=== PATIENT | male | born 1960 | race African-American/Black ===

== ENCOUNTER 2018-03-19 08:21 | Inpatient (IN) | payer OTHER ==
[2018-03-19] MEDS ORDERED: PANTOPRAZOLE SODIUM 40 MG in SODIUM CHLORIDE 100 ML IVPB ONE (09:03)
[2018-03-19] MEDS ORDERED: SODIUM CHLORIDE 1,000 ML IV STA ×2 (09:03→10:52)
[2018-03-19] MEDS ORDERED: PANTOPRAZOLE SODIUM 40 MG VIAL ONE ×2 (09:05→12:49)
[2018-03-19 09:51] LABS: BASO % 0.5 % (0-2.0); EOS % 0.4 % (0-4.5); HEMATOCRIT 32.1 % (35.4-49); LYMPH % 18.4 % (8-40); MCH 32.7 pg (25.7-33.7); MCHC 34.3 g/dl (32.0-35.9); MEAN CELL VOLUME 95.3 fl (80-96); MONO % 9.2 % (3.8-10.2); NEUT % 71.5 % (42.8-82.8); PLATELET COUNT 234 K/MM3 (134-434); RBC 3.37 M/mm3 (4.00-5.60); RDW 13.6 % (11.9-15.9); WHITE BLOOD COUNT 9.4 K/mm3 (4.0-10.0)
[2018-03-19 10:04] LABS: PROTHROMBIN TIME (PATIENT) 11.3 SEC (9.7-13.0)
[2018-03-19 10:07] LABS: ACTIVATED PTT 25.1 SECONDS (25.2-36.5)
[2018-03-19 10:18] LABS: ALBUMIN 2.8 g/dl (3.4-5.0); ALK PHOS 80 U/L (45-117); ANION GAP 14 (8-16); BILIRUBIN,TOTAL 0.4 mg/dL (0.2-1.0); BLOOD UREA NITROGEN 97 mg/dL (7-18); CALCIUM 8.9 mg/dL (8.5-10.1); CHLORIDE 106 mmol/L (98-107); CO2 23 mmol/L (21-32); CREATININE 4.1 mg/dL (0.7-1.3); GLUCOSE,RANDOM 112 mg/dL (74-106); LIPASE 151 U/L (73-393); POTASSIUM 5.2 mmol/L (3.5-5.1); SGOT/AST 13 U/L (15-37); SGPT/ALT 15 U/L (12-78); SODIUM 143 mmol/L (136-145); TOT PROT 6.3 g/dl (6.4-8.2)
--- NOTE | 2018-03-19 10:25 | PDOC ---
History of Present Illness - General Chief Complaint: Vomiting Blood Stated Complaint: Vomiting Blood Time Seen by Provider: 03/19/18 08:55 - History of Present Illness Initial Comments: 03/19/18 11:29 "The patient is a 57 year old male, with a significant PMH of ETOH abuse, possible early cirrhosis, HTN, diverticulitis, hypercholesterolemia and cardiomyopathy, who presents to the emergency department complaining of vomiting and diarrhea. Pt states that he began vomiting 3 days ago and describes his vomitus was black, as well as his diarrhea. Pt also complains of chronic LLQ abdominal pain, which is unchanged from baseline. He states that he was diagnosed in the past for diverticulitis. The patient denies chest pain, shortness of breath, headache and dizziness. Denies fever, chills, nausea and constipation. Denies dysuria, frequency, urgency and hematuria. Allergies: NKDA Past surgical history: None reported Social history: Current everyday smoker and drinker but denies recreational drug abuse. PCP: Jr Cheek Past History - Past Medical History Allergies/Adverse Reactions: Allergies Allergy/AdvReac Type Severity Reaction Status Date / Time No Known Allergies Allergy Verified 03/19/18 08:30 Home Medications: Ambulatory Orders Amlodipine Besylate 10 mg PO DAILY 03/19/18 Calcitriol [Rocaltrol -] 0.25 mcg PO DAILY 03/19/18 Carvedilol [Coreg -] 25 mg PO BID 03/19/18 Furosemide [Lasix] 40 mg PO BID 03/19/18 Hydralazine HCl 50 mg PO BID 03/19/18 Simvastatin 20 mg PO HS 03/19/18 Tamsulosin HCl [Flomax] 0.4 mg PO HS 03/19/18 COPD: No HTN: Yes Hypercholesterolemia: Yes Other medical history: cardiomyopathy - Immunization History Immunization Up to Date: Yes - Suicide/Smoking/Psychosocial Hx Smoking History: Current some day smoker Number of Cigarettes Smoked Daily: 1 Information on smoking cessation initiated: No Hx Alcohol Use: Yes (social 3 drinks per day) Drug/Substance Use Hx: No Substance Use Type: None Review of Systems - Review of Systems Comments:: 03/19/18 11:13 "GENERAL/CONSTITUTIONAL: No fever or chills. No weakness. HEAD, EYES, EARS, NOSE AND THROAT: No change in vision. No ear pain or discharge. No sore throat. CARDIOVASCULAR: No chest pain or shortness of breath. RESPIRATORY: No cough, wheezing, or hemoptysis. GASTROINTESTINAL: + coffee ground emesis, + black stools, + abdominal pain GENITOURINARY: No dysuria, frequency, or change in urination. MUSCULOSKELETAL: No joint or muscle swelling or pain. No neck or back pain. SKIN: No rash NEUROLOGIC: No headache, vertigo, loss of consciousness, or change in strength/ sensation. ENDOCRINE: No increased thirst. No abnormal weight change. HEMATOLOGIC/LYMPHATIC: No anemia, easy bleeding, or history of blood clots. ALLERGIC/IMMUNOLOGIC: No hives or skin allergy. " *Physical Exam - Vital Signs Last Vital Signs Temp Pulse Resp BP Pulse Ox 98.4 F 86 18 112/72 99 03/19/18 08:24 03/19/18 09:24 03/19/18 09:24 03/19/18 09:24 03/19/18 09:24 - Physical Exam Comments: 03/19/18 11:12 "GENERAL: Awake, alert, and fully oriented, in no acute distress. HEAD: No signs of trauma EYES: PERRLA, EOMI, sclera anicteric, conjunctiva clear ENT: Auricles normal inspection, hearing grossly normal, nares patent, oropharynx clear without exudates. Moist mucosa NECK: Nontender, no stepoffs, Normal ROM, supple, no lymphadenopathy, JVD, or masses LUNGS: Breath sounds equal, clear to auscultation bilaterally. No wheezes, and no crackles HEART: Regular rate and rhythm, normal S1 and S2, no murmurs, rubs or gallops ABDOMEN: + distention with no fluid wave, + LLQ tenderness, no rebound/guarding , normoactive bowel sounds. No masses EXTREMITIES: Normal range of motion, no edema. No clubbing or cyanosis. No cords, erythema, or tenderness NEUROLOGICAL: Cranial nerves II through XII intact. 5/5 strength and sensation in all extremities, Normal speech, normal gait, normal cerebellar function SKIN: Warm, Dry, normal turgor, no rashes or lesions noted." ED Treatment Course - LABORATORY CBC & Chemistry Diagram: 03/19/18 09:20 03/19/18 09:20 - ADDITIONAL ORDERS Additional order review: Laboratory Results 03/19/18 09:20 PT with INR 11.30 INR 1.00 PTT (Actin FS) 25.1 L 03/19/18 09:20 RBC 3.37 L MCV 95.3 MCHC 34.3 RDW 13.6 MPV 9.0 Neutrophils % 71.5 Lymphocytes % 18.4 Monocytes % 9.2 Eosinophils % 0.4 Basophils % 0.5 - RADIOLOGY Radiology Studies Ordered: Category Date Time Status CHEST X-RAY PORTABLE* [RAD] Stat Radiology 03/19/18 09:02 Completed - Medications Given in the ED: ED Medications Discontinued Medications Generic Name Dose Route Start Last Admin Trade Name Freq PRN Reason Stop Dose Admin Pantoprazole Sodium 40 mg/ 100 mls @ 200 mls/hr 03/19/18 09:03 03/19/18 09:36 Sodium Chloride IVPB 03/19/18 09:32 200 mls/hr ONCE ONE Administration Sodium Chloride 1,000 mls @ 1,000 mls/hr 03/19/18 09:03 03/19/18 09:35 Normal Saline - IV 03/19/18 10:02 1,000 mls/hr ASDIR STA Administration Medical Decision Making - Medical Decision Making 03/19/18 10:26 57 M with ETOH abuse presenting to ED with LLQ pain, coffee grounds emesis, and melena. Concerning for GI bleed of unclear etiology. Pt with possible early cirrhosis. Pt will need endoscopy to evaluate upper GI bleed and r/o esophageal varices. Pt also with h/o diverticulitis, though this would not explain hematemesis. - Labs, coags, T&S - CTAP - IVF, transfuse PRN - Protonix - GI consult - Ceftriaxone 03/19/18 12:34 Labs notable for Cr 4, BUN 90 Hb 11 Lactate 2.6 CTAP without acute process. CXR shows possible L sided PNA. Pt given ceftriaxone/azithro Dr. Corral consulted 03/19/18 13:[address] Bee *DC/Admit/Observation/Transfer Diagnosis at time of Disposition: Coffee ground emesis, Melena, Abdominal pain - Discharge Dispostion Decision to Admit order: Yes - Referrals Referrals: Jr Cheek MD [Primary Care Provider] - - Patient Instructions - Post Discharge Activity - Attestations Physician Attestion: 03/19/18 13:00 I, Dr. Jorge Castillo MD, attest that this document has been prepared under my direction and personally reviewed by me in its entirety. I further attest, that it accurately reflects all work, treatment, procedures and medical decision -making performed by me.
[2018-03-19] MEDS ORDERED: CEFTRIAXONE 1,000 MG in DEXTROSE 5%-WATER - 50 ML IVPB ONE (11:11)
[2018-03-19] MEDS ORDERED: CEFTRIAXONE 1 GM/50 ML BAG ONE (11:42)
[2018-03-19] MEDS ORDERED: AZITHROMYCIN IVPB 500 MG in DEXTROSE 5%-WATER - 250 ML IVPB ONE (11:48)
[2018-03-19] MEDS ORDERED: AZITHROMYCIN IVPB 250 ML IVPB ONE (12:18)
[2018-03-19] MEDS ORDERED: PANTOPRAZOLE SODIUM 80 MG in SODIUM CHLORIDE 100 ML IVPB SCH ×2 (12:45→15:45)
--- NOTE | 2018-03-19 12:46 | HP ---
Admitting History and Physical - Primary Care Physician PCP: Jr Cheek - Admission Chief Complaint: vomiting coffeeground emesis History of Present Illness: is a 57 year old male pmh of ETOH abuse,HTN, CKD-4, HLD, CHF, COPD, BPH, Lumbar disk herniation, who comes in with 4 day history of coffee ground emesis and melena. Pt reports dizziness, lightheadedness, sob, chills, nausea, vomiting, and poor po intake since onset. He reports emesis/stool as black. Denies BRBPR. He reports similar previous episode 6 months ago for which he did not seek medical care. Pt reports left sided abdominal pain which is chronic. He is a current smoker/drinker. He reports drinking 1/5th of gin a day , he reports drinking heavily on 03/17. Reports feeling anxious at the moment and reports mild sob. Denies any chest pain, fever,head ache, dysuria, cough. Pt follows up with PCP, Cardiology , and Nephrology Dr.Okponwua renpt. Has not seen GI or ever had egd/colonoscopy. History Source: Patient Limitations to Obtaining History: No Limitations - Past Medical History Cardiovascular: Yes: CHF, HTN, Hyperlipdemia Pulmonary: Yes: COPD Gastrointestinal: Yes: Diverticulitis, Other (umbillical hernia) Renal/: Yes: Renal Failure (stage 4), BPH Psych: Yes: Addictions Musculoskeletal: Yes: Chronic low back pain - Past Surgical History Past Surgical History: Yes: None - Smoking History Smoking history: Current every day smoker Have you smoked in the past 12 months: Yes Aproximately how many cigarettes per day: 5 - Alcohol/Substance Use Hx Alcohol Use: Yes (3-4 drinks gin per day, 2-3x/week) Number of Drinks Daily: 4 (last drink 03/17) History of Substance Use: reports: None - Social History Usual Living Arrangement: Yes: Alone History of Recent Travel: No Home Medications - Allergies Allergies/Adverse Reactions: Allergies Allergy/AdvReac Type Severity Reaction Status Date / Time No Known Allergies Allergy Verified 03/19/18 08:30 - Home Medications Home Medications: Ambulatory Orders Amlodipine Besylate 10 mg PO DAILY 03/19/18 Calcitriol [Rocaltrol -] 0.25 mcg PO DAILY 03/19/18 Carvedilol [Coreg -] 25 mg PO BID 03/19/18 Furosemide [Lasix] 40 mg PO PRN PRN 03/19/18 Hydralazine HCl 25 mg PO BID 03/19/18 Simvastatin 20 mg PO HS 03/19/18 Tamsulosin HCl [Flomax] 0.4 mg PO HS 03/19/18 Family Disease History - Family Disease History Family Disease History: Diabetes: Mother, Sister (ckd), Heart Disease: Mother, Sister Review of Systems Findings/Remarks: as per hpi Physical Examination Vital Signs: Vital Signs Temperature 98.4 F 03/19/18 08:24 Pulse Rate 86 03/19/18 09:24 Respiratory Rate 18 03/19/18 09:24 Blood Pressure 112/72 03/19/18 09:24 O2 Sat by Pulse Oximetry (%) 99 03/19/18 09:24 Constitutional: Yes: Well Nourished, Anxious, Mild Distress Cardiovascular: Yes: Regular Rate and Rhythm, Tachycardia. No: Gallop, Murmur Respiratory: Yes: Regular, CTA Bilaterally, SOB. No: Accessory Muscle Use, Rales, Rhonchi, Tachypnea, Wheezes Gastrointestinal: Yes: Normal Bowel Sounds, Abdomen, Obese, Ascites, Distention , Hematemesis, Hernia (umbillical), Melena, Vomiting. No: Tenderness Renal/: Yes: WNL Edema: No Neurological: Yes: WNL, Alert, Oriented Psychiatric: Yes: WNL, Alert, Oriented Labs: CBC, BMP 03/19/18 09:20 03/19/18 09:20 Imaging - Results Chest X-ray: Report Reviewed Cat Scan: Report Reviewed (no acute changes) Problem List - Problems (1) Esophageal varices with bleeding Assessment/Plan: 4 days of coffee ground emesis/melena w/ dizziness/sob/lightheaded hypotensive, hg/hct stable- might be falsely elevated repeat cbc stat transfuse hg <8 protonix/octreotide drip ceftriaxone trend lactic acid STAT GI consult- case discussed with , pt to have egd today ICU level of care Code(s): I85.01 - ESOPHAGEAL VARICES WITH BLEEDING Qualifiers: Esophageal varices type: secondary Qualified Code(s): I85.11 - Secondary esophageal varices with bleeding (2) Acute blood loss anemia Assessment/Plan: as above Code(s): D62 - ACUTE POSTHEMORRHAGIC ANEMIA (3) Dizziness Assessment/Plan: secondary to active bleeding Code(s): R42 - DIZZINESS AND GIDDINESS (4) Lightheadedness Assessment/Plan: as above Code(s): R42 - DIZZINESS AND GIDDINESS (5) Coffee ground emesis Assessment/Plan: suspect variceal bleed as above Code(s): K92.0 - HEMATEMESIS (6) Melena Assessment/Plan: as above Code(s): K92.1 - MELENA (7) Abdominal pain Assessment/Plan: chronic, baseline monitor Code(s): R10.9 - UNSPECIFIED ABDOMINAL PAIN Qualifiers: Abdominal location: left lower quadrant Qualified Code(s): R10.32 - Left lower quadrant pain (8) HTN (hypertension) Assessment/Plan: hypotensive hold meds consider adding nadolol/propanolol when hemodynamically stable Code(s): I10 - ESSENTIAL (PRIMARY) HYPERTENSION (9) COPD (chronic obstructive pulmonary disease) Assessment/Plan: stable smoking cessation Code(s): J44.9 - CHRONIC OBSTRUCTIVE PULMONARY DISEASE, UNSPECIFIED (10) CKD (chronic kidney disease) stage 4, GFR 15-29 ml/min Assessment/Plan: at baseline monitor Code(s): N18.4 - CHRONIC KIDNEY DISEASE, STAGE 4 (SEVERE) (11) CHF (congestive heart failure) Assessment/Plan: chronic, euvolemic last echo 08/28- nl lv/rv last mibi 08/28- nl lvef, no ischemia lasix prn per pt monitor Code(s): I50.9 - HEART FAILURE, UNSPECIFIED Qualifiers: Heart failure chronicity: chronic (12) Hyperlipidemia Assessment/Plan: stable continue statin when clinically stable Code(s): E78.5 - HYPERLIPIDEMIA, UNSPECIFIED Qualifiers: Hyperlipidemia type: pure hypercholesterolemia Qualified Code(s): E78.00 - Pure hypercholesterolemia, unspecified; E78.0 - Pure hypercholesterolemia (13) Alcohol abuse Assessment/Plan: last drink 03/17 avoid withdrawal ativan prn/protocol monitor Code(s): F10.10 - ALCOHOL ABUSE, UNCOMPLICATED (14) Tobacco dependence Assessment/Plan: advise smoking cessation nicotine patch if pt prefers Code(s): F17.200 - NICOTINE DEPENDENCE, UNSPECIFIED, UNCOMPLICATED
[2018-03-19] MEDS ORDERED: OCTREOTIDE ACETATE 1,200 MCG in DEXTROSE 5%-WATER - 488 ML IVPB SCH (13:00)
[2018-03-19] MEDS ORDERED: PANTOPRAZOLE SODIUM 160 MG in SODIUM CHLORIDE 290 ML IVPB SCH ×2 (13:22→14:46)
--- NOTE | 2018-03-19 13:56 | PN ---
Teaching Attending Note Name of Resident: Sebas Culver ATTENDING PHYSICIAN STATEMENT I saw and evaluated the patient. I reviewed the resident's note and discussed the case with the resident. I agree with the resident's findings and plan as documented. SUBJECTIVE: Pt seen and examined in the ER. Briefly, 57yo male with h/o HTN, hypercholesterolemia, BPH, COPD, alcohol dependence, possible liver cirrhosis who presents with coffee ground emesis and melena x 3-4 days. Denies BRBPR. Some left sided abdominal discomfort and shortness of breath without chest pain. No dizziness, lightheadedness. Has never seen a shoe trimmer, no history of endoscopy or colonoscopy. Denies NSAID use. OBJECTIVE: Vital Signs Period Temp Pulse Resp BP Sys/Cannon Pulse Ox Last 24 Hr 98.4 F 86-91 18-20 85-135/60-108 98-99 Intake & Output 03/16/18 03/17/18 03/18/18 03/19/18 23:59 23:59 23:59 23:59 Weight 105.687 kg Gen: anxious Heart: RRR Lung: decreased breath sounds at the bases Abd: softly distended, nontender Ext: no edema CBC, BMP 03/19/18 09:20 03/19/18 09:20 Active Medications Chlorhexidine Gluconate (Hibiclens For Decolonization -) 1 applic TP HS WANDA Octreotide Acetate 1,200 mcg/ (Dextrose) 500 mls @ 20.83 mls/hr IVPB TITR WANDA; Protocol Pantoprazole Sodium 160 mg/ (Sodium Chloride) 290 mls @ 14.5 mls/hr IVPB Q10H WANDA Ceftriaxone Sodium 1 gm/ (Dextrose) 100 mls @ 200 mls/hr IVPB DAILY WANDA; Protocol Mupirocin (Bactroban Ointment (For Decolonization) -) 1 applic NS BID WANDA Stop: 03/24/18 21:59 ASSESSMENT AND PLAN: GI Bleed likely Upper Acute Blood Loss Anemia r/o Liver Cirrhosis Acute Kidney Injury Lactic Acidosis HTN BPH COPD Alcohol Dependence/Abuse - NPO - IVF - ensure large bore peripheral access - protonix gtt - octreotide gtt - GI eval for endoscopy - trend lactate - monitor for withdrawal symptoms, would start on empiric librium protocol - mechanical DVT prophylaxis - monitor in ICU for now, await endoscopy Thank you for this consult Boo Ambrocio MD
[2018-03-19] MEDS ORDERED: LORazepam 2 MG/ML SDV VIAL IVPUSH PRN (14:01)
[2018-03-19] MEDS ORDERED: EPINEPHrine 1:10,000 (P-F SYR) 1 MG/10 ML DISP.SYRIN ONE (14:03)
[2018-03-19] MEDS ORDERED: LIDOCAINE HCL 2% (20ML MULTI-DOSE VIAL) NR ONE (14:13)
[2018-03-19] MEDS ORDERED: ROCURONIUM BROMIDE 50 MG/5 ML VIAL ONE (14:13)
[2018-03-19] MEDS ORDERED: SUCCINYLCHOLINE CHLORIDE 200 MG/10 ML VIAL ONE (14:13)
[2018-03-19] MEDS ORDERED: PROPOFOL 20 ML ONE ×2 (14:13)
[2018-03-19] MEDS ORDERED: DEXAMETHASONE SOD PHOSPHATE 10 MG/1 ML VIAL ONE (14:14)
[2018-03-19] MEDS ORDERED: ONDANSETRON 4 MG/2 ML VIAL ONE (14:14)
--- NOTE | 2018-03-19 14:27 | CON.GI ---
Consult Consult Specialty:: GI Reason for Consultation:: upper GI bleeding - History of Present Illness History of Present Illness: Chart reviewed. ED records noteed. per initial intake: "The patient is a 57 year old male, with a significant PMH of ETOH abuse, possible early cirrhosis, HTN, diverticulitis, hypercholesterolemia and cardiomyopathy, who presents to the emergency department complaining of vomiting and diarrhea. Pt states that he began vomiting 3 days ago and describes his vomitus was black, as well as his diarrhea. Pt also complains of chronic LLQ abdominal pain, which is unchanged from baseline. He states that he was diagnosed in the past for diverticulitis. The patient denies chest pain, shortness of breath, headache and dizziness. Denies fever, chills, nausea and constipation. Denies dysuria, frequency, urgency and hematuria. CT A/P w/o no acute GI/hep pathology At the time of this encounter - Past Medical History Cardio/Vascular: Yes: HTN, Hyperlipdemia Pulmonary: Yes: COPD Renal/: Yes: Renal Failure (stage 4) Musculoskeletal: Yes: Chronic low back pain - Past Surgical History Past Surgical History: Yes: None - Alcohol/Substance Use Hx Alcohol Use: Yes (3-4 drinks per day, 2-3x/week) Number of Drinks Daily: 4 (last drink 03/17) History of Substance Use: reports: None - Smoking History Smoking history: Current some day smoker Have you smoked in the past 12 months: Yes Aproximately how many cigarettes per day: 5 - Social History History of Recent Travel: No Home Medications - Allergies Allergies/Adverse Reactions: Allergies Allergy/AdvReac Type Severity Reaction Status Date / Time No Known Allergies Allergy Verified 03/19/18 08:30 - Home Medications Home Medications: Ambulatory Orders Amlodipine Besylate 10 mg PO DAILY 03/19/18 Calcitriol [Rocaltrol -] 0.25 mcg PO DAILY 03/19/18 Carvedilol [Coreg -] 25 mg PO BID 03/19/18 Furosemide [Lasix] 40 mg PO PRN PRN 03/19/18 Hydralazine HCl 25 mg PO BID 03/19/18 Simvastatin 20 mg PO HS 03/19/18 Tamsulosin HCl [Flomax] 0.4 mg PO HS 03/19/18 Family Disease History - Family Disease History Family Disease History: Diabetes: Mother, Sister (ckd), Heart Disease: Mother, Sister Review of Systems Findings/Remarks: as per HPI, ED, H&P Physical Exam-GI Vital Signs: Vital Signs Temperature 98.4 F 03/19/18 08:24 Pulse Rate 89 03/19/18 13:24 Respiratory Rate 20 03/19/18 13:24 Blood Pressure 135/108 03/19/18 13:24 O2 Sat by Pulse Oximetry (%) 98 03/19/18 13:24 Labs: CBC, BMP 03/19/18 09:20 03/19/18 09:20 INR, PTT INR 1.00 (0.83-1.09) 03/19/18 09:20 Imaging - Results Cat Scan: Report Reviewed Assessment/Plan A 57M with history, presentation as above and risk factors for upper GI bleeding presents with coffee-ground emesis, dark stools and normocytic, normochromic anemia w/o hemodynamic instability. BUN 97, Ct 4, normal liver chemistry, PT, PLT, Lipase. Agree with current management initialed in ED. EGD today.
[2018-03-19] MEDS ORDERED: MIDAZOLAM HCL 2 MG/2 ML SINGLE DOSE VIAL ONE (15:00)
--- NOTE | 2018-03-19 15:01 | CONSULT ---
Consultation: REQUESTING PROVIDER: CONSULT REQUEST: We have been asked to medically evaluate this patient for ( coffe ground emesis). HISTORY OF PRESENT ILLNESS: is a 57 year old gentleman with a past medical hisory of ETOH abuse, HTN, CKD-4, HLD, CHF, COPD, BPH, Lumbar disk herniation, who presented to [facility] c/o coffee ground emeses and dark, tarry stool that has began 4 days ago. Pt endorses experiencing a similar previous episode 6 months prior to this episode for which he did not seek medical attention. Pt also reports left sided abdominal pain which has been chronic according to patient. Pt endorses he consumes a large amount of alcohol endorsing he drinks about 1/5th of gin a day. Pt states that he drank very heavy this past Friday night. Reports feeling anxious at the moment and reports mild sob. States he has been losing weight over the past few months, exact amount not sure of. Denies any chest pain , fever,head ache, dysuria, cough. Denies bright red blood per rectum. Pt has just completed an EGD with Dr Corral as suspicion for upper G.I bleed is high. Allergies: NKDA Past surgical history: None reported Social history: Current everyday smoker and drinker but denies recreational drug abuse. Meds: Amlodipine Besylate 10 mg PO DAILY, Calcitriol 0.25 mcg PO DAILY, Carvedilol 25 mg PO BID, Furosemide 40 mg PO BID Hydralazine HCl 50 mg PO BID ,Simvastatin 20 mg PO HS , Tamsulosin HCl 0.4 mg PO HS PCP: Jr Cheek REVIEW OF SYSTEMS: CONSTITUTIONAL: PRESENT: generalized weakness, malaise, loss of appetite, weight change HEENT: Absent: rhinorrhea, nasal congestion, throat pain, throat swelling, difficulty swallowing, mouth swelling, ear pain, eye pain, visual changes CARDIOVASCULAR: Absent: chest pain, syncope, palpitations, irregular heart rate, lightheadedness , peripheral edema RESPIRATORY: Absent: cough, shortness of breath, dyspnea with exertion, orthopnea, wheezing, stridor, hemoptysis GASTROINTESTINAL: PRESENT: abdominal pain, abdominal distension, nausea, vomiting, melena, hematochezia GENITOURINARY: Absent: dysuria, frequency, urgency, hesitancy, hematuria, flank pain, genital pain MUSCULOSKELETAL: Absent: myalgia, arthralgia, joint swelling, back pain, neck pain SKIN: Absent: rash, itching, pallor HEMATOLOGIC/IMMUNOLOGIC: Absent: easy bleeding, easy bruising, lymphadenopathy, frequent infections ENDOCRINE: Absent: unexplained weight gain, unexplained weight loss, heat intolerance, cold intolerance NEUROLOGIC: Absent: headache, focal weakness or paresthesias, dizziness, unsteady gait, seizure, mental status changes, bladder or bowel incontinence PSYCHIATRIC: Absent: anxiety, depression, suicidal or homicidal ideation, hallucinations. PHYSICAL EXAMINATION Vital Signs - 24 hr 03/19/18 03/19/18 03/19/18 08:24 09:24 13:24 Temperature 98.4 F Pulse Rate 91 H Pulse Rate [ 86 89 Apical] Respiratory 20 18 20 Rate Blood Pressure 85/60 Blood Pressure 112/72 135/108 [Left Arm] O2 Sat by Pulse 99 99 98 Oximetry (%) GENERAL: Alert and oriented. Sitting in ER. HEAD: NC/AT EYES: EOMI EARS, NOSE, THROAT: MMM NECK: Supple LUNGS: CTA B/L HEART: Tachycardia ABDOMEN: Umbilical Hernia, truncal obesity MUSCULOSKELETAL: Full ROM UPPER EXTREMITIES: No CCE LOWER EXTREMITIES: No CCE NEUROLOGICAL: no Neuro deficits PSYCHIATRIC: Cooperative. Good eye contact. Appropriate mood and affect. SKIN: Warm, dry, normal turgor, no rashes or lesions noted. Laboratory Results - last 24 hr 03/19/18 03/19/18 03/19/18 09:20 09:20 09:20 WBC 9.4 RBC 3.37 L Hgb 11.0 L Hct 32.1 L MCV 95.3 MCH 32.7 MCHC 34.3 RDW 13.6 Plt Count 234 MPV 9.0 Absolute Neuts (auto) 6.8 Neutrophils % 71.5 Lymphocytes % 18.4 Monocytes % 9.2 Eosinophils % 0.4 Basophils % 0.5 Nucleated RBC % 0 PT with INR 11.30 INR 1.00 PTT (Actin FS) 25.1 L Sodium Potassium Chloride Carbon Dioxide Anion Gap BUN Creatinine Creat Clearance w eGFR Random Glucose Lactic Acid Calcium Total Bilirubin AST ALT Alkaline Phosphatase Ammonia Creatine Kinase 44 Troponin I < 0.02 Total Protein Albumin Lipase Blood Type Antibody Screen 03/19/18 03/19/18 03/19/18 09:20 09:20 09:20 WBC RBC Hgb Hct MCV MCH MCHC RDW Plt Count MPV Absolute Neuts (auto) Neutrophils % Lymphocytes % Monocytes % Eosinophils % Basophils % Nucleated RBC % PT with INR INR PTT (Actin FS) Sodium 143 Potassium 5.2 H Chloride 106 Carbon Dioxide 23 Anion Gap 14 BUN 97 H Creatinine 4.1 H Creat Clearance w eGFR 15.06 Random Glucose 112 H Lactic Acid 2.6 H* Calcium 8.9 Total Bilirubin 0.4 AST 13 L ALT 15 Alkaline Phosphatase 80 Ammonia 31.73 Creatine Kinase Troponin I Total Protein 6.3 L Albumin 2.8 L Lipase 151 Blood Type Antibody Screen 03/19/18 03/19/18 09:20 12:05 WBC RBC Hgb Hct MCV MCH MCHC RDW Plt Count MPV Absolute Neuts (auto) Neutrophils % Lymphocytes % Monocytes % Eosinophils % Basophils % Nucleated RBC % PT with INR INR PTT (Actin FS) Sodium Potassium Chloride Carbon Dioxide Anion Gap BUN Creatinine Creat Clearance w eGFR Random Glucose Lactic Acid Calcium Total Bilirubin AST ALT Alkaline Phosphatase Ammonia Creatine Kinase Troponin I Total Protein Albumin Lipase Blood Type O POSITIVE O POSITIVE Antibody Screen Negative Active Medications Generic Name Dose Route Start Last Admin Trade Name Rodrigoq PRN Reason Stop Dose Admin Chlorhexidine Gluconate 1 applic 03/19/18 22:00 Hibiclens For Decolonization - TP HS WANDA Octreotide Acetate 1,200 mcg/ 500 mls @ 20.83 mls/hr 03/19/18 13:00 03/19/18 14:25 Dextrose IVPB 20.83 mls/hr TITR WANDA Administration Protocol 50 MCG/HR Ceftriaxone Sodium 1 gm/ 50 mls @ 200 mls/hr 03/20/18 10:00 Dextrose IVPB DAILY WANDA Protocol Folic Acid 1 mg/ Thiamine HCl 1,000 mls @ 125 mls/hr 03/19/18 14:30 100 mg/ Multivitamins/Minerals IVPB 03/19/18 22:29 10 ml/ Sodium Chloride ONCE ONE Pantoprazole Sodium 160 mg/ 290 mls @ 14.5 mls/hr 03/19/18 14:46 Sodium Chloride IVPB Q10H WANDA 8 MG/HR Lorazepam 1 mg 03/19/18 14:01 Ativan Injection - IVPUSH Q6H PRN WITHDRAWAL(CONT SUBST) Mupirocin 1 applic 03/19/18 22:00 Bactroban Ointment (For Decolonization) - NS 03/24/18 21:59 BID WANDA ASSESSMENT/PLAN: is a 57 year old gentleman with a past medical hisory of ETOH abuse, HTN, CKD-4, HLD, CHF, COPD, BPH, Lumbar disk herniation, who presented to [facility] c/o coffee ground emeses and dark, tarry stool that has began 4 days ago. Upper G.I Bleed 2/2 heavy alcohol consumption/ H/ Pylori -NPO -Protonic gtt 290 mls @ 14.5 mls/hr IVPB -Octreotide gtt 500 mls @ 20.83 mls/hr IVPB -Ceftriaxone 1 GM 50 mls @ 200 mls/hr IVPB -Follow Lactic Acid Levels -transfuse hg <8 -CBC Q12H H/H -EGD w/ Dr Corral -Start Liquid diet tomorrow Alcohol Abuse/Withdrawel -Ativan Injection 1 mg IVPUSH Q6H PRN -Folic Acid 1 mg/ Thiamine HCl 1,000 mls @ 125 mls/hr IVPB -Begin Librium Protocol HTN, HLD -Amlodipine Besylate 10 mg PO DAILY -Hydralazine HCl 50 mg PO BID BPH -Tamsulosin HCl 0.4 mg PO HS FEN No Fluids Monitor electrolytes NPO DVT ppx: AC contraindicated due to bleeding Dispo: We will continue to follow the patient. Thank you for this consultative opportunity. Visit type - Emergency Visit Emergency Visit: Yes ED Registration Date: 03/19/18 Care time: The patient presented to the Emergency Department on the above date and was hospitalized for further evaluation of their emergent condition. - New Patient This patient is new to me today: Yes Date on this admission: 03/19/18 - Critical Care Critical Care patient: Yes Total Critical Care Time (in minutes): 35 Critical Care Statement: The care of this patient involved high complexity decision making to prevent further life threatening deterioration of the patient 's condition and/or to evaluate & treat vital organ system(s) failure or risk of failure.
[2018-03-19] MEDS ORDERED: DESFLURANE GAS 240 ML BOTTLE IH ONE (15:31)
[2018-03-19] MEDS ORDERED: SEVOFLURANE 250 ML BTL ONE (15:31)
--- NOTE | 2018-03-19 15:34 | EKG ---
Test Reason : Blood Pressure : / mmHG Vent. Rate : 080 BPM Atrial Rate : 080 BPM P-R Int : 158 ms QRS Dur : 082 ms QT Int : 360 ms P-R-T Axes : 056 055 069 degrees QTc Int : 415 ms NORMAL SINUS RHYTHM NONSPECIFIC T WAVE ABNORMALITY ABNORMAL ECG NO PREVIOUS ECGS AVAILABLE Confirmed by RAJAN ARGUETA, FARHAN ([id number]) on 03/19/2018 3:33:41 PM Referred By: Confirmed By:FARHAN TOLENTINO MD
--- NOTE | 2018-03-19 15:51 | PROC ---
Endoscopy Procedure Endoscopy procedure completed. Please see scanned procedure report. A 2 cm buodenal bulb ulcer with attached blood clot and oozing of blood was found. The clot was removed via cold forceps biopsy, the visible, bleeding vessel was cauterized with heater probe. Complete hemostasis was achieved an observed for 5 minutes. Normal EGD otherwise. Random gastric biopsies were taken. No stigmata of liver diseases noted. PPI drip Liquid carafate NPO today, full liquid diet in am Follow biopsies No NSAIDS
[2018-03-19 16:56] VITALS: BMI 31.3
[2018-03-19] MEDS: FOLIC ACID INJECTION - 1 MG, THIAMINE HCL 100 MG, MULTIVIT INJECTION ADULT 10 ML in SOD... IVPB ONE (17:30)
[2018-03-19] MEDS: PANTOPRAZOLE SODIUM 160 MG in DEXTROSE 5%-WATER - 290 ML IVPB SCH (17:43)
[2018-03-19] MEDS: SUCRALFATE 1 GM/10 ML UNIT DOSE CUPS PO SCH ×2 (17:43→21:59)
[2018-03-19] MEDS: hydrALAZINE HCL 50 MG TABLET (FP) PO SCH (21:59)
[2018-03-19 22:00] LABS: BASO % 0.2 % (0-2.0); HEMATOCRIT 29.8 % (35.4-49); HEMOGLOBIN 9.8 GM/dL (11.7-16.9); MCH 31.9 pg (25.7-33.7); MEAN CELL VOLUME 96.6 fl (80-96); MEAN PLT VOLUME 8.9 fl (7.5-11.1); MONO % 1.1 % (3.8-10.2); NEUT % 91.7 % (42.8-82.8); PLATELET COUNT 213 K/MM3 (134-434); RBC 3.08 M/mm3 (4.00-5.60); WHITE BLOOD COUNT 12.3 K/mm3 (4.0-10.0)
[2018-03-19] MEDS ORDERED: TAMSULOSIN HCL 0.4 MG CAP.ER.24H (FP) PO SCH (22:00)
[2018-03-19] MEDS: CARVEDILOL 25 MG TABLET (FP) PO SCH (22:00)
[2018-03-19] MEDS ORDERED: CHLORHEXIDINE GLUCONATE 4% CLEANSER FOR DECOLONIZATION TP SCH (22:00)
[2018-03-19] MEDS: MUPIROCIN 2% TOPICAL OINTMENT FOR DECOLONIZATION NS SCH (22:07)
[2018-03-19] MEDS ORDERED: FOLIC ACID INJECTION - 1 MG, THIAMINE HCL 100 MG, MULTIVIT INJECTION ADULT 10 ML in SOD... IVPB ONE (22:15)
[2018-03-19 22:29] LABS: ANION GAP 9 (8-16); CALCIUM 8.4 mg/dL (8.5-10.1); CHLORIDE 110 mmol/L (98-107); CO2 22 mmol/L (21-32); CREATININE 3.9 mg/dL (0.7-1.3); GLUCOSE,RANDOM 154 mg/dL (74-106); SODIUM 141 mmol/L (136-145)
[2018-03-19 22:38] LABS: BLOOD UREA NITROGEN 109 mg/dL (7-18)
[2018-03-19] MEDS ORDERED: amLODIPine BESYLATE 10 MG TABLET (FP) PO ONE (22:45)
[2018-03-19 23:14] LABS: ANISOCYTOSIS 1+
[2018-03-19 23:15] LABS: MACROCYTOSIS 1+; PLATELET ESTIMATE ADEQUATE
[2018-03-19] MEDS ORDERED: SODIUM POLYSTYRENE SULFONATE 15 GM/60 ML BOTTLE PO ONE (23:15)
[2018-03-20 06:13] LABS: HEMATOCRIT 25.5 % (35.4-49); HEMOGLOBIN 8.6 GM/dL (11.7-16.9); MCHC 33.6 g/dl (32.0-35.9); MEAN CELL VOLUME 95.2 fl (80-96); MEAN PLT VOLUME 9.1 fl (7.5-11.1); PLATELET COUNT 188 K/MM3 (134-434); RBC 2.68 M/mm3 (4.00-5.60); RDW 13.6 % (11.9-15.9); WHITE BLOOD COUNT 12.6 K/mm3 (4.0-10.0)
[2018-03-20 06:33] LABS: CHLORIDE 110 mmol/L (98-107); POTASSIUM 5.6 mmol/L (3.5-5.1); SODIUM 142 mmol/L (136-145)
[2018-03-20 06:45] LABS: ALBUMIN 2.5 g/dl (3.4-5.0); ALK PHOS 66 U/L (45-117); ANION GAP 11 (8-16); BILIRUBIN,TOTAL 0.2 mg/dL (0.2-1.0); BLOOD UREA NITROGEN 100 mg/dL (7-18); CALCIUM 8.5 mg/dL (8.5-10.1); CO2 21 mmol/L (21-32); GLUCOSE,RANDOM 128 mg/dL (74-106); MAGNESIUM 2.9 mg/dL (1.8-2.4); PHOSPHOROUS 3.2 mg/dL (2.5-4.9); SGOT/AST 11 U/L (15-37); SGPT/ALT 13 U/L (12-78); TOT PROT 5.9 g/dl (6.4-8.2)
--- NOTE | 2018-03-20 08:12 | PN ---
Progress Note (short form) - Note Progress Note: Anesthesia Post-op Note Pt s/p EGD on 03/19/18. Pt reports that he is doing well. Reports pain and nausea controlled. OOB and ambulating without issue. Vital Signs Temperature 98.6 F 03/20/18 06:00 Pulse Rate 90 03/20/18 06:00 Respiratory Rate 18 03/20/18 06:00 Blood Pressure 155/100 03/20/18 06:00 O2 Sat by Pulse Oximetry (%) 98 03/19/18 13:24 Continue current management. OOB. Encourage ISS. Bowel regimen with pain medications.
[2018-03-20] MEDS ORDERED: SODIUM POLYSTYRENE SULFONATE 15 GM/60 ML BOTTLE PO ONE (09:30)
[2018-03-20] MEDS ORDERED: INSULIN REGULAR HUMAN 100 UNITS/ML *VIAL IVPUSH ONE (09:32)
[2018-03-20] MEDS ORDERED: PT OWN MED DRAWER 7, Y5N ONE ×3 (09:33→17:22)
[2018-03-20] MEDS: SUCRALFATE 1 GM/10 ML UNIT DOSE CUPS PO SCH ×4 (09:53→21:59)
[2018-03-20] MEDS: hydrALAZINE HCL 50 MG TABLET (FP) PO SCH (09:53)
[2018-03-20] MEDS: CARVEDILOL 25 MG TABLET (FP) PO SCH ×2 (09:53→21:59)
[2018-03-20] MEDS: MUPIROCIN 2% TOPICAL OINTMENT FOR DECOLONIZATION NS SCH (09:55)
--- NOTE | 2018-03-20 09:58 | PN ---
Progress Note, Physician Chief Complaint: Pt sitting in chair in no acute distress. denies any N/V/D,sob, chest pain. tolerated diet this am. ambulating without difficulty - Current Medication List Current Medications: Active Medications Amlodipine Besylate (Norvasc -) 10 mg PO DAILY [facility] Last Admin: 03/20/18 09:53 Dose: 10 mg Calcium Gluconate (Calcium Gluconate 10% -) 1,000 mg IVPUSH ONCE ONE Stop: 03/20/18 10:01 Carvedilol (Coreg -) 25 mg PO BID [facility] Last Admin: 03/20/18 09:53 Dose: 25 mg Chlorhexidine Gluconate (Hibiclens For Decolonization -) 1 applic TP HS [facility] Last Admin: 03/19/18 22:00 Dose: 1 applic Hydralazine HCl (Apresoline -) 25 mg PO BID [facility] Last Admin: 03/20/18 09:53 Dose: 25 mg Pantoprazole Sodium 160 mg/ (Dextrose) 290 mls @ 14.5 mls/hr IVPB Q20H [facility] Last Admin: 03/19/18 17:43 Dose: 14.5 mls/hr Lorazepam (Ativan Injection -) 1 mg IVPUSH Q6H PRN PRN Reason: WITHDRAWAL(CONT SUBST) Mupirocin (Bactroban Ointment (For Decolonization) -) 1 applic NS BID [facility] Stop: 03/24/18 21:59 Last Admin: 03/20/18 09:55 Dose: 1 applic Sodium Bicarbonate (Sodium Bicarbonate 8.4% -) 50 meq IVPUSH ONCE ONE Stop: 03/20/18 10:01 Sucralfate (Carafate Oral Suspension -) 1 gm PO QID [facility] Last Admin: 03/20/18 09:53 Dose: 1 gm Tamsulosin HCl (Flomax -) 0.4 mg PO HS [facility] Last Admin: 03/19/18 22:00 Dose: 0.4 mg - Objective Vital Signs: Vital Signs Temperature 98.6 F 03/20/18 06:00 Pulse Rate 95 H 03/20/18 08:00 Respiratory Rate 18 03/20/18 09:00 Blood Pressure 145/108 03/20/18 08:00 O2 Sat by Pulse Oximetry (%) 98 03/19/18 13:24 Constitutional: Yes: Well Nourished, No Distress, Calm Cardiovascular: Yes: WNL, Regular Rate and Rhythm. No: Gallop, Murmur Respiratory: Yes: WNL, Regular, CTA Bilaterally. No: Accessory Muscle Use, Rhonchi, SOB, Tachypnea, Wheezes Gastrointestinal: Yes: Normal Bowel Sounds, Soft, Abdomen, Obese, Hernia ( umbillical). No: Melena, Tenderness Genitourinary: Yes: WNL Extremities: Yes: WNL Edema: No Neurological: Yes: WNL, Alert, Oriented Psychiatric: Yes: WNL, Alert, Oriented Labs: CBC, BMP 03/20/18 05:30 03/20/18 05:30 INR, PTT INR 1.00 (0.83-1.09) 03/19/18 09:20 Problem List - Problems (1) Duodenal ulcer with hemorrhage Code(s): K26.4 - CHRONIC OR UNSPECIFIED DUODENAL ULCER WITH HEMORRHAGE (2) Acute blood loss anemia Code(s): D62 - ACUTE POSTHEMORRHAGIC ANEMIA (3) Dizziness Code(s): R42 - DIZZINESS AND GIDDINESS (4) Lightheadedness Code(s): R42 - DIZZINESS AND GIDDINESS (5) Coffee ground emesis Code(s): K92.0 - HEMATEMESIS (6) Melena Code(s): K92.1 - MELENA (7) Abdominal pain Code(s): R10.9 - UNSPECIFIED ABDOMINAL PAIN Qualifiers: Abdominal location: left lower quadrant Qualified Code(s): R10.32 - Left lower quadrant pain (8) HTN (hypertension) Code(s): I10 - ESSENTIAL (PRIMARY) HYPERTENSION (9) COPD (chronic obstructive pulmonary disease) Code(s): J44.9 - CHRONIC OBSTRUCTIVE PULMONARY DISEASE, UNSPECIFIED (10) CKD (chronic kidney disease) stage 4, GFR 15-29 ml/min Code(s): N18.4 - CHRONIC KIDNEY DISEASE, STAGE 4 (SEVERE) (11) CHF (congestive heart failure) Code(s): I50.9 - HEART FAILURE, UNSPECIFIED Qualifiers: Heart failure chronicity: chronic (12) Hyperlipidemia Code(s): E78.5 - HYPERLIPIDEMIA, UNSPECIFIED Qualifiers: Hyperlipidemia type: pure hypercholesterolemia Qualified Code(s): E78.00 - Pure hypercholesterolemia, unspecified; E78.0 - Pure hypercholesterolemia (13) Alcohol abuse Code(s): F10.10 - ALCOHOL ABUSE, UNCOMPLICATED (14) Tobacco dependence Code(s): F17.200 - NICOTINE DEPENDENCE, UNSPECIFIED, UNCOMPLICATED (15) Hyperkalemia Code(s): E87.5 - HYPERKALEMIA Assessment/Plan (1) Duodenal ulcer with hemorrhage Assessment/Plan: s/p egd- reveals 2 cm buodenal bulb ulcer, bleeding stopped hemodynamically stable hg/hg slightly trending down transfuse hg <8 carafate/protonix full liquids diet avoid nsaids ICU level of care Code(s): K26.4 - CHRONIC OR UNSPECIFIED DUODENAL ULCER WITH HEMORRHAGE (2) Acute blood loss anemia Assessment/Plan: as above Code(s): D62 - ACUTE POSTHEMORRHAGIC ANEMIA (3) Lightheadedness Assessment/Plan: intermittent, suspect due to acute anemia monitor Code(s): R42 - DIZZINESS AND GIDDINESS (4) Hyperkalemia Assessment/Plan: K 5.6 this am insulin iv 10units/Bicarb/calcium gluconate ordered repeat bmp at noon AVOID kayexalate in this pt with a duodenal ulcer nephrology consulted Code(s): E87.5 - HYPERKALEMIA (5) Abdominal pain Assessment/Plan: chronic, baseline monitor Code(s): R10.9 - UNSPECIFIED ABDOMINAL PAIN Qualifiers: Abdominal location: left lower quadrant Qualified Code(s): R10.32 - Left lower quadrant pain (6) HTN (hypertension) Assessment/Plan: controlled, mildly elevated continue home meds Code(s): I10 - ESSENTIAL (PRIMARY) HYPERTENSION (7) COPD (chronic obstructive pulmonary disease) Assessment/Plan: stable smoking cessation Code(s): J44.9 - CHRONIC OBSTRUCTIVE PULMONARY DISEASE, UNSPECIFIED (8) CKD (chronic kidney disease) stage 4, GFR 15-29 ml/min Assessment/Plan: at baseline monitor Code(s): N18.4 - CHRONIC KIDNEY DISEASE, STAGE 4 (SEVERE) (9) CHF (congestive heart failure) Assessment/Plan: chronic, euvolemic last echo 08/28- nl lv/rv last mibi 08/28- nl lvef, no ischemia lasix prn monitor Code(s): I50.9 - HEART FAILURE, UNSPECIFIED Qualifiers: Heart failure chronicity: chronic (10) Hyperlipidemia Assessment/Plan: stable restart statin Code(s): E78.5 - HYPERLIPIDEMIA, UNSPECIFIED Qualifiers: Hyperlipidemia type: pure hypercholesterolemia Qualified Code(s): E78.00 - Pure hypercholesterolemia, unspecified; E78.0 - Pure hypercholesterolemia (11) Alcohol abuse Assessment/Plan: does not appear to be in acute withdrawal monitor avoid withdrawal ativan prn/protocol detox consult discussed with pt regarding alcohol cessation Code(s): F10.10 - ALCOHOL ABUSE, UNCOMPLICATED (12) Tobacco dependence Assessment/Plan: advise smoking cessation nicotine patch if pt prefers Code(s): F17.200 - NICOTINE DEPENDENCE, UNSPECIFIED, UNCOMPLICATED
[2018-03-20] MEDS ORDERED: amLODIPine BESYLATE 10 MG TABLET (FP) PO SCH (10:00)
[2018-03-20] MEDS ORDERED: CEFTRIAXONE 1 GM in DEXTROSE 5%-WATER - 50 ML IVPB SCH (10:00)
[2018-03-20] MEDS ORDERED: CALCIUM GLUCONATE 10% - 1,000 MG/10 ML VIAL IVPUSH ONE (10:00)
[2018-03-20] MEDS ORDERED: SODIUM BICARBONATE 8.4% 50 MEQ/50 ML DISP.SYRIN IVPUSH ONE (10:00)
--- NOTE | 2018-03-20 10:08 | CONSULT ---
Consult Consult Specialty:: Nephrology ( [facility]/ [facility]) Referred by:: Jackie Shook NP Reason for Consultation:: abnormal kidney functions - History of Present Illness Chief Complaint: is a 57 year old male pmh of ETOH abuse,HTN, CKD-4, HLD, CHF, COPD, BPH, Lumbar disk herniation, who comes in with 4 day history of coffee ground emesis and melena. Pt reports dizziness, lightheadedness, sob, chills, nausea,vomiting, and poor po intake since onset. He reports emesis/ stool as black. He is a current smoker/drinker. He reports drinking 1/5th of gin a day. The patient says that he has [employer] affiliated to [facility]. - History Source History Provided By: Patient - Past Medical History Cardio/Vascular: Yes: CHF, HTN, Hyperlipdemia Pulmonary: Yes: COPD Gastrointestinal: Yes: Diverticulitis, Other (umbillical hernia) Renal/: Yes: Renal Failure (stage 4), BPH Psych: Yes: Addictions Musculoskeletal: Yes: Chronic low back pain - Past Surgical History Past Surgical History: Yes: None - Alcohol/Substance Use Hx Alcohol Use: Yes (3-4 drinks gin per day, 2-3x/week) Number of Drinks Daily: 4 (last drink 03/17) History of Substance Use: reports: None - Smoking History Smoking history: Current every day smoker Have you smoked in the past 12 months: Yes Aproximately how many cigarettes per day: 5 - Social History History of Recent Travel: No Home Medications - Allergies Allergies/Adverse Reactions: Allergies Allergy/AdvReac Type Severity Reaction Status Date / Time No Known Allergies Allergy Verified 03/19/18 08:30 - Home Medications Home Medications: Ambulatory Orders Amlodipine Besylate 10 mg PO DAILY 03/19/18 Calcitriol [Rocaltrol -] 0.25 mcg PO DAILY 03/19/18 Carvedilol [Coreg -] 25 mg PO BID 03/19/18 Furosemide [Lasix] 40 mg PO PRN PRN 03/19/18 Hydralazine HCl 25 mg PO BID 03/19/18 Simvastatin 20 mg PO HS 03/19/18 Tamsulosin HCl [Flomax] 0.4 mg PO HS 03/19/18 Family Disease History - Family Disease History Family Disease History: Diabetes: Mother, Sister (ckd), Heart Disease: Mother, Sister Review of Systems - Review of Systems Constitutional: reports: Loss of Appetite, Weakness. denies: Fever Eyes: denies: Blurred Vision Cardiovascular: reports: Palpitations Respiratory: reports: SOB Gastrointestinal: reports: Abdominal Pain, Melena, Nausea, Vomiting, Vomiting Blood Musculoskeletal: reports: Back Pain, Muscle Pain Neurological: reports: No Symptoms Hematology/Lymphatic: reports: Excessive Bleeding Psychiatric: reports: Anxiety Physical Exam Vital Signs: Vital Signs Temperature 98.6 F 03/20/18 06:00 Pulse Rate 95 H 03/20/18 08:00 Respiratory Rate 18 03/20/18 09:00 Blood Pressure 145/108 03/20/18 08:00 O2 Sat by Pulse Oximetry (%) 98 03/19/18 13:24 Constitutional: Yes: Well Nourished, Anxious Eyes: Yes: Conjunctiva Clear HENT: Yes: Normocephalic Neck: Yes: Trachea Midline Cardiovascular: Yes: Regular Rate and Rhythm, S1, S2 Respiratory: Yes: CTA Bilaterally, Diminished Gastrointestinal: Yes: Normal Bowel Sounds, Hematemesis Renal/: No: CVA Tenderness - Left, CVA Tenderness - Right Musculoskeletal: Yes: Joint Stiffness, Joint Swelling Neurological: Yes: Alert Labs: CBC, BMP 03/20/18 05:30 03/20/18 05:30 Problem List - Problems (1) Abdominal pain Code(s): R10.9 - UNSPECIFIED ABDOMINAL PAIN Qualifiers: Abdominal location: left lower quadrant Qualified Code(s): R10.32 - Left lower quadrant pain (2) Acute blood loss anemia Code(s): D62 - ACUTE POSTHEMORRHAGIC ANEMIA (3) Alcohol withdrawal Code(s): F10.239 - ALCOHOL DEPENDENCE WITH WITHDRAWAL, UNSPECIFIED Qualifiers: Complication of substance-induced condition: uncomplicated Qualified Code(s ): F10.230 - Alcohol dependence with withdrawal, uncomplicated (4) CHF (congestive heart failure) Code(s): I50.9 - HEART FAILURE, UNSPECIFIED Qualifiers: Heart failure chronicity: chronic (5) CKD (chronic kidney disease) stage 4, GFR 15-29 ml/min Code(s): N18.4 - CHRONIC KIDNEY DISEASE, STAGE 4 (SEVERE) (6) COPD (chronic obstructive pulmonary disease) Code(s): J44.9 - CHRONIC OBSTRUCTIVE PULMONARY DISEASE, UNSPECIFIED (7) Coffee ground emesis Code(s): K92.0 - HEMATEMESIS (8) Dizziness Code(s): R42 - DIZZINESS AND GIDDINESS (9) HTN (hypertension) Code(s): I10 - ESSENTIAL (PRIMARY) HYPERTENSION (10) Hyperkalemia Code(s): E87.5 - HYPERKALEMIA (11) Hyperlipidemia Code(s): E78.5 - HYPERLIPIDEMIA, UNSPECIFIED Qualifiers: Hyperlipidemia type: pure hypercholesterolemia Qualified Code(s): E78.00 - Pure hypercholesterolemia, unspecified; E78.0 - Pure hypercholesterolemia (12) Melena Code(s): K92.1 - MELENA (13) Alcohol abuse Code(s): F10.10 - ALCOHOL ABUSE, UNCOMPLICATED Assessment/Plan is a 57 year old male pmh of ETOH abuse,HTN, CKD-4, HLD, CHF, COPD, BPH, Lumbar disk herniation, admitted with history of coffee ground Emesis and melena. The patient has Advanced Chronic kidney disease, with some acute worsening of azotemia. Profound Hyperkalemia, due to absorption of k from lyse blood in the gut. This is further facilitated by the patient's advanced kidney disease. Severe blood loss anemia, superimposed on Anemia of CKD. Plan: Medical management of Hyperkalemia Monitor the Renal/ Electrolyte profile No indication for dialysis now. Transfusion PRN to maintain Hgb in stable range. Thank you. Wll follow with you. Nikia Alcocer MD
[2018-03-20] MEDS ORDERED: traMADol HCL 50 MG TABLET PO PRN ×2 (10:43→20:54)
[2018-03-20] MEDS ORDERED: chlordiazePOXIDE HCL 25 MG CAPSULE PO PRN ×3 (10:47→20:54)
--- NOTE | 2018-03-20 11:04 | PN ---
Teaching Attending Note Name of Resident: Sebas Culver ATTENDING PHYSICIAN STATEMENT I saw and evaluated the patient. I reviewed the resident's note and discussed the case with the resident. I agree with the resident's findings and plan as documented. SUBJECTIVE: Pt seen and examined in the ICU. s/p EGD showing duodenal ulcer s/p cautery. No BM overnight. States abdominal discomfort resolved. OBJECTIVE: Vital Signs Period Temp Pulse Resp BP Sys/Cannon Pulse Ox Last 24 Hr 98.2 F-98.9 F 85-98 18-22 135-160/95-108 98 Intake & Output 03/17/18 03/18/18 03/19/18 03/20/18 23:59 23:59 23:59 23:59 Intake Total 571 1174 Output Total 900 600 Balance -329 574 Weight 104.78 kg Gen: NAD in chair Heart: RRR Lung: decreased breath sounds at the bases Abd: soft, nontender Ext: no edema CBC, BMP 03/20/18 05:30 03/20/18 05:30 Active Medications Amlodipine Besylate (Norvasc -) 10 mg PO DAILY [facility] Last Admin: 03/20/18 09:53 Dose: 10 mg Carvedilol (Coreg -) 25 mg PO BID [facility] Last Admin: 03/20/18 09:53 Dose: 25 mg Chlordiazepoxide HCl (Librium -) 25 mg PO Q6H PRN PRN Reason: WITHDRAWAL(CONT SUBST) Chlorhexidine Gluconate (Hibiclens For Decolonization -) 1 applic TP HS [facility] Last Admin: 03/19/18 22:00 Dose: 1 applic Hydralazine HCl (Apresoline -) 25 mg PO BID [facility] Last Admin: 03/20/18 09:53 Dose: 25 mg Pantoprazole Sodium 160 mg/ (Dextrose) 290 mls @ 14.5 mls/hr IVPB Q20H [facility] Last Admin: 03/19/18 17:43 Dose: 14.5 mls/hr Mupirocin (Bactroban Ointment (For Decolonization) -) 1 applic NS BID [facility] Stop: 03/24/18 21:59 Last Admin: 03/20/18 09:55 Dose: 1 applic Sucralfate (Carafate Oral Suspension -) 1 gm PO QID [facility] Last Admin: 03/20/18 09:53 Dose: 1 gm Tamsulosin HCl (Flomax -) 0.4 mg PO HS [facility] Last Admin: 03/19/18 22:00 Dose: 0.4 mg Tramadol HCl (Ultram -) 50 mg PO Q8H PRN PRN Reason: PAIN LEVEL 6-10 ASSESSMENT AND PLAN: GI Bleed likely Upper Acute Blood Loss Anemia Acute on Chronic Renal Failure Lactic Acidosis resolved HTN BPH COPD Alcohol Dependence/Abuse - continue protonix - PO per GI - monitor for withdrawal symptoms - mechanical DVT prophylaxis - can monitor on floor
[2018-03-20] MEDS ORDERED: DEXTROSE 50%-WATER - 25 GM/50 ML VIAL IVPUSH ONE (11:50)
[2018-03-20] MEDS ORDERED: DEXTROSE 50%-WATER 25 GM/50 ML DISP.SYRIN ONE (11:53)
--- NOTE | 2018-03-20 11:58 | PN ---
Physical Exam: SUBJECTIVE: Patient seen and examined this am in icu. Sitting in chair comfortably. Oscar any cp or sob. OBJECTIVE: Vital Signs Period Temp Pulse Resp BP Sys/Cannon Pulse Ox Last 24 Hr 98.2 F-98.9 F 85-98 18-22 135-160/95-108 98 GENERAL: AAOx3 HEAD: Nc/AT EYES: EOMI ENT: MMM NECK: supple. LUNGS:Bs dec at bases HEART: RRR ABDOMEN: NT, No HSM, ND. Umbilical Hernia. EXTREMITIES: no CCE NEUROLOGICAL: No Neuro Deficits PSYCH: Normal mood, normal affect. SKIN: Warm, dry, normal turgor, no rashes or lesions noted Laboratory Results - last 24 hr 03/19/18 03/19/18 03/19/18 12:05 12:30 21:30 WBC RBC Hgb Hct MCV MCH MCHC RDW Plt Count MPV Absolute Neuts (auto) Total Counted Neutrophils % Neutrophils % (Manual) Lymphocytes % Lymphocytes % (Manual) Monocytes % Monocytes % (Manual) Eosinophils % Basophils % Nucleated RBC % Hypochromia Platelet Estimate Platelet Comment Polychromasia Anisocytosis Macrocytosis Sodium 141 Potassium 6.0 H Chloride 110 H Carbon Dioxide 22 Anion Gap 9 BUN 109 H* Creatinine 3.9 H Creat Clearance w eGFR 15.96 Random Glucose 154 H D Lactic Acid 1.1 Calcium 8.4 L Phosphorus Magnesium Total Bilirubin AST ALT Alkaline Phosphatase Total Protein Albumin Blood Type O POSITIVE 03/19/18 03/20/18 03/20/18 21:30 05:30 05:30 WBC 12.3 H 12.6 H RBC 3.08 L 2.68 L Hgb 9.8 L 8.6 L Hct 29.8 L 25.5 L MCV 96.6 H 95.2 MCH 31.9 32.0 MCHC 33.0 33.6 RDW 14.0 13.6 Plt Count 213 188 MPV 8.9 9.1 Absolute Neuts (auto) 11.3 Total Counted 100 Neutrophils % 91.7 H D Neutrophils % (Manual) 90.0 H Lymphocytes % 7.0 L D Lymphocytes % (Manual) 8.0 Monocytes % 1.1 L D Monocytes % (Manual) 2 L Eosinophils % 0.0 D Basophils % 0.2 Nucleated RBC % 0 Hypochromia 1+ Platelet Estimate Adequate Platelet Comment No clumping noted Polychromasia 1+ Anisocytosis 1+ Macrocytosis 1+ Sodium 142 Potassium 5.6 H Chloride 110 H Carbon Dioxide 21 Anion Gap 11 BUN 100 H Creatinine 4.0 H Creat Clearance w eGFR 15.44 Random Glucose 128 H Lactic Acid Calcium 8.5 Phosphorus 3.2 Magnesium 2.9 H Total Bilirubin 0.2 AST 11 L ALT 13 Alkaline Phosphatase 66 D Total Protein 5.9 L Albumin 2.5 L Blood Type Active Medications Generic Name Dose Route Start Last Admin Trade Name Freq PRN Reason Stop Dose Admin Amlodipine Besylate 10 mg 03/20/18 10:00 03/20/18 09:53 Norvasc - PO 10 mg DAILY WANDA Administration Carvedilol 25 mg 03/19/18 22:00 03/20/18 09:53 Coreg - PO 25 mg BID WANDA Administration Chlordiazepoxide HCl 25 mg 03/20/18 10:47 Librium - PO Q6H PRN WITHDRAWAL(CONT SUBST) Chlorhexidine Gluconate 1 applic 03/19/18 22:00 03/19/18 22:00 Hibiclens For Decolonization - TP 1 applic HS WANDA Administration Dextrose 25 gm 03/20/18 11:50 D50w (Vial) - IVPUSH 03/20/18 11:51 NOW ONE Hydralazine HCl 25 mg 03/19/18 22:00 03/20/18 09:53 Apresoline - PO 25 mg BID WAN[facility] Administration Pantoprazole Sodium 160 mg/ 290 mls @ 14.5 mls/hr 03/19/18 16:15 03/19/18 17: 43 Dextrose IVPB 14.5 mls/hr Q20H WANDA Administration Mupirocin 1 applic 03/19/18 22:00 03/20/18 09:55 Bactroban Ointment (For Decolonization) - NS 03/24/18 21:59 1 applic BID WANDA Administration Sucralfate 1 gm 03/19/18 18:00 03/20/18 09:53 Carafate Oral Suspension - PO 1 gm QID WANDA Administration Tamsulosin HCl 0.4 mg 03/19/18 22:00 03/19/18 22:00 Flomax - PO 0.4 mg HS WANDA Administration Tramadol HCl 50 mg 03/20/18 10:43 Ultram - PO Q8H PRN PAIN LEVEL 6-10 ASSESSMENT/PLAN: is a 57 year old gentleman with a past medical hisory of ETOH abuse, HTN, CKD-4, HLD, CHF, COPD, BPH, Lumbar disk herniation, who presented to [facility] c/o coffee ground emeses and dark, tarry stool that has began 4 days ago. Duodenal Ulcer 2/2 heavy alcohol consumption/ H/ Pylori -Protonic gtt 290 mls @ 14.5 mls/hr IVPB -Follow Lactic Acid Levels -Transfuse hg <8 -CBC Q12H H/H -S/P EGD w/ Dr Corral Alcohol Abuse/Withdrawel -Librium 25 mg po PRN Q6H -Folic Acid 1 mg/ Thiamine HCl 1,000 mls @ 125 mls/hr IVPB -Begin Librium Protocol -Dr Schuler on board HTN, HLD -Amlodipine Besylate 10 mg PO DAILY -Hydralazine HCl 50 mg PO BID Coreg 25 MG PO BID BPH -Tamsulosin HCl 0.4 mg PO HS FEN No Fluids Monitor electrolytes Full Liquid Diet DVT ppx: SCD's Visit type - Emergency Visit Emergency Visit: Yes ED Registration Date: 03/19/18 Care time: The patient presented to the Emergency Department on the above date and was hospitalized for further evaluation of their emergent condition. - New Patient This patient is new to me today: Yes Date on this admission: 03/20/18 - Critical Care Critical Care patient: Yes Total Critical Care Time (in minutes): 35 Critical Care Statement: The care of this patient involved high complexity decision making to prevent further life threatening deterioration of the patient 's condition and/or to evaluate & treat vital organ system(s) failure or risk of failure.
--- NOTE | 2018-03-20 12:17 | PN ---
Progress Note, Physician History of Present Illness: No events. No bms overnight. Pain-free. Comfortable. - Current Medication List Current Medications: Active Medications Amlodipine Besylate (Norvasc -) 10 mg PO DAILY [facility] Last Admin: 03/20/18 09:53 Dose: 10 mg Carvedilol (Coreg -) 25 mg PO BID [facility] Last Admin: 03/20/18 09:53 Dose: 25 mg Chlordiazepoxide HCl (Librium -) 25 mg PO Q6H PRN PRN Reason: WITHDRAWAL(CONT SUBST) Chlorhexidine Gluconate (Hibiclens For Decolonization -) 1 applic TP [facility] Last Admin: 03/19/18 22:00 Dose: 1 applic Hydralazine HCl (Apresoline -) 25 mg PO BID [facility] Last Admin: 03/20/18 09:53 Dose: 25 mg Pantoprazole Sodium 160 mg/ (Dextrose) 290 mls @ 14.5 mls/hr IVPB Q20H [facility] Last Admin: 03/19/18 17:43 Dose: 14.5 mls/hr Mupirocin (Bactroban Ointment (For Decolonization) -) 1 applic NS BID [facility] Stop: 03/24/18 21:59 Last Admin: 03/20/18 09:55 Dose: 1 applic Sucralfate (Carafate Oral Suspension -) 1 gm PO QID [facility] Last Admin: 03/20/18 09:53 Dose: 1 gm Tamsulosin HCl (Flomax -) 0.4 mg PO [facility] Last Admin: 03/19/18 22:00 Dose: 0.4 mg Tramadol HCl (Ultram -) 50 mg PO Q8H PRN PRN Reason: PAIN LEVEL 6-10 - Objective Vital Signs: Vital Signs Temperature 98.9 F 03/20/18 10:00 Pulse Rate 94 H 03/20/18 10:00 Respiratory Rate 20 03/20/18 10:00 Blood Pressure 146/103 03/20/18 10:00 O2 Sat by Pulse Oximetry (%) 98 03/19/18 13:24 Constitutional: Yes: Well Nourished, No Distress, Calm Eyes: Yes: Conjunctiva Clear HENT: Yes: Atraumatic Cardiovascular: Yes: Regular Rate and Rhythm Respiratory: Yes: Regular Gastrointestinal: Yes: Soft, Distention. No: Melena, Rectal Bleeding, Tenderness, Tenderness, Epigastrium, Tenderness, Rebound, Vomiting Labs: CBC, BMP 03/20/18 05:30 03/20/18 05:30 INR, PTT INR 1.00 (0.83-1.09) 03/19/18 09:20 Laboratory Last Values WBC 12.6 K/mm3 (4.0-10.0) H 03/20/18 05:30 RBC 2.68 M/mm3 (4.00-5.60) L 03/20/18 05:30 Hgb 8.6 GM/dL (11.7-16.9) L 03/20/18 05:30 Hct 25.5 % (35.4-49) L 03/20/18 05:30 MCV 95.2 fl (80-96) 03/20/18 05:30 MCH 32.0 pg (25.7-33.7) 03/20/18 05:30 MCHC 33.6 g/dl (32.0-35.9) 03/20/18 05:30 RDW 13.6 % (11.9-15.9) 03/20/18 05:30 Plt Count 188 K/MM3 (134-434) 03/20/18 05:30 MPV 9.1 fl (7.5-11.1) 03/20/18 05:30 Absolute Neuts (auto) 11.3 # 03/19/18 21:30 Total Counted 100 03/19/18 21:30 Neutrophils % 91.7 % (42.8-82.8) H D 03/19/18 21:30 Neutrophils % (Manual) 90.0 % (42.8-82.8) H 03/19/18 21:30 Lymphocytes % 7.0 % (8-40) L D 03/19/18 21:30 Lymphocytes % (Manual) 8.0 % (8-40) 03/19/18 21:30 Monocytes % 1.1 % (3.8-10.2) L D 03/19/18 21:30 Monocytes % (Manual) 2 % (3.8-10.2) L 03/19/18 21:30 Eosinophils % 0.0 % (0-4.5) D 03/19/18 21:30 Basophils % 0.2 % (0-2.0) 03/19/18 21:30 Nucleated RBC % 0 % (0-0) 03/19/18 21:30 Hypochromia 1+ 03/19/18 21:30 Platelet Estimate Adequate 03/19/18 21:30 Platelet Comment No clumping noted 03/19/18 21:30 Polychromasia 1+ 03/19/18 21:30 Anisocytosis 1+ 03/19/18 21:30 Macrocytosis 1+ 03/19/18 21:30 PT with INR 11.30 SEC (9.7-13.0) 03/19/18 09:20 INR 1.00 (0.83-1.09) 03/19/18 09:20 PTT (Actin FS) 25.1 SECONDS (25.2-36.5) L 03/19/18 09:20 Sodium 142 mmol/L (136-145) 03/20/18 05:30 Potassium 5.6 mmol/L (3.5-5.1) H 03/20/18 05:30 Chloride 110 mmol/L (98-107) H 03/20/18 05:30 Carbon Dioxide 21 mmol/L (21-32) 03/20/18 05:30 Anion Gap 11 (8-16) 03/20/18 05:30 BUN 100 mg/dL (7-18) H 03/20/18 05:30 Creatinine 4.0 mg/dL (0.7-1.3) H 03/20/18 05:30 Creat Clearance w eGFR 15.44 (>60) 03/20/18 05:30 Random Glucose 128 mg/dL (74-106) H 03/20/18 05:30 Lactic Acid 1.1 mmol/L (0.0-2.0) 03/19/18 12:30 Calcium 8.5 mg/dL (8.5-10.1) 03/20/18 05:30 Phosphorus 3.2 mg/dL (2.5-4.9) 03/20/18 05:30 Magnesium 2.9 mg/dL (1.8-2.4) H 03/20/18 05:30 Total Bilirubin 0.2 mg/dL (0.2-1.0) 03/20/18 05:30 AST 11 U/L (15-37) L 03/20/18 05:30 ALT 13 U/L (12-78) 03/20/18 05:30 Alkaline Phosphatase 66 U/L (45-117) D 03/20/18 05:30 Ammonia 31.73 umol/L (11-32) 03/19/18 09:20 Creatine Kinase 44 IU/L (39-308) 03/19/18 09:20 Troponin I < 0.02 ng/ml (0.00-0.05) 03/19/18 09:20 Total Protein 5.9 g/dl (6.4-8.2) L 03/20/18 05:30 Albumin 2.5 g/dl (3.4-5.0) L 03/20/18 05:30 Lipase 151 U/L (73-393) 03/19/18 09:20 Blood Type O POSITIVE 03/19/18 12:05 Antibody Screen Negative 03/19/18 09:20 Problem List - Problems (1) Acute blood loss anemia Code(s): D62 - ACUTE POSTHEMORRHAGIC ANEMIA (2) Duodenal ulcer with hemorrhage Code(s): K26.4 - CHRONIC OR UNSPECIFIED DUODENAL ULCER WITH HEMORRHAGE Assessment/Plan Continue current care, soft diet and follow biopsy results. R/o H. pylori infection.
[2018-03-20 12:19] LABS: BASO % 0.2 % (0-2.0); HEMATOCRIT 22.7 % (35.4-49); HEMOGLOBIN 7.7 GM/dL (11.7-16.9); LYMPH % 9.3 % (8-40); MCH 32.5 pg (25.7-33.7); MCHC 33.7 g/dl (32.0-35.9); MEAN CELL VOLUME 96.4 fl (80-96); MEAN PLT VOLUME 8.9 fl (7.5-11.1); MONO % 0.8 % (3.8-10.2); NEUT % 89.7 % (42.8-82.8); PLATELET COUNT 169 K/MM3 (134-434); RBC 2.35 M/mm3 (4.00-5.60); RDW 13.6 % (11.9-15.9); WHITE BLOOD COUNT 11.1 K/mm3 (4.0-10.0)
[2018-03-20 12:47] LABS: ANION GAP 10 (8-16); BLOOD UREA NITROGEN 96 mg/dL (7-18); CALCIUM 8.6 mg/dL (8.5-10.1); CHLORIDE 106 mmol/L (98-107); CO2 22 mmol/L (21-32); CREATININE 3.9 mg/dL (0.7-1.3); GLUCOSE,RANDOM 188 mg/dL (74-106); POTASSIUM 5.2 mmol/L (3.5-5.1); SODIUM 138 mmol/L (136-145)
[2018-03-20] MEDS: PANTOPRAZOLE SODIUM 160 MG in DEXTROSE 5%-WATER - 290 ML IVPB SCH (15:00)
--- NOTE | 2018-03-20 16:43 | CONSULT ---
Consult Detox [facility] Reason for Current Admission/Consult: h/o alcohol use - History History of Present Illness: Pt states he has been using alcohol most of his life. Was also using THC and cocaine unitl 2002 when he was diagnosed with cardiomyopathy when he stopped THC and cocaine but continued to use alcohol. Drinks about 1 pint of gin 5/7 days. Never had any seizures/DT's. Pt states he is at the present moment feeling cold, and feeling nervous and tremulous. - Alcohol/Substance Use Hx Alcohol Use: Yes (1 pint gin 5/7 days of the week, denies other illicit substance use) - Past Medical History Cardio/Vascular: Yes: CHF, HTN, Hyperlipdemia Pulmonary: Yes: COPD Gastrointestinal: Yes: Diverticulitis, Other (umbillical hernia) Renal/: Yes: Renal Failure (stage 4), BPH Psych: Yes: Addictions Musculoskeletal: Yes: Chronic low back pain - Past Surgical History Past Surgical History: Yes: None - Significant Medical Findings: pt is here for a bleeding duodenal ulcer for which he is being retreated with cuaterization of ulcer and meds and blood transfusion Laboratory Tests 03/19/18 03/19/18 03/19/18 09:20 09:20 09:20 WBC 9.4 RBC 3.37 L Hgb 11.0 L Hct 32.1 L MCV 95.3 MCH 32.7 MCHC 34.3 RDW 13.6 Plt Count 234 MPV 9.0 Absolute Neuts (auto) 6.8 Total Counted Neutrophils % 71.5 Neutrophils % (Manual) Lymphocytes % 18.4 Lymphocytes % (Manual) Monocytes % 9.2 Monocytes % (Manual) Eosinophils % 0.4 Basophils % 0.5 Nucleated RBC % 0 Hypochromia Platelet Estimate Platelet Comment Polychromasia Anisocytosis Macrocytosis PT with INR 11.30 INR 1.00 PTT (Actin FS) 25.1 L Sodium Potassium Chloride Carbon Dioxide Anion Gap BUN Creatinine Creat Clearance w eGFR Random Glucose Lactic Acid Calcium Phosphorus Magnesium Total Bilirubin AST ALT Alkaline Phosphatase Ammonia Creatine Kinase 44 Troponin I < 0.02 Total Protein Albumin Lipase Blood Type Antibody Screen Crossmatch 03/19/18 03/19/18 03/19/18 09:20 09:20 09:20 WBC RBC Hgb Hct MCV MCH MCHC RDW Plt Count MPV Absolute Neuts (auto) Total Counted Neutrophils % Neutrophils % (Manual) Lymphocytes % Lymphocytes % (Manual) Monocytes % Monocytes % (Manual) Eosinophils % Basophils % Nucleated RBC % Hypochromia Platelet Estimate Platelet Comment Polychromasia Anisocytosis Macrocytosis PT with INR INR PTT (Actin FS) Sodium 143 Potassium 5.2 H Chloride 106 Carbon Dioxide 23 Anion Gap 14 BUN 97 H Creatinine 4.1 H Creat Clearance w eGFR 15.06 Random Glucose 112 H Lactic Acid 2.6 H* Calcium 8.9 Phosphorus Magnesium Total Bilirubin 0.4 AST 13 L ALT 15 Alkaline Phosphatase 80 Ammonia 31.73 Creatine Kinase Troponin I Total Protein 6.3 L Albumin 2.8 L Lipase 151 Blood Type Antibody Screen Crossmatch 03/19/18 03/19/18 03/19/18 09:20 12:05 12:30 WBC RBC Hgb Hct MCV MCH MCHC RDW Plt Count MPV Absolute Neuts (auto) Total Counted Neutrophils % Neutrophils % (Manual) Lymphocytes % Lymphocytes % (Manual) Monocytes % Monocytes % (Manual) Eosinophils % Basophils % Nucleated RBC % Hypochromia Platelet Estimate Platelet Comment Polychromasia Anisocytosis Macrocytosis PT with INR INR PTT (Actin FS) Sodium Potassium Chloride Carbon Dioxide Anion Gap BUN Creatinine Creat Clearance w eGFR Random Glucose Lactic Acid 1.1 Calcium Phosphorus Magnesium Total Bilirubin AST ALT Alkaline Phosphatase Ammonia Creatine Kinase Troponin I Total Protein Albumin Lipase Blood Type O POSITIVE O POSITIVE Antibody Screen Negative Crossmatch See Detail See Detail 03/19/18 03/19/18 03/20/18 21:30 21:30 05:30 WBC 12.3 H RBC 3.08 L Hgb 9.8 L Hct 29.8 L MCV 96.6 H MCH 31.9 MCHC 33.0 RDW 14.0 Plt Count 213 MPV 8.9 Absolute Neuts (auto) 11.3 Total Counted 100 Neutrophils % 91.7 H D Neutrophils % (Manual) 90.0 H Lymphocytes % 7.0 L D Lymphocytes % (Manual) 8.0 Monocytes % 1.1 L D Monocytes % (Manual) 2 L Eosinophils % 0.0 D Basophils % 0.2 Nucleated RBC % 0 Hypochromia 1+ Platelet Estimate Adequate Platelet Comment No clumping noted Polychromasia 1+ Anisocytosis 1+ Macrocytosis 1+ PT with INR INR PTT (Actin FS) Sodium 141 142 Potassium 6.0 H 5.6 H Chloride 110 H 110 H Carbon Dioxide 22 21 Anion Gap 9 11 BUN 109 H* 100 H Creatinine 3.9 H 4.0 H Creat Clearance w eGFR 15.96 15.44 Random Glucose 154 H D 128 H Lactic Acid Calcium 8.4 L 8.5 Phosphorus 3.2 Magnesium 2.9 H Total Bilirubin 0.2 AST 11 L ALT 13 Alkaline Phosphatase 66 D Ammonia Creatine Kinase Troponin I Total Protein 5.9 L Albumin 2.5 L Lipase Blood Type Antibody Screen Crossmatch 03/20/18 03/20/18 03/20/18 05:30 12:10 12:10 WBC 12.6 H 11.1 H RBC 2.68 L 2.35 L Hgb 8.6 L 7.7 L Hct 25.5 L 22.7 L MCV 95.2 96.4 H MCH 32.0 32.5 MCHC 33.6 33.7 RDW 13.6 13.6 Plt Count 188 169 MPV 9.1 8.9 Absolute Neuts (auto) 9.9 Total Counted Neutrophils % 89.7 H Neutrophils % (Manual) Lymphocytes % 9.3 D Lymphocytes % (Manual) Monocytes % 0.8 L Monocytes % (Manual) Eosinophils % 0.0 Basophils % 0.2 Nucleated RBC % 0 Hypochromia Platelet Estimate Platelet Comment Polychromasia Anisocytosis Macrocytosis PT with INR INR PTT (Actin FS) Sodium 138 Potassium 5.2 H Chloride 106 Carbon Dioxide 22 Anion Gap 10 BUN 96 H Creatinine 3.9 H Creat Clearance w eGFR 15.90 Random Glucose 188 H D Lactic Acid Calcium 8.6 Phosphorus Magnesium Total Bilirubin AST ALT Alkaline Phosphatase Ammonia Creatine Kinase Troponin I Total Protein Albumin Lipase Blood Type Antibody Screen Crossmatch CIWA Score - CIWA Score Nausea/Vomitin-Mild Nausea/No Vomiting Muscle Tremors: 3 Anxiety: 2 Agitation: 1-Slight > Activity Paroxysmal Sweats: 2 Orientation: 0-Oriented Tacttile Disturbances: 0-None Auditory Disturbances: 0-None Visual Disturbances: 0-None Headache: 0-None Present CIWA-Ar Total Score: 9 Assessment Plan - Diagnosis (1) Alcohol abuse Status: Acute (2) Alcohol withdrawal Status: Acute - Plan Plan: Pt seems to be in alcohol withdrawal now- will start librium detox protocol, Vit B1 and B12. Pt given information re outpt treatment possibilities: AA meetings, books, medications - Medication Detox Regimen/Protocol: Librium
[2018-03-20] MEDS: chlordiazePOXIDE HCL 25 MG CAPSULE PO SCH ×2 (17:23→22:00)
[2018-03-20] MEDS: FOLIC ACID INJECTION - 1 MG, THIAMINE HCL 100 MG, MULTIVIT INJECTION ADULT 10 ML in SOD... IVPB ONE (18:29)
[2018-03-20 21:54] LABS: HEMATOCRIT 28.9 % (35.4-49); HEMOGLOBIN 9.8 GM/dL (11.7-16.9); MCHC 33.9 g/dl (32.0-35.9); MEAN CELL VOLUME 94.3 fl (80-96); MEAN PLT VOLUME 9.3 fl (7.5-11.1); PLATELET COUNT 217 K/MM3 (134-434); RBC 3.06 M/mm3 (4.00-5.60); RDW 14.2 % (11.9-15.9); WHITE BLOOD COUNT 16.6 K/mm3 (4.0-10.0)
[2018-03-20] MEDS: TAMSULOSIN HCL 0.4 MG CAP.ER.24H (FP) PO SCH (21:59)
[2018-03-20] MEDS: THIAMINE HCL 100 MG TABLET (FP) PO SCH (21:59)
[2018-03-20] MEDS: hydrALAZINE HCL 25 MG TABLET (FP) PO SCH (21:59)
[2018-03-20] MEDS: PANTOPRAZOLE 40 MG TABLET (FP) PO SCH (21:59)
[2018-03-21] MEDS: chlordiazePOXIDE HCL 25 MG CAPSULE PO SCH ×4 (05:25→22:18)
[2018-03-21 08:06] LABS: ALBUMIN 2.4 g/dl (3.4-5.0); ANION GAP 7 (8-16); BASO % 0.2 % (0-2.0); BLOOD UREA NITROGEN 81 mg/dL (7-18); CALCIUM 8.6 mg/dL (8.5-10.1); CHLORIDE 109 mmol/L (98-107); CO2 26 mmol/L (21-32); EOS % 0.3 % (0-4.5); GLUCOSE,RANDOM 89 mg/dL (74-106); HEMATOCRIT 23.2 % (35.4-49); HEMOGLOBIN 8.1 GM/dL (11.7-16.9); LYMPH % 18.6 % (8-40); MAGNESIUM 2.6 mg/dL (1.8-2.4); MCH 32.6 pg (25.7-33.7); MCHC 34.7 g/dl (32.0-35.9); MEAN CELL VOLUME 93.8 fl (80-96); MEAN PLT VOLUME 8.9 fl (7.5-11.1); MONO % 5.9 % (3.8-10.2); PLATELET COUNT 164 K/MM3 (134-434); POTASSIUM 4.8 mmol/L (3.5-5.1); RBC 2.48 M/mm3 (4.00-5.60); SODIUM 142 mmol/L (136-145); WHITE BLOOD COUNT 11.3 K/mm3 (4.0-10.0)
[2018-03-21 08:11] LABS: ALK PHOS 55 U/L (45-117); BILIRUBIN,TOTAL 0.3 mg/dL (0.2-1.0); CREATININE 3.8 mg/dL (0.7-1.3); PHOSPHOROUS 3.8 mg/dL (2.5-4.9); SGOT/AST 13 U/L (15-37); SGPT/ALT 11 U/L (12-78); TOT PROT 5.2 g/dl (6.4-8.2)
[2018-03-21] MEDS: amLODIPine BESYLATE 10 MG TABLET (FP) PO SCH ×2 (09:12→09:39)
[2018-03-21] MEDS: hydrALAZINE HCL 25 MG TABLET (FP) PO SCH ×3 (09:12→22:16)
[2018-03-21] MEDS: CARVEDILOL 25 MG TABLET (FP) PO SCH ×3 (09:12→22:16)
[2018-03-21] MEDS: PANTOPRAZOLE 40 MG TABLET (FP) PO SCH ×2 (09:12→22:16)
[2018-03-21] MEDS: CYANOCOBALAMIN 1,000 MCG TABLET (FP) PO SCH (09:12)
[2018-03-21] MEDS: SUCRALFATE 1 GM/10 ML UNIT DOSE CUPS PO SCH ×4 (09:13→22:17)
--- NOTE | 2018-03-21 10:06 | PN ---
Progress Note, Physician History of Present Illness: Feeling OK, but has not had bowel movement in a few days, so feeling bloated. Notes some lower abdominal pain due to the bloating. Otherwise, tolerating PO foods. Seen by behavioral medicine and started on librium protocol for alcohol withdrawal. - Current Medication List Current Medications: Active Medications Amlodipine Besylate (Norvasc -) 10 mg PO DAILY [facility] Last Admin: 03/21/18 09:39 Dose: Not Given Carvedilol (Coreg -) 25 mg PO BID [facility] Last Admin: 03/21/18 09:38 Dose: Not Given Chlordiazepoxide HCl (Librium -) 50 mg PO [id number] [facility] Stop: 03/21/18 11:01 Last Admin: 03/21/18 05:25 Dose: 50 mg Chlordiazepoxide HCl (Librium -) 25 mg PO [id number] [facility] Stop: 03/22/18 11:01 Chlordiazepoxide HCl (Librium -) 15 mg PO [id number] [facility] Stop: 03/23/18 11:01 Chlordiazepoxide HCl (Librium -) 25 mg PO Q4H PRN PRN Reason: WITHDRAWAL(CONT SUBST) Stop: 03/23/18 16:43 Chlordiazepoxide HCl (Librium -) 10 mg PO [id number] [facility] Stop: 03/24/18 11:01 Chlordiazepoxide HCl (Librium -) 25 mg PO Q6H PRN PRN Reason: WITHDRAWAL(CONT SUBST) Cyanocobalamin (Vitamin B12 -) 1,000 mcg PO DAILY [facility] Last Admin: 03/21/18 09:12 Dose: 1,000 mcg Hydralazine HCl (Apresoline -) 25 mg PO BID [facility] Last Admin: 03/21/18 09:38 Dose: Not Given Sodium Chloride (Normal Saline -) 1,000 mls @ 125 mls/hr IV ASDIR [facility] Stop: 03/21/18 21:59 Pantoprazole Sodium (Protonix -) 40 mg PO BID [facility] Last Admin: 03/21/18 09:12 Dose: 40 mg Sucralfate (Carafate Oral Suspension -) 1 gm PO QID [facility] Last Admin: 03/21/18 09:13 Dose: 1 gm Tamsulosin HCl (Flomax -) 0.4 mg PO HS [facility] Last Admin: 03/20/18 21:59 Dose: 0.4 mg Thiamine HCl (Vitamin B1 -) 100 mg PO HS [facility] Last Admin: 03/20/18 21:59 Dose: 100 mg Tramadol HCl (Ultram -) 50 mg PO Q8H PRN PRN Reason: PAIN LEVEL 6-10 - Objective Vital Signs: Vital Signs Temperature 98 F 03/21/18 09:00 Pulse Rate 78 03/21/18 09:00 Respiratory Rate 18 03/21/18 09:00 Blood Pressure 80/55 03/21/18 09:00 O2 Sat by Pulse Oximetry (%) 98 03/19/18 13:24 Constitutional: Yes: No Distress, Calm Neck: Yes: Supple, Trachea Midline Cardiovascular: Yes: Regular Rate and Rhythm, S1, S2. No: Murmur Respiratory: Yes: Regular, CTA Bilaterally. No: Rales, Rhonchi, Wheezes Gastrointestinal: Yes: Normal Bowel Sounds, Soft, Distention Edema: No Neurological: Yes: Alert, Oriented Labs: CBC, BMP 03/21/18 06:00 03/21/18 06:00 INR, PTT INR 1.00 (0.83-1.09) 03/19/18 09:20 Assessment/Plan Current Active Problems Abdominal pain (Acute) Acute blood loss anemia (Acute) Alcohol withdrawal (Acute) CHF (congestive heart failure) (Acute) CKD (chronic kidney disease) stage 4, GFR 15-29 ml/min (Acute) COPD (chronic obstructive pulmonary disease) (Acute) Coffee ground emesis (Acute) Dizziness (Acute) Duodenal ulcer with hemorrhage (Acute) HTN (hypertension) (Acute) Hyperkalemia (Acute) Hyperlipidemia (Acute) Lightheadedness (Acute) Melena (Acute) Tobacco dependence (Acute) Alcohol abuse (Chronic) -after examining patient called by nurse that BP low (80's systolic) and patient feeling dizzy. BP meds held. Will start on IVF and observe. Patient recently started on librium. -recheck CBC later today
[2018-03-21] MEDS: SODIUM CHLORIDE 1,000 ML IV SCH ×3 (10:16→18:29)
--- NOTE | 2018-03-21 11:27 | PN ---
Progress Note, Physician Chief Complaint: The patient seen in his room. Discomfort from abdominal bloating. Has not moved bowels in a few days. No chest pains. Maintains good urine output. - Current Medication List Current Medications: Active Medications Amlodipine Besylate (Norvasc -) 10 mg PO DAILY [facility] Last Admin: 03/21/18 09:39 Dose: Not Given Carvedilol (Coreg -) 25 mg PO BID [facility] Last Admin: 03/21/18 09:38 Dose: Not Given Chlordiazepoxide HCl (Librium -) 25 mg PO [id number] [facility] Stop: 03/22/18 11:01 Chlordiazepoxide HCl (Librium -) 15 mg PO [id number] [facility] Stop: 03/23/18 11:01 Chlordiazepoxide HCl (Librium -) 25 mg PO Q4H PRN PRN Reason: WITHDRAWAL(CONT SUBST) Stop: 03/23/18 16:43 Chlordiazepoxide HCl (Librium -) 10 mg PO [id number] [facility] Stop: 03/24/18 11:01 Chlordiazepoxide HCl (Librium -) 25 mg PO Q6H PRN PRN Reason: WITHDRAWAL(CONT SUBST) Cyanocobalamin (Vitamin B12 -) 1,000 mcg PO DAILY [facility] Last Admin: 03/21/18 09:12 Dose: 1,000 mcg Hydralazine HCl (Apresoline -) 25 mg PO BID [facility] Last Admin: 03/21/18 09:38 Dose: Not Given Sodium Chloride (Normal Saline -) 1,000 mls @ 125 mls/hr IV ASDIR [facility] Stop: 03/21/18 21:59 Last Admin: 03/21/18 10:16 Dose: 125 mls/hr Pantoprazole Sodium (Protonix -) 40 mg PO BID [facility] Last Admin: 03/21/18 09:12 Dose: 40 mg Sucralfate (Carafate Oral Suspension -) 1 gm PO QID [facility] Last Admin: 03/21/18 09:13 Dose: 1 gm Tamsulosin HCl (Flomax -) 0.4 mg PO HS [facility] Last Admin: 03/20/18 21:59 Dose: 0.4 mg Thiamine HCl (Vitamin B1 -) 100 mg PO HS [facility] Last Admin: 03/20/18 21:59 Dose: 100 mg Tramadol HCl (Ultram -) 50 mg PO Q8H PRN PRN Reason: PAIN LEVEL 6-10 - Objective Vital Signs: Vital Signs Temperature 98 F 03/21/18 09:00 Pulse Rate 78 03/21/18 09:00 Respiratory Rate 18 03/21/18 09:00 Blood Pressure 80/55 03/21/18 09:00 O2 Sat by Pulse Oximetry (%) 98 03/19/18 13:24 Constitutional: Yes: Well Nourished, Anxious, Mild Distress Eyes: Yes: Conjunctiva Clear HENT: Yes: Normocephalic Neck: Yes: Trachea Midline Cardiovascular: Yes: Regular Rate and Rhythm, S1, S2 Respiratory: Yes: CTA Bilaterally, Diminished Gastrointestinal: Yes: Normal Bowel Sounds Genitourinary: No: Bladder Distention, CVA Tenderness - Left, CVA Tenderness - Right, Hematuria, Incontinence Musculoskeletal: Yes: Back Pain. No: Joint Stiffness Edema: No Neurological: Yes: Alert, Oriented Labs: CBC, BMP 03/21/18 06:00 03/21/18 06:00 INR, PTT INR 1.00 (0.83-1.09) 03/19/18 09:20 Problem List - Problems (1) Abdominal pain Code(s): R10.9 - UNSPECIFIED ABDOMINAL PAIN Qualifiers: Abdominal location: left lower quadrant Qualified Code(s): R10.32 - Left lower quadrant pain (2) Acute blood loss anemia Code(s): D62 - ACUTE POSTHEMORRHAGIC ANEMIA (3) Alcohol withdrawal Code(s): F10.239 - ALCOHOL DEPENDENCE WITH WITHDRAWAL, UNSPECIFIED Qualifiers: Complication of substance-induced condition: uncomplicated Qualified Code(s ): F10.230 - Alcohol dependence with withdrawal, uncomplicated (4) CHF (congestive heart failure) Code(s): I50.9 - HEART FAILURE, UNSPECIFIED Qualifiers: Heart failure chronicity: chronic (5) CKD (chronic kidney disease) stage 4, GFR 15-29 ml/min Code(s): N18.4 - CHRONIC KIDNEY DISEASE, STAGE 4 (SEVERE) (6) COPD (chronic obstructive pulmonary disease) Code(s): J44.9 - CHRONIC OBSTRUCTIVE PULMONARY DISEASE, UNSPECIFIED (7) Coffee ground emesis Code(s): K92.0 - HEMATEMESIS (8) Dizziness Code(s): R42 - DIZZINESS AND GIDDINESS (9) HTN (hypertension) Code(s): I10 - ESSENTIAL (PRIMARY) HYPERTENSION (10) Hyperkalemia Code(s): E87.5 - HYPERKALEMIA (11) Hyperlipidemia Code(s): E78.5 - HYPERLIPIDEMIA, UNSPECIFIED Qualifiers: Hyperlipidemia type: pure hypercholesterolemia Qualified Code(s): E78.00 - Pure hypercholesterolemia, unspecified; E78.0 - Pure hypercholesterolemia (12) Melena Code(s): K92.1 - MELENA (13) Alcohol abuse Code(s): F10.10 - ALCOHOL ABUSE, UNCOMPLICATED Assessment/Plan is a 57 year old male pmh of ETOH abuse,HTN, CKD-4, HLD, CHF, COPD, BPH, Lumbar disk herniation, admitted with history of coffee ground Emesis and melena. The patient has Advanced Chronic kidney disease, with some acute worsening of azotemia. Profound Hyperkalemia, due to absorption of K from lyse blood in the gut. Corrected now. The serum K is normal now. Severe blood loss anemia, superimposed on Anemia of CKD. Last Hg 8.1 gm. Constipation and abd distension... possibly due to lack of mobility. Plan: Monitor the Renal/ Electrolyte profile Transfuse PRN to maintain Hgb in stable range. No objection from renal perspective to the use of stool softners or mild laxatives like Miralax. Thank you. Wll follow with you. Nikia Alcocer MD
[2018-03-21 16:47] LABS: HEMATOCRIT 26.2 % (35.4-49); MCH 32.6 pg (25.7-33.7); MCHC 34.2 g/dl (32.0-35.9); MEAN CELL VOLUME 95.3 fl (80-96); MEAN PLT VOLUME 9.2 fl (7.5-11.1); PLATELET COUNT 191 K/MM3 (134-434); RBC 2.75 M/mm3 (4.00-5.60); RDW 14.4 % (11.9-15.9); WHITE BLOOD COUNT 12.2 K/mm3 (4.0-10.0)
[2018-03-21] MEDS: THIAMINE HCL 100 MG TABLET (FP) PO SCH (22:16)
[2018-03-21] MEDS: TAMSULOSIN HCL 0.4 MG CAP.ER.24H (FP) PO SCH (22:17)
[2018-03-22] MEDS: chlordiazePOXIDE HCL 25 MG CAPSULE PO SCH ×2 (06:44→13:03)
[2018-03-22 06:56] LABS: BASO % 0.4 % (0-2.0); EOS % 1.8 % (0-4.5); HEMATOCRIT 21.5 % (35.4-49); HEMOGLOBIN 7.4 GM/dL (11.7-16.9); LYMPH % 33.6 % (8-40); MCH 33.1 pg (25.7-33.7); MCHC 34.6 g/dl (32.0-35.9); MEAN CELL VOLUME 95.5 fl (80-96); MEAN PLT VOLUME 8.8 fl (7.5-11.1); MONO % 6.9 % (3.8-10.2); NEUT % 57.3 % (42.8-82.8); PLATELET COUNT 144 K/MM3 (134-434); RBC 2.25 M/mm3 (4.00-5.60); RDW 14.1 % (11.9-15.9); WHITE BLOOD COUNT 8.6 K/mm3 (4.0-10.0)
[2018-03-22 07:42] LABS: ALBUMIN 2.3 g/dl (3.4-5.0); ANION GAP 8 (8-16); BLOOD UREA NITROGEN 70 mg/dL (7-18); CALCIUM 7.9 mg/dL (8.5-10.1); CHLORIDE 114 mmol/L (98-107); CO2 24 mmol/L (21-32); GLUCOSE,RANDOM 84 mg/dL (74-106); POTASSIUM 4.1 mmol/L (3.5-5.1); SGOT/AST 12 U/L (15-37); SODIUM 146 mmol/L (136-145)
[2018-03-22 07:44] LABS: ALK PHOS 70 U/L (45-117); BILIRUBIN,TOTAL 0.1 mg/dL (0.2-1.0); CREATININE 3.9 mg/dL (0.7-1.3); SGPT/ALT 11 U/L (12-78); TOT PROT 5.1 g/dl (6.4-8.2)
[2018-03-22] MEDS: PANTOPRAZOLE 40 MG TABLET (FP) PO SCH ×2 (10:04→21:30)
[2018-03-22] MEDS: CYANOCOBALAMIN 1,000 MCG TABLET (FP) PO SCH (10:04)
[2018-03-22] MEDS: SUCRALFATE 1 GM/10 ML UNIT DOSE CUPS PO SCH ×4 (10:04→21:29)
--- NOTE | 2018-03-22 10:12 | PN ---
Progress Note, Physician Chief Complaint: The patient seen in his room. Feeling slightly better. Had a BM this morning. Maintains good urine output. No bleeding. Tendency for Hypotension. Possibly due to the hypovolemia. BP meds on hold. - Current Medication List Current Medications: Active Medications Amlodipine Besylate (Norvasc -) 10 mg PO DAILY [facility] Last Admin: 03/21/18 09:39 Dose: Not Given Carvedilol (Coreg -) 25 mg PO BID [facility] Last Admin: 03/21/18 22:16 Dose: Not Given Chlordiazepoxide HCl (Librium -) 25 mg PO [id number] [facility] Stop: 03/22/18 11:01 Last Admin: 03/22/18 06:44 Dose: 25 mg Chlordiazepoxide HCl (Librium -) 15 mg PO [id number] [facility] Stop: 03/23/18 11:01 Chlordiazepoxide HCl (Librium -) 25 mg PO Q4H PRN PRN Reason: WITHDRAWAL(CONT SUBST) Stop: 03/23/18 16:43 Chlordiazepoxide HCl (Librium -) 10 mg PO [id number] [facility] Stop: 03/24/18 11:01 Chlordiazepoxide HCl (Librium -) 25 mg PO Q6H PRN PRN Reason: WITHDRAWAL(CONT SUBST) Cyanocobalamin (Vitamin B12 -) 1,000 mcg PO DAILY [facility] Last Admin: 03/22/18 10:04 Dose: 1,000 mcg Hydralazine HCl (Apresoline -) 25 mg PO BID [facility] Last Admin: 03/21/18 22:16 Dose: Not Given Pantoprazole Sodium (Protonix -) 40 mg PO BID [facility] Last Admin: 03/22/18 10:04 Dose: 40 mg Sucralfate (Carafate Oral Suspension -) 1 gm PO QID [facility] Last Admin: 03/22/18 10:04 Dose: 1 gm Tamsulosin HCl (Flomax -) 0.4 mg PO HS [facility] Last Admin: 03/21/18 22:17 Dose: 0.4 mg Thiamine HCl (Vitamin B1 -) 100 mg PO HS [facility] Last Admin: 03/21/18 22:16 Dose: 100 mg Tramadol HCl (Ultram -) 50 mg PO Q8H PRN PRN Reason: PAIN LEVEL 6-10 - Objective Vital Signs: Vital Signs Temperature 98.1 F 03/22/18 05:52 Pulse Rate 72 03/22/18 05:52 Respiratory Rate 20 03/22/18 05:52 Blood Pressure 126/66 03/22/18 05:52 O2 Sat by Pulse Oximetry (%) 98 03/19/18 13:24 Constitutional: Yes: No Distress, Pallor Eyes: Yes: Conjunctiva Clear HENT: Yes: Normocephalic Neck: Yes: Trachea Midline Cardiovascular: Yes: S1, S2 Respiratory: Yes: CTA Bilaterally, Diminished Gastrointestinal: Yes: Normal Bowel Sounds, Soft, Abdomen, Obese Genitourinary: No: Bladder Distention, CVA Tenderness - Left, CVA Tenderness - Right, Hematuria Neurological: Yes: Alert, Oriented Labs: CBC, BMP 03/22/18 06:20 03/22/18 06:20 INR, PTT INR 1.00 (0.83-1.09) 03/19/18 09:20 Problem List - Problems (1) Abdominal pain Code(s): R10.9 - UNSPECIFIED ABDOMINAL PAIN Qualifiers: Abdominal location: left lower quadrant Qualified Code(s): R10.32 - Left lower quadrant pain (2) Acute blood loss anemia Code(s): D62 - ACUTE POSTHEMORRHAGIC ANEMIA (3) Alcohol withdrawal Code(s): F10.239 - ALCOHOL DEPENDENCE WITH WITHDRAWAL, UNSPECIFIED Qualifiers: Complication of substance-induced condition: uncomplicated Qualified Code(s ): F10.230 - Alcohol dependence with withdrawal, uncomplicated (4) CHF (congestive heart failure) Code(s): I50.9 - HEART FAILURE, UNSPECIFIED Qualifiers: Heart failure chronicity: chronic (5) CKD (chronic kidney disease) stage 4, GFR 15-29 ml/min Code(s): N18.4 - CHRONIC KIDNEY DISEASE, STAGE 4 (SEVERE) (6) COPD (chronic obstructive pulmonary disease) Code(s): J44.9 - CHRONIC OBSTRUCTIVE PULMONARY DISEASE, UNSPECIFIED (7) Coffee ground emesis Code(s): K92.0 - HEMATEMESIS (8) Dizziness Code(s): R42 - DIZZINESS AND GIDDINESS (9) HTN (hypertension) Code(s): I10 - ESSENTIAL (PRIMARY) HYPERTENSION (10) Hyperkalemia Code(s): E87.5 - HYPERKALEMIA (11) Hyperlipidemia Code(s): E78.5 - HYPERLIPIDEMIA, UNSPECIFIED Qualifiers: Hyperlipidemia type: pure hypercholesterolemia Qualified Code(s): E78.00 - Pure hypercholesterolemia, unspecified; E78.0 - Pure hypercholesterolemia (12) Melena Code(s): K92.1 - MELENA (13) Alcohol abuse Code(s): F10.10 - ALCOHOL ABUSE, UNCOMPLICATED Assessment/Plan is a 57 year old male pmh of ETOH abuse,HTN, CKD-4, HLD, CHF, COPD, BPH, Lumbar disk herniation, admitted with history of coffee ground emesis and melena. The patient has Advanced Chronic kidney disease, with some acute worsening of azotemia. S/P Profound Hyperkalemia, due to absorption of K from lyse blood in the gut. Corrected now. The serum K is normal now. Severe blood loss anemia, superimposed on Anemia of CKD. Last Hg 7.4 gm. Plan: Monitor the Renal/ Electrolyte profile ? Transfuse PRBC Diet as ordered. Will require outpatient renal follow up. Thank you. Wll follow with you. Nikia Alcocer MD
[2018-03-22] MEDS: hydrALAZINE HCL 25 MG TABLET (FP) PO SCH ×2 (10:13→21:30)
[2018-03-22] MEDS: amLODIPine BESYLATE 10 MG TABLET (FP) PO SCH (10:13)
[2018-03-22] MEDS: CARVEDILOL 25 MG TABLET (FP) PO SCH ×2 (10:13→21:30)
--- NOTE | 2018-03-22 10:24 | PN ---
Progress Note, Physician History of Present Illness: Patient feeling sleepy today, but easily arousable. Notes some soreness in upper abdomen. Has small bowel movement this morning. - Current Medication List Current Medications: Active Medications Amlodipine Besylate (Norvasc -) 10 mg PO DAILY [facility] Last Admin: 03/22/18 10:13 Dose: 10 mg Carvedilol (Coreg -) 25 mg PO BID [facility] Last Admin: 03/22/18 10:13 Dose: 25 mg Chlordiazepoxide HCl (Librium -) 25 mg PO [id number] [facility] Stop: 03/22/18 11:01 Last Admin: 03/22/18 06:44 Dose: 25 mg Chlordiazepoxide HCl (Librium -) 15 mg PO [id number] [facility] Stop: 03/23/18 11:01 Chlordiazepoxide HCl (Librium -) 25 mg PO Q4H PRN PRN Reason: WITHDRAWAL(CONT SUBST) Stop: 03/23/18 16:43 Chlordiazepoxide HCl (Librium -) 10 mg PO [id number] [facility] Stop: 03/24/18 11:01 Chlordiazepoxide HCl (Librium -) 25 mg PO Q6H PRN PRN Reason: WITHDRAWAL(CONT SUBST) Cyanocobalamin (Vitamin B12 -) 1,000 mcg PO DAILY [facility] Last Admin: 03/22/18 10:04 Dose: 1,000 mcg Hydralazine HCl (Apresoline -) 25 mg PO BID [facility] Last Admin: 03/22/18 10:13 Dose: 25 mg Pantoprazole Sodium (Protonix -) 40 mg PO BID [facility] Last Admin: 03/22/18 10:04 Dose: 40 mg Sucralfate (Carafate Oral Suspension -) 1 gm PO QID [facility] Last Admin: 03/22/18 10:04 Dose: 1 gm Tamsulosin HCl (Flomax -) 0.4 mg PO HS [facility] Last Admin: 03/21/18 22:17 Dose: 0.4 mg Thiamine HCl (Vitamin B1 -) 100 mg PO HS [facility] Last Admin: 03/21/18 22:16 Dose: 100 mg Tramadol HCl (Ultram -) 50 mg PO Q8H PRN PRN Reason: PAIN LEVEL 6-10 - Objective Vital Signs: Vital Signs Temperature 98 F 03/22/18 10:13 Pulse Rate 72 03/22/18 10:13 Respiratory Rate 03/22/18 10:13 Blood Pressure 120/72 03/22/18 10:13 O2 Sat by Pulse Oximetry (%) 98 03/19/18 13:24 Constitutional: Yes: No Distress, Calm Cardiovascular: Yes: Regular Rate and Rhythm, S1, S2. No: Murmur Respiratory: Yes: Regular, CTA Bilaterally. No: Rales, Rhonchi, Wheezes Gastrointestinal: Yes: Normal Bowel Sounds, Soft, Distention, Tenderness (mild in epigastric area) Edema: No Labs: CBC, BMP 03/22/18 06:20 03/22/18 06:20 INR, PTT INR 1.00 (0.83-1.09) 03/19/18 09:20 Assessment/Plan Current Active Problems Abdominal pain (Acute) Acute blood loss anemia (Acute) Alcohol withdrawal (Acute) CHF (congestive heart failure) (Acute) CKD (chronic kidney disease) stage 4, GFR 15-29 ml/min (Acute) COPD (chronic obstructive pulmonary disease) (Acute) Coffee ground emesis (Acute) Dizziness (Acute) Duodenal ulcer with hemorrhage (Acute) HTN (hypertension) (Acute) Hyperkalemia (Acute) Hyperlipidemia (Acute) Lightheadedness (Acute) Melena (Acute) Tobacco dependence (Acute) Alcohol abuse (Chronic) -will transfuse 1 unit PRBC today, check iron levels, start iron (likely iron deficient)
[2018-03-22] MEDS: FERROUS SO4 325 MG TABLET (FP) PO SCH (13:04)
[2018-03-22] MEDS: chlordiazePOXIDE 5 MG CAPSULE PO SCH ×2 (17:27→23:17)
[2018-03-22] MEDS: THIAMINE HCL 100 MG TABLET (FP) PO SCH (21:30)
[2018-03-22] MEDS: TAMSULOSIN HCL 0.4 MG CAP.ER.24H (FP) PO SCH (21:30)
[2018-03-23 06:06] LABS: SERUM IRON SATURATION 11 % (15-55); TOTAL IRON BINDING CAPACITY 221 ug/dL (250-450); UIBC 197 ug/dL (111-343)
[2018-03-23] MEDS: chlordiazePOXIDE 5 MG CAPSULE PO SCH ×2 (06:28→11:21)
[2018-03-23 07:35] LABS: BASO % 0.5 % (0-2.0); EOS % 1.6 % (0-4.5); HEMATOCRIT 26.5 % (35.4-49); HEMOGLOBIN 9.2 GM/dL (11.7-16.9); LYMPH % 28.1 % (8-40); MCH 32.7 pg (25.7-33.7); MCHC 34.7 g/dl (32.0-35.9); MEAN CELL VOLUME 94.3 fl (80-96); MEAN PLT VOLUME 8.8 fl (7.5-11.1); MONO % 5.8 % (3.8-10.2); PLATELET COUNT 165 K/MM3 (134-434); RBC 2.81 M/mm3 (4.00-5.60); RDW 15.1 % (11.9-15.9); WHITE BLOOD COUNT 9.1 K/mm3 (4.0-10.0)
[2018-03-23] MEDS: hydrALAZINE HCL 25 MG TABLET (FP) PO SCH ×2 (09:27→21:16)
[2018-03-23] MEDS: CYANOCOBALAMIN 1,000 MCG TABLET (FP) PO SCH (09:27)
[2018-03-23] MEDS: SUCRALFATE 1 GM/10 ML UNIT DOSE CUPS PO SCH ×4 (09:27→21:17)
[2018-03-23] MEDS: FERROUS SO4 325 MG TABLET (FP) PO SCH (09:27)
[2018-03-23] MEDS: PANTOPRAZOLE 40 MG TABLET (FP) PO SCH ×2 (09:27→21:17)
[2018-03-23] MEDS: amLODIPine BESYLATE 10 MG TABLET (FP) PO SCH (09:27)
[2018-03-23] MEDS: CARVEDILOL 25 MG TABLET (FP) PO SCH ×2 (09:27→21:17)
--- NOTE | 2018-03-23 11:15 | PATH ---
Surgical Pathology Report Patient Name: DOMINIK CHANDLER Med. Rec. #: [id number] /Age/Gender: 1960 (Age: 58) / M Account: [id number] Location: [facility] MED/SURG Taken: 03/19/2018 Received: 03/20/2018 Reported: 03/23/2018 Physicians: Sudhir Corral M.D. PHYSICIAN EMERGENCY DEPT Specimen(s) Received BX ANTRUM AND BODY Clinical History GI bleeding Postoperative diagnosis: Duodenal ulcer (duodenal bulb) Final Diagnosis STOMACH, ANTRUM AND BODY, BIOPSY: Gastric OXYNTIC mucosa with moderate chronic active gastritis. SEPARATE FRAGMENTS OF ACUTE INFLAMMATORY INFILTRATE CONSISTENT WITH ULCER BASE. Immunohistochemical stain for H. Pylori is POSITIVE (few). Electronically Signed Holly Joshi M.D. Gross Description Received in formalin labeled "biopsy antrum and body," is a 0.6 x 0.5 x 0.2 cm aggregate of carlson brown soft tissue fragments. The formalin is filtered and the specimen is entirely submitted in one cassette. /03/20/2018 saudi03/20/2018
--- NOTE | 2018-03-23 11:58 | PN ---
Progress Note, Physician Chief Complaint: Pt sitting in chair in no acute distress. denies any N/V/D,sob, chest pain. tolerated diet this am. ambulating without difficulty. had a small formed black bm yesterday, no other bms since then - Current Medication List Current Medications: Active Medications Amlodipine Besylate (Norvasc -) 10 mg PO DAILY [facility] Last Admin: 03/23/18 09:27 Dose: 10 mg Carvedilol (Coreg -) 25 mg PO BID [facility] Last Admin: 03/23/18 09:27 Dose: 25 mg Chlordiazepoxide HCl (Librium -) 25 mg PO Q4H PRN PRN Reason: WITHDRAWAL(CONT SUBST) Stop: 03/23/18 16:43 Chlordiazepoxide HCl (Librium -) 10 mg PO [id number] [facility] Stop: 03/24/18 11:01 Chlordiazepoxide HCl (Librium -) 25 mg PO Q6H PRN PRN Reason: WITHDRAWAL(CONT SUBST) Cyanocobalamin (Vitamin B12 -) 1,000 mcg PO DAILY [facility] Last Admin: 03/23/18 09:27 Dose: 1,000 mcg Ferrous Sulfate (Feosol -) 325 mg PO DAILY [facility] Last Admin: 03/23/18 09:27 Dose: 325 mg Hydralazine HCl (Apresoline -) 25 mg PO BID [facility] Last Admin: 03/23/18 09:27 Dose: 25 mg Pantoprazole Sodium (Protonix -) 40 mg PO BID [facility] Last Admin: 03/23/18 09:27 Dose: 40 mg Sucralfate (Carafate Oral Suspension -) 1 gm PO QID [facility] Last Admin: 03/23/18 09:27 Dose: 1 gm Tamsulosin HCl (Flomax -) 0.4 mg PO HS [facility] Last Admin: 03/22/18 21:30 Dose: 0.4 mg Thiamine HCl (Vitamin B1 -) 100 mg PO HS [facility] Last Admin: 03/22/18 21:30 Dose: 100 mg Tramadol HCl (Ultram -) 50 mg PO Q8H PRN PRN Reason: PAIN LEVEL 6-10 - Objective Vital Signs: Vital Signs Temperature 98.9 F 03/23/18 07:00 Pulse Rate 84 03/23/18 07:00 Respiratory Rate 20 03/23/18 07:00 Blood Pressure 124/78 03/23/18 07:00 O2 Sat by Pulse Oximetry (%) 98 03/19/18 13:24 Constitutional: Yes: Well Nourished, No Distress, Calm Cardiovascular: Yes: WNL, Regular Rate and Rhythm. No: Murmur Respiratory: Yes: WNL, Regular, CTA Bilaterally. No: Accessory Muscle Use, SOB , Tachypnea, Wheezes Gastrointestinal: Yes: Normal Bowel Sounds, Soft, Abdomen, Obese, Hernia ( umbillical). No: Tenderness, Vomiting Genitourinary: Yes: WNL Edema: No Neurological: Yes: WNL, Alert, Oriented Psychiatric: Yes: WNL, Alert, Oriented Labs: CBC, BMP 03/23/18 06:15 03/22/18 06:20 INR, PTT INR 1.00 (0.83-1.09) 03/19/18 09:20 Problem List - Problems (1) Duodenal ulcer with hemorrhage Code(s): K26.4 - CHRONIC OR UNSPECIFIED DUODENAL ULCER WITH HEMORRHAGE (2) Acute blood loss anemia Code(s): D62 - ACUTE POSTHEMORRHAGIC ANEMIA (3) Dizziness Code(s): R42 - DIZZINESS AND GIDDINESS (4) Lightheadedness Code(s): R42 - DIZZINESS AND GIDDINESS (5) Coffee ground emesis Code(s): K92.0 - HEMATEMESIS (6) Melena Code(s): K92.1 - MELENA (7) Abdominal pain Code(s): R10.9 - UNSPECIFIED ABDOMINAL PAIN Qualifiers: Abdominal location: left lower quadrant Qualified Code(s): R10.32 - Left lower quadrant pain (8) HTN (hypertension) Code(s): I10 - ESSENTIAL (PRIMARY) HYPERTENSION (9) COPD (chronic obstructive pulmonary disease) Code(s): J44.9 - CHRONIC OBSTRUCTIVE PULMONARY DISEASE, UNSPECIFIED (10) CKD (chronic kidney disease) stage 4, GFR 15-29 ml/min Code(s): N18.4 - CHRONIC KIDNEY DISEASE, STAGE 4 (SEVERE) (11) CHF (congestive heart failure) Code(s): I50.9 - HEART FAILURE, UNSPECIFIED Qualifiers: Heart failure chronicity: chronic (12) Hyperlipidemia Code(s): E78.5 - HYPERLIPIDEMIA, UNSPECIFIED Qualifiers: Hyperlipidemia type: pure hypercholesterolemia Qualified Code(s): E78.00 - Pure hypercholesterolemia, unspecified; E78.0 - Pure hypercholesterolemia (13) Alcohol abuse Code(s): F10.10 - ALCOHOL ABUSE, UNCOMPLICATED (14) Tobacco dependence Code(s): F17.200 - NICOTINE DEPENDENCE, UNSPECIFIED, UNCOMPLICATED (15) Hyperkalemia Code(s): E87.5 - HYPERKALEMIA (16) Anemia Code(s): D64.9 - ANEMIA, UNSPECIFIED Qualifiers: Anemia type: due to chronic kidney disease Chronic kidney disease stage: stage 4 (severe) Qualified Code(s): N18.4 - Chronic kidney disease, stage 4 ( severe); D63.1 - Anemia in chronic kidney disease (17) Alcohol withdrawal Code(s): F10.239 - ALCOHOL DEPENDENCE WITH WITHDRAWAL, UNSPECIFIED Qualifiers: Complication of substance-induced condition: uncomplicated Qualified Code(s ): F10.230 - Alcohol dependence with withdrawal, uncomplicated Assessment/Plan (1) Duodenal ulcer with hemorrhage Assessment/Plan: s/p egd- reveals 2 cm buodenal bulb ulcer, bleeding stopped pathology- moderate chronic active gastritis, suspect secondary to chronic alcohol use s/p 2 units prbcs , hg/hct stable today carafate/protonix soft diet avoid nsaids Code(s): K26.4 - CHRONIC OR UNSPECIFIED DUODENAL ULCER WITH HEMORRHAGE (2) Acute blood loss anemia Assessment/Plan: as above Code(s): D62 - ACUTE POSTHEMORRHAGIC ANEMIA (3) Anemia Assessment/Plan: acute on chronic multifactorial iron deficiency anemia anemia of chronic disease, bleeding duod ulcer continue po iron Code(s): D64.9 - ANEMIA, UNSPECIFIED Qualifiers: Anemia type: due to chronic kidney disease Chronic kidney disease stage: stage 4 (severe) Qualified Code(s): N18.4 - Chronic kidney disease, stage 4 ( severe); D63.1 - Anemia in chronic kidney disease (4) Alcohol withdrawal Assessment/Plan: librium detox advise cessation Code(s): F10.239 - ALCOHOL DEPENDENCE WITH WITHDRAWAL, UNSPECIFIED Qualifiers: Complication of substance-induced condition: uncomplicated Qualified Code(s ): F10.230 - Alcohol dependence with withdrawal, uncomplicated (5) Hyperkalemia Assessment/Plan: resolved nephrology following Code(s): E87.5 - HYPERKALEMIA (6) Abdominal pain Assessment/Plan: chronic, baseline monitor Code(s): R10.9 - UNSPECIFIED ABDOMINAL PAIN Qualifiers: Abdominal location: left lower quadrant Qualified Code(s): R10.32 - Left lower quadrant pain (7) HTN (hypertension) Assessment/Plan: controlled continue home meds Code(s): I10 - ESSENTIAL (PRIMARY) HYPERTENSION (8) COPD (chronic obstructive pulmonary disease) Assessment/Plan: stable smoking cessation Code(s): J44.9 - CHRONIC OBSTRUCTIVE PULMONARY DISEASE, UNSPECIFIED (9) CKD (chronic kidney disease) stage 4, GFR 15-29 ml/min Assessment/Plan: at baseline monitor Code(s): N18.4 - CHRONIC KIDNEY DISEASE, STAGE 4 (SEVERE) (10) CHF (congestive heart failure) Assessment/Plan: chronic, euvolemic last echo 08/28- nl lv/rv last mibi 08/28- nl lvef, no ischemia lasix prn monitor Code(s): I50.9 - HEART FAILURE, UNSPECIFIED Qualifiers: Heart failure chronicity: chronic (11) Hyperlipidemia Assessment/Plan: stable restart statin Code(s): E78.5 - HYPERLIPIDEMIA, UNSPECIFIED Qualifiers: Hyperlipidemia type: pure hypercholesterolemia Qualified Code(s): E78.00 - Pure hypercholesterolemia, unspecified; E78.0 - Pure hypercholesterolemia (12) Tobacco dependence Assessment/Plan: advise smoking cessation nicotine patch if pt prefers Code(s): F17.200 - NICOTINE DEPENDENCE, UNSPECIFIED, UNCOMPLICATED Dispo: Home tomorrow if no clinical changes
[2018-03-23] MEDS: POLYETHYLENE GLYCOL 3350 119 GM BTL PO SCH ×2 (13:20→21:18)
[2018-03-23] MEDS: DOCUSATE SODIUM 100 MG CAPSULE (FP) PO SCH ×2 (13:20→21:17)
--- NOTE | 2018-03-23 16:23 | PN ---
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
[2018-03-23] MEDS ORDERED: IRON SUCROSE INJECTION 100 MG in SODIUM CHLORIDE 95 ML IVPB ONE (16:45)
--- NOTE | 2018-03-23 17:04 | PN ---
Progress Note (short form) - Note Progress Note: NAD. Ambulating. No abdominal symptoms. No bms. Feels constipated. HGB had been trending down. Required 2 u of PRBC in the last 3 days. Recommend: Close monitoring. PPI PO BID, Carafate, CBC q12 hrs x 24 hrs. Repeat EGD if HGB continuous to trend down. Discussed with the patient. Problem List - Problems (1) Acute blood loss anemia Code(s): D62 - ACUTE POSTHEMORRHAGIC ANEMIA (2) Duodenal ulcer with hemorrhage Code(s): K26.4 - CHRONIC OR UNSPECIFIED DUODENAL ULCER WITH HEMORRHAGE
[2018-03-23] MEDS ORDERED: chlordiazePOXIDE 5 MG CAPSULE ONE ×2 (17:11→21:57)
[2018-03-23] MEDS: chlordiazePOXIDE HCL 10 MG CAPSULE PO SCH ×2 (17:20→22:41)
[2018-03-23 19:58] LABS: BASO % 0.4 % (0-2.0); EOS % 1.8 % (0-4.5); HEMATOCRIT 24.3 % (35.4-49); HEMOGLOBIN 8.4 GM/dL (11.7-16.9); LYMPH % 26.6 % (8-40); MCH 32.4 pg (25.7-33.7); MCHC 34.4 g/dl (32.0-35.9); MEAN CELL VOLUME 94.1 fl (80-96); MONO % 6.4 % (3.8-10.2); NEUT % 64.8 % (42.8-82.8); PLATELET COUNT 166 K/MM3 (134-434); RBC 2.59 M/mm3 (4.00-5.60); RDW 15.2 % (11.9-15.9); WHITE BLOOD COUNT 8.6 K/mm3 (4.0-10.0)
[2018-03-23] MEDS: SENNOSIDES 8.6MG TABLET (FP) PO SCH (21:17)
[2018-03-23] MEDS: TAMSULOSIN HCL 0.4 MG CAP.ER.24H (FP) PO SCH (21:17)
[2018-03-23] MEDS: THIAMINE HCL 100 MG TABLET (FP) PO SCH (21:17)
[2018-03-24] MEDS ORDERED: chlordiazePOXIDE 5 MG CAPSULE ONE ×2 (05:27→11:12)
[2018-03-24] MEDS: DOCUSATE SODIUM 100 MG CAPSULE (FP) PO SCH ×3 (05:55→22:54)
[2018-03-24] MEDS: chlordiazePOXIDE HCL 10 MG CAPSULE PO SCH ×2 (05:56→11:46)
[2018-03-24 07:35] LABS: BASO % 0.5 % (0-2.0); EOS % 1.7 % (0-4.5); HEMATOCRIT 25.6 % (35.4-49); HEMOGLOBIN 8.7 GM/dL (11.7-16.9); LYMPH % 24.6 % (8-40); MCH 31.8 pg (25.7-33.7); MEAN CELL VOLUME 93.6 fl (80-96); MEAN PLT VOLUME 8.7 fl (7.5-11.1); MONO % 7.5 % (3.8-10.2); NEUT % 65.7 % (42.8-82.8); PLATELET COUNT 172 K/MM3 (134-434); RBC 2.74 M/mm3 (4.00-5.60); RDW 14.9 % (11.9-15.9); WHITE BLOOD COUNT 7.8 K/mm3 (4.0-10.0)
[2018-03-24 08:02] LABS: CHLORIDE 111 mmol/L (98-107); POTASSIUM 4.1 mmol/L (3.5-5.1); SODIUM 143 mmol/L (136-145)
[2018-03-24 08:08] LABS: ANION GAP 7 (8-16); BLOOD UREA NITROGEN 39 mg/dL (7-18); CALCIUM 8.3 mg/dL (8.5-10.1); CO2 25 mmol/L (21-32); CREATININE 3.3 mg/dL (0.7-1.3); GLUCOSE,RANDOM 92 mg/dL (74-106)
[2018-03-24] MEDS: FERROUS SO4 325 MG TABLET (FP) PO SCH (09:36)
[2018-03-24] MEDS: SUCRALFATE 1 GM/10 ML UNIT DOSE CUPS PO SCH ×4 (09:36→22:54)
[2018-03-24] MEDS: PANTOPRAZOLE 40 MG TABLET (FP) PO SCH ×2 (09:36→22:54)
[2018-03-24] MEDS: CYANOCOBALAMIN 1,000 MCG TABLET (FP) PO SCH (09:36)
[2018-03-24] MEDS: amLODIPine BESYLATE 10 MG TABLET (FP) PO SCH (09:36)
[2018-03-24] MEDS: POLYETHYLENE GLYCOL 3350 119 GM BTL PO SCH ×2 (09:37→21:30)
[2018-03-24] MEDS: hydrALAZINE HCL 25 MG TABLET (FP) PO SCH ×2 (09:37→22:54)
[2018-03-24] MEDS: CARVEDILOL 25 MG TABLET (FP) PO SCH ×2 (09:37→22:54)
[2018-03-24] MEDS ORDERED: BISACODYL 10 MG SUPP.RECT RC ONE (11:21)
--- NOTE | 2018-03-24 11:50 | PN ---
Progress Note, Physician Chief Complaint: Pt sitting in chair in no acute distress. denies any N/V/D,sob, chest pain. ambulating without difficulty. tolerating diet, mild epigastric pain when eating. no bm, feels constipated - Current Medication List Current Medications: Active Medications Amlodipine Besylate (Norvasc -) 10 mg PO DAILY [facility] Last Admin: 03/24/18 09:36 Dose: 10 mg Carvedilol (Coreg -) 25 mg PO BID [facility] Last Admin: 03/24/18 09:37 Dose: 25 mg Chlordiazepoxide HCl (Librium -) 25 mg PO Q6H PRN PRN Reason: WITHDRAWAL(CONT SUBST) Cyanocobalamin (Vitamin B12 -) 1,000 mcg PO DAILY [facility] Last Admin: 03/24/18 09:36 Dose: 1,000 mcg Docusate Sodium (Colace -) 100 mg PO TID [facility] Last Admin: 03/24/18 05:55 Dose: Not Given Ferrous Sulfate (Feosol -) 325 mg PO DAILY [facility] Last Admin: 03/24/18 09:36 Dose: 325 mg Hydralazine HCl (Apresoline -) 25 mg PO BID [facility] Last Admin: 03/24/18 09:37 Dose: 25 mg Pantoprazole Sodium (Protonix -) 40 mg PO BID [facility] Last Admin: 03/24/18 09:36 Dose: 40 mg Polyethylene Glycol (Miralax (For Daily Use) -) 17 gm PO BID [facility] Last Admin: 03/24/18 09:37 Dose: 17 grams Senna (Senna -) 2 tab PO HS [facility] Last Admin: 03/23/18 21:17 Dose: 2 tab Sucralfate (Carafate Oral Suspension -) 1 gm PO QID [facility] Last Admin: 03/24/18 09:36 Dose: 1 gm Tamsulosin HCl (Flomax -) 0.4 mg PO HS [facility] Last Admin: 03/23/18 21:17 Dose: 0.4 mg Thiamine HCl (Vitamin B1 -) 100 mg PO HS [facility] Last Admin: 03/23/18 21:17 Dose: 100 mg Tramadol HCl (Ultram -) 50 mg PO Q8H PRN PRN Reason: PAIN LEVEL 6-10 - Objective Vital Signs: Vital Signs Temperature 98.3 F 03/24/18 05:44 Pulse Rate 83 03/24/18 05:44 Respiratory Rate 18 08/14/18 05:44 Blood Pressure 131/75 03/24/18 05:44 O2 Sat by Pulse Oximetry (%) 98 03/23/18 21:00 Constitutional: Yes: Well Nourished, No Distress, Calm Cardiovascular: Yes: WNL, Regular Rate and Rhythm. No: Murmur Respiratory: Yes: WNL, Regular, CTA Bilaterally, Diminished. No: Accessory Muscle Use, SOB, Tachypnea, Wheezes Gastrointestinal: Yes: WNL, Normal Bowel Sounds, Soft, Abdomen, Obese. No: Distention, Tenderness Genitourinary: Yes: WNL Extremities: Yes: WNL Edema: No Neurological: Yes: WNL, Alert, Oriented Psychiatric: Yes: WNL, Alert, Oriented Labs: CBC, BMP 03/24/18 06:49 03/24/18 06:49 INR, PTT INR 1.00 (0.83-1.09) 03/19/18 09:20 Problem List - Problems (1) Duodenal ulcer with hemorrhage Code(s): K26.4 - CHRONIC OR UNSPECIFIED DUODENAL ULCER WITH HEMORRHAGE (2) Acute blood loss anemia Code(s): D62 - ACUTE POSTHEMORRHAGIC ANEMIA (3) Dizziness Code(s): R42 - DIZZINESS AND GIDDINESS (4) Lightheadedness Code(s): R42 - DIZZINESS AND GIDDINESS (5) Coffee ground emesis Code(s): K92.0 - HEMATEMESIS (6) Melena Code(s): K92.1 - MELENA (7) Abdominal pain Code(s): R10.9 - UNSPECIFIED ABDOMINAL PAIN Qualifiers: Abdominal location: left lower quadrant Qualified Code(s): R10.32 - Left lower quadrant pain (8) HTN (hypertension) Code(s): I10 - ESSENTIAL (PRIMARY) HYPERTENSION (9) COPD (chronic obstructive pulmonary disease) Code(s): J44.9 - CHRONIC OBSTRUCTIVE PULMONARY DISEASE, UNSPECIFIED (10) CKD (chronic kidney disease) stage 4, GFR 15-29 ml/min Code(s): N18.4 - CHRONIC KIDNEY DISEASE, STAGE 4 (SEVERE) (11) CHF (congestive heart failure) Code(s): I50.9 - HEART FAILURE, UNSPECIFIED Qualifiers: Heart failure chronicity: chronic (12) Hyperlipidemia Code(s): E78.5 - HYPERLIPIDEMIA, UNSPECIFIED Qualifiers: Hyperlipidemia type: pure hypercholesterolemia Qualified Code(s): E78.00 - Pure hypercholesterolemia, unspecified; E78.0 - Pure hypercholesterolemia (13) Alcohol abuse Code(s): F10.10 - ALCOHOL ABUSE, UNCOMPLICATED (14) Tobacco dependence Code(s): F17.200 - NICOTINE DEPENDENCE, UNSPECIFIED, UNCOMPLICATED (15) Hyperkalemia Code(s): E87.5 - HYPERKALEMIA (16) Anemia Code(s): D64.9 - ANEMIA, UNSPECIFIED Qualifiers: Anemia type: due to chronic kidney disease Chronic kidney disease stage: stage 4 (severe) Qualified Code(s): N18.4 - Chronic kidney disease, stage 4 ( severe); D63.1 - Anemia in chronic kidney disease (17) Alcohol withdrawal Code(s): F10.239 - ALCOHOL DEPENDENCE WITH WITHDRAWAL, UNSPECIFIED Qualifiers: Complication of substance-induced condition: uncomplicated Qualified Code(s ): F10.230 - Alcohol dependence with withdrawal, uncomplicated Assessment/Plan (1) Duodenal ulcer with hemorrhage Assessment/Plan: s/p egd- reveals 2 cm buodenal bulb ulcer, bleeding stopped pathology- moderate chronic active gastritis, suspect secondary to chronic alcohol use s/p 2 units prbcs , hg/hct mild trend down, plan for repeat egd tomorrow am carafate/protonix soft diet , npo at NM avoid nsaids Code(s): K26.4 - CHRONIC OR UNSPECIFIED DUODENAL ULCER WITH HEMORRHAGE (2) Acute blood loss anemia Assessment/Plan: as above Code(s): D62 - ACUTE POSTHEMORRHAGIC ANEMIA (3) Anemia Assessment/Plan: acute on chronic multifactorial iron deficiency anemia anemia of chronic disease, bleeding duod ulcer received iv venofer x 1, continue po iron Code(s): D64.9 - ANEMIA, UNSPECIFIED Qualifiers: Anemia type: due to chronic kidney disease Chronic kidney disease stage: stage 4 (severe) Qualified Code(s): N18.4 - Chronic kidney disease, stage 4 ( severe); D63.1 - Anemia in chronic kidney disease (4) Alcohol withdrawal Assessment/Plan: librium detox advise cessation Code(s): F10.239 - ALCOHOL DEPENDENCE WITH WITHDRAWAL, UNSPECIFIED Qualifiers: Complication of substance-induced condition: uncomplicated Qualified Code(s ): F10.230 - Alcohol dependence with withdrawal, uncomplicated (5) Hyperkalemia Assessment/Plan: resolved nephrology following Code(s): E87.5 - HYPERKALEMIA (6) Abdominal pain Assessment/Plan: chronic, baseline monitor Code(s): R10.9 - UNSPECIFIED ABDOMINAL PAIN Qualifiers: Abdominal location: left lower quadrant Qualified Code(s): R10.32 - Left lower quadrant pain (7) HTN (hypertension) Assessment/Plan: controlled continue home meds Code(s): I10 - ESSENTIAL (PRIMARY) HYPERTENSION (8) COPD (chronic obstructive pulmonary disease) Assessment/Plan: stable smoking cessation Code(s): J44.9 - CHRONIC OBSTRUCTIVE PULMONARY DISEASE, UNSPECIFIED (9) CKD (chronic kidney disease) stage 4, GFR 15-29 ml/min Assessment/Plan: at baseline monitor Code(s): N18.4 - CHRONIC KIDNEY DISEASE, STAGE 4 (SEVERE) (10) CHF (congestive heart failure) Assessment/Plan: chronic, euvolemic last echo 08/28- nl lv/rv last mibi 08/28- nl lvef, no ischemia lasix prn monitor Code(s): I50.9 - HEART FAILURE, UNSPECIFIED Qualifiers: Heart failure chronicity: chronic (11) Hyperlipidemia Assessment/Plan: stable restart statin Code(s): E78.5 - HYPERLIPIDEMIA, UNSPECIFIED Qualifiers: Hyperlipidemia type: pure hypercholesterolemia Qualified Code(s): E78.00 - Pure hypercholesterolemia, unspecified; E78.0 - Pure hypercholesterolemia (12) Tobacco dependence Assessment/Plan: advise smoking cessation nicotine patch if pt prefers Code(s): F17.200 - NICOTINE DEPENDENCE, UNSPECIFIED, UNCOMPLICATED Dispo: home
[2018-03-24 19:49] LABS: BASO % 0.7 % (0-2.0); EOS % 1.5 % (0-4.5); HEMATOCRIT 22.5 % (35.4-49); HEMOGLOBIN 7.7 GM/dL (11.7-16.9); LYMPH % 24.8 % (8-40); MCH 31.8 pg (25.7-33.7); MCHC 34.1 g/dl (32.0-35.9); MEAN CELL VOLUME 93.3 fl (80-96); MEAN PLT VOLUME 8.9 fl (7.5-11.1); MONO % 8.9 % (3.8-10.2); NEUT % 64.1 % (42.8-82.8); PLATELET COUNT 171 K/MM3 (134-434); RBC 2.41 M/mm3 (4.00-5.60); RDW 15.2 % (11.9-15.9); WHITE BLOOD COUNT 8.5 K/mm3 (4.0-10.0)
[2018-03-24] MEDS: SENNOSIDES 8.6MG TABLET (FP) PO SCH (22:54)
[2018-03-24] MEDS: TAMSULOSIN HCL 0.4 MG CAP.ER.24H (FP) PO SCH (22:54)
[2018-03-24] MEDS: THIAMINE HCL 100 MG TABLET (FP) PO SCH (22:54)
[2018-03-25] MEDS: DOCUSATE SODIUM 100 MG CAPSULE (FP) PO SCH ×2 (05:38→16:14)
[2018-03-25] MEDS ORDERED: IRON SUCROSE INJECTION 100 MG in SODIUM CHLORIDE 95 ML IVPB SCH (08:00)
[2018-03-25] MEDS ORDERED: amLODIPine BESYLATE 5 MG TABLET (FP) PO SCH (08:07)
[2018-03-25 08:09] LABS: BASO % 0.4 % (0-2.0); EOS % 1.6 % (0-4.5); HEMOGLOBIN 8.5 GM/dL (11.7-16.9); LYMPH % 23.3 % (8-40); MCH 32.1 pg (25.7-33.7); MEAN CELL VOLUME 94.5 fl (80-96); MEAN PLT VOLUME 8.9 fl (7.5-11.1); MONO % 8.4 % (3.8-10.2); NEUT % 66.3 % (42.8-82.8); PLATELET COUNT 192 K/MM3 (134-434); RBC 2.64 M/mm3 (4.00-5.60); RDW 15.2 % (11.9-15.9); WHITE BLOOD COUNT 7.6 K/mm3 (4.0-10.0)
--- NOTE | 2018-03-25 08:13 | PN ---
Progress Note (short form) - Note Progress Note: RENAL ALL NOTES AND LABS REVIEWED 58 YEAR OLD SMOKER ETOH USER 1 PINT A DAY OF GIN ADMITTED WITH A DU GASTRITIS YESTEDAY HB DROPPED AGAIN TO 7.7 FE DEF GOT 1 U VENOFER 03/23 WILL BENEFIT FROM MORE IV VENOFER ORDERED 3 MORE DOSES CONTINUE WHILE IN HOSPITAL IF DISCHARGED NEEDS TO SEE DR INIGUEZ TO CONTINUE VENOFER AND PROCRIT FOR EGD TODAY HTN BP DROPPING DC HYDRALAZINE LOWER NORVASC TO 5 WITH HOLD PARAMETERS KEEP COREG ON AVOID BP LOWER THAN 120 CR 3.3 MEDS REVIEWED NO ACUTE INDICATION FOR DIALYSIS RT HANDED SO SAVE LEFT ARM FOR FUTURE ACCESS COUNSELED ABOUT NEED FOR ALCOHOL REHAB PLEASE CALL FOR QUESTIONS DR FORMAN [phone]
[2018-03-25 08:47] LABS: ANION GAP 10 (8-16); BLOOD UREA NITROGEN 32 mg/dL (7-18); CALCIUM 8.5 mg/dL (8.5-10.1); CHLORIDE 114 mmol/L (98-107); CO2 24 mmol/L (21-32); CREATININE 3.3 mg/dL (0.7-1.3); GLUCOSE,RANDOM 86 mg/dL (74-106); POTASSIUM 4.4 mmol/L (3.5-5.1); SODIUM 148 mmol/L (136-145)
[2018-03-25] MEDS ORDERED: EPOETIN ALFA 20,000 UNIT/1 ML VIAL SQ ONE (09:00)
[2018-03-25] MEDS: SUCRALFATE 1 GM/10 ML UNIT DOSE CUPS PO SCH ×3 (09:35→17:37)
[2018-03-25] MEDS: POLYETHYLENE GLYCOL 3350 119 GM BTL PO SCH (09:35)
[2018-03-25] MEDS: PANTOPRAZOLE 40 MG TABLET (FP) PO SCH ×2 (09:35→16:14)
--- NOTE | 2018-03-25 10:43 | PN ---
Progress Note, Physician Chief Complaint: Pt sitting in chair in no acute distress. denies any N/V/D,sob, chest pain. ambulating without difficulty. npo for egd today - Current Medication List Current Medications: Active Medications Amlodipine Besylate (Norvasc -) 5 mg PO DAILY [facility] Carvedilol (Coreg -) 25 mg PO BID [facility] Last Admin: 03/24/18 22:54 Dose: Not Given Cyanocobalamin (Vitamin B12 -) 1,000 mcg PO DAILY [facility] Last Admin: 03/24/18 09:36 Dose: 1,000 mcg Docusate Sodium (Colace -) 100 mg PO TID [facility] Last Admin: 03/25/18 05:38 Dose: Not Given Ferrous Sulfate (Feosol -) 325 mg PO DAILY [facility] Last Admin: 03/24/18 09:36 Dose: 325 mg Iron Sucrose 100 mg/ Sodium (Chloride) 100 mls @ 200 mls/hr IVPB DAILY@0800 [facility] Stop: 03/27/18 08:29 Pantoprazole Sodium (Protonix -) 40 mg PO BID [facility] Last Admin: 03/25/18 09:35 Dose: Not Given Polyethylene Glycol (Miralax (For Daily Use) -) 17 gm PO BID [facility] Last Admin: 03/25/18 09:35 Dose: Not Given Senna (Senna -) 2 tab PO [facility] Last Admin: 03/24/18 22:54 Dose: 2 tab Sucralfate (Carafate Oral Suspension -) 1 gm PO QID [facility] Last Admin: 03/25/18 09:35 Dose: Not Given Tamsulosin HCl (Flomax -) 0.4 mg PO [facility] Last Admin: 03/24/18 22:54 Dose: 0.4 mg Thiamine HCl (Vitamin B1 -) 100 mg PO [facility] Last Admin: 03/24/18 22:54 Dose: 100 mg Tramadol HCl (Ultram -) 50 mg PO Q8H PRN PRN Reason: PAIN LEVEL 6-10 - Objective Vital Signs: Vital Signs Temperature 98 F 03/25/18 09:37 Pulse Rate 77 03/25/18 09:37 Respiratory Rate 18 03/25/18 09:37 Blood Pressure 131/90 03/25/18 09:37 O2 Sat by Pulse Oximetry (%) 97 03/25/18 09:00 Constitutional: Yes: Well Nourished, No Distress, Calm Cardiovascular: Yes: WNL, Regular Rate and Rhythm. No: Murmur, Rub Respiratory: Yes: WNL, Regular, CTA Bilaterally. No: Accessory Muscle Use, Tachypnea, Wheezes Gastrointestinal: Yes: WNL, Normal Bowel Sounds, Soft. No: Distention, Tenderness Genitourinary: Yes: WNL Extremities: Yes: WNL Edema: No Neurological: Yes: WNL, Alert, Oriented Psychiatric: Yes: WNL, Alert, Oriented Labs: CBC, BMP 03/25/18 07:00 03/25/18 07:00 INR, PTT INR 1.00 (0.83-1.09) 03/19/18 09:20 Problem List - Problems (1) Duodenal ulcer with hemorrhage Code(s): K26.4 - CHRONIC OR UNSPECIFIED DUODENAL ULCER WITH HEMORRHAGE (2) Acute blood loss anemia Code(s): D62 - ACUTE POSTHEMORRHAGIC ANEMIA (3) Dizziness Code(s): R42 - DIZZINESS AND GIDDINESS (4) Lightheadedness Code(s): R42 - DIZZINESS AND GIDDINESS (5) Coffee ground emesis Code(s): K92.0 - HEMATEMESIS (6) Melena Code(s): K92.1 - MELENA (7) Abdominal pain Code(s): R10.9 - UNSPECIFIED ABDOMINAL PAIN Qualifiers: Abdominal location: left lower quadrant Qualified Code(s): R10.32 - Left lower quadrant pain (8) HTN (hypertension) Code(s): I10 - ESSENTIAL (PRIMARY) HYPERTENSION (9) COPD (chronic obstructive pulmonary disease) Code(s): J44.9 - CHRONIC OBSTRUCTIVE PULMONARY DISEASE, UNSPECIFIED (10) CKD (chronic kidney disease) stage 4, GFR 15-29 ml/min Code(s): N18.4 - CHRONIC KIDNEY DISEASE, STAGE 4 (SEVERE) (11) CHF (congestive heart failure) Code(s): I50.9 - HEART FAILURE, UNSPECIFIED Qualifiers: Heart failure chronicity: chronic (12) Hyperlipidemia Code(s): E78.5 - HYPERLIPIDEMIA, UNSPECIFIED Qualifiers: Hyperlipidemia type: pure hypercholesterolemia Qualified Code(s): E78.00 - Pure hypercholesterolemia, unspecified; E78.0 - Pure hypercholesterolemia (13) Alcohol abuse Code(s): F10.10 - ALCOHOL ABUSE, UNCOMPLICATED (14) Tobacco dependence Code(s): F17.200 - NICOTINE DEPENDENCE, UNSPECIFIED, UNCOMPLICATED (15) Hyperkalemia Code(s): E87.5 - HYPERKALEMIA (16) Anemia Code(s): D64.9 - ANEMIA, UNSPECIFIED Qualifiers: Anemia type: due to chronic kidney disease Chronic kidney disease stage: stage 4 (severe) Qualified Code(s): N18.4 - Chronic kidney disease, stage 4 ( severe); D63.1 - Anemia in chronic kidney disease (17) Alcohol withdrawal Code(s): F10.239 - ALCOHOL DEPENDENCE WITH WITHDRAWAL, UNSPECIFIED Qualifiers: Complication of substance-induced condition: uncomplicated Qualified Code(s ): F10.230 - Alcohol dependence with withdrawal, uncomplicated Assessment/Plan (1) Duodenal ulcer with hemorrhage Assessment/Plan: s/p egd- reveals 2 cm buodenal bulb ulcer, bleeding was stopped pathology- moderate chronic active gastritis, suspect secondary to chronic alcohol use s/p 2 units prbcs , hg/hct mild trend down, EGD today carafate/protonix soft diet avoid nsaids cbc q12hrs GI following Code(s): K26.4 - CHRONIC OR UNSPECIFIED DUODENAL ULCER WITH HEMORRHAGE (2) Acute blood loss anemia Assessment/Plan: as above Code(s): D62 - ACUTE POSTHEMORRHAGIC ANEMIA (3) Anemia Assessment/Plan: acute on chronic multifactorial iron deficiency anemia anemia of chronic disease, bleeding duod ulcer iv venofer, procrit Code(s): D64.9 - ANEMIA, UNSPECIFIED Qualifiers: Anemia type: due to chronic kidney disease Chronic kidney disease stage: stage 4 (severe) Qualified Code(s): N18.4 - Chronic kidney disease, stage 4 ( severe); D63.1 - Anemia in chronic kidney disease (4) Alcohol withdrawal Assessment/Plan: librium detox advise cessation Code(s): F10.239 - ALCOHOL DEPENDENCE WITH WITHDRAWAL, UNSPECIFIED Qualifiers: Complication of substance-induced condition: uncomplicated Qualified Code(s ): F10.230 - Alcohol dependence with withdrawal, uncomplicated (5) Hyperkalemia Assessment/Plan: resolved nephrology following Code(s): E87.5 - HYPERKALEMIA (6) Abdominal pain Assessment/Plan: chronic, baseline monitor Code(s): R10.9 - UNSPECIFIED ABDOMINAL PAIN Qualifiers: Abdominal location: left lower quadrant Qualified Code(s): R10.32 - Left lower quadrant pain (7) HTN (hypertension) Assessment/Plan: controlled hydralazine d/c;d by nephrology coreg reduced monitor Code(s): I10 - ESSENTIAL (PRIMARY) HYPERTENSION (8) COPD (chronic obstructive pulmonary disease) Assessment/Plan: stable smoking cessation Code(s): J44.9 - CHRONIC OBSTRUCTIVE PULMONARY DISEASE, UNSPECIFIED (9) CKD (chronic kidney disease) stage 4, GFR 15-29 ml/min Assessment/Plan: at baseline monitor Code(s): N18.4 - CHRONIC KIDNEY DISEASE, STAGE 4 (SEVERE) (10) CHF (congestive heart failure) Assessment/Plan: chronic, euvolemic last echo 08/28- nl lv/rv last mibi 08/28- nl lvef, no ischemia lasix prn monitor Code(s): I50.9 - HEART FAILURE, UNSPECIFIED Qualifiers: Heart failure chronicity: chronic (11) Hyperlipidemia Assessment/Plan: stable statin Code(s): E78.5 - HYPERLIPIDEMIA, UNSPECIFIED Qualifiers: Hyperlipidemia type: pure hypercholesterolemia Qualified Code(s): E78.00 - Pure hypercholesterolemia, unspecified; E78.0 - Pure hypercholesterolemia (12) Tobacco dependence Assessment/Plan: advise smoking cessation nicotine patch if pt prefers Code(s): F17.200 - NICOTINE DEPENDENCE, UNSPECIFIED, UNCOMPLICATED Dispo: home tomorrow am if no clinical changes
[2018-03-25] MEDS: CARVEDILOL 25 MG TABLET (FP) PO SCH (11:46)
--- NOTE | 2018-03-25 15:38 | DS ---
Physical Examination Vital Signs: Vital Signs Temperature 97.8 F 03/25/18 15:31 Pulse Rate 86 03/25/18 15:31 Respiratory Rate 22 03/25/18 15:31 Blood Pressure 130/75 03/25/18 15:31 O2 Sat by Pulse Oximetry (%) 97 03/25/18 14:49 Labs: CBC, BMP 03/25/18 07:00 03/25/18 07:00 Discharge Summary Reason For Visit: MELENA Current Active Problems Abdominal pain (Acute) Acute blood loss anemia (Acute) Alcohol withdrawal (Acute) Anemia (Acute) CHF (congestive heart failure) (Acute) CKD (chronic kidney disease) stage 4, GFR 15-29 ml/min (Acute) COPD (chronic obstructive pulmonary disease) (Acute) Coffee ground emesis (Acute) Dizziness (Acute) Duodenal ulcer with hemorrhage (Acute) HTN (hypertension) (Acute) Hyperkalemia (Acute) Hyperlipidemia (Acute) Lightheadedness (Acute) Melena (Acute) Tobacco dependence (Acute) Alcohol abuse (Chronic) Hospital Course: 58 year old male admitted for bleeding duodenal ulcer-s/p egdx2, s/p 2 units prbcs. initial egd revealed bleeding duodenal ulcer, cytology w/ chronic active gastritis. suspect secondary to alcohol abuse. stay was prolonged by hg trending down.repeat egd yesterday without acute changes, reveals healing bulbar ulcer. pt also completed librium detox, resources provided. pt advised to stop smoking/drinking. pt doing well, vitals stable, tolerating diet. f/u as directed. 32 mins spent d/c planning Condition: Good - Instructions Diet, Activity, Other Instructions: venofer infusions/procrit with nephrology d/c'd hydralazine protonix and carafate x 7 weeks advise smoking cessation, avoid alcohol intake f/u as directed Referrals: Jr Cheek MD [Primary Care Provider] - 1 Week Shirley Ventura MD [Staff Physician] - 1 Week Disposition: HOME - Home Medications Comprehensive Discharge Medication List: Ambulatory Orders Calcitriol [Calcitriol -] 0.25 mcg PO DAILY 03/19/18 Carvedilol [Coreg -] 25 mg PO BID 03/19/18 Furosemide [Lasix] 40 mg PO PRN PRN 03/19/18 Simvastatin 20 mg PO HS 03/19/18 Tamsulosin HCl [Flomax] 0.4 mg PO HS 03/19/18 Amlodipine Besylate [Norvasc -] 5 mg PO DAILY #30 tablet 03/25/18 Cyanocobalamin [Vitamin B12 -] 1,000 mcg PO DAILY #30 tablet 03/25/18 Ferrous Sulfate [Feosol] 325 mg PO DAILY #30 ud 03/25/18 Pantoprazole Sodium [Protonix -] 40 mg PO BID #74 tablet.ec 03/25/18 Sucralfate Oral Suspension [Carafate Oral Suspension -] 1 gm PO QID #120 ml Thiamine HCl [Vitamin B1 -] 100 mg PO HS #30 tablet 03/25/18
[2018-03-25] MEDS: FERROUS SO4 325 MG TABLET (FP) PO SCH (16:13)
[2018-03-25] MEDS ORDERED: PT OWN MED DRAWER 7, Y5N ONE (16:15)
[2018-03-25] MEDS: CYANOCOBALAMIN 1,000 MCG TABLET (FP) PO SCH (16:16)
[2018-03-25 18:00] VITALS: BP 135/69; PULSE 80; TEMP 98.3
[2018-03-25 18:23] LABS: BASO % 0.5 % (0-2.0); HEMATOCRIT 24.6 % (35.4-49); HEMOGLOBIN 8.3 GM/dL (11.7-16.9); LYMPH % 25.7 % (8-40); MEAN CELL VOLUME 94.3 fl (80-96); MEAN PLT VOLUME 8.9 fl (7.5-11.1); MONO % 8.5 % (3.8-10.2); NEUT % 63.3 % (42.8-82.8); PLATELET COUNT 191 K/MM3 (134-434); RDW 15.1 % (11.9-15.9); WHITE BLOOD COUNT 8.3 K/mm3 (4.0-10.0)
== END 2018-03-25 19:00 | disposition home or self-care (01) | DRG 378 ==
LOC: JER 08:21 → JERBED 13:00 → JICU 15:55 → J7W 03-20 21:06
PROVIDERS: ADMIT Internal Medicine; ATTEND Internal Medicine
PROC: HZ2ZZZZ Detoxification Services for Substance Abuse Treatment (ICD-10-PCS; 2018-03-20)
PROC: 30233N1 Transfusion of Nonautologous Red Blood Cells into Peripheral Vein, Percutaneous Approach (ICD-10-PCS; 2018-03-20)
PROC: 0DJ08ZZ Inspection of Upper Intestinal Tract, Via Natural or Artificial Opening Endoscopic (ICD-10-PCS; principal; 2018-03-25 14:15)
DX: K26.0 Acute duodenal ulcer with hemorrhage (principal); E87.2 Acidosis; N17.9 Acute kidney failure, unspecified; D62 Acute posthemorrhagic anemia; I42.8 Other cardiomyopathies; F10.230 Alcohol dependence with withdrawal, uncomplicated; I13.0 Hypertensive heart and chronic kidney disease with heart failure and stage 1 through stage 4 chronic kidney disease, or unspecified chronic kidney disease; N18.4 Chronic kidney disease, stage 4 (severe); K92.2 Gastrointestinal hemorrhage, unspecified; E78.5 Hyperlipidemia, unspecified; N40.0 Benign prostatic hyperplasia without lower urinary tract symptoms; J44.9 Chronic obstructive pulmonary disease, unspecified; K74.60 Unspecified cirrhosis of liver; E87.5 Hyperkalemia; M54.5 Low back pain; M51.26 Other intervertebral disc displacement, lumbar region; K42.9 Umbilical hernia without obstruction or gangrene; F17.210 Nicotine dependence, cigarettes, uncomplicated; R10.32 Left lower quadrant pain; R42 Dizziness and giddiness; I50.9 Heart failure, unspecified; E86.1 Hypovolemia; K29.50 Unspecified chronic gastritis without bleeding
CPT/HCPCS: 36415; 36430; 71045-TC-FY; 74176-TC; 80048; 80053; 82140; 82550; 82728; 82962; 83540; 83550; 83605; 83690; 83735; 84100; 84132; 84484; 85025; 85027; 85610; 85730; 86850; 86900; 86901; 86922; 87040; 88305-TC; 93005; 93010; 99283-25; J0885; J1756; J7030; P9038; P9058

== ENCOUNTER 2018-10-12 15:41 | Inpatient (IN) | payer OTHER ==
--- NOTE | 2018-10-12 15:48 | PDOC ---
Rapid Medical Evaluation Time Seen by Provider: 10/12/18 15:43 Medical Evaluation: Allergies Allergy/AdvReac Type Severity Reaction Status Date / Time No Known Allergies Allergy Verified 03/19/18 08:30 10/12/18 15:43 I have performed a brief in-person evaluation of this patient. The patient presents with a chief complaint of: sent by PMD for worsening renal failure Pertinent physical exam findings:diminished breath sounds left base. 2+ pedal edema RLE I have ordered the following: labs, urine, EKG, CXR The patient will proceed to the ED for further evaluation. Discharge Disposition - Diagnosis Abnormal laboratory test result - Referrals - Patient Instructions - Post Discharge Activity
[2018-10-12 16:30] LABS: BASO % 0.9 % (0-2.0); EOS % 3.1 % (0-4.5); HEMATOCRIT 32.4 % (35.4-49); HEMOGLOBIN 11.3 GM/dL (11.7-16.9); LYMPH % 20.6 % (8-40); MCHC 34.7 g/dl (32.0-35.9); MEAN CELL VOLUME 89.3 fl (80-96); MEAN PLT VOLUME 9.1 fl (7.5-11.1); NEUT % 67.4 % (42.8-82.8); PLATELET COUNT 305 K/MM3 (134-434); RBC 3.63 M/mm3 (4.00-5.60); RDW 14.3 % (11.9-15.9); WHITE BLOOD COUNT 7.8 K/mm3 (4.0-10.0)
[2018-10-12 16:43] LABS: INR 0.94 (0.83-1.09); PROTHROMBIN TIME (PATIENT) 11.1 SEC (9.7-13.0)
--- NOTE | 2018-10-12 17:05 | PDOC ---
History of Present Illness - General Chief Complaint: Shortness of Breath Stated Complaint: ABD RESULTS Time Seen by Provider: 10/12/18 15:43 History Source: Patient - History of Present Illness Timing/Duration: other Past History - Past Medical History Allergies/Adverse Reactions: Allergies Allergy/AdvReac Type Severity Reaction Status Date / Time No Known Allergies Allergy Verified 10/12/18 15:44 Home Medications: Ambulatory Orders Calcitriol [Calcitriol -] 0.25 mcg PO DAILY 03/19/18 Carvedilol [Coreg -] 25 mg PO BID 03/19/18 Furosemide [Lasix] 40 mg PO PRN PRN 03/19/18 Simvastatin 20 mg PO HS 03/19/18 Tamsulosin HCl [Flomax] 0.4 mg PO HS 03/19/18 Amlodipine Besylate [Norvasc -] 5 mg PO DAILY #30 tablet 03/25/18 Asthma: Yes Cardiac Disorders: Yes COPD: No HTN: Yes Hypercholesterolemia: Yes - Immunization History Immunization Up to Date: Yes - Suicide/Smoking/Psychosocial Hx Smoking History: Current some day smoker Have you smoked in the past 12 months: Yes Number of Cigarettes Smoked Daily: 2 Information on smoking cessation initiated: Yes 'Breaking Loose' booklet given: 03/19/18 Hx Alcohol Use: No Drug/Substance Use Hx: No Substance Use Type: None Review of Systems - Review of Systems Constitutional: Yes: Weakness. No: Chills, Fever Respiratory: Yes: Shortness of Breath Cardiac (ROS): No: Chest Pain, Lightheadedness ABD/GI: No: Nausea, Vomiting *Physical Exam - Vital Signs Last Vital Signs Temp Pulse Resp BP Pulse Ox 98.9 F 85 22 H 160/95 99 10/12/18 15:45 10/12/18 15:45 10/12/18 15:45 10/12/18 15:45 10/12/18 16:29 - Physical Exam General Appearance: Yes: Appropriately Dressed. No: Apparent Distress HEENT: positive: Normal Voice Neck: positive: Supple Respiratory/Chest: positive: Lungs Clear, Normal Breath Sounds. negative: Respiratory Distress Cardiovascular: positive: Regular Rate, S1, S2 Gastrointestinal/Abdominal: positive: Soft. negative: Tender Extremity: negative: Pedal Edema Integumentary: positive: Dry, Warm Neurologic: positive: Fully Oriented, Alert, Normal Mood/Affect Moderate Sedation - Procedure Monitoring Vital Signs: Procedure Monitoring Vital Signs Temperature 98.9 F 10/12/18 15:45 Pulse Rate 85 10/12/18 15:45 Respiratory Rate 22 H 10/12/18 15:45 Blood Pressure 160/95 10/12/18 15:45 O2 Sat by Pulse Oximetry (%) 99 10/12/18 16:29 ED Treatment Course - LABORATORY CBC & Chemistry Diagram: 10/12/18 16:15 10/12/18 16:15 - ADDITIONAL ORDERS Additional order review: Laboratory Results 10/12/18 16:15 PT with INR 11.10 INR 0.94 10/12/18 16:15 RBC 3.63 L MCV 89.3 MCHC 34.7 RDW 14.3 MPV 9.1 Neutrophils % 67.4 Lymphocytes % 20.6 Monocytes % 8.0 Eosinophils % 3.1 Basophils % 0.9 Medical Decision Making - Medical Decision Making 10/12/18 17:03 58-year-old male, history of alcohol abuse, CHF on Lasix, HTN, CKD, COPD, BPH, sent in for admission by PMD for worsening renal function on labs last week. Patient states he received call on Friday to come in to the ED but was hoping to hold off until he saw Dr. Cheek later on this week but PMD called him back and told him that he needs to be admitted. Patient reports fatigue with bilateral ankle swelling and shortness of breath for about a month. Is able to urinate at baseline. No chest pain, palpitations, diaphoresis, nausea, vomiting , fever or chills See exam Worsening stage 4 renal failure +weakness/sob x 1 month Cr 8.8 today, (baseline ~3), K 5.3 w/ unremarkable EKG CXR w/ ? pericardial effusion, no resp distress/edema on exam Case d/w hospitalist and pt admitted -Pending renal consult 10/12/18 17:[address] Yossi Bates of renal who was made aware of labs/EKG/ CXR. States he will place orders and continue to follow patient in-house *DC/Admit/Observation/Transfer Diagnosis at time of Disposition: Acute worsening of stage 4 chronic kidney disease - Discharge Dispostion Condition at time of disposition: Fair Decision to Admit order: Yes - Referrals Referrals: Jr Cheek MD [Primary Care Provider] - - Patient Instructions - Post Discharge Activity
[2018-10-12 17:12] LABS: ALBUMIN 2.5 g/dl (3.4-5.0); ALK PHOS 136 U/L (45-117); ANION GAP 10 MMOL/L (8-16); BILIRUBIN,TOTAL 0.4 mg/dL (0.2-1); BLOOD UREA NITROGEN 73 mg/dL (7-18); CALCIUM 7.7 mg/dL (8.5-10.1); CHLORIDE 104 mmol/L (98-107); CO2 23 mmol/L (21-32); GLUCOSE,RANDOM 115 mg/dL (74-106); MAGNESIUM 2.3 mg/dL (1.8-2.4); N-TERMINAL BNP 2413.5 pg/ml (5-125); POTASSIUM 5.3 mmol/L (3.5-5.1); SGOT/AST 30 U/L (15-37); SGPT/ALT 23 U/L (13-61); SODIUM 136 mmol/L (136-145); TOT PROT 7.3 g/dl (6.4-8.2)
[2018-10-12 17:15] LABS: CREATININE 8.8 mg/dL (0.55-1.3)
[2018-10-12] MEDS ORDERED: ALBUTEROL SO4 2.5/IPRATROPIUM 0.5 INH SOL 3 ML VIAL.NEB. NEB PRN (17:37)
[2018-10-12] MEDS ORDERED: SODIUM POLYSTYRENE SULFONATE 15 GM/60 ML BOTTLE PO ONE (17:40)
[2018-10-12] MEDS ORDERED: SODIUM POLYSTYRENE SULFONATE 15 GM/60 ML BOTTLE ONE (17:53)
[2018-10-12] MEDS ORDERED: SODIUM CHLORIDE 1,000 ML IV SCH (18:00)
--- NOTE | 2018-10-12 18:22 | HP ---
CHIEF COMPLAINT:claus PCP: dr hammond HISTORY OF PRESENT ILLNESS: 58-year-old male, history of alcohol abuse, CHF on Lasix, HTN, CKD, COPD, BPH, sent in for admission by PMD for worsening renal function on labs last week. Pt states that he went to his pcp fpr increase in shortness of breath from last month. States now he gets short of breath more quickly but states he still able to do his regular work. Unable to tell how many blocks he can walk. Still uses 2 pillows. Reports orthopnea and increase in swelling in legs. Pt states that he is suppose to be on Lasix 40 bid but he is not using it but he uses it if he sees a swelling in his legs. In last 6 days he has only used in 6 pills of 40 mg. He also states that he uses NSAID for pain control, last time used it 2 week ago. He also reports increase in frequency of urination, hesitancy, thin stream , feeling of incomplete evacuation, increase in dribbling of urine. Denies blood in urine, denies fever and chills, denies chest pain, palpitations, lightheadedness, dizziness, cough. Denies nausea, vomiting, constipation. ER course was notable for: (1)cbc, cmp, cxr (2) (3) Recent Travel: no PAST MEDICAL HISTORY: as above PAST SURGICAL HISTORY: Social History: Smoking: current smoker Alcohol:last drink a week ago Drugs: no Family History: not relevant Allergies No Known Allergies Allergy (Verified 10/12/18 15:44) HOME MEDICATIONS: Home Medications Medication Instructions Recorded Calcitriol [Calcitriol -] 0.25 mcg PO DAILY 03/19/18 Carvedilol [Coreg -] 25 mg PO BID 03/19/18 Furosemide [Lasix] 40 mg PO PRN PRN 03/19/18 Simvastatin 20 mg PO HS 03/19/18 Tamsulosin HCl [Flomax] 0.4 mg PO HS 03/19/18 Amlodipine Besylate [Norvasc -] 5 mg PO DAILY #30 tablet 03/25/18 Hydralazine HCl 25 mg PO BID 10/12/18 REVIEW OF SYSTEMS CONSTITUTIONAL: Absent: fever, chills, diaphoresis, generalized weakness, malaise, loss of appetite, weight change HEENT: Absent: rhinorrhea, nasal congestion, throat pain, throat swelling, difficulty swallowing, mouth swelling, ear pain, eye pain, visual changes CARDIOVASCULAR: Absent: chest pain, syncope, palpitations, irregular heart rate, lightheadedness , peripheral edema RESPIRATORY: Absent: cough, shortness of breath, dyspnea with exertion, orthopnea, wheezing, stridor, hemoptysis GASTROINTESTINAL: Absent: abdominal pain, abdominal distension, nausea, vomiting, diarrhea, constipation, melena, hematochezia GENITOURINARY: Absent: dysuria, frequency, urgency, hesitancy, hematuria, flank pain, genital pain MUSCULOSKELETAL: Absent: myalgia, arthralgia, joint swelling, back pain, neck pain SKIN: Absent: rash, itching, pallor HEMATOLOGIC/IMMUNOLOGIC: Absent: easy bleeding, easy bruising, lymphadenopathy, frequent infections ENDOCRINE: Absent: unexplained weight gain, unexplained weight loss, heat intolerance, cold intolerance NEUROLOGIC: Absent: headache, focal weakness or paresthesias, dizziness, unsteady gait, seizure, mental status changes, bladder or bowel incontinence PSYCHIATRIC: Absent: anxiety, depression, suicidal or homicidal ideation, hallucinations. PHYSICAL EXAMINATION Vital Signs - 24 hr 10/12/18 10/12/18 15:45 16:29 Temperature 98.9 F Pulse Rate 85 Respiratory 22 H Rate Blood Pressure 160/95 O2 Sat by Pulse 99 99 Oximetry (%) GENERAL: Awake, alert, and fully oriented, in no acute distress. HEAD: Normal with no signs of trauma. EYES: Pupils equal, round and reactive to light, extraocular movements intact, sclera anicteric, conjunctiva clear. No lid lag. EARS, NOSE, THROAT: Ears normal, nares patent, oropharynx clear without exudates. dry mucous membranes. NECK: Normal range of motion, supple without lymphadenopathy, no JVD, or masses. LUNGS: Breath sounds equal, clear to auscultation bilaterally. No wheezes, and no crackles. No accessory muscle use. HEART: Regular rate and rhythm, normal S1 and S2 without murmur, rub or gallop. ABDOMEN: Soft, nontender, not distended, normoactive bowel sounds, no guarding, no rebound, no masses. irreducible umblical hernia MUSCULOSKELETAL: Normal range of motion at all joints. No bony deformities or tenderness. No CVA tenderness. UPPER EXTREMITIES: 2+ pulses, warm, well-perfused. No cyanosis. No clubbing. No peripheral edema r LOWER EXTREMITIES: warm, well-perfused. mild calf tenderness in right side. peripheral edema right leg NEUROLOGICAL: Cranial nerves II-XII intact. Normal speech. Normal gait. PSYCHIATRIC: Cooperative. Good eye contact. SKIN: Warm, dry, normal turgor, Laboratory Results - last 24 hr 10/12/18 10/12/18 10/12/18 16:15 16:15 16:15 WBC 7.8 RBC 3.63 L Hgb 11.3 L Hct 32.4 L D MCV 89.3 MCH 31.0 MCHC 34.7 RDW 14.3 Plt Count 305 D MPV 9.1 Absolute Neuts (auto) 5.3 Neutrophils % 67.4 Lymphocytes % 20.6 Monocytes % 8.0 Eosinophils % 3.1 Basophils % 0.9 Nucleated RBC % 0 PT with INR 11.10 INR 0.94 Sodium 136 Potassium 5.3 H Chloride 104 Carbon Dioxide 23 Anion Gap 10 BUN 73 H Creatinine 8.8 H* Creat Clearance w eGFR 6.22 Random Glucose 115 H Calcium 7.7 L Magnesium 2.3 Total Bilirubin 0.4 AST 30 ALT 23 Alkaline Phosphatase 136 H Creatine Kinase 243 Creatine Kinase Index 0.4 CK-MB (CK-2) 1.1 Troponin I 0.02 B-Natriuretic Peptide 2413.5 H Total Protein 7.3 Albumin 2.5 L ASSESSMENT/PLAN: claus on ckd : can be prerenal as pt was taking lasix, ? renal as pt was taking nsaids, ? post renal as pt has obstructive symptoms base line cr 3.0, stage 4. nor cr>8 urine lytes pro: creat ration usg kidney and bladder nephrology consult IV fluid avoid nephrotoxic drugs monitor intake/ output monitor creatinine HTN continue home meds amlodipine coreg hydralazine Hyperkalemia no ekg changes repeat k at 8pm cardiac monitoring albuterol neb x3 kaxylate right leg swelling from 4 week no erythema, trauma , no travle duplex scan right leg h/o chf/ hld/htn on lasix- hold for now echo cardiology consult cxr no congestion. lungs clear to auscultate. get tsh h/o copd no wheezing on exam duoneb prn current smoker; last time smoked 4 days ago. smoke 4 cigs a day chronic pain issues/ lumbar disc herniation continue homemeds avoid nsaid H/o gout serum uric acid bph continue flomax usg bladder to check urine retention umblical hernia irreducable non obstructive hernia surgery follow up outpatient. elevated alp can be because of ckd Fluid : Ns 83 ml/hr electrolyte; serum potasium nutrition: renal diet dvt pro; heparin gi pro ; zantac dispo; tele Visit type - Emergency Visit Emergency Visit: Yes ED Registration Date: 10/12/18 Care time: The patient presented to the Emergency Department on the above date and was hospitalized for further evaluation of their emergent condition. - New Patient This patient is new to me today: Yes Date on this admission: 10/14/18 - Critical Care Critical Care patient: No
[2018-10-12] MEDS: CALCITRIOL 0.25 MCG CAPSULE (FP) PO SCH (18:58)
[2018-10-12] MEDS: ALBUTEROL SO4 0.083% IH SOL 2.5 MG/3 ML VIAL.NEB. NEB SCH (20:52)
--- NOTE | 2018-10-12 21:26 | PN ---
Teaching Attending Note Name of Resident: Mark Batista ATTENDING PHYSICIAN STATEMENT I saw and evaluated the patient. I reviewed the resident's note and discussed the case with the resident. I agree with the resident's findings and plan as documented. SUBJECTIVE: Complains of pain and swelling RLE/R ankle and some dyspnea. No cough/sputum/CP/hemoptysis/fever/chills. OBJECTIVE:Afebrile, Hemodynamically Stable Last Vital Signs Temp Pulse Resp BP Pulse Ox 98 F 82 20 145/91 100 10/12/18 20:48 10/12/18 20:48 10/12/18 20:48 10/12/18 20:48 10/12/18 19:32 HEENT- Atraumatic, Normocephalic. Heart - S1, S2, RRR Lungs - Clear to auscultation, mild decrease in air entry bibasally Abdomen - high BMI, umbilical hernia, soft, non-tender. Bowel Sounds normal. Extremities- Swelling R ankle, mild edema RLE. No calf tenderness Neuro - AAO x 3. Tone/Power normal all 4 extremities Laboratory Results - last 24 hr 10/12/18 10/12/18 10/12/18 16:15 16:15 16:15 WBC 7.8 RBC 3.63 L Hgb 11.3 L Hct 32.4 L D MCV 89.3 MCH 31.0 MCHC 34.7 RDW 14.3 Plt Count 305 D MPV 9.1 Absolute Neuts (auto) 5.3 Neutrophils % 67.4 Lymphocytes % 20.6 Monocytes % 8.0 Eosinophils % 3.1 Basophils % 0.9 Nucleated RBC % 0 PT with INR 11.10 INR 0.94 Sodium 136 Potassium 5.3 H Chloride 104 Carbon Dioxide 23 Anion Gap 10 BUN 73 H Creatinine 8.8 H* Creat Clearance w eGFR 6.22 Random Glucose 115 H Hemoglobin A1c % Calcium 7.7 L Magnesium 2.3 Total Bilirubin 0.4 AST 30 ALT 23 Alkaline Phosphatase 136 H Creatine Kinase 243 Creatine Kinase Index 0.4 CK-MB (CK-2) 1.1 Troponin I 0.02 B-Natriuretic Peptide 2413.5 H Total Protein 7.3 Albumin 2.5 L 10/12/18 16:18 WBC RBC Hgb Hct MCV MCH MCHC RDW Plt Count MPV Absolute Neuts (auto) Neutrophils % Lymphocytes % Monocytes % Eosinophils % Basophils % Nucleated RBC % PT with INR INR Sodium Potassium Chloride Carbon Dioxide Anion Gap BUN Creatinine Creat Clearance w eGFR Random Glucose Hemoglobin A1c % 4.8 Calcium Magnesium Total Bilirubin AST ALT Alkaline Phosphatase Creatine Kinase Creatine Kinase Index CK-MB (CK-2) Troponin I B-Natriuretic Peptide Total Protein Albumin Current Medications Generic Name Dose Route Start Last Admin Trade Name Freq PRN Reason Stop Dose Admin Albuterol Sulfate 1 amp 10/12/18 20:00 10/12/18 20:52 Ventolin 0.083% Nebulizer Soln - NEB 1 amp RQ4H WANDA Administration Albuterol/Ipratropium 1 amp 10/12/18 17:37 Duoneb - NEB Q6H PRN SHORTNESS OF BREATH Amlodipine Besylate 5 mg 10/13/18 10:00 Norvasc - PO DAILY [facility] Atorvastatin Calcium 10 mg 10/12/18 22:00 Lipitor - PO [facility] Calcitriol 0.25 mcg 10/12/18 17:45 10/12/18 18:58 Rocaltrol - PO 0.25 mcg DAILY [facility] Administration Carvedilol 25 mg 10/12/18 22:00 Coreg - PO BID [facility] Heparin Sodium (Porcine) 5,000 unit 10/12/18 22:00 Heparin - SQ TID [facility] Hydralazine HCl 25 mg 10/12/18 22:00 Apresoline - PO BID [facility] Sodium Chloride 1,000 mls @ 83 mls/hr 10/12/18 18:00 10/12/18 18:25 Normal Saline - IV 10/13/18 05:59 83 mls/hr ASDIR [facility] Administration Tamsulosin HCl 0.4 mg 10/12/18 22:00 Flomax - PO [facility] Home Medications Medication Instructions Recorded Calcitriol [Calcitriol -] 0.25 mcg PO DAILY 03/19/18 Carvedilol [Coreg -] 25 mg PO BID 03/19/18 Furosemide [Lasix] 40 mg PO PRN PRN 03/19/18 Simvastatin 20 mg PO HS 03/19/18 Tamsulosin HCl [Flomax] 0.4 mg PO HS 03/19/18 Amlodipine Besylate [Norvasc -] 5 mg PO DAILY #30 tablet 03/25/18 Hydralazine HCl 25 mg PO BID 10/12/18 ASSESSMENT AND PLAN: 58 year old male with history of CGF (unknown diastolic vs systolic), HTN, CKD3 , COPD, BPH, refered to ED by PCP for worsening renal function. Patient rports some increase in SOB and LE edema. He also reports increased urinary frequency, hesitancy, decreased stream, dribbling. No fever/chills. No hematuria. 1. STEPH, etiology unclear, likely pre-renal BUN 73/Creat 8.8 (baseline 3.0)/Bicarb 23 Renal/Bladder US - Echogenic kidneys, R renal cyst, no hydronephrosis, with minimal post-void residual. IV hydration. Hold Lasix. Urine Na/Creat requested. UCx requested. Nephrology consulted 2. Hyperkalemia sec to STEPH ECG - no acute changes Kayexalate/Albuterol Osm[place] monitor. 3. HTN -continue Norvasc, Coreg, Hydralazine 4. RLE edema/R ankle swelling ? Gout - US doppler neg for DVT. Uric Acid level pending. 5. Hx CHF, unknown diatolic versus systolic Echo requested. Lasix held due to STEPH. 6. COPD - Stable, no evidence of exacerbation. Albuterol prn 7. Active Tobacco Use - counseleld. 8. DJD Lumbar Spine/Chronic Pain - No NSAIDs. 9. BPH - Continue Flomax No evidence of urinary obstruction. DVt Px - Heparin
[2018-10-12] MEDS ORDERED: HEPARIN NA (PORCINE) 5,000 UNITS/ML 1ML VIAL SQ SCH (22:00)
[2018-10-12] MEDS: hydrALAZINE HCL 25 MG TABLET (FP) PO SCH (22:12)
[2018-10-12] MEDS: TAMSULOSIN HCL 0.4 MG CAP PO SCH (22:12)
[2018-10-12] MEDS: ATORVASTATIN CA 10 MG TABLET (FP) PO SCH (22:12)
[2018-10-12] MEDS: CARVEDILOL 25 MG TABLET (FP) PO SCH (22:12)
[2018-10-12] MEDS: HEPARIN NA (PORCINE) 5,000 UNITS/ML 1ML VIAL SQ SCH (22:13)
[2018-10-12] MEDS: ACETAMINOPHEN 325 MG TABLET (FP) PO PRN (22:35)
[2018-10-13 00:10] LABS: RATIO URIN PROTEIN/URIN CREAT 6.07 MG/DL
[2018-10-13] MEDS: ALBUTEROL SO4 0.083% IH SOL 2.5 MG/3 ML VIAL.NEB. NEB SCH ×6 (04:00→20:00)
[2018-10-13 07:12] LABS: BASO % 0.5 % (0-2.0); EOS % 3.5 % (0-4.5); HEMOGLOBIN 9.8 GM/dL (11.7-16.9); LYMPH % 23.9 % (8-40); MCH 30.3 pg (25.7-33.7); MCHC 33.7 g/dl (32.0-35.9); MEAN CELL VOLUME 89.8 fl (80-96); MEAN PLT VOLUME 8.3 fl (7.5-11.1); MONO % 10.7 % (3.8-10.2); NEUT % 61.4 % (42.8-82.8); PLATELET COUNT 237 K/MM3 (134-434); RBC 3.23 M/mm3 (4.00-5.60); RDW 14.4 % (11.9-15.9); WHITE BLOOD COUNT 6.2 K/mm3 (4.0-10.0)
[2018-10-13 07:28] LABS: ALBUMIN 2.4 g/dl (3.4-5.0); ALK PHOS 120 U/L (45-117); ANION GAP 10 MMOL/L (8-16); BILIRUBIN,TOTAL 0.2 mg/dL (0.2-1); BLOOD UREA NITROGEN 75 mg/dL (7-18); CALCIUM 7.7 mg/dL (8.5-10.1); CHLORIDE 108 mmol/L (98-107); CHOLESTEROL 124 mg/dL (50-200); CO2 22 mmol/L (21-32); GLUCOSE,RANDOM 83 mg/dL (74-106); HDL CHOLESTEROL 32 mg/dL (40-60); MAGNESIUM 2.2 mg/dL (1.8-2.4); PHOSPHOROUS 6.6 mg/dL (2.5-4.9); POTASSIUM 4.8 mmol/L (3.5-5.1); SGOT/AST 7 U/L (15-37); SGPT/ALT 7 U/L (13-61); SODIUM 140 mmol/L (136-145); TOT PROT 6.5 g/dl (6.4-8.2); TRIGLYCERIDES 172 mg/dL (0-150)
[2018-10-13 08:07] LABS: CREATININE 8.6 mg/dL (0.55-1.3)
[2018-10-13] MEDS ORDERED: amLODIPine BESYLATE 5 MG TABLET (FP) PO SCH (10:00)
[2018-10-13] MEDS: CARVEDILOL 25 MG TABLET (FP) PO SCH ×2 (10:16→21:31)
[2018-10-13] MEDS: CALCITRIOL 0.25 MCG CAPSULE (FP) PO SCH (10:16)
[2018-10-13] MEDS: hydrALAZINE HCL 25 MG TABLET (FP) PO SCH ×2 (10:16→21:30)
[2018-10-13] MEDS: HEPARIN NA (PORCINE) 5,000 UNITS/ML 1ML VIAL SQ SCH (10:16)
[2018-10-13] MEDS: CALCIUM ACETATE 667 MG CAPSULE (FP) PO SCH ×2 (11:45→17:34)
--- NOTE | 2018-10-13 11:46 | CONSULT ---
Consult - text type - Consultation Consultation Note: Renal Consult for STEPH on CKD This is a 58 year old gentleman with hx of CKD stage 4 (baseline Cr ~3.9), Hypertension, Hx of ETOH abuse, ? cirrhosis, Cardiomyopathy who presented with complaints of sob and outpatient labs that showed worsening renal function and admitted with STEPH. Pt with known history of CKD but no definative diagnosis. Does reports sporadic NSAID use. No recent contrast expousure. Was sporadically useing diuretics at home. Reports making urine. Denies any flank pain, dysuria but does have uriary frequency. No N/V/D. + Fatigue. Denies any fever or chills. No sob, chest pain. PMHx: as above Allergies: NKDA Family Hx: NC Social Hx: No T/A/D ROS: as per HPI, all other pertinent ros negative Home Medications Medication Instructions Recorded Calcitriol [Calcitriol -] 0.25 mcg PO DAILY 03/19/18 Carvedilol [Coreg -] 25 mg PO BID 03/19/18 Furosemide [Lasix] 40 mg PO PRN PRN 03/19/18 Simvastatin 20 mg PO HS 03/19/18 Tamsulosin HCl [Flomax] 0.4 mg PO HS 03/19/18 Amlodipine Besylate [Norvasc -] 5 mg PO DAILY #30 tablet 03/25/18 Hydralazine HCl 25 mg PO BID 10/12/18 Vital Signs Temperature 98.4 F 10/13/18 05:26 Pulse Rate 84 10/13/18 09:00 Respiratory Rate 20 10/13/18 09:00 Blood Pressure 160/102 H 10/13/18 09:00 O2 Sat by Pulse Oximetry (%) 100 10/13/18 08:26 Intake & Output 10/10/18 10/11/18 10/12/18 10/13/18 23:59 23:59 23:59 23:59 Intake Total 450 980 Output Total 400 800 Balance 50 180 Weight 115.394 kg 114.85 kg NAD awake and alert neck supple, no JVD RRR, no M/R CTA, no rales or wheeze obese, soft, + distension + LE edema, no cyanosis or clubbing no bladder distension CBC, BMP 10/13/18 05:30 10/13/18 05:30 Current Medications Acetaminophen (Tylenol -) 650 mg PO Q6H PRN PRN Reason: Fever Or Pain Last Admin: 10/12/18 22:35 Dose: 650 mg Albuterol Sulfate (Ventolin 0.083% Nebulizer Soln -) 1 amp NEB RQ4H [facility] Last Admin: 10/13/18 08:36 Dose: 1 amp Albuterol/Ipratropium (Duoneb -) 1 amp NEB Q6H PRN PRN Reason: SHORTNESS OF BREATH Amlodipine Besylate (Norvasc -) 5 mg PO DAILY [facility] Last Admin: 10/13/18 10:16 Dose: 5 mg Atorvastatin Calcium (Lipitor -) 10 mg PO HS [facility] Last Admin: 10/12/18 22:12 Dose: 10 mg Calcitriol (Rocaltrol -) 0.25 mcg PO DAILY [facility] Last Admin: 10/13/18 10:16 Dose: 0.25 mcg Calcium Acetate (Phoslo -) 667 mg PO TIDCM [facility] Carvedilol (Coreg -) 25 mg PO BID [facility] Last Admin: 10/13/18 10:16 Dose: 25 mg Heparin Sodium (Porcine) (Heparin -) 5,000 unit SQ BID [facility] Last Admin: 10/13/18 10:16 Dose: 5,000 unit Hydralazine HCl (Apresoline -) 25 mg PO BID [facility] Last Admin: 10/13/18 10:16 Dose: 25 mg Tamsulosin HCl (Flomax -) 0.4 mg PO HS [facility] Last Admin: 10/12/18 22:12 Dose: 0.4 mg 58 year old gentleman with hx of CKD stage 4 (baseline Cr ~3.9), Hypertension, Hx of ETOH abuse, ? cirrhosis, Cardiomyopathy who presented with complaints of sob and outpatient labs that showed worsening renal function and admitted with STEPH. #Non-oliguric STEPH on CKD vs. progressive CKD #Mild Hyperkalemia #Nephrotinc Range proteinuria #Hypertension #Cardiomyopathy #BPH Etiology of STEPH unclear, could be progressive CKD. STEPH could be ATN from NSAID use, vs acute GN. Cause of CKD unclear as kidney size is preserved and pt with nephrotic range proteinuria. Check serologic work up for nephrotic syndrome (STEPHANIE , ANCA, RPR, Hepatitis, HIV, Hgb A1C). Will plan for tentative renal biopsy tomorrow. Keep NPO after midnight and hold Heparin. Do not start anti-platlet agents at this time. No acute need for [employer] now however if there is not substantial improvement in renal function will need dialysis. Dose all meds for CrCl < 10. Avoid further nsaid exposure, ELROY/ARBs. Can give PRN lasix for edema management. Check Complete Abd US to access for cirrhosis. Start Calcium Acetate with meals Continue flomax Strict I an O
--- NOTE | 2018-10-13 12:06 | PN ---
Teaching Attending Note Name of Resident: Mark Batista ATTENDING PHYSICIAN STATEMENT I saw and evaluated the patient. I reviewed the resident's note and discussed the case with the resident. I agree with the resident's findings and plan as documented. SUBJECTIVE: Reports improvement in pain and swelling RLE/R ankle and dyspnea. No cough/sputum/CP/hemoptysis/fever/chills. OBJECTIVE:Afebrile, Hemodynamically Stable Last Vital Signs Temp Pulse Resp BP Pulse Ox 98.4 F 84 20 160/102 H 100 10/13/18 05:26 10/13/18 09:00 10/13/18 09:00 10/13/18 09:00 10/13/18 08:26 HEENT- Atraumatic, Normocephalic. Heart - S1, S2, RRR Lungs - Clear to auscultation, mild decrease in air entry bibasally Abdomen - high BMI, umbilical hernia, soft, non-tender. Bowel Sounds normal. Extremities- Swelling R ankle, mild edema LEs. No calf tenderness Neuro - AAO x 3. Tone/Power normal all 4 extremities Laboratory Results - last 24 hr 10/12/18 10/12/18 10/12/18 16:15 16:15 16:15 WBC 7.8 RBC 3.63 L Hgb 11.3 L Hct 32.4 L D MCV 89.3 MCH 31.0 MCHC 34.7 RDW 14.3 Plt Count 305 D MPV 9.1 Absolute Neuts (auto) 5.3 Neutrophils % 67.4 Lymphocytes % 20.6 Monocytes % 8.0 Eosinophils % 3.1 Basophils % 0.9 Nucleated RBC % 0 PT with INR 11.10 INR 0.94 Sodium 136 Potassium 5.3 H Chloride 104 Carbon Dioxide 23 Anion Gap 10 BUN 73 H Creatinine 8.8 H* Creat Clearance w eGFR 6.22 Random Glucose 115 H Hemoglobin A1c % Uric Acid Calcium 7.7 L Phosphorus Magnesium 2.3 Total Bilirubin 0.4 AST 30 ALT 23 Alkaline Phosphatase 136 H Creatine Kinase 243 Creatine Kinase Index 0.4 CK-MB (CK-2) 1.1 Troponin I 0.02 B-Natriuretic Peptide 2413.5 H Total Protein 7.3 Albumin 2.5 L Triglycerides Cholesterol Total LDL Cholesterol HDL Cholesterol TSH U Random Total Protein Ur Random Sodium Ur Random Chloride Ur Random Urea Nitrogn Urine Creatinine Protein/Creatinin Ratio 10/12/18 10/12/18 10/12/18 16:18 21:00 22:50 WBC RBC Hgb Hct MCV MCH MCHC RDW Plt Count MPV Absolute Neuts (auto) Neutrophils % Lymphocytes % Monocytes % Eosinophils % Basophils % Nucleated RBC % PT with INR INR Sodium Potassium 5.3 H Chloride Carbon Dioxide Anion Gap BUN Creatinine Creat Clearance w eGFR Random Glucose Hemoglobin A1c % 4.8 Uric Acid Calcium Phosphorus Magnesium Total Bilirubin AST ALT Alkaline Phosphatase Creatine Kinase Creatine Kinase Index CK-MB (CK-2) Troponin I B-Natriuretic Peptide Total Protein Albumin Triglycerides Cholesterol Total LDL Cholesterol HDL Cholesterol TSH U Random Total Protein 473.6 H Ur Random Sodium 66 Ur Random Chloride 63 L Ur Random Urea Nitrogn Urine Creatinine 78.0 Protein/Creatinin Ratio 6.070 10/12/18 10/12/18 10/13/18 22:50 22:50 05:30 WBC 6.2 RBC 3.23 L Hgb 9.8 L Hct 29.0 L MCV 89.8 MCH 30.3 MCHC 33.7 RDW 14.4 Plt Count 237 D MPV 8.3 Absolute Neuts (auto) 3.8 Neutrophils % 61.4 Lymphocytes % 23.9 Monocytes % 10.7 H Eosinophils % 3.5 Basophils % 0.5 Nucleated RBC % 0 PT with INR INR Sodium Potassium Chloride Carbon Dioxide Anion Gap BUN Creatinine Creat Clearance w eGFR Random Glucose Hemoglobin A1c % Uric Acid Calcium Phosphorus Magnesium Total Bilirubin AST ALT Alkaline Phosphatase Creatine Kinase Creatine Kinase Index CK-MB (CK-2) Troponin I B-Natriuretic Peptide Total Protein Albumin Triglycerides Cholesterol Total LDL Cholesterol HDL Cholesterol TSH U Random Total Protein Cancelled Ur Random Sodium Cancelled Ur Random Chloride Ur Random Urea Nitrogn Cancelled Urine Creatinine Cancelled Protein/Creatinin Ratio 10/13/18 05:30 WBC RBC Hgb Hct MCV MCH MCHC RDW Plt Count MPV Absolute Neuts (auto) Neutrophils % Lymphocytes % Monocytes % Eosinophils % Basophils % Nucleated RBC % PT with INR INR Sodium 140 Potassium 4.8 Chloride 108 H Carbon Dioxide 22 Anion Gap 10 BUN 75 H Creatinine 8.6 H* Creat Clearance w eGFR 6.38 Random Glucose 83 Hemoglobin A1c % Uric Acid 8.0 H Calcium 7.7 L Phosphorus 6.6 H Magnesium 2.2 Total Bilirubin 0.2 AST 7 L ALT 7 L Alkaline Phosphatase 120 H Creatine Kinase 159 Creatine Kinase Index 1.0 CK-MB (CK-2) 1.6 Troponin I 0.02 B-Natriuretic Peptide Total Protein 6.5 Albumin 2.4 L Triglycerides 172 H Cholesterol 124 Total LDL Cholesterol 71 HDL Cholesterol 32 L TSH 1.82 U Random Total Protein Ur Random Sodium Ur Random Chloride Ur Random Urea Nitrogn Urine Creatinine Protein/Creatinin Ratio Current Medications Generic Name Dose Route Start Last Admin Trade Name Freq PRN Reason Stop Dose Admin Acetaminophen 650 mg 10/12/18 22:19 10/12/18 22:35 Tylenol - PO 650 mg Q6H PRN Administration Fever Or Pain Albuterol Sulfate 1 amp 10/12/18 20:00 10/13/18 08:36 Ventolin 0.083% Nebulizer Soln - NEB 1 amp RQ4H WANDA Administration Albuterol/Ipratropium 1 amp 10/12/18 17:37 Duoneb - NEB Q6H PRN SHORTNESS OF BREATH Amlodipine Besylate 5 mg 10/13/18 10:00 10/13/18 10:16 Norvasc - PO 5 mg DAILY WANDA Administration Atorvastatin Calcium 10 mg 10/12/18 22:00 10/12/18 22:12 Lipitor - PO 10 mg HS WANDA Administration Calcitriol 0.25 mcg 10/12/18 17:45 10/13/18 10:16 Rocaltrol - PO 0.25 mcg DAILY WANDA Administration Calcium Acetate 667 mg 10/13/18 12:00 10/13/18 11:45 Phoslo - PO 667 mg TIDCM WANDA Administration Carvedilol 25 mg 10/12/18 22:00 10/13/18 10:16 Coreg - PO 25 mg BID WANDA Administration Heparin Sodium (Porcine) 5,000 unit 10/12/18 22:00 10/13/18 10:16 Heparin - SQ 5,000 unit BID WANDA Administration Hydralazine HCl 25 mg 10/12/18 22:00 10/13/18 10:16 Apresoline - PO 25 mg BID WANDA Administration Tamsulosin HCl 0.4 mg 10/12/18 22:00 10/12/18 22:12 Flomax - PO 0.4 mg HS WANDA Administration ASSESSMENT AND PLAN: 58 year old male with history of CHF (unknown diastolic vs systolic), HTN, CKD 4 , COPD, BPH, refered to ED by PCP for worsening renal function. Patient rports some increase in SOB and LE edema. He also reports increased urinary frequency, hesitancy, decreased stream, dribbling. No fever/chills. No hematuria. 1. STEPH on CKD 4, etiology unclear, possible progression of CKD, with Proteinuria BUN 75/Creat 8.6 (baseline 3-4)/Bicarb 22 Non-oliguric. Renal/Bladder US - Echogenic kidneys, R renal cyst, no hydronephrosis, with minimal post-void residual. IV hydration ongoing. Holding Lasix. Serologic work up for nephrotic syndrome requested by Nephrology (STEPHANIE, ANCA, RPR , Hepatitis, HIV, Hgb A1C) UCx requested. Nephrology following - plan for renal biopsy 10/14/18 2. Hyperkalemia sec to STEPH ECG - no acute changes Resolved s/p Kayexalate/Albuterol Will monitor. 3. HTN - BP on high side - Increase Norvasc to 10mg. Continue Coreg, Hydralazine 4. RLE edema/R ankle swelling ? Gout - US doppler neg for DVT. Uric Acid level 8.0. Will hold off on NSAIDs for now due to STEPH. 5. Hx CHF, unknown diastolic versus systolic Echo pending. Lasix held due to STEPH. 6. COPD - Stable, no evidence of exacerbation. Albuterol prn 7. Active Tobacco Use - counselled. 8. DJD Lumbar Spine/Chronic Pain - No NSAIDs. 9. BPH - Continue Flomax No evidence of urinary obstruction. 10. Normocytic Anemia - likely due to CKD - further management as per Nephrology. DVt Px - Heparin
--- NOTE | 2018-10-13 12:06 | CON.CARD ---
Consult Consult Specialty:: Cardiology Referred by:: Medicine Reason for Consultation:: CHF - History of Present Illness Chief Complaint: abnormal Cr History of Present Illness: 58M h/o EtOH abuse, CHF,, HTN, CKD, COPD p/w worsening renal function, sob. Gets short of breath with walking short distances, also complains of orthopnea, joby lower ext edema. Was prescribed lasix 40 mg BID at home, was only taking as needed for leg swelling. In the ER Cr 8, hyperkalemia. nephrology consulted with plan for biopsy. Sees Dr. Jean for cardio. - Past Medical History Cardio/Vascular: Yes: CHF, HTN, Hyperlipdemia Pulmonary: Yes: COPD Gastrointestinal: Yes: Diverticulitis, Other (umbillical hernia) Renal/: Yes: Renal Failure (stage 4), BPH Psych: Yes: Addictions Musculoskeletal: Yes: Chronic low back pain - Past Surgical History Past Surgical History: Yes: None - Alcohol/Substance Use Hx Alcohol Use: No Number of Drinks Daily: 4 (last drink 03/17) History of Substance Use: reports: None - Smoking History Smoking history: Current some day smoker Have you smoked in the past 12 months: Yes Aproximately how many cigarettes per day: 2 - Social History History of Recent Travel: No Home Medications - Allergies Allergies/Adverse Reactions: Allergies Allergy/AdvReac Type Severity Reaction Status Date / Time No Known Allergies Allergy Verified 10/12/18 15:44 - Home Medications Home Medications: Ambulatory Orders Calcitriol [Calcitriol -] 0.25 mcg PO DAILY 03/19/18 Carvedilol [Coreg -] 25 mg PO BID 03/19/18 Furosemide [Lasix] 40 mg PO PRN PRN 03/19/18 Simvastatin 20 mg PO HS 03/19/18 Tamsulosin HCl [Flomax] 0.4 mg PO HS 03/19/18 Amlodipine Besylate [Norvasc -] 5 mg PO DAILY #30 tablet 03/25/18 Hydralazine HCl 25 mg PO BID 10/12/18 Family Disease History - Family Disease History Family Disease History: Diabetes: Mother, Sister (ckd), Heart Disease: Mother, Sister Review of Systems - Review of Systems Constitutional: reports: No Symptoms Eyes: reports: No Symptoms HENT: reports: No Symptoms Neck: reports: No Symptoms Cardiovascular: reports: No Symptoms Respiratory: reports: No Symptoms Gastrointestinal: reports: No Symptoms Genitourinary: reports: No Symptoms Musculoskeletal: reports: No Symptoms Integumentary: reports: No Symptoms Neurological: reports: No Symptoms Endocrine: reports: No Symptoms Hematology/Lymphatic: reports: No Symptoms Psychiatric: reports: No Symptoms Vital Signs: Vital Signs Temperature 98.4 F 10/13/18 05:26 Pulse Rate 84 10/13/18 09:00 Respiratory Rate 20 10/13/18 09:00 Blood Pressure 160/102 H 10/13/18 09:00 O2 Sat by Pulse Oximetry (%) 100 10/13/18 08:26 Constitutional: Yes: No Distress, Calm Eyes: Yes: Conjunctiva Clear, EOM Intact HENT: Yes: Atraumatic, Normocephalic Neck: Yes: Supple, Trachea Midline Respiratory: Yes: Regular, CTA Bilaterally Gastrointestinal: Yes: Normal Bowel Sounds, Soft Cardiovascular: Yes: Regular Rate and Rhythm Heart Sounds: Yes: S1, S2 Extremities: No: Cold Edema: Yes Edema: LLE: 1+, RLE: 1+ Peripheral Pulses WNL: Yes Peripheral Pulses: 2+ Left Doralis Pedis, 2+ Right Dorsalis Pedis Integumentary: No: Jaundice Neurological: Yes: Alert, Oriented Psychiatric: No: Agitated - Other Data Labs, Other Data: CBC, BMP 10/13/18 05:30 10/13/18 05:30 INR, PTT INR 0.94 (0.83-1.09) 10/12/18 16:15 Troponin, BNP 10/12/18 10/13/18 16:15 05:30 Troponin I 0.02 0.02 B-Natriuretic Peptide 2413.5 H Troponin, BNP 10/12/18 10/13/18 16:15 05:30 Troponin I 0.02 0.02 B-Natriuretic Peptide 2413.5 H Assessment/Plan echo 08/2017 nl LV/RV, no significant valvular pathology mibi 08/2017 nl EF, no ischemia EKG: sinus, nl intervals, no ischemic changes CXR: no congestion tele: sinus STEPH on CKD - bl Cr 3.0, now 8.6 - nephrology consulted with plan for biopsy in AM Hyperkalemia - no EKG changes, improved with kayexalate CHF - nl EF on echo 08/2017, repeat echo pending - no recent exacerbation of CHF, taking lasix PRN at home - BNP 2413, CXR no congestion - increasing edema and dyspnea on exertion recently in setting of low UOP, STEPH - holding lasix in setting of STEPH HTN - cont current meds, norvasc, coreg, hydralazine HLD - cont statin COPD - manage per primary
[2018-10-13] MEDS ORDERED: amLODIPine BESYLATE 5 MG TABLET (FP) PO ONE (12:20)
[2018-10-13] MEDS ORDERED: HEPARIN NA (PORCINE) 5,000 UNITS/ML 1ML VIAL SQ SCH ×3 (12:21→22:00)
--- NOTE | 2018-10-13 13:54 | EKG ---
Test Reason : Blood Pressure : / mmHG Vent. Rate : 076 BPM Atrial Rate : 076 BPM P-R Int : 162 ms QRS Dur : 088 ms QT Int : 402 ms P-R-T Axes : 071 074 054 degrees QTc Int : 452 ms NORMAL SINUS RHYTHM ANTEROSEPTAL INFARCT , AGE UNDETERMINED ABNORMAL ECG WHEN COMPARED WITH ECG OF 19-MAR-2018 09:30, ANTEROSEPTAL INFARCT IS NOW PRESENT NONSPECIFIC T WAVE ABNORMALITY NO LONGER EVIDENT IN INFERIOR LEADS T WAVE INVERSION NO LONGER EVIDENT IN LATERAL LEADS Confirmed by MD Josh, Manuel ([id number]) on 10/13/2018 1:53:48 PM Referred By: Confirmed By:Manuel Moreno MD
[2018-10-13 14:36] LABS: URINE APPEARANCE CLEAR; URINE BILIRUBIN NEGATIVE (<2.0 mg/dL); URINE COLOR STRAW; URINE GLUCOSE (UA) 1+ (NEGATIVE); URINE KETONE NEGATIVE (NEGATIVE); URINE LEUK ESTERASE NEGATIVE (NEGATIVE); URINE NITRITE NEGATIVE (NEGATIVE); URINE PROTEIN 3+ (NEGATIVE); URINE UROBILINOGEN NEGATIVE mg/dL (0.2-1.0)
[2018-10-13 15:00] LABS: EPI CELLS RARE /HPF (FEW); URINE BACTERIA RARE /hpf (NONE SEEN)
--- NOTE | 2018-10-13 15:03 | PN ---
Physical Exam: SUBJECTIVE: Patient seen and examined pt feels better no repi distress OBJECTIVE: Vital Signs Period Temp Pulse Resp BP Sys/Cannon Pulse Ox Last 24 Hr 98 F-98.9 F 75-85 20-24 136-160/91-102 99-100 GENERAL: Awake, alert, and fully oriented, in no acute distress. HEAD: Normal with no signs of trauma. EARS, NOSE, THROAT: dry mucous membranes. NECK: Normal range of motion, supple without lymphadenopathy, no JVD, or masses. LUNGS: Breath sounds equal, clear to auscultation bilaterally. No wheezes, and no crackles. No accessory muscle use. HEART: Regular rate and rhythm, normal S1 and S2 without murmur, rub or gallop. ABDOMEN: Soft, nontender, not distended, normoactive bowel sounds, no guarding, no rebound, no masses. irreducible umblical hernia UPPER EXTREMITIES: 2+ pulses, warm, well-perfused. No cyanosis. No clubbing. No peripheral edema r LOWER EXTREMITIES: warm, well-perfused. mild calf tenderness in right side. peripheral edema right leg PSYCHIATRIC: Cooperative. Good eye contact. SKIN: Warm, dry, normal turgor, Laboratory Results - last 24 hr 10/12/18 10/12/18 10/12/18 16:15 16:15 16:15 WBC 7.8 RBC 3.63 L Hgb 11.3 L Hct 32.4 L D MCV 89.3 MCH 31.0 MCHC 34.7 RDW 14.3 Plt Count 305 D MPV 9.1 Absolute Neuts (auto) 5.3 Neutrophils % 67.4 Lymphocytes % 20.6 Monocytes % 8.0 Eosinophils % 3.1 Basophils % 0.9 Nucleated RBC % 0 PT with INR 11.10 INR 0.94 Sodium 136 Potassium 5.3 H Chloride 104 Carbon Dioxide 23 Anion Gap 10 BUN 73 H Creatinine 8.8 H* Creat Clearance w eGFR 6.22 Random Glucose 115 H Hemoglobin A1c % Uric Acid Calcium 7.7 L Phosphorus Magnesium 2.3 Total Bilirubin 0.4 AST 30 ALT 23 Alkaline Phosphatase 136 H Creatine Kinase 243 Creatine Kinase Index 0.4 CK-MB (CK-2) 1.1 Troponin I 0.02 B-Natriuretic Peptide 2413.5 H Total Protein 7.3 Albumin 2.5 L Triglycerides Cholesterol Total LDL Cholesterol HDL Cholesterol TSH Urine Color Urine Appearance Urine pH Ur Specific [place] Urine Protein Urine Glucose (UA) Urine Ketones Urine Blood Urine Nitrite Urine Bilirubin Urine Urobilinogen Ur Leukocyte Esterase Urine WBC (Auto) Urine RBC (Auto) Ur Epithelial Cells Urine Bacteria U Random Total Protein Ur Random Sodium Ur Random Potassium Ur Random Chloride Ur Random Urea Nitrogn Urine Creatinine Protein/Creatinin Ratio RPR Titer HIV 1&2 Antibody Screen HIV P24 Antigen 10/12/18 10/12/18 10/12/18 16:18 21:00 22:50 WBC RBC Hgb Hct MCV MCH MCHC RDW Plt Count MPV Absolute Neuts (auto) Neutrophils % Lymphocytes % Monocytes % Eosinophils % Basophils % Nucleated RBC % PT with INR INR Sodium Potassium 5.3 H Chloride Carbon Dioxide Anion Gap BUN Creatinine Creat Clearance w eGFR Random Glucose Hemoglobin A1c % 4.8 Uric Acid Calcium Phosphorus Magnesium Total Bilirubin AST ALT Alkaline Phosphatase Creatine Kinase Creatine Kinase Index CK-MB (CK-2) Troponin I B-Natriuretic Peptide Total Protein Albumin Triglycerides Cholesterol Total LDL Cholesterol HDL Cholesterol TSH Urine Color Urine Appearance Urine pH Ur Specific [place] Urine Protein Urine Glucose (UA) Urine Ketones Urine Blood Urine Nitrite Urine Bilirubin Urine Urobilinogen Ur Leukocyte Esterase Urine WBC (Auto) Urine RBC (Auto) Ur Epithelial Cells Urine Bacteria U Random Total Protein 473.6 H Ur Random Sodium 66 Ur Random Potassium 24.9 L Ur Random Chloride 63 L Ur Random Urea Nitrogn Urine Creatinine 78.0 Protein/Creatinin Ratio 6.070 RPR Titer HIV 1&2 Antibody Screen HIV P24 Antigen 10/12/18 10/12/18 10/13/18 22:50 22:50 05:30 WBC 6.2 RBC 3.23 L Hgb 9.8 L Hct 29.0 L MCV 89.8 MCH 30.3 MCHC 33.7 RDW 14.4 Plt Count 237 D MPV 8.3 Absolute Neuts (auto) 3.8 Neutrophils % 61.4 Lymphocytes % 23.9 Monocytes % 10.7 H Eosinophils % 3.5 Basophils % 0.5 Nucleated RBC % 0 PT with INR INR Sodium Potassium Chloride Carbon Dioxide Anion Gap BUN Creatinine Creat Clearance w eGFR Random Glucose Hemoglobin A1c % Uric Acid Calcium Phosphorus Magnesium Total Bilirubin AST ALT Alkaline Phosphatase Creatine Kinase Creatine Kinase Index CK-MB (CK-2) Troponin I B-Natriuretic Peptide Total Protein Albumin Triglycerides Cholesterol Total LDL Cholesterol HDL Cholesterol TSH Urine Color Urine Appearance Urine pH Ur Specific [place] Urine Protein Urine Glucose (UA) Urine Ketones Urine Blood Urine Nitrite Urine Bilirubin Urine Urobilinogen Ur Leukocyte Esterase Urine WBC (Auto) Urine RBC (Auto) Ur Epithelial Cells Urine Bacteria U Random Total Protein Cancelled Ur Random Sodium Cancelled Ur Random Potassium Ur Random Chloride Ur Random Urea Nitrogn Cancelled Urine Creatinine Cancelled Protein/Creatinin Ratio RPR Titer HIV 1&2 Antibody Screen HIV P24 Antigen 10/13/18 10/13/18 10/13/18 05:30 12:15 12:15 WBC RBC Hgb Hct MCV MCH MCHC RDW Plt Count MPV Absolute Neuts (auto) Neutrophils % Lymphocytes % Monocytes % Eosinophils % Basophils % Nucleated RBC % PT with INR INR Sodium 140 Potassium 4.8 Chloride 108 H Carbon Dioxide 22 Anion Gap 10 BUN 75 H Creatinine 8.6 H* Creat Clearance w eGFR 6.38 Random Glucose 83 Hemoglobin A1c % 5.9 Uric Acid 8.0 H Calcium 7.7 L Phosphorus 6.6 H Magnesium 2.2 Total Bilirubin 0.2 AST 7 L ALT 7 L Alkaline Phosphatase 120 H Creatine Kinase 159 Creatine Kinase Index 1.0 CK-MB (CK-2) 1.6 Troponin I 0.02 B-Natriuretic Peptide Total Protein 6.5 Albumin 2.4 L Triglycerides 172 H Cholesterol 124 Total LDL Cholesterol 71 HDL Cholesterol 32 L TSH 1.82 Urine Color Urine Appearance Urine pH Ur Specific [place] Urine Protein Urine Glucose (UA) Urine Ketones Urine Blood Urine Nitrite Urine Bilirubin Urine Urobilinogen Ur Leukocyte Esterase Urine WBC (Auto) Urine RBC (Auto) Ur Epithelial Cells Urine Bacteria U Random Total Protein Ur Random Sodium Ur Random Potassium Ur Random Chloride Ur Random Urea Nitrogn Urine Creatinine Protein/Creatinin Ratio RPR Titer HIV 1&2 Antibody Screen Negative HIV P24 Antigen Negative 10/13/18 10/13/18 12:15 13:10 WBC RBC Hgb Hct MCV MCH MCHC RDW Plt Count MPV Absolute Neuts (auto) Neutrophils % Lymphocytes % Monocytes % Eosinophils % Basophils % Nucleated RBC % PT with INR INR Sodium Potassium Chloride Carbon Dioxide Anion Gap BUN Creatinine Creat Clearance w eGFR Random Glucose Hemoglobin A1c % Uric Acid Calcium Phosphorus Magnesium Total Bilirubin AST ALT Alkaline Phosphatase Creatine Kinase Creatine Kinase Index CK-MB (CK-2) Troponin I B-Natriuretic Peptide Total Protein Albumin Triglycerides Cholesterol Total LDL Cholesterol HDL Cholesterol TSH Urine Color Straw Urine Appearance Clear Urine pH 6.0 Ur Specific [place] 1.011 Urine Protein 3+ H Urine Glucose (UA) 1+ H Urine Ketones Negative Urine Blood 1+ H Urine Nitrite Negative Urine Bilirubin Negative Urine Urobilinogen Negative Ur Leukocyte Esterase Negative Urine WBC (Auto) 3 Urine RBC (Auto) 1 Ur Epithelial Cells Rare Urine Bacteria Rare U Random Total Protein Ur Random Sodium Ur Random Potassium Ur Random Chloride Ur Random Urea Nitrogn Urine Creatinine Protein/Creatinin Ratio RPR Titer Nonreactive HIV 1&2 Antibody Screen HIV P24 Antigen Active Medications Generic Name Dose Route Start Last Admin Trade Name Freq PRN Reason Stop Dose Admin Acetaminophen 650 mg 10/12/18 22:19 10/12/18 22:35 Tylenol - PO 650 mg Q6H PRN Administration Fever Or Pain Albuterol Sulfate 1 amp 10/12/18 20:00 10/13/18 08:36 Ventolin 0.083% Nebulizer Soln - NEB 1 amp RQ4H WANDA Administration Albuterol/Ipratropium 1 amp 10/12/18 17:37 Duoneb - NEB Q6H PRN SHORTNESS OF BREATH Amlodipine Besylate 10 mg 10/14/18 10:00 Norvasc - PO DAILY WANDA Atorvastatin Calcium 10 mg 10/12/18 22:00 10/12/18 22:12 Lipitor - PO 10 mg HS WANDA Administration Calcitriol 0.25 mcg 10/12/18 17:45 10/13/18 10:16 Rocaltrol - PO 0.25 mcg DAILY WANDA Administration Calcium Acetate 667 mg 10/13/18 12:00 10/13/18 11:45 Phoslo - PO 667 mg TIDCM WANDA Administration Carvedilol 25 mg 10/12/18 22:00 10/13/18 10:16 Coreg - PO 25 mg BID WANDA Administration Heparin Sodium (Porcine) 5,000 unit 10/13/18 12:21 Heparin - SQ BID WANDA Hydralazine HCl 25 mg 10/12/18 22:00 10/13/18 10:16 Apresoline - PO 25 mg BID WANDA Administration Tamsulosin HCl 0.4 mg 10/12/18 22:00 10/12/18 22:12 Flomax - PO 0.4 mg HS WANDA Administration ASSESSMENT/PLAN: claus on ckd stage 4 : unclear etiology base line cr 3.0, stage 4. now cr 8.6 ua show nephrotic range prtotein in urine serology workup ordered by nephrology ( raza, amca, rpr, hepatitis, hiv ) iv fluid usg kidney/ bladder: echogenic kidney, no hydro, no urine retention. nephrology on case: plan for kidney biopsy tomorrow.10/14/18 hold lasix for now HTN continue home meds amlodipine coreg hydralazine Hyperkalemia no ekg changes resolved right leg swelling from 4 week no erythema, trauma , no travle duplex scan right leg -- negative h/o chf/ hld/htn on lasix- hold for now echo done: report pending cardiology consult cxr no congestion. lungs clear to auscultate. tsh normal h/o copd no wheezing on exam duoneb prn current smoker; last time smoked 4 days ago. smoke 4 cigs a day chronic pain issues/ lumbar disc herniation continue homemeds avoid nsaid H/o gout serum uric acid bph continue flomax umblical hernia irreducable non obstructive hernia surgery follow up outpatient. elevated alp can be because of ckd Fluid : Ns 83 ml/hr electrolyte; serum potasium nutrition: renal diet dvt pro; heparin. hold tomorrow morning dose as pt going for biopsy gi pro ; zantac dispo; tele Visit type - Emergency Visit Emergency Visit: Yes ED Registration Date: 10/12/18 Care time: The patient presented to the Emergency Department on the above date and was hospitalized for further evaluation of their emergent condition. - New Patient This patient is new to me today: No - Critical Care Critical Care patient: No
[2018-10-13] MEDS ORDERED: SODIUM CHLORIDE 1,000 ML IV SCH (15:15)
--- NOTE | 2018-10-13 16:16 | PN ---
Progress Note (short form) - Note Progress Note: Pt reports that he follows with Dr. Lemos. Case was discussed with Dr. Ventura who will take over care tomorrow. Will defer biopsy per their request until prior office records can be reviewed. Paulo Sy DO
[2018-10-13] MEDS: ACETAMINOPHEN 325 MG TABLET (FP) PO PRN (17:34)
[2018-10-13] MEDS: TAMSULOSIN HCL 0.4 MG CAP PO SCH (21:30)
[2018-10-13] MEDS: ATORVASTATIN CA 10 MG TABLET (FP) PO SCH (21:30)
[2018-10-14] MEDS: ALBUTEROL SO4 0.083% IH SOL 2.5 MG/3 ML VIAL.NEB. NEB SCH ×6 (00:30→21:00)
[2018-10-14 04:14] LABS: HEP A AB, IGM Negative (Negative)
[2018-10-14 06:38] LABS: HEMATOCRIT 30.1 % (35.4-49); HEMOGLOBIN 10.1 GM/dL (11.7-16.9); MCH 30.1 pg (25.7-33.7); MCHC 33.5 g/dl (32.0-35.9); MEAN CELL VOLUME 89.9 fl (80-96); MEAN PLT VOLUME 8.5 fl (7.5-11.1); PLATELET COUNT 239 K/MM3 (134-434); RBC 3.35 M/mm3 (4.00-5.60); RDW 14.3 % (11.9-15.9)
[2018-10-14 06:51] LABS: INR 0.99 (0.83-1.09); PROTHROMBIN TIME (PATIENT) 11.7 SEC (9.7-13.0)
--- NOTE | 2018-10-14 07:11 | ECHO ---
Name: DOMINIK CHANDLER Exam:Adult Echocardiogram Study Date: 10/13/2018 09:25 AM Age: 58 yrs Reason For Study: chf Height: 72 in Weight: 256 lb BSA: 2.4 m2 MMode/2D Measurements & Calculations IVSd: 0.90 cm Ao root diam: 4.2 cm LVIDd: 6.0 cm LA dimension: 4.6 cm LVIDs: 3.9 cm ACS: 1.4 cm LVPWd: 1.5 cm IVSs: 1.2 cm LVPWs: 1.5 cm EDV(Teich): 177.9 ml ESV(Teich): 64.9 ml Doppler Measurements & Calculations MV E max ángel: 61.5 cm/sec Ao V2 max: 119.4 cm/sec MV A max ángel: 69.8 cm/sec Ao max P.7 mmHg MV E/A: 0.88 Ao V2 mean: 93.4 cm/sec Ao mean P.8 mmHg Ao V2 VTI: 27.6 cm AI P1/2t: 511.7 msec AI max ángel: 522.4 cm/sec MR max ángel: 586.2 cm/sec AI max P.3 mmHg MR max P.5 mmHg AI dec slope: 299.0 cm/sec2 TR max ángel: 292.5 cm/sec PI end-d ángel: 152.0 cm/sec TR max P.4 mmHg Med Peak E' Ángel: 5.8 cm/sec Med E/e': 10.5 Lat Peak E' Ángel: 7.8 cm/sec Lat E/e': 7.9 Left Ventricle Normal LV size and function. EF 63%. Abnormal diastolic relaxation. Right Ventricle The right ventricle is normal in size and function. Atria Mild LA enlargement. Right atrial size is normal. Mitral Valve The mitral valve is grossly normal. There is mild mitral regurgitation. Tricuspid Valve The tricuspid valve is normal. There is mild tricuspid regurgitation. Aortic Valve The aortic valve is normal in structure and function. Mild aortic regurgitation. Pulmonic Valve The pulmonic valve leaflets are thin and pliable; valve motion is normal. Great Vessels Mild dilation of the aortic root. Pericardium/Pleura There is no pericardial effusion. Interpretation Summary Normal LV size and function. EF 63%. The right ventricle is normal in size and function. Mild LA enlargement. Right atrial size is normal. Abnormal diastolic relaxation The mitral valve is grossly normal. There is mild mitral regurgitation. The tricuspid valve is normal. There is mild tricuspid regurgitation. The aortic valve is normal in structure and function. Mild aortic regurgitation. Mild dilation of the aortic root. MD Manuel Moreno 10/13/2018 03:19 PM
[2018-10-14 07:18] LABS: ALBUMIN 2.3 g/dl (3.4-5.0); ALK PHOS 121 U/L (45-117); ANION GAP 11 MMOL/L (8-16); BILIRUBIN,TOTAL 0.6 mg/dL (0.2-1); BLOOD UREA NITROGEN 74 mg/dL (7-18); CALCIUM 8.4 mg/dL (8.5-10.1); CHLORIDE 109 mmol/L (98-107); CO2 19 mmol/L (21-32); GLUCOSE,RANDOM 81 mg/dL (74-106); MAGNESIUM 2.3 mg/dL (1.8-2.4); POTASSIUM 5.5 mmol/L (3.5-5.1); SGOT/AST 23 U/L (15-37); SGPT/ALT 10 U/L (13-61); SODIUM 139 mmol/L (136-145); TOT PROT 7.4 g/dl (6.4-8.2)
--- NOTE | 2018-10-14 09:05 | PN ---
Physical Exam: SUBJECTIVE: Patient seen and examined feels better no respiratory distress OBJECTIVE: Vital Signs Period Temp Pulse Resp BP Sys/Cannon Pulse Ox Last 24 Hr 97.6 F-98.3 F 70-99 18-20 126-140/75-88 97-97 GENERAL: Awake, alert, and fully oriented, in no acute distress. NECK: , no JVD, or masses. LUNGS: Breath sounds equal, clear to auscultation bilaterally. No wheezes, and no crackles. No accessory muscle use. HEART: Regular rate and rhythm, normal S1 and S2 without murmur, rub or gallop. ABDOMEN: Soft, nontender, not distended, normoactive bowel sounds, no guarding, no rebound, no masses. irreducible umblical hernia UPPER EXTREMITIES: 2+ pulses, warm, well-perfused. No cyanosis. No clubbing. No peripheral edema r LOWER EXTREMITIES: warm, peripheral edema right leg PSYCHIATRIC: Cooperative. Good eye contact. SKIN: Warm, dry, normal turgor, Laboratory Results - last 24 hr 10/12/18 10/13/18 10/13/18 22:50 12:15 12:15 WBC RBC Hgb Hct MCV MCH MCHC RDW Plt Count MPV PT with INR INR Sodium Potassium Chloride Carbon Dioxide Anion Gap BUN Creat Clearance w eGFR Random Glucose Hemoglobin A1c % 5.9 Calcium Magnesium Total Bilirubin AST ALT Alkaline Phosphatase Total Protein Albumin Urine Color Urine Appearance Urine pH Ur Specific [place] Urine Protein Urine Glucose (UA) Urine Ketones Urine Blood Urine Nitrite Urine Bilirubin Urine Urobilinogen Ur Leukocyte Esterase Urine WBC (Auto) Urine RBC (Auto) Ur Epithelial Cells Urine Bacteria Ur Random Potassium 24.9 L RPR Titer Hep A IgM Ab Confirm Negative Hepatitis A Ab Total Positive H HIV 1&2 Antibody Screen HIV P24 Antigen 10/13/18 10/13/18 10/13/18 12:15 12:15 13:10 WBC RBC Hgb Hct MCV MCH MCHC RDW Plt Count MPV PT with INR INR Sodium Potassium Chloride Carbon Dioxide Anion Gap BUN Creat Clearance w eGFR Random Glucose Hemoglobin A1c % Calcium Magnesium Total Bilirubin AST ALT Alkaline Phosphatase Total Protein Albumin Urine Color Straw Urine Appearance Clear Urine pH 6.0 Ur Specific [place] 1.011 Urine Protein 3+ H Urine Glucose (UA) 1+ H Urine Ketones Negative Urine Blood 1+ H Urine Nitrite Negative Urine Bilirubin Negative Urine Urobilinogen Negative Ur Leukocyte Esterase Negative Urine WBC (Auto) 3 Urine RBC (Auto) 1 Ur Epithelial Cells Rare Urine Bacteria Rare Ur Random Potassium RPR Titer Nonreactive Hep A IgM Ab Confirm Hepatitis A Ab Total HIV 1&2 Antibody Screen Negative HIV P24 Antigen Negative 10/14/18 10/14/18 10/14/18 05:30 05:30 05:30 WBC 6.0 RBC 3.35 L Hgb 10.1 L Hct 30.1 L MCV 89.9 MCH 30.1 MCHC 33.5 RDW 14.3 Plt Count 239 MPV 8.5 PT with INR 11.70 INR 0.99 Sodium 139 Potassium 5.5 H Chloride 109 H Carbon Dioxide 19 L Anion Gap 11 BUN 74 H Creat Clearance w eGFR 6.30 Random Glucose 81 Hemoglobin A1c % Calcium 8.4 L Magnesium 2.3 Total Bilirubin 0.6 AST 23 ALT 10 L Alkaline Phosphatase 121 H Total Protein 7.4 Albumin 2.3 L Urine Color Urine Appearance Urine pH Ur Specific [place] Urine Protein Urine Glucose (UA) Urine Ketones Urine Blood Urine Nitrite Urine Bilirubin Urine Urobilinogen Ur Leukocyte Esterase Urine WBC (Auto) Urine RBC (Auto) Ur Epithelial Cells Urine Bacteria Ur Random Potassium RPR Titer Hep A IgM Ab Confirm Hepatitis A Ab Total HIV 1&2 Antibody Screen HIV P24 Antigen Active Medications Generic Name Dose Route Start Last Admin Trade Name Freq PRN Reason Stop Dose Admin Acetaminophen 650 mg 10/12/18 22:19 10/13/18 17:34 Tylenol - PO 650 mg Q6H PRN Administration Fever Or Pain Albuterol Sulfate 1 amp 10/12/18 20:00 10/14/18 04:30 Ventolin 0.083% Nebulizer Soln - NEB 1 amp RQ4H WANDA Administration Albuterol/Ipratropium 1 amp 10/12/18 17:37 Duoneb - NEB Q6H PRN SHORTNESS OF BREATH Amlodipine Besylate 10 mg 10/14/18 10:00 Norvasc - PO DAILY WANDA Atorvastatin Calcium 10 mg 10/12/18 22:00 10/13/18 21:30 Lipitor - PO 10 mg HS WANDA Administration Calcitriol 0.25 mcg 10/12/18 17:45 10/13/18 10:16 Rocaltrol - PO 0.25 mcg DAILY WANDA Administration Calcium Acetate 667 mg 10/13/18 12:00 10/13/18 17:34 Phoslo - PO 667 mg TIDCM WANDA Administration Carvedilol 25 mg 10/12/18 22:00 10/13/18 21:31 Coreg - PO 25 mg BID WANDA Administration Heparin Sodium (Porcine) 5,000 unit 10/13/18 22:00 10/13/18 21:31 Heparin - SQ Not Given BID WANDA Hydralazine HCl 25 mg 10/12/18 22:00 10/13/18 21:30 Apresoline - PO 25 mg BID WANDA Administration Tamsulosin HCl 0.4 mg 10/12/18 22:00 10/13/18 21:30 Flomax - PO 0.4 mg HS WANDA Administration ASSESSMENT/PLAN: claus on ckd stage 4 : unclear etiology base line cr 3.0, stage 4. now cr 8.6 ua show nephrotic range prtotein in urine serology workup negative till now. Immunology work up ordered by nephrology pending usg kidney/ bladder: echogenic kidney, no hydro, no urine retention. Dr rogel is oing to follow a sace from today. Dr hui has discussed the case with them . Kidney biopsy has been deferred for now urine immunofixation needs to be done outpatient. HTN continue home meds amlodipine coreg hydralazine Hyperkalemia no ekg changes resolved right leg swelling from 4 week no erythema, trauma , no travle duplex scan right leg -- negative h/o chf/ hld/htn on lasix- hold for now echo done: report pending cardiology consult cxr no congestion. lungs clear to auscultate. tsh normal h/o copd no wheezing on exam duoneb prn current smoker; last time smoked 4 days ago. smoke 4 cigs a day chronic pain issues/ lumbar disc herniation continue homemeds avoid nsaid H/o gout serum uric acid bph continue flomax umblical hernia irreducable non obstructive hernia surgery follow up outpatient. elevated alp can be because of ckd Fluid :off fluid electrolyte; serum potasium nutrition: renal diet dvt pro; heparin. hold tomorrow morning dose as pt going for biopsy gi pro ; zantac dispo; tele Visit type - Emergency Visit Emergency Visit: Yes ED Registration Date: 10/12/18 Care time: The patient presented to the Emergency Department on the above date and was hospitalized for further evaluation of their emergent condition. - New Patient This patient is new to me today: No - Critical Care Critical Care patient: No
[2018-10-14] MEDS ORDERED: HEPARIN NA (PORCINE) 5,000 UNITS/ML 1ML VIAL SQ SCH ×2 (09:06→14:53)
[2018-10-14] MEDS: CALCIUM ACETATE 667 MG CAPSULE (FP) PO SCH ×3 (09:34→18:15)
[2018-10-14] MEDS: CARVEDILOL 25 MG TABLET (FP) PO SCH ×2 (09:34→22:35)
[2018-10-14] MEDS: CALCITRIOL 0.25 MCG CAPSULE (FP) PO SCH (09:35)
[2018-10-14] MEDS: amLODIPine BESYLATE 5 MG TABLET (FP) PO SCH (09:37)
[2018-10-14] MEDS: hydrALAZINE HCL 25 MG TABLET (FP) PO SCH ×2 (09:40→22:34)
[2018-10-14 09:53] LABS: CREATININE 8.7 mg/dL (0.55-1.3)
[2018-10-14] MEDS ORDERED: SODIUM POLYSTYRENE SULFONATE 15 GM/60 ML BOTTLE PO ONE (10:00)
--- NOTE | 2018-10-14 11:23 | PN ---
Progress Note (short form) - Note Progress Note: RENAL [address] INIGUEZ SINCE 2015 H/O HTN STAGE 4 CKD LAST CR 4.2 IN JUN HB 14 24 HR PROTEIN WAS 1.2 GM NOW ADMITTED WITH EDEMA CR 8 DIURESED WITH LASIX SONO ECHOGENIC KIDNEYS ADD SPEP UIP PLAN FOR RENAL BIOPSY IN AM THEN DC HOME WITH OUT PT APT NEXT WEEK FOR RESULTS CONTINUE LASIX 40 PO BID NEEDS TO CHECK WEIGHTS SAVE LEFT ARM
--- NOTE | 2018-10-14 11:50 | PN ---
Progress Note (short form) - Note Progress Note: s: no chest pain, palps, dizziness, edema Current Medications Acetaminophen (Tylenol -) 650 mg PO Q6H PRN PRN Reason: Fever Or Pain Last Admin: 10/13/18 17:34 Dose: 650 mg Albuterol Sulfate (Ventolin 0.083% Nebulizer Soln -) 1 amp NEB RQ4H [facility] [place] Last Admin: 10/14/18 04:30 Dose: 1 amp Albuterol/Ipratropium (Duoneb -) 1 amp NEB Q6H PRN PRN Reason: SHORTNESS OF BREATH Amlodipine Besylate (Norvasc -) 10 mg PO DAILY [facility] [place] Last Admin: 10/14/18 09:37 Dose: 10 mg Atorvastatin Calcium (Lipitor -) 10 mg PO [facility] Last Admin: 10/13/18 21:30 Dose: 10 mg Calcitriol (Rocaltrol -) 0.25 mcg PO DAILY [facility] [place] Last Admin: 10/14/18 09:35 Dose: 0.25 mcg Calcium Acetate (Phoslo -) 667 mg PO TIDCM [facility] [place] Last Admin: 10/14/18 09:34 Dose: 667 mg Carvedilol (Coreg -) 25 mg PO BID [facility] [place] Last Admin: 10/14/18 09:34 Dose: 25 mg Heparin Sodium (Porcine) (Heparin -) 5,000 unit SQ BID [facility] [place] Last Admin: 10/14/18 09:34 Dose: 5,000 unit Hydralazine HCl (Apresoline -) 25 mg PO BID [facility] [place] Last Admin: 10/14/18 09:40 Dose: Not Given Tamsulosin HCl (Flomax -) 0.4 mg PO [facility] Last Admin: 10/13/18 21:30 Dose: 0.4 mg Vital Signs: Vital Signs Period Temp Pulse Resp BP Sys/Cannon Pulse Ox Last 24 Hr 97.6 F-98.3 F 70-99 18-20 126-140/75-88 97-97 Constitutional: Yes: No Distress, Calm Eyes: Yes: Conjunctiva Clear, EOM Intact HENT: Yes: Atraumatic, Normocephalic Neck: Yes: Supple, Trachea Midline Respiratory: Yes: Regular, CTA Bilaterally Gastrointestinal: Yes: Normal Bowel Sounds, Soft Cardiovascular: Yes: Regular Rate and Rhythm Heart Sounds: Yes: S1, S2 Extremities: No: Cold Edema: Yes Edema: LLE: 1+, RLE: 1+ Peripheral Pulses WNL: Yes Peripheral Pulses: 2+ Left Doralis Pedis, 2+ Right Dorsalis Pedis Integumentary: No: Jaundice Neurological: Yes: Alert, Oriented Psychiatric: No: Agitated Assessment/Plan echo 08/2017 nl LV/RV, no significant valvular pathology mibi 08/2017 nl EF, no ischemia EKG: sinus, nl intervals, no ischemic changes CXR: no congestion echo 10/2018 nl LV/RV function, mild MR, mild TR, mild AR, mild dilation of ao root tele: sinus STEPH on CKD - bl Cr 3.0, now 8.6 - nephrology consulted, planned kidney biopsy tomorrow Hyperkalemia - no EKG changes, improved with kayexalate CHF - nl EF on echo 10/2018 - no recent exacerbation of CHF, taking lasix PRN at home - BNP 2413, CXR no congestion - increasing edema and dyspnea on exertion recently in setting of low UOP, STEPH - restart lasix 40 mg PO BID per nephrology HTN - cont current meds, norvasc, coreg, hydralazine HLD - cont statin COPD - manage per primary
--- NOTE | 2018-10-14 12:43 | EKG ---
Test Reason : Blood Pressure : / mmHG Vent. Rate : 080 BPM Atrial Rate : 080 BPM P-R Int : 168 ms QRS Dur : 084 ms QT Int : 400 ms P-R-T Axes : 071 061 034 degrees QTc Int : 461 ms NORMAL SINUS RHYTHM WITH SINUS ARRHYTHMIA NORMAL ECG WHEN COMPARED WITH ECG OF 12-OCT-2018 16:04, CRITERIA FOR ANTEROSEPTAL INFARCT ARE NO LONGER PRESENT Confirmed by LASHELL ARGUETA, FUAD ([id number]) on 10/14/2018 12:43:33 PM Referred By: Gracie HEWITT Confirmed By:FUAD LOBO MD
[2018-10-14] MEDS: FUROSEMIDE 40 MG TABLET (FP) PO SCH (13:35)
--- NOTE | 2018-10-14 15:49 | PN ---
Teaching Attending Note Name of Resident: Mark Batista ATTENDING PHYSICIAN STATEMENT I saw and evaluated the patient. I reviewed the resident's note and discussed the case with the resident. I agree with the resident's findings and plan as documented. SUBJECTIVE: Mr Aguilar says he is feeling ok today. Says he has some general muscle aches but otherwise is doing well. Denies cp, sob, n/v. Still has swelling in his legs OBJECTIVE: Last Vital Signs Temp Pulse Resp BP Pulse Ox 36.8 C 86 20 138/86 97 10/14/18 05:35 10/14/18 09:00 10/14/18 09:00 10/14/18 09:00 10/14/18 08:36 Gen: nad, obese Pulm: ctab w/o w/r/r CV: rrr w/o m/r/g Abd: +bs, s/nt/nd Ext: 2+ ble pitting edema CBC, BMP 10/14/18 05:30 10/14/18 13:45 ASSESSMENT AND PLAN: Problem List - Problems (1) Acute worsening of stage 4 chronic kidney disease Assessment/Plan: -case d/w Dr Ventura -SPEP ordered -unable to order urine immunofixation, defer to Dr Ventura -plan for renal biopsy tomorrow -if stable, can discharge in next 24-48 hours Code(s): N18.4 - CHRONIC KIDNEY DISEASE, STAGE 4 (SEVERE) (2) CHF (congestive heart failure) Assessment/Plan: -cardiology following -continue lasix Code(s): I50.9 - HEART FAILURE, UNSPECIFIED Qualifiers: Heart failure chronicity: chronic (3) COPD (chronic obstructive pulmonary disease) Assessment/Plan: -stable Code(s): J44.9 - CHRONIC OBSTRUCTIVE PULMONARY DISEASE, UNSPECIFIED (4) HTN (hypertension) Assessment/Plan: -controlled -continue coreg, hydralazine, and amlodipine Code(s): I10 - ESSENTIAL (PRIMARY) HYPERTENSION (5) Hyperkalemia Assessment/Plan: -monitor -repeat lab today normal Code(s): E87.5 - HYPERKALEMIA (6) Hyperlipidemia Assessment/Plan: -continue lipitor Code(s): E78.5 - HYPERLIPIDEMIA, UNSPECIFIED Qualifiers: Hyperlipidemia type: pure hypercholesterolemia Qualified Code(s): E78.00 - Pure hypercholesterolemia, unspecified; E78.0 - Pure hypercholesterolemia
[2018-10-14 18:34] VITALS: BMI 33.7
[2018-10-14 20:12] LABS: COMPLEMENT TOTAL(CH50) > 60 U/mL (>41)
[2018-10-14] MEDS: TAMSULOSIN HCL 0.4 MG CAP PO SCH (22:34)
[2018-10-14] MEDS: ATORVASTATIN CA 10 MG TABLET (FP) PO SCH (22:35)
[2018-10-15] MEDS: ALBUTEROL SO4 0.083% IH SOL 2.5 MG/3 ML VIAL.NEB. NEB SCH ×4 (04:00→16:25)
[2018-10-15 05:46] VITALS: TEMP 98.4
[2018-10-15] MEDS: FUROSEMIDE 40 MG TABLET (FP) PO SCH (07:13)
[2018-10-15] MEDS: CARVEDILOL 25 MG TABLET (FP) PO SCH ×2 (07:17→12:27)
[2018-10-15] MEDS: hydrALAZINE HCL 25 MG TABLET (FP) PO SCH ×2 (07:18→12:25)
[2018-10-15 07:41] LABS: ANION GAP 11 MMOL/L (8-16); BLOOD UREA NITROGEN 73 mg/dL (7-18); CHLORIDE 108 mmol/L (98-107); CO2 22 mmol/L (21-32); GLUCOSE,RANDOM 82 mg/dL (74-106); POTASSIUM 4.4 mmol/L (3.5-5.1); SODIUM 141 mmol/L (136-145)
[2018-10-15 08:27] LABS: CREATININE 8.9 mg/dL (0.55-1.3)
[2018-10-15] MEDS: CALCIUM ACETATE 667 MG CAPSULE (FP) PO SCH (12:25)
[2018-10-15] MEDS: CALCITRIOL 0.25 MCG CAPSULE (FP) PO SCH (12:27)
[2018-10-15] MEDS: amLODIPine BESYLATE 5 MG TABLET (FP) PO SCH (12:27)
--- NOTE | 2018-10-15 12:46 | DS ---
Physical Exam: SUBJECTIVE: Patient seen and examined OBJECTIVE: Vital Signs Period Temp Pulse Resp BP Sys/Cannon Pulse Ox Last 24 Hr 97.8 F-98.4 F 52-82 15-24 118-154/55-110 94-100 PHYSICAL EXAM GENERAL: Awake, alert, and fully oriented, in no acute distress. NECK: , no JVD, or masses. LUNGS: Breath sounds equal, clear to auscultation bilaterally. No wheezes, and no crackles. No accessory muscle use. HEART: Regular rate and rhythm, normal S1 and S2 without murmur, rub or gallop. ABDOMEN: Soft, nontender, not distended, normoactive bowel sounds, no guarding, no rebound, no masses. irreducible umblical hernia UPPER EXTREMITIES: 2+ pulses, warm, well-perfused. No cyanosis. No clubbing. No peripheral edema r LOWER EXTREMITIES: warm, peripheral edema right leg PSYCHIATRIC: Cooperative. Good eye contact. SKIN: Warm, dry, normal turgor, LABS Laboratory Results - last 24 hr 10/12/18 10/13/18 10/14/18 22:50 12:15 13:45 Sodium Potassium 4.4 Chloride Carbon Dioxide Anion Gap BUN Creatinine Creat Clearance w eGFR Random Glucose Calcium Urine Eosinophils None seen STEPHANIE Screen Negative Tot Complement (CH50) > 60 10/15/18 05:30 Sodium 141 Potassium 4.4 Chloride 108 H Carbon Dioxide 22 Anion Gap 11 BUN 73 H Creatinine 8.9 H* Creat Clearance w eGFR 6.14 Random Glucose 82 Calcium 8.0 L Urine Eosinophils STEPHANIE Screen Tot Complement (CH50) Laboratory Tests 10/12/18 10/12/18 10/13/18 22:50 22:50 12:15 Urine Color Urine Appearance Urine pH Ur Specific Gordon Urine Protein Urine Glucose (UA) Urine Ketones Urine Blood Urine Nitrite Urine Bilirubin Urine Urobilinogen Ur Leukocyte Esterase Urine WBC (Auto) Urine RBC (Auto) Ur Epithelial Cells Urine Bacteria Urine Eosinophils None seen U Random Total Protein 473.6 H Ur Random Sodium 66 Ur Random Chloride 63 L Urine Creatinine 78.0 Protein/Creatinin Ratio 6.070 MARCIN M-Jonathan STEPHANIE Screen Negative c-ANCA Pending Proteinase 3 (PR3) Pending p-ANCA Pending Atypical p-ANCA Pending Myeloperoxidase Ab Pending Tot Complement (CH50) > 60 RPR Titer Hep A IgM Ab Confirm Negative Hepatitis A Ab Total Positive H HIV 1&2 Antibody Screen HIV P24 Antigen 10/13/18 10/13/18 10/13/18 12:15 12:15 13:10 Urine Color Straw Urine Appearance Clear Urine pH 6.0 Ur Specific Gordon 1.011 Urine Protein 3+ H Urine Glucose (UA) 1+ H Urine Ketones Negative Urine Blood 1+ H Urine Nitrite Negative Urine Bilirubin Negative Urine Urobilinogen Negative Ur Leukocyte Esterase Negative Urine WBC (Auto) 3 Urine RBC (Auto) 1 Ur Epithelial Cells Rare Urine Bacteria Rare Urine Eosinophils U Random Total Protein Ur Random Sodium Ur Random Chloride Urine Creatinine Protein/Creatinin Ratio MARCIN M-Jonathan STEPHANIE Screen c-ANCA Proteinase 3 (PR3) p-ANCA Atypical p-ANCA Myeloperoxidase Ab Tot Complement (CH50) RPR Titer Nonreactive Hep A IgM Ab Confirm Hepatitis A Ab Total HIV 1&2 Antibody Screen Negative HIV P24 Antigen Negative 10/14/18 13:45 Urine Color Urine Appearance Urine pH Ur Specific Gordon Urine Protein Urine Glucose (UA) Urine Ketones Urine Blood Urine Nitrite Urine Bilirubin Urine Urobilinogen Ur Leukocyte Esterase Urine WBC (Auto) Urine RBC (Auto) Ur Epithelial Cells Urine Bacteria Urine Eosinophils U Random Total Protein Ur Random Sodium Ur Random Chloride Urine Creatinine Protein/Creatinin Ratio MARCIN M-Jonathan Pending STEPHANIE Screen c-ANCA Proteinase 3 (PR3) p-ANCA Atypical p-ANCA Myeloperoxidase Ab Tot Complement (CH50) RPR Titer Hep A IgM Ab Confirm Hepatitis A Ab Total HIV 1&2 Antibody Screen HIV P24 Antigen HOSPITAL COURSE: 58-year-old male, history of alcohol abuse, CHF on Lasix, HTN, CKD, COPD, BPH, sent in for admission by PMD for worsening renal function on labs last week. Pt states that he went to his pcp fpr increase in shortness of breath from last month. States now he gets short of breath more quickly but states he still able to do his regular work. Unable to tell how many blocks he can walk. Still uses 2 pillows. Reports orthopnea and increase in swelling in legs. Pt states that he is suppose to be on Lasix 40 bid but he is not using it but he uses it if he sees a swelling in his legs. In last 6 days he has only used in 6 pills of 40 mg. He also states that he uses NSAID for pain control, last time used it 2 week ago. He also reports increase in frequency of urination , hesitancy, thin stream , feeling of incomplete evacuation, increase in dribbling of urine. Denies blood in urine, denies fever and chills, denies chest pain, palpitations, lightheadedness, dizziness, cough. Denies nausea, vomiting, constipation. In hospital examination and investigations were done. For claus on ckd stage 4 ultrasound of kidney and bladder was done. Ultrasound kidney shows echogenic kidney consistent with chronic kidney disease, no retention of urine in bladder and no hydropehrosis. Adventure Therapist dr hui was consulted who later on consulted dr rogel. Serology and immunology tests were sent, reports mentioned above. Some of the results are pending for which pt will follow up with dr cheek and dr rogel. I/R guided Kidney biopsy was done on 10/15/18 and report is awaited for which pt will follow up with his coil connector dr rogel. Pt also found to have increase phosphorus level for which he is started on phoslo. Pt also have swelling of right lower limb for which duplex scan was done and its negative for dvt. Now pt is feeling better , accepting orally, pt is dc home in stable condition and will follow ups as mentioned below. 1 Follow up with your primary doctor dr cheek with in one week [address] rogel coil connector with in one week. you need to discuss your kidney biopsy result and blood work spep, immunology and serology. Urine immunofiaxtion needs to be ordered as an out patient please ask your coil connector to order this test. 3 [facility] to refer you to general surgeon for umblical hernia evaluation. 4 You have a renal cyst of 3 cm on right side please ask your primary care or coil connector to monitor the size. 5 Take all the medicines as you were taking it before. 6 Check you Blood pressure every day and make a log and present it to your doctor. 7 Eat low salt and low fat diet. 8 We have increased your lasix to 40 mg twice a day 9 If you start gaining weight then please call your doctor 10 For pain tylenol. Dont take NSAID like motrin, naproxen aleve, ibuprofen or orther NSAID as it can damage your kidneys 11 You have been started on Phoslo by coil connector please take it as advised 12 Your prescription for Lasix and phoslo has been sent to your pharmacy [facility] 13 If you get trouble in breathing or chest pain or increasing in swelling in leg or any other symptom then please call your doctor or got to hospital. Date of Admission:10/12/18 Date of Discharge: 10/15/18 Minutes to complete discharge: 45 Discharge Summary Reason For Visit: ACUTE WORSENING OF STAGE 4 CHRONIC KIDNEY DISEASE Current Active Problems Acute worsening of stage 4 chronic kidney disease (Acute) Condition: Fair - Instructions Diet, Activity, Other Instructions: 1 Follow up with your primary doctor dr cheek with in one week [address] rogel coil connector with in one week. you need to discuss your kidney biopsy result and blood work spep, immunology and serology. Urine immunofiaxtion needs to be ordered as an out patient please ask your coil connector to order this test. 3 [facility] primary care doctor to refer you to general surgeon for umblical hernia evaluation. 4 You have a renal cyst of 3 cm on right side please ask your primary care or coil connector to monitor the size. 5 Take all the medicines as you were taking it before. 6 Check you Blood pressure every day and make a log and present it to your doctor. 7 Eat low salt and low fat diet. 8 We have increased your lasix to 40 mg twice a day 9 If you start gaining weight then please call your doctor 10 For pain tylenol. Dont take NSAID like motrin, naproxen aleve, ibuprofen or orther NSAID as it can damage your kidneys 11 You have been started on Phoslo by coil connector please take it as advised 12 Your prescription for Lasix and phoslo has been sent to your pharmacy [facility] 13 If you get trouble in breathing or chest pain or increasing in swelling in leg or any other symptom then please call your doctor or got to hospital. Referrals: Jr Cheek MD [Primary Care Provider] - Shirley Rogel MD [Staff Physician] - 1 Week Nicole Blackburn MD [Staff Physician] - 1 Week Disposition: HOME - Home Medications Comprehensive Discharge Medication List: Ambulatory Orders Calcitriol [Calcitriol -] 0.25 mcg PO DAILY 03/19/18 Carvedilol [Coreg -] 25 mg PO BID 03/19/18 Furosemide [Lasix] 40 mg PO PRN PRN 03/19/18 Simvastatin 20 mg PO HS 03/19/18 Tamsulosin HCl [Flomax] 0.4 mg PO HS 03/19/18 Amlodipine Besylate [Norvasc -] 5 mg PO DAILY #30 tablet 03/25/18 Hydralazine HCl 25 mg PO BID 10/12/18 Calcium Acetate [Phoslo -] 667 mg PO TIDCM #45 capsule 10/15/18 Furosemide [Lasix] 40 mg PO BID #30 tablet 10/15/18 This patient is new to me today: No Emergency Visit: Yes ED Registration Date: 10/12/18 Care time: The patient presented to the Emergency Department on the above date and was hospitalized for further evaluation of their emergent condition. Critical Care patient: No - Discharge Referral Referred to [facility] Med [facility].: No
[2018-10-15 14:34] VITALS: BP 128/73; PULSE 74
[2018-10-15 17:16] LABS: ATYPICAL pANCA <1:20 titer (Neg:<1:20); C-ANCA <1:20 titer (Neg:<1:20); P-ANCA <1:20 titer (Neg:<1:20)
--- NOTE | 2018-11-06 16:22 | PATH ---
Surgical Pathology Report Patient Name: DOMINIK CHANDLER [facility]. Rec. #: [id number] /Age/Gender: 1960 (Age: 58) / M Account: [id number] Location: 4 W TELEMETRY U Taken: 10/15/2018 Received: 10/15/2018 Reported: 11/06/2018 Physicians: Juan Pelletier M.D. Specimen(s) Received RENAL BIOPSY Clinical History HTN, ETOH abuse, COPD, CHF, BPH, CDK4, worsening renal function Intraoperative Consult Diagnosis Right renal biopsy: Glomeruli present. Brian Ley M.D., 10/15/2018 Final Diagnosis RENAL, BIOPSY: CHRONIC INTERSTITIAL NEPHRITIS, SEVERE. SEE COMMENT. SECONDARY FOCAL SEGMENTAL AND DIFFUSE GLOBAL GLOMERULOSCLEROSIS, SEVERE. ARTERIOSCLEROSIS, MODERATE AND ARTERIOLOSCLEROSIS WITH HYALINOSIS, SEVERE. Comments The immunofluorescence findings provide evidence against glomerular disease of the immune complex type. Etiologic considerations include chronic-active pyelonephritis, obstruction, reflux, and allergic/drug induced forms, amongst other causes. The findings of neutrophilic tubulitis and neutrophil casts are most typical of pyelonephritis. Correlation with urine culture and imaging studies is needed. The remote possibility of HIV infection should be excluded clinically. Case sent for consultation to Dr. Micah Barton from [facility], [place], [place] ([id number]), the diagnosis above reflects his opinion. Electronically Signed Holly Joshi M.D. Microscopic Description Sections are stained with H&E, PAS, trichrome, and JMS. Sections show 1 core of cortex with overlying capsule. Fifteen (15) glomeruli are identified, 12 of which are globally sclerotic. The 3 open glomeruli are normal in size. Mesangial areas unremarkable. Glomerular capillary lumina are patent. Glomerular basement membranes are normal in thickness and contour. One (1) glomerulus (best seen on level 16) has intra capillary foam cells and swelling of overlying glomerular epithelial cells. The predominant findings involve the tubulointerstitial compartment. There is diffuse and severe tubular atrophy and interstitial fibrosis accompanied by patchy severe interstitial inflammation by lymphocytes, monocytes, scattered plasma cells, and scattered neutrophils and eosinophils which involves ~70% of the cortex. Scattered foci of moderate lymphocytic and neutrophilic tubulitis are seen in atrophic and partially atrophic tubules. Numerous degenerating WBC casts are seen, elsewhere, tubules are distended by hyaline casts, some of which have a thyroidized-like appearance. The inflamed interstitium protrudes into some tubular lumina forming lympho-epithelial islands. There is abrupt transition between inflamed and scarred areas of cortex and uninvolved areas, in which proximal tubules have intact brush borders. Vascular sampling is limited but none the less notable for moderate arteriosclerosis and severe arteriosclerosis with mural hyalinosis. IMMUNOFLUORESCENCE (PROCEDURE) Interpretation: GLOMERULI TUBULES INTERSTITIUM VESSELS IgG 1 glom neg neg neg neg (+25 sclerotic) IgM 1 glom 1+ neg neg neg Global tuft IgA 1 glom neg casts 2-3+ neg neg C3 1 glom 1+ neg neg neg Global tuft C1 1 glom neg neg neg neg FBGN 1 glom neg neg neg neg ALB 1 glom neg neg neg neg KAPPA 1 glom neg casts 2+ neg neg LAMBDA 1 glom neg casts 2+ neg neg Positive and negative controls show appropriate reactivity. ELECTRON MICROSCOPY (Procedure) Three (3) glomeruli are identified in block B, 2 of which are globally sclerotic and 1 of which has a segmental scar characterized by wrinkling and thickening of glomerular basement membranes, entrapped hyaline and foam cells, and podocyte swelling, detachment and effacement. In the non-scarred portion of the tuft, glomerular capillary lumina are patent. Mesangial areas display mild increase in matrix containing il-defined electron dense deposits. Endothelial cell fenestrations are preserved. Glomerular basement membranes are mildly thickened by matrix material. Podocytes display 70% foot process effacement, mostly in the scarred portions of the tuft. No endothelial tubuloreticular inclusions are seen. There is extensive tubulointerstitial scarring and inflammation. Lipid droplets and angulated spaces typical of cholesterol crystals are seen in some tubular epithelial cells. Rare interstitial foam cells are noted. Vessels are not photographed. Gross Description Received in saline labeled "right renal biopsy," are 3 carlson, cylindrical portions of soft tissue averaging 1.5 cm in length and 0.1 cm in diameter. The specimens are divided, placed in to 10% buffered formalin, Ryan fixative and glutaraldehyde. The specimen is sent to [facility] for further studies. 10/15/2018 [facility]10/15/2018
== END 2018-10-15 14:52 | disposition home or self-care (01) | DRG 683 ==
LOC: JER 15:41 → JERBED 17:32 → J4W 20:16
PROVIDERS: ATTEND Internal Medicine
PROC: 0TB03ZX Excision of Right Kidney, Percutaneous Approach, Diagnostic (ICD-10-PCS; principal; 2018-10-15)
DX: N17.9 Acute kidney failure, unspecified (principal); I42.8 Other cardiomyopathies; I13.0 Hypertensive heart and chronic kidney disease with heart failure and stage 1 through stage 4 chronic kidney disease, or unspecified chronic kidney disease; E78.00 Pure hypercholesterolemia, unspecified; N18.4 Chronic kidney disease, stage 4 (severe); J44.9 Chronic obstructive pulmonary disease, unspecified; N40.0 Benign prostatic hyperplasia without lower urinary tract symptoms; E87.5 Hyperkalemia; M54.5 Low back pain; K42.9 Umbilical hernia without obstruction or gangrene; M47.896 Other spondylosis, lumbar region; D63.1 Anemia in chronic kidney disease; F17.210 Nicotine dependence, cigarettes, uncomplicated; M10.9 Gout, unspecified; I50.9 Heart failure, unspecified
CPT/HCPCS: 36415; 50200; 71046-TC-FY; 76098-TC-FY; 76775-TC; 76856-TC; 76942-TC; 80048; 80053; 80061; 81003; 81015; 82436; 82550; 82553; 82570; 83036; 83520; 83721; 83735; 83880; 84100; 84132; 84133; 84155; 84156; 84165; 84300; 84443; 84484; 84550; 85025; 85027; 85610; 86038; 86162; 86256; 86593; 86708; 87086; 87205; 87389; 87899; 88300-TC; 93005; 93010; 93306-TC; 93971-TC; 94640; 99285-25; J1644; J7030

== ENCOUNTER 2018-12-22 06:17 | Inpatient (IN) | payer OTHER ==
--- NOTE | 2018-12-22 08:15 | HP ---
Satellite [facility] - Chief Complaint History of Present Illness: 58 year old man with renal failure needs PD catheter placed for planned dialysis. History Source: Patient Limitations to Obtaining History: No Limitations - Past Medical History Allergies/Adverse Reactions: Allergies Allergy/AdvReac Type Severity Reaction Status Date / Time No Known Allergies Allergy Verified 12/21/18 09:31 Cardiovascular: Yes: CHF, HTN, Hyperlipdemia Pulmonary: Yes: COPD Gastrointestinal: Yes: Diverticulitis, Other (umbillical hernia) Renal/: Yes: Renal Failure (stage 4), BPH Musculoskeletal: Yes: Chronic low back pain - Current Medications Current Medications: Home Medications Medication Instructions Recorded Calcitriol [Calcitriol -] 0.25 mcg PO DAILY 03/19/18 Carvedilol [Coreg -] 25 mg PO BID 03/19/18 Furosemide [Lasix] 40 mg PO BID PRN 03/19/18 Simvastatin 20 mg PO HS 03/19/18 Tamsulosin HCl [Flomax] 0.4 mg PO HS 03/19/18 Amlodipine Besylate [Norvasc -] 5 mg PO DAILY #30 tablet 03/25/18 Hydralazine HCl 25 mg PO BID 10/12/18 Calcium Acetate [Phoslo -] 667 mg PO TIDCM #45 capsule 10/15/18 Ranitidine HCl [Zantac] 150 mg PO PRN 12/22/18 Satellite Physical Exam - Physical Examination Vital Signs: Vital Signs Period Temp Pulse Resp BP Sys/Cannon Pulse Ox Last 24 Hr 98.5 F-98.5 F 122-122 22-22 132-132/82-82 96 General Appearance: Obese ENT: Clear Lung: Clear to auscultation Heart: Regular rate & rhythm Abdomen: Soft, Other (Umbilical hernia) Extremities: No edema Satellite Impression/Plan - Impression/Plan Impression: Renal failure, umbilical hernia Operative Procedure: Laparoscopy, placement PD catheter, repair umbilical hernia Date to be Performed: 12/22/18
[2018-12-22] MEDS ORDERED: MIDAZOLAM HCL 2 MG/2 ML SINGLE DOSE VIAL ONE ×2 (08:25)
[2018-12-22] MEDS ORDERED: fentaNYL CITRATE 250 MCG/5 ML VIAL ONE (08:31)
[2018-12-22] MEDS ORDERED: PROPOFOL 20 ML ONE ×2 (08:32)
[2018-12-22] MEDS ORDERED: ROCURONIUM BROMIDE 50 MG/5 ML VIAL ONE ×2 (08:34→08:36)
[2018-12-22] MEDS ORDERED: ceFAZolin SODIUM 1 GM VIAL IVPB ONE (08:35)
[2018-12-22] MEDS ORDERED: BUPIVACAINE HCL/PF (5 MG/ML) 30 ML VIAL IJ ONE (08:52)
[2018-12-22] MEDS ORDERED: NEOSTIGMINE METHYLSULFATE 0.5 MG/ML - 10 ML MDV ONE (10:20)
--- NOTE | 2018-12-22 10:36 | OP ---
Operative Note - Note: Operative Date: 12/22/18 Pre-Operative Diagnosis: Renal failure, umbilical hernia Operation: Laparoscopy. Lysis of adhesions. Placement peritoneal dialysis catheter. Open repair umbilical hernia. Findings: Adhesion of omentum to umbilicus. Incarcerated properitoneal and omental fat in hernia sac. Implants: Curled cuffed Tenckhoff catheter. Medium Ventralex mesh Post-Operative Diagnosis: Same as Pre-op Surgeon: Daniel Hassan Animal Ride Manager: Juan Alberto Arevalo Anesthesiologist/CORONER FORENSIC TECHNICIAN: Silvina Fairbanks MD Anesthesia: General Specimens Removed: Hernia sac and contents Estimated Blood Loss (mls): 20
--- NOTE | 2018-12-22 11:46 | SURG ---
Surgery Service Aide Note Service Aide: Juan Alberto Arevalo PA-C (Suzy) Date of Service: 12/22/18 Diagnosis: Renal failure, umbilical hernia Procedure: Laparoscopy. Lysis of adhesions. Placement peritoneal dialysis catheter. Open repair umbilical hernia. I was present for the entirety of the operative procedure. For further detail, please refer to operative report. Visit type - Case Type Case Type: Scheduled - Emergency Emergency Visit: No - New patient This patient is new to me today: Yes Date on this admission: 12/22/18 - Critical Care Critical Care patient: No
[2018-12-22] MEDS ORDERED: FUROSEMIDE 40 MG TABLET (FP) PO PRN ×2 (11:48→16:00)
[2018-12-22] MEDS ORDERED: RANITIDINE HCL 150 MG TABLET (FP) PO SCH (12:00)
[2018-12-22] MEDS ORDERED: ALBUTEROL SO4 2.5/IPRATROPIUM 0.5 INH SOL 3 ML VIAL.NEB. NEB PRN (12:08)
--- NOTE | 2018-12-22 12:09 | HP ---
CHIEF COMPLAINT: peritoneal dialysis cath placement and umblical hernia PCP: dr hammond HISTORY OF PRESENT ILLNESS: 58-year-old male, history of alcohol abuse, CHF on Lasix, HTN, CKD, COPD, BPH, was admitted in hospital for elective peritonial dialysis cath placement and umblical hernia repair. Post op pt has respiratory difficulty and was reintubated. Pt was later again extubated and was kept in PACU for recovery. Pt got about 500ml of fluid in OR during surgery and also got IV lasix julia on. Pt seen in PACU pt is in oxygen tent at 100 % maintaing a saturation of 99, awake and alert. Pt states he is feeling little better. PACU course was notable for: (1)cbc, cmp, ekg, trop i , cxr Recent Travel: no PAST MEDICAL HISTORY: as above PAST SURGICAL HISTORY: Social History: Smoking: current smoker Alcohol:last drink a week ago Drugs: no Family History: not relevant Allergies No Known Allergies Allergy (Verified 12/21/18 09:31) HOME MEDICATIONS: Home Medications Medication Instructions Recorded Calcitriol [Calcitriol -] 0.25 mcg PO DAILY 03/19/18 Carvedilol [Coreg -] 25 mg PO BID 03/19/18 Furosemide [Lasix] 40 mg PO BID PRN 03/19/18 Simvastatin 20 mg PO HS 03/19/18 Tamsulosin HCl [Flomax] 0.4 mg PO HS 03/19/18 Amlodipine Besylate [Norvasc -] 5 mg PO DAILY #30 tablet 03/25/18 Hydralazine HCl 25 mg PO BID 10/12/18 Calcium Acetate [Phoslo -] 667 mg PO TIDCM #45 capsule 10/15/18 Ranitidine HCl [Zantac] 150 mg PO PRN 12/22/18 REVIEW OF SYSTEMS CONSTITUTIONAL: Absent: fever, chills, diaphoresis, generalized weakness, malaise, loss of appetite, weight change CARDIOVASCULAR: Absent: chest pain, syncope, palpitations, irregular heart rate, lightheadedness , peripheral edema RESPIRATORY: Absent: cough, shortness of breath, dyspnea with exertion, GASTROINTESTINAL: Absent: abdominal distension, nausea, vomiting, diarrhea, constipation, GENITOURINARY: Absent: dysuria, frequency, urgency, hesitancy, hematuria, flank pain, genital pain MUSCULOSKELETAL: Absent: myalgia, arthralgia, NEUROLOGIC: Absent: headache, focal weakness or paresthesias, PSYCHIATRIC: Absent: anxiety, PHYSICAL EXAMINATION Vital Signs - 24 hr 12/22/18 12/22/18 06:50 06:59 Temperature 98.5 F 98.5 F Pulse Rate 122 H 122 H Respiratory 22 H 22 H Rate Blood Pressure 132/82 132/82 O2 Sat by Pulse 96 Oximetry (%) GENERAL: Awake, alert, and fully oriented, mild respiratory distress. but goes back to sleep HEAD: Normal with no signs of trauma. EARS, NOSE, THROAT:Moist mucous membranes. NECK: Normal range of motion, supple without lymphadenopathy, JVD, or masses. LUNGS: Breath sounds equal, clear to auscultation bilaterally. No wheezes, and no crackles. No accessory muscle use.on oxygen tent 100% HEART: Regular rate and rhythm, normal S1 and S2 without murmur, rub or gallop. ABDOMEN: Soft, nontender, distended, normoactive bowel sounds, no guarding, no rebound, no masses. dressing present on abdomen. dull to percuss MUSCULOSKELETAL: Normal range of motion at all joints. No bony deformities or tenderness. UPPER EXTREMITIES: 2+ pulses, warm, well-perfused. No cyanosis. No clubbing. No peripheral edema. LOWER EXTREMITIES: well-perfused. No calf tenderness. No peripheral edema. NEUROLOGICAL: Cranial nerves II-XII intact. Normal speech. Normal gait. PSYCHIATRIC: Cooperative. Good eye contact. SKIN: Warm, dry, Laboratory Results - last 24 hr 12/22/18 06:39 Potassium 5.2 H Home Medications Medication Instructions Recorded Calcitriol [Calcitriol -] 0.25 mcg PO DAILY 03/19/18 Carvedilol [Coreg -] 25 mg PO BID 03/19/18 Furosemide [Lasix] 40 mg PO BID PRN 03/19/18 Simvastatin 20 mg PO HS 03/19/18 Tamsulosin HCl [Flomax] 0.4 mg PO HS 03/19/18 Amlodipine Besylate [Norvasc -] 5 mg PO DAILY #30 tablet 03/25/18 Hydralazine HCl 25 mg PO BID 10/12/18 Calcium Acetate [Phoslo -] 667 mg PO TIDCM #45 capsule 10/15/18 Ranitidine HCl [Zantac] 150 mg PO PRN 12/22/18 Current Medications Generic Name Dose Route Start Last Admin Trade Name Freq PRN Reason Stop Dose Admin Acetaminophen 1,000 mg 12/22/18 11:27 Ofirmev Injection - IVPB Q6H PRN PAIN OR FEVER Albuterol/Ipratropium 1 amp 12/22/18 12:08 Duoneb - NEB Q6H PRN SHORTNESS OF BREATH Amlodipine Besylate 5 mg 12/23/18 10:00 Norvasc - PO DAILY WANDA Calcitriol 0.25 mcg 12/23/18 10:00 Rocaltrol - PO DAILY WANDA Calcium Acetate 667 mg 12/22/18 12:00 Phoslo - PO TIDCM WANDA Carvedilol 25 mg 12/22/18 22:00 Coreg - PO BID WANDA Furosemide 40 mg 12/22/18 16:00 Lasix - PO BID PRN Edema Heparin Sodium (Porcine) 5,000 unit 12/22/18 22:00 Heparin - SQ Q8H-IV WANDA Hydralazine HCl 25 mg 12/22/18 22:00 Apresoline - PO BID WANDA Non-Formulary Medication 20 mg 12/22/18 22:00 Simvastatin [Simvastatin] PO HS WANDA Ranitidine HCl 150 mg 12/22/18 12:00 Zantac - PO PRN WANDA Tamsulosin HCl 0.4 mg 12/22/18 22:00 Flomax - PO HS WANDA ASSESSMENT/PLAN: post op acute respiratory distress could be multifactorial, copd, fluid overload , obesity hypoventilation syndrome. keep head end elevated o2 to keep spo2 > 90 duoneb prn cxr blood work cbc, cmp, tropi ekg: reviewed not new st changes monitor vitals monitor intake/ output case discussed with dr rogel [phone]. we will car her agin after 2-3 hours once all the labs are out. Post op umblical hernia repair and peritoneal dialysis cath placement POD 0 pain control. npo for now untill pt wakes up comlpeteley and surgery on case ESRD still makes urine got IV lasix in or peritoneal dialysis cath placed today nephrology consult HTN continue home meds amlodipine coreg hydralazine Hyperkalemia k 5.2 no ekg changes repeat potassium cardiac monitoring h/o chf/ hld/htn lasix 40 mg po bid echo cardiology consult h/o copd no wheezing on exam duoneb prn chronic pain issues/ lumbar disc herniation continue homemeds avoid nsaid bph continue flomax Fluid : hold IV fluid electrolyte; serum potasium nutrition: renal diet once approved from surgery dvt pro; heparin gi pro ; zantac dispo; tele
[2018-12-22] MEDS ORDERED: ACETAMINOPHEN INJECTION 100 ML IVPB ONE (12:13)
[2018-12-22] MEDS: ACETAMINOPHEN 1000 MG/100 ML VIAL (NON FORMULARY) IVPB PRN ×2 (12:15→18:17)
--- NOTE | 2018-12-22 12:41 | CONSULT ---
Consultation: REQUESTING PROVIDER: CHIEF COMPLAINT: peritoneal dialysis cath placement and umblical hernia PCP: dr hammond HISTORY OF PRESENT ILLNESS: 58-year-old male, history of alcohol abuse, CHF on Lasix, HTN, CKD, COPD, BPH, was admitted in hospital for elective peritonial dialysis cath placement and umblical hernia repair. Post op pt has respiratory difficulty and was reintubated. Pt was later again extubated and was kept in PACU for recovery. Pt got about 500ml of fluid in OR during surgery and also got IV lasix julia on. Pt seen in PACU pt is in oxygen tent at 100 % maintaing a saturation of 99, awake and alert. Pt states he is feeling little better. PACU course was notable for: (1)cbc, cmp, ekg, trop i , cxr Recent Travel: no PAST MEDICAL HISTORY: as above PAST SURGICAL HISTORY: Social History: Smoking: current smoker Alcohol:last drink a week ago Drugs: no Family History: not relevant Allergies No Known Allergies Allergy (Verified 12/21/18 09:31) HOME MEDICATIONS: Home Medications Medication Instructions Recorded Calcitriol [Calcitriol -] 0.25 mcg PO DAILY 03/19/18 Carvedilol [Coreg -] 25 mg PO BID 03/19/18 Furosemide [Lasix] 40 mg PO BID PRN 03/19/18 Simvastatin 20 mg PO HS 03/19/18 Tamsulosin HCl [Flomax] 0.4 mg PO HS 03/19/18 Amlodipine Besylate [Norvasc -] 5 mg PO DAILY #30 tablet 03/25/18 Hydralazine HCl 25 mg PO BID 10/12/18 Calcium Acetate [Phoslo -] 667 mg PO TIDCM #45 capsule 10/15/18 Ranitidine HCl [Zantac] 150 mg PO PRN 12/22/18 REVIEW OF SYSTEMS CONSTITUTIONAL: Absent: fever, chills, diaphoresis, generalized weakness, malaise, loss of appetite, weight change CARDIOVASCULAR: Absent: chest pain, syncope, palpitations, irregular heart rate, lightheadedness , peripheral edema RESPIRATORY: Absent: cough, shortness of breath, dyspnea with exertion, GASTROINTESTINAL: Absent: abdominal distension, nausea, vomiting, diarrhea, constipation, GENITOURINARY: Absent: dysuria, frequency, urgency, hesitancy, hematuria, flank pain, genital pain MUSCULOSKELETAL: Absent: myalgia, arthralgia, NEUROLOGIC: Absent: headache, focal weakness or paresthesias, PSYCHIATRIC: Absent: anxiety, PHYSICAL EXAMINATION Vital Signs - 24 hr 12/22/18 12/22/18 06:50 06:59 Temperature 98.5 F 98.5 F Pulse Rate 122 H 122 H Respiratory 22 H 22 H Rate Blood Pressure 132/82 132/82 O2 Sat by Pulse 96 Oximetry (%) GENERAL: Awake, alert, and fully oriented, mild respiratory distress. but goes back to sleep HEAD: Normal with no signs of trauma. EARS, NOSE, THROAT:Moist mucous membranes. NECK: Normal range of motion, supple without lymphadenopathy, JVD, or masses. LUNGS: Breath sounds equal, clear to auscultation bilaterally. No wheezes, and no crackles. No accessory muscle use.on oxygen tent 100% HEART: Regular rate and rhythm, normal S1 and S2 without murmur, rub or gallop. ABDOMEN: Soft, nontender, distended, normoactive bowel sounds, no guarding, no rebound, no masses. dressing present on abdomen. dull to percuss MUSCULOSKELETAL: Normal range of motion at all joints. No bony deformities or tenderness. UPPER EXTREMITIES: 2+ pulses, warm, well-perfused. No cyanosis. No clubbing. No peripheral edema. LOWER EXTREMITIES: well-perfused. No calf tenderness. No peripheral edema. NEUROLOGICAL: Cranial nerves II-XII intact. Normal speech. Normal gait. PSYCHIATRIC: Cooperative. Good eye contact. SKIN: Warm, dry, Laboratory Results - last 24 hr 12/22/18 06:39 Potassium 5.2 H Home Medications Medication Instructions Recorded Calcitriol [Calcitriol -] 0.25 mcg PO DAILY 03/19/18 Carvedilol [Coreg -] 25 mg PO BID 03/19/18 Furosemide [Lasix] 40 mg PO BID PRN 03/19/18 Simvastatin 20 mg PO HS 03/19/18 Tamsulosin HCl [Flomax] 0.4 mg PO HS 03/19/18 Amlodipine Besylate [Norvasc -] 5 mg PO DAILY #30 tablet 03/25/18 Hydralazine HCl 25 mg PO BID 10/12/18 Calcium Acetate [Phoslo -] 667 mg PO TIDCM #45 capsule 10/15/18 Ranitidine HCl [Zantac] 150 mg PO PRN 12/22/18 Current Medications Generic Name Dose Route Start Last Admin Trade Name Freq PRN Reason Stop Dose Admin Acetaminophen 1,000 mg 12/22/18 11:27 Ofirmev Injection - IVPB Q6H PRN PAIN OR FEVER Albuterol/Ipratropium 1 amp 12/22/18 12:08 Duoneb - NEB Q6H PRN SHORTNESS OF BREATH Amlodipine Besylate 5 mg 12/23/18 10:00 Norvasc - PO DAILY WANDA Calcitriol 0.25 mcg 12/23/18 10:00 Rocaltrol - PO DAILY WANDA Calcium Acetate 667 mg 12/22/18 12:00 Phoslo - PO TIDCM WANDA Carvedilol 25 mg 12/22/18 22:00 Coreg - PO BID WANDA Furosemide 40 mg 12/22/18 16:00 Lasix - PO BID PRN Edema Heparin Sodium (Porcine) 5,000 unit 12/22/18 22:00 Heparin - SQ Q8H-IV WANDA Hydralazine HCl 25 mg 12/22/18 22:00 Apresoline - PO BID WANDA Non-Formulary Medication 20 mg 12/22/18 22:00 Simvastatin [Simvastatin] PO HS WANDA Ranitidine HCl 150 mg 12/22/18 12:00 Zantac - PO PRN WANDA Tamsulosin HCl 0.4 mg 12/22/18 22:00 Flomax - PO HS WANDA ASSESSMENT/PLAN: post op acute respiratory distress could be multifactorial, copd, fluid overload , obesity hypoventilation syndrome. keep head end elevated o2 to keep spo2 > 90 duoneb prn cxr blood work cbc, cmp, tropi ekg: reviewed not new st changes monitor vitals monitor intake/ output case discussed with dr rogel [phone]. we will car her agin after 2-3 hours once all the labs are out. Post op umblical hernia repair and peritoneal dialysis cath placement POD 0 pain control. npo for now untill pt wakes up comlpeteley and surgery on case ESRD still makes urine got IV lasix in or peritoneal dialysis cath placed today nephrology consult HTN continue home meds amlodipine coreg hydralazine Hyperkalemia k 5.2 no ekg changes repeat potassium cardiac monitoring h/o chf/ hld/htn lasix 40 mg po bid echo cardiology consult h/o copd no wheezing on exam duoneb prn chronic pain issues/ lumbar disc herniation continue homemeds avoid nsaid bph continue flomax Fluid : hold IV fluid electrolyte; serum potasium nutrition: renal diet once approved from surgery dvt pro; heparin gi pro ; zantac dispo; tele Visit type - Emergency Visit Emergency Visit: Yes ED Registration Date: 12/22/18 Care time: The patient presented to the Emergency Department on the above date and was hospitalized for further evaluation of their emergent condition. - New Patient This patient is new to me today: Yes Date on this admission: 12/31/18 - Critical Care Critical Care patient: No
[2018-12-22 12:43] LABS: BASO % 0.4 % (0-2.0); EOS % 1.6 % (0-4.5); HEMATOCRIT 31.8 % (35.4-49); HEMOGLOBIN 9.9 GM/dL (11.7-16.9); LYMPH % 5.5 % (8-40); MCH 27.1 pg (25.7-33.7); MCHC 31.2 g/dl (32.0-35.9); MONO % 4.8 % (3.8-10.2); NEUT % 87.7 % (42.8-82.8); PLATELET COUNT 232 K/MM3 (134-434); RBC 3.65 M/mm3 (4.00-5.60); RDW 17.1 % (11.9-15.9); WHITE BLOOD COUNT 8.9 K/mm3 (4.0-10.0)
[2018-12-22] MEDS ORDERED: ONDANSETRON 4 MG/2 ML VIAL IVPUSH PRN (12:58)
[2018-12-22 13:22] LABS: ALK PHOS 106 U/L (45-117); ANION GAP 7 MMOL/L (8-16); BILIRUBIN,TOTAL 0.4 mg/dL (0.2-1); BLOOD UREA NITROGEN 85 mg/dL (7-18); CALCIUM 7.3 mg/dL (8.5-10.1); CHLORIDE 111 mmol/L (98-107); CO2 21 mmol/L (21-32); GLUCOSE,RANDOM 110 mg/dL (74-106); SGOT/AST 6 U/L (15-37); SGPT/ALT 8 U/L (13-61); SODIUM 139 mmol/L (136-145); TOT PROT 7.4 g/dl (6.4-8.2)
--- NOTE | 2018-12-22 13:31 | EKG ---
Test Reason : Blood Pressure : / mmHG Vent. Rate : 068 BPM Atrial Rate : 068 BPM P-R Int : 174 ms QRS Dur : 092 ms QT Int : 444 ms P-R-T Axes : 074 070 048 degrees QTc Int : 472 ms NORMAL SINUS RHYTHM LOW VOLTAGE QRS SEPTAL INFARCT , AGE UNDETERMINED ABNORMAL ECG WHEN COMPARED WITH ECG OF 14-OCT-2018 09:37, NO SIGNIFICANT CHANGE WAS FOUND Confirmed by MD BRIANA, SHAYNA ([id number]) on 12/22/2018 1:30:50 PM Referred By: ALICIA SOLOMON Confirmed By:SHAYNA WARREN MD
[2018-12-22 13:32] LABS: CREATININE 14.7 mg/dL (0.55-1.3); POTASSIUM 6.3 mmol/L (3.5-5.1)
--- NOTE | 2018-12-22 13:41 | OP ---
DATE OF OPERATION: 12/22/2018 SURGEON: Daniel Hassan MD ADJUNCT [employer]HEMAT[employer] DEPARTMENT: JAMIL Arevalo PROCEDURES: Laparoscopy with lysis of adhesions. Placement of double-cuff peritoneal dialysis catheter. Repair of umbilical hernia with open and laparoscopic technique. PREOPERATIVE DIAGNOSIS: Renal failure with umbilical hernia. POSTOPERATIVE DIAGNOSIS: Renal failure with umbilical hernia. ANESTHESIA: General. ANESTHESIOLOGIST: Silvina Fairbanks MD OPERATIVE FINDINGS: There was adhesion of the omentum to the umbilical hernia. There was some excess fatty tissue along the anterior abdominal wall in the pelvis superior to the bladder. The hernia sac contained incarcerated omental and properitoneal fat which was scarred to the subcutaneous tissues. OPERATIVE PROCEDURE: Following routine patient identification, general anesthesia was induced. A Albarran catheter was placed. The abdomen was prepped with ChloraPrep. Timeout was performed. Marcaine 0.5% was infiltrated in all incision lines. A small midline incision was made in the upper abdomen and an optical port used to enter the peritoneal cavity under direct vision using a 5-mm laparoscope. Pneumoperitoneum was established with carbon dioxide to 15 mmHg and a 5-mm angled laparoscope was used throughout the case. A second 5-mm port was placed in the left abdominal wall under direct vision and then one on the right side as well. Adhesions of the omentum to the abdominal wall were divided with the LigaSure. With external pressure on the umbilicus, the fatty tissue adherent to the hernia sac was incised and divided. The fascia was freed 360-degrees around, but due to the scarring of the fatty tissue, it was not possible to resect this from a laparoscopic approach. Decision was made to do the repair open, now that the defect had been fully dissected. Therefore, a small incision was made above and to the right of the umbilicus, carried down through subcutaneous tissues under direct vision until the muscle fascia was reached. An 8-mm bladeless trocar was then advanced until the tip was seen above the peritoneum. The port was then directed toward the pelvis where it entered the abdominal cavity inferior to the umbilicus. A curled, double-cuffed , swan neck Tenckhoff catheter was then straightened with a wire and advanced through the port and deployed in the pelvis. The inner cuff was left at the level of the fascia as the 8-mm port was removed. The other end of the catheter was attached to a curved metal tunneler and passed subcutaneously onto the left abdominal wall where it exited at the previously chosen site. Excess fatty tissue above the bladder was divided with the LigaSure so as not to interfere with the function of the catheter. The Luer lock adapter was attached to the catheter and 1 liter of saline was run into the peritoneal cavity under gravity drainage after evacuation of pneumoperitoneum. This took approximately 3 minutes. The bag was dropped to the floor and drained rapidly and was capped leaving approximately 400 mL of fluid in the belly. Incision was then made around the upper edge of the umbilicus and carried into subcutaneous tissues using cautery for hemostasis. The hernia sac was entered and the contents freed with cautery until the umbilicus could be turned inside out and then the adherent fatty tissue was resected with care not to damage the skin. A medium Ventralex mesh was then placed into the peritoneal cavity and pulled hard against the anterior abdominal wall. Several tacks were placed to hold it in position and this was reinforced with the 2-0 Vicryl sutures around the edges of the mesh and fascia. Pneumoperitoneum was then re-established and additional tacks placed around the edges of the mesh with care not to damage the peritoneal dialysis catheter. Pneumoperitoneum was again evacuated. Saline 50 mL was injected through the catheter to check it and was withdrawn without difficulty. The catheter was then filled with heparin-saline solution and capped. All incisions were then closed with interrupted sutures of 3-0 Vicryl in the subcutaneous tissues and running subcuticular sutures of 4-0 Biosyn on the skin. Sterile dressings were applied. The patient was taken to the recovery room in stable condition. Camilo [id number] MTDArnel
[2018-12-22] MEDS ORDERED: ALBUTEROL SO4 0.083% IH SOL 2.5 MG/3 ML VIAL.NEB. NEB ONE (13:48)
[2018-12-22] MEDS: ALBUTEROL SO4 0.083% IH SOL 2.5 MG/3 ML VIAL.NEB. NEB SCH ×4 (13:50→14:25)
--- NOTE | 2018-12-22 15:20 | CON.CARD ---
Cardiology Consult (text) - Consultation Consultation Note: Chief Complaint: elective hernia surgery and PD catheter placement. History of Present Illness: 58M h/o EtOH abuse, CHF,, HTN, CKD, COPD here for elective hernia surgery and PD catheter placement. Surgery completed today. Post op was extubated but had resp distress so re-intubated, given iv lasix, now extubated again and resp status improved. Pt reports feeling well except for some surgical site pain. No cp sob palps dizzy loc pnd orthopnea le edema. Sees me for cardio. - Past Medical History Cardio/Vascular: Yes: CHF, HTN, Hyperlipdemia Pulmonary: Yes: COPD Gastrointestinal: Yes: Diverticulitis, Other (umbillical hernia) Renal/: Yes: Renal Failure (stage 4), BPH Psych: Yes: Addictions Musculoskeletal: Yes: Chronic low back pain - Past Surgical History Past Surgical History: Yes: None - Alcohol/Substance Use Hx Alcohol Use: No Number of Drinks Daily: 4 (last drink 03/17) History of Substance Use: reports: None - Smoking History Smoking history: Current some day smoker Have you smoked in the past 12 months: Yes - Social History History of Recent Travel: No Home Medications - Allergies Allergies/Adverse Reactions: Allergies Allergy/AdvReac Type Severity Reaction Status Date / Time No Known Allergies Allergy Verified 12/21/18 09:31 - Home Medications Ambulatory Orders Calcitriol [Calcitriol -] 0.25 mcg PO DAILY 03/19/18 Carvedilol [Coreg -] 25 mg PO BID 03/19/18 Furosemide [Lasix] 40 mg PO BID PRN 03/19/18 Simvastatin 20 mg PO HS 03/19/18 Tamsulosin HCl [Flomax] 0.4 mg PO HS 03/19/18 Amlodipine Besylate [Norvasc -] 5 mg PO DAILY #30 tablet 03/25/18 Hydralazine HCl 25 mg PO BID 10/12/18 Calcium Acetate [Phoslo -] 667 mg PO TIDCM #45 capsule 10/15/18 Ranitidine HCl [Zantac] 150 mg PO PRN 12/22/18 Family Disease History - Family Disease History Family Disease History: Diabetes: Mother, Sister (ckd), Heart Disease: Mother, Sister Review of Systems - Review of Systems Constitutional: reports: No Symptoms Eyes: reports: No Symptoms HENT: reports: No Symptoms Neck: reports: No Symptoms Cardiovascular: reports: No Symptoms Respiratory: reports: No Symptoms Gastrointestinal: reports: No Symptoms Genitourinary: reports: No Symptoms Musculoskeletal: reports: No Symptoms Integumentary: reports: No Symptoms Neurological: reports: No Symptoms Endocrine: reports: No Symptoms Hematology/Lymphatic: reports: No Symptoms Psychiatric: reports: No Symptoms Vital Signs: Vital Signs Period Temp Pulse Resp BP Sys/Cannon Pulse Ox Last 24 Hr 97.6 F-98.5 F 63-122 14-22 114-165/71-96 94-99 Constitutional: Yes: No Distress, Calm Eyes: Yes: Conjunctiva Clear HENT: Yes: Atraumatic, Normocephalic Neck: Yes: Supple, Trachea Midline Respiratory: Yes: Regular, CTA Bilaterally Gastrointestinal: Yes: Normal Bowel Sounds, Soft Cardiovascular: Yes: Regular Rate and Rhythm Heart Sounds: Yes: S1, S2 Extremities: No: Cold Edema: no Peripheral Pulses: 2+ Left Doralis Pedis, 2+ Right Dorsalis Pedis Integumentary: No: Jaundice diaphoresis Neurological: Yes: Alert, Oriented Psychiatric: No: Agitated - Other Data Labs, Other Data: Laboratory Last Values WBC 8.9 K/mm3 (4.0-10.0) 12/22/18 12:22 RBC 3.65 M/mm3 (4.00-5.60) L 12/22/18 12:22 Hgb 9.9 GM/dL (11.7-16.9) L 12/22/18 12:22 Hct 31.8 % (35.4-49) L 12/22/18 12:22 MCV 87.0 fl (80-96) 12/22/18 12:22 MCH 27.1 pg (25.7-33.7) 12/22/18 12:22 MCHC 31.2 g/dl (32.0-35.9) L 12/22/18 12:22 RDW 17.1 % (11.9-15.9) H 12/22/18 12:22 Plt Count 232 K/MM3 (134-434) 12/22/18 12:22 MPV 8.0 fl (7.5-11.1) 12/22/18 12:22 Absolute Neuts (auto) 7.8 K/mm3 (1.5-8.0) 12/22/18 12:22 Neutrophils % 87.7 % (42.8-82.8) H D 12/22/18 12:22 Lymphocytes % 5.5 % (8-40) L D 12/22/18 12:22 Monocytes % 4.8 % (3.8-10.2) 12/22/18 12:22 Eosinophils % 1.6 % (0-4.5) 12/22/18 12:22 Basophils % 0.4 % (0-2.0) 12/22/18 12:22 Nucleated RBC % 0 % (0-0) 12/22/18 12:22 Sodium 139 mmol/L (136-145) 12/22/18 11:41 Potassium 6.3 mmol/L (3.5-5.1) H* 12/22/18 11:41 Chloride 111 mmol/L (98-107) H 12/22/18 11:41 Carbon Dioxide 21 mmol/L (21-32) 12/22/18 11:41 Anion Gap 7 MMOL/L (8-16) L 12/22/18 11:41 BUN 85 mg/dL (7-18) H 12/22/18 11:41 Creatinine 14.7 mg/dL (0.55-1.3) H* 12/22/18 11:41 Est GFR (CKD-EPI)AfAm 3.69 12/22/18 11:41 Est GFR (CKD-EPI)NonAf 3.18 12/22/18 11:41 Random Glucose 110 mg/dL (74-106) H 12/22/18 11:41 Calcium 7.3 mg/dL (8.5-10.1) L 12/22/18 11:41 Total Bilirubin 0.4 mg/dL (0.2-1) 12/22/18 11:41 AST 6 U/L (15-37) L 12/22/18 11:41 ALT 8 U/L (13-61) L 12/22/18 11:41 Alkaline Phosphatase 106 U/L (45-117) 12/22/18 11:41 Creatine Kinase 138 U/L (26-308) 12/22/18 11:41 Troponin I < 0.02 ng/ml (0.00-0.05) 12/22/18 11:41 Total Protein 7.4 g/dl (6.4-8.2) 12/22/18 11:41 Albumin 3.0 g/dl (3.4-5.0) L 12/22/18 11:41 echo 08/2017 nl LV/RV, no significant valvular pathology echo 10/2018 nl LV/RV function, mild MR, mild TR, mild AR, mild dilation of ao root mibi 08/2017 nl EF, no ischemia EKG: sinus, nl intervals, no ischemic changes CXR: no congestion a/p: 58M h/o EtOH abuse, CHF, HTN, CKD, COPD here for elective hernia surgery and PD catheter placement. resp distress, diastolic chf: -Post op was extubated but had resp distress so re-intubated, given iv lasix, now extubated again and resp status improved. Seems he had some vol overload post op, now improved. Continue po lasix for now, cxr shows no congestion. CKD - s/p PD catheter today - hyperkalemia now, no ecg changes, plans per renal HTN - cont current meds, norvasc, coreg, hydralazine HLD - cont statin
--- NOTE | 2018-12-22 16:21 | PN ---
Teaching Attending Note Name of Resident: Mark Batista ATTENDING PHYSICIAN STATEMENT I saw and evaluated the patient. I reviewed the resident's note and discussed the case with the resident. I agree with the resident's findings and plan as documented with exceptions below. SUBJECTIVE: 58 yom with PMhx of ESRD, Diastolic dysfunction, prior h/oTHC/cocaine use/ cardiomyopathy, alcohol abuse,HTN, COPD, BPH, was admitted for elective peritoneal dialysis catheter placement/Laparoscopic FAWN/Open umbilical hernia repair today. Post operative course was complicated by hypoxia/respiratory distress, requiring re-intubation. We were consulted to assist in management. patient extubated on 100% tent mask in PACU, minimal responses, denies pain currently, but not participating in the interview. 12 point ROS attempted but limited. He received 500 ml NS intra-op, last lasix 40 mg IV for respiratory distress. OBJECTIVE: Vital Signs Period Temp Pulse Resp BP Sys/Cannon Pulse Ox Last 24 Hr 97.6 F-98.5 F 63-122 14-22 114-165/71-96 94-99 Intake & Output 12/19/18 12/20/18 12/21/18 12/22/18 23:59 23:59 23:59 23:59 Intake Total 500 Output Total 85 Balance 415 Weight 245 lb 245 lb GENERAL: sleepy but arousable, on 100% tent mask, minimal participation but no acute distress HEAD: Normal with no signs of trauma. EYES: Pupils equal, round and reactive to light, extraocular movements intact, sclera anicteric, conjunctiva clear. No lid lag. EARS, NOSE, THROAT: Ears normal, nares patent, oropharynx clear without exudates. Moist mucous membranes. NECK: soft, supple. LUNGS: few left basilar rales, limited exam, no wheezing appreciated HEART: Regular rate and rhythm, normal S1 and S2 ABDOMEN: Soft, distended, laparoscopic sites clean, lower abdominal dressing clean with no active bleed, able to palpate peritoneal dialysis catheter, distended, tympanic upper abdomen, dull to percussion lower abdomen MUSCULOSKELETAL: Normal range of motion at all joints. No bony deformities or tenderness. No CVA tenderness. UPPER EXTREMITIES: 2+ pulses, warm, well-perfused. No cyanosis. No clubbing. No peripheral edema. LOWER EXTREMITIES: trace pedal edema NEUROLOGICAL: Sleepy but arousable, facial symmetry, moves all extremities, further exam limited PSYCHIATRIC: sleepy but arousable, not participating in the interview SKIN: Warm, dry, normal turgor, no rashes or lesions noted, normal capillary refill. Home Medications Medication Instructions Recorded Calcitriol [Calcitriol -] 0.25 mcg PO DAILY 03/19/18 Carvedilol [Coreg -] 25 mg PO BID 03/19/18 Furosemide [Lasix] 40 mg PO BID PRN 03/19/18 Simvastatin 20 mg PO HS 03/19/18 Tamsulosin HCl [Flomax] 0.4 mg PO HS 03/19/18 Amlodipine Besylate [Norvasc -] 5 mg PO DAILY #30 tablet 03/25/18 Hydralazine HCl 25 mg PO BID 10/12/18 Calcium Acetate [Phoslo -] 667 mg PO TIDCM #45 capsule 10/15/18 Ranitidine HCl [Zantac] 150 mg PO PRN 12/22/18 Active Medications Acetaminophen (Ofirmev Injection -) 1,000 mg IVPB Q6H PRN PRN Reason: PAIN OR FEVER Last Admin: 12/22/18 12:15 Dose: 1,000 mg Albuterol/Ipratropium (Duoneb -) 1 amp NEB Q6H PRN PRN Reason: SHORTNESS OF BREATH Amlodipine Besylate (Norvasc -) 5 mg PO DAILY WANDA Atorvastatin Calcium (Lipitor -) 10 mg PO HS [facility] Calcitriol (Rocaltrol -) 0.25 mcg PO DAILY [facility] Calcium Acetate (Phoslo -) 667 mg PO TIDCM [facility] Carvedilol (Coreg -) 25 mg PO BID WANDA Docusate Sodium (Colace -) 100 mg PO BID WANDA Fentanyl (Sublimaze Injection -) 50 mcg IVPUSH [id number] PRN PRN Reason: PAIN-PACU ORDER X 4 DOSES ONLY Furosemide (Lasix -) 40 mg PO BID WANDA Heparin Sodium (Porcine) (Heparin -) 5,000 unit SQ Q8H-IV WANDA Hydralazine HCl (Apresoline -) 25 mg PO BID WANDA Ondansetron HCl (Zofran Injection) 4 mg IVPUSH Q6H PRN PRN Reason: NAUSEA AND/OR VOMITING Oxycodone HCl (Roxicodone -) 5 mg PO Q6H PRN PRN Reason: PAIN LEVEL 7 - 10 Ranitidine HCl (Zantac -) 150 mg PO PRN WANDA Tamsulosin HCl (Flomax -) 0.4 mg PO HS WANDA Laboratory Results - last 24 hr 12/22/18 12/22/18 12/22/18 06:39 11:41 12:22 WBC 8.9 RBC 3.65 L Hgb 9.9 L Hct 31.8 L MCV 87.0 MCH 27.1 MCHC 31.2 L RDW 17.1 H Plt Count 232 MPV 8.0 Absolute Neuts (auto) 7.8 Neutrophils % 87.7 H D Lymphocytes % 5.5 L D Monocytes % 4.8 Eosinophils % 1.6 Basophils % 0.4 Nucleated RBC % 0 Sodium 139 Potassium 5.2 H 6.3 H* Chloride 111 H Carbon Dioxide 21 Anion Gap 7 L BUN 85 H Creatinine 14.7 H* Est GFR (CKD-EPI)AfAm 3.69 Est GFR (CKD-EPI)NonAf 3.18 Random Glucose 110 H Calcium 7.3 L Total Bilirubin 0.4 AST 6 L ALT 8 L Alkaline Phosphatase 106 Creatine Kinase 138 Troponin I < 0.02 Total Protein 7.4 Albumin 3.0 L CXR results and images reviewed EKG NSR, QS in V1-V2 ASSESSMENT AND PLAN: 58 yom with PMhx of ESRD, Diastolic dysfunction, prior h/oTHC/cocaine use/ cardiomyopathy, alcohol abuse,HTN, COPD, BPH, admitted for elective peritoneal dialysis catheter placement/Laparoscopic FAWN/Open umbilical hernia repair today now with dyspnea/hypoxia and hyperkalemia -Acute hypoxic respiratory failure, suspect from acute diastolic HF exacerbation in the setting volume resuscitation, compounded by COPD+/- RAJI -Hyperkalemia -ESRD, s/p peritoneal HD catheter today -Diastolic dysfunction -HTN -COPD -Alcohol abuse -Prior h/o THC/Cocaine use -Cardiomyopathy -BPH Plan: Extubated, monitor respiratory status. Discussed with Dr. Ventura, resume lasix 40 mg BID and 4 albuterol nebs now, Will assess patient and provide additional recs, will follow up. EKG with no concerns. Monitor on telemetry for now. Strict I/Os, renal diet. Cardiology input noted. Amlodipine/coreg/hydralazine. PO and wound care per surgery. DVTPPX per surgery. Will continue to follow. Thank you for allowing us to participate in the care of this patient. total time spent 65 min.
[2018-12-22] MEDS: CALCIUM ACETATE 667 MG CAPSULE (FP) PO SCH ×2 (16:33→17:47)
[2018-12-22] MEDS: hydrALAZINE HCL 25 MG TABLET (FP) PO SCH (21:05)
[2018-12-22] MEDS: FUROSEMIDE 40 MG TABLET (FP) PO SCH (21:05)
[2018-12-22] MEDS: HEPARIN NA (PORCINE) 5,000 UNITS/ML 1ML VIAL SQ SCH (21:05)
[2018-12-22] MEDS: DOCUSATE SODIUM 100 MG CAPSULE (FP) PO SCH (21:05)
[2018-12-22] MEDS: TAMSULOSIN HCL 0.4 MG CAP PO SCH (21:05)
[2018-12-22] MEDS: ATORVASTATIN CA 10 MG TABLET (FP) PO SCH (21:05)
[2018-12-22] MEDS: CARVEDILOL 25 MG TABLET (FP) PO SCH (21:05)
[2018-12-22 21:12] LABS: CALCIUM 7.8 mg/dL (8.5-10.1); POTASSIUM 5.8 mmol/L (3.5-5.1)
[2018-12-22 21:14] LABS: CREATININE 14.9 mg/dL (0.55-1.3)
[2018-12-22] MEDS ORDERED: PATIENT'S OWN MEDICATION (NON-FORMULARY) (Simvastatin [Simvastatin] 20 MG) PO SCH (22:00)
[2018-12-22] MEDS ORDERED: FUROSEMIDE 40 MG/4 ML INJECTABLE VIAL IVPUSH ONE (23:04)
--- NOTE | 2018-12-22 23:04 | CON.NEP ---
Consult Consult Specialty:: Nephrology Referred by:: medicine /vasc - History of Present Illness Chief Complaint: stage 5 ckd post PD catheter placement - History Source History Provided By: Patient, Medical Record - Past Medical History Cardio/Vascular: Yes: CHF, HTN, Hyperlipdemia Pulmonary: Yes: COPD Gastrointestinal: Yes: Diverticulitis, Other (umbillical hernia) Renal/: Yes: Renal Failure (stage 4), BPH Psych: Yes: Addictions Musculoskeletal: Yes: Chronic low back pain - Past Surgical History Past Surgical History: Yes: None Additional Surgical History: umblical hernia repair and PD catheter placement - Alcohol/Substance Use Hx Alcohol Use: Yes (stopped Jun 2018) Number of Drinks Daily: 4 (last drink 03/17) History of Substance Use: reports: None - Smoking History Smoking history: Current every day smoker Have you smoked in the past 12 months: Yes Aproximately how many cigarettes per day: 5 - Social History Usual Living Arrangement: Other (No kids poor support system) History of Recent Travel: No Home Medications - Allergies Allergies/Adverse Reactions: Allergies Allergy/AdvReac Type Severity Reaction Status Date / Time No Known Allergies Allergy Verified 12/21/18 09:31 - Home Medications Home Medications: Ambulatory Orders Calcitriol [Calcitriol -] 0.25 mcg PO DAILY 03/19/18 Carvedilol [Coreg -] 25 mg PO BID 03/19/18 Furosemide [Lasix] 40 mg PO BID PRN 03/19/18 Simvastatin 20 mg PO HS 03/19/18 Tamsulosin HCl [Flomax] 0.4 mg PO HS 03/19/18 Amlodipine Besylate [Norvasc -] 5 mg PO DAILY #30 tablet 03/25/18 Hydralazine HCl 25 mg PO BID 10/12/18 Calcium Acetate [Phoslo -] 667 mg PO TIDCM #45 capsule 10/15/18 Ranitidine HCl [Zantac] 150 mg PO PRN 12/22/18 Family Disease History - Family Disease History Family Disease History: Diabetes: Mother, Sister (ckd), Heart Disease: Mother, Sister Nephrology Consult - Height Height: 6 ft - Weight Weight: 245 lb - BMI Body Mass Index (BMI): 33.2 - Lab Results CBC,BMP: CBC, BMP 12/22/18 12:22 12/22/18 20:03 Anion Gap: Anion Gap Anion Gap 13 MMOL/L (8-16) 12/22/18 20:03 - Imaging Chest X-ray: Report Reviewed, Image Reviewed - Physical Examination Vital Signs: Vital Signs Temperature 97.9 F 12/22/18 21:00 Pulse Rate 91 H 12/22/18 21:00 Respiratory Rate 20 12/22/18 21:00 Blood Pressure 144/93 12/22/18 21:00 O2 Sat by Pulse Oximetry (%) 94 L 12/22/18 20:52 Constitutional: Yes: Mild Distress Respiratory: Yes: Wheezes Gastrointestinal: Yes: Distention, Other (soft pd catheter Pos BS) Edema: Yes Assessment/Plan 58 with ETOH cirrhosis h/o DU bled last year HTN smoker Now post PD catheter placement ESRD will need HD soon in the next 10 days as PD catheter can then be used Post op got reintubated then extubated On NC now Abd distended soft though may be partly fluid Suggest give lasix 40 IV now ADD nebs Monitor output ADD bicarb tab 650 BID K declining Keep on a low k diet PLease call me in am with pts status all labs meds reviewed Dr Ventura [phone]
[2018-12-23] MEDS: ALBUTEROL SO4 2.5/IPRATROPIUM 0.5 INH SOL 3 ML VIAL.NEB. NEB PRN ×2 (00:45→20:14)
[2018-12-23] MEDS: ACETAMINOPHEN 1000 MG/100 ML VIAL (NON FORMULARY) IVPB PRN (04:05)
[2018-12-23 06:46] LABS: BASO % 0.5 % (0-2.0); HEMATOCRIT 29.4 % (35.4-49); HEMOGLOBIN 9.6 GM/dL (11.7-16.9); LYMPH % 7.5 % (8-40); MCH 27.4 pg (25.7-33.7); MCHC 32.5 g/dl (32.0-35.9); MEAN CELL VOLUME 84.4 fl (80-96); MEAN PLT VOLUME 7.9 fl (7.5-11.1); MONO % 6.5 % (3.8-10.2); NEUT % 84.5 % (42.8-82.8); PLATELET COUNT 234 K/MM3 (134-434); RBC 3.49 M/mm3 (4.00-5.60); WHITE BLOOD COUNT 7.4 K/mm3 (4.0-10.0)
[2018-12-23 07:27] LABS: ALBUMIN 2.8 g/dl (3.4-5.0); BILIRUBIN,TOTAL 0.5 mg/dL (0.2-1); CALCIUM 7.8 mg/dL (8.5-10.1); POTASSIUM 5.5 mmol/L (3.5-5.1); TOT PROT 7.1 g/dl (6.4-8.2)
[2018-12-23 07:41] LABS: CREATININE 14.8 mg/dL (0.55-1.3)
[2018-12-23] MEDS ORDERED: PT OWN MED DRAWER 7, Y5N ONE (08:51)
[2018-12-23] MEDS: CARVEDILOL 25 MG TABLET (FP) PO SCH ×2 (09:04→21:22)
[2018-12-23] MEDS: amLODIPine BESYLATE 5 MG TABLET (FP) PO SCH (09:04)
[2018-12-23] MEDS: CALCIUM ACETATE 667 MG CAPSULE (FP) PO SCH ×3 (09:04→16:37)
[2018-12-23] MEDS: HEPARIN NA (PORCINE) 5,000 UNITS/ML 1ML VIAL SQ SCH ×2 (09:04→17:27)
[2018-12-23] MEDS: hydrALAZINE HCL 25 MG TABLET (FP) PO SCH ×2 (09:04→21:23)
[2018-12-23] MEDS: DOCUSATE SODIUM 100 MG CAPSULE (FP) PO SCH ×2 (09:04→21:25)
[2018-12-23] MEDS: FUROSEMIDE 40 MG TABLET (FP) PO SCH ×2 (09:04→16:37)
[2018-12-23] MEDS: CALCITRIOL 0.25 MCG CAPSULE (FP) PO SCH (09:05)
[2018-12-23] MEDS ORDERED: SODIUM BICARBONATE 650 MG TABLET PO SCH (10:00)
[2018-12-23] MEDS ORDERED: FUROSEMIDE 40 MG TABLET (FP) PO SCH (10:24)
--- NOTE | 2018-12-23 10:27 | PN ---
Progress Note (short form) - Note Progress Note: POD 1, s/p Laparoscopy, Lysis of adhesions, Placement peritoneal dialysis catheter, and Open repair umbilical hernia. Pt seen and examined on AM rounds. Pt sitting in bed, requesting to get out of bed as soon as possible due to discomfort. Reports pain at incision sites controlled with Tylenol. Tolerating clears, has not passed flatus. Denies cp, reports some improvement in breathing, denies calf pain/edema. Vital Signs Temp 98.8 F 12/23/18 08:30 Pulse 84 12/23/18 08:30 Resp 18 12/23/18 08:30 BP 163/89 12/23/18 08:30 Pulse Ox 94 L 12/22/18 20:52 Intake & Output 12/22/18 12/22/18 12/23/18 11:59 23:59 11:59 Intake Total 650 340 Output Total 85 550 750 Balance 565 -210 -750 Weight 245 lb 245 lb Intake: IV 650 IVPB 100 Oral 240 Output: Urine 75 550 750 Mayes 350 750 Estimated Blood Loss 10 Other: Voiding Method Indwelling Catheter Bowel Movement No No Height 6 ft 6 ft Body Mass Index (BMI) 33.2 33.2 Weight Measurement Method Estimated by Patient CBC, BMP 12/23/18 06:00 12/23/18 06:00 Gen: awake, alert, nad. Breathing comfortably on 3L O2 Resp: cta b/l anteriorly CV: rrr, s1s2 Abdo: soft, minimally ttp at incision sites, minimally distended, no rebound, no guarding Ext: SCDS in place and functioning. No LE edema noted. A/P: 58 y/o M w/ PMHx CHF/cardiomyopathy, htn, COPD, CKD stage IV, HLD, h/o gi bleed , now POD 1, s/p Laparoscopy, Lysis of adhesions, Placement peritoneal dialysis catheter, and Open repair umbilical hernia. Afebrile, VSS. On 3L O2 Breathing slightly improved. Pain controlled with current regimen. Urinary output 75ml overnight -Plan d/w attending sales clerk supervisor Dr Ventura. Will change sodium bicarb to 650mg tid, Lasix increased to 80mg bid for tonights dose, will give additional 40mg IV at 2pm. -OOB as much as possible -Labs in AM -Taper oxygen to keep pts sats above 95% -Keep dressing c/d/i -Advance diet as tolerated (low K diet) -Monitor I&OS, keep mayes in place -Possible d/c tomorrow pending pts status -Will change to admission, pt to remain on Dr [place] service d/w RN, sales clerk supervisor and attending Dr Hassan
--- NOTE | 2018-12-23 10:43 | PN ---
Progress Note (short form) - Note Progress Note: s: sob improving. no chest pain, palps, dizziness, lightheadedness Current Medications Acetaminophen (Ofirmev Injection -) 1,000 mg IVPB Q6H PRN PRN Reason: PAIN OR FEVER Last Admin: 12/23/18 04:05 Dose: 1,000 mg Albuterol/Ipratropium (Duoneb -) 1 amp NEB Q4H PRN PRN Reason: SHORTNESS OF BREATH Last Admin: 12/23/18 00:45 Dose: 1 amp Amlodipine Besylate (Norvasc -) 5 mg PO DAILY [facility] Last Admin: 12/23/18 09:04 Dose: 5 mg Atorvastatin Calcium (Lipitor -) 10 mg PO HS [facility] Last Admin: 12/22/18 21:05 Dose: 10 mg Calcitriol (Rocaltrol -) 0.25 mcg PO DAILY [facility] Last Admin: 12/23/18 09:05 Dose: 0.25 mcg Calcium Acetate (Phoslo -) 667 mg PO TIDCM [facility] Last Admin: 12/23/18 09:04 Dose: 667 mg Carvedilol (Coreg -) 25 mg PO BID [facility] Last Admin: 12/23/18 09:04 Dose: 25 mg Docusate Sodium (Colace -) 100 mg PO BID [facility] Last Admin: 12/23/18 09:04 Dose: 100 mg Furosemide (Lasix Injection -) 40 mg IVPUSH ONCE ONE Stop: 12/23/18 14:01 Furosemide (Lasix -) 80 mg PO BIDLASIX [facility] Heparin Sodium (Porcine) (Heparin -) 5,000 unit SQ Q8H-IV [facility] Last Admin: 12/23/18 09:04 Dose: 5,000 unit Hydralazine HCl (Apresoline -) 25 mg PO BID [facility] Last Admin: 12/23/18 09:04 Dose: 25 mg Ondansetron HCl (Zofran Injection) 4 mg IVPUSH Q6H PRN PRN Reason: NAUSEA AND/OR VOMITING Oxycodone HCl (Roxicodone -) 5 mg PO Q6H PRN PRN Reason: PAIN LEVEL 7 - 10 Ranitidine HCl (Zantac -) 150 mg PO PRN [facility] Sodium Bicarbonate (Sodium Bicarbonate -) 650 mg PO TID [facility] Tamsulosin HCl (Flomax -) 0.4 mg PO HS [facility] Last Admin: 12/22/18 21:05 Dose: 0.4 mg Vital Signs Period Temp Pulse Resp BP Sys/Cannon Pulse Ox Last 24 Hr 97.6 F-98.8 F 63-91 14-22 114-165/71-96 94-99 Constitutional: Yes: No Distress, Calm Eyes: Yes: Conjunctiva Clear HENT: Yes: Atraumatic, Normocephalic Neck: Yes: Supple, Trachea Midline Respiratory: Yes: Regular, CTA Bilaterally Gastrointestinal: Yes: Normal Bowel Sounds, Soft Cardiovascular: Yes: Regular Rate and Rhythm Heart Sounds: Yes: S1, S2 Extremities: No: Cold Edema: no Peripheral Pulses: 2+ Left Doralis Pedis, 2+ Right Dorsalis Pedis Integumentary: No: Jaundice diaphoresis Neurological: Yes: Alert, Oriented Psychiatric: No: Agitated echo 08/2017 nl LV/RV, no significant valvular pathology echo 10/2018 nl LV/RV function, mild MR, mild TR, mild AR, mild dilation of ao root mibi 08/2017 nl EF, no ischemia EKG: sinus, nl intervals, no ischemic changes CXR: no congestion a/p: 58M h/o EtOH abuse, CHF, HTN, CKD, COPD here for elective hernia surgery and PD catheter placement. resp distress, diastolic chf: -Post op was extubated but had resp distress so re-intubated, given iv lasix, extubated again and resp status improved. Seems he had some vol overload post op , now improved. received additional dose of IV lasix last night per Dr. Ventura - continue PO lasix CKD - s/p PD catheter today - hyperkalemia now, no ecg changes, plans per renal HTN - cont current meds, norvasc, coreg, hydralazine HLD - cont statin
[2018-12-23] MEDS ORDERED: FUROSEMIDE 40 MG/4 ML INJECTABLE VIAL IVPUSH ONE (14:00)
[2018-12-23] MEDS: SODIUM BICARBONATE 650 MG TABLET PO SCH ×2 (14:09→21:23)
[2018-12-23] MEDS: oxyCODONE HCL 5 MG TABLET PO PRN (16:36)
--- NOTE | 2018-12-23 16:44 | PN ---
Progress Note, Physician Chief Complaint: Mr Aguilar says he feels bloated but otherwise feels normal. He complains of aches everywhere but says this is chronic. Denies cp, sob, n/v. - Current Medication List Current Medications: Active Medications Acetaminophen (Ofirmev Injection -) 1,000 mg IVPB Q6H PRN PRN Reason: PAIN OR FEVER Last Admin: 12/23/18 04:05 Dose: 1,000 mg Albuterol/Ipratropium (Duoneb -) 1 amp NEB Q4H PRN PRN Reason: SHORTNESS OF BREATH Last Admin: 12/23/18 00:45 Dose: 1 amp Amlodipine Besylate (Norvasc -) 5 mg PO DAILY [facility] Last Admin: 12/23/18 09:04 Dose: 5 mg Atorvastatin Calcium (Lipitor -) 10 mg PO HS [facility] Last Admin: 12/22/18 21:05 Dose: 10 mg Calcitriol (Rocaltrol -) 0.25 mcg PO DAILY [facility] Last Admin: 12/23/18 09:05 Dose: 0.25 mcg Calcium Acetate (Phoslo -) 667 mg PO TIDCM [facility] Last Admin: 12/23/18 16:37 Dose: 667 mg Carvedilol (Coreg -) 25 mg PO BID [facility] Last Admin: 12/23/18 09:04 Dose: 25 mg Docusate Sodium (Colace -) 100 mg PO BID [facility] Last Admin: 12/23/18 09:04 Dose: 100 mg Furosemide (Lasix -) 80 mg PO BIDLASIX [facility] Last Admin: 12/23/18 16:37 Dose: 80 mg Heparin Sodium (Porcine) (Heparin -) 5,000 unit SQ Q8H-IV [facility] Last Admin: 12/23/18 09:04 Dose: 5,000 unit Hydralazine HCl (Apresoline -) 25 mg PO BID [facility] Last Admin: 12/23/18 09:04 Dose: 25 mg Ondansetron HCl (Zofran Injection) 4 mg IVPUSH Q6H PRN PRN Reason: NAUSEA AND/OR VOMITING Oxycodone HCl (Roxicodone -) 5 mg PO Q6H PRN PRN Reason: PAIN LEVEL 7 - 10 Last Admin: 12/23/18 16:36 Dose: 5 mg Ranitidine HCl (Zantac -) 150 mg PO PRN [facility] Sodium Bicarbonate (Sodium Bicarbonate -) 650 mg PO TID [facility] Last Admin: 12/23/18 14:09 Dose: 650 mg Tamsulosin HCl (Flomax -) 0.4 mg PO HS [facility] Last Admin: 12/22/18 21:05 Dose: 0.4 mg - Objective Vital Signs: Vital Signs Temperature 36.6 C 12/23/18 14:33 Pulse Rate 86 12/23/18 14:33 Respiratory Rate 18 12/23/18 14:33 Blood Pressure 151/101 H 12/23/18 14:33 O2 Sat by Pulse Oximetry (%) 95 12/23/18 09:00 Constitutional: Yes: No Distress, Calm, Obese Cardiovascular: Yes: Regular Rate and Rhythm. No: Gallop, Murmur, Rub Respiratory: Yes: Regular, CTA Bilaterally. No: Rales, Rhonchi, Wheezes Gastrointestinal: Yes: Normal Bowel Sounds, Soft. No: Distention, Tenderness Extremities: Yes: WNL Edema: No Labs: CBC, BMP 12/23/18 06:00 12/23/18 06:00 Problem List - Problems (1) ESRD (end stage renal disease) Code(s): N18.6 - END STAGE RENAL DISEASE (2) Anemia Code(s): D64.9 - ANEMIA, UNSPECIFIED Qualifiers: Anemia type: due to chronic kidney disease Chronic kidney disease stage: stage 4 (severe) Qualified Code(s): N18.4 - Chronic kidney disease, stage 4 ( severe); D63.1 - Anemia in chronic kidney disease (3) CHF (congestive heart failure) Code(s): I50.9 - HEART FAILURE, UNSPECIFIED Qualifiers: Heart failure chronicity: chronic (4) COPD (chronic obstructive pulmonary disease) Code(s): J44.9 - CHRONIC OBSTRUCTIVE PULMONARY DISEASE, UNSPECIFIED (5) HTN (hypertension) Code(s): I10 - ESSENTIAL (PRIMARY) HYPERTENSION (6) Hyperlipidemia Code(s): E78.5 - HYPERLIPIDEMIA, UNSPECIFIED Qualifiers: Hyperlipidemia type: pure hypercholesterolemia Qualified Code(s): E78.00 - Pure hypercholesterolemia, unspecified; E78.0 - Pure hypercholesterolemia Assessment/Plan -Dr Ventura following, continue IV lasix today -plan to change to oral lasix per Dr Ventura's recommendation -s/p PD catheter placement -continue coreg, hydralazine, and norvasc -continue current regimen -possible discharge tomorrow
--- NOTE | 2018-12-23 18:03 | PATH ---
Surgical Pathology Report Patient Name: DANIEL CHANDLER [facility]. Rec. #: [id number] /Age/Gender: 1960 (Age: 58) / M Account: [id number] Location: 4 PEDS/ADOL Taken: 12/22/2018 Received: 12/22/2018 Reported: 12/23/2018 Physicians: Daniel Hassan M.D. Specimen(s) Received HERNIA CONTENTS Clinical History Chronic kidney disease, umbilical hernia Final Diagnosis HERNIA CONTENTS, REPAIR OF UMBILICAL HERNIA: BENIGN FIBROADIPOSE TISSUE CONSISTENT WITH HERNIA CONTENTS. Electronically Signed Holly Joshi M.D. Gross Description Received in formalin labeled "hernia contents" are multiple fragments of pink-carlson fibroadipose tissue measuring 6 x 4 x 3 cm in aggregate. Plate And Frame Filter Operator sections are submitted in one cassette. MLSZ/12/22/2018 sannilsa/12/22/2018
[2018-12-23] MEDS: ATORVASTATIN CA 10 MG TABLET (FP) PO SCH (21:22)
[2018-12-23] MEDS: TAMSULOSIN HCL 0.4 MG CAP PO SCH (21:23)
[2018-12-23] MEDS: SODIUM CHLORIDE NASAL SPRAY 44 ML BOTTLE NS PRN (21:25)
[2018-12-23] MEDS ORDERED: LABETALOL HCL 5 MG/1 ML (100MG/20 ML VIAL) IVPUSH ONE (22:48)
--- NOTE | 2018-12-23 23:09 | HOSP ---
Subjective - Review of Symptoms Events since last encounter: Called to see patient for tacycardia. EKG showed afib. New labs drawn, morning k 5.5. No meds given, rate broke on its own. Physical Examination Vital Signs: Vital Signs Temperature 98.0 F 12/23/18 21:55 Pulse Rate 82 12/23/18 21:55 Respiratory Rate 22 H 12/23/18 21:55 Blood Pressure 151/97 12/23/18 21:55 O2 Sat by Pulse Oximetry (%) 93 L 12/23/18 20:16 Labs: CBC, BMP 12/23/18 06:00 12/23/18 06:00 Visit type - Emergency Visit Emergency Visit: No - New Patient This patient is new to me today: No - Critical Care Critical Care patient: No
[2018-12-23 23:18] LABS: HEMATOCRIT 30.9 % (35.4-49); HEMOGLOBIN 9.7 GM/dL (11.7-16.9); MCH 26.6 pg (25.7-33.7); MCHC 31.4 g/dl (32.0-35.9); MEAN CELL VOLUME 84.6 fl (80-96); MEAN PLT VOLUME 7.7 fl (7.5-11.1); PLATELET COUNT 212 K/MM3 (134-434); RBC 3.65 M/mm3 (4.00-5.60); RDW 16.8 % (11.9-15.9); WHITE BLOOD COUNT 7.6 K/mm3 (4.0-10.0)
[2018-12-23 23:46] LABS: INR 1.13 (0.83-1.09); PROTHROMBIN TIME (PATIENT) 13.3 SEC (9.7-13.0)
[2018-12-23 23:57] LABS: CALCIUM 8.3 mg/dL (8.5-10.1)
[2018-12-23 23:58] LABS: CREATININE 15.3 mg/dL (0.55-1.3)
[2018-12-24] MEDS: HEPARIN NA (PORCINE) 5,000 UNITS/ML 1ML VIAL SQ SCH ×3 (01:35→18:54)
[2018-12-24] MEDS: FUROSEMIDE 40 MG TABLET (FP) PO SCH (05:33)
[2018-12-24] MEDS: SODIUM BICARBONATE 650 MG TABLET PO SCH ×3 (05:33→21:22)
[2018-12-24] MEDS ORDERED: OXYMETAZOLINE 0.05% NASAL SOLUTION 15 ML BOTTLE NS ONE (05:35)
[2018-12-24 06:49] LABS: BASO % 0.3 % (0-2.0); EOS % 2.2 % (0-4.5); HEMATOCRIT 30.3 % (35.4-49); HEMOGLOBIN 9.7 GM/dL (11.7-16.9); LYMPH % 7.9 % (8-40); MCHC 31.8 g/dl (32.0-35.9); MEAN CELL VOLUME 84.7 fl (80-96); MEAN PLT VOLUME 8.2 fl (7.5-11.1); MONO % 8.5 % (3.8-10.2); NEUT % 81.1 % (42.8-82.8); PLATELET COUNT 227 K/MM3 (134-434); RBC 3.58 M/mm3 (4.00-5.60); RDW 16.9 % (11.9-15.9); WHITE BLOOD COUNT 7.6 K/mm3 (4.0-10.0)
--- NOTE | 2018-12-24 07:51 | PN ---
Progress Note (short form) - Note Progress Note: POD 2, s/p Laparoscopy, Lysis of adhesions, Placement peritoneal dialysis catheter, and Open repair umbilical hernia. Pt seen and examined on AM rounds. Overnight events noted. Pt had approx 45 min episode of rapid afib, broke without intervention. Pt reports feeling pressure over his b/l ribs at the time of the afib episode. States he has been on a 24 hour holter monitor in the past and was told he had episodes of afib, denies use of anticoagulants in the past. Reports abdominal pain is stable from yesterday. No flatus, tolerating clears. Mayes in place. Denies cp, reports breathing is stable, denies calf pain/edema. Vital Signs Temp 98.7 F 12/24/18 06:00 Pulse 93 H 12/24/18 06:00 Resp 20 12/24/18 06:00 BP 154/101 H 12/24/18 06:00 Pulse Ox 93 L 12/23/18 20:16 Intake & Output 12/23/18 12/23/18 12/24/18 11:59 23:59 11:59 Intake Total 650 120 Output Total 750 600 750 Balance -750 50 -630 Weight 241 lb 2 oz Intake: Oral 650 120 Output: Urine 750 600 750 Mayes 750 600 750 Other: Voiding Method Indwelling Catheter Indwelling Catheter Bowel Movement No No Weight Measurement Method Standing Scale Gen: awake, alert, nad. Breathing comfortably on 3.5L O2 Resp: b/l wheezing CV: rrr, s1s2 Abdo: Increased distention as compared to yesterday, minimally ttp at incision sites, no rebound, no guarding Ext: SCDS in place and functioning. No LE edema noted. A/P: 58 y/o M w/ PMHx CHF/cardiomyopathy, htn, COPD, CKD stage IV, HLD, h/o gi bleed , now POD 2, s/p Laparoscopy, Lysis of adhesions, Placement peritoneal dialysis catheter, and Open repair umbilical hernia. Overnight episode of rapid afib, broke without intervention Currently On 3.5L O2, +wheezing, receiving nebulizer trtmt this morning Urinary output 750ml overnight -Will contact Cardiology, Dr Jean for f/u and further reccs -Will contact Renal, Dr Ventura for f/u and further reccs -OOB as much as possible -F/U AM labs -Taper oxygen to keep pts sats above 95% -Keep dressing c/d/i -Hold off on advancing diet -Monitor I&OS, keep mayes in place Not stable for d/c at this time message sent to Dr Hassan regarding above <Juan Alberto Arevalo - Last Filed: 12/24/18 07:53> - Note Progress Note: No further arrhythmia. States breathing is less labored. No flatus Abd full, soft, tender around umbilicus Labs reviewed. Increase activity D/C mayes Dulcolax suppository <Daniel Hassan - Last Filed: 12/24/18 08:41>
[2018-12-24 08:00] LABS: ALBUMIN 2.7 g/dl (3.4-5.0); BILIRUBIN,TOTAL 0.5 mg/dL (0.2-1); CALCIUM 8.3 mg/dL (8.5-10.1); POTASSIUM 5.4 mmol/L (3.5-5.1); TOT PROT 7.2 g/dl (6.4-8.2)
[2018-12-24] MEDS ORDERED: BISACODYL 10 MG SUPP.RECT RC ONE (09:00)
[2018-12-24 09:37] LABS: CREATININE 15.4 mg/dL (0.55-1.3)
[2018-12-24] MEDS: DOCUSATE SODIUM 100 MG CAPSULE (FP) PO SCH ×2 (10:50→21:22)
[2018-12-24] MEDS: CARVEDILOL 25 MG TABLET (FP) PO SCH ×2 (10:51→21:21)
[2018-12-24] MEDS: CALCIUM ACETATE 667 MG CAPSULE (FP) PO SCH ×3 (10:51→16:34)
[2018-12-24] MEDS: amLODIPine BESYLATE 5 MG TABLET (FP) PO SCH (10:51)
[2018-12-24] MEDS: hydrALAZINE HCL 25 MG TABLET (FP) PO SCH ×2 (10:51→21:21)
[2018-12-24] MEDS: CALCITRIOL 0.25 MCG CAPSULE (FP) PO SCH (10:52)
--- NOTE | 2018-12-24 11:44 | PN ---
Progress Note (short form) - Note Progress Note: s: sob improving. no chest pain, palps, dizziness, lightheadedness Current Medications Generic Name Dose Route Start Last Admin Trade Name Freq PRN Reason Stop Dose Admin Acetaminophen 1,000 mg 12/22/18 11:27 12/23/18 04:05 Ofirmev Injection - IVPB 1,000 mg Q6H PRN Administration PAIN OR FEVER Albuterol/Ipratropium 1 amp 12/22/18 23:23 12/23/18 20:14 Duoneb - NEB 1 amp Q4H PRN Administration SHORTNESS OF BREATH Amlodipine Besylate 5 mg 12/23/18 10:00 12/24/18 10:51 Norvasc - PO 5 mg DAILY [facility] Administration Atorvastatin Calcium 10 mg 12/22/18 22:00 12/23/18 21:22 Lipitor - PO 10 mg HS [facility] Administration Calcitriol 0.25 mcg 12/23/18 10:00 12/24/18 10:52 Rocaltrol - PO 0.25 mcg DAILY [facility] Administration Calcium Acetate 667 mg 12/22/18 12:00 12/24/18 10:51 Phoslo - PO 667 mg TIDCM [facility] Administration Carvedilol 25 mg 12/22/18 22:00 12/24/18 10:51 Coreg - PO 25 mg BID [facility] Administration Docusate Sodium 100 mg 12/22/18 22:00 12/24/18 10:50 Colace - PO 100 mg BID [facility] Administration Furosemide 40 mg 12/24/18 14:00 Lasix Injection - IVPUSH 12/24/18 20:01 BID@1400,2000 [facility] Furosemide 40 mg 12/25/18 06:00 Lasix Injection - IVPUSH BIDLASIX [facility] Heparin Sodium (Porcine) 5,000 unit 12/22/18 22:00 12/24/18 10:51 Heparin - SQ 5,000 unit Q8H-IV [facility] Administration Hydralazine HCl 25 mg 12/22/18 22:00 12/24/18 10:51 Apresoline - PO 25 mg BID [facility] Administration Ondansetron HCl 4 mg 12/22/18 12:58 Zofran Injection IVPUSH Q6H PRN NAUSEA AND/OR VOMITING Oxycodone HCl 5 mg 12/22/18 13:38 05/15/19 16:36 Roxicodone - PO 5 mg Q6H PRN Administration PAIN LEVEL 7 - 10 Ranitidine HCl 150 mg 12/22/18 12:00 Zantac - PO PRN [facility] Sodium Bicarbonate 650 mg 12/23/18 14:00 12/24/18 05:33 Sodium Bicarbonate - PO 650 mg TID [facility] Administration Sodium Chloride 2 spray 12/23/18 20:14 12/23/18 21:25 [facility] [place] [facility] [place] - NS 2 inh Q12H PRN Administration NASAL CONGESTION Tamsulosin HCl 0.4 mg 12/22/18 22:00 12/23/18 21:23 Flomax - PO 0.4 mg HS [facility] Administration Vital Signs Period Temp Pulse Resp BP Sys/Cannon Pulse Ox Last 24 Hr 97.9 F-98.7 F 80-93 18-22 146-154/94-101 93 Constitutional: Yes: No Distress, Calm Eyes: Yes: Conjunctiva Clear Neck: Yes: Supple, Trachea Midline Respiratory: Yes: Regular, CTA Bilaterally Gastrointestinal: Yes: Normal Bowel Sounds, Soft Cardiovascular: Yes: Regular Rate and Rhythm Heart Sounds: Yes: S1, S2 Extremities: No: Cold Edema: no Integumentary: No: Jaundice diaphoresis Neurological: Yes: Alert, Oriented Psychiatric: No: Agitated CBC, BMP 12/24/18 06:00 12/24/18 06:00 echo 08/2017 nl LV/RV, no significant valvular pathology echo 10/2018 nl LV/RV function, mild MR, mild TR, mild AR, mild dilation of ao root mibi 08/2017 nl EF, no ischemia EKG: sinus, nl intervals, no ischemic changes CXR: no congestion tele: sr, brief self resolving afib with rvr overnight a/p: 58M h/o EtOH abuse, CHF, HTN, CKD, COPD here for elective hernia surgery and PD catheter placement. resp distress, diastolic chf: -Post op was extubated but had resp distress so re-intubated, given iv lasix, extubated again and resp status improved. Seems he had some vol overload post op , now improved. -lasix and dialysis per renal CKD - s/p PD catheter - hyperkalemia still, plans per renal HTN - cont current meds, norvasc, coreg, hydralazine HLD - cont statin pafib: -overnight 5/15 tele and ecg show afib with rvr. Converted to sr on own after short time. Questionable significance, possibly related to acute issues in post op setting. Cont to monitor on tele to see if any recurrence.
[2018-12-24] MEDS: FUROSEMIDE 40 MG/4 ML INJECTABLE VIAL IVPUSH SCH ×2 (13:12→21:21)
[2018-12-24] MEDS ORDERED: FUROSEMIDE 40 MG/4 ML INJECTABLE VIAL IVPUSH SCH (14:00)
--- NOTE | 2018-12-24 15:29 | PN ---
Progress Note (short form) - Note Progress Note: RENAL REMAINS DISTENDED WHEEZY AFIB OVERNIGHT DE JESUS OUT HOPE VOIDS OTHERWISE BLADDER SCAN GET FLAT PLATE VERY DISTENDED NO BM SINCE MON GOT DULCOLAX SUPPOSITORY SATS OK ON NC INCREASE LASIX TO 80 Q 12 LABS NOTED BICARB IMPROVING CASE D/W SW FAX INFO TO [facility] CAN START TRAINING NEXT WEEK IF DOES NOT IMPROVE MAY NEED IN HOUSE A FEW HEMO SESSIONS BEFORE DISCHARGE WILL DECIDE IN AM CALL FOR QUESTION S [phone] DR FORMAN
[2018-12-24] MEDS: oxyCODONE HCL 5 MG TABLET PO PRN ×2 (16:34→21:41)
--- NOTE | 2018-12-24 17:09 | PN ---
Progress Note, Physician Chief Complaint: Mr Aguilar says he is feeling better today. Says his swelling and his breathing is better but still feels very tired. Denies cp and n/v. - Current Medication List Current Medications: Active Medications Acetaminophen (Ofirmev Injection -) 1,000 mg IVPB Q6H PRN PRN Reason: PAIN OR FEVER Last Admin: 12/23/18 04:05 Dose: 1,000 mg Albuterol/Ipratropium (Duoneb -) 1 amp NEB Q4H PRN PRN Reason: SHORTNESS OF BREATH Last Admin: 12/23/18 20:14 Dose: 1 amp Amlodipine Besylate (Norvasc -) 5 mg PO DAILY [facility] Last Admin: 12/24/18 10:51 Dose: 5 mg Atorvastatin Calcium (Lipitor -) 10 mg PO HS [facility] Last Admin: 12/23/18 21:22 Dose: 10 mg Calcitriol (Rocaltrol -) 0.25 mcg PO DAILY [facility] Last Admin: 12/24/18 10:52 Dose: 0.25 mcg Calcium Acetate (Phoslo -) 667 mg PO TIDCM [facility] Last Admin: 12/24/18 16:34 Dose: 667 mg Carvedilol (Coreg -) 25 mg PO BID [facility] Last Admin: 12/24/18 10:51 Dose: 25 mg Docusate Sodium (Colace -) 100 mg PO BID [facility] Last Admin: 12/24/18 10:50 Dose: 100 mg Furosemide (Lasix Injection -) 40 mg IVPUSH BID@1400,2000 [facility] Stop: 12/24/18 20:01 Last Admin: 12/24/18 13:12 Dose: 40 mg Furosemide (Lasix Injection -) 80 mg IVPUSH BIDLASIX [facility] Heparin Sodium (Porcine) (Heparin -) 5,000 unit SQ Q8H-IV [facility] Last Admin: 12/24/18 10:51 Dose: 5,000 unit Hydralazine HCl (Apresoline -) 25 mg PO BID [facility] Last Admin: 12/24/18 10:51 Dose: 25 mg Ondansetron HCl (Zofran Injection) 4 mg IVPUSH Q6H PRN PRN Reason: NAUSEA AND/OR VOMITING Oxycodone HCl (Roxicodone -) 5 mg PO Q6H PRN PRN Reason: PAIN LEVEL 7 - 10 Last Admin: 12/24/18 16:34 Dose: 5 mg Ranitidine HCl (Zantac -) 150 mg PO PRN [facility] Sodium Bicarbonate (Sodium Bicarbonate -) 650 mg PO TID [facility] Last Admin: 12/24/18 13:12 Dose: 650 mg Sodium Chloride ([place] Nasal [place] -) 2 spray NS Q12H PRN PRN Reason: NASAL CONGESTION Last Admin: 12/23/18 21:25 Dose: 2 inh Tamsulosin HCl (Flomax -) 0.4 mg PO HS [facility] Last Admin: 12/23/18 21:23 Dose: 0.4 mg - Objective Vital Signs: Vital Signs Temperature 36.5 C 12/24/18 13:20 Pulse Rate 76 12/24/18 13:20 Respiratory Rate 20 12/24/18 13:20 Blood Pressure 134/98 12/24/18 13:20 O2 Sat by Pulse Oximetry (%) 97 12/24/18 09:00 Constitutional: Yes: No Distress, Calm, Obese Cardiovascular: Yes: Regular Rate and Rhythm. No: Gallop, Murmur, Rub Respiratory: Yes: Regular, On Nasal O2, Rales (bilateral bases). No: CTA Bilaterally, Rhonchi, Wheezes Gastrointestinal: Yes: Normal Bowel Sounds, Soft. No: Distention, Tenderness Extremities: Yes: WNL Edema: No Labs: CBC, BMP 12/24/18 06:00 12/24/18 06:00 INR, PTT INR 1.13 (0.83-1.09) H 12/23/18 23:10 Problem List - Problems (1) ESRD (end stage renal disease) Code(s): N18.6 - END STAGE RENAL DISEASE (2) Anemia Code(s): D64.9 - ANEMIA, UNSPECIFIED Qualifiers: Anemia type: due to chronic kidney disease Chronic kidney disease stage: stage 4 (severe) Qualified Code(s): N18.4 - Chronic kidney disease, stage 4 ( severe); D63.1 - Anemia in chronic kidney disease (3) CHF (congestive heart failure) Code(s): I50.9 - HEART FAILURE, UNSPECIFIED Qualifiers: Heart failure chronicity: chronic (4) COPD (chronic obstructive pulmonary disease) Code(s): J44.9 - CHRONIC OBSTRUCTIVE PULMONARY DISEASE, UNSPECIFIED (5) HTN (hypertension) Code(s): I10 - ESSENTIAL (PRIMARY) HYPERTENSION (6) Hyperlipidemia Code(s): E78.5 - HYPERLIPIDEMIA, UNSPECIFIED Qualifiers: Hyperlipidemia type: pure hypercholesterolemia Qualified Code(s): E78.00 - Pure hypercholesterolemia, unspecified; E78.0 - Pure hypercholesterolemia Assessment/Plan -patient with afib overnight, spontaneously resolved -case d/w cardiology, monitor -potassium is elevated, Dr Ventura aware -may need to have HD prior to discharge -IV lasix increased -monitor I/Os and bmp -continue current management
[2018-12-24] MEDS: ALBUTEROL SO4 2.5/IPRATROPIUM 0.5 INH SOL 3 ML VIAL.NEB. NEB PRN (19:54)
[2018-12-24] MEDS: TAMSULOSIN HCL 0.4 MG CAP PO SCH (21:21)
[2018-12-24] MEDS: ATORVASTATIN CA 10 MG TABLET (FP) PO SCH (21:21)
[2018-12-24] MEDS: SODIUM CHLORIDE NASAL SPRAY 44 ML BOTTLE NS PRN (21:41)
[2018-12-25] MEDS: HEPARIN NA (PORCINE) 5,000 UNITS/ML 1ML VIAL SQ SCH ×4 (01:27→21:00)
[2018-12-25] MEDS: ALBUTEROL SO4 2.5/IPRATROPIUM 0.5 INH SOL 3 ML VIAL.NEB. NEB PRN ×3 (04:39→20:45)
[2018-12-25] MEDS: SODIUM BICARBONATE 650 MG TABLET PO SCH ×3 (05:49→21:05)
[2018-12-25] MEDS: FUROSEMIDE 40 MG/4 ML INJECTABLE VIAL IVPUSH SCH ×2 (05:49→14:35)
[2018-12-25] MEDS ORDERED: FUROSEMIDE 40 MG/4 ML INJECTABLE VIAL IVPUSH SCH (06:00)
[2018-12-25 06:40] LABS: BASO % 0.4 % (0-2.0); EOS % 3.3 % (0-4.5); HEMATOCRIT 29.5 % (35.4-49); HEMOGLOBIN 9.5 GM/dL (11.7-16.9); LYMPH % 9.6 % (8-40); MCH 27.2 pg (25.7-33.7); MCHC 32.2 g/dl (32.0-35.9); MEAN CELL VOLUME 84.3 fl (80-96); MEAN PLT VOLUME 8.1 fl (7.5-11.1); MONO % 9.8 % (3.8-10.2); NEUT % 76.9 % (42.8-82.8); PLATELET COUNT 220 K/MM3 (134-434); RDW 17.3 % (11.9-15.9)
[2018-12-25 07:54] LABS: CALCIUM 8.4 mg/dL (8.5-10.1); MAGNESIUM 1.9 mg/dL (1.8-2.4); PHOSPHOROUS 8.4 mg/dL (2.5-4.9); POTASSIUM 5.5 mmol/L (3.5-5.1)
--- NOTE | 2018-12-25 08:24 | PN ---
Progress Note (short form) - Note Progress Note: Feels better VSS Abd distended, soft. Serous drainage from PD catheter site Imp: Slow recovery, ileus [place]: Await decision om need for HD. Catheter would be needed.
[2018-12-25] MEDS: hydrALAZINE HCL 25 MG TABLET (FP) PO SCH ×2 (09:03→21:04)
[2018-12-25] MEDS: DOCUSATE SODIUM 100 MG CAPSULE (FP) PO SCH ×2 (09:03→21:04)
[2018-12-25] MEDS: CARVEDILOL 25 MG TABLET (FP) PO SCH ×2 (09:03→21:04)
[2018-12-25] MEDS: amLODIPine BESYLATE 5 MG TABLET (FP) PO SCH (09:04)
[2018-12-25] MEDS: CALCIUM ACETATE 667 MG CAPSULE (FP) PO SCH ×3 (09:04→17:45)
[2018-12-25] MEDS: CALCITRIOL 0.25 MCG CAPSULE (FP) PO SCH (09:06)
[2018-12-25] MEDS: oxyCODONE HCL 5 MG TABLET PO PRN ×2 (09:08→21:05)
[2018-12-25 09:11] LABS: CREATININE 15.6 mg/dL (0.55-1.3)
--- NOTE | 2018-12-25 10:14 | PN ---
Progress Note, Physician Chief Complaint: sitting in chair Comfortable TELE: AF noted 12/23 NSR today Down 2 lbs - Current Medication List Current Medications: Active Medications Acetaminophen (Ofirmev Injection -) 1,000 mg IVPB Q6H PRN PRN Reason: PAIN OR FEVER Last Admin: 12/23/18 04:05 Dose: 1,000 mg Albuterol/Ipratropium (Duoneb -) 1 amp NEB Q4H PRN PRN Reason: SHORTNESS OF BREATH Last Admin: 12/25/18 04:39 Dose: 1 amp Amlodipine Besylate (Norvasc -) 5 mg PO DAILY [facility] Last Admin: 12/25/18 09:04 Dose: 5 mg Atorvastatin Calcium (Lipitor -) 10 mg PO HS [facility] Last Admin: 12/24/18 21:21 Dose: 10 mg Calcitriol (Rocaltrol -) 0.25 mcg PO DAILY [facility] Last Admin: 12/25/18 09:06 Dose: 0.25 mcg Calcium Acetate (Phoslo -) 667 mg PO TIDCM [facility] Last Admin: 12/25/18 09:04 Dose: 667 mg Carvedilol (Coreg -) 25 mg PO BID [facility] Last Admin: 12/25/18 09:03 Dose: 25 mg Docusate Sodium (Colace -) 100 mg PO BID [facility] Last Admin: 12/25/18 09:03 Dose: 100 mg Furosemide (Lasix Injection -) 80 mg IVPUSH BIDLASIX [facility] Last Admin: 12/25/18 05:49 Dose: 80 mg Heparin Sodium (Porcine) (Heparin -) 5,000 unit SQ Q8H-IV [facility] Last Admin: 12/25/18 09:04 Dose: 5,000 unit Hydralazine HCl (Apresoline -) 25 mg PO BID [facility] Last Admin: 12/25/18 09:03 Dose: 25 mg Ondansetron HCl (Zofran Injection) 4 mg IVPUSH Q6H PRN PRN Reason: NAUSEA AND/OR VOMITING Oxycodone HCl (Roxicodone -) 5 mg PO Q6H PRN PRN Reason: PAIN LEVEL 7 - 10 Last Admin: 12/25/18 09:08 Dose: 5 mg Ranitidine HCl (Zantac -) 150 mg PO PRN [facility] Sodium Bicarbonate (Sodium Bicarbonate -) 650 mg PO TID [facility] Last Admin: 12/25/18 05:49 Dose: 650 mg Sodium Chloride ([place] Nasal [place] -) 2 spray NS Q12H PRN PRN Reason: NASAL CONGESTION Last Admin: 12/24/18 21:41 Dose: 2 inh Tamsulosin HCl (Flomax -) 0.4 mg PO HS [facility] Last Admin: 12/24/18 21:21 Dose: 0.4 mg - Objective Vital Signs: Vital Signs Temperature 97.9 F 12/25/18 09:31 Pulse Rate 77 12/25/18 09:31 Respiratory Rate 18 12/25/18 09:31 Blood Pressure 135/86 12/25/18 09:31 O2 Sat by Pulse Oximetry (%) 97 12/24/18 20:15 Constitutional: Yes: Calm Eyes: Yes: Conjunctiva Clear Cardiovascular: Yes: Regular Rate and Rhythm Respiratory: Yes: Other (rales bases r> l) Gastrointestinal: Yes: Abdomen, Obese (distended) Edema: Yes Edema: LLE: 2+, RLE: 2+ Neurological: Yes: Alert, Oriented ...Motor Strength: WNL Psychiatric: Yes: WNL Labs: CBC, BMP 12/25/18 06:00 12/25/18 06:00 INR, PTT INR 1.13 (0.83-1.09) H 12/23/18 23:10 Laboratory Tests 12/25/18 12/25/18 06:00 06:00 WBC 7.0 Hgb 9.5 L Plt Count 220 Sodium 132 L Potassium 5.5 H BUN 92 H Creatinine 15.6 H* Magnesium 1.9 - ....Imaging EKG: Image Reviewed Assessment/Plan echo 08/2017 nl LV/RV, no significant valvular pathology echo 10/2018 nl LV/RV function, mild MR, mild TR, mild AR, mild dilation of ao root mibi 08/2017 nl EF, no ischemia EKG: sinus, nl intervals, no ischemic changes CXR: no congestion tele: sr, brief self resolving afib with rvr overnight A/P: 58M h/o EtOH abuse, CHF, HTN, CKD, COPD here for elective hernia surgery and PD catheter placement. 1. Resp distress, diastolic chf: -Post op was extubated but had resp distress so re-intubated, given iv lasix, extubated again and resp status improved. Seems he had some vol overload post op , now improved. -lasix and dialysis per renal 2. CKD: - s/p PD catheter - hyperkalemia still, plans per renal 3. HTN: - cont current meds, norvasc, coreg, hydralazine. BP is at goal of < 140/90 4. HLD: - cont statin 5. PAF: overnight 12/23 tele and ecg show afib with rvr. Converted to sr on own after short time. Questionable significance, possibly related to acute issues in post op setting. No recurrence of AF since 12/23 [facility] will need to decide re ASA vs full AC. Will d/w Dr. 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
--- NOTE | 2018-12-25 10:52 | PN ---
Progress Note (short form) - Note Progress Note: POD 3, s/p Laparoscopy, Lysis of adhesions, Placement peritoneal dialysis catheter, and Open repair umbilical hernia. Pt seen and examined on AM rounds. Overnight events noted. Pt had approx 45 min episode of rapid afib, broke without intervention. Pt reports feeling pressure over his b/l ribs at the time of the afib episode. States he has been on a 24 hour holter monitor in the past and was told he had episodes of afib, denies use of anticoagulants in the past. Reports abdominal pain is stable from yesterday. No flatus, tolerating clears. Albarran in place. Denies cp, reports breathing is stable, denies calf pain/edema. Vital Signs Temp 97.9 F 12/25/18 09:31 Pulse 77 12/25/18 09:31 Resp 18 12/25/18 09:31 BP 135/86 12/25/18 09:31 Pulse Ox 97 12/24/18 20:15 Intake & Output 12/24/18 12/24/18 12/25/18 11:59 23:59 11:59 Intake Total 120 140 Output Total 1050 250 440 Balance -930 -110 -440 Weight 241 lb 2 oz 243 lb 12.8 oz Intake: IV 20 LAC 22 12/22/2018 20 Oral 120 120 Output: Urine 1050 250 440 [place] 1050 Void 250 440 Other: Voiding Method Indwelling Catheter Urinal Urinal Bowel Movement No Weight Measurement Method Standing Scale Standing Scale CBC, BMP 12/25/18 06:00 12/25/18 06:00 Gen: awake, alert, nad. Breathing comfortably on 3.5L O2 Resp: b/l wheezing improved from yesterday CV: rrr, s1s2 Abdo: Abdomen distended, + ttp at incision sites, no rebound, no guarding. Dressing with moderate serosanguinous drainage. removed, port incisions c/d/i with dermabond in place. Umbilical incision intact with moderate edema/ ecchymosis. No drainage. PD catheter in place with serosanguinous drainage noted. New 4x4's, abd pads and tape placed over incisions and drain. Ext: No LE edema noted. A/P: 58 y/o M w/ PMHx CHF/cardiomyopathy, htn, COPD, CKD stage IV, HLD, h/o gi bleed, now POD 3, s/p Laparoscopy, Lysis of adhesions, Placement peritoneal dialysis catheter, and Open repair umbilical hernia. Currently On 2L O2, +wheezing, receiving nebulizer trtmt this morning Urinary output 440ml overnight -D/w renal, pt will require further diuresis in the hospital -Will transfer to medicine (Dr Bee) for further management -Renal/Cards reccs appreciated -OOB as much as possible -F/U AM labs -Taper oxygen to keep pts sats above 95% -Keep dressing c/d/i -Advance diet slowly -Monitor I&OS pt seen with attending Dr Hassan
--- NOTE | 2018-12-25 11:44 | PN ---
Progress Note, Physician Chief Complaint: Mr Aguilar says he is doing better today. Says his swelling is decreased and his breathing continues to improve. No cp, sob, n/v. - Current Medication List Current Medications: Active Medications Acetaminophen (Ofirmev Injection -) 1,000 mg IVPB Q6H PRN PRN Reason: PAIN OR FEVER Last Admin: 12/23/18 04:05 Dose: 1,000 mg Albuterol/Ipratropium (Duoneb -) 1 amp NEB Q4H PRN PRN Reason: SHORTNESS OF BREATH Last Admin: 12/25/18 11:20 Dose: 1 amp Amlodipine Besylate (Norvasc -) 5 mg PO DAILY [facility] Last Admin: 12/25/18 09:04 Dose: 5 mg Atorvastatin Calcium (Lipitor -) 10 mg PO HS [facility] Last Admin: 12/24/18 21:21 Dose: 10 mg Calcitriol (Rocaltrol -) 0.25 mcg PO DAILY [facility] Last Admin: 12/25/18 09:06 Dose: 0.25 mcg Calcium Acetate (Phoslo -) 667 mg PO TIDCM [facility] Last Admin: 12/25/18 09:04 Dose: 667 mg Carvedilol (Coreg -) 25 mg PO BID [facility] Last Admin: 12/25/18 09:03 Dose: 25 mg Docusate Sodium (Colace -) 100 mg PO BID [facility] Last Admin: 12/25/18 09:03 Dose: 100 mg Furosemide (Lasix Injection -) 80 mg IVPUSH BIDLASIX [facility] Last Admin: 12/25/18 05:49 Dose: 80 mg Heparin Sodium (Porcine) (Heparin -) 5,000 unit SQ Q8H-IV [facility] Last Admin: 12/25/18 09:04 Dose: 5,000 unit Hydralazine HCl (Apresoline -) 25 mg PO BID [facility] Last Admin: 12/25/18 09:03 Dose: 25 mg Ondansetron HCl (Zofran Injection) 4 mg IVPUSH Q6H PRN PRN Reason: NAUSEA AND/OR VOMITING Oxycodone HCl (Roxicodone -) 5 mg PO Q6H PRN PRN Reason: PAIN LEVEL 7 - 10 Last Admin: 12/25/18 09:08 Dose: 5 mg Ranitidine HCl (Zantac -) 150 mg PO PRN [facility] Sodium Bicarbonate (Sodium Bicarbonate -) 650 mg PO TID [facility] Last Admin: 12/25/18 05:49 Dose: 650 mg Sodium Chloride ([place] Nasal [place] -) 2 spray NS Q12H PRN PRN Reason: NASAL CONGESTION Last Admin: 12/24/18 21:41 Dose: 2 inh Tamsulosin HCl (Flomax -) 0.4 mg PO HS [facility] Last Admin: 12/24/18 21:21 Dose: 0.4 mg - Objective Vital Signs: Vital Signs Temperature 36.6 C 12/25/18 09:31 Pulse Rate 77 12/25/18 09:31 Respiratory Rate 18 12/25/18 09:31 Blood Pressure 135/86 12/25/18 09:31 O2 Sat by Pulse Oximetry (%) 97 12/24/18 20:15 Constitutional: Yes: No Distress, Calm, Obese Cardiovascular: Yes: Regular Rate and Rhythm. No: Gallop, Murmur, Rub Respiratory: Yes: Regular, CTA Bilaterally. No: Rales, Rhonchi, Wheezes Gastrointestinal: Yes: Normal Bowel Sounds, Soft, Distention. No: Tenderness Extremities: Yes: WNL Edema: Yes Edema: LLE: 2+, RLE: 2+ Labs: CBC, BMP 12/25/18 06:00 12/25/18 06:00 INR, PTT INR 1.13 (0.83-1.09) H 12/23/18 23:10 Problem List - Problems (1) ESRD (end stage renal disease) Code(s): N18.6 - END STAGE RENAL DISEASE (2) Anemia Code(s): D64.9 - ANEMIA, UNSPECIFIED Qualifiers: Anemia type: due to chronic kidney disease Chronic kidney disease stage: stage 4 (severe) Qualified Code(s): N18.4 - Chronic kidney disease, stage 4 ( severe); D63.1 - Anemia in chronic kidney disease (3) CHF (congestive heart failure) Code(s): I50.9 - HEART FAILURE, UNSPECIFIED Qualifiers: Heart failure chronicity: chronic (4) COPD (chronic obstructive pulmonary disease) Code(s): J44.9 - CHRONIC OBSTRUCTIVE PULMONARY DISEASE, UNSPECIFIED (5) HTN (hypertension) Code(s): I10 - ESSENTIAL (PRIMARY) HYPERTENSION (6) Hyperlipidemia Code(s): E78.5 - HYPERLIPIDEMIA, UNSPECIFIED Qualifiers: Hyperlipidemia type: pure hypercholesterolemia Qualified Code(s): E78.00 - Pure hypercholesterolemia, unspecified; E78.0 - Pure hypercholesterolemia Assessment/Plan -reviewed abdominal x-ray, possible ileus after offending event but suspect if present now resolving as patient has bowel sounds and bowel movements -also tolerating diet without difficulty -there was question if ileus is causing worsening STEPH and hyperkalemia -if so, that would mean ischemia and patient does not clinically appear to have ischemia -will check lactic acid to evaluate -nephrology following, defer HD to Dr Ventura -currently in NSR -continue current management -case d/w surgical team and will take over management
[2018-12-25] MEDS ORDERED: CALCIUM ACETATE 667 MG CAPSULE (FP) PO SCH (14:12)
--- NOTE | 2018-12-25 14:15 | PN ---
Progress Note (short form) - Note Progress Note: RENAL WAS OOB EARLIER CHEST MILD WHEEZE ABD DISTENDED TYMPANIC EXT POS EDEMA LABS REVIEWED REMAINS DISTENDED WHEEZY BUT IMPROVED MAKING 1300 /AY WITH LASIX 80 IV Q 12 MILD ILEUS FILM REVIEWED WILL D/W DR WAYNE SATS OK ON NC PO4 HIGH INCREASE HOSLO TO TID WITH MEALS BICARB IMPROVING IF DOES NOT IMPROVE MAY NEED IN HOUSE A FEW HEMO SESSIONS BEFORE DISCHARGE WILL DECIDE IN AM CALL FOR QUESTION S [phone] DR FORMAN
[2018-12-25] MEDS ORDERED: EPOETIN ALFA 2,000 UNIT/1 ML VIAL SQ ONE (14:45)
[2018-12-25] MEDS ORDERED: EPOETIN ALFA 20,000 UNIT/1 ML VIAL SQ ONE (15:30)
[2018-12-25] MEDS ORDERED: PT OWN MED DRAWER 7, Y5N ONE (17:13)
[2018-12-25] MEDS: ATORVASTATIN CA 10 MG TABLET (FP) PO SCH (21:04)
[2018-12-25] MEDS: TAMSULOSIN HCL 0.4 MG CAP PO SCH (21:04)
[2018-12-26] MEDS: HEPARIN NA (PORCINE) 5,000 UNITS/ML 1ML VIAL SQ SCH ×3 (05:49→21:31)
[2018-12-26] MEDS: SODIUM BICARBONATE 650 MG TABLET PO SCH ×3 (05:49→21:31)
[2018-12-26] MEDS: FUROSEMIDE 40 MG/4 ML INJECTABLE VIAL IVPUSH SCH ×2 (05:50→15:00)
[2018-12-26 07:42] LABS: BASO % 0.4 % (0-2.0); EOS % 3.3 % (0-4.5); HEMATOCRIT 29.1 % (35.4-49); HEMOGLOBIN 9.4 GM/dL (11.7-16.9); LYMPH % 11.2 % (8-40); MCH 27.2 pg (25.7-33.7); MCHC 32.3 g/dl (32.0-35.9); MEAN CELL VOLUME 84.2 fl (80-96); MEAN PLT VOLUME 8.6 fl (7.5-11.1); MONO % 11.4 % (3.8-10.2); NEUT % 73.7 % (42.8-82.8); PLATELET COUNT 219 K/MM3 (134-434); RBC 3.46 M/mm3 (4.00-5.60); RDW 16.6 % (11.9-15.9); WHITE BLOOD COUNT 6.4 K/mm3 (4.0-10.0)
[2018-12-26 07:55] LABS: CALCIUM 8.5 mg/dL (8.5-10.1); MAGNESIUM 1.6 mg/dL (1.8-2.4); PHOSPHOROUS 8.9 mg/dL (2.5-4.9); POTASSIUM 5.8 mmol/L (3.5-5.1)
[2018-12-26 08:40] LABS: CREATININE 16.9 mg/dL (0.55-1.3)
[2018-12-26] MEDS: CALCIUM ACETATE 667 MG CAPSULE (FP) PO SCH ×3 (08:49→18:35)
--- NOTE | 2018-12-26 09:52 | PN ---
Progress Note, Physician Chief Complaint: TELE: NSR. No AF since 12/23- brief self limited episode Denies CP K+ 5.8 - Current Medication List Current Medications: Active Medications Acetaminophen (Ofirmev Injection -) 1,000 mg IVPB Q6H PRN PRN Reason: PAIN OR FEVER Last Admin: 12/23/18 04:05 Dose: 1,000 mg Albuterol/Ipratropium (Duoneb -) 1 amp NEB Q4H PRN PRN Reason: SHORTNESS OF BREATH Last Admin: 12/25/18 20:45 Dose: 1 amp Amlodipine Besylate (Norvasc -) 5 mg PO DAILY [facility] Last Admin: 12/25/18 09:04 Dose: 5 mg Atorvastatin Calcium (Lipitor -) 10 mg PO HS [facility] Last Admin: 12/25/18 21:04 Dose: 10 mg Calcitriol (Rocaltrol -) 0.25 mcg PO DAILY [facility] Last Admin: 12/25/18 09:06 Dose: 0.25 mcg Calcium Acetate (Phoslo -) 1,334 mg PO TIDCM [facility] Last Admin: 12/26/18 08:49 Dose: 1,334 mg Carvedilol (Coreg -) 25 mg PO BID [facility] Last Admin: 12/25/18 21:04 Dose: 25 mg Docusate Sodium (Colace -) 100 mg PO BID [facility] Last Admin: 12/25/18 21:04 Dose: 100 mg Furosemide (Lasix Injection -) 80 mg IVPUSH BIDLASIX [facility] Last Admin: 12/26/18 05:50 Dose: 80 mg Heparin Sodium (Porcine) (Heparin -) 5,000 unit SQ TID [facility] Last Admin: 12/26/18 05:49 Dose: 5,000 unit Hydralazine HCl (Apresoline -) 25 mg PO BID [facility] Last Admin: 12/25/18 21:04 Dose: 25 mg Ondansetron HCl (Zofran Injection) 4 mg IVPUSH Q6H PRN PRN Reason: NAUSEA AND/OR VOMITING Oxycodone HCl (Roxicodone -) 5 mg PO Q6H PRN PRN Reason: PAIN LEVEL 7 - 10 Last Admin: 12/25/18 21:05 Dose: 5 mg Ranitidine HCl (Zantac -) 150 mg PO PRN [facility] Sodium Bicarbonate (Sodium Bicarbonate -) 650 mg PO TID [facility] Last Admin: 12/26/18 05:49 Dose: 650 mg Sodium Chloride ([place] Nasal [place] -) 2 spray NS Q12H PRN PRN Reason: NASAL CONGESTION Last Admin: 12/24/18 21:41 Dose: 2 inh Tamsulosin HCl (Flomax -) 0.4 mg PO HS [facility] Last Admin: 12/25/18 21:04 Dose: 0.4 mg - Objective Vital Signs: Vital Signs Temperature 98.5 F 12/26/18 05:59 Pulse Rate 85 12/26/18 05:59 Respiratory Rate 20 12/26/18 05:59 Blood Pressure 130/81 12/26/18 05:59 O2 Sat by Pulse Oximetry (%) 94 L 12/25/18 19:57 Constitutional: Yes: No Distress Cardiovascular: Yes: Regular Rate and Rhythm Respiratory: Yes: Other (decreased basilar breath sounds) Gastrointestinal: Yes: Abdomen, Obese, Distention Edema: Yes Edema: LLE: 1+ (ankle), RLE: 1+ (ankle) Neurological: Yes: Alert, Oriented Labs: CBC, BMP 12/26/18 06:00 12/26/18 06:00 INR, PTT INR 1.13 (0.83-1.09) H 12/23/18 23:10 Laboratory Tests 12/26/18 12/26/18 06:00 06:00 WBC 6.4 Hgb 9.4 L Plt Count 219 Sodium 133 L Potassium 5.8 H BUN 97 H Creatinine 16.9 H* - ....Imaging EKG: Image Reviewed Assessment/Plan Assessment/Plan echo 08/2017 nl LV/RV, no significant valvular pathology echo 10/2018 nl LV/RV function, mild MR, mild TR, mild AR, mild dilation of ao root mibi 08/2017 nl EF, no ischemia EKG: sinus, nl intervals, no ischemic changes CXR: no congestion tele: sr, brief self resolving afib with rvr overnight A/P: 58M h/o EtOH abuse, CHF, HTN, CKD, COPD here for elective hernia surgery and PD catheter placement. 1. Resp distress, diastolic chf: -Post op was extubated but had resp distress so re-intubated, given iv lasix, extubated again and resp status improved. Seems he had some vol overload post op , now improving -lasix and dialysis per renal 2. CKD: - s/p PD catheter - hyperkalemia: d/w Dr. [place]. Will give Kayexalate today. 3. HTN: - cont current meds, norvasc, coreg, hydralazine. BP is at goal of < 140/90 4. HLD: - cont statin 5. PAF: overnight 12/23 tele and ecg show afib with rvr. Converted to sr on own after short time. Questionable significance, possibly related to acute issues in post op setting. No recurrence of AF since 12/[address] Jean yesterday. Will hold on full AC for now s/p PD catheter insertion and this very brief self limited episode. If recurrence can consider. For now will plan to use ASA 81mg daily when safe from surgical perspective.
[2018-12-26] MEDS ORDERED: SODIUM POLYSTYRENE SULFONATE 15 GM/60 ML BOTTLE PO ONE ×2 (10:00→13:00)
[2018-12-26] MEDS: hydrALAZINE HCL 25 MG TABLET (FP) PO SCH ×2 (11:19→21:31)
[2018-12-26] MEDS: DOCUSATE SODIUM 100 MG CAPSULE (FP) PO SCH ×2 (11:19→21:31)
[2018-12-26] MEDS: amLODIPine BESYLATE 5 MG TABLET (FP) PO SCH (11:20)
[2018-12-26] MEDS: CALCITRIOL 0.25 MCG CAPSULE (FP) PO SCH (11:20)
[2018-12-26] MEDS: CARVEDILOL 25 MG TABLET (FP) PO SCH ×2 (11:20→21:31)
--- NOTE | 2018-12-26 15:06 | PN ---
Progress Note (short form) - Note Progress Note: 58 year old gentleman with history of hypertension and stage 5 CKD admitted for repair of a large umbilical hernia and insertion of peritioneal dialysis catheter. Patient reports some discomfort at the surgical and states that he is tolerating clear liquids and able to ambulate with assistance. He denies nausea or vomiting. Vitals: Vital Signs (72 hours) 12/23/18 12/23/18 12/23/18 18:00 20:16 21:55 Temperature 97.9 F 98.0 F Pulse Rate 80 82 Respiratory 18 18 22 H Rate Blood Pressure 153/95 151/97 O2 Sat by Pulse 93 L Oximetry (%) 12/24/18 12/24/18 12/24/18 01:31 06:00 09:00 Temperature 98.4 F 98.7 F Pulse Rate 82 93 H Respiratory 18 20 Rate Blood Pressure 148/94 154/101 H O2 Sat by Pulse 97 Oximetry (%) 12/24/18 12/24/18 12/24/18 10:00 13:18 13:20 Temperature 97.9 F 97.7 F Pulse Rate 87 80 76 Respiratory 20 22 H 20 Rate Blood Pressure 146/100 132/97 134/98 O2 Sat by Pulse Oximetry (%) 12/24/18 12/24/18 12/24/18 17:34 20:15 22:00 Temperature 96.5 F L 98.4 F Pulse Rate 75 83 Respiratory 20 20 22 H Rate Blood Pressure 128/79 141/90 O2 Sat by Pulse 97 Oximetry (%) 12/25/18 12/25/18 12/25/18 02:00 06:00 09:00 Temperature 98.3 F 98.1 F Pulse Rate 74 82 Respiratory 18 18 Rate Blood Pressure 137/85 145/80 O2 Sat by Pulse 95 Oximetry (%) 12/25/18 12/25/18 12/25/18 09:31 14:56 18:13 Temperature 97.9 F 97.5 F L 97.7 F Pulse Rate 77 74 74 Respiratory 18 18 18 Rate Blood Pressure 135/86 113/71 135/83 O2 Sat by Pulse Oximetry (%) 12/25/18 12/25/18 12/26/18 19:57 21:00 02:00 Temperature 98.1 F 97.4 F L Pulse Rate 81 67 Respiratory 18 20 20 Rate Blood Pressure 121/85 120/80 O2 Sat by Pulse 94 L Oximetry (%) 12/26/18 12/26/18 12/26/18 05:59 09:00 14:26 Temperature 98.5 F 97.9 F 98.3 F Pulse Rate 85 86 75 Respiratory 20 20 20 Rate Blood Pressure 130/81 131/79 108/74 O2 Sat by Pulse 96 Oximetry (%) HEENT: NC/AT, PERRLA, Pharynx: moist Neck: no JVD Lungs; coarse breath sound in both lung ahmadi Heart: S1 S2 regular, no gallop Abd: Obese, distended with surgical dressing, diminished bowel sounds Ext: Trace ankle edema Neuro: Cfo Controller focal deficit Labs CBC,CMP WBC 6.4 K/mm3 (4.0-10.0) 12/26/18 06:00 RBC 3.46 M/mm3 (4.00-5.60) L 12/26/18 06:00 Hgb 9.4 GM/dL (11.7-16.9) L 12/26/18 06:00 Hct 29.1 % (35.4-49) L 12/26/18 06:00 MCV 84.2 fl (80-96) 12/26/18 06:00 MCH 27.2 pg (25.7-33.7) 12/26/18 06:00 MCHC 32.3 g/dl (32.0-35.9) 12/26/18 06:00 RDW 16.6 % (11.9-15.9) H 12/26/18 06:00 Plt Count 219 K/MM3 (134-434) 12/26/18 06:00 MPV 8.6 fl (7.5-11.1) 12/26/18 06:00 Absolute Neuts (auto) 4.7 K/mm3 (1.5-8.0) 12/26/18 06:00 Neutrophils % 73.7 % (42.8-82.8) 12/26/18 06:00 Lymphocytes % 11.2 % (8-40) 12/26/18 06:00 Monocytes % 11.4 % (3.8-10.2) H 12/26/18 06:00 Eosinophils % 3.3 % (0-4.5) 12/26/18 06:00 Basophils % 0.4 % (0-2.0) 12/26/18 06:00 Nucleated RBC % 0 % (0-0) 12/26/18 06:00 Sodium 133 mmol/L (136-145) L 12/26/18 06:00 Potassium 5.8 mmol/L (3.5-5.1) H 12/26/18 06:00 Chloride 100 mmol/L (98-107) 12/26/18 06:00 Carbon Dioxide 19 mmol/L (21-32) L 12/26/18 06:00 Anion Gap 13 MMOL/L (8-16) 12/26/18 06:00 BUN 97 mg/dL (7-18) H 12/26/18 06:00 Creatinine 16.9 mg/dL (0.55-1.3) H* 12/26/18 06:00 Est GFR (CKD-EPI)AfAm 3.11 12/26/18 06:00 Est GFR (CKD-EPI)NonAf 2.69 12/26/18 06:00 Random Glucose 86 mg/dL (74-106) 12/26/18 06:00 Lactic Acid 1.5 mmol/L (0.4-2.0) 12/25/18 12:50 Calcium 8.5 mg/dL (8.5-10.1) 12/26/18 06:00 Phosphorus 8.9 mg/dL (2.5-4.9) H 12/26/18 06:00 Magnesium 1.6 mg/dL (1.8-2.4) L 12/26/18 06:00 Total Bilirubin 0.5 mg/dL (0.2-1) 12/24/18 06:00 AST 8 U/L (15-37) L 12/24/18 06:00 ALT 6 U/L (13-61) L 12/24/18 06:00 Alkaline Phosphatase 98 U/L (45-117) 12/24/18 06:00 Creatine Kinase 138 U/L (26-308) 12/22/18 11:41 Troponin I < 0.02 ng/ml (0.00-0.05) 12/22/18 11:41 Total Protein 7.2 g/dl (6.4-8.2) 12/24/18 06:00 Albumin 2.7 g/dl (3.4-5.0) L 12/24/18 06:00 A/P: 58 year old man with end stage renal disease who is awaiting initiation of trainng for peritoneal dialysis Will monitor serum lytes with particular attention to hyper-potassemia and hyperphosphatemia. Encouraged to ambulate more as tolerated. There is no immediate need for initiation of bridge hemodialysis Will follow.
--- NOTE | 2018-12-26 15:20 | PN ---
Progress Note, Physician Chief Complaint: Mr Aguilar says he continues to improve. Tolerating diet, +flatus. Denies cp, sob , n/v. - Current Medication List Current Medications: Active Medications Acetaminophen (Ofirmev Injection -) 1,000 mg IVPB Q6H PRN PRN Reason: PAIN OR FEVER Last Admin: 12/23/18 04:05 Dose: 1,000 mg Albuterol/Ipratropium (Duoneb -) 1 amp NEB Q4H PRN PRN Reason: SHORTNESS OF BREATH Last Admin: 12/25/18 20:45 Dose: 1 amp Amlodipine Besylate (Norvasc -) 5 mg PO DAILY [facility] Last Admin: 12/26/18 11:20 Dose: 5 mg Atorvastatin Calcium (Lipitor -) 10 mg PO HS [facility] Last Admin: 12/25/18 21:04 Dose: 10 mg Calcitriol (Rocaltrol -) 0.25 mcg PO DAILY [facility] Last Admin: 12/26/18 11:20 Dose: 0.25 mcg Calcium Acetate (Phoslo -) 1,334 mg PO TIDCM [facility] Last Admin: 12/26/18 11:19 Dose: 1,334 mg Carvedilol (Coreg -) 25 mg PO BID [facility] Last Admin: 12/26/18 11:20 Dose: 25 mg Docusate Sodium (Colace -) 100 mg PO BID [facility] Last Admin: 12/26/18 11:19 Dose: 100 mg Furosemide (Lasix Injection -) 80 mg IVPUSH BIDLASIX [facility] Last Admin: 12/26/18 05:50 Dose: 80 mg Heparin Sodium (Porcine) (Heparin -) 5,000 unit SQ TID [facility] Last Admin: 12/26/18 05:49 Dose: 5,000 unit Hydralazine HCl (Apresoline -) 25 mg PO BID [facility] Last Admin: 12/26/18 11:19 Dose: 25 mg Ondansetron HCl (Zofran Injection) 4 mg IVPUSH Q6H PRN PRN Reason: NAUSEA AND/OR VOMITING Oxycodone HCl (Roxicodone -) 5 mg PO Q6H PRN PRN Reason: PAIN LEVEL 7 - 10 Last Admin: 12/25/18 21:05 Dose: 5 mg Ranitidine HCl (Zantac -) 150 mg PO PRN [facility] Sodium Bicarbonate (Sodium Bicarbonate -) 650 mg PO TID [facility] Last Admin: 12/26/18 05:49 Dose: 650 mg Sodium Chloride ([place] Nasal [place] -) 2 spray NS Q12H PRN PRN Reason: NASAL CONGESTION Last Admin: 12/24/18 21:41 Dose: 2 inh Tamsulosin HCl (Flomax -) 0.4 mg PO HS [facility] Last Admin: 12/25/18 21:04 Dose: 0.4 mg - Objective Vital Signs: Vital Signs Temperature 36.8 C 12/26/18 14:26 Pulse Rate 75 12/26/18 14:26 Respiratory Rate 20 12/26/18 14:26 Blood Pressure 108/74 12/26/18 14:26 O2 Sat by Pulse Oximetry (%) 96 12/26/18 09:00 Constitutional: Yes: No Distress, Calm, Obese Cardiovascular: Yes: Regular Rate and Rhythm. No: Gallop, Murmur, Rub Respiratory: Yes: Regular, CTA Bilaterally. No: Rales, Rhonchi, Wheezes Gastrointestinal: Yes: Normal Bowel Sounds, Soft. No: Distention, Tenderness Extremities: Yes: WNL Edema: No Labs: CBC, BMP 12/26/18 06:00 INR, PTT INR 1.13 (0.83-1.09) H 12/23/18 23:10 Problem List - Problems (1) ESRD (end stage renal disease) Code(s): N18.6 - END STAGE RENAL DISEASE (2) Anemia Code(s): D64.9 - ANEMIA, UNSPECIFIED Qualifiers: Anemia type: due to chronic kidney disease Chronic kidney disease stage: stage 4 (severe) Qualified Code(s): N18.4 - Chronic kidney disease, stage 4 ( severe); D63.1 - Anemia in chronic kidney disease (3) CHF (congestive heart failure) Code(s): I50.9 - HEART FAILURE, UNSPECIFIED Qualifiers: Heart failure chronicity: chronic (4) COPD (chronic obstructive pulmonary disease) Code(s): J44.9 - CHRONIC OBSTRUCTIVE PULMONARY DISEASE, UNSPECIFIED (5) HTN (hypertension) Code(s): I10 - ESSENTIAL (PRIMARY) HYPERTENSION (6) Hyperlipidemia Code(s): E78.5 - HYPERLIPIDEMIA, UNSPECIFIED Qualifiers: Hyperlipidemia type: pure hypercholesterolemia Qualified Code(s): E78.00 - Pure hypercholesterolemia, unspecified; E78.0 - Pure hypercholesterolemia Assessment/Plan -nephrology note reviewed -no urgent need for dialysis per nephrology -continue IV lasix -monitor rising potassium -continue current management
[2018-12-26 15:32] LABS: CALCIUM 7.9 mg/dL (8.5-10.1); POTASSIUM 5.2 mmol/L (3.5-5.1)
[2018-12-26 15:39] LABS: CREATININE 16.7 mg/dL (0.55-1.3)
[2018-12-26] MEDS: oxyCODONE HCL 5 MG TABLET PO PRN (16:01)
[2018-12-26] MEDS ORDERED: RANITIDINE HCL 150 MG TABLET (FP) PO PRN (20:05)
[2018-12-26] MEDS: ALBUTEROL SO4 2.5/IPRATROPIUM 0.5 INH SOL 3 ML VIAL.NEB. NEB PRN (20:50)
[2018-12-26] MEDS: ATORVASTATIN CA 10 MG TABLET (FP) PO SCH (21:31)
[2018-12-26] MEDS: TAMSULOSIN HCL 0.4 MG CAP PO SCH (21:31)
[2018-12-26] MEDS: ACETAMINOPHEN 1000 MG/100 ML VIAL (NON FORMULARY) IVPB PRN (21:32)
[2018-12-27] MEDS: SODIUM BICARBONATE 650 MG TABLET PO SCH ×3 (05:48→22:31)
[2018-12-27] MEDS: HEPARIN NA (PORCINE) 5,000 UNITS/ML 1ML VIAL SQ SCH ×3 (05:49→22:29)
[2018-12-27] MEDS: FUROSEMIDE 40 MG/4 ML INJECTABLE VIAL IVPUSH SCH ×2 (05:49→13:22)
[2018-12-27 07:19] LABS: BASO % 0.3 % (0-2.0); EOS % 2.6 % (0-4.5); HEMATOCRIT 29.3 % (35.4-49); HEMOGLOBIN 9.4 GM/dL (11.7-16.9); LYMPH % 10.5 % (8-40); MCH 26.8 pg (25.7-33.7); MCHC 32.1 g/dl (32.0-35.9); MEAN CELL VOLUME 83.5 fl (80-96); MEAN PLT VOLUME 8.8 fl (7.5-11.1); MONO % 12.3 % (3.8-10.2); NEUT % 74.3 % (42.8-82.8); PLATELET COUNT 243 K/MM3 (134-434); RBC 3.51 M/mm3 (4.00-5.60); RDW 16.5 % (11.9-15.9); WHITE BLOOD COUNT 6.4 K/mm3 (4.0-10.0)
[2018-12-27 08:00] LABS: CALCIUM 8.5 mg/dL (8.5-10.1); PHOSPHOROUS 8.9 mg/dL (2.5-4.9); POTASSIUM 5.1 mmol/L (3.5-5.1)
[2018-12-27 08:30] LABS: CREATININE 17.4 mg/dL (0.55-1.3)
[2018-12-27] MEDS: CALCIUM ACETATE 667 MG CAPSULE (FP) PO SCH ×3 (08:43→16:47)
[2018-12-27] MEDS ORDERED: ACETAMINOPHEN 325 MG TABLET (FP) PO PRN (09:07)
[2018-12-27] MEDS ORDERED: PT OWN MED DRAWER 7, Y5N ONE (09:38)
[2018-12-27] MEDS: amLODIPine BESYLATE 5 MG TABLET (FP) PO SCH (09:39)
[2018-12-27] MEDS: hydrALAZINE HCL 25 MG TABLET (FP) PO SCH ×2 (09:39→22:31)
[2018-12-27] MEDS: CARVEDILOL 25 MG TABLET (FP) PO SCH ×2 (09:39→22:30)
[2018-12-27] MEDS: DOCUSATE SODIUM 100 MG CAPSULE (FP) PO SCH ×2 (09:40→22:30)
[2018-12-27] MEDS: CALCITRIOL 0.25 MCG CAPSULE (FP) PO SCH (09:40)
--- NOTE | 2018-12-27 09:55 | PN ---
Progress Note, Physician Chief Complaint: Mr Aguilar says he is feeling better. However nurse states that he had emesis overnight, was having difficulty drinking tea as it feels it is sitting in his chest, and worsening abdominal pain. Also received kayexalate last night and no bm. When asked patient stated that this happened but he is feeling better now. - Current Medication List Current Medications: Active Medications Acetaminophen (Tylenol -) 650 mg PO Q4H PRN PRN Reason: MILD PAIN Albuterol/Ipratropium (Duoneb -) 1 amp NEB Q4H PRN PRN Reason: SHORTNESS OF BREATH Last Admin: 12/26/18 20:50 Dose: 1 amp Amlodipine Besylate (Norvasc -) 5 mg PO DAILY [facility] Last Admin: 12/27/18 09:39 Dose: 5 mg Atorvastatin Calcium (Lipitor -) 10 mg PO HS [facility] Last Admin: 12/26/18 21:31 Dose: 10 mg Calcitriol (Rocaltrol -) 0.25 mcg PO DAILY [facility] Last Admin: 12/27/18 09:40 Dose: 0.25 mcg Calcium Acetate (Phoslo -) 1,334 mg PO TIDCM [facility] Last Admin: 12/27/18 08:43 Dose: 1,334 mg Carvedilol (Coreg -) 25 mg PO BID [facility] Last Admin: 12/27/18 09:39 Dose: 25 mg Docusate Sodium (Colace -) 100 mg PO BID [facility] Last Admin: 12/27/18 09:40 Dose: 100 mg Furosemide (Lasix Injection -) 80 mg IVPUSH BIDLASIX [facility] Last Admin: 12/27/18 05:49 Dose: 80 mg Heparin Sodium (Porcine) (Heparin -) 5,000 unit SQ TID [facility] Last Admin: 12/27/18 05:49 Dose: 5,000 unit Hydralazine HCl (Apresoline -) 25 mg PO BID [facility] Last Admin: 12/27/18 09:39 Dose: 25 mg Ondansetron HCl (Zofran Injection) 4 mg IVPUSH Q6H PRN PRN Reason: NAUSEA AND/OR VOMITING Oxycodone HCl (Roxicodone -) 5 mg PO Q6H PRN PRN Reason: PAIN LEVEL 7 - 10 Last Admin: 12/26/18 16:01 Dose: 5 mg Ranitidine HCl (Zantac -) 150 mg PO DAILY PRN PRN Reason: DYSPEPSIA Last Admin: 12/26/18 20:21 Dose: 150 mg Sodium Bicarbonate (Sodium Bicarbonate -) 650 mg PO TID [facility] Last Admin: 12/27/18 05:48 Dose: 650 mg Sodium Chloride ([place] Nasal [place] -) 2 spray NS Q12H PRN PRN Reason: NASAL CONGESTION Last Admin: 12/24/18 21:41 Dose: 2 inh Tamsulosin HCl (Flomax -) 0.4 mg PO HS [facility] Last Admin: 12/26/18 21:31 Dose: 0.4 mg - Objective Vital Signs: Vital Signs Temperature 37.4 C 12/27/18 06:00 Pulse Rate 90 12/27/18 06:00 Respiratory Rate 20 12/27/18 06:00 Blood Pressure 128/77 12/27/18 06:00 O2 Sat by Pulse Oximetry (%) 96 12/26/18 20:37 Constitutional: Yes: No Distress, Calm, Obese Cardiovascular: Yes: Regular Rate and Rhythm. No: Gallop, Murmur, Rub Respiratory: Yes: Regular, CTA Bilaterally. No: Rales, Rhonchi, Wheezes Gastrointestinal: Yes: Normal Bowel Sounds, Distention (worsening), Tenderness Extremities: Yes: WNL Edema: Yes Edema: LLE: 1+, RLE: 1+ Labs: CBC, BMP 12/27/18 06:00 12/27/18 06:00 INR, PTT INR 1.13 (0.83-1.09) H 12/23/18 23:10 Problem List - Problems (1) ESRD (end stage renal disease) Code(s): N18.6 - END STAGE RENAL DISEASE (2) Anemia Code(s): D64.9 - ANEMIA, UNSPECIFIED Qualifiers: Anemia type: due to chronic kidney disease Chronic kidney disease stage: stage 4 (severe) Qualified Code(s): N18.4 - Chronic kidney disease, stage 4 ( severe); D63.1 - Anemia in chronic kidney disease (3) CHF (congestive heart failure) Code(s): I50.9 - HEART FAILURE, UNSPECIFIED Qualifiers: Heart failure chronicity: chronic (4) COPD (chronic obstructive pulmonary disease) Code(s): J44.9 - CHRONIC OBSTRUCTIVE PULMONARY DISEASE, UNSPECIFIED (5) HTN (hypertension) Code(s): I10 - ESSENTIAL (PRIMARY) HYPERTENSION (6) Hyperlipidemia Code(s): E78.5 - HYPERLIPIDEMIA, UNSPECIFIED Qualifiers: Hyperlipidemia type: pure hypercholesterolemia Qualified Code(s): E78.00 - Pure hypercholesterolemia, unspecified; E78.0 - Pure hypercholesterolemia Assessment/Plan -concerning as patient is not improving -was hyperkalemic, improved with kayexalate -however has not had a bowel movement -will obtain stat CT A/P to evaluate since with emesis and worsening distention pain -will make npo -if needs further kayexalate, give rectally only until abdominal pain resolves and tolerating diet -will await nephrology recommendations on dialysis, patient may benefit from bridging HD considering worsening distention, need for kayexalate, and elevating creatinine -case d/w cardiology and monitoring on telemetry -continue current management
--- NOTE | 2018-12-27 10:08 | PN ---
Progress Note, Physician Chief Complaint: seen and examined Denies CP, SOB K+ improved. History of Present Illness: TELE: NSR- with a few very short episodes of PAF w/ aberrancy - Current Medication List Current Medications: Active Medications Acetaminophen (Tylenol -) 650 mg PO Q4H PRN PRN Reason: MILD PAIN Last Admin: 12/27/18 09:50 Dose: 650 mg Albuterol/Ipratropium (Duoneb -) 1 amp NEB Q4H PRN PRN Reason: SHORTNESS OF BREATH Last Admin: 12/26/18 20:50 Dose: 1 amp Amlodipine Besylate (Norvasc -) 5 mg PO DAILY [facility] Last Admin: 12/27/18 09:39 Dose: 5 mg Atorvastatin Calcium (Lipitor -) 10 mg PO HS [facility] Last Admin: 12/26/18 21:31 Dose: 10 mg Calcitriol (Rocaltrol -) 0.25 mcg PO DAILY [facility] Last Admin: 12/27/18 09:40 Dose: 0.25 mcg Calcium Acetate (Phoslo -) 1,334 mg PO TIDCM [facility] Last Admin: 12/27/18 08:43 Dose: 1,334 mg Carvedilol (Coreg -) 25 mg PO BID [facility] Last Admin: 12/27/18 09:39 Dose: 25 mg Docusate Sodium (Colace -) 100 mg PO BID [facility] Last Admin: 12/27/18 09:40 Dose: 100 mg Furosemide (Lasix Injection -) 80 mg IVPUSH BIDLASIX [facility] Last Admin: 12/27/18 05:49 Dose: 80 mg Heparin Sodium (Porcine) (Heparin -) 5,000 unit SQ TID [facility] Last Admin: 12/27/18 05:49 Dose: 5,000 unit Hydralazine HCl (Apresoline -) 25 mg PO BID [facility] Last Admin: 12/27/18 09:39 Dose: 25 mg Ondansetron HCl (Zofran Injection) 4 mg IVPUSH Q6H PRN PRN Reason: NAUSEA AND/OR VOMITING Oxycodone HCl (Roxicodone -) 5 mg PO Q6H PRN PRN Reason: PAIN LEVEL 7 - 10 Last Admin: 12/26/18 16:01 Dose: 5 mg Ranitidine HCl (Zantac -) 150 mg PO DAILY PRN PRN Reason: DYSPEPSIA Last Admin: 12/26/18 20:21 Dose: 150 mg Sodium Bicarbonate (Sodium Bicarbonate -) 650 mg PO TID [facility] Last Admin: 12/27/18 05:48 Dose: 650 mg Sodium Chloride ([place] Nasal [place] -) 2 spray NS Q12H PRN PRN Reason: NASAL CONGESTION Last Admin: 12/24/18 21:41 Dose: 2 inh Tamsulosin HCl (Flomax -) 0.4 mg PO HS [facility] Last Admin: 12/26/18 21:31 Dose: 0.4 mg - Objective Vital Signs: Vital Signs Temperature 99.4 F 12/27/18 06:00 Pulse Rate 90 12/27/18 06:00 Respiratory Rate 20 12/27/18 06:00 Blood Pressure 128/77 12/27/18 06:00 O2 Sat by Pulse Oximetry (%) 96 12/26/18 20:37 Constitutional: Yes: Calm Cardiovascular: Yes: Regular Rate and Rhythm Respiratory: Yes: CTA Bilaterally (no rales.) Gastrointestinal: Yes: Soft, Distention, Other (+ bowel sounds) Edema: Yes Edema: LLE: 1+, RLE: 1+ Neurological: Yes: Alert, Oriented Labs: CBC, BMP 12/27/18 06:00 12/27/18 06:00 INR, PTT INR 1.13 (0.83-1.09) H 12/23/18 23:10 - ....Imaging EKG: Image Reviewed Assessment/Plan Assessment/Plan echo 08/2017 nl LV/RV, no significant valvular pathology echo 10/2018 nl LV/RV function, mild MR, mild TR, mild AR, mild dilation of ao root mibi 08/2017 nl EF, no ischemia EKG: sinus, nl intervals, no ischemic changes CXR: no congestion tele: sr, again brief self limited episode AF w/ RVR and aberrancy A/P: 58M h/o EtOH abuse, CHF, HTN, CKD, COPD here for elective hernia surgery and PD catheter placement. 1. Resp distress, diastolic chf: -improved. -lasix and dialysis per renal 2. CKD: - s/p PD catheter - hyperkalemia: d/w Dr. [place] yesterday. Given Kayexalate with improvement in K+ , but no BM. -CT A/P planned to r/o ileus or obstruction 3. HTN: - cont current meds, norvasc, coreg, hydralazine. BP is at goal of < 140/90 4. HLD: - cont statin 5. PAF: overnight 12/23 and again short paroxyms seen overnight. Nothing sustained. -In setting of recent PD catheter placement and now concern for possible ileus or SBO?, will hold on AC and obtain CT scan . -Cont tele and beta jayro
--- NOTE | 2018-12-27 15:49 | PN ---
Progress Note (short form) - Note Progress Note: Vomited this AM, bilious. No fever. Passing flatus, no BM. Abd distended, soft with mild tenderness around umbilicus. Catheter site dressing soaked with serous fluid, no active drainage seen. Catehter flushed with 20 cc saline which aspirated easily. CT abd shows air throughout large and small bowel, proximal dilatation c/w ileus vs partial SBO. Imp: Post-op ileus. Plan: NG decompression.
--- NOTE | 2018-12-27 19:40 | PN ---
Progress Note (short form) - Note Progress Note: 58 year old gentleman with stage 5 chronic kidney disease admitted for repair of umbilical hernia and insertion of peritoneal dialysis catheter. Patient has an NGT to drain for relief of persistent post operative ileus. Patient reports occasional cramp. Vitals: Vital Signs Period Temp Pulse Resp BP Sys/Cannon Pulse Ox Last 24 Hr 98.5 F-99.4 F 85-90 20-94 121-137/77-91 95-96 Vital Signs - 24 hr 12/26/18 12/26/18 12/27/18 20:37 22:00 06:00 Temperature 98.5 F 99.4 F Pulse Rate 85 90 Respiratory 20 20 20 Rate Blood Pressure 130/91 128/77 O2 Sat by Pulse 96 Oximetry (%) 12/27/18 12/27/18 12/27/18 09:00 10:00 14:00 Temperature 98.8 F 99 F Pulse Rate 85 Respiratory 20 20 94 H Rate Blood Pressure 137/87 128/78 O2 Sat by Pulse 95 Oximetry (%) 12/27/18 12/27/18 18:00 18:30 Temperature 99.2 F Pulse Rate Respiratory 91 H 92 H Rate Blood Pressure 121/83 O2 Sat by Pulse 95 Oximetry (%) Lungs; Coarse breath sound in both lung ahmadi Heart: S1 S2 Regular Abd: Full, soft, non-tender Ext; Trace ankle edema Neuro: No asterexis. Labs CBC,CMP WBC 6.4 K/mm3 (4.0-10.0) 12/27/18 06:00 RBC 3.51 M/mm3 (4.00-5.60) L 12/27/18 06:00 Hgb 9.4 GM/dL (11.7-16.9) L 12/27/18 06:00 Hct 29.3 % (35.4-49) L 12/27/18 06:00 MCV 83.5 fl (80-96) 12/27/18 06:00 MCH 26.8 pg (25.7-33.7) 12/27/18 06:00 MCHC 32.1 g/dl (32.0-35.9) 12/27/18 06:00 RDW 16.5 % (11.9-15.9) H 12/27/18 06:00 Plt Count 243 K/MM3 (134-434) 12/27/18 06:00 MPV 8.8 fl (7.5-11.1) 12/27/18 06:00 Absolute Neuts (auto) 4.8 K/mm3 (1.5-8.0) 12/27/18 06:00 Neutrophils % 74.3 % (42.8-82.8) 12/27/18 06:00 Lymphocytes % 10.5 % (8-40) 12/27/18 06:00 Monocytes % 12.3 % (3.8-10.2) H 12/27/18 06:00 Eosinophils % 2.6 % (0-4.5) 12/27/18 06:00 Basophils % 0.3 % (0-2.0) 12/27/18 06:00 Nucleated RBC % 0 % (0-0) 12/27/18 06:00 Sodium 130 mmol/L (136-145) L 12/27/18 06:00 Potassium 5.1 mmol/L (3.5-5.1) 12/27/18 06:00 Chloride 96 mmol/L (98-107) L 12/27/18 06:00 Carbon Dioxide 20 mmol/L (21-32) L 12/27/18 06:00 Anion Gap 15 MMOL/L (8-16) 12/27/18 06:00 BUN 97 mg/dL (7-18) H 12/27/18 06:00 Creatinine 17.4 mg/dL (0.55-1.3) H* 12/27/18 06:00 Est GFR (CKD-EPI)AfAm 3.01 12/27/18 06:00 Est GFR (CKD-EPI)NonAf 2.59 12/27/18 06:00 Random Glucose 96 mg/dL (74-106) 12/27/18 06:00 Lactic Acid 1.5 mmol/L (0.4-2.0) 12/25/18 12:50 Calcium 8.5 mg/dL (8.5-10.1) 12/27/18 06:00 Phosphorus 8.9 mg/dL (2.5-4.9) H 12/27/18 06:00 Magnesium 2.0 mg/dL (1.8-2.4) 12/27/18 06:00 Total Bilirubin 0.5 mg/dL (0.2-1) 12/24/18 06:00 AST 8 U/L (15-37) L 12/24/18 06:00 ALT 6 U/L (13-61) L 12/24/18 06:00 Alkaline Phosphatase 98 U/L (45-117) 12/24/18 06:00 Creatine Kinase 138 U/L (26-308) 12/22/18 11:41 Troponin I < 0.02 ng/ml (0.00-0.05) 12/22/18 11:41 Total Protein 7.2 g/dl (6.4-8.2) 12/24/18 06:00 Albumin 2.7 g/dl (3.4-5.0) L 12/24/18 06:00 A/P:;;;Middle aged gentleman with essentially end stag renal disease. I have discussed with the patient the likelihood of initiating hemodialysis pending starting training for peritoneal dialysis. Patient is agreeable to this proposed plan. There is no indication for initiating acute hemodialysis today. Please repeat labs in A.M. Will follow
[2018-12-27] MEDS: ALBUTEROL SO4 2.5/IPRATROPIUM 0.5 INH SOL 3 ML VIAL.NEB. NEB PRN (20:10)
[2018-12-27] MEDS: ATORVASTATIN CA 10 MG TABLET (FP) PO SCH (22:30)
[2018-12-27] MEDS: TAMSULOSIN HCL 0.4 MG CAP PO SCH (22:31)
[2018-12-28] MEDS: FUROSEMIDE 40 MG/4 ML INJECTABLE VIAL IVPUSH SCH ×2 (05:52→16:50)
[2018-12-28] MEDS: SODIUM BICARBONATE 650 MG TABLET PO SCH ×3 (05:52→21:48)
[2018-12-28] MEDS: HEPARIN NA (PORCINE) 5,000 UNITS/ML 1ML VIAL SQ SCH ×3 (05:53→21:49)
[2018-12-28 06:56] LABS: BASO % 0.3 % (0-2.0); EOS % 2.1 % (0-4.5); HEMATOCRIT 27.1 % (35.4-49); HEMOGLOBIN 8.9 GM/dL (11.7-16.9); LYMPH % 11.6 % (8-40); MCH 27.3 pg (25.7-33.7); MCHC 32.8 g/dl (32.0-35.9); MEAN CELL VOLUME 83.2 fl (80-96); MEAN PLT VOLUME 9.2 fl (7.5-11.1); MONO % 14.5 % (3.8-10.2); NEUT % 71.5 % (42.8-82.8); PLATELET COUNT 241 K/MM3 (134-434); RBC 3.26 M/mm3 (4.00-5.60); RDW 16.5 % (11.9-15.9); WHITE BLOOD COUNT 4.5 K/mm3 (4.0-10.0)
[2018-12-28 07:25] LABS: CALCIUM 7.6 mg/dL (8.5-10.1); MAGNESIUM 1.7 mg/dL (1.8-2.4); PHOSPHOROUS 8.2 mg/dL (2.5-4.9); POTASSIUM 4.9 mmol/L (3.5-5.1)
[2018-12-28 07:28] LABS: CREATININE 16.9 mg/dL (0.55-1.3)
--- NOTE | 2018-12-28 07:58 | PN ---
Progress Note (short form) - Note Progress Note: POD 6, s/p Laparoscopy, Lysis of adhesions, Placement peritoneal dialysis catheter, and Open repair umbilical hernia. Pt seen and examined. Weekend events noted (pt with n/v, s/p NGT placement on ). Reports feeling slightly better after NGT placement. Abdomen is less "swollen" per pt. Reports 2 soft/loose BM's last night as well as passage of flatus. Breathing is slightly improved. Has been oob to the restroom Denies CP, calf pain/edema. Vital Signs Temp 98.8 F 12/28/18 06:00 Pulse 84 12/28/18 06:00 Resp 18 12/28/18 06:00 BP 123/76 12/28/18 06:00 Pulse Ox 94 L 12/27/18 21:00 Intake & Output 12/27/18 12/27/18 12/28/18 11:59 23:59 11:59 Intake Total 240 50 Output Total 700 1300 500 Balance -460 -1300 -450 Weight 242 lb Intake: IVPB 50 Oral 240 Output: Gastric Drainage 900 Urine 700 400 500 Void 700 400 500 Other: Voiding Method Urinal Urinal # Unmeasured Voids Void 1 1 Bowel Movement No No CBC, BMP 12/28/18 06:00 Gen: awake, alert, nad. Resp: Breathing comfortably on 3L O2, receiving nebulizer trtmt CV: rrr, s1s2 Abdo: NGT in place, approximately 200ml green bile is reservoir. Abdomen less distended than prior, + ttp at incision sites (improved from prior), no rebound , no guarding. Dressing with moderate serosanguinous drainage. removed, port incisions c/d/i with dermabond in place. Umbilical incision intact with moderate edema/ecchymosis. No drainage. PD catheter in place with serosanguinous drainage noted. New 4x4's, abd pads and tape placed over incisions and drain. Ext: No LE edema noted. A/P: 58 y/o M w/ PMHx CHF/cardiomyopathy, htn, COPD, CKD stage IV, HLD, h/o gi bleed, now POD 6, s/p Laparoscopy, Lysis of adhesions, Placement peritoneal dialysis catheter, and Open repair umbilical hernia. NGT with 900ml since placement, additional 200 ml since 6AM. UOP 1600ml in 24hrs 2BMs last night -Per renal pt will need HD prior to d/c, no plan for HD as of yesterday, AM labs pending -Keep NGT in place to suction -OOB as much as possible -Taper oxygen to keep pts sats above 95% -Keep dressing c/d/i -NPO -Monitor I&OS d/w attending Dr Hassan
--- NOTE | 2018-12-28 08:40 | PN ---
Progress Note (short form) - Note Progress Note: RENAL 58 STAGE 5 CKD EVENTS NOTED NG PLACED YESTERDAY ABD SOFT NON OLIGURIC LESS WHEEZY ON NC SATS 94 LASB NOTED BEST TO DIALYZE HIM VIA A PREMCATH AND DC ON HEMO WILL TRANSITION TO PD OUT PT WILL D/W DR WAYNE HAS NO MEDICAID NO CAR NEEDS TO APPLY FOR PARATRANSIT CASE D/W NURSE
--- NOTE | 2018-12-28 09:58 | PN ---
Progress Note, Physician Chief Complaint: SBO History of Present Illness: feels acid reflux and with it assctd chest heaviness. comes and goes. no sob. no palpit, leg swelling - Current Medication List Current Medications: Active Medications Acetaminophen (Tylenol -) 650 mg PO Q4H PRN PRN Reason: MILD PAIN Last Admin: 12/27/18 09:50 Dose: 650 mg Amlodipine Besylate (Norvasc -) 5 mg PO DAILY [facility] Last Admin: 12/27/18 09:39 Dose: 5 mg Atorvastatin Calcium (Lipitor -) 10 mg PO HS [facility] Last Admin: 12/27/18 22:30 Dose: 10 mg Calcitriol (Rocaltrol -) 0.25 mcg PO DAILY [facility] Last Admin: 12/27/18 09:40 Dose: 0.25 mcg Calcium Acetate (Phoslo -) 1,334 mg PO TIDCM [facility] Last Admin: 12/27/18 16:47 Dose: 1,334 mg Carvedilol (Coreg -) 25 mg PO BID [facility] Last Admin: 12/27/18 22:30 Dose: 25 mg Docusate Sodium (Colace -) 100 mg PO BID [facility] Last Admin: 12/27/18 22:30 Dose: 100 mg Furosemide (Lasix Injection -) 80 mg IVPUSH BIDLASIX [facility] Last Admin: 12/28/18 05:52 Dose: 80 mg Heparin Sodium (Porcine) (Heparin -) 5,000 unit SQ TID [facility] Last Admin: 12/28/18 05:53 Dose: 5,000 unit Hydralazine HCl (Apresoline -) 25 mg PO BID [facility] Last Admin: 12/27/18 22:31 Dose: 25 mg Ondansetron HCl (Zofran Injection) 4 mg IVPUSH Q6H PRN PRN Reason: NAUSEA AND/OR VOMITING Oxycodone HCl (Roxicodone -) 5 mg PO Q6H PRN PRN Reason: PAIN LEVEL 7 - 10 Last Admin: 12/26/18 16:01 Dose: 5 mg Ranitidine HCl (Zantac -) 150 mg PO DAILY PRN PRN Reason: DYSPEPSIA Last Admin: 12/26/18 20:21 Dose: 150 mg Sodium Bicarbonate (Sodium Bicarbonate -) 650 mg PO TID [facility] Last Admin: 12/28/18 05:52 Dose: 650 mg Sodium Chloride ([place] Nasal [place] -) 2 spray NS Q12H PRN PRN Reason: NASAL CONGESTION Last Admin: 12/24/18 21:41 Dose: 2 inh Tamsulosin HCl (Flomax -) 0.4 mg PO HS [facility] Last Admin: 12/27/18 22:31 Dose: 0.4 mg - Objective Vital Signs: Vital Signs Temperature 98.8 F 12/28/18 06:00 Pulse Rate 84 12/28/18 06:00 Respiratory Rate 18 12/28/18 06:00 Blood Pressure 123/76 12/28/18 06:00 O2 Sat by Pulse Oximetry (%) 94 L 12/27/18 21:00 Constitutional: Yes: Well Nourished, No Distress, Calm Cardiovascular: Yes: Regular Rate and Rhythm, S1, S2. No: Gallop, Murmur Respiratory: Yes: Regular, CTA Bilaterally. No: Accessory Muscle Use, Rales, Wheezes Extremities: No: Cold Edema: No Neurological: Yes: Alert, Oriented Psychiatric: No: Agitated Labs: CBC, BMP 12/28/18 06:00 12/28/18 06:00 INR, PTT INR 1.13 (0.83-1.09) H 12/23/18 23:10 Assessment/Plan echo 08/2017 nl LV/RV, no significant valvular pathology echo 10/2018 nl LV/RV function, mild MR, mild TR, mild AR, mild dilation of ao root mibi 08/2017 nl EF, no ischemia EKG: sinus, nl intervals, no ischemic changes CXR: no congestion tele: NSR A/P: 58M h/o EtOH abuse, CHF, HTN, CKD, COPD here for elective hernia surgery and PD catheter placement. s/p lysis of adhesions, placement peritoneal dialysis catheter, and open repair umbilical hernia 12/22. CT 12/27 + SBO: -per hospitalist, surgery -hold AC for parox AF until clearly out of the serrato without need for recurrent interventions PAF: overnight 12/23 and again short paroxyms seen overnight. Nothing sustained. -In setting of recent PD catheter placement and new SBO on CT scan 12/27, holding AC for now--? will need repeat intervention -no AF presently on tele--continue monitoring -cont beta jayro as doing Resp distress, diastolic chf: -improved, appears euvolemic at present -lasix and dialysis per renal CKD: - s/p PD catheter - hyperkalemia: d/w Dr. [place] yesterday. Given Kayexalate with improvement in K+ , but no BM. - CT A/P planned to r/o ileus or obstruction HTN: - bp controlled - cont current meds: norvasc, coreg, hydralazine. BP is at goal of < 140/90 HLD: - cont statin
[2018-12-28] MEDS: DOCUSATE SODIUM 100 MG CAPSULE (FP) PO SCH ×2 (10:30→21:48)
[2018-12-28] MEDS: hydrALAZINE HCL 25 MG TABLET (FP) PO SCH ×2 (10:30→21:49)
[2018-12-28] MEDS: amLODIPine BESYLATE 5 MG TABLET (FP) PO SCH (10:30)
[2018-12-28] MEDS: CALCIUM ACETATE 667 MG CAPSULE (FP) PO SCH ×3 (10:31→18:02)
[2018-12-28] MEDS: CALCITRIOL 0.25 MCG CAPSULE (FP) PO SCH (10:31)
--- NOTE | 2018-12-28 10:36 | PN ---
Progress Note, Physician Chief Complaint: Mr Aguilar says he is feeling better after the NGT was placed. Overnight had 2 bowel movements. Today denies cp, sob, n/v. - Current Medication List Current Medications: Active Medications Acetaminophen (Tylenol -) 650 mg PO Q4H PRN PRN Reason: MILD PAIN Last Admin: 12/27/18 09:50 Dose: 650 mg Amlodipine Besylate (Norvasc -) 5 mg PO DAILY [facility] Last Admin: 12/28/18 10:30 Dose: 5 mg Atorvastatin Calcium (Lipitor -) 10 mg PO HS [facility] Last Admin: 12/27/18 22:30 Dose: 10 mg Calcitriol (Rocaltrol -) 0.25 mcg PO DAILY [facility] Last Admin: 12/28/18 10:31 Dose: 0.25 mcg Calcium Acetate (Phoslo -) 1,334 mg PO TIDCM [facility] Last Admin: 12/28/18 10:31 Dose: 1,334 mg Carvedilol (Coreg -) 25 mg PO BID [facility] Last Admin: 12/27/18 22:30 Dose: 25 mg Docusate Sodium (Colace -) 100 mg PO BID [facility] Last Admin: 12/28/18 10:30 Dose: 100 mg Furosemide (Lasix Injection -) 80 mg IVPUSH BIDLASIX [facility] Last Admin: 12/28/18 05:52 Dose: 80 mg Heparin Sodium (Porcine) (Heparin -) 5,000 unit SQ TID [facility] Last Admin: 12/28/18 05:53 Dose: 5,000 unit Hydralazine HCl (Apresoline -) 25 mg PO BID [facility] Last Admin: 12/28/18 10:30 Dose: 25 mg Ondansetron HCl (Zofran Injection) 4 mg IVPUSH Q6H PRN PRN Reason: NAUSEA AND/OR VOMITING Oxycodone HCl (Roxicodone -) 5 mg PO Q6H PRN PRN Reason: PAIN LEVEL 7 - 10 Last Admin: 12/26/18 16:01 Dose: 5 mg Ranitidine HCl (Zantac -) 150 mg PO DAILY PRN PRN Reason: DYSPEPSIA Last Admin: 12/26/18 20:21 Dose: 150 mg Sodium Bicarbonate (Sodium Bicarbonate -) 650 mg PO TID [facility] Last Admin: 12/28/18 05:52 Dose: 650 mg Sodium Chloride ([place] Nasal [place] -) 2 spray NS Q12H PRN PRN Reason: NASAL CONGESTION Last Admin: 12/24/18 21:41 Dose: 2 inh Tamsulosin HCl (Flomax -) 0.4 mg PO HS [facility] Last Admin: 12/27/18 22:31 Dose: 0.4 mg - Objective Vital Signs: Vital Signs Temperature 37.1 C 12/28/18 06:00 Pulse Rate 84 12/28/18 06:00 Respiratory Rate 18 12/28/18 06:00 Blood Pressure 123/76 12/28/18 06:00 O2 Sat by Pulse Oximetry (%) 94 L 12/27/18 21:00 Constitutional: Yes: No Distress, Calm, Obese Cardiovascular: Yes: Regular Rate and Rhythm. No: Gallop, Murmur, Rub Respiratory: Yes: Regular, CTA Bilaterally. No: Rales, Rhonchi, Wheezes Gastrointestinal: Yes: Soft, Distention, Hypoactive Bowel Sounds. No: Tenderness Extremities: Yes: WNL Edema: No Labs: CBC, BMP 12/28/18 06:00 12/28/18 06:00 INR, PTT INR 1.13 (0.83-1.09) H 12/23/18 23:10 Problem List - Problems (1) ESRD (end stage renal disease) Code(s): N18.6 - END STAGE RENAL DISEASE (2) Anemia Code(s): D64.9 - ANEMIA, UNSPECIFIED Qualifiers: Anemia type: due to chronic kidney disease Chronic kidney disease stage: stage 4 (severe) Qualified Code(s): N18.4 - Chronic kidney disease, stage 4 ( severe); D63.1 - Anemia in chronic kidney disease (3) CHF (congestive heart failure) Code(s): I50.9 - HEART FAILURE, UNSPECIFIED Qualifiers: Heart failure chronicity: chronic (4) COPD (chronic obstructive pulmonary disease) Code(s): J44.9 - CHRONIC OBSTRUCTIVE PULMONARY DISEASE, UNSPECIFIED (5) HTN (hypertension) Code(s): I10 - ESSENTIAL (PRIMARY) HYPERTENSION (6) Hyperlipidemia Code(s): E78.5 - HYPERLIPIDEMIA, UNSPECIFIED Qualifiers: Hyperlipidemia type: pure hypercholesterolemia Qualified Code(s): E78.00 - Pure hypercholesterolemia, unspecified; E78.0 - Pure hypercholesterolemia Assessment/Plan -case d/w Dr Ventura and Dr Hassan -NGT in place, continue LIWS and npo -will need HD prior to discharge -permacatheter to be placed -patient appears improved today -defer to surgery when safe to remove NGT and restart diet -otherwise continue current management
[2018-12-28] MEDS: CARVEDILOL 25 MG TABLET (FP) PO SCH ×2 (11:15→21:49)
[2018-12-28] MEDS ORDERED: LIDOCAINE HCL 1%, 10 MG/ML (20ML VIAL) ONE (12:31)
[2018-12-28] MEDS ORDERED: ONDANSETRON 4 MG/2 ML VIAL IVPUSH PRN ×3 (12:34→14:12)
[2018-12-28] MEDS ORDERED: PROMETHAZINE HCL 25 MG/1 ML VIAL IVPUSH PRN (12:34)
[2018-12-28] MEDS ORDERED: LACTATED RINGERS SOLUTION 1,000 ML IV SCH ×2 (12:45→14:12)
[2018-12-28] MEDS ORDERED: MIDAZOLAM HCL 2 MG/2 ML SINGLE DOSE VIAL ONE (13:01)
[2018-12-28] MEDS ORDERED: SODIUM CHLORIDE 0.9% P/F 10 ML VIAL IJ ONE (13:02)
[2018-12-28] MEDS ORDERED: ceFAZolin SODIUM 1 GM VIAL ONE ×2 (13:02→13:23)
[2018-12-28] MEDS ORDERED: LIDOCAINE HCL 1%, 10 MG/ML (20ML VIAL) NR ONE (13:28)
--- NOTE | 2018-12-28 13:50 | OP ---
Operative Note - Note: Operative Date: 12/28/18 Pre-Operative Diagnosis: ESRD Operation: Placement Permacath Findings: Patent right IJV Implants: 19 cm ttc permacath Post-Operative Diagnosis: Same as Pre-op Surgeon: Daniel Hassan Anesthesiologist/SEO EXECUTIVE: Jus Butler Anesthesia: Fractional
[2018-12-28] MEDS ORDERED: RANITIDINE HCL 150 MG TABLET (FP) PO PRN (14:12)
[2018-12-28] MEDS ORDERED: SODIUM CHLORIDE NASAL SPRAY 44 ML BOTTLE NS PRN (14:12)
[2018-12-28] MEDS ORDERED: PROMETHAZINE HCL 25 MG/1 ML VIAL IVPB PRN (14:12)
[2018-12-28] MEDS ORDERED: FUROSEMIDE 40 MG/4 ML INJECTABLE VIAL ONE (16:42)
[2018-12-28] MEDS: TAMSULOSIN HCL 0.4 MG CAP PO SCH (21:48)
[2018-12-28] MEDS: ATORVASTATIN CA 10 MG TABLET (FP) PO SCH (21:48)
[2018-12-28] MEDS: ACETAMINOPHEN 325 MG TABLET (FP) PO PRN (21:49)
[2018-12-29] MEDS: ACETAMINOPHEN 325 MG TABLET (FP) PO PRN ×2 (03:14→21:19)
[2018-12-29] MEDS: SODIUM BICARBONATE 650 MG TABLET PO SCH ×3 (05:47→21:18)
[2018-12-29] MEDS: FUROSEMIDE 40 MG/4 ML INJECTABLE VIAL IVPUSH SCH ×2 (05:47→15:57)
[2018-12-29] MEDS: HEPARIN NA (PORCINE) 5,000 UNITS/ML 1ML VIAL SQ SCH ×3 (05:47→21:18)
--- NOTE | 2018-12-29 08:23 | PN ---
Progress Note, Physician Chief Complaint: POD1 s/p permacath placement under MAC - Current Medication List Current Medications: Active Medications Acetaminophen (Tylenol -) 650 mg PO Q4H PRN PRN Reason: MILD PAIN Last Admin: 12/29/18 03:14 Dose: 650 mg Amlodipine Besylate (Norvasc -) 5 mg PO DAILY [facility] Atorvastatin Calcium (Lipitor -) 10 mg PO HS [facility] Last Admin: 12/28/18 21:48 Dose: 10 mg Calcitriol (Rocaltrol -) 0.25 mcg PO DAILY [facility] Calcium Acetate (Phoslo -) 1,334 mg PO TIDCM [facility] Last Admin: 12/28/18 18:02 Dose: 1,334 mg Carvedilol (Coreg -) 25 mg PO BID [facility] Last Admin: 12/28/18 21:49 Dose: 25 mg Docusate Sodium (Colace -) 100 mg PO BID [facility] Last Admin: 12/28/18 21:48 Dose: 100 mg Fentanyl (Sublimaze Injection -) 50 mcg IVPUSH [id number] PRN PRN Reason: PAIN-PACU ORDER X 4 DOSES ONLY Furosemide (Lasix Injection -) 80 mg IVPUSH BIDLASIX [facility] Last Admin: 12/29/18 05:47 Dose: 80 mg Heparin Sodium (Porcine) (Heparin -) 5,000 unit SQ TID [facility] Last Admin: 12/29/18 05:47 Dose: 5,000 unit Hydralazine HCl (Apresoline -) 25 mg PO BID [facility] Last Admin: 12/28/18 21:49 Dose: 25 mg Ondansetron HCl (Zofran Injection) 4 mg IVPUSH Q6H PRN PRN Reason: NAUSEA AND/OR VOMITING Ondansetron HCl (Zofran Injection) 4 mg IVPUSH Q6H PRN PRN Reason: NAUSEA AND/OR VOMITING Promethazine HCl (Phenergan Injection -) 12.5 mg IVPB Q6H PRN PRN Reason: NAUSEA-FOR RESCUE AFTER 15 MIN Ranitidine HCl (Zantac -) 150 mg PO DAILY PRN PRN Reason: DYSPEPSIA Sodium Bicarbonate (Sodium Bicarbonate -) 650 mg PO TID [facility] Last Admin: 12/29/18 05:47 Dose: 650 mg Sodium Chloride ([place] Nasal [place] -) 2 spray NS Q12H PRN PRN Reason: NASAL CONGESTION Tamsulosin HCl (Flomax -) 0.4 mg PO HS [facility] Last Admin: 12/28/18 21:48 Dose: 0.4 mg - Objective Vital Signs: Vital Signs Temperature 99.0 F 12/29/18 06:00 Pulse Rate 87 12/29/18 06:00 Respiratory Rate 18 12/29/18 06:00 Blood Pressure 117/68 12/29/18 06:00 O2 Sat by Pulse Oximetry (%) 97 12/28/18 21:00 Labs: CBC, BMP 12/28/18 06:00 12/28/18 06:00 INR, PTT INR 1.13 (0.83-1.09) H 12/23/18 23:10 Assessment/Plan Pt has no complaints, and is doing well after permacath placement yesterday, under MAC anesthesia. Pt has no nausea/vomiting/pain associated with the procedure, and overall no anesthetic issues/complications. Please continue current management.
--- NOTE | 2018-12-29 08:35 | PN ---
Progress Note (short form) - Note Progress Note: Looks more comfortable. NG out with no vomiting ABd full, soft, less tenderness. Serous drainage from catheter site Permacath no bleeding Labs pending ?Dialysis today Increase activity AXR
[2018-12-29] MEDS: CALCIUM ACETATE 667 MG CAPSULE (FP) PO SCH ×3 (09:45→17:34)
[2018-12-29] MEDS: hydrALAZINE HCL 25 MG TABLET (FP) PO SCH ×2 (09:45→21:18)
[2018-12-29] MEDS: CARVEDILOL 25 MG TABLET (FP) PO SCH ×2 (09:46→21:18)
[2018-12-29] MEDS: DOCUSATE SODIUM 100 MG CAPSULE (FP) PO SCH ×2 (09:46→21:19)
[2018-12-29] MEDS ORDERED: amLODIPine BESYLATE 5 MG TABLET (FP) PO SCH (10:00)
[2018-12-29] MEDS ORDERED: CALCITRIOL 0.25 MCG CAPSULE (FP) PO SCH (10:00)
--- NOTE | 2018-12-29 10:39 | PN ---
Progress Note (short form) - Note Progress Note: s: abd pain improving, wants to eat. sob improving. no chest pain, palps, dizziness. Current Medications Acetaminophen (Tylenol -) 650 mg PO Q4H PRN PRN Reason: MILD PAIN Last Admin: 12/29/18 03:14 Dose: 650 mg Amlodipine Besylate (Norvasc -) 5 mg PO DAILY [facility] Last Admin: 12/29/18 09:46 Dose: 5 mg Atorvastatin Calcium (Lipitor -) 10 mg PO HS [facility] Last Admin: 12/28/18 21:48 Dose: 10 mg Calcitriol (Rocaltrol -) 0.25 mcg PO DAILY [facility] Last Admin: 12/29/18 09:46 Dose: 0.25 mcg Calcium Acetate (Phoslo -) 1,334 mg PO TIDCM [facility] Last Admin: 12/29/18 09:45 Dose: 1,334 mg Carvedilol (Coreg -) 25 mg PO BID [facility] Last Admin: 12/29/18 09:46 Dose: 25 mg Docusate Sodium (Colace -) 100 mg PO BID [facility] Last Admin: 12/29/18 09:46 Dose: 100 mg Fentanyl (Sublimaze Injection -) 50 mcg IVPUSH [id number] PRN PRN Reason: PAIN-PACU ORDER X 4 DOSES ONLY Furosemide (Lasix Injection -) 80 mg IVPUSH BIDLASIX [facility] Last Admin: 12/29/18 05:47 Dose: 80 mg Heparin Sodium (Porcine) (Heparin -) 5,000 unit SQ TID [facility] Last Admin: 12/29/18 05:47 Dose: 5,000 unit Hydralazine HCl (Apresoline -) 25 mg PO BID [facility] Last Admin: 12/29/18 09:45 Dose: 25 mg Ondansetron HCl (Zofran Injection) 4 mg IVPUSH Q6H PRN PRN Reason: NAUSEA AND/OR VOMITING Ondansetron HCl (Zofran Injection) 4 mg IVPUSH Q6H PRN PRN Reason: NAUSEA AND/OR VOMITING Promethazine HCl (Phenergan Injection -) 12.5 mg IVPB Q6H PRN PRN Reason: NAUSEA-FOR RESCUE AFTER 15 MIN Ranitidine HCl (Zantac -) 150 mg PO DAILY PRN PRN Reason: DYSPEPSIA Sodium Bicarbonate (Sodium Bicarbonate -) 650 mg PO TID [facility] Last Admin: 12/29/18 05:47 Dose: 650 mg Sodium Chloride ([place] Nasal [place] -) 2 spray NS Q12H PRN PRN Reason: NASAL CONGESTION Tamsulosin HCl (Flomax -) 0.4 mg PO HS [facility] Last Admin: 12/28/18 21:48 Dose: 0.4 mg Vital Signs Period Temp Pulse Resp BP Sys/Cannon Pulse Ox Last 24 Hr 97.8 F-99.0 F 78-87 15-20 117-140/68-92 95-99 Constitutional: Yes: Well Nourished, No Distress, Calm Cardiovascular: Yes: Regular Rate and Rhythm, S1, S2. No: Gallop, Murmur Respiratory: Yes: Regular, CTA Bilaterally. No: Accessory Muscle Use, Rales, Wheezes Extremities: No: Cold Edema: No Neurological: Yes: Alert, Oriented Psychiatric: No: Agitated no jaundice Assessment/Plan echo 08/2017 nl LV/RV, no significant valvular pathology echo 10/2018 nl LV/RV function, mild MR, mild TR, mild AR, mild dilation of ao root mibi 08/2017 nl EF, no ischemia EKG: sinus, nl intervals, no ischemic changes CXR: no congestion tele: NSR A/P: 58M h/o EtOH abuse, CHF, HTN, CKD, COPD here for elective hernia surgery and PD catheter placement. s/p lysis of adhesions, placement peritoneal dialysis catheter, and open repair umbilical hernia 12/22. CT 12/27 + SBO: -per hospitalist, surgery -hold AC for parox AF until no planned interventions PAF: overnight 12/23 and again short paroxyms seen overnight. Nothing sustained. -In setting of recent PD catheter placement and new SBO on CT scan 12/27, holding AC for now -no AF presently on tele--continue monitoring -cont beta jayro as doing Resp distress, diastolic chf: -improved, appears euvolemic at present -lasix and dialysis per renal CKD: - s/p PD catheter - hyperkalemia improved with kayexalate HTN: - bp controlled - cont current meds: norvasc, coreg, hydralazine. BP is at goal of < 140/90 HLD: - cont statin
--- NOTE | 2018-12-29 12:05 | OP ---
DATE OF OPERATION: 12/28/2018 SURGEON: Daniel Wayne MD PROCEDURE: Placement of PermCath. PREOPERATIVE DIAGNOSIS: Renal failure. POSTOPERATIVE DIAGNOSIS: Renal failure. ANESTHESIA: Fractional. ANESTHESIOLOGIST: Jus Butler M.D. OPERATIVE FINDINGS: The right internal jugular vein was patent on ultrasound evaluation, with normal phasic flow. OPERATIVE PROCEDURE: Following routine patient identification, intravenous sedation was established. The right neck and chest were prepped with ChloraPrep. Using real time duplex imaging the right internal jugular vein was identified and was patent. Lidocaine 1% was infiltrated in the skin and subcutaneous tissues lateral to the vein, and the vein was cannulated under ultrasound guidance with a Micropuncture needle. A wire was passed proximally under fluoroscopic guidance. The needle was exchanged for a 5-Martiniquais catheter. The wire was exchanged for a J-tip wire, which was advanced through the superior vena cava into the right atrium. Additional Xylocaine was infiltrated in the chest wall. A stab wound made. A 19-cm tip to cuff PermCath was advanced with a tunneler from the chest to the neck. The tract around the wire was then dilated under fluoroscopic guidance, and then introducer was placed in the superior vena cava. The tip of the PermCath was then advanced through the introducer and positioned in the right atrium. The introducer was peeled away. Each lumen was aspirated for blood and flushed with saline and heparin solution. The catheter was sutured to the skin at the exit site with 3-0 nylon. The neck wound was closed with a subcuticular suture of 3-0 Vicryl. Sterile dressings were applied and the patient was taken to the recovery room. DANIEL WAYNE M.D. [id number]
[2018-12-29 14:02] LABS: BASO % 0.3 % (0-2.0); EOS % 3.6 % (0-4.5); HEMATOCRIT 27.5 % (35.4-49); HEMOGLOBIN 8.9 GM/dL (11.7-16.9); LYMPH % 10.8 % (8-40); MCH 26.9 pg (25.7-33.7); MCHC 32.2 g/dl (32.0-35.9); MEAN CELL VOLUME 83.6 fl (80-96); MEAN PLT VOLUME 8.8 fl (7.5-11.1); MONO % 7.8 % (3.8-10.2); NEUT % 77.5 % (42.8-82.8); PLATELET COUNT 240 K/MM3 (134-434); RBC 3.29 M/mm3 (4.00-5.60); RDW 16.6 % (11.9-15.9); WHITE BLOOD COUNT 3.6 K/mm3 (4.0-10.0)
[2018-12-29 14:24] LABS: CALCIUM 7.4 mg/dL (8.5-10.1); MAGNESIUM 1.8 mg/dL (1.8-2.4); PHOSPHOROUS 6.9 mg/dL (2.5-4.9); POTASSIUM 3.7 mmol/L (3.5-5.1)
[2018-12-29 14:38] LABS: CREATININE 13.4 mg/dL (0.55-1.3)
--- NOTE | 2018-12-29 14:50 | PN ---
Progress Note, Physician Chief Complaint: Mr Aguilar says he is feeling hungry, NGT fell out on its own. Up walking without difficulty. Denies cp, sob, n/v. - Current Medication List Current Medications: Active Medications Acetaminophen (Tylenol -) 650 mg PO Q4H PRN PRN Reason: MILD PAIN Last Admin: 12/29/18 03:14 Dose: 650 mg Amlodipine Besylate (Norvasc -) 5 mg PO DAILY [facility] Last Admin: 12/29/18 09:46 Dose: 5 mg Atorvastatin Calcium (Lipitor -) 10 mg PO HS [facility] Last Admin: 12/28/18 21:48 Dose: 10 mg Calcitriol (Rocaltrol -) 0.25 mcg PO DAILY [facility] Last Admin: 12/29/18 09:46 Dose: 0.25 mcg Calcium Acetate (Phoslo -) 1,334 mg PO TIDCM [facility] Last Admin: 12/29/18 12:27 Dose: 1,334 mg Carvedilol (Coreg -) 25 mg PO BID [facility] Last Admin: 12/29/18 09:46 Dose: 25 mg Docusate Sodium (Colace -) 100 mg PO BID [facility] Last Admin: 12/29/18 09:46 Dose: 100 mg Fentanyl (Sublimaze Injection -) 50 mcg IVPUSH [id number] PRN PRN Reason: PAIN-PACU ORDER X 4 DOSES ONLY Furosemide (Lasix Injection -) 80 mg IVPUSH BIDLASIX [facility] Last Admin: 12/29/18 05:47 Dose: 80 mg Heparin Sodium (Porcine) (Heparin -) 5,000 unit SQ TID [facility] Last Admin: 12/29/18 05:47 Dose: 5,000 unit Hydralazine HCl (Apresoline -) 25 mg PO BID [facility] Last Admin: 12/29/18 09:45 Dose: 25 mg Ondansetron HCl (Zofran Injection) 4 mg IVPUSH Q6H PRN PRN Reason: NAUSEA AND/OR VOMITING Ondansetron HCl (Zofran Injection) 4 mg IVPUSH Q6H PRN PRN Reason: NAUSEA AND/OR VOMITING Promethazine HCl (Phenergan Injection -) 12.5 mg IVPB Q6H PRN PRN Reason: NAUSEA-FOR RESCUE AFTER 15 MIN Ranitidine HCl (Zantac -) 150 mg PO DAILY PRN PRN Reason: DYSPEPSIA Sodium Bicarbonate (Sodium Bicarbonate -) 650 mg PO TID [facility] Last Admin: 12/29/18 05:47 Dose: 650 mg Sodium Chloride ([place] Nasal [place] -) 2 spray NS Q12H PRN PRN Reason: NASAL CONGESTION Tamsulosin HCl (Flomax -) 0.4 mg PO HS [facility] Last Admin: 12/28/18 21:48 Dose: 0.4 mg - Objective Vital Signs: Vital Signs Temperature 37.1 C 12/29/18 10:00 Pulse Rate 80 12/29/18 14:24 Respiratory Rate 16 12/29/18 14:24 Blood Pressure 109/59 L 12/29/18 14:24 O2 Sat by Pulse Oximetry (%) 97 12/29/18 09:00 Constitutional: Yes: No Distress, Calm, Obese Cardiovascular: Yes: Regular Rate and Rhythm. No: Gallop, Murmur, Rub Respiratory: Yes: Regular, CTA Bilaterally. No: Rales, Rhonchi, Wheezes Gastrointestinal: Yes: Soft, Distention, Hypoactive Bowel Sounds (but present). No: Tenderness Extremities: Yes: WNL Edema: Yes Edema: LLE: 1+, RLE: 1+ Labs: CBC, BMP 12/29/18 13:38 12/29/18 13:38 INR, PTT INR 1.13 (0.83-1.09) H 12/23/18 23:10 Problem List - Problems (1) ESRD (end stage renal disease) Code(s): N18.6 - END STAGE RENAL DISEASE (2) Anemia Code(s): D64.9 - ANEMIA, UNSPECIFIED Qualifiers: Anemia type: due to chronic kidney disease Chronic kidney disease stage: stage 4 (severe) Qualified Code(s): N18.4 - Chronic kidney disease, stage 4 ( severe); D63.1 - Anemia in chronic kidney disease (3) CHF (congestive heart failure) Code(s): I50.9 - HEART FAILURE, UNSPECIFIED Qualifiers: Heart failure chronicity: chronic (4) COPD (chronic obstructive pulmonary disease) Code(s): J44.9 - CHRONIC OBSTRUCTIVE PULMONARY DISEASE, UNSPECIFIED (5) HTN (hypertension) Code(s): I10 - ESSENTIAL (PRIMARY) HYPERTENSION (6) Hyperlipidemia Code(s): E78.5 - HYPERLIPIDEMIA, UNSPECIFIED Qualifiers: Hyperlipidemia type: pure hypercholesterolemia Qualified Code(s): E78.00 - Pure hypercholesterolemia, unspecified; E78.0 - Pure hypercholesterolemia Assessment/Plan -permacath placed yesterday -planning for HD today -CM/SW aware of need for HD as an outpatient with transportation -NGT out, patient passing gas and having flatus -will begin clear liquid diet to see if can tolerate since saying he is hungry -advance as tolerated -continue current management -hopefully can discharge in next 48-72 hours pending tolerating diet and setting up HD and transport
--- NOTE | 2018-12-29 15:37 | PN ---
Progress Note (short form) - Note Progress Note: Patient is seen today undergoing the prescribed hemodialysis. States that he is feeling better. Denies any further episode of nausea or vomiting. Vitals : Vital Signs (72 hours) 12/26/18 12/26/18 12/27/18 20:37 22:00 06:00 Temperature 98.5 F 99.4 F Pulse Rate 85 90 Respiratory 20 20 20 Rate Blood Pressure 130/91 128/77 O2 Sat by Pulse 96 Oximetry (%) 12/27/18 12/27/18 12/27/18 09:00 10:00 14:00 Temperature 98.8 F 99 F Pulse Rate 85 Respiratory 20 20 94 H Rate Blood Pressure 137/87 128/78 O2 Sat by Pulse 95 Oximetry (%) 12/27/18 12/27/18 12/27/18 18:00 18:30 21:00 Temperature 99.2 F Pulse Rate Respiratory 91 H 92 H Rate Blood Pressure 121/83 O2 Sat by Pulse 95 94 L Oximetry (%) 12/27/18 12/28/18 12/28/18 22:00 02:00 06:00 Temperature 98 F 99.0 F 98.8 F Pulse Rate 87 83 84 Respiratory 18 18 18 Rate Blood Pressure 135/84 123/84 123/76 O2 Sat by Pulse Oximetry (%) 12/28/18 12/28/18 12/28/18 09:00 10:00 13:50 Temperature 98.4 F 98.9 F Pulse Rate 88 83 Respiratory 18 18 16 Rate Blood Pressure 139/74 125/87 O2 Sat by Pulse 94 L 99 Oximetry (%) 12/28/18 12/28/18 12/28/18 14:05 14:20 14:35 Temperature Pulse Rate 82 85 78 Respiratory 16 16 18 Rate Blood Pressure 140/92 140/92 136/92 O2 Sat by Pulse 98 98 96 Oximetry (%) 12/28/18 12/28/18 12/28/18 14:50 15:05 15:20 Temperature Pulse Rate 83 82 79 Respiratory 16 15 15 Rate Blood Pressure 117/85 122/82 117/79 O2 Sat by Pulse 95 98 95 Oximetry (%) 12/28/18 12/28/18 12/28/18 15:35 15:40 15:55 Temperature 97.9 F Pulse Rate 81 81 80 Respiratory 18 16 17 Rate Blood Pressure 127/71 121/77 123/85 O2 Sat by Pulse 95 96 96 Oximetry (%) 12/28/18 12/28/18 12/28/18 16:05 21:00 22:00 Temperature 97.8 F 98.3 F Pulse Rate 78 84 Respiratory 15 20 Rate Blood Pressure 123/85 129/77 O2 Sat by Pulse 97 Oximetry (%) 12/29/18 12/29/18 12/29/18 02:00 06:00 09:00 Temperature 98.9 F 99.0 F Pulse Rate 78 87 Respiratory 18 18 18 Rate Blood Pressure 123/68 117/68 O2 Sat by Pulse 97 Oximetry (%) 12/29/18 12/29/18 12/29/18 10:00 12:30 12:45 Temperature 98.8 F Pulse Rate 83 80 72 Respiratory 18 18 18 Rate Blood Pressure 130/83 123/78 118/72 O2 Sat by Pulse Oximetry (%) 12/29/18 12/29/18 12/29/18 13:00 13:15 13:45 Temperature Pulse Rate 73 74 80 Respiratory 18 18 18 Rate Blood Pressure 107/69 111/66 100/64 O2 Sat by Pulse Oximetry (%) 12/29/18 12/29/18 12/29/18 14:15 14:24 14:45 Temperature Pulse Rate 80 80 74 Respiratory 18 16 18 Rate Blood Pressure 111/71 109/59 L 123/69 O2 Sat by Pulse Oximetry (%) 12/29/18 15:15 Temperature Pulse Rate 80 Respiratory 18 Rate Blood Pressure 122/78 O2 Sat by Pulse Oximetry (%) Lungs; Moderate air entry bilat Heart: S1 S2 regular Abd; Full, soft, surgical dressing and mild tenderness at surgical site. Ext: Trace bipedal edema Neuro. No gross focality Access: positive right chest wall hemocath Labs: CBCD WBC 3.6 K/mm3 (4.0-10.0) L 12/29/18 13:38 RBC 3.29 M/mm3 (4.00-5.60) L 12/29/18 13:38 Hgb 8.9 GM/dL (11.7-16.9) L 12/29/18 13:38 Hct 27.5 % (35.4-49) L 12/29/18 13:38 MCV 83.6 fl (80-96) 12/29/18 13:38 MCHC 32.2 g/dl (32.0-35.9) 12/29/18 13:38 RDW 16.6 % (11.9-15.9) H 12/29/18 13:38 Plt Count 240 K/MM3 (134-434) 12/29/18 13:38 MPV 8.8 fl (7.5-11.1) 12/29/18 13:38 CMP Sodium 136 mmol/L (136-145) 12/29/18 13:38 Potassium 3.7 mmol/L (3.5-5.1) 12/29/18 13:38 Chloride 100 mmol/L (98-107) 12/29/18 13:38 Carbon Dioxide 26 mmol/L (21-32) 12/29/18 13:38 Anion Gap 11 MMOL/L (8-16) 12/29/18 13:38 BUN 80 mg/dL (7-18) H 12/29/18 13:38 Creatinine 13.4 mg/dL (0.55-1.3) H* 12/29/18 13:38 Calcium 7.4 mg/dL (8.5-10.1) L 12/29/18 13:38 Total Bilirubin 0.5 mg/dL (0.2-1) 12/24/18 06:00 AST 8 U/L (15-37) L 12/24/18 06:00 ALT 6 U/L (13-61) L 12/24/18 06:00 Alkaline Phosphatase 98 U/L (45-117) 12/24/18 06:00 Total Protein 7.2 g/dl (6.4-8.2) 12/24/18 06:00 Albumin 2.7 g/dl (3.4-5.0) L 12/24/18 06:00 A/P; 58 year old man with end stage renal disease admitted for repair of large umbilical hernia and insertion of peritoneal dialysis catheter. Patiet is presently started on hemodialysis pending initiation of peritoneal dialysis Patient is for repeat hemodialysis in a.m. Will follow.
[2018-12-29 15:57] LABS: CALCIUM 7.7 mg/dL (8.5-10.1); POTASSIUM 4.1 mmol/L (3.5-5.1)
[2018-12-29 16:00] LABS: CREATININE 16.9 mg/dL (0.55-1.3)
[2018-12-29 16:12] VITALS: BMI 31.7
[2018-12-29] MEDS: TAMSULOSIN HCL 0.4 MG CAP PO SCH (21:18)
[2018-12-29] MEDS: ATORVASTATIN CA 10 MG TABLET (FP) PO SCH (21:18)
[2018-12-30] MEDS: FUROSEMIDE 40 MG/4 ML INJECTABLE VIAL IVPUSH SCH (06:25)
[2018-12-30] MEDS: SODIUM BICARBONATE 650 MG TABLET PO SCH (06:25)
[2018-12-30] MEDS: HEPARIN NA (PORCINE) 5,000 UNITS/ML 1ML VIAL SQ SCH ×3 (06:25→21:10)
[2018-12-30] MEDS: CALCIUM ACETATE 667 MG CAPSULE (FP) PO SCH ×3 (07:56→17:42)
[2018-12-30 08:05] LABS: BASO % 0.2 % (0-2.0); HEMATOCRIT 25.8 % (35.4-49); HEMOGLOBIN 8.4 GM/dL (11.7-16.9); LYMPH % 15.2 % (8-40); MCH 27.1 pg (25.7-33.7); MCHC 32.6 g/dl (32.0-35.9); MEAN CELL VOLUME 83.2 fl (80-96); MEAN PLT VOLUME 8.8 fl (7.5-11.1); MONO % 19.4 % (3.8-10.2); NEUT % 62.2 % (42.8-82.8); PLATELET COUNT 248 K/MM3 (134-434); RDW 16.4 % (11.9-15.9); WHITE BLOOD COUNT 5.1 K/mm3 (4.0-10.0)
--- NOTE | 2018-12-30 08:25 | PN ---
Progress Note (short form) - Note Progress Note: VSS Abd full, soft, passing flatus, no vomiting On HD May take sips. Otherwise keep NPO until GI function returns.
[2018-12-30 08:29] LABS: EPI CELLS 3.5 /HPF (0-5/HPF); HYALINE CASTS 4 /lpf (0-8); URINE APPEARANCE CLEAR; URINE BACTERIA 6.1 /hpf (NEGATIVE); URINE BILIRUBIN NEGATIVE (NEGATIVE); URINE COLOR YELLOW; URINE GLUCOSE (UA) NEGATIVE (NEGATIVE); URINE KETONE NEGATIVE (NEGATIVE); URINE LEUK ESTERASE TRACE (NEGATIVE); URINE NITRITE NEGATIVE (NEGATIVE); URINE PROTEIN 3+ (NEGATIVE); URINE RBC 1 /hpf (0-4); URINE UROBILINOGEN 0.2 mg/dL (0.2-1.0); URINE WBC 14 /hpf (0-5)
[2018-12-30 08:40] LABS: CALCIUM 7.7 mg/dL (8.5-10.1); MAGNESIUM 1.7 mg/dL (1.8-2.4); PHOSPHOROUS 5.6 mg/dL (2.5-4.9); POTASSIUM 3.7 mmol/L (3.5-5.1)
[2018-12-30 09:13] LABS: CREATININE 12.7 mg/dL (0.55-1.3)
--- NOTE | 2018-12-30 09:51 | PN ---
Progress Note (short form) - Note Progress Note: RENAL 58 ESRD EVENTS NOTED SBO RESOLVING NG OUT ADVANCE DIET TODAY SEEN AT HD HIPS 20 NR K3 CA2.5 [facility] 1 KG DC HOME THURS ONCE OUT PT ARRANGEMNETS CONFORMED BP LOW DC HYDRALAZINE SWITCH NORVAC TO HS COREG 25 BID HOLD PRE HD SWITCH LASIX TO 80 PO BID DC CALCITRIOL AND PO BICARB CALL FOR QUESTIONS ON DC MEDS DR FORMAN [phone]
[2018-12-30] MEDS: DOCUSATE SODIUM 100 MG CAPSULE (FP) PO SCH ×2 (11:14→21:10)
[2018-12-30] MEDS: CARVEDILOL 25 MG TABLET (FP) PO SCH ×2 (11:14→21:10)
--- NOTE | 2018-12-30 11:16 | PN ---
Progress Note (short form) - Note Progress Note: s: s/p HD today. sob improved. no chest pain, palps, dizziness. Current Medications Acetaminophen (Tylenol -) 650 mg PO Q4H PRN PRN Reason: MILD PAIN Last Admin: 12/29/18 21:19 Dose: 650 mg Amlodipine Besylate (Norvasc -) 5 mg PO [facility] Atorvastatin Calcium (Lipitor -) 10 mg PO [facility] Last Admin: 12/29/18 21:18 Dose: 10 mg Calcium Acetate (Phoslo -) 1,334 mg PO TIDCM [facility] Last Admin: 12/30/18 07:56 Dose: Not Given Carvedilol (Coreg -) 25 mg PO BID [facility] Last Admin: 12/29/18 21:18 Dose: 25 mg Docusate Sodium (Colace -) 100 mg PO BID [facility] Last Admin: 12/29/18 21:19 Dose: 100 mg Fentanyl (Sublimaze Injection -) 50 mcg IVPUSH [id number] PRN PRN Reason: PAIN-PACU ORDER X 4 DOSES ONLY Furosemide (Lasix -) 80 mg PO BID@0600,1400 [facility] Heparin Sodium (Porcine) (Heparin -) 5,000 unit SQ TID [facility] Last Admin: 12/30/18 06:25 Dose: 5,000 unit Ondansetron HCl (Zofran Injection) 4 mg IVPUSH Q6H PRN PRN Reason: NAUSEA AND/OR VOMITING Ondansetron HCl (Zofran Injection) 4 mg IVPUSH Q6H PRN PRN Reason: NAUSEA AND/OR VOMITING Promethazine HCl (Phenergan Injection -) 12.5 mg IVPB Q6H PRN PRN Reason: NAUSEA-FOR RESCUE AFTER 15 MIN Ranitidine HCl (Zantac -) 150 mg PO DAILY PRN PRN Reason: DYSPEPSIA Sodium Chloride ([place] Nasal [place] -) 2 spray NS Q12H PRN PRN Reason: NASAL CONGESTION Tamsulosin HCl (Flomax -) 0.4 mg PO [facility] Last Admin: 12/29/18 21:18 Dose: 0.4 mg Vital Signs Period Temp Pulse Resp BP Sys/Cannon Pulse Ox Last 24 Hr 97.9 F-100.5 F 70-84 16-20 98-139/59-88 100 Constitutional: Yes: Well Nourished, No Distress, Calm Cardiovascular: Yes: Regular Rate and Rhythm, S1, S2. No: Gallop, Murmur Respiratory: Yes: Regular, CTA Bilaterally. No: Accessory Muscle Use, Rales, Wheezes Extremities: No: Cold Edema: No Neurological: Yes: Alert, Oriented Psychiatric: No: Agitated no jaundice Assessment/Plan echo 08/2017 nl LV/RV, no significant valvular pathology echo 10/2018 nl LV/RV function, mild MR, mild TR, mild AR, mild dilation of ao root mibi 08/2017 nl EF, no ischemia EKG: sinus, nl intervals, no ischemic changes CXR: no congestion tele: NSR A/P: 58M h/o EtOH abuse, CHF, HTN, CKD, COPD here for elective hernia surgery and PD catheter placement. s/p lysis of adhesions, placement peritoneal dialysis catheter, and open repair umbilical hernia 12/22. CT 12/27 + SBO: -per hospitalist, surgery -hold AC for parox AF until no planned interventions PAF: overnight 12/23 and again short paroxyms seen overnight. Nothing sustained. -In setting of recent PD catheter placement and new SBO on CT scan 12/27, holding AC for now -no AF presently on tele--continue monitoring -cont beta jayro as doing Resp distress, diastolic chf: -improved, appears euvolemic at present -lasix and dialysis per renal CKD: - s/p PD catheter - hyperkalemia improved with kayexalate HTN: - bp controlled - cont current meds: norvasc, coreg, hydralazine. BP is at goal of < 140/90 HLD: - cont statin
[2018-12-30 12:21] LABS: HBSAG SCREEN Negative (Negative); HEP A AB, IGM Negative (Negative); HEP B CORE AB, TOT Negative (Negative)
--- NOTE | 2018-12-30 12:40 | PN ---
Physical Exam: SUBJECTIVE: Patient seen and examined, passing gas, tolerating clears well, no nausea. no BM yet. Soreness around surgery site but denies any abdominal pain. Breathing improving, Currently getting dialyzed. OBJECTIVE: Vital Signs Period Temp Pulse Resp BP Sys/Cannon Pulse Ox Last 24 Hr 97.9 F-100.5 F 70-89 16-20 98-139/59-88 100 Intake & Output 12/27/18 12/28/18 12/29/18 12/30/18 23:59 23:59 23:59 23:59 Intake Total 240 200 240 Output Total 1999 505 450 300 Balance -1760 -305 -210 -300 Weight 242 lb 234 lb 234 lb GENERAL: alert awake, oriented, no acute distress, able to speak in full sentences Neck: soft, supple, no JVD visualized Chest; decreased breath sounds at bases, decreased air entry all over Abdomen: soft, distended, pos bowel sounds, dressing clean, mild tenderness around the surgical site, no voluntary or involuntary guarding or rigidity Extremities: 1+ pedal edema Psych: pleasant, co-operative Laboratory Results - last 24 hr 12/29/18 12/29/18 12/29/18 12:45 12:45 13:38 WBC 3.6 L RBC 3.29 L Hgb 8.9 L Hct 27.5 L MCV 83.6 MCH 26.9 MCHC 32.2 RDW 16.6 H Plt Count 240 MPV 8.8 Absolute Neuts (auto) 2.8 Neutrophils % 77.5 Lymphocytes % 10.8 Monocytes % 7.8 Eosinophils % 3.6 Basophils % 0.3 Nucleated RBC % 0 Sodium 137 Potassium 4.1 Chloride 104 Carbon Dioxide 18 L Anion Gap 14 BUN 113 H* Creatinine 16.9 H* Est GFR (CKD-EPI)AfAm 3.11 Est GFR (CKD-EPI)NonAf 2.69 Random Glucose 83 Calcium 7.7 L Phosphorus Magnesium Urine Color Urine Appearance Urine pH Ur Specific [place] Urine Protein Urine Glucose (UA) Urine Ketones Urine Blood Urine Nitrite Urine Bilirubin Urine Urobilinogen Ur Leukocyte Esterase Urine WBC (Auto) Urine RBC (Auto) Urine Casts (Auto) U Epithel Cells (Auto) Urine Bacteria (Auto) Hep A IgM Ab Confirm Negative Hepatitis A Ab Total Positive H Hep Bs Antigen Negative Hep Bs Antibody Non reactive Hep B Core Total Ab Negative Hep C Ab Diagnostic <0.1 12/29/18 12/30/18 12/30/18 13:38 05:43 07:30 WBC 5.1 RBC 3.10 L Hgb 8.4 L Hct 25.8 L MCV 83.2 MCH 27.1 MCHC 32.6 RDW 16.4 H Plt Count 248 MPV 8.8 Absolute Neuts (auto) 3.2 Neutrophils % 62.2 Lymphocytes % 15.2 D Monocytes % 19.4 H D Eosinophils % 3.0 Basophils % 0.2 Nucleated RBC % 0 Sodium 136 Potassium 3.7 Chloride 100 Carbon Dioxide 26 Anion Gap 11 BUN 80 H Creatinine 13.4 H* Est GFR (CKD-EPI)AfAm 4.12 Est GFR (CKD-EPI)NonAf 3.56 Random Glucose 118 H Calcium 7.4 L Phosphorus 6.9 H Magnesium 1.8 Urine Color Yellow Urine Appearance Clear Urine pH 5.0 Ur Specific [place] 1.014 Urine Protein 3+ H Urine Glucose (UA) Negative Urine Ketones Negative Urine Blood Negative Urine Nitrite Negative Urine Bilirubin Negative Urine Urobilinogen 0.2 Ur Leukocyte Esterase Trace Urine WBC (Auto) 14 Urine RBC (Auto) 1 Urine Casts (Auto) 4 U Epithel Cells (Auto) 3.5 Urine Bacteria (Auto) 6.1 Hep A IgM Ab Confirm Hepatitis A Ab Total Hep Bs Antigen Hep Bs Antibody Hep B Core Total Ab Hep C Ab Diagnostic 12/30/18 07:30 WBC RBC Hgb Hct MCV MCH MCHC RDW Plt Count MPV Absolute Neuts (auto) Neutrophils % Lymphocytes % Monocytes % Eosinophils % Basophils % Nucleated RBC % Sodium 137 Potassium 3.7 Chloride 99 Carbon Dioxide 27 Anion Gap 10 BUN 67 H Creatinine 12.7 H* Est GFR (CKD-EPI)AfAm 4.40 Est GFR (CKD-EPI)NonAf 3.80 Random Glucose 98 Calcium 7.7 L Phosphorus 5.6 H Magnesium 1.7 L Urine Color Urine Appearance Urine pH Ur Specific [place] Urine Protein Urine Glucose (UA) Urine Ketones Urine Blood Urine Nitrite Urine Bilirubin Urine Urobilinogen Ur Leukocyte Esterase Urine WBC (Auto) Urine RBC (Auto) Urine Casts (Auto) U Epithel Cells (Auto) Urine Bacteria (Auto) Hep A IgM Ab Confirm Hepatitis A Ab Total Hep Bs Antigen Hep Bs Antibody Hep B Core Total Ab Hep C Ab Diagnostic Active Medications Generic Name Dose Route Start Last Admin Trade Name Freq PRN Reason Stop Dose Admin Acetaminophen 650 mg 12/28/18 14:12 12/29/18 21:19 Tylenol - PO 650 mg Q4H PRN Administration MILD PAIN Amlodipine Besylate 5 mg 12/30/18 22:00 Norvasc - PO HS WANDA Atorvastatin Calcium 10 mg 12/28/18 22:00 12/29/18 21:18 Lipitor - PO 10 mg HS WANDA Administration Calcium Acetate 1,334 mg 12/28/18 17:30 12/30/18 11:14 Phoslo - PO 1,334 mg TIDCM [facility] Administration Carvedilol 25 mg 12/28/18 22:00 12/30/18 11:14 Coreg - PO 25 mg BID WANDA Administration Docusate Sodium 100 mg 12/28/18 22:00 12/30/18 11:14 Colace - PO 100 mg BID [facility] Administration Fentanyl 50 mcg 12/28/18 14:12 Sublimaze Injection - IVPUSH [id number] PRN PAIN-PACU ORDER X 4 DOSES ONLY Furosemide 80 mg 12/30/18 14:00 Lasix - PO BID@0600,1400 [facility] Heparin Sodium (Porcine) 5,000 unit 12/28/18 22:00 12/30/18 06:25 Heparin - SQ 5,000 unit TID [facility] Administration Ondansetron HCl 4 mg 12/28/18 14:12 Zofran Injection IVPUSH Q6H PRN NAUSEA AND/OR VOMITING Ondansetron HCl 4 mg 12/28/18 14:12 Zofran Injection IVPUSH Q6H PRN NAUSEA AND/OR VOMITING Promethazine HCl 12.5 mg 12/28/18 14:12 Phenergan Injection - IVPB Q6H PRN NAUSEA-FOR RESCUE AFTER 15 MIN Ranitidine HCl 150 mg 12/28/18 14:12 Zantac - PO DAILY PRN DYSPEPSIA Sodium Chloride 2 spray 12/28/18 14:12 [place] Nasal [place] - NS Q12H PRN NASAL CONGESTION Tamsulosin HCl 0.4 mg 12/28/18 22:00 12/29/18 21:18 Flomax - PO 0.4 mg HS WANDA Administration Home Medications Medication Instructions Recorded Calcitriol [Calcitriol -] 0.25 mcg PO DAILY 03/19/18 Carvedilol [Coreg -] 25 mg PO BID 03/19/18 Furosemide [Lasix] 40 mg PO BID PRN 03/19/18 Simvastatin 20 mg PO HS 03/19/18 Tamsulosin HCl [Flomax] 0.4 mg PO HS 03/19/18 Amlodipine Besylate [Norvasc -] 5 mg PO DAILY #30 tablet 03/25/18 Hydralazine HCl 25 mg PO BID 10/12/18 Calcium Acetate [Phoslo -] 667 mg PO TIDCM #45 capsule 10/15/18 Ranitidine HCl [Zantac] 150 mg PO PRN 12/22/18 ASSESSMENT/PLAN: 58 yom with PMhx of ESRD, Diastolic dysfunction, prior h/oTHC/cocaine use/ cardiomyopathy, alcohol abuse,HTN, COPD, BPH, admitted for elective peritoneal dialysis catheter placement/Laparoscopic FAWN/Open umbilical hernia repair 12/22, admitted with post op hypoxia/hyperkalemia, started on HD, course complicated by paroxysmal post op Afib and SBO -s/p FAWN/PD catheter placement/Open umbilical hernia repair 12/22 -Post op hypoxic respiratory failure, suspect from acute diastolic HF exacerbation in the setting volume resuscitation, compounded by COPD+/- RAJI/ poor effort -Hyperkalemia -ESRD, on HD via permacath started inhouse, eventual plan for PD -SBO vs post op ileus -Post op paroxysmal new onset atrial fibrillation with RVR -Diastolic dysfunction -HTN -COPD -Alcohol abuse -Prior h/o THC/Cocaine use -Cardiomyopathy -BPH -Hypomagnesemia Plan: On HD, discussed with Dr. Ventura, Plan for d/c on HD with eventual PD outpatient once abdominal issues resolved. Hep panel noted. Follow up with CM for outpatient HD arrangements. Lasix per renal. Tolerating clears well, advance to regular diet, serial abdominal exams. Low grade fever x 1 overnight, ua noted. No focal s/s concerning for infection. Encouraged patient to use incentive spirometry, monitor for now. Encourage ambulation. Oxygenation improved. Assess for ambulatory oxygen needs. Cardiology input noted. No AC for now given recent surgery and active abdominal concerns. Continue coreg/amlodipine/statin Replete Mg. Continue phoslo/flomax DVTPPX heparin Dispo plan for d/c in 24 hours if tolerating diet well and outpatient HD arrangements made. Plan discussed with patient, nursing in detail, all questions answered. Care co-ordinated with surgery/nephrology. Visit type - Emergency Visit Emergency Visit: Yes ED Registration Date: 12/22/18 Care time: The patient presented to the Emergency Department on the above date and was hospitalized for further evaluation of their emergent condition. - New Patient This patient is new to me today: No - Critical Care Critical Care patient: No - Discharge Referral Referred to [facility] No
[2018-12-30] MEDS: MAGNESIUM OXIDE 400 MG TABLET (FP) PO SCH (13:58)
[2018-12-30] MEDS: FUROSEMIDE 40 MG TABLET (FP) PO SCH (13:58)
[2018-12-30] MEDS: ACETAMINOPHEN 325 MG TABLET (FP) PO PRN (21:10)
[2018-12-30] MEDS: TAMSULOSIN HCL 0.4 MG CAP PO SCH (21:10)
[2018-12-30] MEDS: ATORVASTATIN CA 10 MG TABLET (FP) PO SCH (21:10)
[2018-12-30] MEDS ORDERED: amLODIPine BESYLATE 5 MG TABLET (FP) PO SCH (22:00)
[2018-12-31] MEDS: HEPARIN NA (PORCINE) 5,000 UNITS/ML 1ML VIAL SQ SCH (05:45)
[2018-12-31] MEDS: FUROSEMIDE 40 MG TABLET (FP) PO SCH (05:45)
[2018-12-31 06:16] LABS: BASO % 0.3 % (0-2.0); EOS % 2.8 % (0-4.5); HEMATOCRIT 26.2 % (35.4-49); HEMOGLOBIN 8.5 GM/dL (11.7-16.9); LYMPH % 19.8 % (8-40); MCHC 32.3 g/dl (32.0-35.9); MEAN CELL VOLUME 83.5 fl (80-96); MEAN PLT VOLUME 8.8 fl (7.5-11.1); MONO % 16.6 % (3.8-10.2); NEUT % 60.5 % (42.8-82.8); PLATELET COUNT 235 K/MM3 (134-434); RBC 3.14 M/mm3 (4.00-5.60); RDW 16.7 % (11.9-15.9); WHITE BLOOD COUNT 5.8 K/mm3 (4.0-10.0)
[2018-12-31 06:32] LABS: CALCIUM 7.7 mg/dL (8.5-10.1); MAGNESIUM 1.8 mg/dL (1.8-2.4); PHOSPHOROUS 4.7 mg/dL (2.5-4.9); POTASSIUM 3.8 mmol/L (3.5-5.1)
[2018-12-31] MEDS: CALCIUM ACETATE 667 MG CAPSULE (FP) PO SCH ×2 (09:12→11:46)
[2018-12-31] MEDS: DOCUSATE SODIUM 100 MG CAPSULE (FP) PO SCH ×2 (09:12→11:46)
[2018-12-31] MEDS: ACETAMINOPHEN 325 MG TABLET (FP) PO PRN (09:14)
[2018-12-31 09:21] VITALS: BP 110/71; PULSE 81; TEMP 97.7
[2018-12-31 09:44] LABS: CREATININE 9.4 mg/dL (0.55-1.3)
--- NOTE | 2018-12-31 10:51 | DS ---
Physical Exam: SUBJECTIVE: Patient seen and examined, no fevers, chills, cough. Breathing improved. Tolerating diet well. Had 2 large BM yesterday, no new abdominal pain , diarrhea or vomiting noted. OBJECTIVE: Vital Signs Period Temp Pulse Resp BP Sys/Cannon Pulse Ox Last 24 Hr 97.7 F-100.4 F 75-89 16-20 106-132/63-85 95-98 Intake & Output 12/28/18 12/29/18 12/30/18 12/31/18 23:59 23:59 23:59 23:59 Intake Total 200 240 720 100 Output Total 505 450 300 200 Balance -305 -210 420 -100 Weight 234 lb 234 lb 234 lb PHYSICAL EXAM GENERAL: The patient is awake, alert, and fully oriented, in no acute distress. HEAD: Normal with no signs of trauma. EYES: PERRL, extraocular movements intact, sclera anicteric, conjunctiva clear. ENT: Ears normal, nares patent, oropharynx clear without exudates, moist mucous membranes. NECK: soft, supple LUNGS: Bibasilar rales HEART: Regular rate and rhythm, S1, S2 ABDOMEN: Soft, improved distension, mild soreness around surgical site, no voluntary or involuntary guarding or rigidity, normoactive bowel sounds, dressing clean, no active discharge o bleed EXTREMITIES: 1+ pedal pitting edema NEUROLOGICAL: Cranial nerves II through XII grossly intact. Normal speech, gait not observed. PSYCH: Normal mood, normal affect. SKIN: Warm, dry, normal turgor, no rashes or lesions noted. LABS Laboratory Results - last 24 hr 12/29/18 12/31/18 12/31/18 12:45 05:30 05:30 WBC 5.8 RBC 3.14 L Hgb 8.5 L Hct 26.2 L MCV 83.5 MCH 27.0 MCHC 32.3 RDW 16.7 H Plt Count 235 MPV 8.8 Absolute Neuts (auto) 3.5 Neutrophils % 60.5 Lymphocytes % 19.8 D Monocytes % 16.6 H Eosinophils % 2.8 Basophils % 0.3 Nucleated RBC % 0 Sodium 139 Potassium 3.8 Chloride 100 Carbon Dioxide 31 Anion Gap 7 L BUN 40 H Creatinine 9.4 H* Est GFR (CKD-EPI)AfAm 6.33 Est GFR (CKD-EPI)NonAf 5.46 Random Glucose 90 Calcium 7.7 L Phosphorus 4.7 Magnesium 1.8 Hep A IgM Ab Confirm Negative Hepatitis A Ab Total Positive H Hep Bs Antigen Negative Hep Bs Antibody Non reactive Hep B Core Total Ab Negative CT A/P: Multiple dilated fluid-filled jejunal bowel loops are noted with a 5 cm maximum luminal diameter consistent with obstruction. Duodenal dilatation is also seen as well as mild to moderate gastric distention. The ileum distally as well as the colon demonstrate a collapsed appearance. No gross obstructing mass lesion is seen. No evidence of pneumoperitoneum or free intraperitoneal fluid. In comparison to a prior CT study of 03/19/2018 note is made of interval placement of a peritoneal dialysis catheter. Status post interval umbilical hernia repair. Colonic diverticulosis is seen without evidence of acute diverticulitis. There is equivocal partial visualization of the appendix which demonstrates no obvious abnormality. No indirect CT signs of acute appendicitis are seen. There is moderate diffuse left renal cortical atrophy as well as a prior study. No hydronephrosis is seen. 3 cm right renal cortical cyst. The liver, spleen, pancreas, gallbladder and adrenal glands demonstrate no discrete noncontrast pathology. There is no aortic aneurysm. No obvious lymphadenopathy is noted. Impression: Distal small bowel obstruction as noted above. Moderate diffuse left renal atrophy. Peritoneal dialysis catheter in place. Status post umbilical hernia repair. Subcutaneous soft tissues thickening is seen in the umbilical region - ? postsurgical change and/or inflammation. Correlate clinically. Nonspecific cutaneous and subcutaneous edema is seen along the right anterior pelvis - ? postsurgical change and/or cellulitis. Correlate clinically. Bibasilar discoid atelectasis, right more than left. HOSPITAL COURSE: Date of Admission:12/22/18 Date of Discharge: 12/31/18 Minutes to complete discharge: 45 Discharge Summary Reason For Visit: CHF Current Active Problems ESRD (end stage renal disease) (Acute) Hospital Course: 58 yom with PMhx of ESRD, Diastolic dysfunction, prior h/oTHC/cocaine use/ cardiomyopathy, alcohol abuse,HTN, COPD, BPH, was admitted for elective peritoneal dialysis catheter placement/Laparoscopic FAWN/Open umbilical hernia repair. Post operative course was complicated by hypoxia/respiratory distress, requiring re-intubation. He was extubated in PACU with no further concerns. His symptoms were likely multifactorial from acute on chronic diastolic heart failure exacerbation compounded by suspected underlying COPD/RAJI and poor effort. He was placed on IV lasix with improvement. He continued to be hyperkalemic, he was closed followed by renal Dr. Ventura, and had permacath placement, was started on HD till peritoneal dialysis catheter could be used. He was seen by cardiology, he had paroxysmal Atrial fibrillation post operatively but further decision on anti-coagulation was held given recent surgery and later concerns for small bowel obstruction. He further course was complicated by concerns for small bowel obstruction, he received NG tube and resolved with conservative management. He had multiple Bowel movements prior to discharge and is tolerating diet well. Outpatient HD arrangements have been made. He will be discharged on lasix and outpatient hemodialysis with eventual transition to peritoneal dialysis outpatient. He will be arranged for home oxygen and will be discharged home in stable condition. Condition: Stable - Instructions Diet, Activity, Other Instructions: Discharge Instructions: Physical activity Avoid heavy lifting (greater than 5 ibs), pushing/pulling or exercise until seen by your surgeon. You may walk unlimited amounts and climb stairs. Do not drive until you are cleared by your surgeon and you are no longer taking narcotic pain medications. Wound care Keep your dressing clean, dry and in place for the next 5 days. You may remove the outer dressing in 2-3 days, leave the steri-strips in place (Small white strips), they will come off on their own over the next few days. You have liquid glue over your smaller incisions. It may begin to flake off over the next few days, do not peel it, it will come off on its own. No showering until cleared by your surgeon. Diet You may resume your regular diet. Eat healthy, high-fiber foods to avoid constipation Pain management You may take Tylenol (Acetaminophen) for mild pain. Any pain prescription medication ordered should be taken as prescribed for moderate to severe pain. Please take as directed. If the prescribed dosage is not controlling your pain, please contact your surgeon. Do not drive, drink alcohol or operate heavy machinery while taking narcotic pain medications. Medications: You should increase your Lasix to 80mg twice daily upon discharge. Continue till further instructed by Dr. Ventura. Call the office or come to ED for any of the following: Severe pain not relieved by medication Fever of 101 or higher Excessive bleeding or drainage on dressing Inability to urinate You are arranged for outpatient Hemodialysis, starting tomorrow. Please continue as directed by Dr. Ventura Incentive spirometry 10 times every hour as able when awake. You will be discharged on home oxygen, 2-3 L with walking, activity and sleep. Your oxygen may be tapered off as your get more dialysis sessions. STRICT NO SMOKING AROUND OXYGEN FIRE HAZARD. You were also found in a new irregular heart rhythm "atrial fibrillation" and will need follow up with orthotics assistant to discuss management and eventual blood thinner. FOLLOW UP: PCP Dr. Cheek in [address] Hassan office for a follow up appointment in 1 week. Follow up with your Scallop Cutter within 1 week Advise follow up with a safety investigator for sleep study and additional testing in 1-2 weeks (information provided) Admittance Attendant Dr. Parra follow up in 1-2 weeks Referrals: Jr Cheek MD [Staff Physician] - Santos Parra MD [Staff Physician] - Shirley Ventura MD [Staff Physician] - Daniel Hassan MD [Staff Physician] - Boo Ambrocio MD, MD [Staff Physician] - Disposition: VNS/HOME HEALTH CARE - Home Medications Comprehensive Discharge Medication List: Ambulatory Orders Calcitriol [Calcitriol -] 0.25 mcg PO DAILY 03/19/18 Carvedilol [Coreg -] 25 mg PO BID 03/19/18 Simvastatin 20 mg PO HS 03/19/18 Tamsulosin HCl [Flomax] 0.4 mg PO HS 03/19/18 Amlodipine Besylate [Norvasc -] 5 mg PO DAILY #30 tablet 03/25/18 Hydralazine HCl 25 mg PO BID 10/12/18 Calcium Acetate [Phoslo -] 667 mg PO TIDCM #45 capsule 10/15/18 Ranitidine HCl [Zantac] 150 mg PO PRN 12/22/18 Furosemide [Lasix -] 80 mg PO BID #30 tablet 12/31/18 Sodium Bicarbonate - 650 mg PO TID #90 tablet 12/31/18 This patient is new to me today: No Emergency Visit: No Critical Care patient: No - Discharge Referral Referred to [facility] No
--- NOTE | 2018-12-31 11:33 | PN ---
Progress Note (short form) - Note Progress Note: s: sob improved. no chest pain, palps, dizziness, lightheadedness Current Medications Generic Name Dose Route Start Last Admin Trade Name Freq PRN Reason Stop Dose Admin Acetaminophen 650 mg 12/28/18 14:12 12/31/18 09:14 Tylenol - PO 650 mg Q4H PRN Administration MILD PAIN Amlodipine Besylate 5 mg 12/30/18 22:00 12/30/18 21:10 Norvasc - PO 5 mg HS WANDA Administration Atorvastatin Calcium 10 mg 12/28/18 22:00 12/30/18 21:10 Lipitor - PO 10 mg HS WANDA Administration Calcium Acetate 1,334 mg 12/28/18 17:30 12/31/18 09:12 Phoslo - PO Not Given TIDCM WANDA Carvedilol 25 mg 12/28/18 22:00 12/30/18 21:10 Coreg - PO 25 mg BID WANDA Administration Docusate Sodium 100 mg 12/28/18 22:00 12/31/18 09:12 Colace - PO Not Given BID WANDA Fentanyl 50 mcg 12/28/18 14:12 Sublimaze Injection - IVPUSH [id number] PRN PAIN-PACU ORDER X 4 DOSES ONLY Furosemide 80 mg 12/30/18 14:00 12/31/18 05:45 Lasix - PO 80 mg BID@0600,1400 WANDA Administration Heparin Sodium (Porcine) 5,000 unit 12/28/18 22:00 12/31/18 05:45 Heparin - SQ 5,000 unit TID WANDA Administration Magnesium Oxide 800 mg 12/30/18 12:45 12/30/18 13:58 Mag-Ox - PO 01/01/19 10:01 800 mg DAILY WANDA Administration Ondansetron HCl 4 mg 12/28/18 14:12 Zofran Injection IVPUSH Q6H PRN NAUSEA AND/OR VOMITING Ondansetron HCl 4 mg 12/28/18 14:12 Zofran Injection IVPUSH Q6H PRN NAUSEA AND/OR VOMITING Promethazine HCl 12.5 mg 12/28/18 14:12 Phenergan Injection - IVPB Q6H PRN NAUSEA-FOR RESCUE AFTER 15 MIN Ranitidine HCl 150 mg 12/28/18 14:12 Zantac - PO DAILY PRN DYSPEPSIA Sodium Chloride 2 spray 12/28/18 14:12 [place] Nasal [place] - NS Q12H PRN NASAL CONGESTION Tamsulosin HCl 0.4 mg 12/28/18 22:00 12/30/18 21:10 Flomax - PO 0.4 mg HS WANDA Administration Vital Signs Period Temp Pulse Resp BP Sys/Cannon Pulse Ox Last 24 Hr 97.7 F-100.4 F 75-88 16-20 106-129/63-85 95-98 Constitutional: Yes: No Distress, Calm Eyes: Yes: Conjunctiva Clear Neck: Yes: Supple, Trachea Midline Respiratory: Yes: Regular, CTA Bilaterally Gastrointestinal: Yes: Normal Bowel Sounds, Soft Cardiovascular: Yes: Regular Rate and Rhythm Heart Sounds: Yes: S1, S2 Extremities: No: Cold Edema: no Integumentary: No: Jaundice diaphoresis Neurological: Yes: Alert, Oriented Psychiatric: No: Agitated CBC, BMP 12/31/18 05:30 12/31/18 05:30 echo 08/2017 nl LV/RV, no significant valvular pathology echo 10/2018 nl LV/RV function, mild MR, mild TR, mild AR, mild dilation of ao root mibi 08/2017 nl EF, no ischemia EKG: sinus, nl intervals, no ischemic changes CXR: no congestion tele: NSR A/P: 58M h/o EtOH abuse, CHF, HTN, CKD, COPD here for elective hernia surgery and PD catheter placement. s/p lysis of adhesions, placement peritoneal dialysis catheter, and open repair umbilical hernia 12/22. CT 12/27 + SBO: -per hospitalist, surgery PAF: overnight 12/23 and again short paroxyms seen overnight. Nothing sustained. -In setting of recent PD catheter placement and new SBO on CT scan 12/27 -no AF presently on tele -cont beta jayro as doing -will need outpt f/u with event monitor to see if any significant afib occurring after acute issues resolved Resp distress, diastolic chf: -improved, appears euvolemic at present -lasix and dialysis per renal CKD: - s/p PD catheter HTN: - bp controlled - cont current meds: norvasc, coreg, hydralazine. BP is at goal of < 140/90 HLD: - cont statin
[2018-12-31] MEDS: CARVEDILOL 25 MG TABLET (FP) PO SCH (11:46)
[2018-12-31] MEDS: MAGNESIUM OXIDE 400 MG TABLET (FP) PO SCH (11:46)
--- NOTE | 2018-12-31 15:51 | PN ---
Progress Note (short form) - Note Progress Note: Called to change dressing. Pt planned for d/c today. Pt seen and examined around noon. Dressing removed, moderate light green drainage on 4x4's and ABD pads. Umbilical incision c/d/i, no drainage no erythema. Minimal ecchymosis. PD catheter in place. No drainage expressed from catheter site. No foul odor noted. No erythema visualized. No ttp in abdomen. New 4x4's/ABDs placed around PD catheter and umbilical incision. Pt reports large Bm last night as well as flatus. Tolerated lunch and dinner yesterday. D/w RN need for VNS for DAILY dressing changes, states it is in place. Importance of dressing changes discussed with pt who verbalized understanding. Pt should f/u with Dr Hassan next week. Above d/w attending Dr Hassan
== END 2018-12-31 13:32 | disposition home health service (06) | DRG 981 ==
LOC: JASUSAT 06:17 → JSAMEDAYSX 12:46 → J4S 15:30
PROVIDERS: ADMIT Internal Medicine; ATTEND Hospitalist
PROC: 0WQF0ZZ Repair Abdominal Wall, Open Approach (ICD-10-PCS; 2018-12-22)
PROC: 5A1935Z Respiratory Ventilation, Less than 24 Consecutive Hours (ICD-10-PCS; 2018-12-22)
PROC: 0BH17EZ Insertion of Endotracheal Airway into Trachea, Via Natural or Artificial Opening (ICD-10-PCS; 2018-12-22)
PROC: 0WHG43Z Insertion of Infusion Device into Peritoneal Cavity, Percutaneous Endoscopic Approach (ICD-10-PCS; principal; 2018-12-22 08:00)
PROC: 0DNW3ZZ Release Peritoneum, Percutaneous Approach (ICD-10-PCS; 2018-12-22 08:00)
PROC: 02H633Z Insertion of Infusion Device into Right Atrium, Percutaneous Approach (ICD-10-PCS; 2018-12-28)
PROC: B244ZZZ Ultrasonography of Right Heart (ICD-10-PCS; 2018-12-28)
PROC: 5A1D70Z Performance of Urinary Filtration, Intermittent, Less than 6 Hours Per Day (ICD-10-PCS; 2018-12-29)
PROC: 5A1D70Z Performance of Urinary Filtration, Intermittent, Less than 6 Hours Per Day (ICD-10-PCS; 2018-12-30)
DX: J95.821 Acute postprocedural respiratory failure (principal); N18.6 End stage renal disease; I50.31 Acute diastolic (congestive) heart failure; I13.2 Hypertensive heart and chronic kidney disease with heart failure and with stage 5 chronic kidney disease, or end stage renal disease; I42.8 Other cardiomyopathies; K56.7 Ileus, unspecified; K56.609 Unspecified intestinal obstruction, unspecified as to partial versus complete obstruction; K42.9 Umbilical hernia without obstruction or gangrene; F10.10 Alcohol abuse, uncomplicated; J44.9 Chronic obstructive pulmonary disease, unspecified; E87.5 Hyperkalemia; E78.5 Hyperlipidemia, unspecified; M54.5 Low back pain; F17.210 Nicotine dependence, cigarettes, uncomplicated; D63.1 Anemia in chronic kidney disease; I48.0 Paroxysmal atrial fibrillation; K66.0 Peritoneal adhesions (postprocedural) (postinfection)
CPT/HCPCS: 36415; 71045-TC-FY; 74018-TC-FY; 74019-TC-FY; 74176-TC; 76000-TC-FY; 80048; 80053; 81003; 82550; 83605; 83735; 84100; 84132; 84484; 85025; 85027; 85610; 86704; 86706; 86708; 86803; 86850; 86900; 86901; 87340; 88302-TC; 93005; 93010; 94640; 94760; 94761; 97116-GP; 97161-GP; J0131; J0885; J1644

== ENCOUNTER → 2019-02-09 | Day surgery (SDC) | payer OTHER ==
[~2019-02-09] MED LIST: HEPARIN NA (PORCINE) 5,000 UNITS/ML 1ML VIAL ONE; LIDOCAINE HCL 1%, 10 MG/ML (20ML VIAL) ONE; LIDOCAINE HCL 1%, 10 MG/ML (50 mL VIAL) IJ ONE; MIDAZOLAM HCL 2 MG/2 ML SINGLE DOSE VIAL ONE; ONDANSETRON 4 MG/2 ML VIAL IVPUSH PRN; PAPAVERINE HCL 30 MG/1 ML 10 ML VIAL NR ONE; PROPOFOL 20 ML ONE; ceFAZolin SODIUM 1 GM VIAL IVPB ONE
[2019-02-09 09:29] VITALS: BMI 29.5
--- NOTE | 2019-02-09 11:51 | HP ---
Satellite H - Chief Complaint History of Present Illness: 58 year old with ESRD on HD. Patient has a PD catheter which is not ready for use. His Permacath has had poor flow and needs replacement. History Source: Patient Limitations to Obtaining History: No Limitations - Past Medical History Allergies/Adverse Reactions: Allergies Allergy/AdvReac Type Severity Reaction Status Date / Time No Known Allergies Allergy Verified 02/09/19 09:36 Cardiovascular: Yes: CHF, HTN, Hyperlipdemia Pulmonary: Yes: COPD Gastrointestinal: Yes: Diverticulitis, Other (umbillical hernia) Renal/: Yes: Renal Failure (stage 4), BPH Musculoskeletal: Yes: Chronic low back pain - Current Medications Current Medications: Home Medications Medication Instructions Recorded Calcitriol [Calcitriol -] 0.25 mcg PO DAILY 03/19/18 Carvedilol [Coreg -] 25 mg PO BID 03/19/18 Simvastatin 20 mg PO HS 03/19/18 Tamsulosin HCl [Flomax] 0.4 mg PO HS 03/19/18 Amlodipine Besylate [Norvasc -] 5 mg PO DAILY #30 tablet 03/25/18 Hydralazine HCl 25 mg PO BID 10/12/18 Calcium Acetate [Phoslo -] 667 mg PO TIDCM #45 capsule 10/15/18 Ranitidine HCl [Zantac] 150 mg PO PRN 12/22/18 Furosemide [Lasix -] 80 mg PO BID #30 tablet 12/31/18 Sodium Bicarbonate - 650 mg PO TID #90 tablet 12/31/18 Satellite Physical Exam - Physical Examination Vital Signs: Vital Signs Period Temp Pulse Resp BP Sys/Cannon Pulse Ox Last 24 Hr 98.2 F 77 16 114/78 96 General Appearance: Alert & Oriented x3 ENT: Clear Lung: Clear to auscultation Heart: Regular rate & rhythm Abdomen: Soft, No tenderness Extremities: No edema Satellite Impression/Plan - Impression/Plan Impression: ESRD on HD Operative Procedure: Replacement Permacath. Creation AV fistula left arm Date to be Performed: 02/09/19
--- NOTE | 2019-02-09 13:47 | OP ---
Operative Note - Note: Operative Date: 02/09/19 Pre-Operative Diagnosis: ESRD on HD Operation: Replacement Permacath with venogram SVC. Creation AV fistula left brachial-basilic, 1st stage Findings: Fibrin sheath around permacath Patent basilic vein Implants: 23 cm Permacath Post-Operative Diagnosis: Same as Pre-op Surgeon: Daniel Hassan Hvac Design Mechanical Engineer: Juan Alberto Arevalo Anesthesiologist/ELECTRONIC GAME DEVELOPER: Ke Fry Anesthesia: Fractional Estimated Blood Loss (mls): 15
--- NOTE | 2019-02-09 14:03 | SURG ---
Surgery Title Department Manager Note Title Department Manager: Juan Alberto Arevalo PA-C (Suzy) Date of Service: 02/09/19 Diagnosis: ESRD ON HD Procedure: Creation AV fistula left brachial-basilic, 1st stage I was present for the entirety of the operative procedure. For further detail, please refer to operative report. Visit type - Case Type Case Type: Scheduled - Emergency Emergency Visit: No - New patient This patient is new to me today: Yes Date on this admission: 02/09/19 - Critical Care Critical Care patient: No
[2019-02-09 16:27] VITALS: BP 129/76; PULSE 77; TEMP 97.9
--- NOTE | 2019-02-11 13:14 | OP ---
DATE OF OPERATION: 02/09/2019 SURGEON: Daniel Hassan MD ENCAPSULATOR: JAMIL Kathleen PROCEDURE:1. Replacement of Permcath with venogram of the superior vena cava. 2. Creation of arteriovenous fistula, left arm brachial artery to basilic vein, 1st stage. PREOPERATIVE DIAGNOSES: Malfunctioning Permcath and renal failure. POSTOPERATIVE DIAGNOSES: Malfunctioning Permcath and renal failure. ANESTHESIA: Fractional. MATERIALS INTERN: Ke Fry, REF-GENETIC SCIENTIST OPERATIVE FINDINGS: The Permcath had a large fibrin sheath around it. A venogram of the superior vena cava was unremarkable. The left basilic vein and brachial artery were patent near the elbow. OPERATIVE PROCEDURE: Following routine patient identification intravenous sedation was established. The right neck and chest were prepped with ChloraPrep. Timeout was performed. Lidocaine 1% was infiltrated in the exit site of the Permcath and then using sharp dissection the subcutaneous cuff was freed and the catheter pulled back until the cuff was visible. A venogram was performed through the catheter using dilute contrast which did not show any evidence of a fibrin sheath within the superior vena cava. A stiff wire was passed through the catheter and the catheter was removed. A new Permcath with a 23-cm tip-to-cuff length was then passed over the wire, the tip positioned in the right atrium. The subcutaneous cuff was left in the usual place. Each lumen of the catheter was aspirated for blood and flushed with saline and heparin solution was instilled. The catheter was sutured to the skin at the exit site with 3-0 nylon. Sterile dressings were applied. Attention was then turned to the left arm which was prepped with ChloraPrep. Lidocaine 1% was infiltrated over the basilic vein which had been mapped preoperatively with duplex imaging. The vein was then exposed through a longitudinal incision. Side branches were ligated and divided. The vein was ligated distally and incised. It was distended with heparin and papaverine solution. No. 5 and No. 8 feeding tubes were passed proximally without resistance. The vein was filled with heparin and was occluded with a small bulldog clamp. The brachial artery was then exposed through the same incision. It was encircled with vessel loops and side branches were ligated and divided. The vein was then freed and brought next to the artery. The vein was spatulated. The artery was occluded with vessel loops and opened on its exposed surface with a 6-mm arteriotomy. The end of the vein was then anastomosed to the side of the artery with running suture of 6-0 Prolene. Prior to completion of the suture line the artery was allowed to backbleed and flush and the vein was flushed with heparin solution. Suture line was completed and all vessels were released. There was good flow through the anastomosis with a palpable thrill. Surgicel was applied to control bleeding from the suture line. When hemostasis was adequate the wound was closed with interrupted suture of 3-0 Vicryl and skin alla. A sterile dressing was applied and the patient was taken to the recovery room in stable condition. Camilo [id number]
--- NOTE | 2019-02-12 17:20 | PATH ---
Surgical Pathology Report Patient Name: DANIEL CHANDLER Med. Rec. #: [id number] /Age/Gender: 1960 (Age: 58) / M Account: [id number] Location: [facility] SUR[facility] Taken: 02/09/2019 Received: 02/10/2019 Reported: 02/12/2019 Physicians: Daniel Hassan M.D. Specimen(s) Received REMOVED PERMACATH Clinical History ESRD Final Diagnosis PERMACATH, REMOVAL: CATHETER (PERMACATH). MACROSCOPIC DIAGNOSIS. Electronically Signed Holly Joshi M.D. Gross Description Received fresh labeled "removed permacath," are 2 portions of a disrupted double lumen catheter measuring 13.7 and 22.3 cm in length. No soft tissue is present. No sections are submitted, gross only. DL/02/10/2019 [place]02/10/2019
== END | disposition home or self-care (01) ==
LOC: JASU-SURG 08:36
PROVIDERS: ATTEND Surgery
PROC: B518ZZZ Fluoroscopy of Superior Vena Cava (ICD-10-PCS; 2019-02-09)
PROC: 0J2SXYZ Change Other Device in Head and Neck Subcutaneous Tissue and Fascia, External Approach (ICD-10-PCS; principal; 2019-02-09 11:00)
PROC: 03180ZD Bypass Left Brachial Artery to Upper Arm Vein, Open Approach (ICD-10-PCS; 2019-02-09 11:00)
DX: T82.41XA Breakdown (mechanical) of vascular dialysis catheter, initial encounter (principal); I12.0 Hypertensive chronic kidney disease with stage 5 chronic kidney disease or end stage renal disease; N18.6 End stage renal disease; N17.9 Acute kidney failure, unspecified; Z99.2 Dependence on renal dialysis; I42.9 Cardiomyopathy, unspecified; N40.0 Benign prostatic hyperplasia without lower urinary tract symptoms; J44.9 Chronic obstructive pulmonary disease, unspecified
CPT/HCPCS: 36582; 36821; 78445; C1788; 36415; 71045-TC-FY; 76000-TC-FY; 84132; 88300-TC; 94760; J1644

== ENCOUNTER 2019-03-17 06:20 | Day surgery (SDC) | payer OTHER ==
[2019-03-15 10:27] VITALS: BMI 29.7
[2019-03-17] MEDS ORDERED: LIDOCAINE HCL 1%, 10 MG/ML (20ML VIAL) ONE ×2 (07:15→08:35)
[2019-03-17] MEDS ORDERED: HEPARIN NA (PORCINE) 5,000 UNITS/ML 1ML VIAL ONE ×2 (07:15→09:19)
[2019-03-17] MEDS ORDERED: PAPAVERINE HCL 30 MG/1 ML 10 ML VIAL NR ONE (07:26)
[2019-03-17] MEDS ORDERED: MIDAZOLAM HCL 2 MG/2 ML SINGLE DOSE VIAL ONE ×2 (07:40→08:17)
[2019-03-17] MEDS ORDERED: BUPIVACAINE HCL/PF 0.5% (5MG/ML) 10 ML VIAL ONE ×2 (07:41→08:27)
--- NOTE | 2019-03-17 07:56 | HP ---
Satellite PMH - Chief Complaint History of Present Illness: 58 year old man with ESRD who had placement of PD catheter which was not able to be used due to intraabdominal adhesions. He has left arm basilic vein fistula that needs exteriorization. History Source: Patient Limitations to Obtaining History: No Limitations - Past Medical History Allergies/Adverse Reactions: Allergies Allergy/AdvReac Type Severity Reaction Status Date / Time No Known Allergies Allergy Verified 03/17/19 06:58 Cardiovascular: Yes: CHF, HTN, Hyperlipdemia Pulmonary: Yes: COPD Gastrointestinal: Yes: Diverticulitis, Other (umbillical hernia) Renal/: Yes: Renal Failure (stage 4), BPH, Hemodialysis Musculoskeletal: Yes: Chronic low back pain - Current Medications Current Medications: Home Medications Medication Instructions Recorded Calcitriol [Calcitriol -] 0.25 mcg PO DAILY 03/19/18 Carvedilol [Coreg -] 25 mg PO BID 03/19/18 Simvastatin 20 mg PO HS 03/19/18 Tamsulosin HCl [Flomax] 0.4 mg PO HS 03/19/18 Amlodipine Besylate [Norvasc -] 5 mg PO DAILY #30 tablet 03/25/18 Hydralazine HCl 25 mg PO BID 10/12/18 Calcium Acetate [Phoslo -] 667 mg PO TIDCM #45 capsule 10/15/18 Sodium Bicarbonate - 650 mg PO TID #90 tablet 12/31/18 Acetaminophen W/ Codeine #3 1 tab PO Q6H PRN #10 tablet MDD 4 02/09/19 [Tylenol # 3 -] Acetaminophen [Tylenol -] 500 mg PO PRN 03/15/19 Furosemide [Lasix -] 40 mg PO BID 03/15/19 Satellite Physical Exam - Physical Examination Vital Signs: Vital Signs Period Temp Pulse Resp BP Sys/Cannon Pulse Ox Last 24 Hr 98.0 F-98.0 F 82-82 20-20 139-139/85-85 96 General Appearance: Obese ENT: Clear Lung: Clear to auscultation Heart: Regular rate & rhythm Abdomen: Soft, Other (PD catheter site clean and dry) Extremities: Other (Left uopper arm fistula) Neurological: Intact Satellite Impression/Plan - Impression/Plan Impression: ESRD Operative Procedure: Revision AV fistula. Removal PD catheter Date to be Performed: 03/17/19
[2019-03-17] MEDS ORDERED: PROPOFOL 20 ML ONE ×4 (08:05→09:59)
[2019-03-17] MEDS ORDERED: LIDOCAINE HCL 1%, 10 MG/ML (20ML VIAL) NR ONE ×2 (08:29)
[2019-03-17] MEDS ORDERED: BUPIVACAINE HCL/PF 0.5% (5 MG/ML) 30 ML VIAL IJ ONE (08:44)
[2019-03-17] MEDS ORDERED: PHENYLEPHRINE HCL 10 MG/1 ML SINGLE DOSE VIAL ONE (09:24)
[2019-03-17] MEDS ORDERED: POVIDONE-IODINE OINTMENT 10% - 28.4 GM TUBE ONE (09:54)
--- NOTE | 2019-03-17 10:37 | OP ---
Operative Note - Note: Operative Date: 03/17/19 Pre-Operative Diagnosis: AV fistula malfunction, peritoneal dialysis catheter malfunction Operation: Left arm AV fistula revision and peritoneal catheter removal Post-Operative Diagnosis: Same as Pre-op Surgeon: Daniel Hassan Community Relations Rep: Farrukh Rod Anesthesiologist/PHYSICIAN GENERAL INTERNAL MEDICINE: Maged Carbone Anesthesia: Local Operative Report Dictated: Yes
--- NOTE | 2019-03-17 10:39 | SURG ---
Surgery Supervisor Filling And Packing Note Supervisor Filling And Packing: Farrukh Rod PA-C Date of Service: 03/17/19 Diagnosis: AV fistula malfunction, peritoneal dialysis catheter malfunction Procedure: Left arm AV fistula revision and peritoneal catheter removal I was present for the entirety of the operative procedure. For further detail, please refer to operative report.
--- NOTE | 2019-03-17 10:40 | OP ---
Operative Note - Note: Operative Date: 03/17/19 Pre-Operative Diagnosis: ESRD Operation: Revision AV fistula left arm. Removal of PD catheter Findings: Left brachial-basilic fistula 8-10 mm PD catheter Post-Operative Diagnosis: Same as Pre-op Surgeon: Daniel Hassan Glaze Mixer: Farrukh Rod Anesthesiologist/OVEN DAUBER: Maged Carbone Anesthesia: Fractional Estimated Blood Loss (mls): 30
[2019-03-17] MEDS ORDERED: oxyCODONE HCL 5 MG TABLET PO PRN (10:46)
[2019-03-17] MEDS ORDERED: ACETAMINOPHEN 325 MG TABLET (FP) PO PRN (10:46)
[2019-03-17] MEDS ORDERED: ONDANSETRON 4 MG/2 ML VIAL IVPUSH PRN (11:27)
[2019-03-17 12:06] VITALS: TEMP 97.8
--- NOTE | 2019-03-17 14:20 | OP ---
DATE OF OPERATION: 03/17/2019 SURGEON: Daniel Hassan MD PRINTING PRESS OPERATOR APPRENTICE: JAMIL oRdriguez PROCEDURE: 1. Revision left arm arteriovenous fistula. 2. Removal of peritoneal dialysis catheter. PREOPERATIVE DIAGNOSIS: Renal failure. POSTOPERATIVE DIAGNOSIS: Renal failure. ANESTHESIA: Fractional. ANESTHESIOLOGIST: Maged Carbone, REF-DO OPERATIVE FINDINGS: The left brachiobasilic fistula was patent with a diameter between 8 and 12 mm. Peritoneal dialysis catheter had no evidence of infection. OPERATIVE PROCEDURE: Following routine patient identification and side and site verification intravenous sedation was established. The left arm was prepped with ChloraPrep. Timeout was performed. A mixture of 1% lidocaine and 0.5% Marcaine was infiltrated subcutaneously over the basilic vein which had been mapped preoperatively with duplex. Incision was made along the medial aspect of the arm over the vein and the subcutaneous tissues were divided using cautery for hemostasis. The vein was then exposed distally and then the exposure was extended proximally with care not to damage the musculocutaneous nerve which lied alongside and then over the vein. All side branches of the vein were ligated with silk ties and divided. The vein was completely mobilized from its bed. The vein was then marked on its superficial surface. A tunneler was passed over the anterior aspect of the arm between the proximal and distal ends of the incision. A bulldog clamp was placed on the distal end of the vein and the vein was then transected. It was passed through the tunneler with care not to twist. The 2 ends of the vein were then reanastomosed using a 4-suture technique using 6-0 Prolene running sutures. Prior to completion of the suture line the vein was flushed with heparin and the distal end was allowed to flush. Suture line was completed. The clamps were removed. There was good flow through the anastomosis with a good pulse in the vein. The wound was then closed with interrupted suture of 3-0 Vicryl in the subcutaneous tissues and skin alla. A sterile dressing was applied. The abdomen was then exposed and prepped with ChloraPrep. Local anesthetic was infiltrated over the site of the inner cuff and a transverse incision made. The subcutaneous tissues were divided using cautery for hemostasis. The catheter was elevated from the wound, clamped twice and transected. The intraperitoneal portion was freed down to the cuff at the level of the muscle. The catheter was then removed and the fascia approximated with suture of 2-0 Vicryl. The outer cuff was then freed from the subcutaneous tissues with sharp dissection and removed. The remainder of the catheter was removed from the skin exit site. The incision was closed with interrupted suture of 3-0 Vicryl and skin alla. Sterile dressings were applied and the patient was taken to the recovery room in stable condition. Camilo CHU/[id number]
[2019-03-17 14:42] VITALS: BP 112/56; PULSE 80
--- NOTE | 2019-03-22 17:20 | PATH ---
Surgical Pathology Report Patient Name: DANIEL CHANDLER Med. Rec. #: [id number] /Age/Gender: 1960 (Age: 58) / M Account: [id number] Location: [facility] SURG[facility] Taken: 03/17/2019 Received: 03/17/2019 Reported: 03/22/2019 Physicians: Daniel Hassan M.D. Specimen(s) Received PERITONEAL DIALYSIS CATHETER Clinical History End stage renal disease Final Diagnosis PERITONEAL DIALYSIS CATHETER, REMOVAL: CONSISTENT WITH CATHETER. MACROSCOPIC DIAGNOSIS. Electronically Signed Holly Joshi M.D. Gross Description Received fresh labeled "peritoneal dialysis catheter," are 2 clear portions of tubing measuring 5.0 and 39.0 cm in length. No soft tissue is present. No sections are submitted, gross only. 03/18/2019 [facility]03/18/2019
== END 2019-03-17 13:30 | disposition home or self-care (01) ==
LOC: JASU-SURG 06:20
PROVIDERS: ATTEND Surgery
PROC: 0WPF0YZ Removal of Other Device from Abdominal Wall, Open Approach (ICD-10-PCS; principal; 2019-03-17 08:00)
PROC: 03180ZD Bypass Left Brachial Artery to Upper Arm Vein, Open Approach (ICD-10-PCS; 2019-03-17 08:00)
DX: I12.0 Hypertensive chronic kidney disease with stage 5 chronic kidney disease or end stage renal disease (principal); N18.6 End stage renal disease; N17.9 Acute kidney failure, unspecified; Z99.2 Dependence on renal dialysis; I42.9 Cardiomyopathy, unspecified
CPT/HCPCS: 36415; 84132; 88300-TC; 94760; J1644

== ENCOUNTER 2019-07-28 20:20 | Inpatient (IN) | payer OTHER, BC ==
--- NOTE | 2019-07-28 20:34 | PDOC ---
Rapid Medical Evaluation Time Seen by Provider: 07/28/19 20:30 Medical Evaluation: Allergies Allergy/AdvReac Type Severity Reaction Status Date / Time No Known Allergies Allergy Verified 03/17/19 06:58 07/28/19 20:32 I have performed a brief in-person evaluation of this patient. The patient presents with a chief complaint of: "septic discitis vs osteomyelitis" to LS spine on MRI 07/25 (report on record here) after pt c/o severe lower back pain. Received results today from Dr Cheek while he was in dialysis per pt. States MD would like Dr Louis of ID c/s. States back pain worsening and radiates to b/l LE, no numbness/tingling/weakness, saddle anesthesia or bladder/bowel incontinence. H/o ESRD on HD (on HD //) via LUE fistula, HTN, cardiomyopathy Pertinent physical exam findings:ayaka uncomfortable, slow gait due to pain per pt , vss I have ordered the following:labs The patient will proceed to the ED for further evaluation. 07/28/19 20:40 Discharge Disposition - Diagnosis Low back pain Qualifiers: Chronicity: acute Back pain laterality: unspecified Sciatica presence: without sciatica Qualified Code(s): M54.5 - Low back pain - Referrals - Patient Instructions - Post Discharge Activity
--- NOTE | 2019-07-28 21:02 | PDOC ---
Attending Attestation - Resident Resident Name: NithyaVal - ED Attending Attestation I have performed the following: I have examined & evaluated the patient, The case was reviewed & discussed with the resident, I agree w/resident's findings & plan - HPI HPI: 07/28/19 21:02 see resident hpi - Physicial Exam PE: 07/28/19 21:02 agree with resident exam - Medical Decision Making 07/28/19 21:02 59-year-old male advised to come in due to discitis on outpatient MRI Will initiate antibiotics and admit for further management
[2019-07-28] MEDS ORDERED: VANCOMYCIN 1 GM in D5W (PRE-DOCKED) 1,000 MG/250 ML IVPB ONE (21:03)
[2019-07-28] MEDS ORDERED: PIPERACILLIN/TAZOB 2.25 GM 2.25 GM in DEXTROSE 5%-WATER - 50 ML IVPB ONE (21:03)
[2019-07-28] MEDS ORDERED: PIPERACILLIN/TAZOB 2.25 GM 2.25 GM/50 ML BAG IVPB ONE (21:35)
[2019-07-28] MEDS ORDERED: VANCOMYCIN 1 GRAM (PRE-DOCKED) 1,000 MG/250 ML BAG IVPB ONE (21:36)
--- NOTE | 2019-07-28 21:39 | PDOC ---
History of Present Illness - General Chief Complaint: Back Pain Stated Complaint: SENT BY PCP/SPINAL PAIN Time Seen by Provider: 07/28/19 20:30 History Source: Patient Exam Limitations: No Limitations - History of Present Illness Initial Comments: 07/28/19 21:39 59y M with PMH of ESRD (HD MWF), CHF, COPD, HTN, Hyperlipdemia, BPH, Gastric Ulcer sent to ED by PMD for osteomyelitis/discitis found on MRI done 3d ago. Patient states he was having back pain for the past 2 weeks. He denies trauma, fevers, chills, sob, urinary symptoms, abdominal pain, n/v/d, weakness, numbness /tingling. MRI showed discitis/osteomyelitis in L5,S1. PMD: Adia Cards: Miranda PMH: see hpi PSH: hernia repair, Allergies: nkda Social: denies Meds: see med rec Past History - Past Medical History Allergies/Adverse Reactions: Allergies Allergy/AdvReac Type Severity Reaction Status Date / Time No Known Allergies Allergy Verified 07/28/19 20:38 Home Medications: Ambulatory Orders Calcitriol [Calcitriol -] 0.25 mcg PO DAILY 03/19/18 Carvedilol [Coreg -] 25 mg PO BID 03/19/18 Simvastatin 20 mg PO HS 03/19/18 Tamsulosin HCl [Flomax] 0.4 mg PO HS 03/19/18 Hydralazine HCl 10 mg PO BID 10/12/18 Calcium Acetate [Phoslo -] 667 mg PO TIDCM #45 capsule 10/15/18 Sodium Bicarbonate - 650 mg PO TID #90 tablet 12/31/18 Acetaminophen [Tylenol .Extra-Strength -] 500 mg PO PRN 03/15/19 Furosemide [Lasix -] 40 mg PO BID 03/15/19 Acetaminophen W/ Codeine #3 [Tylenol # 3 -] 1 tab PO Q6H PRN #10 tablet MDD 4 Amlodipine Besylate [Norvasc -] 10 mg PO DAILY 07/29/19 Diltiazem HCl [Diltiazem ER] 120 mg PO DAILY 07/29/19 Omeprazole 40 mg PO 07/29/19 Anemia: No Asthma: No Cancer: No Cardiac Disorders: Yes (cardiomyopathy) CVA: No COPD: Yes (uses O2 prn @home) CHF: Yes Dementia: No Diabetes: No Dialysis: Yes (M,W,F) GI Disorders: Yes (PUD, diverticulitis) HTN: Yes Hypercholesterolemia: Yes Liver Disease: Yes Seizures: No Thyroid Disease: No - Surgical History Abdominal Surgery: Yes (HERNIA SX- UMBILICAL) Appendectomy: No Cardiac Surgery: No Cholecystectomy: No Lung Surgery: No Neurologic Surgery: No Orthopedic Surgery: No - Immunization History Immunization Up to Date: Yes - Psycho Social/Smoking Cessation Hx Smoking History: Current every day smoker Have you smoked in the past 12 months: Yes Number of Cigarettes Smoked Daily: 4 If you are a former smoker, when did you quit?: 2019 Information on smoking cessation initiated: Yes 'Breaking Loose' booklet given: 12/22/18 Hx Alcohol Use: Yes (SOCIAL) Drug/Substance Use Hx: No Substance Use Type: Alcohol Hx Substance Use Treatment: No Review of Systems - Review of Systems Constitutional: No: Chills, Fever, Weakness HEENTM: No: Symptoms Reported Respiratory: No: Symptoms reported Cardiac (ROS): No: Symptoms Reported ABD/GI: No: Symptoms Reported : No: Symptoms Reported Musculoskeletal: Yes: See HPI Integumentary: No: Symptoms Reported Neurological: No: Symptoms reported *Physical Exam - Vital Signs Last Vital Signs Temp Pulse Resp BP Pulse Ox 98.2 F 98 H 20 123/72 98 07/28/19 20:30 07/28/19 20:30 07/28/19 20:30 07/28/19 20:30 07/28/19 20:30 - Physical Exam General Appearance: Yes: Nourished, Appropriately Dressed. No: Apparent Distress HEENT: positive: EOMI, ASHLEY Neck: positive: Trachea midline, Supple Respiratory/Chest: positive: Lungs Clear, Normal Breath Sounds. negative: Crackles, Rales, Rhonchi, Stridor, Wheezing Cardiovascular: positive: Regular Rhythm, Regular Rate, S1, S2. negative: Edema , JVD, Murmur Vascular Pulses: Dorsalis-Pedis (R): 2+, Doralis-Pedis (L): 2+ Gastrointestinal/Abdominal: positive: Normal Bowel Sounds, Soft. negative: Tender Musculoskeletal: positive: Vertebral Tenderness (lumbar/sacral). negative: CVA Tenderness Extremity: positive: Normal Capillary Refill. negative: Swelling, Calf Tenderness, Erythema Integumentary: positive: Normal Color, Dry, Warm Neurologic: positive: tank house operator II-XII NML intact, Fully Oriented, Alert, Normal Mood/ Affect, Normal Response, Motor Strength 12/13 ED Treatment Course - LABORATORY CBC & Chemistry Diagram: 07/28/19 21:50 07/28/19 21:50 Medical Decision Making - Medical Decision Making 07/28/19 22:48 59y M presenting with MRI results showing discitis/osteomyelitis. got phone call to admit patient, will order labs and start patient on vanc and renally dosed zosyn. will admit ekg: a flutter with variable av block. no a flutter on previous ekgs. labs show elevated crp otherwise no white count. other labs at baseline. will give morphine for pain. will admit patient to tele. Discharge - Discharge Information Problems reviewed: Yes Clinical Impression/Diagnosis: Low back pain Qualifiers: Chronicity: acute Back pain laterality: unspecified Sciatica presence: without sciatica Qualified Code(s): M54.5 - Low back pain Atrial flutter Qualifiers: Atrial flutter type: unspecified Qualified Code(s): I48.92 - Unspecified atrial flutter Condition: Good - Admission Yes - Follow up/Referral - Patient Discharge Instructions - Post Discharge Activity
[2019-07-28] MEDS ORDERED: morphine CARPU-JECT 4 MG/1 ML DISP.SYRIN IVPUSH ONE (21:45)
[2019-07-28 22:03] LABS: BASO % 0.5 % (0-2.0); EOS % 1.6 % (0-4.5); HEMATOCRIT 31.4 % (35.4-49); HEMOGLOBIN 10.4 GM/dL (11.7-16.9); LYMPH % 19.4 % (8-40); MCH 31.1 pg (25.7-33.7); MEAN CELL VOLUME 94.1 fl (80-96); MEAN PLT VOLUME 8.5 fl (7.5-11.1); MONO % 4.7 % (3.8-10.2); NEUT % 73.8 % (42.8-82.8); PLATELET COUNT 265 K/MM3 (134-434); RBC 3.34 M/mm3 (4.00-5.60); RDW 17.6 % (11.9-15.9); WHITE BLOOD COUNT 6.7 K/mm3 (4.0-10.0)
[2019-07-28] MEDS ORDERED: morphine SULFATE 4 MG/ML VIAL ONE (22:09)
[2019-07-28 22:16] LABS: INR 1.32 (0.83-1.09); PROTHROMBIN TIME (PATIENT) 15.6 SEC (9.7-13.0)
[2019-07-28 22:38] LABS: ALBUMIN 3.2 g/dl (3.4-5.0); BILIRUBIN,TOTAL 0.6 mg/dL (0.2-1); BLOOD UREA NITROGEN 18.4 mg/dL (7-18); CREATININE 5.6 mg/dL (0.55-1.3); POTASSIUM 3.5 mmol/L (3.5-5.1)
[2019-07-28 22:53] LABS: ERYTHROCYTE SEDIMENTATION RATE 80 mm/hr (0-20)
--- NOTE | 2019-07-28 23:52 | PN ---
Teaching Attending Note Name of Resident: Deloris Elkins ATTENDING PHYSICIAN STATEMENT I saw and evaluated the patient. I reviewed the resident's note and discussed the case with the resident. I agree with the resident's findings and plan as documented. SUBJECTIVE: Patient is a 59 year old man with a PMH of ESRD (HD MWF), Atrial fibrillation, CHF, COPD, HTN, Tobacco use, Hyperlipdemia, BPH and Gastric Ulcer sent to Er by PMD for osteomyelitis/diskitis found on MRI done 3 days ago. Patient states he was having severe back pain for the past 2 weeks. He denies trauma, fevers, chills, SOB, urinary symptoms, abdominal pain, nausea, vomiting and diarrhea. MRI showed discitis/osteomyelitis in L5,S1. States back pain worsening and radiates to bilateral LE. He denies numbness, tingling, weakness, saddle anesthesia, bladder or bowel incontinence. Denies alcohol or illicit drug use. No recent travel or sick contacts. OBJECTIVE: Alert Vital Signs Period Temp Pulse Resp BP Sys/Cannon Pulse Ox Last 24 Hr 98.2 F 98 20 123/72 98 HEENT: No Jaundice, eye redness or discharge, PERRLA, EOMI. Normocephalic, atraumatic. External ears are normal and hearing is grossly intact. No nasal discharge. Neck: Supple, nontender. No palpable adenopathy or thyromegaly. No JVD Chest: Good effort. Clear to auscultation and percussion. Heart: Regular. No S3, rub or murmur Abdomen: Not distended, soft, nontender and no HSM. No rebound or guarding. Normal bowel sounds. Ext: Peripheral pulses intact. No leg edema. Point tenderness in lumbosacral area. LUE AV fistula. Skin: Warm and dry. No petechiae, rash or ecchymosis. Neuro: Alert. Oriented x3. CN 2-12 grossly intact. Sensation grossly intact in all four extremities and DTR are symmetric. Psych: Appropriate mood and affect. Good insight. Home Medications Medication Instructions Recorded Calcitriol [Calcitriol -] 0.25 mcg PO DAILY 03/19/18 Carvedilol [Coreg -] 25 mg PO BID 03/19/18 Simvastatin 20 mg PO HS 03/19/18 Tamsulosin HCl [Flomax] 0.4 mg PO HS 03/19/18 Amlodipine Besylate [Norvasc -] 5 mg PO DAILY #30 tablet 03/25/18 Hydralazine HCl 25 mg PO BID 10/12/18 Calcium Acetate [Phoslo -] 667 mg PO TIDCM #45 capsule 10/15/18 Sodium Bicarbonate - 650 mg PO TID #90 tablet 12/31/18 Acetaminophen [Tylenol 500 mg PO PRN 03/15/19 .Extra-Strength -] Furosemide [Lasix -] 40 mg PO BID 03/15/19 Acetaminophen W/ Codeine #3 1 tab PO Q6H PRN #10 tablet MDD 4 03/17/19 [Tylenol # 3 -] Abnormal Lab Results 07/28/19 07/28/19 07/28/19 21:50 21:50 21:50 RBC 3.34 L Hgb 10.4 L Hct 31.4 L D RDW 17.6 H ESR 80 H PT with INR 15.60 H INR 1.32 H Anion Gap 7 L BUN 18.4 H Creatinine 5.6 H AST 7 L C-Reactive Protein 7.3 H Albumin 3.2 L ASSESSMENT AND PLAN: 1. L5/S1 Osteomyelitis/Diskitis - Confirmed by MRI. Unclear where the infection originated and seeded the vertebrae. CXR shows cardiomegaly, pulmonary vascular congestion and hilar prominence. ID consulted and being treated with IV Vancomycin and Zosyn - adjusted for GFR. EKG shows new Aflutter with variable AV block; prolonged QTc, and inferolateral ST-T wave changes. Recently found to have Afib but was not started on anticoagulation. [id number] score is 2. Will consult cardiology to advise on anticoagulation. Urinalysis pending. Will continue comprehensive care for all of patients comorbid conditions. 2. Hypoalbuminemia - Possibly due to combined effects of malnutrition and inflammation associated with comorbid chronic conditions. Will ensure adequate dietary protein intake and also consult electrician technician. 3. Tobacco Use Counseled on risks associated with tobacco use. We will provide patient all the necessary assistance to facilitate smoking cessation and prescribe Nicotine patch. 4. ESRD - Will consult nephrology to arrange for thrice weekly hemodialysis. Continue to avoid nephrotoxic agents such as NSAIDS, aminoglycosides, contrast dyes and certain Alternative medicine products. 5. Anemia - Likely chiefly due to ESRD. Will do basic anemia work up including serial stool guaiacs, reticulocyte count and iron studies. Rule out factors that may limit response to ADRI. 6. Hypertension - Restart suitable outpatient antihypertensive drugs when clinically appropriate. Revise regimen to ensure [id number] excellent BP control and college admissions counselor patient on the injurious effects of uncontrolled hypertension. Nonpharmacologic measures to control hypertension like weight loss , salt restriction and exercise discussed. Importance of adherence to treatment regimen and attainment of normotension emphasized. 7. DVT prophylaxis - Heparin 5000u sq tid. 8. Advance directives - Full code
--- NOTE | 2019-07-29 01:35 | HP ---
CHIEF COMPLAINT: Back pain PCP: Dr. Cheek Flow Manager: Dr. Jean HISTORY OF PRESENT ILLNESS: Patient is a 59 year old male with PMH of ESRD (HD M/W/), CHF, COPD (on 3L O2 during dialysis), HTN, BPH, gastric ulcer who presents with lower back pain. Pt has been experiencing severe 10/10 lower back pain for 5-6 weeks. Pain is sharp , positional (leaning forward) and exacerbated with ambulation. He endorses intermittent radiation to the R and down his thigh, intermittent numbness in his R buttocks. Symptoms do not radiate down his legs, denies BL LE numbness or tingling. Denies any urinary or bowel incontinence, no genitourinary numbness or tingling. He denies any trauma precipitating these symptoms. Pt saw his PCP, Dr. Cheek for his symptoms and was started on tramadol and methocarbamol w/o relief. Last week at f/u appt, pt received a lumbar MRI. He was called with results of MRI suggesting discitis/osteomyelitis in L5 and S1 and told to come to ED to receive IV abx and see Dr. Louis. Per ED, Dr. Louis called about pt and told to start on vanc/zosyn. Of note, pt states that Dr. Cheek did not mention any need for surgery at this time, but recommended he get an appointment with a spinal specialist for further evaluation. Pt has an appt schedule with Dr. Llamas on Aug 26. Pt denies any fevers, chills, chest pain, SOB, abd pain, nausea, vomiting. He reports an episode of palpitations while at dialysis last week and that "his heart was racing in the 130s". He was evaluated by his concession supervisor (unsure whom , but someone at Dr. Jean's office) and was started on diltiazem Recent Travel: denies PAST MEDICAL HISTORY: As per HPI PAST SURGICAL HISTORY: Umbilical hernia repair Social History: Smoking: ~3 cig/day Alcohol: heavy alcohol use in past; now ~2 drinks/week Drugs: denies Allergies No Known Allergies Allergy (Verified 07/28/19 20:38) HOME MEDICATIONS: Home Medications Medication Instructions Recorded Calcitriol [Calcitriol -] 0.25 mcg PO DAILY 03/19/18 Carvedilol [Coreg -] 25 mg PO BID 03/19/18 Simvastatin 20 mg PO HS 03/19/18 Tamsulosin HCl [Flomax] 0.4 mg PO HS 03/19/18 Amlodipine Besylate [Norvasc -] 5 mg PO DAILY #30 tablet 03/25/18 Hydralazine HCl 25 mg PO BID 10/12/18 Calcium Acetate [Phoslo -] 667 mg PO TIDCM #45 capsule 10/15/18 Sodium Bicarbonate - 650 mg PO TID #90 tablet 12/31/18 Acetaminophen [Tylenol 500 mg PO PRN 03/15/19 .Extra-Strength -] Furosemide [Lasix -] 40 mg PO BID 03/15/19 Acetaminophen W/ Codeine #3 1 tab PO Q6H PRN #10 tablet MDD 4 03/17/19 [Tylenol # 3 -] REVIEW OF SYSTEMS CONSTITUTIONAL: Absent: fever, chills, diaphoresis, generalized weakness, malaise, loss of appetite, weight change HEENT: Absent: rhinorrhea, nasal congestion, throat pain, throat swelling, difficulty swallowing, mouth swelling, ear pain, eye pain, visual changes CARDIOVASCULAR: Absent: chest pain, syncope, palpitations, irregular heart rate, lightheadedness , peripheral edema RESPIRATORY: Absent: cough, shortness of breath, dyspnea with exertion, orthopnea, wheezing, stridor, hemoptysis GASTROINTESTINAL: Absent: abdominal pain, abdominal distension, nausea, vomiting, diarrhea, constipation, melena, hematochezia GENITOURINARY: Absent: dysuria, frequency, urgency, hesitancy, hematuria, flank pain, genital pain MUSCULOSKELETAL: back pain Absent: myalgia, arthralgia, joint swelling, neck pain SKIN: Absent: rash, itching, pallor HEMATOLOGIC/IMMUNOLOGIC: Absent: easy bleeding, easy bruising, lymphadenopathy, frequent infections ENDOCRINE: Absent: unexplained weight gain, unexplained weight loss, heat intolerance, cold intolerance NEUROLOGIC: unsteady gait Absent: headache, focal weakness or paresthesias, dizziness, seizure, mental status changes, bladder or bowel incontinence PSYCHIATRIC: Absent: anxiety, depression, suicidal or homicidal ideation, hallucinations. PHYSICAL EXAMINATION Vital Signs - 24 hr 07/28/19 20:30 Temperature 98.2 F Pulse Rate 98 H Respiratory 20 Rate Blood Pressure 123/72 O2 Sat by Pulse 98 Oximetry (%) GENERAL: Awake, alert, and fully oriented, in no acute distress. HEAD: Normal with no signs of trauma. EYES: Pupils equal, round and reactive to light, extraocular movements intact, sclera anicteric, conjunctiva clear. No lid lag. EARS, NOSE, THROAT: Ears normal, nares patent, oropharynx clear without exudates. Moist mucous membranes. NECK: Normal range of motion, supple without lymphadenopathy, JVD, or masses. LUNGS: Breath sounds equal, clear to auscultation bilaterally. No wheezes, and no crackles. No accessory muscle use. HEART: Irregular rate and rhythm, normal S1 and S2 without murmur, rub or gallop. ABDOMEN: Soft, nontender, distended (at baseline), normoactive bowel sounds, no guarding, no rebound, no masses. No hepatomegaly or splenomegaly. MUSCULOSKELETAL: Normal range of motion at all joints. Point tenderness at L4- S1. BL flank tenderness UPPER EXTREMITIES: 2+ pulses, warm, well-perfused. No cyanosis. No clubbing. No peripheral edema. L AV fistula patent on auscultation, palpable thrill LOWER EXTREMITIES: 2+ pulses, warm, well-perfused. No calf tenderness. No peripheral edema. NEUROLOGICAL: Cranial nerves II-XII intact. Normal speech. Gait not observed PSYCHIATRIC: Cooperative. Good eye contact. Appropriate mood and affect. SKIN: Warm, dry, normal turgor, no rashes or lesions noted, normal capillary refill. Laboratory Results - last 24 hr CBC, BMP 07/28/19 21:50 07/28/19 21:50 ASSESSMENT/PLAN: Patient is a 59 year old male with PMH of ESRD (HD M/W/F), CHF, COPD (on 3L O2 during dialysis), HTN, BPH, gastric ulcer who presents with osteomyelitis/ discitis. #Lumbar osteomyelitis/discitis L5-S1 MRI: edema in BM of L5/S1 with bony erosions, compatible with septic discitis /osteomyelitis. No evidence of decompression, herniation, severe stenosis ESR: 80, CRP: 7.3, further suggesting evidence of osteo 1gm vancomycin given in ED. Due to ESRF, will f/u random vanc in am and adjust dosing as needed. Cont 2.25gm zosyn Q8H ID consultation placed (Dr. Louis) to follow Unknown source of infection. Pt denies IVDU, no hx of spinal surgery, degenerative spinal disease, DM, HIV, TB, corticosteroid therapy. Consider TARIK to r/o IE F/u blood cx Morphine for pain control Pt will need PICC line eventually #Atrial fibrillation/flutter EKG: atrial flutter with variable AV block Evidence of Afib at pt's last admission in December 2018. Pt was not started on AC due to recent surgery Pt recently evaluated by cardio one week ago and started on diltiazem but no AC CHADS-VASC score: 2 (2.2% stroke risk per year). Will defer starting AC until cardio eval in am Cardiology consultation placed (Dr. Jean) Cont home meds: diltiazem 24hr ER 120mg daily #ESRD (HD M/W/F) Cont HD while admitted Nephrology consultation placed (Dr. Lance) #HTN Cont home meds: amlodipine 10mg daily, carvedilol 25mg BID #CHF Cont home meds: lasix 40mg BID #COPD Pt states he is placed on O2 3L during his dialysis M, W, F Hold NC O2 for now, goal O2 sat between 88-92 #BPH Cont home meds: tamsulosin 0m4 mg HS #FEN No standing fluids given CHF, ESRD Replete lytes prn Renal diet #DVT ppx Heparin sq #Dispo Monitor on tele Visit type - Emergency Visit Emergency Visit: Yes ED Registration Date: 07/28/19 Care time: The patient presented to the Emergency Department on the above date and was hospitalized for further evaluation of their emergent condition. - New Patient This patient is new to me today: Yes Date on this admission: 07/29/19 - Critical Care Critical Care patient: No ATTENDING PHYSICIAN STATEMENT I saw and evaluated the patient. I reviewed the resident's note and discussed the case with the resident. I agree with the resident's findings and plan as documented. SUBJECTIVE: OBJECTIVE: ASSESSMENT AND PLAN:
[2019-07-29] MEDS ORDERED: HEPARIN NA (PORCINE) 5,000 UNITS/ML 1ML VIAL SQ SCH (06:00)
[2019-07-29] MEDS ORDERED: FUROSEMIDE 40 MG TABLET (FP) ONE (06:10)
[2019-07-29] MEDS ORDERED: HEPARIN NA (PORCINE) 5,000 UNITS/ML 1ML VIAL ONE (06:10)
[2019-07-29] MEDS: FUROSEMIDE 40 MG TABLET (FP) PO SCH ×2 (06:23→13:15)
[2019-07-29 07:00] LABS: BASO % 0.7 % (0-2.0); EOS % 2.8 % (0-4.5); HEMATOCRIT 30.4 % (35.4-49); HEMOGLOBIN 10.4 GM/dL (11.7-16.9); LYMPH % 19.6 % (8-40); MCH 31.7 pg (25.7-33.7); MCHC 34.1 g/dl (32.0-35.9); MEAN PLT VOLUME 7.7 fl (7.5-11.1); MONO % 6.7 % (3.8-10.2); NEUT % 70.2 % (42.8-82.8); PLATELET COUNT 257 K/MM3 (134-434); RBC 3.28 M/mm3 (4.00-5.60); RDW 17.8 % (11.9-15.9); WHITE BLOOD COUNT 6.6 K/mm3 (4.0-10.0)
[2019-07-29 07:27] LABS: BILIRUBIN,TOTAL 0.6 mg/dL (0.2-1); BLOOD UREA NITROGEN 20.5 mg/dL (7-18); CALCIUM 9.4 mg/dL (8.5-10.1); CREATININE 6.8 mg/dL (0.55-1.3); POTASSIUM 3.6 mmol/L (3.5-5.1); TOT PROT 7.9 g/dl (6.4-8.2)
[2019-07-29] MEDS ORDERED: TAMSULOSIN HCL 0.4 MG CAP ONE (08:39)
[2019-07-29] MEDS: TAMSULOSIN HCL 0.4 MG CAP PO SCH (08:46)
--- NOTE | 2019-07-29 09:19 | HOSP ---
Subjective - Review of Symptoms Subjective: Patient is a 59 year old male with PMH of ESRD (HD M/W/F), CHF, COPD (on 3L O2 during dialysis), HTN, BPH, gastric ulcer who presents with osteomyelitis/ discitis. Musculoskeletal: Yes: Back Pain Physical Examination Vital Signs: Vital Signs Temperature 98.1 F 07/29/19 07:22 Pulse Rate 78 07/29/19 07:22 Respiratory Rate 17 07/29/19 07:22 Blood Pressure 128/81 07/29/19 07:22 O2 Sat by Pulse Oximetry (%) 98 07/29/19 07:22 Constitutional: Yes: Well Nourished, No Distress, Calm Eyes: Yes: WNL, Conjunctiva Clear, EOM Intact HENT: Yes: WNL, Atraumatic, Normocephalic Neck: Yes: WNL, Supple, Trachea Midline Cardiovascular: Yes: WNL, Regular Rate and Rhythm Respiratory: Yes: WNL, Regular, CTA Bilaterally Gastrointestinal: Yes: WNL, Normal Bowel Sounds ...Rectal Exam: Yes: Deferred Renal/: Yes: Other (makes some urine) Breast(s): Yes: WNL Musculoskeletal: Yes: Back Pain Extremities: Yes: WNL Edema: No Peripheral Pulses WNL: Yes Peripheral Pulses: Left Radial: 2+, Right Radial: 2+, Left Doralis Pedis: 2+, Right Dorsalis Pedis: 2+, Left Femoral: 2+, Right Femoral: 2+ Integumentary: Yes: WNL Neurological: Yes: WNL, Alert, Oriented ...Motor Strength: WNL Psychiatric: Yes: WNL, Alert, Oriented Labs: CBC, BMP 07/29/19 06:30 07/29/19 06:30 Hospitalist Encounter Assessment: Being treated for septic diskitic. on abx. HD planned for tomorrow. Continue home medications. Rate controlled now with diltiazem. Apprecaite cardiology/ID/ renal consultation Critical Care Total Critical Care Time (in minutes): 30 Critical Care Statement: The care of this patient involved high complexity decision making to prevent further life threatening deterioration of the patient 's condition and/or to evaluate & treat vital organ system(s) failure or risk of failure.
[2019-07-29] MEDS: amLODIPine BESYLATE 10 MG TABLET (FP) PO SCH (09:20)
[2019-07-29] MEDS: CALCITRIOL 0.25 MCG CAPSULE (FP) PO SCH (09:20)
[2019-07-29] MEDS: hydrALAZINE HCL 10 MG TABLET PO SCH ×2 (09:20→21:38)
[2019-07-29] MEDS: CALCIUM ACETATE 667 MG CAPSULE (FP) PO SCH ×3 (09:20→17:27)
[2019-07-29] MEDS: CARVEDILOL 25 MG TABLET (FP) PO SCH ×2 (09:20→21:39)
[2019-07-29] MEDS ORDERED: PIPERACILLIN/TAZOB 2.25 GM 2.25 GM in DEXTROSE 5%-WATER - 50 ML IVPB SCH (10:00)
[2019-07-29] MEDS ORDERED: PATIENT'S OWN MEDICATION (NON-FORMULARY) (Diltiazem Hcl [Diltiazem 24hr Er] 120 MG) PO SCH (10:00)
[2019-07-29] MEDS ORDERED: PIPERACILLIN/TAZOB 2.25 GM 2.25 GM/50 ML BAG IVPB ONE ×2 (10:24→17:28)
--- NOTE | 2019-07-29 11:26 | CON.CARD ---
Cardiology Consult (text) - Consultation Consultation Note: Chief Complaint: back pain History of Present Illness: 59M h/o EtOH abuse, CHF, HTN, CKD, COPD, aflutter, esrd on hd here with back pain. Has been having low back pain. Had mri as outpt and showed possible disc/ spine infection so sent to ER. No cp sob palps dizzy loc pnd orthopnea le edema. Sees me for cardio. - Past Medical History Cardio/Vascular: Yes: CHF, HTN, Hyperlipdemia Pulmonary: Yes: COPD Gastrointestinal: Yes: Diverticulitis, Other (umbillical hernia) Renal/: Yes: Renal Failure (stage 4), BPH Psych: Yes: Addictions Musculoskeletal: Yes: Chronic low back pain - Past Surgical History Past Surgical History: Yes: None - Alcohol/Substance Use Hx Alcohol Use: No History of Substance Use: reports: None - Smoking History Smoking history: Current some day smoker Have you smoked in the past 12 months: Yes - Social History History of Recent Travel: No Home Medications - Allergies Allergies/Adverse Reactions: Allergies Allergy/AdvReac Type Severity Reaction Status Date / Time No Known Allergies Allergy Verified 07/28/19 20:38 Active Medications Generic Name Dose Route Start Last Admin Trade Name Freq PRN Reason Stop Dose Admin Amlodipine Besylate 10 mg 07/29/19 10:00 07/29/19 09:20 Norvasc - PO 10 mg DAILY WANDA Administration Atorvastatin Calcium 10 mg 07/29/19 22:00 Lipitor - PO HS WANDA Calcitriol 0.25 mcg 07/29/19 10:00 07/29/19 09:20 Rocaltrol - PO 0.25 mcg DAILY WANDA Administration Calcium Acetate 667 mg 07/29/19 08:00 07/29/19 09:20 Phoslo - PO 667 mg TIDCM WANDA Administration Carvedilol 25 mg 07/29/19 10:00 07/29/19 09:20 Coreg - PO 25 mg BID WANDA Administration Diltiazem HCl 120 mg 07/29/19 10:00 07/29/19 10:00 Cardizem Cd - PO 120 mg DAILY WANDA Administration Furosemide 40 mg 07/29/19 06:00 07/29/19 06:23 Lasix - PO 40 mg BIDLASIX WANDA Administration Heparin Sodium (Porcine) 5,000 unit 07/29/19 06:00 07/29/19 06:23 Heparin - SQ 5,000 unit TID WANDA Administration Hydralazine HCl 10 mg 07/29/19 10:00 07/29/19 09:20 Apresoline - PO 10 mg BID WANDA Administration Piperacillin Sod/Tazobactam 50 mls @ 100 mls/hr 07/29/19 10:00 Sod 2.25 gm/ Dextrose IVPB Q8H-IV WANDA Protocol Piperacillin Sod/Tazobactam 50 mls @ 100 mls/hr 07/29/19 10:00 07/29/19 10:32 Sod 2.25 gm/ Dextrose IVPB 07/30/19 09:59 100 mls/hr Q8H-IV WANDA Administration Tamsulosin HCl 0.4 mg 07/29/19 08:30 07/29/19 08:46 Flomax - PO 0.4 mg DAILY@0830 WANDA Administration Home Medications Medication Instructions Recorded Calcitriol [Calcitriol -] 0.25 mcg PO DAILY 03/19/18 Carvedilol [Coreg -] 25 mg PO BID 03/19/18 Simvastatin 20 mg PO HS 03/19/18 Tamsulosin HCl [Flomax] 0.4 mg PO HS 03/19/18 Hydralazine HCl 10 mg PO BID 10/12/18 Calcium Acetate [Phoslo -] 667 mg PO TIDCM #45 capsule 10/15/18 Sodium Bicarbonate - 650 mg PO TID #90 tablet 12/31/18 Furosemide [Lasix -] 40 mg PO BID 03/15/19 Amlodipine Besylate [Norvasc -] 10 mg PO DAILY 07/29/19 Diltiazem HCl [Diltiazem ER] 120 mg PO DAILY 07/29/19 Omeprazole 40 mg PO DAILY 07/29/19 Tramadol HCl 50 mg PO PRN PRN 07/29/19 Family Disease History - Family Disease History Family Disease History: Diabetes: Mother, Sister (ckd), Heart Disease: Mother, Sister Review of Systems - Review of Systems Constitutional: reports: No Symptoms Eyes: reports: No Symptoms HENT: reports: No Symptoms Neck: reports: No Symptoms Cardiovascular: reports: No Symptoms Respiratory: reports: No Symptoms Gastrointestinal: reports: No Symptoms Genitourinary: reports: No Symptoms Integumentary: reports: No Symptoms Neurological: reports: No Symptoms Endocrine: reports: No Symptoms Hematology/Lymphatic: reports: No Symptoms Psychiatric: reports: No Symptoms Vital Signs: Vital Signs Period Temp Pulse Resp BP Sys/Cannon Pulse Ox Last 24 Hr 98.1 F-98.3 F 75-132 17-20 122-148/72-90 94-98 Constitutional: Yes: No Distress, Calm Eyes: Yes: Conjunctiva Clear HENT: Yes: Atraumatic, Normocephalic Neck: Yes: Supple, Trachea Midline Respiratory: Yes: Regular, CTA Bilaterally Gastrointestinal: Yes: Normal Bowel Sounds, Soft Cardiovascular: irreg Heart Sounds: Yes: S1, S2 Extremities: No: Cold Edema: no Peripheral Pulses: 2+ Left Doralis Pedis, 2+ Right Dorsalis Pedis Integumentary: No: Jaundice diaphoresis Neurological: Yes: Alert, Oriented Psychiatric: No: Agitated - Other Data Laboratory Last Values WBC 6.6 K/mm3 (4.0-10.0) 07/29/19 06:30 RBC 3.28 M/mm3 (4.00-5.60) L 07/29/19 06:30 Hgb 10.4 GM/dL (11.7-16.9) L 07/29/19 06:30 Hct 30.4 % (35.4-49) L 07/29/19 06:30 MCV 93.0 fl (80-96) 07/29/19 06:30 MCH 31.7 pg (25.7-33.7) 07/29/19 06:30 MCHC 34.1 g/dl (32.0-35.9) 07/29/19 06:30 RDW 17.8 % (11.9-15.9) H 07/29/19 06:30 Plt Count 257 K/MM3 (134-434) 07/29/19 06:30 MPV 7.7 fl (7.5-11.1) 07/29/19 06:30 Absolute Neuts (auto) 4.6 K/mm3 (1.5-8.0) 07/29/19 06:30 Neutrophils % 70.2 % (42.8-82.8) 07/29/19 06:30 Lymphocytes % 19.6 % (8-40) 07/29/19 06:30 Monocytes % 6.7 % (3.8-10.2) 07/29/19 06:30 Eosinophils % 2.8 % (0-4.5) 07/29/19 06:30 Basophils % 0.7 % (0-2.0) 07/29/19 06:30 Nucleated RBC % 0 % (0-0) 07/29/19 06:30 ESR 80 mm/hr (0-20) H 07/28/19 21:50 PT with INR 15.60 SEC (9.7-13.0) H 07/28/19 21:50 INR 1.32 (0.83-1.09) H 07/28/19 21:50 Sodium 140 mmol/L (136-145) 07/29/19 06:30 Potassium 3.6 mmol/L (3.5-5.1) 07/29/19 06:30 Chloride 101 mmol/L (98-107) 07/29/19 06:30 Carbon Dioxide 30 mmol/L (21-32) 07/29/19 06:30 Anion Gap 9 MMOL/L (8-16) 07/29/19 06:30 BUN 20.5 mg/dL (7-18) H 07/29/19 06:30 Creatinine 6.8 mg/dL (0.55-1.3) H 07/29/19 06:30 Est GFR (CKD-EPI)AfAm 9.30 07/29/19 06:30 Est GFR (CKD-EPI)NonAf 8.02 07/29/19 06:30 Random Glucose 86 mg/dL (74-106) 07/29/19 06:30 Calcium 9.4 mg/dL (8.5-10.1) 07/29/19 06:30 Iron 46 ug/dL (50-175) L 07/29/19 06:30 TIBC 251 ug/dL (250-450) 07/29/19 06:30 Iron Saturation 18 % (17.5-39) 07/29/19 06:30 Unsaturated IBC 205 ug/dL (200-275) 07/29/19 06:30 Total Bilirubin 0.6 mg/dL (0.2-1) 07/29/19 06:30 AST 6 U/L (15-37) L 07/29/19 06:30 ALT 14 U/L (13-61) 07/29/19 06:30 Alkaline Phosphatase 102 U/L (45-117) 07/29/19 06:30 Troponin I < 0.02 ng/ml (0.00-0.05) 07/28/19 23:21 C-Reactive Protein 7.3 MG/DL (0.00-0.3) H 07/28/19 21:50 Total Protein 7.9 g/dl (6.4-8.2) 07/29/19 06:30 Albumin 3.0 g/dl (3.4-5.0) L 07/29/19 06:30 Random Vancomycin 16.9 ug/ml (18-26) L 07/29/19 06:30 Blood Type O POSITIVE 07/28/19 21:50 Antibody Screen Negative 07/28/19 21:50 echo 08/2017 nl LV/RV, no significant valvular pathology echo 10/2018 nl LV/RV function, mild MR, mild TR, mild AR, mild dilation of ao root mibi 08/2017 nl EF, no ischemia EKG: aflutter, rate controlled, no ischemic changes CXR: no congestion tele: aflutter, rate controlled A/P: 59M h/o EtOH abuse, CHF, HTN, CKD, COPD, aflutter, esrd on hd here with back pain. aflutter: -rate improved now, cont coreg. cont tele. -chadsvasc warrants ac. would start eliquis 5 bid but given possible septic discitis/spine osteo he may need procedure so would start hep gtt for now. chronic diastolic chf: -appears euvolemic at present -lasix and dialysis per renal esrd: -hd per renal HTN: - cont current meds HLD: - cont statin
--- NOTE | 2019-07-29 11:34 | EKG ---
Test Reason : Blood Pressure : / mmHG Vent. Rate : 085 BPM Atrial Rate : 255 BPM P-R Int : 000 ms QRS Dur : 108 ms QT Int : 406 ms P-R-T Axes : 260 064 026 degrees QTc Int : 483 ms ATRIAL FLUTTER WITH VARIABLE A-V BLOCK INCOMPLETE LEFT BUNDLE BRANCH BLOCK NONSPECIFIC ST AND T WAVE ABNORMALITY PROLONGED QT ABNORMAL ECG WHEN COMPARED WITH ECG OF 28-JUL-2019 22:33, NONSPECIFIC T WAVE ABNORMALITY HAS REPLACED INVERTED T WAVES IN INFERIOR LEADS T WAVE INVERSION LESS EVIDENT IN LATERAL LEADS Confirmed by FARHAN TOLENTINO MD ([id number]) on 07/29/2019 11:34:13 AM Referred By: Confirmed By:FARHAN TOLENTINO MD
--- NOTE | 2019-07-29 11:34 | EKG ---
Test Reason : Blood Pressure : / mmHG Vent. Rate : 095 BPM Atrial Rate : 256 BPM P-R Int : 000 ms QRS Dur : 110 ms QT Int : 374 ms P-R-T Axes : 076 068 235 degrees QTc Int : 469 ms ATRIAL FLUTTER WITH VARIABLE A-V BLOCK PROLONGED QT ABNORMAL ECG WHEN COMPARED WITH ECG OF 22-DEC-2018 12:11, ATRIAL FLUTTER HAS REPLACED SINUS RHYTHM T WAVE INVERSION NOW EVIDENT IN INFERIOR LEADS INVERTED T WAVES HAVE REPLACED NONSPECIFIC T WAVE ABNORMALITY IN LATERAL LEADS Confirmed by FARHAN TOLENTINO MD ([id number]) on 07/29/2019 11:34:24 AM Referred By: Confirmed By:FARHAN TOLENTINO MD
[2019-07-29] MEDS ORDERED: HEPARIN INFUSION - 25,000 UNITS/500 ML INFUS.BAG IVPB ONE (11:58)
[2019-07-29] MEDS: HEPARIN - 25,000 UNIT in SODIUM CHLORIDE 495 ML IV SCH (12:14)
--- NOTE | 2019-07-29 16:36 | CONSULT ---
Consult Consult Specialty:: Nephrology Reason for Consultation:: ESRD - History of Present Illness Chief Complaint: sent in for back pain History of Present Illness: Pt is a 59 year old male with pmhx of esrd, chf, copd, htn, and boph who presents with lower back pain. I was called to evaluate him as he is on HD. He follows with Dr Ventura. I called and discussed the case with her and she asked me to see the pt. He denies shortness of breath. He denies fevers or chills. he says that he is compliant with HD. He is michela MWF schedule. He was found to have possible diskitis/osteomyelitis of l5/s1. - History Source History Provided By: Patient - Past Medical History Cardio/Vascular: Yes: CHF, HTN, Hyperlipdemia Pulmonary: Yes: COPD Gastrointestinal: Yes: Diverticulitis, Other (umbillical hernia) Renal/: Yes: Renal Failure (stage 4), BPH, Hemodialysis Psych: Yes: Addictions Musculoskeletal: Yes: Chronic low back pain - Past Surgical History Past Surgical History: Yes: None - Alcohol/Substance Use Hx Alcohol Use: Yes (SOCIAL) Number of Drinks Daily: 4 (last drink 03/17) History of Substance Use: reports: None - Smoking History Smoking history: Current every day smoker Have you smoked in the past 12 months: Yes Aproximately how many cigarettes per day: 4 If you are a former smoker, when did you quit?: 2019 - Social History Usual Living Arrangement: Other (No kids poor support system) History of Recent Travel: No Home Medications - Allergies Allergies/Adverse Reactions: Allergies Allergy/AdvReac Type Severity Reaction Status Date / Time No Known Allergies Allergy Verified 07/28/19 20:38 - Home Medications Home Medications: Ambulatory Orders Calcitriol [Calcitriol -] 0.25 mcg PO DAILY 03/19/18 Carvedilol [Coreg -] 25 mg PO BID 03/19/18 Simvastatin 20 mg PO HS 03/19/18 Tamsulosin HCl [Flomax] 0.4 mg PO HS 03/19/18 Hydralazine HCl 10 mg PO BID 10/12/18 Calcium Acetate [Phoslo -] 667 mg PO TIDCM #45 capsule 10/15/18 Sodium Bicarbonate - 650 mg PO TID #90 tablet 12/31/18 Furosemide [Lasix -] 40 mg PO BID 03/15/19 Amlodipine Besylate [Norvasc -] 10 mg PO DAILY 07/29/19 Diltiazem HCl [Diltiazem ER] 120 mg PO DAILY 07/29/19 Omeprazole 40 mg PO DAILY 07/29/19 Tramadol HCl 50 mg PO PRN PRN 07/29/19 Family Medical History Family History: Denies Review of Systems - Review of Systems Constitutional: reports: Malaise Eyes: reports: No Symptoms HENT: reports: No Symptoms Neck: reports: No Symptoms Cardiovascular: reports: No Symptoms Respiratory: reports: No Symptoms Gastrointestinal: reports: No Symptoms Genitourinary: reports: No Symptoms Musculoskeletal: reports: Back Pain Integumentary: reports: No Symptoms Neurological: reports: No Symptoms Endocrine: reports: No Symptoms Hematology/Lymphatic: reports: No Symptoms Physical Exam Vital Signs: Vital Signs Temperature 98.7 F 07/29/19 12:19 Pulse Rate 91 H 07/29/19 12:19 Respiratory Rate 18 07/29/19 12:19 Blood Pressure 119/62 07/29/19 12:19 O2 Sat by Pulse Oximetry (%) 94 L 07/29/19 12:19 Constitutional: Yes: Calm Eyes: Yes: Conjunctiva Clear HENT: Yes: Atraumatic Neck: Yes: Supple Cardiovascular: Yes: S1, S2 Respiratory: Yes: CTA Bilaterally Gastrointestinal: Yes: Soft Renal/: Yes: WNL Musculoskeletal: Yes: Back Pain Edema: No Neurological: Yes: Oriented Psychiatric: Yes: Oriented Labs: CBC, BMP 07/29/19 06:30 07/29/19 06:30 Imaging - Results Chest X-ray: Report Reviewed Problem List - Problems (1) Low back pain Code(s): M54.5 - LOW BACK PAIN Qualifiers: Chronicity: acute Back pain laterality: unspecified Sciatica presence: without sciatica Qualified Code(s): M54.5 - Low back pain (2) Anemia Code(s): D64.9 - ANEMIA, UNSPECIFIED Qualifiers: Anemia type: due to chronic kidney disease Chronic kidney disease stage: stage 4 (severe) Qualified Code(s): N18.4 - Chronic kidney disease, stage 4 ( severe); D63.1 - Anemia in chronic kidney disease (3) ESRD (end stage renal disease) Code(s): N18.6 - END STAGE RENAL DISEASE Assessment/Plan Current Medications Generic Name Dose Route Start Last Admin Trade Name Freq PRN Reason Stop Dose Admin Amlodipine Besylate 10 mg 07/29/19 10:00 07/29/19 09:20 Norvasc - PO 10 mg DAILY WANDA Administration Atorvastatin Calcium 10 mg 07/29/19 22:00 Lipitor - PO HS WANDA Calcitriol 0.25 mcg 07/29/19 10:00 07/29/19 09:20 Rocaltrol - PO 0.25 mcg DAILY WANDA Administration Calcium Acetate 667 mg 07/29/19 08:00 07/29/19 13:15 Phoslo - PO 667 mg TIDCM WANDA Administration Carvedilol 25 mg 07/29/19 10:00 07/29/19 09:20 Coreg - PO 25 mg BID WANDA Administration Diltiazem HCl 120 mg 07/29/19 10:00 07/29/19 10:00 Cardizem Cd - PO 120 mg DAILY WANDA Administration Furosemide 40 mg 07/29/19 06:00 07/29/19 13:15 Lasix - PO 40 mg BIDLASIX WANDA Administration Heparin Sodium (Porcine) 1,000 unit 07/29/19 11:40 Heparin - IVPUSH PRN PRN Heparin Heparin Sodium (Porcine) 5,000 unit 07/29/19 11:40 Heparin - IVPUSH PRN PRN Heparin Hydralazine HCl 10 mg 07/29/19 10:00 07/29/19 09:20 Apresoline - PO 10 mg BID WANDA Administration Piperacillin Sod/Tazobactam 50 mls @ 100 mls/hr 07/29/19 10:00 Sod 2.25 gm/ Dextrose IVPB Q8H-IV WANDA Protocol Piperacillin Sod/Tazobactam 50 mls @ 100 mls/hr 07/29/19 10:00 07/29/19 10:32 Sod 2.25 gm/ Dextrose IVPB 07/30/19 09:59 100 mls/hr Q8H-IV WANDA Administration Heparin Sodium (Porcine) 25, 500 mls @ 16 mls/hr 07/29/19 11:45 07/29/19 12: 14 000 unit/ Sodium Chloride IV 800 unit/hr TITR WANDA 16 mls/hr Administration Protocol 800 UNIT/HR Tamsulosin HCl 0.4 mg 07/29/19 08:30 07/29/19 08:46 Flomax - PO 0.4 mg DAILY@0830 WANDA Administration Impression 1. ESRD 2. a-flutter 3. diskitis/osteomyelitis L5/S1 4. htn 5. hld Plan - will arrange for HD tomorrow - called HD unit for prescription - renal diet - rx 3 1/ abf 450 2 k bath heparin 3500 loading, 98.5 dw, epogen 6000 units, hectorol 2.5 mcg
--- NOTE | 2019-07-29 17:13 | CON.ID ---
Consult Consult Specialty:: infectious diseases Referred by:: Reason for Consultation:: diskitis/osteo lower spine - History of Present Illness Chief Complaint: back pain and inability to walk properly History of Present Illness: 59 year old male with PMH of ESRD (HD M/W/), CHF, COPD (on 3L O2 during dialysis), HTN, BPH, gastric ulcer who presents with lower back pain. Pt has been experiencing severe 10/10 lower back pain for 5-6 weeks. Pain is sharp, positional (leaning forward) and exacerbated with ambulation. He endorses intermittent radiation to the R and down his thigh, intermittent numbness in his R buttocks. Symptoms do not radiate down his legs, denies BL LE numbness or tingling. Denies any urinary or bowel incontinence, no genitourinary numbness or tingling. He denies any trauma precipitating these symptoms. Pt saw his PCP, Dr. Cheek for his symptoms and was started on tramadol and methocarbamol w/o relief. Last week at f/u appt, pt received a lumbar MRI. He was called with results of MRI suggesting discitis/osteomyelitis in L5 and S1 and told to come to ED to receive IV abx patient mentions that he has had this back pain for a long time but the pain he is having now is new and it is very painful and causing him not to walk properly and radiating to the legs - History Source History Provided By: Patient Limitations to Obtaining History: No Limitations - Past Medical History Cardio/Vascular: Yes: CHF, HTN, Hyperlipdemia Pulmonary: Yes: COPD Gastrointestinal: Yes: Diverticulitis, Other (umbillical hernia) Renal/: Yes: Renal Failure (stage 4), BPH, Hemodialysis Psych: Yes: Addictions Musculoskeletal: Yes: Chronic low back pain - Past Surgical History Past Surgical History: Yes: None - Alcohol/Substance Use Hx Alcohol Use: Yes (SOCIAL) Number of Drinks Daily: 4 (last drink 03/17) History of Substance Use: reports: None - Smoking History Smoking history: Current every day smoker Have you smoked in the past 12 months: Yes Aproximately how many cigarettes per day: 4 If you are a former smoker, when did you quit?: 2019 - Social History Usual Living Arrangement: Other (No kids poor support system) History of Recent Travel: No Home Medications - Allergies Allergies/Adverse Reactions: Allergies Allergy/AdvReac Type Severity Reaction Status Date / Time No Known Allergies Allergy Verified 07/28/19 20:38 - Home Medications Home Medications: Ambulatory Orders RX: Calcitriol [Calcitriol -] 0.25 mcg PO DAILY 03/19/18 RX: Carvedilol [Coreg -] 25 mg PO BID 03/19/18 RX: Simvastatin 20 mg PO HS 03/19/18 RX: Tamsulosin HCl [Flomax] 0.4 mg PO HS 03/19/18 RX: Hydralazine HCl 10 mg PO BID 10/12/18 RX: Calcium Acetate [Phoslo -] 667 mg PO TIDCM #45 capsule 10/15/18 RX: Sodium Bicarbonate - 650 mg PO TID #90 tablet 12/31/18 RX: Furosemide [Lasix -] 40 mg PO BID 03/15/19 Diltiazem HCl [Diltiazem ER] 120 mg PO DAILY 07/29/19 RX: Amlodipine Besylate [Norvasc -] 10 mg PO DAILY 07/29/19 RX: Omeprazole 40 mg PO DAILY 07/29/19 RX: Tramadol HCl 50 mg PO PRN PRN 07/29/19 Review of Systems - Review of Systems Constitutional: reports: No Symptoms Eyes: reports: No Symptoms HENT: reports: No Symptoms Neck: reports: No Symptoms Cardiovascular: reports: No Symptoms Respiratory: reports: No Symptoms Gastrointestinal: reports: No Symptoms Genitourinary: reports: No Symptoms Musculoskeletal: reports: Back Pain Integumentary: reports: No Symptoms Neurological: reports: Numbness Endocrine: reports: No Symptoms Hematology/Lymphatic: reports: No Symptoms Psychiatric: reports: No Symptoms Physical Exam Vital Signs: Vital Signs Temperature 98.4 F 07/29/19 17:03 Pulse Rate 99 H 07/29/19 17:03 Respiratory Rate 18 07/29/19 12:19 Blood Pressure 134/74 07/29/19 17:03 O2 Sat by Pulse Oximetry (%) 94 L 07/29/19 17:03 Constitutional: Yes: Well Nourished, Calm, Mild Distress Eyes: Yes: Conjunctiva Clear HENT: Yes: Atraumatic, Normocephalic Neck: Yes: Supple, Trachea Midline Cardiovascular: Yes: Regular Rate and Rhythm Respiratory: Yes: Regular, CTA Bilaterally Gastrointestinal: Yes: Normal Bowel Sounds, Soft Musculoskeletal: Yes: Back Pain, Other Neurological: Yes: Alert, Oriented, Other Psychiatric: Yes: Alert, Oriented Labs: CBC, BMP 07/29/19 06:30 07/29/19 06:30 Imaging - Results Chest X-ray: Report Reviewed, Image Reviewed MRI: Report Reviewed, Image Reviewed Assessment/Plan Problem List - Problems (1) Discitis of lumbar region Code(s): M46.46 - DISCITIS, UNSPECIFIED, LUMBAR REGION (2) ESRD on hemodialysis Code(s): N18.6 - END STAGE RENAL DISEASE; Z99.2 - DEPENDENCE ON RENAL DIALYSIS (3) BPH (benign prostatic hyperplasia) Code(s): N40.0 - BENIGN PROSTATIC HYPERPLASIA WITHOUT LOWER URINRY TRACT SYMP (4) Gastric ulcer Code(s): K25.9 - GASTRIC ULCER, UNSP ACUTE OR CHRONIC, W/O HEMOR OR PERF (5) Prophylactic measure Code(s): Z29.9 - ENCOUNTER FOR PROPHYLACTIC MEASURES, UNSPECIFIED (6) CHF (congestive heart failure) Code(s): I50.9 - HEART FAILURE, UNSPECIFIED Qualifiers: Heart failure chronicity: chronic (7) COPD (chronic obstructive pulmonary disease) Code(s): J44.9 - CHRONIC OBSTRUCTIVE PULMONARY DISEASE, UNSPECIFIED (8) ESRD (end stage renal disease) Code(s): N18.6 - END STAGE RENAL DISEASE (9) HTN (hypertension) Code(s): I10 - ESSENTIAL (PRIMARY) HYPERTENSION (10) Hyperlipidemia Code(s): E78.5 - HYPERLIPIDEMIA, UNSPECIFIED Qualifiers: Hyperlipidemia type: pure hypercholesterolemia Qualified Code(s): E78.00 - Pure hypercholesterolemia, unspecified; E78.0 - Pure hypercholesterolemia (11) Low back pain Code(s): M54.5 - LOW BACK PAIN Qualifiers: Chronicity: acute Back pain laterality: unspecified Sciatica presence: without sciatica Qualified Code(s): M54.5 - Low back pain (12) Atrial flutter Code(s): I48.92 - UNSPECIFIED ATRIAL FLUTTER Qualifiers: Atrial flutter type: unspecified Qualified Code(s): I48.92 - plan await for cx reports will start patient on broad spectrum abx neurosurgery consult physio might need biopsy will see what neurosurgery has to say rest as per the team
[2019-07-29] MEDS: PIPERACILLIN/TAZOB 2.25 GM 2.25 GM in DEXTROSE 5%-WATER - 50 ML IVPB SCH (17:36)
[2019-07-29] MEDS: HEPARIN NA (PORCINE) 5,000 UNITS/ML 1ML VIAL IVPUSH PRN (21:40)
[2019-07-29] MEDS ORDERED: ATORVASTATIN CA 10 MG TABLET (FP) PO SCH (22:00)
[2019-07-29] MEDS ORDERED: PATIENT'S OWN MEDICATION (NON-FORMULARY) (Simvastatin [Simvastatin] 20 MG) PO SCH (22:00)
[2019-07-29] MEDS ORDERED: MELATONIN 5 MG TABLETS PO ONE (22:49)
[2019-07-30] MEDS ORDERED: PIPERACILLIN/TAZOBACTAM 2.25 GM VIAL IVPB ONE ×2 (00:41→09:05)
[2019-07-30] MEDS ORDERED: DEXTROSE 5%-WATER - 50 ML IVPB ONE ×2 (00:41→09:05)
[2019-07-30] MEDS: PIPERACILLIN/TAZOB 2.25 GM 2.25 GM in DEXTROSE 5%-WATER - 50 ML IVPB SCH ×3 (01:06→17:30)
[2019-07-30] MEDS: HEPARIN NA (PORCINE) 5,000 UNITS/ML 1ML VIAL IVPUSH PRN ×2 (06:18→16:50)
[2019-07-30] MEDS: FUROSEMIDE 40 MG TABLET (FP) PO SCH ×2 (06:18→16:48)
--- NOTE | 2019-07-30 08:11 | PN ---
Progress Note, Physician Chief Complaint: Being treated for discitis. Moderate lower lumbar pain. History of Present Illness: Patient is a 59 year old male with PMH of ESRD (HD M/W/F), CHF, COPD (on 3L O2 during dialysis), HTN, BPH, gastric ulcer who presents with osteomyelitis/ discitis. - Current Medication List Current Medications: Active Medications Amlodipine Besylate (Norvasc -) 10 mg PO DAILY [facility] Last Admin: 07/29/19 09:20 Dose: 10 mg Atorvastatin Calcium (Lipitor -) 10 mg PO HS [facility] Last Admin: 07/29/19 21:38 Dose: 10 mg Calcitriol (Rocaltrol -) 0.25 mcg PO DAILY [facility] Last Admin: 07/29/19 09:20 Dose: 0.25 mcg Calcium Acetate (Phoslo -) 667 mg PO TIDCM [facility] Last Admin: 07/29/19 17:27 Dose: 667 mg Carvedilol (Coreg -) 25 mg PO BID [facility] Last Admin: 07/29/19 21:39 Dose: 25 mg Diltiazem HCl (Cardizem Cd -) 120 mg PO DAILY [facility] Last Admin: 07/29/19 10:00 Dose: 120 mg Epoetin Gabo (Epogen -) 6,000 unit IVPUSH ONCE ONE Stop: 07/30/19 16:38 Furosemide (Lasix -) 40 mg PO BIDLASIX [facility] Last Admin: 07/30/19 06:18 Dose: 40 mg Heparin Sodium (Porcine) (Heparin -) 1,000 unit IVPUSH PRN PRN PRN Reason: Heparin Heparin Sodium (Porcine) (Heparin -) 5,000 unit IVPUSH PRN PRN PRN Reason: Heparin Last Admin: 07/30/19 06:18 Dose: 5,000 unit Hydralazine HCl (Apresoline -) 10 mg PO BID [facility] Last Admin: 07/29/19 21:38 Dose: 10 mg Heparin Sodium (Porcine) 25, (000 unit/ Sodium Chloride) 500 mls @ 16 mls/hr IV TITR WANDA; Protocol Last Titration: 07/30/19 06:18 Dose: 1,100 unit/hr, 22 mls/hr Sodium Chloride (Normal Saline -) 250 mls @ 3,000 mls/hr IV PRN PRN PRN Reason: Hypotension during Dialysis Stop: 07/30/19 16:37 Piperacillin Sod/Tazobactam (Sod 2.25 gm/ Dextrose) 50 mls @ 100 mls/hr IVPB Q8H-IV WANDA; Protocol Last Admin: 07/30/19 01:06 Dose: 100 mls/hr Tamsulosin HCl (Flomax -) 0.4 mg PO DAILY@0830 WANDA Last Admin: 07/29/19 08:46 Dose: 0.4 mg - Objective Vital Signs: Vital Signs Temperature 97.8 F 07/30/19 05:00 Pulse Rate 87 07/30/19 05:00 Respiratory Rate 18 07/30/19 05:00 Blood Pressure 124/74 07/30/19 05:00 O2 Sat by Pulse Oximetry (%) 94 L 07/29/19 21:00 Constitutional: Yes: Well Nourished, No Distress, Calm Eyes: Yes: WNL, Conjunctiva Clear HENT: Yes: WNL, Atraumatic, Normocephalic Neck: Yes: WNL, Supple, Trachea Midline Cardiovascular: Yes: WNL, Regular Rate and Rhythm Respiratory: Yes: WNL, Regular, CTA Bilaterally Gastrointestinal: Yes: WNL, Normal Bowel Sounds Additional Findings/Remarks: Constitutional: Yes: Well Nourished, No Distress, Calm Eyes: Yes: WNL, Conjunctiva Clear, EOM Intact HENT: Yes: WNL, Atraumatic, Normocephalic Neck: Yes: WNL, Supple, Trachea Midline Cardiovascular: Yes: WNL, Regular Rate and Rhythm Respiratory: Yes: WNL, Regular, CTA Bilaterally Gastrointestinal: Yes: WNL, Normal Bowel Sounds ...Rectal Exam: Yes: Deferred Renal/: Yes: Other (makes some urine) Breast(s): Yes: WNL Musculoskeletal: Yes: Back Pain Extremities: Yes: WNL Edema: No Peripheral Pulses WNL: Yes Peripheral Pulses: Left Radial: 2+, Right Radial: 2+, Left Doralis Pedis: 2+, Right Dorsalis Pedis: 2+, Left Femoral: 2+, Right Femoral: 2+ Integumentary: Yes: WNL Neurological: Yes: WNL, Alert, Oriented ...Motor Strength: WNL Psychiatric: Yes: WNL, Alert, Oriented Labs: CBC, BMP 07/29/19 06:30 07/29/19 06:30 INR, PTT INR 1.32 (0.83-1.09) H 07/28/19 21:50 Problem List - Problems (1) Discitis of lumbar region Assessment/Plan: L12 and L5S1 discitis and instability on MRI disc degeneration changes as well as Modic changes and loss of disc height at these levels with facet hypertrophy no paraspinal collection or clear evidence of osteomyelitis ID following c/w zachn Dr Ruiz to see pt lumbar CT without contrast ordered Code(s): M46.46 - DISCITIS, UNSPECIFIED, LUMBAR REGION (2) ESRD on hemodialysis Assessment/Plan: ESRD on HD renal following HD as per schedule Code(s): N18.6 - END STAGE RENAL DISEASE; Z99.2 - DEPENDENCE ON RENAL DIALYSIS (3) BPH (benign prostatic hyperplasia) Assessment/Plan: c/w home flomax Code(s): N40.0 - BENIGN PROSTATIC HYPERPLASIA WITHOUT LOWER URINRY TRACT SYMP (4) Gastric ulcer Assessment/Plan: c/w home pantoprozole Code(s): K25.9 - GASTRIC ULCER, UNSP ACUTE OR CHRONIC, W/O HEMOR OR PERF (5) Prophylactic measure Assessment/Plan: FEN renal diet monitor electrolytes HD as per renal DVT on heparin gtt Dispo mainatin as in patient full code discharge planning Code(s): Z29.9 - ENCOUNTER FOR PROPHYLACTIC MEASURES, UNSPECIFIED (6) CHF (congestive heart failure) Assessment/Plan: chronic diastolic CKF appears euvolemic c/w lasix c/w HD Code(s): I50.9 - HEART FAILURE, UNSPECIFIED Qualifiers: Heart failure chronicity: chronic (7) COPD (chronic obstructive pulmonary disease) Code(s): J44.9 - CHRONIC OBSTRUCTIVE PULMONARY DISEASE, UNSPECIFIED (8) ESRD (end stage renal disease) Assessment/Plan: HD as per renal Code(s): N18.6 - END STAGE RENAL DISEASE (9) HTN (hypertension) Assessment/Plan: normotensive c/w hydralazine, norvasc Code(s): I10 - ESSENTIAL (PRIMARY) HYPERTENSION (10) Hyperlipidemia Assessment/Plan: diet controlled Code(s): E78.5 - HYPERLIPIDEMIA, UNSPECIFIED Qualifiers: Hyperlipidemia type: pure hypercholesterolemia Qualified Code(s): E78.00 - Pure hypercholesterolemia, unspecified; E78.0 - Pure hypercholesterolemia (11) Low back pain Assessment/Plan: tramadol/roxicodone for pain lidoderm patch Code(s): M54.5 - LOW BACK PAIN Qualifiers: Chronicity: acute Back pain laterality: unspecified Sciatica presence: without sciatica Qualified Code(s): M54.5 - Low back pain (12) Atrial flutter Assessment/Plan: rate improved now c/w coreg c/w tele can up-titrate Cardizem for improved rate control chadsvasc warrants AC but given possible septic discitis/spine osteo he may need procedure so would continue hep gtt for now can start eliquis 5 bid if no surgical intervention planned Code(s): I48.92 - UNSPECIFIED ATRIAL FLUTTER Qualifiers: Atrial flutter type: unspecified Qualified Code(s): I48.92 - Unspecified atrial flutter Visit type - Emergency Visit Emergency Visit: Yes ED Registration Date: 07/28/19 Care time: The patient presented to the Emergency Department on the above date and was hospitalized for further evaluation of their emergent condition. - New Patient This patient is new to me today: No - Critical Care Critical Care patient: No - Discharge Referral Referred to [facility] Med P.C.: No
--- NOTE | 2019-07-30 09:10 | PN ---
Progress Note, Physician Chief Complaint: No CP or SOB TELE: AF 110-115 History of Present Illness: Back pain, AF, ESRD - Current Medication List Current Medications: Active Medications Amlodipine Besylate (Norvasc -) 10 mg PO DAILY [facility] Last Admin: 07/29/19 09:20 Dose: 10 mg Atorvastatin Calcium (Lipitor -) 10 mg PO HS [facility] Last Admin: 07/29/19 21:38 Dose: 10 mg Calcitriol (Rocaltrol -) 0.25 mcg PO DAILY [facility] Last Admin: 07/29/19 09:20 Dose: 0.25 mcg Calcium Acetate (Phoslo -) 667 mg PO TIDCM [facility] Last Admin: 07/29/19 17:27 Dose: 667 mg Carvedilol (Coreg -) 25 mg PO BID [facility] Last Admin: 07/29/19 21:39 Dose: 25 mg Diltiazem HCl (Cardizem Cd -) 120 mg PO DAILY [facility] Last Admin: 07/29/19 10:00 Dose: 120 mg Epoetin Gabo (Epogen -) 6,000 unit IVPUSH ONCE ONE Stop: 07/30/19 16:38 Furosemide (Lasix -) 40 mg PO BIDLASIX [facility] Last Admin: 07/30/19 06:18 Dose: 40 mg Heparin Sodium (Porcine) (Heparin -) 1,000 unit IVPUSH PRN PRN PRN Reason: Heparin Heparin Sodium (Porcine) (Heparin -) 5,000 unit IVPUSH PRN PRN PRN Reason: Heparin Last Admin: 07/30/19 06:18 Dose: 5,000 unit Hydralazine HCl (Apresoline -) 10 mg PO BID [facility] Last Admin: 07/29/19 21:38 Dose: 10 mg Heparin Sodium (Porcine) 25, (000 unit/ Sodium Chloride) 500 mls @ 16 mls/hr IV TITR WANDA; Protocol Last Titration: 07/30/19 06:18 Dose: 1,100 unit/hr, 22 mls/hr Sodium Chloride (Normal Saline -) 250 mls @ 3,000 mls/hr IV PRN PRN PRN Reason: Hypotension during Dialysis Stop: 07/30/19 16:37 Piperacillin Sod/Tazobactam (Sod 2.25 gm/ Dextrose) 50 mls @ 100 mls/hr IVPB Q8H-IV WANDA; Protocol Last Admin: 07/30/19 01:06 Dose: 100 mls/hr Tamsulosin HCl (Flomax -) 0.4 mg PO DAILY@0830 [facility]AN[facility] Last Admin: 07/29/19 08:46 Dose: 0.4 mg - Objective Vital Signs: Vital Signs Temperature 97.8 F 07/30/19 05:00 Pulse Rate 87 07/30/19 05:00 Respiratory Rate 18 07/30/19 05:00 Blood Pressure 124/74 07/30/19 05:00 O2 Sat by Pulse Oximetry (%) 94 L 07/29/19 21:00 Constitutional: Yes: No Distress Cardiovascular: Yes: Pulse Irregular Respiratory: Yes: CTA Bilaterally Gastrointestinal: Yes: Soft (nt) Edema: No Neurological: Yes: Alert, Oriented Labs: CBC, BMP 07/29/19 06:30 07/29/19 06:30 INR, PTT INR 1.32 (0.83-1.09) H 07/28/19 21:50 Microbiology 07/28/19 21:50 Blood - Peripheral Venous Blood Culture - Preliminary NO GROWTH OBTAINED AFTER 24 HOURS, INCUBATION TO CONTINUE FOR 4 DAYS. 07/28/19 21:50 Blood - Peripheral Venous Blood Culture - Preliminary NO GROWTH OBTAINED AFTER 24 HOURS, INCUBATION TO CONTINUE FOR 4 DAYS. Laboratory Tests 12/27/18 12/27/18 07/28/19 06:00 06:00 23:21 WBC 6.4 Hgb 9.4 L Plt Count 243 PTT (Actin FS) Sodium 130 L Potassium 5.1 BUN 97 H Creatinine 17.4 H* Calcium 8.5 Phosphorus 8.9 H Magnesium 2.0 Troponin I < 0.02 07/29/19 07/29/19 07/30/19 06:30 06:30 03:30 WBC 6.6 Hgb 10.4 L Plt Count 257 PTT (Actin FS) 32.7 Sodium 140 Potassium 3.6 BUN Creatinine 6.8 H Calcium Phosphorus Magnesium Troponin I - ....Imaging EKG: Image Reviewed Assessment/Plan echo 10/2018 nl LV/RV function, mild MR, mild TR, mild AR, mild dilation of ao root mibi 08/2017 nl EF, no ischemia EKG: aflutter, rate controlled, no ischemic changes CXR: no congestion tele: aflutter, rate controlled A/P: 59M h/o EtOH abuse, CHF, HTN, CKD, COPD, aflutter, esrd on hd here with back pain. aflutter: -rate improved now, cont coreg. cont tele. Titrate Cardizem for improved rate control -chadsvasc warrants ac. would start eliquis 5 bid but given possible septic discitis/spine osteo he may need procedure so would continue hep gtt for now. chronic diastolic chf: -appears euvolemic at present -lasix and dialysis per renal esrd: -hd per renal HTN: - cont current meds HLD: - cont statin
[2019-07-30] MEDS: hydrALAZINE HCL 10 MG TABLET PO SCH ×2 (09:15→23:02)
[2019-07-30] MEDS: CALCITRIOL 0.25 MCG CAPSULE (FP) PO SCH (09:15)
[2019-07-30] MEDS: amLODIPine BESYLATE 10 MG TABLET (FP) PO SCH (09:15)
[2019-07-30] MEDS: TAMSULOSIN HCL 0.4 MG CAP PO SCH (09:15)
[2019-07-30] MEDS: CALCIUM ACETATE 667 MG CAPSULE (FP) PO SCH ×3 (09:15→16:49)
[2019-07-30] MEDS: CARVEDILOL 25 MG TABLET (FP) PO SCH ×2 (09:15→23:02)
[2019-07-30] MEDS ORDERED: traMADol HCL 50 MG TABLET PO PRN (09:20)
[2019-07-30 11:29] LABS: BLOOD UREA NITROGEN 35.2 mg/dL (7-18); CALCIUM 9.3 mg/dL (8.5-10.1); POTASSIUM 3.7 mmol/L (3.5-5.1)
--- NOTE | 2019-07-30 11:32 | CONSULT ---
Consult - text type - Consultation Consultation Note: NEUROSURGICAL CONSULTATION Daniel Aguilar is a 59 year old male with a history of ESRD requiring hemodialysis. He was in his relatively state of health until one month ago when he began to experience progressive mechanical back pain. This did not respond to conservative efforts and he was sent for MRI Lumbar which revealed suggestion of L12 and L5S1 discitis and instability. There appear to be disc degeneration changes as well as Modic changes and loss of disc height at these levels with facet hypertrophy. There is no paraspinal collection or clear evidence of osteomyelitis. 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 Bumps, pot holes and rail road tracks can elicit significant paroxysms of pain. I discussed the case with Dr. Louis of Infectious Diseases and feel that CT Lumbar without contrast would be a logical next step in his evaluation. will follow.
[2019-07-30 11:36] LABS: CREATININE 9.1 mg/dL (0.55-1.3)
[2019-07-30] MEDS ORDERED: SODIUM CHLORIDE 250 ML IV PRN ×2 (12:00→15:31)
[2019-07-30] MEDS ORDERED: EPOETIN ALFA 3,000 UNIT/1 ML ML IVPUSH ONE (12:00)
[2019-07-30] MEDS: PANTOPRAZOLE 40 MG TABLET (FP) PO SCH (15:04)
[2019-07-30 15:26] LABS: BLOOD UREA NITROGEN 10.8 mg/dL (7-18)
--- NOTE | 2019-07-30 15:31 | PN ---
Progress Note, Physician History of Present Illness: Pt seen and examined at bedside. He tolerated HD today. He denies shortness of breath. - Current Medication List Current Medications: Active Medications Amlodipine Besylate (Norvasc -) 10 mg PO DAILY [facility] Last Admin: 07/30/19 09:15 Dose: 10 mg Calcitriol (Rocaltrol -) 0.25 mcg PO DAILY [facility] Last Admin: 07/30/19 09:15 Dose: 0.25 mcg Calcium Acetate (Phoslo -) 667 mg PO TIDCM [facility] Last Admin: 07/30/19 15:04 Dose: Not Given Carvedilol (Coreg -) 25 mg PO BID [facility] Last Admin: 07/30/19 09:15 Dose: 25 mg Diltiazem HCl (Cardizem Cd -) 240 mg PO DAILY [facility] Last Admin: 07/30/19 15:04 Dose: Not Given Docusate Sodium (Colace -) 100 mg PO BID PRN PRN Reason: CONSTIPATION Furosemide (Lasix -) 40 mg PO BIDLASIX [facility] Last Admin: 07/30/19 06:18 Dose: 40 mg Heparin Sodium (Porcine) (Heparin -) 1,000 unit IVPUSH PRN PRN PRN Reason: Heparin Heparin Sodium (Porcine) (Heparin -) 5,000 unit IVPUSH PRN PRN PRN Reason: Heparin Last Admin: 07/30/19 06:18 Dose: 5,000 unit Hydralazine HCl (Apresoline -) 10 mg PO BID [facility] Last Admin: 07/30/19 09:15 Dose: 10 mg Heparin Sodium (Porcine) 25, (000 unit/ Sodium Chloride) 500 mls @ 16 mls/hr IV TITR [facility]; Protocol Last Titration: 07/30/19 06:18 Dose: 1,100 unit/hr, 22 mls/hr Piperacillin Sod/Tazobactam (Sod 2.25 gm/ Dextrose) 50 mls @ 100 mls/hr IVPB Q8H-IV [facility]; Protocol Last Admin: 07/30/19 09:15 Dose: 100 mls/hr Lidocaine (Lidoderm Patch -) 1 patch TP DAILY [facility] Miscellaneous (Lidoderm Patch Removal) 1 each MC DAILY@2200 [facility] Oxycodone HCl (Roxicodone -) 5 mg PO Q6H PRN PRN Reason: PAIN LEVEL 7 - 10 Pantoprazole Sodium (Protonix -) 40 mg PO DAILY [facility] Last Admin: 07/30/19 15:04 Dose: Not Given Tamsulosin HCl (Flomax -) 0.4 mg PO DAILY@0830 [facility] Last Admin: 07/30/19 09:15 Dose: 0.4 mg Tramadol HCl (Ultram -) 50 mg PO Q6H PRN PRN Reason: PAIN LEVEL 4 - 6 - Objective Vital Signs: Vital Signs Temperature 98.2 F 07/30/19 09:50 Pulse Rate 76 07/30/19 13:59 Respiratory Rate 18 07/30/19 13:59 Blood Pressure 124/79 07/30/19 13:59 O2 Sat by Pulse Oximetry (%) 94 L 07/29/19 21:00 Constitutional: Yes: Calm Eyes: Yes: Conjunctiva Clear HENT: Yes: Atraumatic Neck: Yes: Supple Cardiovascular: Yes: S1, S2 Respiratory: Yes: CTA Bilaterally Gastrointestinal: Yes: Soft Genitourinary: Yes: WNL Musculoskeletal: Yes: Back Pain Edema: No Neurological: Yes: Oriented Psychiatric: Yes: Oriented Labs: CBC, BMP 07/29/19 06:30 07/30/19 13:00 INR, PTT INR 1.32 (0.83-1.09) H 07/28/19 21:50 Problem List - Problems (1) Low back pain Code(s): M54.5 - LOW BACK PAIN Qualifiers: Chronicity: acute Back pain laterality: unspecified Sciatica presence: without sciatica Qualified Code(s): M54.5 - Low back pain (2) Anemia Code(s): D64.9 - ANEMIA, UNSPECIFIED Qualifiers: Anemia type: due to chronic kidney disease Chronic kidney disease stage: stage 4 (severe) Qualified Code(s): N18.4 - Chronic kidney disease, stage 4 ( severe); D63.1 - Anemia in chronic kidney disease (3) ESRD (end stage renal disease) Code(s): N18.6 - END STAGE RENAL DISEASE Assessment/Plan Current Medications Generic Name Dose Route Start Last Admin Trade Name Freq PRN Reason Stop Dose Admin Amlodipine Besylate 10 mg 07/29/19 10:00 07/30/19 09:15 Norvasc - PO 10 mg DAILY [facility] Administration Calcitriol 0.25 mcg 07/29/19 10:00 07/30/19 09:15 Rocaltrol - PO 0.25 mcg DAILY [facility] Administration Calcium Acetate 667 mg 07/29/19 08:00 07/30/19 15:04 Phoslo - PO Not Given TIDCM [facility] Carvedilol 25 mg 07/29/19 10:00 07/30/19 09:15 Coreg - PO 25 mg BID [facility] Administration Diltiazem HCl 240 mg 07/30/19 10:00 07/30/19 15:04 Cardizem Cd - PO Not Given DAILY [facility] Docusate Sodium 100 mg 07/30/19 09:21 Colace - PO BID PRN CONSTIPATION Furosemide 40 mg 07/29/19 06:00 07/30/19 06:18 Lasix - PO 40 mg BIDLASIX [facility] Administration Heparin Sodium (Porcine) 1,000 unit 07/29/19 11:40 Heparin - IVPUSH PRN PRN Heparin Heparin Sodium (Porcine) 5,000 unit 07/29/19 11:40 07/30/19 06:18 Heparin - IVPUSH 5,000 unit PRN PRN Administration Heparin Hydralazine HCl 10 mg 07/29/19 10:00 07/30/19 09:15 Apresoline - PO 10 mg BID [facility] Administration Heparin Sodium (Porcine) 25, 500 mls @ 16 mls/hr 07/29/19 11:45 07/30/19 06: 18 000 unit/ Sodium Chloride IV 1,100 unit/hr TITR [facility] 22 mls/hr Titration Protocol 800 UNIT/HR Piperacillin Sod/Tazobactam 50 mls @ 100 mls/hr 07/29/19 18:00 07/30/19 09:15 Sod 2.25 gm/ Dextrose IVPB 100 mls/hr Q8H-IV [facility] Administration Protocol Lidocaine 1 patch 07/30/19 10:00 Lidoderm Patch - TP DAILY [facility] Miscellaneous 1 each 07/30/19 22:00 Lidoderm Patch Removal MC DAILY@2200 [facility] Oxycodone HCl 5 mg 07/30/19 09:21 Roxicodone - PO Q6H PRN PAIN LEVEL 7 - 10 Pantoprazole Sodium 40 mg 07/30/19 10:00 07/30/19 15:04 Protonix - PO Not Given DAILY [facility] Tamsulosin HCl 0.4 mg 07/29/19 08:30 07/30/19 09:15 Flomax - PO 0.4 mg DAILY@0830 [facility] Administration Tramadol HCl 50 mg 07/30/19 09:20 Ultram - PO Q6H PRN PAIN LEVEL 4 - 6 Impression 1. ESRD 2. a-flutter 3. diskitis/osteomyelitis L5/S1 4. htn 5. hld Plan - pt tolerated HD today - next HD on Friday (holiday schedule - orders written) - rest per primary team - renal diet - rx 3 1/2 abf 450 2 k bath heparin 3500 loading, 98.5 dw, epogen 6000 units, hectorol 2.5 mcg
[2019-07-30 15:38] LABS: HEMATOCRIT 28.9 % (35.4-49); HEMOGLOBIN 9.4 GM/dL (11.7-16.9); MCH 30.7 pg (25.7-33.7); MCHC 32.5 g/dl (32.0-35.9); MEAN CELL VOLUME 94.4 fl (80-96); MEAN PLT VOLUME 8.6 fl (7.5-11.1); PLATELET COUNT 240 K/MM3 (134-434); RBC 3.06 M/mm3 (4.00-5.60); RDW 17.6 % (11.9-15.9)
[2019-07-30] MEDS: LIDOCAINE 5% TOPICAL PATCH TP SCH (16:49)
[2019-07-30] MEDS: HEPARIN - 25,000 UNIT in SODIUM CHLORIDE 495 ML IV SCH ×2 (16:50→23:00)
[2019-07-30] MEDS: LIDOCAINE PATCH REMOVAL MC SCH (23:03)
[2019-07-31] MEDS ORDERED: PIPERACILLIN/TAZOBACTAM 2.25 GM VIAL IVPB ONE ×3 (02:13→18:08)
[2019-07-31] MEDS ORDERED: DEXTROSE 5%-WATER - 50 ML IVPB ONE ×3 (02:13→18:08)
[2019-07-31] MEDS: PIPERACILLIN/TAZOB 2.25 GM 2.25 GM in DEXTROSE 5%-WATER - 50 ML IVPB SCH ×3 (02:35→18:09)
[2019-07-31] MEDS: FUROSEMIDE 40 MG TABLET (FP) PO SCH ×2 (06:41→15:13)
--- NOTE | 2019-07-31 07:22 | PN ---
Progress Note, Physician Chief Complaint: back pain History of Present Illness: back still hurting mild chest tightness last night when laying on back--nasal cannula O2 relieved sx. mild sob with this, none presently no palpitations, leg swelling - Current Medication List Current Medications: Active Medications Amlodipine Besylate (Norvasc -) 10 mg PO DAILY [facility] Last Admin: 07/30/19 09:15 Dose: 10 mg Calcitriol (Rocaltrol -) 0.25 mcg PO DAILY [facility] Last Admin: 07/30/19 09:15 Dose: 0.25 mcg Calcium Acetate (Phoslo -) 667 mg PO TIDCM [facility] Last Admin: 07/30/19 16:49 Dose: 667 mg Carvedilol (Coreg -) 25 mg PO BID [facility] Last Admin: 07/30/19 23:02 Dose: 25 mg Diltiazem HCl (Cardizem Cd -) 240 mg PO DAILY [facility] Last Admin: 07/30/19 15:04 Dose: Not Given Docusate Sodium (Colace -) 100 mg PO BID PRN PRN Reason: CONSTIPATION Furosemide (Lasix -) 40 mg PO BIDLASIX [facility] Last Admin: 07/31/19 06:41 Dose: 40 mg Heparin Sodium (Porcine) (Heparin -) 1,000 unit IVPUSH PRN PRN PRN Reason: Heparin Heparin Sodium (Porcine) (Heparin -) 5,000 unit IVPUSH PRN PRN PRN Reason: Heparin Last Admin: 07/30/19 16:50 Dose: 5,000 unit Hydralazine HCl (Apresoline -) 10 mg PO BID [facility] Last Admin: 07/30/19 23:02 Dose: 10 mg Heparin Sodium (Porcine) 25, (000 unit/ Sodium Chloride) 500 mls @ 16 mls/hr IV TITR [facility]; Protocol Last Admin: 07/30/19 23:00 Dose: 1,350 unit/hr, 27 mls/hr Piperacillin Sod/Tazobactam (Sod 2.25 gm/ Dextrose) 50 mls @ 100 mls/hr IVPB Q8H-IV [facility]; Protocol Last Admin: 07/31/19 02:35 Dose: 100 mls/hr Sodium Chloride (Normal Saline -) 250 mls @ 3,000 mls/hr IV PRN PRN PRN Reason: Hypotension during Dialysis Stop: 07/31/19 15:31 Lidocaine (Lidoderm Patch -) 1 patch TP DAILY [facility] Last Admin: 07/30/19 16:49 Dose: 1 patch Miscellaneous (Lidoderm Patch Removal) 1 each MC DAILY@2200 [facility] Last Admin: 07/30/19 23:03 Dose: 1 each Oxycodone HCl (Roxicodone -) 5 mg PO Q6H PRN PRN Reason: PAIN LEVEL 7 - 10 Pantoprazole Sodium (Protonix -) 40 mg PO DAILY [facility] Last Admin: 07/30/19 15:04 Dose: Not Given Tamsulosin HCl (Flomax -) 0.4 mg PO DAILY@0830 [facility] Last Admin: 07/30/19 09:15 Dose: 0.4 mg Tramadol HCl (Ultram -) 50 mg PO Q6H PRN PRN Reason: PAIN LEVEL 4 - 6 - Objective Vital Signs: Vital Signs Temperature 98.5 F 07/31/19 01:00 Pulse Rate 95 H 07/31/19 05:00 Respiratory Rate 20 07/31/19 05:00 Blood Pressure 131/89 07/31/19 05:00 O2 Sat by Pulse Oximetry (%) 96 07/30/19 21:00 Constitutional: Yes: Well Nourished, No Distress, Calm Cardiovascular: Yes: Regular Rate and Rhythm, JVD, S1, S2. No: Gallop, Murmur Respiratory: Yes: Regular, CTA Bilaterally. No: Accessory Muscle Use, Rales, Wheezes Extremities: No: Cold Edema: No Neurological: Yes: Alert, Oriented Psychiatric: No: Agitated Labs: CBC, BMP 07/30/19 13:00 07/30/19 13:00 INR, PTT INR 1.32 (0.83-1.09) H 07/28/19 21:50 Assessment/Plan echo 10/2018 nl LV/RV function, mild MR, mild TR, mild AR, mild dilation of ao root mibi 08/2017 nl EF, no ischemia EKG: aflutter, rate controlled, no ischemic changes CXR: no congestion tele: AF/flutter hr's controlled (to 100s). 7 beats WCT ? NSVT A/P: 59M h/o EtOH abuse, CHF, HTN, CKD, COPD, aflutter, esrd on hd here with back pain. aflutter: -rate improved now, cont coreg. cont tele. Titrate Cardizem for improved rate control -chadsvasc warrants ac. would start eliquis 5 bid but given possible septic discitis/spine osteo he may need procedure so would continue hep gtt for now. chronic diastolic chf: -appears volume-up with JVD and orthopnea relieved by NC oxygen -well-compensated at present--lasix and UF volume removal per renal (limited by muscle cramping per pt) back pain: -being evaluated by ID, spine/neurosurgery--no infectious etiology documented at present, no intervention currently planned NSVT: -brief run. -EF preserved 10/27--will rpt echo to confirm no change given mult rf's for systolic dysfunction -lytes stable--routine repletion levels copd: -no current sx's esrd: -hd per renal HTN: - controlled - cont current meds HLD: - cont statin
--- NOTE | 2019-07-31 07:53 | PN ---
Progress Note, Physician Chief Complaint: Being treated for discitis. Lower lumbar pain persists History of Present Illness: Patient is a 59 year old male with PMH of ESRD (HD M/W/F), CHF, COPD (on 3L O2 during dialysis), HTN, BPH, gastric ulcer who presents with osteomyelitis/ discitis. - Current Medication List Current Medications: Active Medications Amlodipine Besylate (Norvasc -) 10 mg PO DAILY [facility] Last Admin: 07/30/19 09:15 Dose: 10 mg Calcitriol (Rocaltrol -) 0.25 mcg PO DAILY [facility] Last Admin: 07/30/19 09:15 Dose: 0.25 mcg Calcium Acetate (Phoslo -) 667 mg PO TIDCM [facility] Last Admin: 07/30/19 16:49 Dose: 667 mg Carvedilol (Coreg -) 25 mg PO BID [facility] Last Admin: 07/30/19 23:02 Dose: 25 mg Diltiazem HCl (Cardizem Cd -) 240 mg PO DAILY [facility] Last Admin: 07/30/19 15:04 Dose: Not Given Docusate Sodium (Colace -) 100 mg PO BID PRN PRN Reason: CONSTIPATION Furosemide (Lasix -) 40 mg PO BIDLASIX [facility] Last Admin: 07/31/19 06:41 Dose: 40 mg Heparin Sodium (Porcine) (Heparin -) 1,000 unit IVPUSH PRN PRN PRN Reason: Heparin Heparin Sodium (Porcine) (Heparin -) 5,000 unit IVPUSH PRN PRN PRN Reason: Heparin Last Admin: 07/30/19 16:50 Dose: 5,000 unit Hydralazine HCl (Apresoline -) 10 mg PO BID [facility] Last Admin: 07/30/19 23:02 Dose: 10 mg Heparin Sodium (Porcine) 25, (000 unit/ Sodium Chloride) 500 mls @ 16 mls/hr IV TITR [facility]; Protocol Last Admin: 07/30/19 23:00 Dose: 1,350 unit/hr, 27 mls/hr Piperacillin Sod/Tazobactam (Sod 2.25 gm/ Dextrose) 50 mls @ 100 mls/hr IVPB Q8H-IV [facility]; Protocol Last Admin: 07/31/19 02:35 Dose: 100 mls/hr Sodium Chloride (Normal Saline -) 250 mls @ 3,000 mls/hr IV PRN PRN PRN Reason: Hypotension during Dialysis Stop: 07/31/19 15:31 Lidocaine (Lidoderm Patch -) 1 patch TP DAILY [facility] Last Admin: 07/30/19 16:49 Dose: 1 patch Miscellaneous (Lidoderm Patch Removal) 1 each MC DAILY@2200 [facility] Last Admin: 07/30/19 23:03 Dose: 1 each Oxycodone HCl (Roxicodone -) 5 mg PO Q6H PRN PRN Reason: PAIN LEVEL 7 - 10 Pantoprazole Sodium (Protonix -) 40 mg PO DAILY [facility] Last Admin: 07/30/19 15:04 Dose: Not Given Tamsulosin HCl (Flomax -) 0.4 mg PO DAILY@0830 [facility] Last Admin: 07/30/19 09:15 Dose: 0.4 mg Tramadol HCl (Ultram -) 50 mg PO Q6H PRN PRN Reason: PAIN LEVEL 4 - 6 - Objective Vital Signs: Vital Signs Temperature 98.5 F 07/31/19 01:00 Pulse Rate 95 H 07/31/19 05:00 Respiratory Rate 20 07/31/19 05:00 Blood Pressure 131/89 07/31/19 05:00 O2 Sat by Pulse Oximetry (%) 96 07/30/19 21:00 Constitutional: Yes: Well Nourished, No Distress, Calm Eyes: Yes: WNL, Conjunctiva Clear HENT: Yes: WNL, Atraumatic, Normocephalic Neck: Yes: WNL, Supple, Trachea Midline Cardiovascular: Yes: WNL, Regular Rate and Rhythm Respiratory: Yes: WNL, Regular, CTA Bilaterally Gastrointestinal: Yes: WNL, Normal Bowel Sounds ...Rectal Exam: Yes: Deferred Genitourinary: Yes: WNL Breast(s): Yes: WNL Musculoskeletal: Yes: Back Pain, Muscle Pain (lower loumbar pain) Extremities: Yes: WNL Edema: No Peripheral Pulses WNL: Yes Peripheral Pulses: Left Radial: 2+, Right Radial: 2+, Left Doralis Pedis: 2+, Right Dorsalis Pedis: 2+, Left Femoral: 2+, Right Femoral: 2+ Integumentary: Yes: WNL Neurological: Yes: WNL, Alert, Oriented ...Motor Strength: WNL Psychiatric: Yes: WNL Labs: INR, PTT INR 1.32 (0.83-1.09) H 07/28/19 21:50 - ....Imaging Cat Scan: Pending MRI: Report Reviewed (Lumbar) Problem List - Problems (1) Discitis of lumbar region Assessment/Plan: L12 and L5S1 discitis and instability on MRI disc degeneration changes as well as Modic changes and loss of disc height at these levels with facet hypertrophy no paraspinal collection or clear evidence of osteomyelitis ID following c/w zosyn and vanco with HD Dr Ruiz following lumbar CT without contrast ordered Code(s): M46.46 - DISCITIS, UNSPECIFIED, LUMBAR REGION (2) ESRD on hemodialysis Assessment/Plan: ESRD on HD renal following HD as per schedule Code(s): N18.6 - END STAGE RENAL DISEASE; Z99.2 - DEPENDENCE ON RENAL DIALYSIS (3) BPH (benign prostatic hyperplasia) Assessment/Plan: c/w home flomax Code(s): N40.0 - BENIGN PROSTATIC HYPERPLASIA WITHOUT LOWER URINRY TRACT SYMP (4) Gastric ulcer Assessment/Plan: c/w home pantoprozole Code(s): K25.9 - GASTRIC ULCER, UNSP ACUTE OR CHRONIC, W/O HEMOR OR PERF (5) Prophylactic measure Assessment/Plan: FEN renal diet monitor electrolytes HD as per renal DVT on heparin gtt Dispo mainatin as in patient full code discharge planning Code(s): Z29.9 - ENCOUNTER FOR PROPHYLACTIC MEASURES, UNSPECIFIED (6) CHF (congestive heart failure) Assessment/Plan: chronic diastolic CKF appears euvolemic c/w lasix c/w HD Code(s): I50.9 - HEART FAILURE, UNSPECIFIED Qualifiers: Heart failure chronicity: chronic (7) COPD (chronic obstructive pulmonary disease) Code(s): J44.9 - CHRONIC OBSTRUCTIVE PULMONARY DISEASE, UNSPECIFIED (8) ESRD (end stage renal disease) Assessment/Plan: HD as per renal Code(s): N18.6 - END STAGE RENAL DISEASE (9) HTN (hypertension) Assessment/Plan: normotensive c/w hydralazine, norvasc Code(s): I10 - ESSENTIAL (PRIMARY) HYPERTENSION (10) Hyperlipidemia Assessment/Plan: diet controlled Code(s): E78.5 - HYPERLIPIDEMIA, UNSPECIFIED Qualifiers: Hyperlipidemia type: pure hypercholesterolemia Qualified Code(s): E78.00 - Pure hypercholesterolemia, unspecified; E78.0 - Pure hypercholesterolemia (11) Low back pain Assessment/Plan: tramadol/roxicodone for pain lidoderm patch Code(s): M54.5 - LOW BACK PAIN Qualifiers: Chronicity: acute Back pain laterality: unspecified Sciatica presence: without sciatica Qualified Code(s): M54.5 - Low back pain (12) Atrial flutter Assessment/Plan: rate improved now c/w coreg c/w tele can up-titrate Cardizem for improved rate control chadsvasc warrants AC but given possible septic discitis/spine osteo he may need procedure so would continue hep gtt for now can re-start eliquis 5 bid if no surgical intervention planned Code(s): I48.92 - UNSPECIFIED ATRIAL FLUTTER Qualifiers: Atrial flutter type: unspecified Qualified Code(s): I48.92 - Unspecified atrial flutter Visit type - Emergency Visit Emergency Visit: Yes ED Registration Date: 07/28/19 Care time: The patient presented to the Emergency Department on the above date and was hospitalized for further evaluation of their emergent condition. - New Patient This patient is new to me today: No - Critical Care Critical Care patient: No - Discharge Referral Referred to [facility] Med [facility] No
[2019-07-31 07:57] LABS: BASO % 0.6 % (0-2.0); EOS % 3.7 % (0-4.5); HEMATOCRIT 30.7 % (35.4-49); LYMPH % 20.8 % (8-40); MCH 30.6 pg (25.7-33.7); MCHC 32.5 g/dl (32.0-35.9); MEAN CELL VOLUME 94.2 fl (80-96); MEAN PLT VOLUME 8.1 fl (7.5-11.1); MONO % 7.4 % (3.8-10.2); NEUT % 67.5 % (42.8-82.8); PLATELET COUNT 242 K/MM3 (134-434); RBC 3.26 M/mm3 (4.00-5.60); RDW 17.6 % (11.9-15.9)
[2019-07-31 08:16] LABS: ALBUMIN 2.7 g/dl (3.4-5.0); BILIRUBIN,TOTAL 0.4 mg/dL (0.2-1); BLOOD UREA NITROGEN 24.2 mg/dL (7-18); CREATININE 6.7 mg/dL (0.55-1.3); MAGNESIUM 1.9 mg/dL (1.8-2.4); POTASSIUM 3.9 mmol/L (3.5-5.1); TOT PROT 7.1 g/dl (6.4-8.2)
[2019-07-31] MEDS: LIDOCAINE 5% TOPICAL PATCH TP SCH (09:13)
[2019-07-31] MEDS: CARVEDILOL 25 MG TABLET (FP) PO SCH ×2 (09:13→21:47)
[2019-07-31] MEDS: CALCIUM ACETATE 667 MG CAPSULE (FP) PO SCH ×3 (09:14→18:09)
[2019-07-31] MEDS: TAMSULOSIN HCL 0.4 MG CAP PO SCH (09:14)
[2019-07-31] MEDS: hydrALAZINE HCL 10 MG TABLET PO SCH ×2 (09:14→21:47)
[2019-07-31] MEDS: amLODIPine BESYLATE 10 MG TABLET (FP) PO SCH (09:14)
[2019-07-31] MEDS: CALCITRIOL 0.25 MCG CAPSULE (FP) PO SCH (09:14)
[2019-07-31] MEDS: PANTOPRAZOLE 40 MG TABLET (FP) PO SCH (09:14)
--- NOTE | 2019-07-31 11:36 | PN ---
Progress Note, Physician History of Present Illness: stable no new issues await cx reports d/w neurosurgery - Current Medication List Current Medications: Active Medications Amlodipine Besylate (Norvasc -) 10 mg PO DAILY [facility] Last Admin: 07/31/19 09:14 Dose: Not Given Calcitriol (Rocaltrol -) 0.25 mcg PO DAILY [facility] Last Admin: 07/31/19 09:14 Dose: 0.25 mcg Calcium Acetate (Phoslo -) 667 mg PO TIDCM [facility] Last Admin: 07/31/19 09:14 Dose: 667 mg Carvedilol (Coreg -) 25 mg PO BID [facility] Last Admin: 07/31/19 09:13 Dose: Not Given Diltiazem HCl (Cardizem Cd -) 240 mg PO DAILY [facility] Last Admin: 07/31/19 09:15 Dose: 240 mg Docusate Sodium (Colace -) 100 mg PO BID PRN PRN Reason: CONSTIPATION Furosemide (Lasix -) 40 mg PO BIDLASIX [facility] Last Admin: 07/31/19 06:41 Dose: 40 mg Heparin Sodium (Porcine) (Heparin -) 1,000 unit IVPUSH PRN PRN PRN Reason: Heparin Heparin Sodium (Porcine) (Heparin -) 5,000 unit IVPUSH PRN PRN PRN Reason: Heparin Last Admin: 07/30/19 16:50 Dose: 5,000 unit Hydralazine HCl (Apresoline -) 10 mg PO BID [facility] Last Admin: 07/31/19 09:14 Dose: 10 mg Heparin Sodium (Porcine) 25, (000 unit/ Sodium Chloride) 500 mls @ 16 mls/hr IV TITR [facility]; Protocol Last Admin: 07/30/19 23:00 Dose: 1,350 unit/hr, 27 mls/hr Piperacillin Sod/Tazobactam (Sod 2.25 gm/ Dextrose) 50 mls @ 100 mls/hr IVPB Q8H-IV [facility]; Protocol Last Admin: 07/31/19 09:15 Dose: 100 mls/hr Sodium Chloride (Normal Saline -) 250 mls @ 3,000 mls/hr IV PRN PRN PRN Reason: Hypotension during Dialysis Stop: 07/31/19 15:31 Vancomycin HCl 1,000 mg/ (Dextrose) 250 mls @ 200 mls/hr IVPB Q24H [facility]; Protocol Lidocaine (Lidoderm Patch -) 1 patch TP DAILY [facility] Last Admin: 07/31/19 09:13 Dose: 1 patch Miscellaneous (Lidoderm Patch Removal) 1 each MC DAILY@2200 [facility] Last Admin: 07/30/19 23:03 Dose: 1 each Oxycodone HCl (Roxicodone -) 5 mg PO Q6H PRN PRN Reason: PAIN LEVEL 7 - 10 Pantoprazole Sodium (Protonix -) 40 mg PO DAILY [facility] Last Admin: 07/31/19 09:14 Dose: 40 mg Tamsulosin HCl (Flomax -) 0.4 mg PO DAILY@0830 [facility] Last Admin: 07/31/19 09:14 Dose: 0.4 mg Tramadol HCl (Ultram -) 50 mg PO Q6H PRN PRN Reason: PAIN LEVEL 4 - 6 - Objective Vital Signs: Vital Signs Temperature 98.5 F 07/31/19 01:00 Pulse Rate 95 H 07/31/19 05:00 Respiratory Rate 20 07/31/19 05:00 Blood Pressure 131/89 07/31/19 05:00 O2 Sat by Pulse Oximetry (%) 96 07/30/19 21:00 Constitutional: Yes: Calm, Mild Distress Cardiovascular: Yes: S1, S2 Respiratory: Yes: Regular, CTA Bilaterally Gastrointestinal: Yes: Normal Bowel Sounds, Soft Musculoskeletal: Yes: Back Pain Extremities: Yes: WNL Neurological: Yes: Alert, Oriented Psychiatric: Yes: Alert, Oriented Labs: CBC, BMP 07/31/19 07:20 07/31/19 07:20 INR, PTT INR 1.32 (0.83-1.09) H 07/28/19 21:50 Assessment/Plan Problem List - Problems (1) Discitis of lumbar region Code(s): M46.46 - DISCITIS, UNSPECIFIED, LUMBAR REGION (2) ESRD on hemodialysis Code(s): N18.6 - END STAGE RENAL DISEASE; Z99.2 - DEPENDENCE ON RENAL DIALYSIS (3) BPH (benign prostatic hyperplasia) Code(s): N40.0 - BENIGN PROSTATIC HYPERPLASIA WITHOUT LOWER URINRY TRACT SYMP (4) Gastric ulcer Code(s): K25.9 - GASTRIC ULCER, UNSP ACUTE OR CHRONIC, W/O HEMOR OR PERF (5) Prophylactic measure Code(s): Z29.9 - ENCOUNTER FOR PROPHYLACTIC MEASURES, UNSPECIFIED (6) CHF (congestive heart failure) Code(s): I50.9 - HEART FAILURE, UNSPECIFIED Qualifiers: Heart failure chronicity: chronic (7) COPD (chronic obstructive pulmonary disease) Code(s): J44.9 - CHRONIC OBSTRUCTIVE PULMONARY DISEASE, UNSPECIFIED (8) ESRD (end stage renal disease) Code(s): N18.6 - END STAGE RENAL DISEASE (9) HTN (hypertension) Code(s): I10 - ESSENTIAL (PRIMARY) HYPERTENSION (10) Hyperlipidemia Code(s): E78.5 - HYPERLIPIDEMIA, UNSPECIFIED Qualifiers: Hyperlipidemia type: pure hypercholesterolemia Qualified Code(s): E78.00 - Pure hypercholesterolemia, unspecified; E78.0 - Pure hypercholesterolemia (11) Low back pain Code(s): M54.5 - LOW BACK PAIN Qualifiers: Chronicity: acute Back pain laterality: unspecified Sciatica presence: without sciatica Qualified Code(s): M54.5 - Low back pain (12) Atrial flutter Code(s): I48.92 - UNSPECIFIED ATRIAL FLUTTER Qualifiers: Atrial flutter type: unspecified Qualified Code(s): I48.92 - plan await for cx report dialysis continue abx rest as per the team
--- NOTE | 2019-07-31 11:40 | PN ---
Progress Note, Physician History of Present Illness: stable back pain - Current Medication List Current Medications: Active Medications Amlodipine Besylate (Norvasc -) 10 mg PO DAILY [facility] Last Admin: 07/31/19 09:14 Dose: Not Given Calcitriol (Rocaltrol -) 0.25 mcg PO DAILY [facility] Last Admin: 07/31/19 09:14 Dose: 0.25 mcg Calcium Acetate (Phoslo -) 667 mg PO TIDCM [facility] Last Admin: 07/31/19 09:14 Dose: 667 mg Carvedilol (Coreg -) 25 mg PO BID [facility] Last Admin: 07/31/19 09:13 Dose: Not Given Diltiazem HCl (Cardizem Cd -) 240 mg PO DAILY [facility] Last Admin: 07/31/19 09:15 Dose: 240 mg Docusate Sodium (Colace -) 100 mg PO BID PRN PRN Reason: CONSTIPATION Furosemide (Lasix -) 40 mg PO BIDLASIX [facility] Last Admin: 07/31/19 06:41 Dose: 40 mg Heparin Sodium (Porcine) (Heparin -) 1,000 unit IVPUSH PRN PRN PRN Reason: Heparin Heparin Sodium (Porcine) (Heparin -) 5,000 unit IVPUSH PRN PRN PRN Reason: Heparin Last Admin: 07/30/19 16:50 Dose: 5,000 unit Hydralazine HCl (Apresoline -) 10 mg PO BID [facility] Last Admin: 07/31/19 09:14 Dose: 10 mg Heparin Sodium (Porcine) 25, (000 unit/ Sodium Chloride) 500 mls @ 16 mls/hr IV TITR [facility]; Protocol Last Admin: 07/30/19 23:00 Dose: 1,350 unit/hr, 27 mls/hr Piperacillin Sod/Tazobactam (Sod 2.25 gm/ Dextrose) 50 mls @ 100 mls/hr IVPB Q8H-IV [facility]; Protocol Last Admin: 07/31/19 09:15 Dose: 100 mls/hr Sodium Chloride (Normal Saline -) 250 mls @ 3,000 mls/hr IV PRN PRN PRN Reason: Hypotension during Dialysis Stop: 07/31/19 15:31 Vancomycin HCl (Vancomycin (Pre-Docked)) 1,000 mg in 250 mls @ 200 mls/hr IVPB Q24H [facility]; Protocol Lidocaine (Lidoderm Patch -) 1 patch TP DAILY [facility] Last Admin: 07/31/19 09:13 Dose: 1 patch Miscellaneous (Lidoderm Patch Removal) 1 each MC DAILY@2200 [facility] Last Admin: 07/30/19 23:03 Dose: 1 each Oxycodone HCl (Roxicodone -) 5 mg PO Q6H PRN PRN Reason: PAIN LEVEL 7 - 10 Pantoprazole Sodium (Protonix -) 40 mg PO DAILY [facility] Last Admin: 07/31/19 09:14 Dose: 40 mg Tamsulosin HCl (Flomax -) 0.4 mg PO DAILY@0830 [facility] Last Admin: 07/31/19 09:14 Dose: 0.4 mg Tramadol HCl (Ultram -) 50 mg PO Q6H PRN PRN Reason: PAIN LEVEL 4 - 6 - Objective Vital Signs: Vital Signs Temperature 98.5 F 07/31/19 01:00 Pulse Rate 95 H 07/31/19 05:00 Respiratory Rate 20 07/31/19 05:00 Blood Pressure 131/89 07/31/19 05:00 O2 Sat by Pulse Oximetry (%) 96 07/30/19 21:00 Constitutional: Yes: No Distress, Calm Cardiovascular: Yes: S1, S2 Respiratory: Yes: Regular, CTA Bilaterally Gastrointestinal: Yes: Normal Bowel Sounds, Soft Musculoskeletal: Yes: Back Pain Extremities: Yes: WNL Neurological: Yes: Alert, Oriented Psychiatric: Yes: Alert, Oriented Labs: CBC, BMP 07/31/19 07:20 07/31/19 07:20 INR, PTT INR 1.32 (0.83-1.09) H 07/28/19 21:50 Assessment/Plan Problem List - Problems (1) Discitis of lumbar region Code(s): M46.46 - DISCITIS, UNSPECIFIED, LUMBAR REGION (2) ESRD on hemodialysis Code(s): N18.6 - END STAGE RENAL DISEASE; Z99.2 - DEPENDENCE ON RENAL DIALYSIS (3) BPH (benign prostatic hyperplasia) Code(s): N40.0 - BENIGN PROSTATIC HYPERPLASIA WITHOUT LOWER URINRY TRACT SYMP (4) Gastric ulcer Code(s): K25.9 - GASTRIC ULCER, UNSP ACUTE OR CHRONIC, W/O HEMOR OR PERF (5) Prophylactic measure Code(s): Z29.9 - ENCOUNTER FOR PROPHYLACTIC MEASURES, UNSPECIFIED (6) CHF (congestive heart failure) Code(s): I50.9 - HEART FAILURE, UNSPECIFIED Qualifiers: Heart failure chronicity: chronic (7) COPD (chronic obstructive pulmonary disease) Code(s): J44.9 - CHRONIC OBSTRUCTIVE PULMONARY DISEASE, UNSPECIFIED (8) ESRD (end stage renal disease) Code(s): N18.6 - END STAGE RENAL DISEASE (9) HTN (hypertension) Code(s): I10 - ESSENTIAL (PRIMARY) HYPERTENSION (10) Hyperlipidemia Code(s): E78.5 - HYPERLIPIDEMIA, UNSPECIFIED Qualifiers: Hyperlipidemia type: pure hypercholesterolemia Qualified Code(s): E78.00 - Pure hypercholesterolemia, unspecified; E78.0 - Pure hypercholesterolemia (11) Low back pain Code(s): M54.5 - LOW BACK PAIN Qualifiers: Chronicity: acute Back pain laterality: unspecified Sciatica presence: without sciatica Qualified Code(s): M54.5 - Low back pain (12) Atrial flutter Code(s): I48.92 - UNSPECIFIED ATRIAL FLUTTER Qualifiers: Atrial flutter type: unspecified Qualified Code(s): I48.92 - plan blood cx results noted repeat blood cx ordered will give a dose of vanco will check vanco level tomorrow await for further imaging studies
[2019-07-31] MEDS: VANCOMYCIN 1 GRAM (PRE-DOCKED) 1,000 MG/250 ML BAG IVPB SCH (11:53)
[2019-07-31] MEDS: HEPARIN NA (PORCINE) 5,000 UNITS/ML 1ML VIAL IVPUSH PRN ×2 (12:00→21:46)
[2019-07-31] MEDS: HEPARIN - 25,000 UNIT in SODIUM CHLORIDE 495 ML IV SCH (12:31)
[2019-07-31] MEDS: oxyCODONE HCL 5 MG TABLET PO PRN ×2 (12:56→21:47)
--- NOTE | 2019-07-31 18:16 | PN ---
Progress Note (short form) - Note Progress Note: 1. ESRD 2. a-flutter 3. diskitis/osteomyelitis L5/S1 4. htn 5. hld Current Medications Amlodipine Besylate (Norvasc -) 10 mg PO DAILY [facility] Last Admin: 07/31/19 09:14 Dose: Not Given Calcitriol (Rocaltrol -) 0.25 mcg PO DAILY [facility] Last Admin: 07/31/19 09:14 Dose: 0.25 mcg Calcium Acetate (Phoslo -) 667 mg PO TIDCM [facility] Last Admin: 07/31/19 18:09 Dose: 667 mg Carvedilol (Coreg -) 25 mg PO BID [facility] Last Admin: 07/31/19 09:13 Dose: Not Given Diltiazem HCl (Cardizem Cd -) 240 mg PO DAILY [facility] Last Admin: 07/31/19 09:15 Dose: 240 mg Docusate Sodium (Colace -) 100 mg PO BID PRN PRN Reason: CONSTIPATION Furosemide (Lasix -) 40 mg PO BIDLASIX [facility] Last Admin: 07/31/19 15:13 Dose: 40 mg Heparin Sodium (Porcine) (Heparin -) 1,000 unit IVPUSH PRN PRN PRN Reason: Heparin Heparin Sodium (Porcine) (Heparin -) 5,000 unit IVPUSH PRN PRN PRN Reason: Heparin Last Admin: 07/31/19 12:00 Dose: 5,000 unit Hydralazine HCl (Apresoline -) 10 mg PO BID [facility] Last Admin: 07/31/19 09:14 Dose: 10 mg Heparin Sodium (Porcine) 25, (000 unit/ Sodium Chloride) 500 mls @ 16 mls/hr IV TITR [facility]; Protocol Last Admin: 07/31/19 12:31 Dose: 1,500 unit/hr, 30 mls/hr Piperacillin Sod/Tazobactam (Sod 2.25 gm/ Dextrose) 50 mls @ 100 mls/hr IVPB Q8H-IV [facility]; Protocol Last Admin: 07/31/19 18:09 Dose: 100 mls/hr Sodium Chloride (Normal Saline -) 250 mls @ 3,000 mls/hr IV PRN PRN PRN Reason: Hypotension during Dialysis Stop: 07/31/19 15:31 Vancomycin HCl (Vancomycin (Pre-Docked)) 1,000 mg in 250 mls @ 200 mls/hr IVPB Q24H [facility]; Protocol Last Admin: 07/31/19 11:53 Dose: 200 mls/hr Lidocaine (Lidoderm Patch -) 1 patch TP DAILY [facility] Last Admin: 07/31/19 09:13 Dose: 1 patch Miscellaneous (Lidoderm Patch Removal) 1 each MC DAILY@2200 [facility] Last Admin: 07/30/19 23:03 Dose: 1 each Oxycodone HCl (Roxicodone -) 5 mg PO Q6H PRN PRN Reason: PAIN LEVEL 7 - 10 Last Admin: 07/31/19 12:56 Dose: 5 mg Pantoprazole Sodium (Protonix -) 40 mg PO DAILY [facility] Last Admin: 07/31/19 09:14 Dose: 40 mg Tamsulosin HCl (Flomax -) 0.4 mg PO DAILY@0830 [facility] Last Admin: 07/31/19 09:14 Dose: 0.4 mg Tramadol HCl (Ultram -) 50 mg PO Q6H PRN PRN Reason: PAIN LEVEL 4 - 6 Last Vital Signs Temp Pulse Resp BP Pulse Ox 98.1 F 65 20 105/61 95 07/31/19 17:00 07/31/19 17:00 07/31/19 17:00 07/31/19 17:00 07/31/19 09:00 Lungs clear Heart reg Abd soft nontender CBC, BMP 07/31/19 07:20 07/31/19 07:20 for hd tomorrow
[2019-07-31] MEDS ORDERED: POLYETHYLENE GLYCOL 3350 119 GM BTL PO ONE (21:26)
[2019-07-31] MEDS: LIDOCAINE PATCH REMOVAL MC SCH (21:47)
[2019-07-31] MEDS: DOCUSATE SODIUM 100 MG CAPSULE (FP) PO PRN (21:47)
[2019-07-31] MEDS ORDERED: dilTIAZem HCL 50 MG/10 ML - 10 ML VIAL IVPUSH ONE (22:09)
[2019-08-01] MEDS ORDERED: DEXTROSE 5%-WATER - 50 ML IVPB ONE ×3 (01:12→17:31)
[2019-08-01] MEDS ORDERED: PIPERACILLIN/TAZOBACTAM 2.25 GM VIAL IVPB ONE ×3 (01:12→17:30)
[2019-08-01] MEDS: PIPERACILLIN/TAZOB 2.25 GM 2.25 GM in DEXTROSE 5%-WATER - 50 ML IVPB SCH ×3 (02:03→17:55)
[2019-08-01] MEDS: HEPARIN NA (PORCINE) 5,000 UNITS/ML 1ML VIAL IVPUSH PRN ×2 (05:30→18:42)
[2019-08-01] MEDS: FUROSEMIDE 40 MG TABLET (FP) PO SCH ×2 (05:57→16:08)
[2019-08-01] MEDS ORDERED: PT OWN MED DRAWER 7, Y5N ONE (07:41)
[2019-08-01] MEDS: CALCIUM ACETATE 667 MG CAPSULE (FP) PO SCH ×3 (07:46→17:54)
[2019-08-01] MEDS: TAMSULOSIN HCL 0.4 MG CAP PO SCH (07:47)
--- NOTE | 2019-08-01 07:51 | PN ---
Progress Note, Physician Chief Complaint: Being treated for discitis. Lower lumbar pain persists. Scheduled for HD today History of Present Illness: Patient is a 59 year old male with PMH of ESRD (HD M/W/F), CHF, COPD (on 3L O2 during dialysis), HTN, BPH, gastric ulcer who presents with osteomyelitis/ discitis. - Current Medication List Current Medications: Active Medications Amlodipine Besylate (Norvasc -) 10 mg PO DAILY [facility] Last Admin: 07/31/19 09:14 Dose: Not Given Calcitriol (Rocaltrol -) 0.25 mcg PO DAILY [facility] Last Admin: 07/31/19 09:14 Dose: 0.25 mcg Calcium Acetate (Phoslo -) 667 mg PO TIDCM [facility] Last Admin: 08/01/19 07:46 Dose: 667 mg Carvedilol (Coreg -) 25 mg PO BID [facility] Last Admin: 07/31/19 21:47 Dose: 25 mg Diltiazem HCl (Cardizem Cd -) 240 mg PO DAILY [facility] Last Admin: 07/31/19 09:15 Dose: 240 mg Docusate Sodium (Colace -) 100 mg PO BID PRN PRN Reason: CONSTIPATION Last Admin: 07/31/19 21:47 Dose: 100 mg Furosemide (Lasix -) 40 mg PO BIDLASIX [facility] Last Admin: 08/01/19 05:57 Dose: 40 mg Heparin Sodium (Porcine) (Heparin -) 1,000 unit IVPUSH PRN PRN PRN Reason: Heparin Last Admin: 07/31/19 21:46 Dose: 1,000 unit Heparin Sodium (Porcine) (Heparin -) 5,000 unit IVPUSH PRN PRN PRN Reason: Heparin Last Admin: 08/01/19 05:30 Dose: 5,000 unit Hydralazine HCl (Apresoline -) 10 mg PO BID [facility] Last Admin: 07/31/19 21:47 Dose: 10 mg Heparin Sodium (Porcine) 25, (000 unit/ Sodium Chloride) 500 mls @ 16 mls/hr IV TITR [facility]; Protocol Last Titration: 08/01/19 05:56 Dose: 1,750 unit/hr, 35 mls/hr Piperacillin Sod/Tazobactam (Sod 2.25 gm/ Dextrose) 50 mls @ 100 mls/hr IVPB Q8H-IV [facility]; Protocol Last Admin: 08/01/19 02:03 Dose: 100 mls/hr Sodium Chloride (Normal Saline -) 250 mls @ 3,000 mls/hr IV PRN PRN PRN Reason: Hypotension during Dialysis Stop: 07/31/19 15:31 Vancomycin HCl (Vancomycin (Pre-Docked)) 1,000 mg in 250 mls @ 200 mls/hr IVPB Q24H [facility]; Protocol Last Admin: 07/31/19 11:53 Dose: 200 mls/hr Lidocaine (Lidoderm Patch -) 1 patch TP DAILY [facility] Last Admin: 07/31/19 09:13 Dose: 1 patch Miscellaneous (Lidoderm Patch Removal) 1 each MC DAILY@2200 [facility] Last Admin: 07/31/19 21:47 Dose: 1 each Oxycodone HCl (Roxicodone -) 5 mg PO Q6H PRN PRN Reason: PAIN LEVEL 7 - 10 Last Admin: 07/31/19 21:47 Dose: 5 mg Pantoprazole Sodium (Protonix -) 40 mg PO DAILY [facility] Last Admin: 07/31/19 09:14 Dose: 40 mg Tamsulosin HCl (Flomax -) 0.4 mg PO DAILY@0830 [facility] Last Admin: 08/01/19 07:47 Dose: 0.4 mg Tramadol HCl (Ultram -) 50 mg PO Q6H PRN PRN Reason: PAIN LEVEL 4 - 6 - Objective Vital Signs: Vital Signs Temperature 98.1 F 08/01/19 05:00 Pulse Rate 84 08/01/19 05:00 Respiratory Rate 18 08/01/19 05:00 Blood Pressure 133/86 08/01/19 05:00 O2 Sat by Pulse Oximetry (%) 96 07/31/19 21:00 Additional Findings/Remarks: Constitutional: Yes: Well Nourished, No Distress, Calm Eyes: Yes: WNL, Conjunctiva Clear HENT: Yes: WNL, Atraumatic, Normocephalic Neck: Yes: WNL, Supple, Trachea Midline Cardiovascular: Yes: WNL, Regular Rate and Rhythm Respiratory: Yes: WNL, Regular, CTA Bilaterally Gastrointestinal: Yes: WNL, Normal Bowel Sounds ...Rectal Exam: Yes: Deferred Genitourinary: Yes: WNL Breast(s): Yes: WNL Musculoskeletal: Yes: Back Pain, Muscle Pain (lower loumbar pain) Extremities: Yes: WNL Edema: No Peripheral Pulses WNL: Yes Peripheral Pulses: Left Radial: 2+, Right Radial: 2+, Left Doralis Pedis: 2+, Right Dorsalis Pedis: 2+, Left Femoral: 2+, Right Femoral: 2+ Integumentary: Yes: WNL Neurological: Yes: WNL, Alert, Oriented ...Motor Strength: WNL Psychiatric: Yes: WNL Labs: CBC, BMP 07/31/19 07:20 07/31/19 07:20 INR, PTT INR 1.32 (0.83-1.09) H 07/28/19 21:50 - ....Imaging Cat Scan: Pending MRI: Report Reviewed Problem List - Problems (1) Discitis of lumbar region Assessment/Plan: L12 and L5S1 discitis and instability on MRI disc degeneration changes /no paraspinal collection or clear evidence of osteomyelitis ID following c/w zosyn and vanco with HD Dr Ruiz following lumbar CT without contrast pending Code(s): M46.46 - DISCITIS, UNSPECIFIED, LUMBAR REGION (2) ESRD on hemodialysis Assessment/Plan: ESRD on HD renal following Dialyzed today HD as per schedule Code(s): N18.6 - END STAGE RENAL DISEASE; Z99.2 - DEPENDENCE ON RENAL DIALYSIS (3) BPH (benign prostatic hyperplasia) Assessment/Plan: c/w home flomax Code(s): N40.0 - BENIGN PROSTATIC HYPERPLASIA WITHOUT LOWER URINRY TRACT SYMP (4) Gastric ulcer Assessment/Plan: c/w home pantoprozole Code(s): K25.9 - GASTRIC ULCER, UNSP ACUTE OR CHRONIC, W/O HEMOR OR PERF (5) Prophylactic measure Assessment/Plan: FEN renal diet monitor electrolytes HD as per renal DVT on heparin gtt Dispo mainatin as in patient full code discharge planning Code(s): Z29.9 - ENCOUNTER FOR PROPHYLACTIC MEASURES, UNSPECIFIED (6) CHF (congestive heart failure) Assessment/Plan: chronic diastolic CKF appears euvolemic c/w lasix c/w HD TTE pending Code(s): I50.9 - HEART FAILURE, UNSPECIFIED Qualifiers: Heart failure chronicity: chronic (7) COPD (chronic obstructive pulmonary disease) Code(s): J44.9 - CHRONIC OBSTRUCTIVE PULMONARY DISEASE, UNSPECIFIED (8) ESRD (end stage renal disease) Assessment/Plan: HD as per renal Code(s): N18.6 - END STAGE RENAL DISEASE (9) HTN (hypertension) Assessment/Plan: normotensive c/w hydralazine, norvasc Code(s): I10 - ESSENTIAL (PRIMARY) HYPERTENSION (10) Hyperlipidemia Assessment/Plan: diet controlled Code(s): E78.5 - HYPERLIPIDEMIA, UNSPECIFIED Qualifiers: Hyperlipidemia type: pure hypercholesterolemia Qualified Code(s): E78.00 - Pure hypercholesterolemia, unspecified; E78.0 - Pure hypercholesterolemia (11) Low back pain Assessment/Plan: tramadol/roxicodone for pain lidoderm patch Code(s): M54.5 - LOW BACK PAIN Qualifiers: Chronicity: acute Back pain laterality: unspecified Sciatica presence: without sciatica Qualified Code(s): M54.5 - Low back pain (12) Atrial flutter Assessment/Plan: rate improved now c/w coreg c/w tele can up-titrate Cardizem for improved rate control hep gtt for now can re-start eliquis 5 bid if no surgical intervention planned Code(s): I48.92 - UNSPECIFIED ATRIAL FLUTTER Qualifiers: Atrial flutter type: unspecified Qualified Code(s): I48.92 - Unspecified atrial flutter (13) Gram-positive cocci bacteremia Assessment/Plan: GPC growing in one set og BC repeat BL c/w abx ID following Code(s): R78.81 - BACTEREMIA (14) NSVT (nonsustained ventricular tachycardia) Assessment/Plan: brief run on tele noted EF preserved 10/27 cardiology following repeat TTE ordered if no change from previous can dc tele Code(s): I47.2 - VENTRICULAR TACHYCARDIA Visit type - Emergency Visit Emergency Visit: Yes ED Registration Date: 07/28/19 Care time: The patient presented to the Emergency Department on the above date and was hospitalized for further evaluation of their emergent condition. - New Patient This patient is new to me today: No - Critical Care Critical Care patient: No - Discharge Referral Referred to [facility] Med P.C.: No
--- NOTE | 2019-08-01 09:00 | PN ---
Progress Note, Physician Chief Complaint: back pain History of Present Illness: denies sob, orthopnea, cp/tightness no palpit, leg swelling - Current Medication List Current Medications: Active Medications Amlodipine Besylate (Norvasc -) 10 mg PO DAILY [facility] Last Admin: 07/31/19 09:14 Dose: Not Given Calcitriol (Rocaltrol -) 0.25 mcg PO DAILY [facility] Last Admin: 07/31/19 09:14 Dose: 0.25 mcg Calcium Acetate (Phoslo -) 667 mg PO TIDCM [facility] Last Admin: 08/01/19 07:46 Dose: 667 mg Carvedilol (Coreg -) 25 mg PO BID [facility] Last Admin: 07/31/19 21:47 Dose: 25 mg Diltiazem HCl (Cardizem Cd -) 240 mg PO DAILY [facility] Last Admin: 07/31/19 09:15 Dose: 240 mg Docusate Sodium (Colace -) 100 mg PO BID PRN PRN Reason: CONSTIPATION Last Admin: 07/31/19 21:47 Dose: 100 mg Furosemide (Lasix -) 40 mg PO BIDLASIX [facility] Last Admin: 08/01/19 05:57 Dose: 40 mg Heparin Sodium (Porcine) (Heparin -) 1,000 unit IVPUSH PRN PRN PRN Reason: Heparin Last Admin: 07/31/19 21:46 Dose: 1,000 unit Heparin Sodium (Porcine) (Heparin -) 5,000 unit IVPUSH PRN PRN PRN Reason: Heparin Last Admin: 08/01/19 05:30 Dose: 5,000 unit Hydralazine HCl (Apresoline -) 10 mg PO BID [facility] Last Admin: 07/31/19 21:47 Dose: 10 mg Heparin Sodium (Porcine) 25, (000 unit/ Sodium Chloride) 500 mls @ 16 mls/hr IV TITR [facility]; Protocol Last Titration: 08/01/19 05:56 Dose: 1,750 unit/hr, 35 mls/hr Piperacillin Sod/Tazobactam (Sod 2.25 gm/ Dextrose) 50 mls @ 100 mls/hr IVPB Q8H-IV [facility]; Protocol Last Admin: 08/01/19 02:03 Dose: 100 mls/hr Sodium Chloride (Normal Saline -) 250 mls @ 3,000 mls/hr IV PRN PRN PRN Reason: Hypotension during Dialysis Stop: 07/31/19 15:31 Vancomycin HCl (Vancomycin (Pre-Docked)) 1,000 mg in 250 mls @ 200 mls/hr IVPB Q24H [facility]; Protocol Last Admin: 07/31/19 11:53 Dose: 200 mls/hr Lidocaine (Lidoderm Patch -) 1 patch TP DAILY [facility] Last Admin: 07/31/19 09:13 Dose: 1 patch Miscellaneous (Lidoderm Patch Removal) 1 each MC DAILY@2200 [facility] Last Admin: 07/31/19 21:47 Dose: 1 each Oxycodone HCl (Roxicodone -) 5 mg PO Q6H PRN PRN Reason: PAIN LEVEL 7 - 10 Last Admin: 07/31/19 21:47 Dose: 5 mg Pantoprazole Sodium (Protonix -) 40 mg PO DAILY [facility] Last Admin: 07/31/19 09:14 Dose: 40 mg Tamsulosin HCl (Flomax -) 0.4 mg PO DAILY@0830 [facility] Last Admin: 08/01/19 07:47 Dose: 0.4 mg Tramadol HCl (Ultram -) 50 mg PO Q6H PRN PRN Reason: PAIN LEVEL 4 - 6 - Objective Vital Signs: Vital Signs Temperature 98.1 F 08/01/19 05:00 Pulse Rate 84 08/01/19 05:00 Respiratory Rate 18 08/01/19 05:00 Blood Pressure 133/86 08/01/19 05:00 O2 Sat by Pulse Oximetry (%) 96 07/31/19 21:00 Constitutional: Yes: Well Nourished, No Distress, Calm Cardiovascular: Yes: Regular Rate and Rhythm, S1, S2. No: Gallop, Murmur Respiratory: Yes: Regular, CTA Bilaterally. No: Accessory Muscle Use Extremities: No: Cold Edema: No Neurological: Yes: Alert, Oriented Psychiatric: No: Agitated Labs: CBC, BMP 07/31/19 07:20 07/31/19 07:20 INR, PTT INR 1.32 (0.83-1.09) H 07/28/19 21:50 Assessment/Plan echo 10/2018 nl LV/RV function, mild MR, mild TR, mild AR, mild dilation of ao root mibi 08/2017 nl EF, no ischemia EKG: aflutter, rate controlled, no ischemic changes CXR: no congestion tele: AF/flutter hr's controlled (60s-100s). no VT A/P: 59M h/o EtOH abuse, CHF, HTN, CKD, COPD, aflutter, esrd on hd here with back pain. aflutter: -rate controlled: cont carvedilol, diltiazem -chadsvasc warrants ac. would start eliquis 5 bid but given possible septic discitis/spine osteo he may need procedure so would continue hep gtt for now. chronic diastolic chf: -appears volume-up with JVD and orthopnea relieved by NC oxygen. wt stable -well-compensated at present--lasix and UF volume removal per renal (limited by muscle cramping per pt) back pain: -being evaluated by ID, spine/neurosurgery--no infectious etiology documented at present, no intervention currently planned NSVT: -brief run. -EF preserved 10/27--will rpt echo to confirm no change given mult rf's for systolic dysfunction -lytes stable--routine repletion levels -no further episodes. if EF normal on rpt echo here, can d/c telemetry copd: -no current sx's esrd: -hd per renal HTN: - controlled - cont current meds HLD: - cont statin
[2019-08-01 09:20] LABS: BASO % 0.6 % (0-2.0); EOS % 5.1 % (0-4.5); HEMATOCRIT 29.8 % (35.4-49); HEMOGLOBIN 9.7 GM/dL (11.7-16.9); LYMPH % 17.4 % (8-40); MCH 30.5 pg (25.7-33.7); MCHC 32.5 g/dl (32.0-35.9); MEAN CELL VOLUME 93.7 fl (80-96); MEAN PLT VOLUME 8.4 fl (7.5-11.1); MONO % 9.6 % (3.8-10.2); NEUT % 67.3 % (42.8-82.8); PLATELET COUNT 233 K/MM3 (134-434); RBC 3.18 M/mm3 (4.00-5.60); RDW 17.2 % (11.9-15.9)
[2019-08-01 10:00] LABS: ALBUMIN 2.7 g/dl (3.4-5.0); BILIRUBIN,TOTAL 0.4 mg/dL (0.2-1); BLOOD UREA NITROGEN 33.2 mg/dL (7-18); CALCIUM 9.4 mg/dL (8.5-10.1); POTASSIUM 3.8 mmol/L (3.5-5.1)
[2019-08-01] MEDS: amLODIPine BESYLATE 10 MG TABLET (FP) PO SCH (13:29)
[2019-08-01] MEDS: PANTOPRAZOLE 40 MG TABLET (FP) PO SCH (13:38)
[2019-08-01] MEDS: oxyCODONE HCL 5 MG TABLET PO PRN (13:38)
[2019-08-01] MEDS: LIDOCAINE 5% TOPICAL PATCH TP SCH (13:40)
[2019-08-01] MEDS: DOCUSATE SODIUM 100 MG CAPSULE (FP) PO PRN ×2 (13:40→23:07)
[2019-08-01] MEDS: CARVEDILOL 25 MG TABLET (FP) PO SCH ×2 (13:40→23:07)
[2019-08-01] MEDS: CALCITRIOL 0.25 MCG CAPSULE (FP) PO SCH (13:40)
[2019-08-01] MEDS: hydrALAZINE HCL 10 MG TABLET PO SCH ×2 (13:40→23:07)
[2019-08-01] MEDS: HEPARIN - 25,000 UNIT in SODIUM CHLORIDE 495 ML IV SCH (13:41)
[2019-08-01] MEDS: VANCOMYCIN 1 GRAM (PRE-DOCKED) 1,000 MG/250 ML BAG IVPB SCH (13:44)
--- NOTE | 2019-08-01 19:29 | PN ---
Progress Note, Physician History of Present Illness: Pt is alert, afebrile. Still has "pinching" lower back pain especially with movement. Lumbar CT done. Results are pending. - Current Medication List Current Medications: Active Medications Amlodipine Besylate (Norvasc -) 10 mg PO DAILY [facility] Last Admin: 08/01/19 13:29 Dose: Not Given Calcitriol (Rocaltrol -) 0.25 mcg PO DAILY [facility] Last Admin: 08/01/19 13:40 Dose: 0.25 mcg Calcium Acetate (Phoslo -) 667 mg PO TIDCM [facility] Last Admin: 08/01/19 17:54 Dose: 667 mg Carvedilol (Coreg -) 25 mg PO BID [facility] Last Admin: 08/01/19 13:40 Dose: 25 mg Diltiazem HCl (Cardizem Cd -) 240 mg PO DAILY [facility] Last Admin: 08/01/19 13:40 Dose: 240 mg Docusate Sodium (Colace -) 100 mg PO BID PRN PRN Reason: CONSTIPATION Last Admin: 08/01/19 13:40 Dose: 100 mg Furosemide (Lasix -) 40 mg PO BIDLASIX [facility] Last Admin: 08/01/19 16:08 Dose: Not Given Heparin Sodium (Porcine) (Heparin -) 1,000 unit IVPUSH PRN PRN PRN Reason: Heparin Last Admin: 08/01/19 18:42 Dose: 1,000 unit Heparin Sodium (Porcine) (Heparin -) 5,000 unit IVPUSH PRN PRN PRN Reason: Heparin Last Admin: 08/01/19 05:30 Dose: 5,000 unit Hydralazine HCl (Apresoline -) 10 mg PO BID [facility] Last Admin: 08/01/19 13:40 Dose: 10 mg Heparin Sodium (Porcine) 25, (000 unit/ Sodium Chloride) 500 mls @ 16 mls/hr IV TITR [facility]; Protocol Last Titration: 08/01/19 18:40 Dose: 1,800 unit/hr, 36 mls/hr Piperacillin Sod/Tazobactam (Sod 2.25 gm/ Dextrose) 50 mls @ 100 mls/hr IVPB Q8H-IV [facility]; Protocol Last Admin: 08/01/19 17:55 Dose: 100 mls/hr Sodium Chloride (Normal Saline -) 250 mls @ 3,000 mls/hr IV PRN PRN PRN Reason: Hypotension during Dialysis Stop: 07/31/19 15:31 Vancomycin HCl (Vancomycin (Pre-Docked)) 1,000 mg in 250 mls @ 200 mls/hr IVPB Q24H [facility]; Protocol Last Admin: 08/01/19 13:44 Dose: 200 mls/hr Lidocaine (Lidoderm Patch -) 1 patch TP DAILY [facility] Last Admin: 08/01/19 13:40 Dose: 1 patch Miscellaneous (Lidoderm Patch Removal) 1 each MC DAILY@2200 [facility] Last Admin: 07/31/19 21:47 Dose: 1 each Oxycodone HCl (Roxicodone -) 5 mg PO Q6H PRN PRN Reason: PAIN LEVEL 7 - 10 Last Admin: 08/01/19 13:38 Dose: 5 mg Pantoprazole Sodium (Protonix -) 40 mg PO DAILY [facility] Last Admin: 08/01/19 13:38 Dose: 40 mg Tamsulosin HCl (Flomax -) 0.4 mg PO DAILY@0830 [facility] Last Admin: 08/01/19 07:47 Dose: 0.4 mg Tramadol HCl (Ultram -) 50 mg PO Q6H PRN PRN Reason: PAIN LEVEL 4 - 6 - Objective Vital Signs: Vital Signs Temperature 98.1 F 08/01/19 17:00 Pulse Rate 91 H 08/01/19 17:00 Respiratory Rate 20 08/01/19 17:00 Blood Pressure 117/66 08/01/19 17:00 O2 Sat by Pulse Oximetry (%) 95 08/01/19 09:00 Constitutional: Yes: No Distress, Calm Cardiovascular: Yes: Regular Rate and Rhythm Respiratory: Yes: CTA Bilaterally Gastrointestinal: Yes: Normal Bowel Sounds, Soft Musculoskeletal: Yes: WNL (Lower spine/sacral pain), Back Pain Extremities: Yes: WNL Integumentary: Yes: WNL Neurological: Yes: Alert, Oriented Labs: CBC, BMP 08/01/19 08:50 08/01/19 08:50 INR, PTT INR 1.32 (0.83-1.09) H 07/28/19 21:50 Microbiology 07/31/19 13:45 Blood - Peripheral Venous Blood Culture - Preliminary NO GROWTH OBTAINED AFTER 24 HOURS, INCUBATION TO CONTINUE FOR 4 DAYS. 07/31/19 13:40 Blood - Peripheral Venous Blood Culture - Preliminary NO GROWTH OBTAINED AFTER 24 HOURS, INCUBATION TO CONTINUE FOR 4 DAYS. 07/28/19 21:50 Blood - Peripheral Venous Blood Culture - Final Micrococcus & Related Species 07/28/19 21:50 Blood - Peripheral Venous Blood Culture - Preliminary NO GROWTH OBTAINED AFTER 72 HOURS, INCUBATION TO CONTINUE FOR 2 DAYS. - ....Imaging Cat Scan: Pending MRI: Report Reviewed Problem List - Problems (1) Atrial flutter Code(s): I48.92 - UNSPECIFIED ATRIAL FLUTTER Qualifiers: Atrial flutter type: unspecified Qualified Code(s): I48.92 - Unspecified atrial flutter (2) BPH (benign prostatic hyperplasia) Code(s): N40.0 - BENIGN PROSTATIC HYPERPLASIA WITHOUT LOWER URINRY TRACT SYMP (3) Discitis of lumbar region Code(s): M46.46 - DISCITIS, UNSPECIFIED, LUMBAR REGION (4) ESRD on hemodialysis Code(s): N18.6 - END STAGE RENAL DISEASE; Z99.2 - DEPENDENCE ON RENAL DIALYSIS (5) Gram-positive cocci bacteremia Code(s): R78.81 - BACTEREMIA (6) Low back pain Code(s): M54.5 - LOW BACK PAIN Qualifiers: Chronicity: acute Back pain laterality: unspecified Sciatica presence: without sciatica Qualified Code(s): M54.5 - Low back pain (7) CHF (congestive heart failure) Code(s): I50.9 - HEART FAILURE, UNSPECIFIED Qualifiers: Heart failure chronicity: chronic (8) HTN (hypertension) Code(s): I10 - ESSENTIAL (PRIMARY) HYPERTENSION (9) Hyperlipidemia Code(s): E78.5 - HYPERLIPIDEMIA, UNSPECIFIED Qualifiers: Hyperlipidemia type: pure hypercholesterolemia Qualified Code(s): E78.00 - Pure hypercholesterolemia, unspecified; E78.0 - Pure hypercholesterolemia Assessment/Plan Low back pain/ Discitis r/o OM ESRD on HD HTN HLD -- blood culture results noted: +micrococcus sp. in 1 bottle (possibly pathogenic, pt is immunocompromised), repeat blood cultures neg. 24hr -- Vancomycin level noted, will repeat level in am. Dose post HD. -- continue current antibiotics -- follow up Lumbar CT results (MRI results from 07/25/19 indicates likely L5- S1 septic discitis/OM) -- Pt is afebrile, alert, without distress
--- NOTE | 2019-08-01 21:00 | PN ---
Progress Note (short form) - Note Progress Note: 1. ESRD 2. a-flutter 3. diskitis/osteomyelitis L5/S1 4. htn 5. hld Current Medications Amlodipine Besylate (Norvasc -) 10 mg PO DAILY [facility] Last Admin: 08/01/19 13:29 Dose: Not Given Calcitriol (Rocaltrol -) 0.25 mcg PO DAILY [facility] Last Admin: 08/01/19 13:40 Dose: 0.25 mcg Calcium Acetate (Phoslo -) 667 mg PO TIDCM [facility] Last Admin: 08/01/19 17:54 Dose: 667 mg Carvedilol (Coreg -) 25 mg PO BID [facility] Last Admin: 08/01/19 13:40 Dose: 25 mg Diltiazem HCl (Cardizem Cd -) 240 mg PO DAILY [facility] Last Admin: 08/01/19 13:40 Dose: 240 mg Docusate Sodium (Colace -) 100 mg PO BID PRN PRN Reason: CONSTIPATION Last Admin: 08/01/19 13:40 Dose: 100 mg Furosemide (Lasix -) 40 mg PO BIDLASIX [facility] Last Admin: 08/01/19 16:08 Dose: Not Given Heparin Sodium (Porcine) (Heparin -) 1,000 unit IVPUSH PRN PRN PRN Reason: Heparin Last Admin: 08/01/19 18:42 Dose: 1,000 unit Heparin Sodium (Porcine) (Heparin -) 5,000 unit IVPUSH PRN PRN PRN Reason: Heparin Last Admin: 08/01/19 05:30 Dose: 5,000 unit Hydralazine HCl (Apresoline -) 10 mg PO BID [facility] Last Admin: 08/01/19 13:40 Dose: 10 mg Heparin Sodium (Porcine) 25, (000 unit/ Sodium Chloride) 500 mls @ 16 mls/hr IV TITR [facility]; Protocol Last Titration: 08/01/19 18:40 Dose: 1,800 unit/hr, 36 mls/hr Piperacillin Sod/Tazobactam (Sod 2.25 gm/ Dextrose) 50 mls @ 100 mls/hr IVPB Q8H-IV [facility]; Protocol Last Admin: 08/01/19 17:55 Dose: 100 mls/hr Sodium Chloride (Normal Saline -) 250 mls @ 3,000 mls/hr IV PRN PRN PRN Reason: Hypotension during Dialysis Stop: 07/31/19 15:31 Vancomycin HCl (Vancomycin (Pre-Docked)) 1,000 mg in 250 mls @ 200 mls/hr IVPB Q24H [facility]; Protocol Last Admin: 08/01/19 13:44 Dose: 200 mls/hr Lidocaine (Lidoderm Patch -) 1 patch TP DAILY [facility] Last Admin: 08/01/19 13:40 Dose: 1 patch Miscellaneous (Lidoderm Patch Removal) 1 each MC DAILY@2200 [facility] Last Admin: 07/31/19 21:47 Dose: 1 each Oxycodone HCl (Roxicodone -) 5 mg PO Q6H PRN PRN Reason: PAIN LEVEL 7 - 10 Last Admin: 08/01/19 13:38 Dose: 5 mg Pantoprazole Sodium (Protonix -) 40 mg PO DAILY [facility] Last Admin: 08/01/19 13:38 Dose: 40 mg Tamsulosin HCl (Flomax -) 0.4 mg PO DAILY@0830 [facility] Last Admin: 08/01/19 07:47 Dose: 0.4 mg Tramadol HCl (Ultram -) 50 mg PO Q6H PRN PRN Reason: PAIN LEVEL 4 - 6 Last Vital Signs Temp Pulse Resp BP Pulse Ox 98.1 F 91 H 20 117/66 95 08/01/19 17:00 08/01/19 17:00 08/01/19 17:00 08/01/19 17:00 08/01/19 09:00 Lungs clear Heart reg Abd soft nontender CBC, BMP 08/01/19 08:50 08/01/19 08:50 Vanco level 20 ESRD s/p uneventful DH today follow Vanco level before next dose is given a level 0f 15 is target
[2019-08-01] MEDS: LIDOCAINE PATCH REMOVAL MC SCH (23:10)
[2019-08-02] MEDS ORDERED: PIPERACILLIN/TAZOBACTAM 2.25 GM VIAL IVPB ONE ×3 (02:36→16:52)
[2019-08-02] MEDS: HEPARIN NA (PORCINE) 5,000 UNITS/ML 1ML VIAL IVPUSH PRN ×2 (02:36→02:40)
[2019-08-02] MEDS ORDERED: DEXTROSE 5%-WATER - 50 ML IVPB ONE ×3 (02:37→16:52)
[2019-08-02] MEDS: PIPERACILLIN/TAZOB 2.25 GM 2.25 GM in DEXTROSE 5%-WATER - 50 ML IVPB SCH ×3 (02:40→17:05)
[2019-08-02 06:40] LABS: BASO % 0.7 % (0-2.0); EOS % 4.3 % (0-4.5); HEMATOCRIT 29.3 % (35.4-49); HEMOGLOBIN 9.6 GM/dL (11.7-16.9); LYMPH % 21.5 % (8-40); MCHC 32.9 g/dl (32.0-35.9); MEAN CELL VOLUME 94.3 fl (80-96); MEAN PLT VOLUME 8.5 fl (7.5-11.1); MONO % 8.8 % (3.8-10.2); NEUT % 64.7 % (42.8-82.8); PLATELET COUNT 228 K/MM3 (134-434); RBC 3.11 M/mm3 (4.00-5.60); RDW 17.4 % (11.9-15.9)
[2019-08-02] MEDS: FUROSEMIDE 40 MG TABLET (FP) PO SCH ×2 (06:46→14:21)
[2019-08-02 07:43] LABS: ALBUMIN 2.7 g/dl (3.4-5.0); BILIRUBIN,TOTAL 0.5 mg/dL (0.2-1); BLOOD UREA NITROGEN 21.5 mg/dL (7-18); CALCIUM 9.6 mg/dL (8.5-10.1); CREATININE 6.8 mg/dL (0.55-1.3); MAGNESIUM 2.1 mg/dL (1.8-2.4); POTASSIUM 3.9 mmol/L (3.5-5.1)
--- NOTE | 2019-08-02 09:18 | PN ---
Progress Note, Physician Chief Complaint: back pain, afib History of Present Illness: hip hurting. no sob, orthopnea (no O2 in). no cp no leg swelling - Current Medication List Current Medications: Active Medications Amlodipine Besylate (Norvasc -) 10 mg PO DAILY [facility] Last Admin: 08/01/19 13:29 Dose: Not Given Calcitriol (Rocaltrol -) 0.25 mcg PO DAILY [facility] Last Admin: 08/01/19 13:40 Dose: 0.25 mcg Calcium Acetate (Phoslo -) 667 mg PO TIDCM [facility] Last Admin: 08/01/19 17:54 Dose: 667 mg Carvedilol (Coreg -) 25 mg PO BID [facility] Last Admin: 08/01/19 23:07 Dose: 25 mg Diltiazem HCl (Cardizem Cd -) 240 mg PO DAILY [facility] Last Admin: 08/01/19 13:40 Dose: 240 mg Docusate Sodium (Colace -) 100 mg PO BID PRN PRN Reason: CONSTIPATION Last Admin: 08/01/19 23:07 Dose: 100 mg Furosemide (Lasix -) 40 mg PO BIDLASIX [facility] Last Admin: 08/02/19 06:46 Dose: 40 mg Heparin Sodium (Porcine) (Heparin -) 1,000 unit IVPUSH PRN PRN PRN Reason: Heparin Last Admin: 08/01/19 18:42 Dose: 1,000 unit Heparin Sodium (Porcine) (Heparin -) 5,000 unit IVPUSH PRN PRN PRN Reason: Heparin Last Admin: 08/02/19 02:40 Dose: 5,000 unit Hydralazine HCl (Apresoline -) 10 mg PO BID [facility] Last Admin: 08/01/19 23:07 Dose: 10 mg Heparin Sodium (Porcine) 25, (000 unit/ Sodium Chloride) 500 mls @ 16 mls/hr IV TITR [facility]; Protocol Last Titration: 08/02/19 06:57 Dose: 1,850 unit/hr, 37 mls/hr Piperacillin Sod/Tazobactam (Sod 2.25 gm/ Dextrose) 50 mls @ 100 mls/hr IVPB Q8H-IV [facility]; Protocol Last Admin: 08/02/19 02:40 Dose: 100 mls/hr Sodium Chloride (Normal Saline -) 250 mls @ 3,000 mls/hr IV PRN PRN PRN Reason: Hypotension during Dialysis Stop: 07/31/19 15:31 Vancomycin HCl (Vancomycin (Pre-Docked)) 1,000 mg in 250 mls @ 166.667 mls/hr IVPB MoWeFr@1200 [facility] Lidocaine (Lidoderm Patch -) 1 patch TP DAILY [facility] Last Admin: 08/01/19 13:40 Dose: 1 patch Miscellaneous (Lidoderm Patch Removal) 1 each MC DAILY@2200 [facility] Last Admin: 08/01/19 23:10 Dose: 1 each Oxycodone HCl (Roxicodone -) 5 mg PO Q6H PRN PRN Reason: PAIN LEVEL 7 - 10 Last Admin: 08/01/19 13:38 Dose: 5 mg Pantoprazole Sodium (Protonix -) 40 mg PO DAILY [facility] Last Admin: 08/01/19 13:38 Dose: 40 mg Tamsulosin HCl (Flomax -) 0.4 mg PO DAILY@0830 [facility] Last Admin: 08/01/19 07:47 Dose: 0.4 mg Tramadol HCl (Ultram -) 50 mg PO Q6H PRN PRN Reason: PAIN LEVEL 4 - 6 - Objective Vital Signs: Vital Signs Temperature 97.8 F 08/02/19 06:00 Pulse Rate 67 08/02/19 06:00 Respiratory Rate 20 08/02/19 06:00 Blood Pressure 120/72 08/02/19 06:00 O2 Sat by Pulse Oximetry (%) 95 08/01/19 21:00 Constitutional: Yes: Well Nourished, No Distress, Calm Cardiovascular: Yes: Pulse Irregular, S1, S2. No: Gallop, Murmur Respiratory: Yes: Regular, CTA Bilaterally. No: Accessory Muscle Use, Rales, Wheezes Extremities: No: Cold Edema: No Neurological: Yes: Alert, Oriented Psychiatric: No: Agitated Labs: CBC, BMP 08/02/19 05:40 08/02/19 05:40 INR, PTT INR 1.32 (0.83-1.09) H 07/28/19 21:50 Assessment/Plan echo 10/2018 nl LV/RV function, mild MR, mild TR, mild AR, mild dilation of ao root mibi 08/2017 nl EF, no ischemia EKG: aflutter, rate controlled, no ischemic changes CXR: no congestion tele: AF/flutter hr's controlled A/P: 59M h/o EtOH abuse, CHF, HTN, CKD, COPD, aflutter, esrd on hd here with back pain. aflutter: -rate controlled: cont carvedilol, diltiazem -chadsvasc warrants ac. plan to start eliquis 5 bid but given possible septic discitis/spine osteo he may need procedure so would continue hep gtt for now. chronic diastolic chf: -was mildly volume-up here with JVD and orthopnea relieved by NC oxygen. wt stable -well-compensated at present, no more sx's--lasix and UF volume removal per renal (limited by muscle cramping per pt) back pain: -being evaluated by ID, spine/neurosurgery--no infectious etiology documented at present, no intervention currently planned NSVT: -brief run. -EF preserved 10/27--will rpt echo to confirm no change given mult rf's for systolic dysfunction -lytes stable--routine repletion levels -no further episodes. if EF normal on rpt echo here, can d/c telemetry copd: -no current sx's esrd: -hd per renal HTN: - controlled - cont current meds HLD: - cont statin
--- NOTE | 2019-08-02 09:21 | PN ---
Physical Exam: SUBJECTIVE: Patient seen and examined at the bedside. states pain is not improved still 9/10, better with laying still. denies any constipation reports smoking cigarettes on and off had etoh abuse in past, not recent hx of gastric ulcers OBJECTIVE: Patient is a 59 year old male with PMH of ESRD (HD M/W/), CHF, COPD (on 3L O2 during dialysis), HTN, BPH, gastric ulcer who presents with osteomyelitis/ discitis. Last week at f/u appt, pt received a lumbar MRI. He was called with results of MRI suggesting discitis/osteomyelitis in L5 and S1 and told to come to ED to receive IV abx and see Dr. Louis. Patient is also being evaluated for possible spine surgery with Dr. Soriano. lumbar spine Ct pending official read. will increase pain meds -pain not controlled incentive spirometer on protonix/has hx of gastric ulcers heat/back may help also physical therapy bowel regimen: miralax and colace scheduled --- aptt 98 echo pending tele: nsr Vital Signs Period Temp Pulse Resp BP Sys/Cannon Pulse Ox Last 24 Hr 97.8 F-99 F 67-105 18-20 94-149/52-100 95 GENERAL: The patient is awake, alert, and fully oriented, in no acute distress. HEAD: Normal with no signs of trauma. EYES: PERRL, extraocular movements intact, sclera anicteric, conjunctiva clear. No ptosis. ENT: Ears normal, nares patent, oropharynx clear without exudates, moist mucous membranes. NECK: Trachea midline, full range of motion, supple. LUNGS: diminished bilaterally, incentive spirometer encourated HEART: nsr on ekg monitor tech ABDOMEN: Soft, nontender, nondistended EXTREMITIES: no edema. left upper arm +bruit and thrill NEUROLOGICAL: Normal speech, gait not observed. PSYCH: Normal mood, normal affect. SKIN: Warm, dry, normal turgor, no rashes or lesions noted Laboratory Results - last 24 hr 08/01/19 08/01/19 08/01/19 08:50 08:50 08:50 WBC 5.0 RBC 3.18 L Hgb 9.7 L Hct 29.8 L MCV 93.7 MCH 30.5 MCHC 32.5 RDW 17.2 H Plt Count 233 MPV 8.4 Absolute Neuts (auto) 3.4 Neutrophils % 67.3 Lymphocytes % 17.4 Monocytes % 9.6 Eosinophils % 5.1 H Basophils % 0.6 Nucleated RBC % 0 PTT (Actin FS) 79.7 H Sodium Potassium Chloride Carbon Dioxide Anion Gap BUN Creatinine Est GFR (CKD-EPI)AfAm Est GFR (CKD-EPI)NonAf Random Glucose Calcium Magnesium Total Bilirubin AST ALT Alkaline Phosphatase Total Protein Albumin Random Vancomycin 20.8 08/01/19 08/01/19 08/02/19 08:50 18:00 01:00 WBC RBC Hgb Hct MCV MCH MCHC RDW Plt Count MPV Absolute Neuts (auto) Neutrophils % Lymphocytes % Monocytes % Eosinophils % Basophils % Nucleated RBC % PTT (Actin FS) 42.7 H 32.6 Sodium 136 Potassium 3.8 Chloride 100 Carbon Dioxide 28 Anion Gap 8 BUN 33.2 H Creatinine 9.0 H* Est GFR (CKD-EPI)AfAm 6.63 Est GFR (CKD-EPI)NonAf 5.72 Random Glucose 111 H Calcium 9.4 Magnesium 2.0 Total Bilirubin 0.4 AST 3 L ALT 9 L Alkaline Phosphatase 77 Total Protein 7.0 Albumin 2.7 L Random Vancomycin 08/02/19 08/02/19 08/02/19 05:40 05:40 05:40 WBC 5.0 RBC 3.11 L Hgb 9.6 L Hct 29.3 L MCV 94.3 MCH 31.0 MCHC 32.9 RDW 17.4 H Plt Count 228 MPV 8.5 Absolute Neuts (auto) 3.3 Neutrophils % 64.7 Lymphocytes % 21.5 D Monocytes % 8.8 Eosinophils % 4.3 Basophils % 0.7 Nucleated RBC % 0 PTT (Actin FS) 98.1 H Sodium Potassium Chloride Carbon Dioxide Anion Gap BUN Creatinine Est GFR (CKD-EPI)AfAm Est GFR (CKD-EPI)NonAf Random Glucose Calcium Magnesium Total Bilirubin AST ALT Alkaline Phosphatase Total Protein Albumin Random Vancomycin 28.4 H 08/02/19 05:40 WBC RBC Hgb Hct MCV MCH MCHC RDW Plt Count MPV Absolute Neuts (auto) Neutrophils % Lymphocytes % Monocytes % Eosinophils % Basophils % Nucleated RBC % PTT (Actin FS) Sodium 141 Potassium 3.9 Chloride 101 Carbon Dioxide 31 Anion Gap 9 BUN 21.5 H Creatinine 6.8 H Est GFR (CKD-EPI)AfAm 9.30 Est GFR (CKD-EPI)NonAf 8.02 Random Glucose 84 Calcium 9.6 Magnesium 2.1 Total Bilirubin 0.5 AST 7 L ALT 10 L Alkaline Phosphatase 76 Total Protein 7.0 Albumin 2.7 L Random Vancomycin Active Medications Generic Name Dose Route Start Last Admin Trade Name Freq PRN Reason Stop Dose Admin Amlodipine Besylate 10 mg 07/29/19 10:00 08/01/19 13:29 Norvasc - PO Not Given DAILY WANDA Calcitriol 0.25 mcg 07/29/19 10:00 08/01/19 13:40 Rocaltrol - PO 0.25 mcg DAILY [facility] Administration Calcium Acetate 667 mg 07/29/19 08:00 08/01/19 17:54 Phoslo - PO 667 mg TIDCM WANDA Administration Carvedilol 25 mg 07/29/19 10:00 08/01/19 23:07 Coreg - PO 25 mg BID [facility]ANDA Administration Diltiazem HCl 240 mg 07/30/19 10:00 08/01/19 13:40 Cardizem Cd - PO 240 mg DAILY [facility] Administration Docusate Sodium 100 mg 08/02/19 10:00 Colace - PO BID WANDA Furosemide 40 mg 07/29/19 06:00 08/02/19 06:46 Lasix - PO 40 mg BIDLASIX [facility]ANDA Administration Heparin Sodium (Porcine) 1,000 unit 07/29/19 11:40 08/01/19 18:42 Heparin - IVPUSH 1,000 unit PRN PRN Administration Heparin Heparin Sodium (Porcine) 5,000 unit 07/29/19 11:40 08/02/19 02:40 Heparin - IVPUSH 5,000 unit PRN PRN Administration Heparin Hydralazine HCl 10 mg 07/29/19 10:00 08/01/19 23:07 Apresoline - PO 10 mg BID [facility]AN[facility] Administration Heparin Sodium (Porcine) 25, 500 mls @ 16 mls/hr 07/29/19 11:45 08/02/19 06: 57 000 unit/ Sodium Chloride IV 1,850 unit/hr TITR WANDA 37 mls/hr Titration Protocol 800 UNIT/HR Piperacillin Sod/Tazobactam 50 mls @ 100 mls/hr 07/29/19 18:00 08/02/19 02:40 Sod 2.25 gm/ Dextrose IVPB 100 mls/hr Q8H-IV [facility] Administration Protocol Sodium Chloride 250 mls @ 3,000 mls/hr 07/30/19 15:31 Normal Saline - IV 07/31/19 15:31 PRN PRN Hypotension during Dialysis Vancomycin HCl 1,000 mg in 250 mls @ 166.667 mls/hr 08/02/19 12:00 Vancomycin (Pre-Docked) IVPB MoWeFr@1200 [facility] Lidocaine 1 patch 07/30/19 10:00 08/01/19 13:40 Lidoderm Patch - TP 1 patch DAILY [facility] Administration Miscellaneous 1 each 07/30/19 22:00 08/01/19 23:10 Lidoderm Patch Removal MC 1 each DAILY@2200 [facility] Administration Oxycodone HCl 5 mg 07/30/19 09:21 08/01/19 13:38 Roxicodone - PO 5 mg Q6H PRN Administration PAIN LEVEL 7 - 10 Pantoprazole Sodium 40 mg 07/30/19 10:00 08/01/19 13:38 Protonix - PO 40 mg DAILY [facility] Administration Polyethylene Glycol 17 gm 08/02/19 10:00 Miralax (For Daily Use) - PO DAILY [facility] Tamsulosin HCl 0.4 mg 07/29/19 08:30 08/01/19 07:47 Flomax - PO 0.4 mg DAILY@0830 [facility] Administration Tramadol HCl 50 mg 07/30/19 09:20 Ultram - PO Q6H PRN PAIN LEVEL 4 - 6 ASSESSMENT/PLAN: Problem List - Problems (1) Discitis of lumbar region Assessment/Plan: L12 and L5S1 discitis and instability on MRI disc degeneration changes /no paraspinal collection or clear evidence of osteomyelitis per neuro note ID following c/w laura with HD Dr Ruiz following lumbar CT without contrast pending read Code(s): M46.46 - DISCITIS, UNSPECIFIED, LUMBAR REGION (2) ESRD on hemodialysis Assessment/Plan: Hd per renal via left arm fistula Code(s): N18.6 - END STAGE RENAL DISEASE; Z99.2 - DEPENDENCE ON RENAL DIALYSIS (3) Gastric ulcer Assessment/Plan: on protonix Code(s): K25.9 - GASTRIC ULCER, UNSP ACUTE OR CHRONIC, W/O HEMOR OR PERF (4) Low back pain Assessment/Plan: pain meds adjusted for PT therapy surgery following Code(s): M54.5 - LOW BACK PAIN Qualifiers: Chronicity: acute Back pain laterality: unspecified Sciatica presence: without sciatica Qualified Code(s): M54.5 - Low back pain (5) HTN (hypertension) Assessment/Plan: c/w hydralazine, norvasc Code(s): I10 - ESSENTIAL (PRIMARY) HYPERTENSION (6) Atrial flutter Assessment/Plan: rate improved now c/w coreg c/w tele can up-titrate Cardizem for improved rate control hep gtt for now can re-start eliquis 5 bid if no surgical intervention planned Code(s): I48.92 - UNSPECIFIED ATRIAL FLUTTER Qualifiers: Atrial flutter type: unspecified Qualified Code(s): I48.92 - Unspecified atrial flutter (7) BPH (benign prostatic hyperplasia) Code(s): N40.0 - BENIGN PROSTATIC HYPERPLASIA WITHOUT LOWER URINRY TRACT SYMP (8) Gram-positive cocci bacteremia Code(s): R78.81 - BACTEREMIA (9) NSVT (nonsustained ventricular tachycardia) Assessment/Plan: nvst yesterday, for echo today Code(s): I47.2 - VENTRICULAR TACHYCARDIA Visit type - Emergency Visit Emergency Visit: Yes ED Registration Date: 07/28/19 Care time: The patient presented to the Emergency Department on the above date and was hospitalized for further evaluation of their emergent condition. - New Patient This patient is new to me today: Yes Date on this admission: 08/02/19 - Critical Care Critical Care patient: No - Discharge Referral Referred to [facility] Med P.C.: No
[2019-08-02] MEDS: hydrALAZINE HCL 10 MG TABLET PO SCH ×2 (10:19→22:48)
[2019-08-02] MEDS: CALCITRIOL 0.25 MCG CAPSULE (FP) PO SCH (10:19)
[2019-08-02] MEDS: TAMSULOSIN HCL 0.4 MG CAP PO SCH (10:20)
[2019-08-02] MEDS: amLODIPine BESYLATE 10 MG TABLET (FP) PO SCH (10:20)
[2019-08-02] MEDS: CALCIUM ACETATE 667 MG CAPSULE (FP) PO SCH ×3 (10:20→17:05)
[2019-08-02] MEDS: CARVEDILOL 25 MG TABLET (FP) PO SCH ×2 (10:20→22:48)
[2019-08-02] MEDS: PANTOPRAZOLE 40 MG TABLET (FP) PO SCH (10:20)
[2019-08-02] MEDS: DOCUSATE SODIUM 100 MG CAPSULE (FP) PO SCH ×2 (10:20→22:48)
[2019-08-02] MEDS: LIDOCAINE 5% TOPICAL PATCH TP SCH (10:30)
[2019-08-02] MEDS: oxyCODONE HCL 5 MG TABLET PO PRN ×2 (12:35→20:03)
[2019-08-02] MEDS ORDERED: SODIUM CHLORIDE 250 ML IV PRN (13:39)
--- NOTE | 2019-08-02 13:39 | PN ---
Progress Note, Physician History of Present Illness: Pt seen and examined at bedside. He is awake and alert. He tolerated HD yesterday. - Current Medication List Current Medications: Active Medications Amlodipine Besylate (Norvasc -) 10 mg PO DAILY [facility] Last Admin: 08/02/19 10:20 Dose: 10 mg Calcitriol (Rocaltrol -) 0.25 mcg PO DAILY [facility] Last Admin: 08/02/19 10:19 Dose: 0.25 mcg Calcium Acetate (Phoslo -) 667 mg PO TIDCM [facility] Last Admin: 08/02/19 12:35 Dose: 667 mg Carvedilol (Coreg -) 25 mg PO BID [facility] Last Admin: 08/02/19 10:20 Dose: 25 mg Diltiazem HCl (Cardizem Cd -) 240 mg PO DAILY [facility] Last Admin: 08/02/19 10:19 Dose: 240 mg Docusate Sodium (Colace -) 100 mg PO BID [facility] Last Admin: 08/02/19 10:20 Dose: 100 mg Furosemide (Lasix -) 40 mg PO BIDLASIX [facility] Last Admin: 08/02/19 06:46 Dose: 40 mg Heparin Sodium (Porcine) (Heparin -) 1,000 unit IVPUSH PRN PRN PRN Reason: Heparin Last Admin: 08/01/19 18:42 Dose: 1,000 unit Heparin Sodium (Porcine) (Heparin -) 5,000 unit IVPUSH PRN PRN PRN Reason: Heparin Last Admin: 08/02/19 02:40 Dose: 5,000 unit Hydralazine HCl (Apresoline -) 10 mg PO BID [facility] Last Admin: 08/02/19 10:19 Dose: 10 mg Heparin Sodium (Porcine) 25, (000 unit/ Sodium Chloride) 500 mls @ 16 mls/hr IV TITR [facility]; Protocol Last Titration: 08/02/19 06:57 Dose: 1,850 unit/hr, 37 mls/hr Piperacillin Sod/Tazobactam (Sod 2.25 gm/ Dextrose) 50 mls @ 100 mls/hr IVPB Q8H-IV [facility]; Protocol Last Admin: 08/02/19 10:19 Dose: 100 mls/hr Sodium Chloride (Normal Saline -) 250 mls @ 3,000 mls/hr IV PRN PRN PRN Reason: Hypotension during Dialysis Stop: 07/31/19 15:31 Vancomycin HCl (Vancomycin (Pre-Docked)) 1,000 mg in 250 mls @ 166.667 mls/hr IVPB MoWeFr@1200 [facility] Lidocaine (Lidoderm Patch -) 1 patch TP DAILY [facility] Last Admin: 08/02/19 10:30 Dose: 1 patch Methyl Salicylate (Raul-Maharaj -) 1 applic TP BID [facility] Miscellaneous (Lidoderm Patch Removal) 1 each MC DAILY@2200 [facility] Last Admin: 08/01/19 23:10 Dose: 1 each Oxycodone HCl (Roxicodone -) 10 mg PO Q6H PRN PRN Reason: PAIN LEVEL 7 - 10 Last Admin: 08/02/19 12:35 Dose: 10 mg Pantoprazole Sodium (Protonix -) 40 mg PO DAILY [facility] Last Admin: 08/02/19 10:20 Dose: 40 mg Polyethylene Glycol (Miralax (For Daily Use) -) 17 gm PO DAILY [facility] Tamsulosin HCl (Flomax -) 0.4 mg PO DAILY@0830 [facility] Last Admin: 08/02/19 10:20 Dose: 0.4 mg Tramadol HCl (Ultram -) 50 mg PO Q6H PRN PRN Reason: PAIN LEVEL 4 - 6 - Objective Vital Signs: Vital Signs Temperature 97.8 F 08/02/19 06:00 Pulse Rate 67 08/02/19 06:00 Respiratory Rate 20 08/02/19 06:00 Blood Pressure 120/72 08/02/19 06:00 O2 Sat by Pulse Oximetry (%) 95 08/01/19 21:00 Constitutional: Yes: Calm Eyes: Yes: Conjunctiva Clear HENT: Yes: Atraumatic Neck: Yes: Supple Cardiovascular: Yes: S1, S2 Respiratory: Yes: CTA Bilaterally Gastrointestinal: Yes: Soft Genitourinary: Yes: WNL Musculoskeletal: Yes: WNL Edema: No Integumentary: Yes: WNL Neurological: Yes: Oriented Psychiatric: Yes: Oriented Labs: CBC, BMP 08/02/19 05:40 08/02/19 05:40 INR, PTT INR 1.32 (0.83-1.09) H 07/28/19 21:50 Problem List - Problems (1) Low back pain Code(s): M54.5 - LOW BACK PAIN Qualifiers: Chronicity: acute Back pain laterality: unspecified Sciatica presence: without sciatica Qualified Code(s): M54.5 - Low back pain (2) Anemia Code(s): D64.9 - ANEMIA, UNSPECIFIED Qualifiers: Anemia type: due to chronic kidney disease Chronic kidney disease stage: stage 4 (severe) Qualified Code(s): N18.4 - Chronic kidney disease, stage 4 ( severe); D63.1 - Anemia in chronic kidney disease (3) ESRD (end stage renal disease) Code(s): N18.6 - END STAGE RENAL DISEASE Assessment/Plan Current Medications Generic Name Dose Route Start Last Admin Trade Name Freq PRN Reason Stop Dose Admin Amlodipine Besylate 10 mg 07/29/19 10:00 08/02/19 10:20 Norvasc - PO 10 mg DAILY [facility] Administration Calcitriol 0.25 mcg 07/29/19 10:00 08/02/19 10:19 Rocaltrol - PO 0.25 mcg DAILY [facility] Administration Calcium Acetate 667 mg 07/29/19 08:00 08/02/19 12:35 Phoslo - PO 667 mg TIDCM [facility]ANDA Administration Carvedilol 25 mg 07/29/19 10:00 08/02/19 10:20 Coreg - PO 25 mg BID [facility]AN[facility] Administration Diltiazem HCl 240 mg 07/30/19 10:00 08/02/19 10:19 Cardizem Cd - PO 240 mg DAILY [facility] Administration Docusate Sodium 100 mg 08/02/19 10:00 08/02/19 10:20 Colace - PO 100 mg BID [facility]DA Administration Furosemide 40 mg 07/29/19 06:00 08/02/19 06:46 Lasix - PO 40 mg BIDLASIX [facility] Administration Heparin Sodium (Porcine) 1,000 unit 07/29/19 11:40 08/01/19 18:42 Heparin - IVPUSH 1,000 unit PRN PRN Administration Heparin Heparin Sodium (Porcine) 5,000 unit 07/29/19 11:40 08/02/19 02:40 Heparin - IVPUSH 5,000 unit PRN PRN Administration Heparin Hydralazine HCl 10 mg 07/29/19 10:00 08/02/19 10:19 Apresoline - PO 10 mg BID [facility]DA Administration Heparin Sodium (Porcine) 25, 500 mls @ 16 mls/hr 07/29/19 11:45 08/02/19 06: 57 000 unit/ Sodium Chloride IV 1,850 unit/hr TITR WANDA 37 mls/hr Titration Protocol 800 UNIT/HR Piperacillin Sod/Tazobactam 50 mls @ 100 mls/hr 07/29/19 18:00 08/02/19 10:19 Sod 2.25 gm/ Dextrose IVPB 100 mls/hr Q8H-IV [facility]ANDA Administration Protocol Sodium Chloride 250 mls @ 3,000 mls/hr 07/30/19 15:31 Normal Saline - IV 07/31/19 15:31 PRN PRN Hypotension during Dialysis Vancomycin HCl 1,000 mg in 250 mls @ 166.667 mls/hr 08/02/19 12:00 Vancomycin (Pre-Docked) IVPB MoWeFr@1200 [facility] Lidocaine 1 patch 07/30/19 10:00 08/02/19 10:30 Lidoderm Patch - TP 1 patch DAILY [facility] Administration Methyl Salicylate 1 applic 08/02/19 10:00 Rual-Maharaj - TP BID WANDA Miscellaneous 1 each 07/30/19 22:00 08/01/19 23:10 Lidoderm Patch Removal MC 1 each DAILY@2200 [facility] Administration Oxycodone HCl 10 mg 08/02/19 09:43 08/02/19 12:35 Roxicodone - PO 10 mg Q6H PRN Administration PAIN LEVEL 7 - 10 Pantoprazole Sodium 40 mg 07/30/19 10:00 08/02/19 10:20 Protonix - PO 40 mg DAILY [facility] Administration Polyethylene Glycol 17 gm 08/02/19 10:00 Miralax (For Daily Use) - PO DAILY [facility] Tamsulosin HCl 0.4 mg 07/29/19 08:30 08/02/19 10:20 Flomax - PO 0.4 mg DAILY@0830 [facility] Administration Tramadol HCl 50 mg 07/30/19 09:20 Ultram - PO Q6H PRN PAIN LEVEL 4 - 6 Impression 1. ESRD 2. a-flutter 3. diskitis/osteomyelitis L5/S1 4. htn 5. hld Plan - HD tomorrow - abx per ID - renal diet - rx 3 1/2 abf 450 2 k bath heparin 3500 loading, 98.5 dw, epogen 6000 units, hectorol 2.5 mcg
[2019-08-02] MEDS: HEPARIN - 25,000 UNIT in SODIUM CHLORIDE 495 ML IV SCH (14:19)
[2019-08-02] MEDS: VANCOMYCIN 1 GRAM (PRE-DOCKED) 1,000 MG/250 ML BAG IVPB SCH (14:41)
--- NOTE | 2019-08-02 15:26 | PN ---
Progress Note, Physician History of Present Illness: pain main issues blood cx negative - Current Medication List Current Medications: Active Medications Amlodipine Besylate (Norvasc -) 10 mg PO DAILY [facility] Last Admin: 08/02/19 10:20 Dose: 10 mg Calcitriol (Rocaltrol -) 0.25 mcg PO DAILY [facility] Last Admin: 08/02/19 10:19 Dose: 0.25 mcg Calcium Acetate (Phoslo -) 667 mg PO TIDCM [facility] Last Admin: 08/02/19 12:35 Dose: 667 mg Carvedilol (Coreg -) 25 mg PO BID [facility] Last Admin: 08/02/19 10:20 Dose: 25 mg Diltiazem HCl (Cardizem Cd -) 240 mg PO DAILY [facility] Last Admin: 08/02/19 10:19 Dose: 240 mg Docusate Sodium (Colace -) 100 mg PO BID [facility] Last Admin: 08/02/19 10:20 Dose: 100 mg Epoetin Gabo (Epogen -) 7,000 unit IVPUSH ONCE ONE Stop: 08/03/19 13:40 Furosemide (Lasix -) 40 mg PO BIDLASIX [facility] Last Admin: 08/02/19 14:21 Dose: 40 mg Heparin Sodium (Porcine) (Heparin -) 1,000 unit IVPUSH PRN PRN PRN Reason: Heparin Last Admin: 08/01/19 18:42 Dose: 1,000 unit Heparin Sodium (Porcine) (Heparin -) 5,000 unit IVPUSH PRN PRN PRN Reason: Heparin Last Admin: 08/02/19 02:40 Dose: 5,000 unit Hydralazine HCl (Apresoline -) 10 mg PO BID [facility] Last Admin: 08/02/19 10:19 Dose: 10 mg Heparin Sodium (Porcine) 25, (000 unit/ Sodium Chloride) 500 mls @ 16 mls/hr IV TITR [facility]; Protocol Last Admin: 08/02/19 14:19 Dose: 1,850 unit/hr, 37 mls/hr Piperacillin Sod/Tazobactam (Sod 2.25 gm/ Dextrose) 50 mls @ 100 mls/hr IVPB Q8H-IV [facility]; Protocol Last Admin: 08/02/19 10:19 Dose: 100 mls/hr Sodium Chloride (Normal Saline -) 250 mls @ 3,000 mls/hr IV PRN PRN PRN Reason: Hypotension during Dialysis Stop: 07/31/19 15:31 Vancomycin HCl (Vancomycin (Pre-Docked)) 1,000 mg in 250 mls @ 166.667 mls/hr IVPB MoWeFr@1200 [facility] Last Admin: 08/02/19 14:41 Dose: Not Given Sodium Chloride (Normal Saline -) 250 mls @ 3,000 mls/hr IV PRN PRN PRN Reason: Hypotension during Dialysis Stop: 08/03/19 13:39 Lidocaine (Lidoderm Patch -) 1 patch TP DAILY [facility] Last Admin: 08/02/19 10:30 Dose: 1 patch Methyl Salicylate (Raul-Maharaj -) 1 applic TP BID [facility] Miscellaneous (Lidoderm Patch Removal) 1 each MC DAILY@2200 [facility] Last Admin: 08/01/19 23:10 Dose: 1 each Oxycodone HCl (Roxicodone -) 10 mg PO Q6H PRN PRN Reason: PAIN LEVEL 7 - 10 Last Admin: 08/02/19 12:35 Dose: 10 mg Pantoprazole Sodium (Protonix -) 40 mg PO DAILY [facility] Last Admin: 08/02/19 10:20 Dose: 40 mg Polyethylene Glycol (Miralax (For Daily Use) -) 17 gm PO DAILY [facility] Tamsulosin HCl (Flomax -) 0.4 mg PO DAILY@0830 [facility] Last Admin: 08/02/19 10:20 Dose: 0.4 mg Tramadol HCl (Ultram -) 50 mg PO Q6H PRN PRN Reason: PAIN LEVEL 4 - 6 - Objective Vital Signs: Vital Signs Temperature 98.1 F 08/02/19 14:00 Pulse Rate 72 08/02/19 14:00 Respiratory Rate 20 08/02/19 06:00 Blood Pressure 97/55 L 08/02/19 14:00 O2 Sat by Pulse Oximetry (%) 95 08/01/19 21:00 Constitutional: Yes: Calm, Mild Distress Cardiovascular: Yes: Regular Rate and Rhythm Respiratory: Yes: Regular, CTA Bilaterally Gastrointestinal: Yes: Normal Bowel Sounds, Soft Musculoskeletal: Yes: Back Pain Extremities: Yes: WNL Neurological: Yes: Alert, Oriented Psychiatric: Yes: Alert, Oriented Labs: CBC, BMP 08/02/19 05:40 08/02/19 05:40 INR, PTT INR 1.32 (0.83-1.09) H 07/28/19 21:50 Assessment/Plan Problem List - Problems (1) Discitis of lumbar region Code(s): M46.46 - DISCITIS, UNSPECIFIED, LUMBAR REGION (2) ESRD on hemodialysis Code(s): N18.6 - END STAGE RENAL DISEASE; Z99.2 - DEPENDENCE ON RENAL DIALYSIS (3) BPH (benign prostatic hyperplasia) Code(s): N40.0 - BENIGN PROSTATIC HYPERPLASIA WITHOUT LOWER URINRY TRACT SYMP (4) Gastric ulcer Code(s): K25.9 - GASTRIC ULCER, UNSP ACUTE OR CHRONIC, W/O HEMOR OR PERF (5) Prophylactic measure Code(s): Z29.9 - ENCOUNTER FOR PROPHYLACTIC MEASURES, UNSPECIFIED (6) CHF (congestive heart failure) Code(s): I50.9 - HEART FAILURE, UNSPECIFIED Qualifiers: Heart failure chronicity: chronic (7) COPD (chronic obstructive pulmonary disease) Code(s): J44.9 - CHRONIC OBSTRUCTIVE PULMONARY DISEASE, UNSPECIFIED (8) ESRD (end stage renal disease) Code(s): N18.6 - END STAGE RENAL DISEASE (9) HTN (hypertension) Code(s): I10 - ESSENTIAL (PRIMARY) HYPERTENSION (10) Hyperlipidemia Code(s): E78.5 - HYPERLIPIDEMIA, UNSPECIFIED Qualifiers: Hyperlipidemia type: pure hypercholesterolemia Qualified Code(s): E78.00 - Pure hypercholesterolemia, unspecified; E78.0 - Pure hypercholesterolemia (11) Low back pain Code(s): M54.5 - LOW BACK PAIN Qualifiers: Chronicity: acute Back pain laterality: unspecified Sciatica presence: without sciatica Qualified Code(s): M54.5 - Low back pain (12) Atrial flutter Code(s): I48.92 - UNSPECIFIED ATRIAL FLUTTER Qualifiers: Atrial flutter type: unspecified Qualified Code(s): I48.92 - plan continue abx d/w neurosurgery repeat imaging seen will need abx for at least 6 weeks more before any further plan or surgical plan is made
--- NOTE | 2019-08-02 16:44 | ECHO ---
Name: DOMINIK CHANDLER Exam:Adult Echocardiogram Study Date: 08/02/2019 11:05 AM Age: 59 yrs Reason For Study: CHF, NSVT Height: 73 in Weight: 217 lb BSA: 2.2 m2 MMode/2D Measurements & Calculations IVSd: 1.1 cm Ao root diam: 3.3 cm LVIDd: 4.7 cm LA dimension: 4.3 cm LVIDs: 3.5 cm ACS: 2.0 cm LVPWd: 1.9 cm EDV(Teich): 102.8 ml LVOT diam: 1.9 cm ESV(Teich): 50.2 ml RV S Ángel: 13.2 cm/sec Doppler Measurements & Calculations MV E max ángel: 115.5 cm/sec Ao V2 max: 136.3 cm/sec MV A max ángel: 50.3 cm/sec Ao max P.4 mmHg MV E/A: 2.3 Ao V2 mean: 112.7 cm/sec MV dec time: 0.14 sec Ao mean P.4 mmHg Ao V2 VTI: 32.5 cm VANGIE(I,D): 1.6 cm2 AI P1/2t: 465.3 msec VANGIE(V,D): 1.9 cm2 AI max ángel: 325.8 cm/sec LV V1 max P.1 mmHg AI max P.4 mmHg LV V1 mean P.8 mmHg AI dec slope: 205.1 cm/sec2 LV V1 max: 88.4 cm/sec LV V1 mean: 62.5 cm/sec LV V1 VTI: 17.4 cm MR max ángel: 405.1 cm/sec SV(LVOT): 51.0 ml MR max P.2 mmHg TR max ángel: 296.6 cm/sec PA V2 max: 63.7 cm/sec TR max P.3 mmHg PA max P.6 mmHg PI end-d ángel: 222.6 cm/sec Med Peak E' Ángel: 8.0 cm/sec Med E/e': 14.5 Lat Peak E' Ángel: 5.5 cm/sec Lat E/e': 21.2 Procedure A complete two-dimensional transthoracic echocardiogram was performed (2D, M-mode, Doppler and color flow Doppler). Left Ventricle The left ventricle is normal in size. Left ventricular systolic function is low normal. Ejection Frac tion = 50-55%. No regional wall motion abnormalities noted. Right Ventricle The right ventricle is normal size. The right ventricular systolic function is normal. RV systolic TD I is 13 cm/s. Atria The left atrium is mildly dilated. The right atrium is mildly dilated. Mitral Valve There is mild mitral valve thickening. There is moderate mitral regurgitation. Tricuspid Valve The tricuspid valve is normal in structure and function. There is moderate tricuspid regurgitation. P ulmonary artery systolic pressure is at least 43 mmHg if RA pressure is assumed 3 mmHg. Aortic Valve There is mild aortic sclerosis.;. Mild aortic regurgitation. Pulmonic Valve The pulmonic valve is not well visualized. Mild pulmonic valvular regurgitation. Great Vessels The aortic root is normal size. Pericardium/Pleura There is no pericardial effusion. Interpretation Summary The left ventricle is normal in size. Left ventricular systolic function is low normal. No regional wall motion abnormalities noted. Ejection Fraction = 50-55%. The right ventricular systolic function is normal. The left atrium is mildly dilated. The right atrium is mildly dilated. There is mild mitral valve thickening. There is moderate mitral regurgitation. There is moderate tricuspid regurgitation. Pulmonary artery systolic pressure is at least 43 mmHg if RA pressure is assumed 3 mmHg There is mild aortic sclerosis. Mild aortic regurgitation. Mild pulmonic valvular regurgitation. There is no pericardial effusion. Enoch Trivedi MD 08/02/2019 04:44 PM
[2019-08-02] MEDS: METHYL SALICYLATE/MENTHOL OINT 30 GM TUBE TP SCH ×2 (17:05→22:47)
[2019-08-02] MEDS: POLYETHYLENE GLYCOL 3350 119 GM BTL PO SCH (18:13)
[2019-08-02] MEDS: LIDOCAINE PATCH REMOVAL MC SCH (22:48)
[2019-08-03] MEDS: PIPERACILLIN/TAZOB 2.25 GM 2.25 GM in DEXTROSE 5%-WATER - 50 ML IVPB SCH ×3 (03:00→17:34)
[2019-08-03] MEDS ORDERED: PIPERACILLIN/TAZOBACTAM 2.25 GM VIAL IVPB ONE ×3 (03:30→17:31)
[2019-08-03] MEDS ORDERED: DEXTROSE 5%-WATER - 50 ML IVPB ONE ×3 (03:31→17:31)
[2019-08-03] MEDS: FUROSEMIDE 40 MG TABLET (FP) PO SCH ×2 (06:42→14:47)
[2019-08-03] MEDS ORDERED: EPOETIN ALFA 3,000 UNIT/1 ML ML IVPUSH ONE (09:00)
[2019-08-03] MEDS: PANTOPRAZOLE 40 MG TABLET (FP) PO SCH (09:36)
[2019-08-03] MEDS: amLODIPine BESYLATE 10 MG TABLET (FP) PO SCH (09:36)
[2019-08-03] MEDS: CARVEDILOL 25 MG TABLET (FP) PO SCH ×2 (09:36→22:08)
[2019-08-03] MEDS: hydrALAZINE HCL 10 MG TABLET PO SCH ×2 (09:36→22:08)
[2019-08-03] MEDS: CALCITRIOL 0.25 MCG CAPSULE (FP) PO SCH (09:36)
[2019-08-03] MEDS: DOCUSATE SODIUM 100 MG CAPSULE (FP) PO SCH ×2 (09:37→22:08)
[2019-08-03] MEDS: TAMSULOSIN HCL 0.4 MG CAP PO SCH (09:37)
[2019-08-03] MEDS: CALCIUM ACETATE 667 MG CAPSULE (FP) PO SCH ×3 (09:38→17:34)
[2019-08-03] MEDS: LIDOCAINE 5% TOPICAL PATCH TP SCH (09:54)
[2019-08-03] MEDS: POLYETHYLENE GLYCOL 3350 119 GM BTL PO SCH (09:55)
[2019-08-03] MEDS: METHYL SALICYLATE/MENTHOL OINT 30 GM TUBE TP SCH ×2 (09:55→22:08)
[2019-08-03] MEDS: oxyCODONE HCL 5 MG TABLET PO PRN ×2 (10:00→22:08)
[2019-08-03 10:54] LABS: HEMATOCRIT 27.4 % (35.4-49); MCH 30.8 pg (25.7-33.7); MCHC 32.8 g/dl (32.0-35.9); MEAN CELL VOLUME 93.9 fl (80-96); MEAN PLT VOLUME 8.2 fl (7.5-11.1); PLATELET COUNT 201 K/MM3 (134-434); RBC 2.92 M/mm3 (4.00-5.60); RDW 17.2 % (11.9-15.9); WHITE BLOOD COUNT 4.7 K/mm3 (4.0-10.0)
[2019-08-03 11:16] LABS: ALBUMIN 2.6 g/dl (3.4-5.0); BILIRUBIN,TOTAL 0.4 mg/dL (0.2-1); BLOOD UREA NITROGEN 32.6 mg/dL (7-18); CALCIUM 9.1 mg/dL (8.5-10.1); POTASSIUM 4.1 mmol/L (3.5-5.1); TOT PROT 6.9 g/dl (6.4-8.2)
[2019-08-03] MEDS: HEPARIN NA (PORCINE) 5,000 UNITS/ML 1ML VIAL IVPUSH PRN (11:33)
--- NOTE | 2019-08-03 12:30 | PN ---
Progress Note (short form) - Note Progress Note: s: seen in HD. no chest pain, palps, dizziness, dyspnea Current Medications Amlodipine Besylate (Norvasc -) [address] [facility] Last Admin: 08/03/19 09:36 Dose: 10 mg Calcitriol (Rocaltrol -) 0.[address] [facility] Last Admin: 08/03/19 09:36 Dose: 0.25 mcg Calcium Acetate (Phoslo -) [address] [facility] Last Admin: 08/03/19 11:20 Dose: Not Given Carvedilol (Coreg -) [address] [facility] Last Admin: 08/03/19 09:36 Dose: 25 mg Diltiazem HCl (Cardizem Cd -) [address] [facility] Last Admin: 08/03/19 09:36 Dose: 240 mg Docusate Sodium (Colace -) [address] [facility] Last Admin: 08/03/19 09:37 Dose: 100 mg Furosemide (Lasix -) [address] [facility] Last Admin: 08/03/19 06:42 Dose: Not Given Heparin Sodium (Porcine) (Heparin -) 1,000 unit IVPUSH PRN PRN PRN Reason: Heparin Last Admin: 08/01/19 18:42 Dose: 1,000 unit Heparin Sodium (Porcine) (Heparin -) 5,000 unit IVPUSH PRN PRN PRN Reason: Heparin Last Admin: 08/03/19 11:33 Dose: 5,000 unit Hydralazine HCl (Apresoline -) [address] [facility] Last Admin: 08/03/19 09:36 Dose: 10 mg Heparin Sodium (Porcine) 25, (000 unit/ Sodium Chloride) 500 mls @ 16 mls/hr IV TITR [facility]ANDA; Protocol Last Titration: 08/03/19 11:32 Dose: 2,000 unit/hr, 40 mls/hr Piperacillin Sod/Tazobactam (Sod 2.25 gm/ Dextrose) 50 mls @ 100 mls/hr IVPB Q8H-IV [facility]AN[facility]; Protocol Last Admin: 08/03/19 09:35 Dose: 100 mls/hr Vancomycin HCl (Vancomycin (Pre-Docked)) 1,000 mg in 250 mls @ 166.667 mls/hr IVPB MoWeFr@1200 [facility] Last Admin: 08/02/19 14:41 Dose: Not Given Sodium Chloride (Normal Saline -) 250 mls @ 3,000 mls/hr IV PRN PRN PRN Reason: Hypotension during Dialysis Stop: 08/03/19 13:39 Lidocaine (Lidoderm Patch -) [address] [facility] Last Admin: 08/03/19 09:54 Dose: 1 patch Methyl Salicylate (Raul-Maharaj -) [address] [facility] Last Admin: 08/03/19 09:55 Dose: 1 applic Miscellaneous (Lidoderm Patch Removal) 1 each MC DAILY@2200 [facility] Last Admin: 08/02/19 22:48 Dose: 1 each Oxycodone HCl (Roxicodone -) 10 mg PO Q6H PRN PRN Reason: PAIN LEVEL 7 - 10 Last Admin: 08/03/19 10:00 Dose: 10 mg Pantoprazole Sodium (Protonix -) [address] [facility] Last Admin: 08/03/19 09:36 Dose: 40 mg Polyethylene Glycol (Miralax (For Daily Use) -) [address] [facility] Last Admin: 08/03/19 09:55 Dose: Not Given Tamsulosin HCl (Flomax -) 0.4 mg PO DAILY@0830 [facility] Last Admin: 08/03/19 09:37 Dose: 0.4 mg Tramadol HCl (Ultram -) 50 mg PO Q6H PRN PRN Reason: PAIN LEVEL 4 - 6 Vital Signs Period Temp Pulse Resp BP Sys/Cannon Pulse Ox Last 24 Hr 97.8 F-98.6 F 64-90 18-20 97-142/55-89 97-97 Constitutional: Yes: Well Nourished, No Distress, Calm Cardiovascular: Yes: Pulse Irregular, S1, S2. No: Gallop, Murmur Respiratory: Yes: Regular, CTA Bilaterally. No: Accessory Muscle Use, Rales, Wheezes Extremities: No: Cold Edema: No Neurological: Yes: Alert, Oriented Psychiatric: No: Agitated Assessment/Plan echo 10/2018 nl LV/RV function, mild MR, mild TR, mild AR, mild dilation of ao root mibi 08/2017 nl EF, no ischemia EKG: aflutter, rate controlled, no ischemic changes echo 07/2019 low normal LV function EF 50-55%, nl RV function, LA/RA mildly dilated, mod MR, mod TR, PASP at least 43 mmHg, mild AR CXR: no congestion tele: AF/flutter hr's controlled A/P: 59M h/o EtOH abuse, CHF, HTN, CKD, COPD, aflutter, esrd on hd here with back pain. aflutter: -rate controlled: cont carvedilol, diltiazem -chadsvasc warrants ac. plan to start eliquis 5 bid but given possible septic discitis/spine osteo he may need procedure so would continue hep gtt for now. chronic diastolic chf: -was mildly volume-up here with JVD and orthopnea relieved by NC oxygen. wt stable - low normal LV function on echo here -well-compensated at present, no more sx's--lasix and UF volume removal per renal (limited by muscle cramping per pt) back pain: -being evaluated by ID, spine/neurosurgery--no infectious etiology documented at present, no intervention currently planned NSVT: -brief run. -EF preserved 10/27--will rpt echo to confirm no change given mult rf's for systolic dysfunction -lytes stable--routine repletion levels -no further episodes - low normal LV function on echo - dc tele copd: -no current sx's esrd: -hd per renal HTN: - controlled - cont current meds HLD: - cont statin
[2019-08-03 12:54] LABS: CREATININE 8.9 mg/dL (0.55-1.3)
--- NOTE | 2019-08-03 14:39 | PN ---
Physical Exam: SUBJECTIVE: Patient seen and examined at the bedside. ambulating in room, denies any chest pain or shortness of breath. OBJECTIVE: Patient is a 59 year old male with a past medical history of ESRD (HD M/W/F), CHF, COPD (on 3L O2 during dialysis), HTN, BPH, gastric ulcer who presents with osteomyelitis/discitis seen on outpatient lumbar spine MRI done at [facility]. Patient was called with results of MRI suggesting discitis/osteomyelitis in L5 and S1 and told to come to ED to receive IV abx and see Dr. Louis. Patient is also being evaluated for possible spine surgery with Dr. Soriano. imaging: lumbar spine ct w/o contrast 08/01/19: L5-S1 disc space narrowing with irregular endplates. sclerosed L5 vertebral body , superior aspect of s1 associated with paraspinal inflammatory changes with induraiton of paraspinal fat concerning for the discitis. lumbar spine mri 07/25/19: edema in the bone marrow of L5-S1 vertebrae with irregular contours of the endplate with bony erosions compatible septic discitis. possble underlying infectious process such as discitis and osteomyelitis is strongly suggested. Vital Signs Period Temp Pulse Resp BP Sys/Cannon Pulse Ox Last 24 Hr 97.8 F-98.6 F 64-98 18-20 107-142/56-97 97-97 GENERAL: The patient is awake, alert, and fully oriented, in no acute distress. HEAD: Normal with no signs of trauma. EYES: PERRL, extraocular movements intact, sclera anicteric, conjunctiva clear. No ptosis. ENT: Ears normal, nares patent, oropharynx clear without exudates, moist mucous membranes. NECK: Trachea midline, full range of motion, supple. LUNGS: diminished bilaterally, incentive spirometer encouraged HEART: nsr on chemicals distiller ABDOMEN: Soft, nontender, nondistended EXTREMITIES: no edema. left upper arm +bruit and thrill NEUROLOGICAL: Normal speech, gait not observed. PSYCH: Normal mood, normal affect. SKIN: Warm, dry, normal turgor, no rashes or lesions noted Laboratory Results - last 24 hr 08/03/19 08/03/19 08/03/19 10:30 10:30 10:30 WBC 4.7 RBC 2.92 L Hgb 9.0 L Hct 27.4 L MCV 93.9 MCH 30.8 MCHC 32.8 RDW 17.2 H Plt Count 201 MPV 8.2 PTT (Actin FS) 37.3 H Sodium 135 L Potassium 4.1 Chloride 101 Carbon Dioxide 25 Anion Gap 9 BUN 32.6 H Creatinine 8.9 H* Est GFR (CKD-EPI)AfAm 6.72 Est GFR (CKD-EPI)NonAf 5.79 Random Glucose 102 Calcium 9.1 Total Bilirubin 0.4 AST 8 L ALT 10 L Alkaline Phosphatase 71 Total Protein 6.9 Albumin 2.6 L Active Medications Generic Name Dose Route Start Last Admin Trade Name Freq PRN Reason Stop Dose Admin Amlodipine Besylate 10 mg 07/29/19 10:00 08/03/19 09:36 Norvasc - PO 10 mg DAILY [facility] Administration Calcitriol 0.25 mcg 07/29/19 10:00 08/03/19 09:36 Rocaltrol - PO 0.25 mcg DAILY [facility] Administration Calcium Acetate 667 mg 07/29/19 08:00 08/03/19 11:20 Phoslo - PO Not Given TIDCM [facility] Carvedilol 25 mg 07/29/19 10:00 08/03/19 09:36 Coreg - PO 25 mg BID [facility] Administration Diltiazem HCl 240 mg 07/30/19 10:00 08/03/19 09:36 Cardizem Cd - PO 240 mg DAILY [facility] Administration Docusate Sodium 100 mg 08/02/19 10:00 08/03/19 09:37 Colace - PO 100 mg BID [facility] Administration Furosemide 40 mg 07/29/19 06:00 08/03/19 06:42 Lasix - PO Not Given BIDLASIX [facility] Heparin Sodium (Porcine) 1,000 unit 07/29/19 11:40 08/01/19 18:42 Heparin - IVPUSH 1,000 unit PRN PRN Administration Heparin Heparin Sodium (Porcine) 5,000 unit 07/29/19 11:40 08/03/19 11:33 Heparin - IVPUSH 5,000 unit PRN PRN Administration Heparin Hydralazine HCl 10 mg 07/29/19 10:00 08/03/19 09:36 Apresoline - PO 10 mg BID [facility] Administration Heparin Sodium (Porcine) 25, 500 mls @ 16 mls/hr 07/29/19 11:45 08/03/19 11: 32 000 unit/ Sodium Chloride IV 2,000 unit/hr TITR [facility] 40 mls/hr Titration Protocol 800 UNIT/HR Piperacillin Sod/Tazobactam 50 mls @ 100 mls/hr 07/29/19 18:00 08/03/19 09:35 Sod 2.25 gm/ Dextrose IVPB 100 mls/hr Q8H-IV [facility] Administration Protocol Vancomycin HCl 1,000 mg in 250 mls @ 166.667 mls/hr 08/02/19 12:00 08/02/19 14:41 Vancomycin (Pre-Docked) IVPB Not Given MoWeFr@1200 [facility] Lidocaine 1 patch 07/30/19 10:00 08/03/19 09:54 Lidoderm Patch - TP 1 patch DAILY [facility] Administration Methyl Salicylate 1 applic 08/02/19 10:00 08/03/19 09:55 Raul-Maharaj - TP 1 applic BID [facility] Administration Miscellaneous 1 each 07/30/19 22:00 08/02/19 22:48 Lidoderm Patch Removal MC 1 each DAILY@2200 [facility] Administration Oxycodone HCl 10 mg 08/02/19 09:43 08/03/19 10:00 Roxicodone - PO 10 mg Q6H PRN Administration PAIN LEVEL 7 - 10 Pantoprazole Sodium 40 mg 07/30/19 10:00 08/03/19 09:36 Protonix - PO 40 mg DAILY [facility] Administration Polyethylene Glycol 17 gm 08/02/19 10:00 08/03/19 09:55 Miralax (For Daily Use) - PO Not Given DAILY [facility] Tamsulosin HCl 0.4 mg 07/29/19 08:30 08/03/19 09:37 Flomax - PO 0.4 mg DAILY@0830 [facility] Administration Tramadol HCl 50 mg 07/30/19 09:20 Ultram - PO Q6H PRN PAIN LEVEL 4 - 6 ASSESSMENT/PLAN: Problem List - Problems (1) Discitis of lumbar region Assessment/Plan: L12 and L5S1 discitis and instability on MRI disc degeneration changes /no paraspinal collection or clear evidence of osteomyelitis per neuro note ID following and recommended zosyn/vanco with HD. Length of antibiotic therapy to be decided on by ID. discharge planning in next 24-48 hours once antibiotic therapy confirmed. Dr Ruiz following lumbar CT as noted above Code(s): M46.46 - DISCITIS, UNSPECIFIED, LUMBAR REGION (2) ESRD on hemodialysis Assessment/Plan: Hd per renal via left arm fistula Code(s): N18.6 - END STAGE RENAL DISEASE; Z99.2 - DEPENDENCE ON RENAL DIALYSIS (3) Gastric ulcer Assessment/Plan: on protonix Code(s): K25.9 - GASTRIC ULCER, UNSP ACUTE OR CHRONIC, W/O HEMOR OR PERF (4) Low back pain Assessment/Plan: on oxycodone, bengay, lidoderm patches and physical therapy surgery following Code(s): M54.5 - LOW BACK PAIN Qualifiers: Chronicity: acute Back pain laterality: unspecified Sciatica presence: without sciatica Qualified Code(s): M54.5 - Low back pain (5) HTN (hypertension) Assessment/Plan: c/w hydralazine, norvasc Code(s): I10 - ESSENTIAL (PRIMARY) HYPERTENSION (6) Atrial flutter Assessment/Plan: rate improved now c/w coreg c/w tele can up-titrate Cardizem for improved rate control plan to re-start eliquis 5 bid but given possible septic discitis/spine osteo, may need procedure continue heparin drip for now Code(s): I48.92 - UNSPECIFIED ATRIAL FLUTTER Qualifiers: Atrial flutter type: unspecified Qualified Code(s): I48.92 - Unspecified atrial flutter (7) BPH (benign prostatic hyperplasia) Assessment/Plan: continue flomax Code(s): N40.0 - BENIGN PROSTATIC HYPERPLASIA WITHOUT LOWER URINRY TRACT SYMP (8) Gram-positive cocci bacteremia Assessment/Plan: GPC growing in one set of BC. repeat set negative for growth. ID following Code(s): R78.81 - BACTEREMIA (9) NSVT (nonsustained ventricular tachycardia) Assessment/Plan: brief run on tele noted echo shows low LV function Code(s): I47.2 - VENTRICULAR TACHYCARDIA Visit type - Emergency Visit Emergency Visit: Yes ED Registration Date: 07/28/19 Care time: The patient presented to the Emergency Department on the above date and was hospitalized for further evaluation of their emergent condition. - New Patient This patient is new to me today: No - Critical Care Critical Care patient: No - Discharge Referral Referred to [facility] Med P.C.: No
--- NOTE | 2019-08-03 14:54 | PN ---
Progress Note, Physician History of Present Illness: Pt seen and examined at bedside. He is awake and alert. He tolerated HD. - Current Medication List Current Medications: Active Medications Amlodipine Besylate (Norvasc -) 10 mg PO DAILY [facility] Last Admin: 08/03/19 09:36 Dose: 10 mg Calcitriol (Rocaltrol -) 0.25 mcg PO DAILY [facility] Last Admin: 08/03/19 09:36 Dose: 0.25 mcg Calcium Acetate (Phoslo -) 667 mg PO TIDCM [facility] Last Admin: 08/03/19 11:20 Dose: Not Given Carvedilol (Coreg -) 25 mg PO BID [facility] Last Admin: 08/03/19 09:36 Dose: 25 mg Diltiazem HCl (Cardizem Cd -) 240 mg PO DAILY [facility] Last Admin: 08/03/19 09:36 Dose: 240 mg Docusate Sodium (Colace -) 100 mg PO BID [facility] Last Admin: 08/03/19 09:37 Dose: 100 mg Furosemide (Lasix -) 40 mg PO BIDLASIX [facility] Last Admin: 08/03/19 14:47 Dose: Not Given Heparin Sodium (Porcine) (Heparin -) 1,000 unit IVPUSH PRN PRN PRN Reason: Heparin Last Admin: 08/01/19 18:42 Dose: 1,000 unit Heparin Sodium (Porcine) (Heparin -) 5,000 unit IVPUSH PRN PRN PRN Reason: Heparin Last Admin: 08/03/19 11:33 Dose: 5,000 unit Hydralazine HCl (Apresoline -) 10 mg PO BID [facility] Last Admin: 08/03/19 09:36 Dose: 10 mg Heparin Sodium (Porcine) 25, (000 unit/ Sodium Chloride) 500 mls @ 16 mls/hr IV TITR WANDA; Protocol Last Titration: 08/03/19 11:32 Dose: 2,000 unit/hr, 40 mls/hr Piperacillin Sod/Tazobactam (Sod 2.25 gm/ Dextrose) 50 mls @ 100 mls/hr IVPB Q8H-IV WANDA; Protocol Last Admin: 08/03/19 09:35 Dose: 100 mls/hr Vancomycin HCl (Vancomycin (Pre-Docked)) 1,000 mg in 250 mls @ 166.667 mls/hr IVPB MoWeFr@1200 [facility] Last Admin: 08/02/19 14:41 Dose: Not Given Lidocaine (Lidoderm Patch -) 1 patch TP DAILY [facility] Last Admin: 08/03/19 09:54 Dose: 1 patch Methyl Salicylate (Raul-Maharaj -) 1 applic TP BID [facility] Last Admin: 08/03/19 09:55 Dose: 1 applic Miscellaneous (Lidoderm Patch Removal) 1 each MC DAILY@2200 [facility] Last Admin: 08/02/19 22:48 Dose: 1 each Oxycodone HCl (Roxicodone -) 10 mg PO Q6H PRN PRN Reason: PAIN LEVEL 7 - 10 Last Admin: 08/03/19 10:00 Dose: 10 mg Pantoprazole Sodium (Protonix -) 40 mg PO DAILY [facility] Last Admin: 08/03/19 09:36 Dose: 40 mg Polyethylene Glycol (Miralax (For Daily Use) -) 17 gm PO DAILY [facility] Last Admin: 08/03/19 09:55 Dose: Not Given Tamsulosin HCl (Flomax -) 0.4 mg PO DAILY@0830 [facility] Last Admin: 08/03/19 09:37 Dose: 0.4 mg Tramadol HCl (Ultram -) 50 mg PO Q6H PRN PRN Reason: PAIN LEVEL 4 - 6 - Objective Vital Signs: Vital Signs Temperature 97.8 F 08/03/19 10:20 Pulse Rate 64 08/03/19 14:18 Respiratory Rate 18 08/03/19 14:18 Blood Pressure 119/80 08/03/19 14:18 O2 Sat by Pulse Oximetry (%) 97 08/03/19 09:00 Constitutional: Yes: Calm Eyes: Yes: Conjunctiva Clear HENT: Yes: Atraumatic Neck: Yes: Supple Cardiovascular: Yes: S1, S2 Respiratory: Yes: CTA Bilaterally Gastrointestinal: Yes: Soft Genitourinary: Yes: WNL Musculoskeletal: Yes: WNL Edema: Yes Edema: LLE: Trace, RLE: Trace Neurological: Yes: Oriented Psychiatric: Yes: Oriented Labs: CBC, BMP 08/03/19 10:30 08/03/19 10:30 INR, PTT INR 1.32 (0.83-1.09) H 07/28/19 21:50 Problem List - Problems (1) Low back pain Code(s): M54.5 - LOW BACK PAIN Qualifiers: Chronicity: acute Back pain laterality: unspecified Sciatica presence: without sciatica Qualified Code(s): M54.5 - Low back pain (2) Anemia Code(s): D64.9 - ANEMIA, UNSPECIFIED Qualifiers: Anemia type: due to chronic kidney disease Chronic kidney disease stage: stage 4 (severe) Qualified Code(s): N18.4 - Chronic kidney disease, stage 4 ( severe); D63.1 - Anemia in chronic kidney disease (3) ESRD (end stage renal disease) Code(s): N18.6 - END STAGE RENAL DISEASE Assessment/Plan Current Medications Generic Name Dose Route Start Last Admin Trade Name Freq PRN Reason Stop Dose Admin Amlodipine Besylate 10 mg 07/29/19 10:00 08/03/19 09:36 Norvasc - PO 10 mg DAILY [facility] Administration Calcitriol 0.25 mcg 07/29/19 10:00 08/03/19 09:36 Rocaltrol - PO 0.25 mcg DAILY [facility] Administration Calcium Acetate 667 mg 07/29/19 08:00 08/03/19 11:20 Phoslo - PO Not Given TIDCM [facility]DA Carvedilol 25 mg 07/29/19 10:00 08/03/19 09:36 Coreg - PO 25 mg BID [facility] Administration Diltiazem HCl 240 mg 07/30/19 10:00 08/03/19 09:36 Cardizem Cd - PO 240 mg DAILY [facility] Administration Docusate Sodium 100 mg 08/02/19 10:00 08/03/19 09:37 Colace - PO 100 mg BID [facility] Administration Furosemide 40 mg 07/29/19 06:00 08/03/19 14:47 Lasix - PO Not Given BIDLASIX [facility] Heparin Sodium (Porcine) 1,000 unit 07/29/19 11:40 08/01/19 18:42 Heparin - IVPUSH 1,000 unit PRN PRN Administration Heparin Heparin Sodium (Porcine) 5,000 unit 07/29/19 11:40 08/03/19 11:33 Heparin - IVPUSH 5,000 unit PRN PRN Administration Heparin Hydralazine HCl 10 mg 07/29/19 10:00 08/03/19 09:36 Apresoline - PO 10 mg BID [facility] Administration Heparin Sodium (Porcine) 25, 500 mls @ 16 mls/hr 07/29/19 11:45 08/03/19 11: 32 000 unit/ Sodium Chloride IV 2,000 unit/hr TITR [facility]ANDA 40 mls/hr Titration Protocol 800 UNIT/HR Piperacillin Sod/Tazobactam 50 mls @ 100 mls/hr 07/29/19 18:00 08/03/19 09:35 Sod 2.25 gm/ Dextrose IVPB 100 mls/hr Q8H-IV [facility]ANDA Administration Protocol Vancomycin HCl 1,000 mg in 250 mls @ 166.667 mls/hr 08/02/19 12:00 08/02/19 14:41 Vancomycin (Pre-Docked) IVPB Not Given MoWeFr@1200 [facility] Lidocaine 1 patch 07/30/19 10:00 08/03/19 09:54 Lidoderm Patch - TP 1 patch DAILY [facility] Administration Methyl Salicylate 1 applic 08/02/19 10:00 08/03/19 09:55 Raul-Maharaj - TP 1 applic BID [facility] Administration Miscellaneous 1 each 07/30/19 22:00 08/02/19 22:48 Lidoderm Patch Removal MC 1 each DAILY@2200 [facility] Administration Oxycodone HCl 10 mg 08/02/19 09:43 08/03/19 10:00 Roxicodone - PO 10 mg Q6H PRN Administration PAIN LEVEL 7 - 10 Pantoprazole Sodium 40 mg 07/30/19 10:00 08/03/19 09:36 Protonix - PO 40 mg DAILY [facility] Administration Polyethylene Glycol 17 gm 08/02/19 10:00 08/03/19 09:55 Miralax (For Daily Use) - PO Not Given DAILY [facility] Tamsulosin HCl 0.4 mg 07/29/19 08:30 08/03/19 09:37 Flomax - PO 0.4 mg DAILY@0830 [facility] Administration Tramadol HCl 50 mg 07/30/19 09:20 Ultram - PO Q6H PRN PAIN LEVEL 4 - 6 Impression 1. ESRD 2. a-flutter 3. diskitis/osteomyelitis L5/S1 4. htn 5. hld Plan - HD today - abx per medical team - renal diet - rx 3 1/ abf 450 2 k bath heparin 3500 loading, 98.5 dw, epogen 6000 units, hectorol 2.5 mcg
--- NOTE | 2019-08-03 17:26 | PN ---
Progress Note, Physician History of Present Illness: pain main issue says it is quite bad - Current Medication List Current Medications: Active Medications Amlodipine Besylate (Norvasc -) 10 mg PO DAILY [facility] Last Admin: 08/03/19 09:36 Dose: 10 mg Calcitriol (Rocaltrol -) 0.25 mcg PO DAILY [facility] Last Admin: 08/03/19 09:36 Dose: 0.25 mcg Calcium Acetate (Phoslo -) 667 mg PO TIDCM [facility] Last Admin: 08/03/19 11:20 Dose: Not Given Carvedilol (Coreg -) 25 mg PO BID [facility] Last Admin: 08/03/19 09:36 Dose: 25 mg Diltiazem HCl (Cardizem Cd -) 240 mg PO DAILY [facility] Last Admin: 08/03/19 09:36 Dose: 240 mg Docusate Sodium (Colace -) 100 mg PO BID [facility] Last Admin: 08/03/19 09:37 Dose: 100 mg Furosemide (Lasix -) 40 mg PO BIDLASIX [facility] Last Admin: 08/03/19 14:47 Dose: Not Given Heparin Sodium (Porcine) (Heparin -) 1,000 unit IVPUSH PRN PRN PRN Reason: Heparin Last Admin: 08/01/19 18:42 Dose: 1,000 unit Heparin Sodium (Porcine) (Heparin -) 5,000 unit IVPUSH PRN PRN PRN Reason: Heparin Last Admin: 08/03/19 11:33 Dose: 5,000 unit Hydralazine HCl (Apresoline -) 10 mg PO BID [facility] Last Admin: 08/03/19 09:36 Dose: 10 mg Heparin Sodium (Porcine) 25, (000 unit/ Sodium Chloride) 500 mls @ 16 mls/hr IV TITR [facility]ANDA; Protocol Last Titration: 08/03/19 11:32 Dose: 2,000 unit/hr, 40 mls/hr Piperacillin Sod/Tazobactam (Sod 2.25 gm/ Dextrose) 50 mls @ 100 mls/hr IVPB Q8H-IV [facility]ANDA; Protocol Last Admin: 08/03/19 09:35 Dose: 100 mls/hr Vancomycin HCl (Vancomycin (Pre-Docked)) 1,000 mg in 250 mls @ 166.667 mls/hr IVPB MoWeFr@1200 [facility] Last Admin: 08/02/19 14:41 Dose: Not Given Lidocaine (Lidoderm Patch -) 1 patch TP DAILY [facility] Last Admin: 08/03/19 09:54 Dose: 1 patch Methyl Salicylate (Raul-Maharaj -) 1 applic TP BID [facility] Last Admin: 08/03/19 09:55 Dose: 1 applic Miscellaneous (Lidoderm Patch Removal) 1 each MC DAILY@2200 [facility] Last Admin: 08/02/19 22:48 Dose: 1 each Oxycodone HCl (Roxicodone -) 10 mg PO Q6H PRN PRN Reason: PAIN LEVEL 7 - 10 Last Admin: 08/03/19 10:00 Dose: 10 mg Pantoprazole Sodium (Protonix -) 40 mg PO DAILY [facility] Last Admin: 08/03/19 09:36 Dose: 40 mg Polyethylene Glycol (Miralax (For Daily Use) -) 17 gm PO DAILY [facility] Last Admin: 08/03/19 09:55 Dose: Not Given Tamsulosin HCl (Flomax -) 0.4 mg PO DAILY@0830 [facility] Last Admin: 08/03/19 09:37 Dose: 0.4 mg Tramadol HCl (Ultram -) 50 mg PO Q6H PRN PRN Reason: PAIN LEVEL 4 - 6 - Objective Vital Signs: Vital Signs Temperature 97.8 F 08/03/19 10:20 Pulse Rate 64 08/03/19 14:18 Respiratory Rate 18 08/03/19 14:18 Blood Pressure 119/80 08/03/19 14:18 O2 Sat by Pulse Oximetry (%) 97 08/03/19 09:00 Constitutional: Yes: Calm, Mild Distress Cardiovascular: Yes: S1, S2 Respiratory: Yes: Regular, CTA Bilaterally Musculoskeletal: Yes: WNL Extremities: Yes: WNL Neurological: Yes: Alert, Oriented Psychiatric: Yes: Alert, Oriented Labs: CBC, BMP 08/03/19 10:30 08/03/19 10:30 INR, PTT INR 1.32 (0.83-1.09) H 07/28/19 21:50 Assessment/Plan Problem List - Problems (1) Discitis of lumbar region Code(s): M46.46 - DISCITIS, UNSPECIFIED, LUMBAR REGION (2) ESRD on hemodialysis Code(s): N18.6 - END STAGE RENAL DISEASE; Z99.2 - DEPENDENCE ON RENAL DIALYSIS (3) BPH (benign prostatic hyperplasia) Code(s): N40.0 - BENIGN PROSTATIC HYPERPLASIA WITHOUT LOWER URINRY TRACT SYMP (4) Gastric ulcer Code(s): K25.9 - GASTRIC ULCER, UNSP ACUTE OR CHRONIC, W/O HEMOR OR PERF (5) Prophylactic measure Code(s): Z29.9 - ENCOUNTER FOR PROPHYLACTIC MEASURES, UNSPECIFIED (6) CHF (congestive heart failure) Code(s): I50.9 - HEART FAILURE, UNSPECIFIED Qualifiers: Heart failure chronicity: chronic (7) COPD (chronic obstructive pulmonary disease) Code(s): J44.9 - CHRONIC OBSTRUCTIVE PULMONARY DISEASE, UNSPECIFIED (8) ESRD (end stage renal disease) Code(s): N18.6 - END STAGE RENAL DISEASE (9) HTN (hypertension) Code(s): I10 - ESSENTIAL (PRIMARY) HYPERTENSION (10) Hyperlipidemia Code(s): E78.5 - HYPERLIPIDEMIA, UNSPECIFIED Qualifiers: Hyperlipidemia type: pure hypercholesterolemia Qualified Code(s): E78.00 - Pure hypercholesterolemia, unspecified; E78.0 - Pure hypercholesterolemia (11) Low back pain Code(s): M54.5 - LOW BACK PAIN Qualifiers: Chronicity: acute Back pain laterality: unspecified Sciatica presence: without sciatica Qualified Code(s): M54.5 - Low back pain (12) Atrial flutter Code(s): I48.92 - UNSPECIFIED ATRIAL FLUTTER Qualifiers: Atrial flutter type: unspecified Qualified Code(s): I48.92 - plan continue abx d/w neurosurgery repeat imaging seen will need abx for at least 6 weeks more before any further plan or surgical plan is made
[2019-08-03] MEDS ORDERED: PT OWN MED DRAWER 7, Y5N ONE (17:30)
[2019-08-03] MEDS: LIDOCAINE PATCH REMOVAL MC SCH (22:09)
[2019-08-03] MEDS: HEPARIN - 25,000 UNIT in SODIUM CHLORIDE 495 ML IV SCH (22:09)
[2019-08-04] MEDS ORDERED: PIPERACILLIN/TAZOBACTAM 2.25 GM VIAL IVPB ONE ×3 (03:10→16:32)
[2019-08-04] MEDS ORDERED: DEXTROSE 5%-WATER - 50 ML IVPB ONE ×3 (03:10→16:32)
[2019-08-04] MEDS: PIPERACILLIN/TAZOB 2.25 GM 2.25 GM in DEXTROSE 5%-WATER - 50 ML IVPB SCH ×3 (03:30→17:15)
[2019-08-04] MEDS: FUROSEMIDE 40 MG TABLET (FP) PO SCH ×2 (06:27→13:14)
[2019-08-04 07:08] LABS: HEMATOCRIT 24.6 % (35.4-49); MCH 30.5 pg (25.7-33.7); MCHC 32.6 g/dl (32.0-35.9); MEAN CELL VOLUME 93.6 fl (80-96); MEAN PLT VOLUME 8.4 fl (7.5-11.1); PLATELET COUNT 173 K/MM3 (134-434); RBC 2.63 M/mm3 (4.00-5.60); RDW 17.1 % (11.9-15.9); WHITE BLOOD COUNT 4.1 K/mm3 (4.0-10.0)
[2019-08-04] MEDS: CALCIUM ACETATE 667 MG CAPSULE (FP) PO SCH ×3 (07:54→17:15)
[2019-08-04] MEDS: CARVEDILOL 25 MG TABLET (FP) PO SCH ×2 (09:20→21:58)
[2019-08-04] MEDS: DOCUSATE SODIUM 100 MG CAPSULE (FP) PO SCH ×2 (09:20→21:58)
[2019-08-04] MEDS: TAMSULOSIN HCL 0.4 MG CAP PO SCH (09:20)
[2019-08-04] MEDS: hydrALAZINE HCL 10 MG TABLET PO SCH ×2 (09:20→21:58)
[2019-08-04] MEDS: PANTOPRAZOLE 40 MG TABLET (FP) PO SCH (09:20)
[2019-08-04] MEDS: METHYL SALICYLATE/MENTHOL OINT 30 GM TUBE TP SCH ×2 (09:21→22:07)
[2019-08-04] MEDS: CALCITRIOL 0.25 MCG CAPSULE (FP) PO SCH (09:21)
[2019-08-04] MEDS: LIDOCAINE 5% TOPICAL PATCH TP SCH (09:21)
[2019-08-04] MEDS: amLODIPine BESYLATE 10 MG TABLET (FP) PO SCH (09:21)
[2019-08-04] MEDS: POLYETHYLENE GLYCOL 3350 119 GM BTL PO SCH (09:21)
--- NOTE | 2019-08-04 11:28 | PN ---
Progress Note (short form) - Note Progress Note: s: no chest pain, palps, dizziness, dyspnea Current Medications Amlodipine Besylate (Norvasc -) 10 mg PO DAILY [facility] Last Admin: 08/04/19 09:21 Dose: 10 mg Calcitriol (Rocaltrol -) 0.25 mcg PO DAILY [facility] Last Admin: 08/04/19 09:21 Dose: 0.25 mcg Calcium Acetate (Phoslo -) 667 mg PO TIDCM [facility] Last Admin: 08/04/19 07:54 Dose: 667 mg Carvedilol (Coreg -) 25 mg PO BID [facility] Last Admin: 08/04/19 09:20 Dose: 25 mg Diltiazem HCl (Cardizem Cd -) 240 mg PO DAILY [facility] Last Admin: 08/04/19 09:21 Dose: 240 mg Docusate Sodium (Colace -) 100 mg PO BID [facility] Last Admin: 08/04/19 09:20 Dose: 100 mg Furosemide (Lasix -) 40 mg PO BIDLASIX [facility] Last Admin: 08/04/19 06:27 Dose: 40 mg Heparin Sodium (Porcine) (Heparin -) 1,000 unit IVPUSH PRN PRN PRN Reason: Heparin Last Admin: 08/01/19 18:42 Dose: 1,000 unit Heparin Sodium (Porcine) (Heparin -) 5,000 unit IVPUSH PRN PRN PRN Reason: Heparin Last Admin: 08/03/19 11:33 Dose: 5,000 unit Hydralazine HCl (Apresoline -) 10 mg PO BID [facility] Last Admin: 08/04/19 09:20 Dose: 10 mg Heparin Sodium (Porcine) 25, (000 unit/ Sodium Chloride) 500 mls @ 16 mls/hr IV TITR WANDA; Protocol Last Admin: 08/03/19 22:09 Dose: 2,000 unit/hr, 40 mls/hr Piperacillin Sod/Tazobactam (Sod 2.25 gm/ Dextrose) 50 mls @ 100 mls/hr IVPB Q8H-IV WANDA; Protocol Last Admin: 08/04/19 09:19 Dose: 100 mls/hr Vancomycin HCl (Vancomycin (Pre-Docked)) 1,000 mg in 250 mls @ 166.667 mls/hr IVPB MoWeFr@1200 [facility] Last Admin: 08/02/19 14:41 Dose: Not Given Lidocaine (Lidoderm Patch -) 1 patch TP DAILY [facility] Last Admin: 08/04/19 09:21 Dose: 1 patch Methyl Salicylate (Raul-Maharaj -) 1 applic TP BID [facility] Last Admin: 08/04/19 09:21 Dose: 1 applic Miscellaneous (Lidoderm Patch Removal) 1 each MC DAILY@2200 [facility] Last Admin: 08/03/19 22:09 Dose: 1 each Oxycodone HCl (Roxicodone -) 10 mg PO Q6H PRN PRN Reason: PAIN LEVEL 7 - 10 Last Admin: 08/03/19 22:08 Dose: 10 mg Pantoprazole Sodium (Protonix -) 40 mg PO DAILY [facility] Last Admin: 08/04/19 09:20 Dose: 40 mg Polyethylene Glycol (Miralax (For Daily Use) -) 17 gm PO DAILY [facility] Last Admin: 08/04/19 09:21 Dose: 17 gm Tamsulosin HCl (Flomax -) 0.4 mg PO DAILY@0830 [facility] Last Admin: 08/04/19 09:20 Dose: 0.4 mg Tramadol HCl (Ultram -) 50 mg PO Q6H PRN PRN Reason: PAIN LEVEL 4 - 6 Last Admin: 08/04/19 07:54 Dose: 50 mg Vital Signs Period Temp Pulse Resp BP Sys/Cannon Pulse Ox Last 24 Hr 98.1 F-98.6 F 64-98 18-20 107-147/59-97 92-92 Constitutional: Yes: Well Nourished, No Distress, Calm Cardiovascular: Yes: Pulse Irregular, S1, S2. No: Gallop, Murmur Respiratory: Yes: Regular, CTA Bilaterally. No: Accessory Muscle Use, Rales, Wheezes Extremities: No: Cold Edema: No Neurological: Yes: Alert, Oriented Psychiatric: No: Agitated Assessment/Plan echo 10/2018 nl LV/RV function, mild MR, mild TR, mild AR, mild dilation of ao root mibi 08/2017 nl EF, no ischemia EKG: aflutter, rate controlled, no ischemic changes echo 07/2019 low normal LV function EF 50-55%, nl RV function, LA/RA mildly dilated, mod MR, mod TR, PASP at least 43 mmHg, mild AR CXR: no congestion A/P: 59M h/o EtOH abuse, CHF, HTN, CKD, COPD, aflutter, esrd on hd here with back pain. aflutter: -rate controlled: cont carvedilol, diltiazem -chadsvasc warrants ac. plan to start eliquis 5 bid pending possible interventions - given possible septic discitis/spine osteo he may need procedure so would continue hep gtt for now chronic diastolic chf: -was mildly volume-up here with JVD and orthopnea relieved by NC oxygen. wt stable - low normal LV function on echo here -well-compensated at present, no more sx's--lasix and UF volume removal per renal (limited by muscle cramping per pt) back pain: -being evaluated by ID, spine/neurosurgery--no infectious etiology documented at present, no intervention currently planned NSVT: -brief run. -EF preserved 10/27--will rpt echo to confirm no change given mult rf's for systolic dysfunction -lytes stable--routine repletion levels -no further episodes - low normal LV function on echo copd: -no current sx's esrd: -hd per renal HTN: - controlled - cont current meds HLD: - cont statin
[2019-08-04] MEDS: VANCOMYCIN 1 GRAM (PRE-DOCKED) 1,000 MG/250 ML BAG IVPB SCH (11:40)
[2019-08-04] MEDS: HEPARIN - 25,000 UNIT in SODIUM CHLORIDE 495 ML IV SCH (11:44)
[2019-08-04] MEDS: HEPARIN NA (PORCINE) 5,000 UNITS/ML 1ML VIAL IVPUSH PRN (11:46)
[2019-08-04] MEDS ORDERED: PT OWN MED DRAWER 7, Y5N ONE ×2 (13:00→15:10)
--- NOTE | 2019-08-04 13:17 | PN ---
Progress Note, Physician History of Present Illness: Pt seen and examined at bedside. He is awake and alert. - Current Medication List Current Medications: Active Medications Amlodipine Besylate (Norvasc -) 10 mg PO DAILY [facility] Last Admin: 08/04/19 09:21 Dose: 10 mg Calcitriol (Rocaltrol -) 0.25 mcg PO DAILY [facility] Last Admin: 08/04/19 09:21 Dose: 0.25 mcg Calcium Acetate (Phoslo -) 667 mg PO TIDCM [facility] Last Admin: 08/04/19 11:40 Dose: 667 mg Carvedilol (Coreg -) 25 mg PO BID [facility] Last Admin: 08/04/19 09:20 Dose: 25 mg Diltiazem HCl (Cardizem Cd -) 240 mg PO DAILY [facility] Last Admin: 08/04/19 09:21 Dose: 240 mg Docusate Sodium (Colace -) 100 mg PO BID [facility] Last Admin: 08/04/19 09:20 Dose: 100 mg Furosemide (Lasix -) 40 mg PO BIDLASIX [facility] Last Admin: 08/04/19 06:27 Dose: 40 mg Heparin Sodium (Porcine) (Heparin -) 1,000 unit IVPUSH PRN PRN PRN Reason: Heparin Last Admin: 08/04/19 11:46 Dose: 1,000 unit Heparin Sodium (Porcine) (Heparin -) 5,000 unit IVPUSH PRN PRN PRN Reason: Heparin Last Admin: 08/03/19 11:33 Dose: 5,000 unit Hydralazine HCl (Apresoline -) 10 mg PO BID [facility] Last Admin: 08/04/19 09:20 Dose: 10 mg Heparin Sodium (Porcine) 25, (000 unit/ Sodium Chloride) 500 mls @ 16 mls/hr IV TITR WANDA; Protocol Last Admin: 08/04/19 11:44 Dose: 2,100 unit/hr, 42 mls/hr Piperacillin Sod/Tazobactam (Sod 2.25 gm/ Dextrose) 50 mls @ 100 mls/hr IVPB Q8H-IV WANDA; Protocol Last Admin: 08/04/19 09:19 Dose: 100 mls/hr Vancomycin HCl (Vancomycin (Pre-Docked)) 1,000 mg in 250 mls @ 166.667 mls/hr IVPB MoWeFr@1200 [facility] Last Admin: 08/04/19 11:40 Dose: 166.667 mls/hr Lidocaine (Lidoderm Patch -) 1 patch TP DAILY [facility] Last Admin: 08/04/19 09:21 Dose: 1 patch Methyl Salicylate (Raul-Maharaj -) 1 applic TP BID [facility] Last Admin: 08/04/19 09:21 Dose: 1 applic Miscellaneous (Lidoderm Patch Removal) 1 each MC DAILY@2200 [facility] Last Admin: 08/03/19 22:09 Dose: 1 each Oxycodone HCl (Roxicodone -) 10 mg PO Q6H PRN PRN Reason: PAIN LEVEL 7 - 10 Last Admin: 08/03/19 22:08 Dose: 10 mg Pantoprazole Sodium (Protonix -) 40 mg PO DAILY [facility] Last Admin: 08/04/19 09:20 Dose: 40 mg Polyethylene Glycol (Miralax (For Daily Use) -) 17 gm PO DAILY [facility] Last Admin: 08/04/19 09:21 Dose: 17 gm Tamsulosin HCl (Flomax -) 0.4 mg PO DAILY@0830 [facility] Last Admin: 08/04/19 09:20 Dose: 0.4 mg Tramadol HCl (Ultram -) 50 mg PO Q6H PRN PRN Reason: PAIN LEVEL 4 - 6 Last Admin: 08/04/19 07:54 Dose: 50 mg - Objective Vital Signs: Vital Signs Temperature 98.6 F 08/04/19 08:15 Pulse Rate 89 08/04/19 08:15 Respiratory Rate 20 08/04/19 08:16 Blood Pressure 144/78 08/04/19 08:15 O2 Sat by Pulse Oximetry (%) 92 L 08/04/19 08:16 Constitutional: Yes: Calm Eyes: Yes: Conjunctiva Clear HENT: Yes: Atraumatic Neck: Yes: Supple Cardiovascular: Yes: S1, S2 Respiratory: Yes: CTA Bilaterally Gastrointestinal: Yes: Soft Genitourinary: Yes: WNL Musculoskeletal: Yes: Back Pain Edema: No Neurological: Yes: Oriented Psychiatric: Yes: Oriented Labs: CBC, BMP 08/04/19 06:00 08/03/19 10:30 INR, PTT INR 1.32 (0.83-1.09) H 07/28/19 21:50 Problem List - Problems (1) Low back pain Code(s): M54.5 - LOW BACK PAIN Qualifiers: Chronicity: acute Back pain laterality: unspecified Sciatica presence: without sciatica Qualified Code(s): M54.5 - Low back pain (2) Anemia Code(s): D64.9 - ANEMIA, UNSPECIFIED Qualifiers: Anemia type: due to chronic kidney disease Chronic kidney disease stage: stage 4 (severe) Qualified Code(s): N18.4 - Chronic kidney disease, stage 4 ( severe); D63.1 - Anemia in chronic kidney disease (3) ESRD (end stage renal disease) Code(s): N18.6 - END STAGE RENAL DISEASE Assessment/Plan Current Medications Generic Name Dose Route Start Last Admin Trade Name Freq PRN Reason Stop Dose Admin Amlodipine Besylate 10 mg 07/29/19 10:00 08/04/19 09:21 Norvasc - PO 10 mg DAILY [facility] Administration Calcitriol 0.25 mcg 07/29/19 10:00 08/04/19 09:21 Rocaltrol - PO 0.25 mcg DAILY [facility] Administration Calcium Acetate 667 mg 07/29/19 08:00 08/04/19 11:40 Phoslo - PO 667 mg TIDCM [facility] Administration Carvedilol 25 mg 07/29/19 10:00 08/04/19 09:20 Coreg - PO 25 mg BID [facility] Administration Diltiazem HCl 240 mg 07/30/19 10:00 08/04/19 09:21 Cardizem Cd - PO 240 mg DAILY [facility] Administration Docusate Sodium 100 mg 08/02/19 10:00 08/04/19 09:20 Colace - PO 100 mg BID [facility] Administration Furosemide 40 mg 07/29/19 06:00 08/04/19 13:14 Lasix - PO 40 mg BIDLASIX [facility] Administration Heparin Sodium (Porcine) 1,000 unit 07/29/19 11:40 08/04/19 11:46 Heparin - IVPUSH 1,000 unit PRN PRN Administration Heparin Heparin Sodium (Porcine) 5,000 unit 07/29/19 11:40 08/03/19 11:33 Heparin - IVPUSH 5,000 unit PRN PRN Administration Heparin Hydralazine HCl 10 mg 07/29/19 10:00 08/04/19 09:20 Apresoline - PO 10 mg BID [facility] Administration Heparin Sodium (Porcine) 25, 500 mls @ 16 mls/hr 07/29/19 11:45 08/04/19 11: 44 000 unit/ Sodium Chloride IV 2,100 unit/hr TITR WANDA 42 mls/hr Administration Protocol 800 UNIT/HR Piperacillin Sod/Tazobactam 50 mls @ 100 mls/hr 07/29/19 18:00 08/04/19 09:19 Sod 2.25 gm/ Dextrose IVPB 100 mls/hr Q8H-IV [facility] Administration Protocol Vancomycin HCl 1,000 mg in 250 mls @ 166.667 mls/hr 08/02/19 12:00 08/04/19 11:40 Vancomycin (Pre-Docked) IVPB 166.667 mls/hr MoWeFr@1200 WANDA Administration Lidocaine 1 patch 07/30/19 10:00 08/04/19 09:21 Lidoderm Patch - TP 1 patch DAILY WANDA Administration Methyl Salicylate 1 applic 08/02/19 10:00 08/04/19 09:21 Raul-Maharaj - TP 1 applic BID WANDA Administration Miscellaneous 1 each 07/30/19 22:00 08/03/19 22:09 Lidoderm Patch Removal MC 1 each DAILY@2200 WANDA Administration Oxycodone HCl 10 mg 08/02/19 09:43 08/03/19 22:08 Roxicodone - PO 10 mg Q6H PRN Administration PAIN LEVEL 7 - 10 Pantoprazole Sodium 40 mg 07/30/19 10:00 08/04/19 09:20 Protonix - PO 40 mg DAILY WANDA Administration Polyethylene Glycol 17 gm 08/02/19 10:00 08/04/19 09:21 Miralax (For Daily Use) - PO 17 gm DAILY WANDA Administration Tamsulosin HCl 0.4 mg 07/29/19 08:30 08/04/19 09:20 Flomax - PO 0.4 mg DAILY@0830 WANDA Administration Tramadol HCl 50 mg 07/30/19 09:20 08/04/19 07:54 Ultram - PO 50 mg Q6H PRN Administration PAIN LEVEL 4 - 6 Impression 1. ESRD 2. a-flutter 3. diskitis/osteomyelitis L5/S1 4. htn 5. hld Plan - renal diet - next HD on Friday - abx per medical team - renal diet - rx 3 1/ abf 450 2 k bath heparin 3500 loading, 98.5 dw, epogen 6000 units, hectorol 2.5 mcg
--- NOTE | 2019-08-04 18:44 | PN ---
Progress Note (short form) - Note Progress Note: Subjective: no fever or chills. has lower back pain and R posterior shoulder pain. no diarrhea. no CP or SOB Objective: Vital Signs: Last Vital Signs Temp Pulse Resp BP Pulse Ox 98.1 F 65 20 109/64 92 L 08/04/19 14:00 08/04/19 14:00 08/04/19 14:00 08/04/19 14:00 08/04/19 08:16 Laboratory Results - last 24 hr 08/03/19 08/04/19 08/04/19 19:00 06:00 06:00 WBC 4.1 RBC 2.63 L Hgb 8.0 L Hct 24.6 L MCV 93.6 MCH 30.5 MCHC 32.6 RDW 17.1 H Plt Count 173 MPV 8.4 PTT (Actin FS) 71.1 H Cancelled 08/04/19 10:25 WBC RBC Hgb Hct MCV MCH MCHC RDW Plt Count MPV PTT (Actin FS) 48.8 H Physical Exam: NAD Cv: RRR. no MRG Lungs: CTAB MS: TTP over lumbosacral junctionat mid line. TTP over R paraspinal muscles . no TTP over spine in anyother place Imaging: echo , and CT reports reviewed. MRI report 07/25 reviewed. Assessment/Plan: 59 y/o man with h/o ESRD, EtOH abuse, CHF, HTN, CKD, COPD, and other medical problems who presented with back painand was found to have discitis 1- L5-S1 discitis. with bacteremia - echo with no vegetations. reepat blood cx neg to date - cont Abx for now. total of at least 6 weeks. will need ID and surgical f/u before stopping Abx. - possible further imaging towards the end of Abx. - No surgical procedrue is indicated nor needed. d/w Dr. Louis - cont oxy , dc tramadol 2- A flutter: now controlled - cont cardizem and coreg - dc heparin gtt and start eliquis 3- ESRD: cont HD MWf 4-HTN : cont HZN, BB, and CCB 5- dispo : tomorrow, arrangements can be made for Home vs NH Abx . Visit type - Emergency Visit Emergency Visit: Yes ED Registration Date: 07/28/19 Care time: The patient presented to the Emergency Department on the above date and was hospitalized for further evaluation of their emergent condition. - New Patient This patient is new to me today: Yes Date on this admission: 08/04/19 - Critical Care Critical Care patient: No
[2019-08-04] MEDS: APIXABAN 5 MG TABLET PO SCH (21:58)
[2019-08-04] MEDS: LIDOCAINE PATCH REMOVAL MC SCH (21:58)
[2019-08-04] MEDS: oxyCODONE HCL 5 MG TABLET PO PRN (21:59)
[2019-08-04] MEDS ORDERED: ALBUTEROL SO4 0.083% IH SOL 2.5 MG/3 ML VIAL.NEB. NEB ONE (22:31)
[2019-08-05] MEDS ORDERED: PIPERACILLIN/TAZOBACTAM 2.25 GM VIAL IVPB ONE ×2 (01:08→09:07)
[2019-08-05] MEDS ORDERED: DEXTROSE 5%-WATER - 50 ML IVPB ONE ×2 (01:08→09:08)
[2019-08-05] MEDS: PIPERACILLIN/TAZOB 2.25 GM 2.25 GM in DEXTROSE 5%-WATER - 50 ML IVPB SCH ×2 (01:32→09:40)
[2019-08-05] MEDS: FUROSEMIDE 40 MG TABLET (FP) PO SCH ×2 (06:25→13:34)
[2019-08-05 07:58] VITALS: BP 134/77; TEMP 98
[2019-08-05] MEDS: CALCIUM ACETATE 667 MG CAPSULE (FP) PO SCH ×2 (08:13→11:55)
[2019-08-05] MEDS: TAMSULOSIN HCL 0.4 MG CAP PO SCH (08:13)
[2019-08-05] MEDS: oxyCODONE HCL 5 MG TABLET PO PRN (08:26)
[2019-08-05] MEDS: DOCUSATE SODIUM 100 MG CAPSULE (FP) PO SCH (09:40)
[2019-08-05] MEDS: hydrALAZINE HCL 10 MG TABLET PO SCH (09:41)
[2019-08-05] MEDS: CALCITRIOL 0.25 MCG CAPSULE (FP) PO SCH (09:41)
[2019-08-05] MEDS: CARVEDILOL 25 MG TABLET (FP) PO SCH (09:41)
[2019-08-05] MEDS: amLODIPine BESYLATE 10 MG TABLET (FP) PO SCH (09:41)
[2019-08-05] MEDS: APIXABAN 5 MG TABLET PO SCH (09:41)
[2019-08-05] MEDS: PANTOPRAZOLE 40 MG TABLET (FP) PO SCH (09:41)
[2019-08-05] MEDS: LIDOCAINE 5% TOPICAL PATCH TP SCH (09:41)
[2019-08-05] MEDS: METHYL SALICYLATE/MENTHOL OINT 30 GM TUBE TP SCH (09:42)
[2019-08-05] MEDS: POLYETHYLENE GLYCOL 3350 119 GM BTL PO SCH (09:49)
--- NOTE | 2019-08-05 10:12 | PN ---
Progress Note (short form) - Note Progress Note: s: no chest pain, palps, dizziness, dyspnea Current Medications Generic Name Dose Route Start Last Admin Trade Name Freq PRN Reason Stop Dose Admin Amlodipine Besylate 10 mg 07/29/19 10:00 08/05/19 09:41 Norvasc - PO 10 mg DAILY WANDA Administration Apixaban 5 mg 08/04/19 22:00 08/05/19 09:41 Eliquis - PO 5 mg BID WANDA Administration Calcitriol 0.25 mcg 07/29/19 10:00 08/05/19 09:41 Rocaltrol - PO 0.25 mcg DAILY WANDA Administration Calcium Acetate 667 mg 07/29/19 08:00 08/05/19 08:13 Phoslo - PO 667 mg TIDCM WANDA Administration Carvedilol 25 mg 07/29/19 10:00 08/05/19 09:41 Coreg - PO 25 mg BID WANDA Administration Diltiazem HCl 240 mg 07/30/19 10:00 08/05/19 09:40 Cardizem Cd - PO 240 mg DAILY WANDA Administration Docusate Sodium 100 mg 08/02/19 10:00 08/05/19 09:40 Colace - PO 100 mg BID WANDA Administration Furosemide 40 mg 07/29/19 06:00 08/05/19 06:25 Lasix - PO 40 mg BIDLASIX WANDA Administration Hydralazine HCl 10 mg 07/29/19 10:00 08/05/19 09:41 Apresoline - PO 10 mg BID WANDA Administration Piperacillin Sod/Tazobactam 50 mls @ 100 mls/hr 07/29/19 18:00 08/05/19 09:40 Sod 2.25 gm/ Dextrose IVPB 100 mls/hr Q8H-IV WANDA Administration Protocol Vancomycin HCl 1,000 mg in 250 mls @ 166.667 mls/hr 08/02/19 12:00 08/04/19 11:40 Vancomycin (Pre-Docked) IVPB 166.667 mls/hr MoWeFr@1200 WANDA Administration Lidocaine 1 patch 07/30/19 10:00 08/05/19 09:41 Lidoderm Patch - TP 1 patch DAILY WANDA Administration Methyl Salicylate 1 applic 08/02/19 10:00 08/05/19 09:42 Raul-Maharaj - TP 1 applic BID WANDA Administration Miscellaneous 1 each 07/30/19 22:00 08/04/19 21:58 Lidoderm Patch Removal MC 1 each DAILY@2200 WANDA Administration Oxycodone HCl 10 mg 08/02/19 09:43 08/05/19 08:26 Roxicodone - PO 5 mg Q6H PRN Administration PAIN LEVEL 7 - 10 Pantoprazole Sodium 40 mg 07/30/19 10:00 08/05/19 09:41 Protonix - PO 40 mg DAILY WANDA Administration Polyethylene Glycol 17 gm 08/02/19 10:00 08/05/19 09:49 Miralax (For Daily Use) - PO Not Given DAILY WANDA Tamsulosin HCl 0.4 mg 07/29/19 08:30 08/05/19 08:13 Flomax - PO 0.4 mg DAILY@0830 WANDA Administration Vital Signs Period Temp Pulse Resp BP Sys/Cannon Pulse Ox Last 24 Hr 97.7 F-98.3 F 65-90 20-20 109-134/51-81 92 Constitutional: Yes: Well Nourished, No Distress, Calm Cardiovascular: Yes: Pulse Irregular, S1, S2. No: Gallop, Murmur Respiratory: Yes: Regular, CTA Bilaterally. No: Accessory Muscle Use, Rales, Wheezes Extremities: No: Cold Edema: No Neurological: Yes: Alert, Oriented Psychiatric: No: Agitated CBC, BMP 08/04/19 06:00 08/03/19 10:30 Assessment/Plan echo 10/2018 nl LV/RV function, mild MR, mild TR, mild AR, mild dilation of ao root mibi 08/2017 nl EF, no ischemia EKG: aflutter, rate controlled, no ischemic changes echo 07/2019 low normal LV function EF 50-55%, nl RV function, LA/RA mildly dilated, mod MR, mod TR, PASP at least 43 mmHg, mild AR CXR: no congestion A/P: 59M h/o EtOH abuse, CHF, HTN, CKD, COPD, aflutter, esrd on hd here with back pain. aflutter: -rate controlled: cont carvedilol, diltiazem -chadsvasc warrants ac. started eliquis 5 bid here chronic diastolic chf: -was mildly volume-up here with JVD and orthopnea relieved by NC oxygen. wt stable - low normal LV function on echo here -lasix and UF volume removal per renal (limited by muscle cramping per pt) back pain, discitis: -being evaluated by ID, spine/neurosurgery -6 wks abx planned NSVT: -brief run. -EF preserved 10/27--will rpt echo to confirm no change given mult rf's for systolic dysfunction -lytes stable--routine repletion levels -no further episodes - low normal LV function on echo copd: -no current sx's esrd: -hd per renal HTN: - controlled - cont current meds HLD: - cont statin
--- NOTE | 2019-08-05 12:15 | PN ---
Progress Note, Physician History of Present Illness: stable no new issues back pain patient looks good - Current Medication List Current Medications: Active Medications Amlodipine Besylate (Norvasc -) 10 mg PO DAILY [facility] Last Admin: 08/05/19 09:41 Dose: 10 mg Apixaban (Eliquis -) 5 mg PO BID [facility] Last Admin: 08/05/19 09:41 Dose: 5 mg Calcitriol (Rocaltrol -) 0.25 mcg PO DAILY [facility] Last Admin: 08/05/19 09:41 Dose: 0.25 mcg Calcium Acetate (Phoslo -) 667 mg PO TIDCM [facility] Last Admin: 08/05/19 11:55 Dose: 667 mg Carvedilol (Coreg -) 25 mg PO BID [facility] Last Admin: 08/05/19 09:41 Dose: 25 mg Diltiazem HCl (Cardizem Cd -) 240 mg PO DAILY [facility] Last Admin: 08/05/19 09:40 Dose: 240 mg Docusate Sodium (Colace -) 100 mg PO BID [facility] Last Admin: 08/05/19 09:40 Dose: 100 mg Furosemide (Lasix -) 40 mg PO BIDLASIX [facility] Last Admin: 08/05/19 06:25 Dose: 40 mg Hydralazine HCl (Apresoline -) 10 mg PO BID [facility] Last Admin: 08/05/19 09:41 Dose: 10 mg Piperacillin Sod/Tazobactam (Sod 2.25 gm/ Dextrose) 50 mls @ 100 mls/hr IVPB Q8H-IV [facility]; Protocol Last Admin: 08/05/19 09:40 Dose: 100 mls/hr Vancomycin HCl (Vancomycin (Pre-Docked)) 1,000 mg in 250 mls @ 166.667 mls/hr IVPB MoWeFr@1200 [facility] Last Admin: 08/04/19 11:40 Dose: 166.667 mls/hr Lidocaine (Lidoderm Patch -) 1 patch TP DAILY [facility] Last Admin: 08/05/19 09:41 Dose: 1 patch Methyl Salicylate (Raul-Maharaj -) 1 applic TP BID [facility] Last Admin: 08/05/19 09:42 Dose: 1 applic Miscellaneous (Lidoderm Patch Removal) 1 each MC DAILY@2200 [facility] Last Admin: 08/04/19 21:58 Dose: 1 each Oxycodone HCl (Roxicodone -) 10 mg PO Q6H PRN PRN Reason: PAIN LEVEL 7 - 10 Last Admin: 08/05/19 08:26 Dose: 5 mg Pantoprazole Sodium (Protonix -) 40 mg PO DAILY [facility] Last Admin: 08/05/19 09:41 Dose: 40 mg Polyethylene Glycol (Miralax (For Daily Use) -) 17 gm PO DAILY [facility] Last Admin: 08/05/19 09:49 Dose: Not Given Tamsulosin HCl (Flomax -) 0.4 mg PO DAILY@0830 [facility] Last Admin: 08/05/19 08:13 Dose: 0.4 mg - Objective Vital Signs: Vital Signs Temperature 98.0 F 08/05/19 07:56 Pulse Rate 90 08/05/19 07:56 Respiratory Rate 20 08/05/19 07:58 Blood Pressure 134/77 08/05/19 07:56 O2 Sat by Pulse Oximetry (%) 92 L 08/05/19 07:58 Constitutional: Yes: No Distress, Calm Cardiovascular: Yes: S1, S2 Respiratory: Yes: Regular, CTA Bilaterally Gastrointestinal: Yes: Normal Bowel Sounds, Soft Musculoskeletal: Yes: WNL Extremities: Yes: WNL Neurological: Yes: Alert, Oriented Psychiatric: Yes: Alert, Oriented Labs: CBC, BMP 08/04/19 06:00 08/03/19 10:30 INR, PTT INR 1.32 (0.83-1.09) H 07/28/19 21:50 Assessment/Plan Problem List - Problems (1) Discitis of lumbar region Code(s): M46.46 - DISCITIS, UNSPECIFIED, LUMBAR REGION (2) ESRD on hemodialysis Code(s): N18.6 - END STAGE RENAL DISEASE; Z99.2 - DEPENDENCE ON RENAL DIALYSIS (3) BPH (benign prostatic hyperplasia) Code(s): N40.0 - BENIGN PROSTATIC HYPERPLASIA WITHOUT LOWER URINRY TRACT SYMP (4) Gastric ulcer Code(s): K25.9 - GASTRIC ULCER, UNSP ACUTE OR CHRONIC, W/O HEMOR OR PERF (5) Prophylactic measure Code(s): Z29.9 - ENCOUNTER FOR PROPHYLACTIC MEASURES, UNSPECIFIED (6) CHF (congestive heart failure) Code(s): I50.9 - HEART FAILURE, UNSPECIFIED Qualifiers: Heart failure chronicity: chronic (7) COPD (chronic obstructive pulmonary disease) Code(s): J44.9 - CHRONIC OBSTRUCTIVE PULMONARY DISEASE, UNSPECIFIED (8) ESRD (end stage renal disease) Code(s): N18.6 - END STAGE RENAL DISEASE (9) HTN (hypertension) Code(s): I10 - ESSENTIAL (PRIMARY) HYPERTENSION (10) Hyperlipidemia Code(s): E78.5 - HYPERLIPIDEMIA, UNSPECIFIED Qualifiers: Hyperlipidemia type: pure hypercholesterolemia Qualified Code(s): E78.00 - Pure hypercholesterolemia, unspecified; E78.0 - Pure hypercholesterolemia (11) Low back pain Code(s): M54.5 - LOW BACK PAIN Qualifiers: Chronicity: acute Back pain laterality: unspecified Sciatica presence: without sciatica Qualified Code(s): M54.5 - Low back pain (12) Atrial flutter Code(s): I48.92 - UNSPECIFIED ATRIAL FLUTTER Qualifiers: Atrial flutter type: unspecified Qualified Code(s): I48.92 - plan patient should be given the following as the patient is a dialysis patient start with vanco 1000 mg vanco during dialysis and check the level and adjust the vanco dose to keep the level between 15 to 20 2 give ceftazidine 2-2-2 during dialysis follow esr,cbc bmp and crp patient needs another 6 weeks of abx after that can follow up with neurosurgeon
--- NOTE | 2019-08-05 14:11 | DS ---
Physical Exam: SUBJECTIVE: Patient seen and examined Patient is a 59 year old male with a past medical history of ESRD (HD M/W/F), CHF, COPD (on 3L O2 during dialysis), HTN, BPH, gastric ulcer who presents with osteomyelitis/discitis seen on outpatient lumbar spine MRI done at [facility]. Patient was called with results of MRI suggesting discitis/osteomyelitis in L5 and S1 and told to come to ED to receive IV abx and see Dr. Louis. Patient was also being evaluated for possible spine surgery with Dr. Soriano, however, patient will follow up with neurosurgery once antibiotics are completed. Patient was noted to have a flutter on EKG and his home Cardizem was increased from Cardizem 120mg to Cardizem 240mg. He was started on Eliquis 5mg twice per day. Patient to be sent home with supplemental oxygen @ 2 liters as he reports shortness of breath with ambulation and oxygen levels drop to 86% with physical exertion. imaging: lumbar spine ct w/o contrast 08/01/19: L5-S1 disc space narrowing with irregular endplates. sclerosed L5 vertebral body , superior aspect of s1 associated with paraspinal inflammatory changes with induraiton of paraspinal fat concerning for the discitis. lumbar spine mri 07/25/19: edema in the bone marrow of L5-S1 vertebrae with irregular contours of the endplate with bony erosions compatible septic discitis. possble underlying infectious process such as discitis and osteomyelitis is strongly suggested. Vital Signs Period Temp Pulse Resp BP Sys/Cannon Pulse Ox Last 24 Hr 97.7 F-98.3 F 66-90 20-20 110-134/51-81 92 PHYSICAL EXAM GENERAL: The patient is awake, alert, and fully oriented, in no acute distress. HEAD: Normal with no signs of trauma. EYES: PERRL, extraocular movements intact, sclera anicteric, conjunctiva clear. No ptosis. ENT: Ears normal, nares patent, oropharynx clear without exudates, moist mucous membranes. NECK: Trachea midline, full range of motion, supple. LUNGS: diminished bilaterally, incentive spirometer encouraged HEART: nsr on surveillance system monitor ABDOMEN: Soft, nontender, nondistended EXTREMITIES: no edema. left upper arm +bruit and thrill NEUROLOGICAL: Normal speech, gait not observed. PSYCH: Normal mood, normal affect. SKIN: Warm, dry, normal turgor, no rashes or lesions noted LABS HOSPITAL COURSE: Date of Admission:07/28/19 Date of Discharge: 08/05/19 Minutes to complete discharge: 45 Discharge Summary Problems reviewed: Yes Reason For Visit: NEW ONSET ATRIAL FLUTTER, DISCITIS, OSTEOMYELITIS Current Active Problems Atrial flutter (Acute) BPH (benign prostatic hyperplasia) (Acute) Discitis of lumbar region (Acute) ESRD on hemodialysis (Acute) Gastric ulcer (Acute) Gram-positive cocci bacteremia (Acute) Low back pain (Acute) NSVT (nonsustained ventricular tachycardia) (Acute) Prophylactic measure (Acute) Condition: Good - Instructions Diet, Activity, Other Instructions: Mr. Aguilar: You will be discharged and continue treatment with antibiotics intravenously along with your dialysis. Dr. Louis will arrange this with dialysis. We will be sending you home on oxygen therapy as your oxygen levels were low during your hospital stay. Follow ups: Please follow up with the dental financial coordinator that saw you here for further workup and and repeat echocardiogram. Please follow up with your primary care doctor within 3-5 days after discharge. Pain management: Please use the Lidocaine patches, they can be purchased at any retail pharmacy Please follow up with the neurosurgeon once you complete the antibiotics for possible surgical interventions. Medications: Continue your home medications with the following changes: Cardizem has been increased to Cardizem 240mg ONCE per day Eliquis 5mg TWICE has been added. Eliquis is a blood thinner that is added to PREVENT strokes when patient's have irregular heart rates. Thank you for allowing us to care for you Referrals: Jr Cheek MD [Primary Care Provider] - Ed Jean MD [Staff Physician] - 1 Week Disposition: HOME - Home Medications Comprehensive Discharge Medication List: Ambulatory Orders Calcitriol [Calcitriol -] 0.25 mcg PO DAILY 03/19/18 Carvedilol [Coreg -] 25 mg PO BID 03/19/18 Simvastatin 20 mg PO HS 03/19/18 Tamsulosin HCl [Flomax] 0.4 mg PO HS 03/19/18 Hydralazine HCl 10 mg PO BID 10/12/18 Calcium Acetate [Phoslo -] 667 mg PO TIDCM #45 capsule 10/15/18 Sodium Bicarbonate - 650 mg PO TID #90 tablet 12/31/18 Furosemide [Lasix -] 40 mg PO BID 03/15/19 Amlodipine Besylate [Norvasc -] 10 mg PO DAILY 07/29/19 Omeprazole 40 mg PO DAILY 07/29/19 Tramadol HCl 50 mg PO PRN PRN 07/29/19 Apixaban [Eliquis] 5 mg PO BID #60 tablet 08/05/19 Diltiazem Cd [Cardizem Cd -] 240 mg PO DAILY #120 cap.cd.24h 08/05/19 Diltiazem Cd [Cardizem Cd -] 240 mg PO DAILY #90 cap.cd.24h 08/05/19 Lidocaine 5% Patch [Lidoderm -] 1 patch TP DAILY patch 08/05/19 Problem List - Problems (1) Discitis of lumbar region Assessment/Plan: L12 and L5S1 discitis and instability on MRI disc degeneration changes /no paraspinal collection or clear evidence of osteomyelitis per neuro note ID following and recommended Vancomycin and ceftazidine during dialysis Code(s): M46.46 - DISCITIS, UNSPECIFIED, LUMBAR REGION (2) ESRD on hemodialysis Assessment/Plan: Hd per renal via left arm fistula Code(s): N18.6 - END STAGE RENAL DISEASE; Z99.2 - DEPENDENCE ON RENAL DIALYSIS (3) Gastric ulcer Assessment/Plan: on protonix Code(s): K25.9 - GASTRIC ULCER, UNSP ACUTE OR CHRONIC, W/O HEMOR OR PERF (4) Low back pain Assessment/Plan: bengay, lidoderm patches and physical therapy surgery following Code(s): M54.5 - LOW BACK PAIN Qualifiers: Chronicity: acute Back pain laterality: unspecified Sciatica presence: without sciatica Qualified Code(s): M54.5 - Low back pain (5) HTN (hypertension) Assessment/Plan: c/w hydralazine, norvasc Code(s): I10 - ESSENTIAL (PRIMARY) HYPERTENSION (6) Atrial flutter Assessment/Plan: rate improved now c/w coreg c/w tele Cardizem 240mg cd and eliquis 5mg bid Code(s): I48.92 - UNSPECIFIED ATRIAL FLUTTER Qualifiers: Atrial flutter type: unspecified Qualified Code(s): I48.92 - Unspecified atrial flutter (7) BPH (benign prostatic hyperplasia) Assessment/Plan: continue flomax Code(s): N40.0 - BENIGN PROSTATIC HYPERPLASIA WITHOUT LOWER URINRY TRACT SYMP (8) Gram-positive cocci bacteremia Assessment/Plan: GPC growing in one set of BC. repeat set negative for growth. patient being treated with Vancomycin and Ceftazidine with dialysis Code(s): R78.81 - BACTEREMIA (9) NSVT (nonsustained ventricular tachycardia) Assessment/Plan: brief run on tele noted echo shows low LV function cardiology following patient for a repeat echo as an outpatient Code(s): I47.2 - VENTRICULAR TACHYCARDIA (10) Shortness of breath Assessment/Plan: will require home oxygen @ 2 liters Code(s): R06.02 - SHORTNESS OF BREATH This patient is new to me today: No Emergency Visit: Yes ED Registration Date: 07/28/19 Care time: The patient presented to the Emergency Department on the above date and was hospitalized for further evaluation of their emergent condition. Critical Care patient: No - Discharge Referral Referred to [facility] Med P.C.: No
[2019-08-05 14:45] VITALS: PULSE 62
[2019-08-05 14:52] VITALS: BMI 29.4
--- NOTE | 2019-08-05 15:17 | PN ---
Progress Note, Physician History of Present Illness: Pt seen and examined at bedside. He is awake and alert. He is going home today. - Current Medication List Current Medications: Active Medications Amlodipine Besylate (Norvasc -) 10 mg PO DAILY [facility] Last Admin: 08/05/19 09:41 Dose: 10 mg Apixaban (Eliquis -) 5 mg PO BID [facility] Last Admin: 08/05/19 09:41 Dose: 5 mg Calcitriol (Rocaltrol -) 0.25 mcg PO DAILY [facility] Last Admin: 08/05/19 09:41 Dose: 0.25 mcg Calcium Acetate (Phoslo -) 667 mg PO TIDCM [facility] Last Admin: 08/05/19 11:55 Dose: 667 mg Carvedilol (Coreg -) 25 mg PO BID [facility] Last Admin: 08/05/19 09:41 Dose: 25 mg Diltiazem HCl (Cardizem Cd -) 240 mg PO DAILY [facility] Last Admin: 08/05/19 09:40 Dose: 240 mg Docusate Sodium (Colace -) 100 mg PO BID [facility] Last Admin: 08/05/19 09:40 Dose: 100 mg Furosemide (Lasix -) 40 mg PO BIDLASIX [facility] Last Admin: 08/05/19 13:34 Dose: 40 mg Hydralazine HCl (Apresoline -) 10 mg PO BID [facility] Last Admin: 08/05/19 09:41 Dose: 10 mg Piperacillin Sod/Tazobactam (Sod 2.25 gm/ Dextrose) 50 mls @ 100 mls/hr IVPB Q8H-IV [facility]; Protocol Last Admin: 08/05/19 09:40 Dose: 100 mls/hr Vancomycin HCl (Vancomycin (Pre-Docked)) 1,000 mg in 250 mls @ 166.667 mls/hr IVPB MoWeFr@1200 [facility] Last Admin: 08/04/19 11:40 Dose: 166.667 mls/hr Lidocaine (Lidoderm Patch -) 1 patch TP DAILY [facility] Last Admin: 08/05/19 09:41 Dose: 1 patch Methyl Salicylate (Raul-Maharaj -) 1 applic TP BID [facility] Last Admin: 08/05/19 09:42 Dose: 1 applic Miscellaneous (Lidoderm Patch Removal) 1 each MC DAILY@2200 [facility] Last Admin: 08/04/19 21:58 Dose: 1 each Oxycodone HCl (Roxicodone -) 10 mg PO Q6H PRN PRN Reason: PAIN LEVEL 7 - 10 Last Admin: 08/05/19 08:26 Dose: 5 mg Pantoprazole Sodium (Protonix -) 40 mg PO DAILY [facility] Last Admin: 08/05/19 09:41 Dose: 40 mg Polyethylene Glycol (Miralax (For Daily Use) -) 17 gm PO DAILY [facility] Last Admin: 08/05/19 09:49 Dose: Not Given Tamsulosin HCl (Flomax -) 0.4 mg PO DAILY@0830 [facility] Last Admin: 08/05/19 08:13 Dose: 0.4 mg - Objective Vital Signs: Vital Signs Temperature 98.0 F 08/05/19 07:56 Pulse Rate 62 08/05/19 14:30 Respiratory Rate 20 08/05/19 07:58 Blood Pressure 134/77 08/05/19 07:56 O2 Sat by Pulse Oximetry (%) 92 L 08/05/19 14:30 Constitutional: Yes: Calm Eyes: Yes: Conjunctiva Clear HENT: Yes: Atraumatic Neck: Yes: Supple Cardiovascular: Yes: S1, S2 Respiratory: Yes: On Nasal O2 Gastrointestinal: Yes: Soft Genitourinary: Yes: WNL Musculoskeletal: Yes: Back Pain Edema: No Neurological: Yes: Oriented Psychiatric: Yes: Oriented Labs: CBC, BMP 08/04/19 06:00 08/03/19 10:30 INR, PTT INR 1.32 (0.83-1.09) H 07/28/19 21:50 Problem List - Problems (1) Low back pain Code(s): M54.5 - LOW BACK PAIN Qualifiers: Chronicity: acute Back pain laterality: unspecified Sciatica presence: without sciatica Qualified Code(s): M54.5 - Low back pain (2) Anemia Code(s): D64.9 - ANEMIA, UNSPECIFIED Qualifiers: Anemia type: due to chronic kidney disease Chronic kidney disease stage: stage 4 (severe) Qualified Code(s): N18.4 - Chronic kidney disease, stage 4 ( severe); D63.1 - Anemia in chronic kidney disease (3) ESRD (end stage renal disease) Code(s): N18.6 - END STAGE RENAL DISEASE Assessment/Plan Current Medications Generic Name Dose Route Start Last Admin Trade Name Freq PRN Reason Stop Dose Admin Amlodipine Besylate 10 mg 07/29/19 10:00 08/05/19 09:41 Norvasc - PO 10 mg DAILY WANDA Administration Apixaban 5 mg 08/04/19 22:00 08/05/19 09:41 Eliquis - PO 5 mg BID WANDA Administration Calcitriol 0.25 mcg 07/29/19 10:00 08/05/19 09:41 Rocaltrol - PO 0.25 mcg DAILY WANDA Administration Calcium Acetate 667 mg 07/29/19 08:00 08/05/19 11:55 Phoslo - PO 667 mg TIDCM WANDA Administration Carvedilol 25 mg 07/29/19 10:00 08/05/19 09:41 Coreg - PO 25 mg BID WANDA Administration Diltiazem HCl 240 mg 07/30/19 10:00 08/05/19 09:40 Cardizem Cd - PO 240 mg DAILY WANDA Administration Docusate Sodium 100 mg 08/02/19 10:00 08/05/19 09:40 Colace - PO 100 mg BID WANDA Administration Furosemide 40 mg 07/29/19 06:00 08/05/19 13:34 Lasix - PO 40 mg BIDLASIX WANDA Administration Hydralazine HCl 10 mg 07/29/19 10:00 08/05/19 09:41 Apresoline - PO 10 mg BID WANDA Administration Piperacillin Sod/Tazobactam 50 mls @ 100 mls/hr 07/29/19 18:00 08/05/19 09:40 Sod 2.25 gm/ Dextrose IVPB 100 mls/hr Q8H-IV WANDA Administration Protocol Vancomycin HCl 1,000 mg in 250 mls @ 166.667 mls/hr 08/02/19 12:00 08/04/19 11:40 Vancomycin (Pre-Docked) IVPB 166.667 mls/hr MoWeFr@1200 WANDA Administration Lidocaine 1 patch 07/30/19 10:00 08/05/19 09:41 Lidoderm Patch - TP 1 patch DAILY WANDA Administration Methyl Salicylate 1 applic 08/02/19 10:00 08/05/19 09:42 Raul-Maharaj - TP 1 applic BID WANDA Administration Miscellaneous 1 each 07/30/19 22:00 08/04/19 21:58 Lidoderm Patch Removal MC 1 each DAILY@2200 WANDA Administration Oxycodone HCl 10 mg 08/02/19 09:43 08/05/19 08:26 Roxicodone - PO 5 mg Q6H PRN Administration PAIN LEVEL 7 - 10 Pantoprazole Sodium 40 mg 07/30/19 10:00 08/05/19 09:41 Protonix - PO 40 mg DAILY WANDA Administration Polyethylene Glycol 17 gm 08/02/19 10:00 08/05/19 09:49 Miralax (For Daily Use) - PO Not Given DAILY WANDA Tamsulosin HCl 0.4 mg 07/29/19 08:30 08/05/19 08:13 Flomax - PO 0.4 mg DAILY@0830 WANDA Administration Impression 1. ESRD 2. a-flutter 3. diskitis/osteomyelitis L5/S1 4. htn 5. hld Plan - HD set up as outpt tomorrow - he does not want HD today - abx per ID - renal diet - rx 3 1/2 abf 450 2 k bath heparin 3500 loading, 98.5 dw, epogen 6000 units, hectorol 2.5 mcg
== END 2019-08-05 15:52 | disposition home or self-care (01) | DRG 551 ==
LOC: JER 20:20 → JERBED 21:03 → J4W 07-29 19:41
PROVIDERS: ADMIT Internal Medicine; ATTEND Nurse Practitioner Family
PROC: 5A1D70Z Performance of Urinary Filtration, Intermittent, Less than 6 Hours Per Day (ICD-10-PCS; principal; 2019-07-30)
PROC: 5A1D70Z Performance of Urinary Filtration, Intermittent, Less than 6 Hours Per Day (ICD-10-PCS; 2019-08-01)
PROC: 5A1D70Z Performance of Urinary Filtration, Intermittent, Less than 6 Hours Per Day (ICD-10-PCS; 2019-08-03)
DX: M46.47 Discitis, unspecified, lumbosacral region (principal); N18.6 End stage renal disease; E46 Unspecified protein-calorie malnutrition; I42.8 Other cardiomyopathies; I48.92 Unspecified atrial flutter; I13.2 Hypertensive heart and chronic kidney disease with heart failure and with stage 5 chronic kidney disease, or end stage renal disease; I50.32 Chronic diastolic (congestive) heart failure; I47.2 Ventricular tachycardia; R78.81 Bacteremia; M46.26 Osteomyelitis of vertebra, lumbar region; I48.91 Unspecified atrial fibrillation; J44.9 Chronic obstructive pulmonary disease, unspecified; K25.9 Gastric ulcer, unspecified as acute or chronic, without hemorrhage or perforation; N40.0 Benign prostatic hyperplasia without lower urinary tract symptoms; E78.5 Hyperlipidemia, unspecified; K42.9 Umbilical hernia without obstruction or gangrene; F17.210 Nicotine dependence, cigarettes, uncomplicated; E88.09 Other disorders of plasma-protein metabolism, not elsewhere classified; Z68.29 Body mass index [BMI] 29.0-29.9, adult; D64.9 Anemia, unspecified; I44.39 Other atrioventricular block; R94.31 Abnormal electrocardiogram [ECG] [EKG]; M54.5 Low back pain; Z99.2 Dependence on renal dialysis; Z87.11 Personal history of peptic ulcer disease; Z99.81 Dependence on supplemental oxygen
CPT/HCPCS: 36415; 71045-TC-FY; 72131-TC; 72148-TC; 80048; 80053; 82565; 83540; 83550; 83735; 84484; 84520; 85025; 85027; 85610; 85651; 85730; 86140; 86803; 86850; 86900; 86901; 87040; 87077; 87340; 93005; 93010; 93306-TC; 94010; 94640; 94761; 97116-GP; 97161-GP; 99285-25; G0480; J0885; J1644

== ENCOUNTER 2020-06-15 04:14 | Inpatient (IN) | payer OTHER, BC ==
[2020-06-15] MEDS ORDERED: CEFAZOLIN 2 GM in DEXTROSE 5%-WATER - 100 ML IVPB ONE (06:24)
[2020-06-15] MEDS ORDERED: VANCOMYCIN 1 GRAM (PRE-DOCKED) 1,000 MG/250 ML BAG IVPB ONE (06:24)
[2020-06-15] MEDS ORDERED: DEXAMETHASONE SOD PHOSPHATE 4 MG/1 ML VIAL ONE (07:20)
[2020-06-15] MEDS ORDERED: PROPOFOL 20 ML ONE (07:20)
[2020-06-15] MEDS ORDERED: fentaNYL CITRATE 250 MCG/5 ML VIAL ONE (07:20)
[2020-06-15] MEDS ORDERED: ONDANSETRON 4 MG/2 ML VIAL ONE (07:20)
[2020-06-15] MEDS ORDERED: ROCURONIUM BROMIDE 50 MG/5 ML SYRINGE ONE ×2 (07:21→09:37)
[2020-06-15] MEDS ORDERED: SUCCINYLCHOLINE CHLORIDE 200 MG/10 ML SYRINGE ONE (07:21)
[2020-06-15] MEDS ORDERED: MIDAZOLAM HCL 2 MG/2 ML SINGLE DOSE VIAL ONE ×2 (07:21→09:28)
[2020-06-15] MEDS ORDERED: LIDOCAINE 1%/EPI 1:100000 (50 ML MULTI DOSE VIAL) ONE (07:41)
[2020-06-15] MEDS ORDERED: THROMBIN (BOVINE) 5,000 UNIT VIAL TP ONE ×2 (07:41→09:15)
[2020-06-15] MEDS ORDERED: GENTAMICIN SO4 80 MG/2 ML VIAL ONE (07:41)
[2020-06-15] MEDS ORDERED: VANCOMYCIN 1,000 MG VIAL (RESTRICTED TO ID ONLY) ONE ×2 (07:41→08:57)
[2020-06-15] MEDS ORDERED: VANCOMYCIN 1,000 MG VIAL (RESTRICTED TO ID ONLY) IVPB ONE (08:40)
[2020-06-15] MEDS ORDERED: ceFAZolin SODIUM 1 GM VIAL IVPB ONE (08:41)
[2020-06-15] MEDS ORDERED: ceFAZolin SODIUM 1 GM VIAL ONE ×3 (08:57→20:15)
[2020-06-15] MEDS ORDERED: EPHEDRINE SULFATE/0.9% NACL/PF 50 MG/10 ML SYRINGE NR ONE (08:59)
[2020-06-15] MEDS ORDERED: LIDOCAINE 1%/EPI 1:100000 (50 ML MULTI DOSE VIAL) INF ONE (09:01)
[2020-06-15] MEDS ORDERED: GELATIN, ABSORBABLE 100 EACH SPONGE TP ONE (09:15)
[2020-06-15] MEDS ORDERED: PHENYLEPHRINE HCL 10 MG/1 ML SINGLE DOSE VIAL ONE ×2 (09:20→12:09)
[2020-06-15] MEDS ORDERED: BACITRACIN 50,000 UNITS VIAL TP ONE (10:00)
[2020-06-15] MEDS ORDERED: GENTAMICIN SO4 80 MG/2 ML VIAL IVPB ONE (10:00)
[2020-06-15] MEDS ORDERED: HYDROGEN PEROXIDE 473 ML PO ONE (10:00)
[2020-06-15] MEDS ORDERED: EPINEPHrine 1:10,000 (P-F SYR) 1 MG/10 ML DISP.SYRIN ONE (11:03)
[2020-06-15] MEDS ORDERED: BUPIVACAINE LIPOSOME/PF (EXPAREL) 266 MG/20 ML VIAL NR ONE (11:58)
[2020-06-15] MEDS ORDERED: BUPIVACAINE HCL/PF 0.5% (5 MG/ML) 30 ML VIAL IJ ONE (11:58)
[2020-06-15] MEDS ORDERED: NEOSTIGMINE METHYLSULFATE 0.5 MG/1 ML - 10 ML MDV ONE (12:03)
[2020-06-15] MEDS ORDERED: GLYCOPYRROLATE 0.2 MG/1 ML VIAL ONE (12:08)
[2020-06-15] MEDS ORDERED: CALCIUM CHLORIDE 1 GM/10 ML *DISP.SYRIN ONE (12:38)
[2020-06-15] MEDS ORDERED: ONDANSETRON 4 MG/2 ML VIAL IVPUSH PRN ×2 (13:01→13:05)
[2020-06-15] MEDS ORDERED: diphenhydrAMINE HCL 25 MG CAPSULE (FP) PO PRN (13:05)
[2020-06-15] MEDS ORDERED: SODIUM CHLORIDE 1,000 ML IV SCH (13:15)
[2020-06-15] MEDS ORDERED: LACTATED RINGERS SOLUTION 1,000 ML/1,000 ML INFUS.BAG IV SCH (13:15)
[2020-06-15] MEDS ORDERED: oxyCODONE HCL 5 MG TABLET PO PRN (13:36)
[2020-06-15] MEDS ORDERED: ACETAMINOPHEN 1000 MG/100 ML VIAL (NON FORMULARY) IVPB PRN (13:36)
[2020-06-15] MEDS: DOCUSATE SODIUM 100 MG CAPSULE (FP) PO SCH ×2 (16:14→22:23)
[2020-06-15] MEDS ORDERED: DEXTROSE 5%-WATER - 50 ML IVPB ONE ×2 (16:16→20:15)
[2020-06-15] MEDS: CEFAZOLIN 1 GM in DEXTROSE 5%-WATER - 50 ML IVPB SCH ×2 (16:20→23:42)
[2020-06-15] MEDS: oxyCODONE HCL 5 MG TABLET PO PRN (18:01)
[2020-06-15] MEDS: ACETAMINOPHEN 1000 MG/100 ML VIAL (NON FORMULARY) IVPB PRN (22:23)
[2020-06-15 22:57] LABS: HEMOGLOBIN 12.6 GM/dL (11.7-16.9); MCHC 34.2 g/dl (32.0-35.9); MEAN CELL VOLUME 93.6 fl (80-96); MEAN PLT VOLUME 8.6 fl (7.5-11.1); PLATELET COUNT 193 K/MM3 (134-434); RBC 3.95 M/mm3 (4.00-5.60); RDW 15.7 % (11.9-15.9)
[2020-06-15 23:03] LABS: ALBUMIN 2.8 g/dl (3.4-5.0); CALCIUM 9.3 mg/dL (8.5-10.1)
[2020-06-15 23:04] LABS: BLOOD UREA NITROGEN 33.4 mg/dL (7-18); MAGNESIUM 1.9 mg/dL (1.8-2.4)
[2020-06-15 23:07] LABS: PHOSPHOROUS 6.2 mg/dL (2.5-4.9)
[2020-06-15 23:08] LABS: TOT PROT 6.8 g/dl (6.4-8.2)
[2020-06-15 23:24] LABS: CREATININE 7.4 mg/dL (0.55-1.3)
[2020-06-15] MEDS: SEVELAMER CARBONATE 800 MG TAB (FP) PO SCH (23:41)
[2020-06-16] MEDS: oxyCODONE HCL 5 MG TABLET PO PRN ×3 (02:13→21:23)
[2020-06-16] MEDS: DOCUSATE SODIUM 100 MG CAPSULE (FP) PO SCH ×3 (06:55→21:23)
[2020-06-16] MEDS: ACETAMINOPHEN 1000 MG/100 ML VIAL (NON FORMULARY) IVPB PRN (06:55)
[2020-06-16 07:28] LABS: HEMATOCRIT 36.5 % (35.4-49); HEMOGLOBIN 12.1 GM/dL (11.7-16.9); MCH 31.1 pg (25.7-33.7); MCHC 33.1 g/dl (32.0-35.9); MEAN PLT VOLUME 8.4 fl (7.5-11.1); PLATELET COUNT 191 K/MM3 (134-434); RBC 3.89 M/mm3 (4.00-5.60); RDW 15.5 % (11.9-15.9)
[2020-06-16 07:46] LABS: POTASSIUM 4.6 mmol/L (3.5-5.1)
[2020-06-16 07:48] LABS: CALCIUM 9.2 mg/dL (8.5-10.1)
[2020-06-16 07:52] LABS: PHOSPHOROUS 6.8 mg/dL (2.5-4.9)
[2020-06-16] MEDS ORDERED: ceFAZolin SODIUM 1 GM VIAL ONE ×3 (07:59→23:29)
[2020-06-16] MEDS ORDERED: DEXTROSE 5%-WATER - 50 ML IVPB ONE ×3 (07:59→23:29)
[2020-06-16 08:01] LABS: CREATININE 7.8 mg/dL (0.55-1.3)
[2020-06-16] MEDS: SEVELAMER CARBONATE 800 MG TAB (FP) PO SCH ×3 (08:05→16:56)
[2020-06-16] MEDS: CEFAZOLIN 1 GM in DEXTROSE 5%-WATER - 50 ML IVPB SCH ×3 (08:05→23:47)
[2020-06-16] MEDS: HEPARIN NA (PORCINE) 5,000 UNITS/ML 1ML VIAL SQ SCH ×2 (08:06→16:57)
[2020-06-16] MEDS: PANTOPRAZOLE SODIUM 40 MG VIAL IVPUSH SCH (09:20)
[2020-06-16] MEDS: FERROUS SO4 325 MG TABLET (FP) PO SCH (09:20)
[2020-06-16] MEDS: FOLIC ACID 1 MG TABLET (FP) PO SCH (09:20)
[2020-06-16] MEDS: MORPHINE SULFATE 2 MG/ML VIAL IVPUSH PRN ×3 (13:22→23:46)
[2020-06-17] MEDS: HEPARIN NA (PORCINE) 5,000 UNITS/ML 1ML VIAL SQ SCH ×3 (00:08→16:30)
[2020-06-17] MEDS ORDERED: PT OWN MED DRAWER 7, Y5N ONE (03:58)
[2020-06-17] MEDS: DOCUSATE SODIUM 100 MG CAPSULE (FP) PO SCH ×3 (06:45→21:18)
[2020-06-17] MEDS: oxyCODONE HCL 5 MG TABLET PO PRN (08:11)
[2020-06-17] MEDS ORDERED: DEXTROSE 5%-WATER - 50 ML IVPB ONE ×2 (09:26→15:21)
[2020-06-17] MEDS ORDERED: ceFAZolin SODIUM 1 GM VIAL ONE ×2 (09:26→15:21)
[2020-06-17] MEDS: PANTOPRAZOLE SODIUM 40 MG VIAL IVPUSH SCH (09:29)
[2020-06-17] MEDS: FERROUS SO4 325 MG TABLET (FP) PO SCH (09:30)
[2020-06-17] MEDS: CEFAZOLIN 1 GM in DEXTROSE 5%-WATER - 50 ML IVPB SCH ×2 (09:31→16:21)
[2020-06-17] MEDS: FOLIC ACID 1 MG TABLET (FP) PO SCH (09:31)
[2020-06-17] MEDS: SEVELAMER CARBONATE 800 MG TAB (FP) PO SCH ×4 (09:31→18:22)
[2020-06-17] MEDS ORDERED: BISACODYL 10 MG SUPP.RECT PR PRN (11:20)
[2020-06-17] MEDS: POLYETHYLENE GLYCOL 3350 119 GM BTL PO SCH (12:36)
[2020-06-17] MEDS: CARVEDILOL 25 MG TABLET (FP) PO SCH ×2 (12:36→21:17)
[2020-06-17] MEDS: FUROSEMIDE 40 MG TABLET (FP) PO SCH (12:36)
[2020-06-17 13:15] LABS: BASO % 0.7 % (0-2.0); EOS % 0.8 % (0-4.5); HEMATOCRIT 33.5 % (35.4-49); LYMPH % 8.6 % (8-40); MCH 31.1 pg (25.7-33.7); MCHC 32.8 g/dl (32.0-35.9); MEAN CELL VOLUME 94.8 fl (80-96); MEAN PLT VOLUME 8.2 fl (7.5-11.1); MONO % 9.6 % (3.8-10.2); NEUT % 80.3 % (42.8-82.8); PLATELET COUNT 155 K/MM3 (134-434); RBC 3.53 M/mm3 (4.00-5.60); RDW 15.8 % (11.9-15.9); WHITE BLOOD COUNT 7.3 K/mm3 (4.0-10.0)
[2020-06-17 13:34] LABS: CHLORIDE 98 mmol/L (98-107); POTASSIUM 4.4 mmol/L (3.5-5.1); SODIUM 136 mmol/L (136-145)
[2020-06-17 13:36] LABS: ALBUMIN 2.4 g/dl (3.4-5.0); ANION GAP 6 MMOL/L (8-16); BLOOD UREA NITROGEN 28.7 mg/dL (7-18); CALCIUM 9.1 mg/dL (8.5-10.1); CO2 32 mmol/L (21-32)
[2020-06-17 13:37] LABS: GLUCOSE,RANDOM 105 mg/dL (74-106)
[2020-06-17 13:39] LABS: SGOT/AST 12 U/L (15-37)
[2020-06-17 13:40] LABS: CREATININE 6.9 mg/dL (0.55-1.3)
[2020-06-17 13:41] LABS: BILIRUBIN,TOTAL 0.6 mg/dL (0.2-1); TOT PROT 6.3 g/dl (6.4-8.2)
[2020-06-17 13:42] LABS: ALK PHOS 145 U/L (45-117)
[2020-06-17 14:02] LABS: SGPT/ALT < 6 U/L (13-61)
[2020-06-17] MEDS: SENNOSIDES 8.6MG TABLET (FP) PO SCH ×2 (14:55→21:18)
[2020-06-17] MEDS ORDERED: oxyCODONE HCL 5 MG TABLET PO PRN ×2 (16:35)
[2020-06-17] MEDS ORDERED: VANCOMYCIN 1 GRAM (PRE-DOCKED) 1,000 MG/250 ML BAG IVPB ONE (16:35)
[2020-06-17] MEDS ORDERED: diphenhydrAMINE HCL 25 MG CAPSULE (FP) PO PRN (16:35)
[2020-06-17] MEDS ORDERED: ONDANSETRON 4 MG/2 ML VIAL IVPUSH PRN ×2 (16:35)
[2020-06-17 20:10] LABS: HEP B CORE AB, TOT Negative (Negative)
[2020-06-17] MEDS: MORPHINE SULFATE 2 MG/ML VIAL IVPUSH PRN (21:17)
[2020-06-18] MEDS ORDERED: ceFAZolin SODIUM 1 GM VIAL ONE ×5 (00:12→23:41)
[2020-06-18] MEDS ORDERED: DEXTROSE 5%-WATER - 50 ML IVPB ONE ×5 (00:13→23:41)
[2020-06-18] MEDS: CEFAZOLIN 1 GM in DEXTROSE 5%-WATER - 50 ML IVPB SCH ×3 (01:05→15:57)
[2020-06-18] MEDS: HEPARIN NA (PORCINE) 5,000 UNITS/ML 1ML VIAL SQ SCH ×3 (01:05→17:19)
[2020-06-18] MEDS: MORPHINE SULFATE 2 MG/ML VIAL IVPUSH PRN (05:20)
[2020-06-18] MEDS: DOCUSATE SODIUM 100 MG CAPSULE (FP) PO SCH ×3 (05:21→21:03)
[2020-06-18 08:48] LABS: BASO % 0.4 % (0-2.0); EOS % 0.8 % (0-4.5); HEMATOCRIT 31.9 % (35.4-49); HEMOGLOBIN 10.8 GM/dL (11.7-16.9); LYMPH % 5.3 % (8-40); MCH 32.3 pg (25.7-33.7); MCHC 33.9 g/dl (32.0-35.9); MEAN CELL VOLUME 95.1 fl (80-96); MEAN PLT VOLUME 8.9 fl (7.5-11.1); MONO % 7.7 % (3.8-10.2); NEUT % 85.8 % (42.8-82.8); PLATELET COUNT 161 K/MM3 (134-434); RBC 3.35 M/mm3 (4.00-5.60); RDW 15.7 % (11.9-15.9)
[2020-06-18] MEDS: SEVELAMER CARBONATE 800 MG TAB (FP) PO SCH ×3 (08:51→17:19)
[2020-06-18 09:16] LABS: CHLORIDE 101 mmol/L (98-107); POTASSIUM 4.6 mmol/L (3.5-5.1); SODIUM 137 mmol/L (136-145)
[2020-06-18 09:21] LABS: ALBUMIN 2.3 g/dl (3.4-5.0); BLOOD UREA NITROGEN 38.5 mg/dL (7-18); CALCIUM 8.9 mg/dL (8.5-10.1); GLUCOSE,RANDOM 74 mg/dL (74-106)
[2020-06-18 09:22] LABS: ANION GAP 10 MMOL/L (8-16); CO2 26 mmol/L (21-32)
[2020-06-18 09:24] LABS: SGOT/AST 9 U/L (15-37); SGPT/ALT < 6 U/L (13-61)
[2020-06-18 09:26] LABS: TOT PROT 6.3 g/dl (6.4-8.2)
[2020-06-18 09:27] LABS: ALK PHOS 140 U/L (45-117); BILIRUBIN,TOTAL 0.3 mg/dL (0.2-1)
[2020-06-18 09:33] LABS: CREATININE 8.2 mg/dL (0.55-1.3)
[2020-06-18] MEDS ORDERED: SODIUM CHLORIDE 0.9% 500 ML INFUS.BAG IV ONE (10:41)
[2020-06-18] MEDS ORDERED: ACETAMINOPHEN 1000 MG/100 ML VIAL (NON FORMULARY) IVPB PRN (10:42)
[2020-06-18] MEDS: FUROSEMIDE 40 MG TABLET (FP) PO SCH (10:49)
[2020-06-18] MEDS: FOLIC ACID 1 MG TABLET (FP) PO SCH (10:50)
[2020-06-18] MEDS: POLYETHYLENE GLYCOL 3350 119 GM BTL PO SCH (10:50)
[2020-06-18] MEDS: SENNOSIDES 8.6MG TABLET (FP) PO SCH ×2 (10:51→21:03)
[2020-06-18] MEDS: PANTOPRAZOLE SODIUM 40 MG VIAL IVPUSH SCH (10:51)
[2020-06-18] MEDS: CARVEDILOL 25 MG TABLET (FP) PO SCH (10:51)
[2020-06-18] MEDS: CARVEDILOL 12.5 MG TABLET (FP) PO SCH (21:04)
[2020-06-19] MEDS: HEPARIN NA (PORCINE) 5,000 UNITS/ML 1ML VIAL SQ SCH ×3 (00:50→17:12)
[2020-06-19] MEDS: CEFAZOLIN 1 GM in DEXTROSE 5%-WATER - 50 ML IVPB SCH ×2 (00:50→08:55)
[2020-06-19] MEDS: DOCUSATE SODIUM 100 MG CAPSULE (FP) PO SCH ×3 (05:20→22:46)
[2020-06-19 06:33] LABS: BASO % 0.6 % (0-2.0); EOS % 1.4 % (0-4.5); HEMATOCRIT 30.5 % (35.4-49); HEMOGLOBIN 10.3 GM/dL (11.7-16.9); LYMPH % 10.7 % (8-40); MCH 31.6 pg (25.7-33.7); MCHC 33.7 g/dl (32.0-35.9); MEAN CELL VOLUME 93.6 fl (80-96); MEAN PLT VOLUME 8.5 fl (7.5-11.1); MONO % 7.7 % (3.8-10.2); NEUT % 79.6 % (42.8-82.8); PLATELET COUNT 189 K/MM3 (134-434); RBC 3.26 M/mm3 (4.00-5.60); RDW 15.5 % (11.9-15.9); WHITE BLOOD COUNT 6.2 K/mm3 (4.0-10.0)
[2020-06-19 07:02] LABS: CHLORIDE 100 mmol/L (98-107); POTASSIUM 4.4 mmol/L (3.5-5.1); SODIUM 136 mmol/L (136-145)
[2020-06-19 07:03] LABS: CALCIUM 9.4 mg/dL (8.5-10.1)
[2020-06-19 07:04] LABS: ALBUMIN 2.2 g/dl (3.4-5.0); ANION GAP 10 MMOL/L (8-16); BLOOD UREA NITROGEN 48.4 mg/dL (7-18); CO2 27 mmol/L (21-32); GLUCOSE,RANDOM 94 mg/dL (74-106)
[2020-06-19 07:07] LABS: SGOT/AST 11 U/L (15-37)
[2020-06-19 07:09] LABS: BILIRUBIN,TOTAL 0.6 mg/dL (0.2-1); TOT PROT 6.5 g/dl (6.4-8.2)
[2020-06-19 07:10] LABS: ALK PHOS 144 U/L (45-117)
[2020-06-19 07:14] LABS: SGPT/ALT < 6 U/L (13-61)
[2020-06-19 07:15] LABS: CREATININE 9.3 mg/dL (0.55-1.3)
[2020-06-19] MEDS ORDERED: ceFAZolin SODIUM 1 GM VIAL ONE (08:51)
[2020-06-19] MEDS ORDERED: DEXTROSE 5%-WATER - 50 ML IVPB ONE (08:51)
[2020-06-19] MEDS: SEVELAMER CARBONATE 800 MG TAB (FP) PO SCH ×3 (08:55→17:44)
[2020-06-19] MEDS ORDERED: PT OWN MED DRAWER 7, Y5N ONE (10:29)
[2020-06-19] MEDS: FOLIC ACID 1 MG TABLET (FP) PO SCH (10:33)
[2020-06-19] MEDS: SENNOSIDES 8.6MG TABLET (FP) PO SCH ×2 (10:33→22:47)
[2020-06-19] MEDS: POLYETHYLENE GLYCOL 3350 119 GM BTL PO SCH (10:33)
[2020-06-19] MEDS: CARVEDILOL 12.5 MG TABLET (FP) PO SCH (10:33)
[2020-06-19] MEDS: PANTOPRAZOLE SODIUM 40 MG VIAL IVPUSH SCH (10:34)
[2020-06-19] MEDS ORDERED: EPOETIN ALFA-EPBX 4,000 UNIT/ML VIAL IVPUSH ONE (11:30)
[2020-06-19] MEDS ORDERED: CARVEDILOL 12.5 MG TABLET (FP) PO ONE (13:48)
[2020-06-19] MEDS: CARVEDILOL 25 MG TABLET (FP) PO SCH (22:46)
[2020-06-19] MEDS: oxyCODONE HCL 5 MG TABLET PO PRN (22:47)
[2020-06-20] MEDS: HEPARIN NA (PORCINE) 5,000 UNITS/ML 1ML VIAL SQ SCH ×3 (01:41→18:17)
[2020-06-20] MEDS: DOCUSATE SODIUM 100 MG CAPSULE (FP) PO SCH ×3 (07:06→22:07)
[2020-06-20] MEDS: CARVEDILOL 25 MG TABLET (FP) PO SCH ×2 (09:03→22:08)
[2020-06-20] MEDS: SEVELAMER CARBONATE 800 MG TAB (FP) PO SCH ×4 (09:04→18:21)
[2020-06-20] MEDS: FOLIC ACID 1 MG TABLET (FP) PO SCH (09:04)
[2020-06-20] MEDS: SENNOSIDES 8.6MG TABLET (FP) PO SCH ×2 (09:05→22:09)
[2020-06-20] MEDS: PANTOPRAZOLE SODIUM 40 MG VIAL IVPUSH SCH (09:05)
[2020-06-20] MEDS: POLYETHYLENE GLYCOL 3350 119 GM BTL PO SCH (09:05)
[2020-06-20] MEDS ORDERED: BISACODYL 10 MG SUPP.RECT PR PRN (13:50)
[2020-06-20 14:52] LABS: BASO % 0.3 % (0-2.0); EOS % 1.5 % (0-4.5); HEMATOCRIT 29.2 % (35.4-49); HEMOGLOBIN 9.7 GM/dL (11.7-16.9); LYMPH % 9.3 % (8-40); MCHC 33.3 g/dl (32.0-35.9); MEAN CELL VOLUME 96.2 fl (80-96); MEAN PLT VOLUME 8.6 fl (7.5-11.1); MONO % 11.6 % (3.8-10.2); NEUT % 77.3 % (42.8-82.8); PLATELET COUNT 187 K/MM3 (134-434); RBC 3.03 M/mm3 (4.00-5.60); RDW 15.3 % (11.9-15.9)
[2020-06-20 15:15] LABS: CHLORIDE 98 mmol/L (98-107); SODIUM 139 mmol/L (136-145)
[2020-06-20 15:18] LABS: ALBUMIN 2.2 g/dl (3.4-5.0); ANION GAP 9 MMOL/L (8-16); BLOOD UREA NITROGEN 31.9 mg/dL (7-18); CALCIUM 9.7 mg/dL (8.5-10.1); CO2 31 mmol/L (21-32); GLUCOSE,RANDOM 106 mg/dL (74-106)
[2020-06-20 15:21] LABS: CREATININE 7.2 mg/dL (0.55-1.3); PHOSPHOROUS 3.4 mg/dL (2.5-4.9); SGOT/AST 12 U/L (15-37)
[2020-06-20 15:23] LABS: BILIRUBIN,TOTAL 0.5 mg/dL (0.2-1); TOT PROT 6.5 g/dl (6.4-8.2)
[2020-06-20 15:24] LABS: ALK PHOS 153 U/L (45-117)
[2020-06-20 15:34] LABS: SGPT/ALT < 6 U/L (13-61)
[2020-06-20 17:22] LABS: EPI CELLS >36 /uL (0-25.1); HYALINE CASTS 4 /uL (0-3.1); PH,URINE >= 9.0 (5.0-8.0); URINE APPEARANCE CLEAR; URINE BACTERIA 38 /uL (0-1359); URINE BILIRUBIN NEGATIVE (NEGATIVE); URINE COLOR YELLOW; URINE GLUCOSE (UA) NEGATIVE (NEGATIVE); URINE KETONE NEGATIVE (NEGATIVE); URINE LEUK ESTERASE TRACE (NEGATIVE); URINE NITRITE NEGATIVE (NEGATIVE); URINE PROTEIN 3+ (NEGATIVE); URINE RBC 13 /uL (0-23.9); URINE UROBILINOGEN 0.2 mg/dL (0.2-1.0); URINE WBC 65 /uL (0-25.8)
[2020-06-20] MEDS: oxyCODONE HCL 5 MG TABLET PO PRN (23:40)
[2020-06-21] MEDS: HEPARIN NA (PORCINE) 5,000 UNITS/ML 1ML VIAL SQ SCH ×2 (01:45→12:23)
[2020-06-21] MEDS: DOCUSATE SODIUM 100 MG CAPSULE (FP) PO SCH ×2 (06:06→13:15)
[2020-06-21 07:33] LABS: BASO % 0.5 % (0-2.0); HEMOGLOBIN 10.3 GM/dL (11.7-16.9); LYMPH % 18.2 % (8-40); MCHC 33.2 g/dl (32.0-35.9); MEAN CELL VOLUME 96.3 fl (80-96); MEAN PLT VOLUME 8.8 fl (7.5-11.1); MONO % 12.5 % (3.8-10.2); NEUT % 66.8 % (42.8-82.8); PLATELET COUNT 204 K/MM3 (134-434); RBC 3.22 M/mm3 (4.00-5.60); RDW 15.4 % (11.9-15.9); WHITE BLOOD COUNT 6.6 K/mm3 (4.0-10.0)
[2020-06-21 07:45] LABS: CHLORIDE 100 mmol/L (98-107); POTASSIUM 4.5 mmol/L (3.5-5.1); SODIUM 138 mmol/L (136-145)
[2020-06-21] MEDS: SEVELAMER CARBONATE 800 MG TAB (FP) PO SCH ×2 (07:46→12:24)
[2020-06-21 08:04] LABS: ALBUMIN 2.3 g/dl (3.4-5.0); ANION GAP 8 MMOL/L (8-16); CO2 30 mmol/L (21-32)
[2020-06-21 08:05] LABS: CALCIUM 10.2 mg/dL (8.5-10.1); GLUCOSE,RANDOM 98 mg/dL (74-106)
[2020-06-21 08:06] LABS: MAGNESIUM 2.2 mg/dL (1.8-2.4); PHOSPHOROUS 4.2 mg/dL (2.5-4.9)
[2020-06-21 08:07] LABS: SGOT/AST 22 U/L (15-37)
[2020-06-21 08:08] LABS: BILIRUBIN,TOTAL 0.9 mg/dL (0.2-1); TOT PROT 6.8 g/dl (6.4-8.2)
[2020-06-21 08:13] LABS: ALK PHOS 224 U/L (45-117); CREATININE 8.6 mg/dL (0.55-1.3); SGPT/ALT < 6 U/L (13-61)
[2020-06-21] MEDS ORDERED: EPOETIN ALFA-EPBX 10,000 UNIT/ML VIAL IVPUSH ONE (09:15)
[2020-06-21] MEDS ORDERED: PANTOPRAZOLE 40 MG TABLET PO SCH (10:00)
[2020-06-21] MEDS: CARVEDILOL 25 MG TABLET (FP) PO SCH (12:24)
[2020-06-21] MEDS: FOLIC ACID 1 MG TABLET (FP) PO SCH (12:24)
[2020-06-21] MEDS: SENNOSIDES 8.6MG TABLET (FP) PO SCH (12:25)
[2020-06-21] MEDS: POLYETHYLENE GLYCOL 3350 119 GM BTL PO SCH (12:28)
[2020-06-21 12:35] VITALS: BMI 27.7
[2020-06-21 15:31] VITALS: PULSE 101; TEMP 98.3
[2020-06-21 16:02] VITALS: BP 115/73
== END 2020-06-21 17:03 | DRG 453 ==
LOC: J2C 04:14 → JICU 15:40 → J8W 06-17 17:50
PROVIDERS: ADMIT Internal Medicine; ATTEND Internal Medicine
PROC: 0SG30AJ Fusion of Lumbosacral Joint with Interbody Fusion Device, Posterior Approach, Anterior Column, Open Approach (ICD-10-PCS; 2020-06-15)
PROC: 0SG3071 Fusion of Lumbosacral Joint with Autologous Tissue Substitute, Posterior Approach, Posterior Column, Open Approach (ICD-10-PCS; 2020-06-15)
PROC: 4A10X4G Monitoring of Central Nervous Electrical Activity, Intraoperative, External Approach (ICD-10-PCS; 2020-06-15)
PROC: 0JX70ZC Transfer Back Subcutaneous Tissue and Fascia with Skin, Subcutaneous Tissue and Fascia, Open Approach (ICD-10-PCS; 2020-06-15)
PROC: B01BZZZ Fluoroscopy of Spinal Cord (ICD-10-PCS; 2020-06-15)
PROC: 0SB40ZZ Excision of Lumbosacral Disc, Open Approach (ICD-10-PCS; principal; 2020-06-15 08:00)
PROC: 5A1D70Z Performance of Urinary Filtration, Intermittent, Less than 6 Hours Per Day (ICD-10-PCS; 2020-06-16)
PROC: 5A1D70Z Performance of Urinary Filtration, Intermittent, Less than 6 Hours Per Day (ICD-10-PCS; 2020-06-19)
PROC: 5A1D70Z Performance of Urinary Filtration, Intermittent, Less than 6 Hours Per Day (ICD-10-PCS; 2020-06-21)
DX: M46.47 Discitis, unspecified, lumbosacral region (principal); N18.6 End stage renal disease; R57.1 Hypovolemic shock; M46.27 Osteomyelitis of vertebra, lumbosacral region; I13.2 Hypertensive heart and chronic kidney disease with heart failure and with stage 5 chronic kidney disease, or end stage renal disease; I50.22 Chronic systolic (congestive) heart failure; I42.8 Other cardiomyopathies; M86.8X9 Other osteomyelitis, unspecified sites; M47.816 Spondylosis without myelopathy or radiculopathy, lumbar region; E78.5 Hyperlipidemia, unspecified; J44.9 Chronic obstructive pulmonary disease, unspecified; K42.9 Umbilical hernia without obstruction or gangrene; I95.9 Hypotension, unspecified; I48.91 Unspecified atrial fibrillation; R50.82 Postprocedural fever; N40.0 Benign prostatic hyperplasia without lower urinary tract symptoms; Z99.2 Dependence on renal dialysis; Z99.81 Dependence on supplemental oxygen
CPT/HCPCS: 36415; 36430; 71045-TC-FY; 72131-TC; 76000-TC-FY; 80048; 80053; 81003; 83605; 83735; 84100; 84132; 85025; 85027; 86704; 86706; 86707; 86708; 86709; 86803; 86850; 86900; 86901; 86922; 87040; 87086; 87340; 94760; 97116-GP; 97162-GP; J0131; J1644; P9058; Q5106

== ENCOUNTER 2022-07-29 20:03 | Inpatient (IN) | payer OTHER, BC ==
[2022-07-29 20:11] VITALS: BMI 28.3
[2022-07-29] MEDS ORDERED: DEXAMETHASONE SOD PHOSPHATE 10 MG/1 ML VIAL IVPUSH ONE (21:07)
[2022-07-29] MEDS ORDERED: ALBUTEROL SO4 2.5/IPRATROPIUM 0.5 INH SOL 3 ML VIAL.NEB. NEB ONE (21:29)
[2022-07-29] MEDS ORDERED: DEXAMETHASONE SOD PHOSPHATE 10 MG/1 ML VIAL ONE (21:29)
[2022-07-29] MEDS: ALBUTEROL SO4 2.5/IPRATROPIUM 0.5 INH SOL 3 ML VIAL.NEB. NEB SCH ×2 (21:35→21:50)
[2022-07-29 21:54] LABS: BASO % 0.7 % (0-2.0); EOS % 2.4 % (0-4.5); HEMATOCRIT 39.5 % (35.4-49); HEMOGLOBIN 13.1 GM/dL (11.7-16.9); LYMPH % 11.3 % (8-40); MCH 31.9 pg (25.7-33.7); MCHC 33.1 g/dl (32.0-35.9); MEAN CELL VOLUME 96.3 fl (80-96); MEAN PLT VOLUME 8.6 fl (7.5-11.1); MONO % 12.2 % (3.8-10.2); NEUT % 73.4 % (42.8-82.8); PLATELET COUNT 185 10^3/uL (134-434); RDW 14.2 % (11.9-15.9); WHITE BLOOD COUNT 6.7 K/mm3 (4.0-10.0)
[2022-07-29] MEDS ORDERED: CEFEPIME HCL/D5W 1 GM/50 ML BAG IVPB ONE (21:58)
[2022-07-29] MEDS ORDERED: VANCOMYCIN 1 GM in D5W (PRE-DOCKED) 1,000 MG/250 ML IVPB ONE (21:58)
[2022-07-29] MEDS ORDERED: VANCOMYCIN/WATER FOR INJ (PEG) 1,000 MG/200 ML BAG IVPB ONE (21:59)
[2022-07-29] MEDS ORDERED: CEFEPIME 1 GM/100 ML BAG IVPB ONE (21:59)
[2022-07-29 22:01] LABS: INR 3.22 (0.83-1.09); PROTHROMBIN TIME (PATIENT) 37.5 SEC (9.7-13.0)
[2022-07-29 22:03] LABS: ACTIVATED PTT 49.9 SECONDS (25.2-36.5); VENOUS BASE EXCESS 3.9 mmol/L (-2-2); VENOUS O2 SATURATION 30.2 % (70-80); VENOUS PCO2 62.4 mmHg (38-52); VENOUS PH 7.325 (7.310-7.410)
[2022-07-29 22:28] LABS: CALCIUM 8.1 mg/dL (8.5-10.1)
[2022-07-29 22:29] LABS: ALBUMIN 3.3 g/dl (3.4-5.0)
[2022-07-29 22:32] LABS: CREATININE 6.4 mg/dL (0.55-1.3)
[2022-07-29 22:34] LABS: BILIRUBIN,TOTAL 0.5 mg/dL (0.2-1); TOT PROT 8.1 g/dl (6.4-8.2)
[2022-07-29 22:51] LABS: N-TERMINAL BNP 36966.8 pg/ml (5-125)
[2022-07-29 23:43] LABS: VENOUS BASE EXCESS 3.3 mmol/L (-2-2); VENOUS O2 SATURATION 62.3 % (70-80); VENOUS PCO2 56.4 mmHg (38-52); VENOUS PH 7.348 (7.310-7.410)
[2022-07-30 03:25] LABS: MAGNESIUM 1.7 mg/dL (1.8-2.4)
[2022-07-30 05:48] LABS: ARTERIAL BLD GAS O2 SATURATION 99.4 % (95-98); ARTERIAL BLOOD GAS BASE EXCESS 0.6 mmol/L (-2-2); ARTERIAL BLOOD GAS PO2 223.4 mmHg (80-100); ARTERIAL BLOOD GAS pH 7.362 (7.350-7.450)
[2022-07-30] MEDS ORDERED: MIDODRINE HCL 5 MG TABLET PO SCH (06:00)
[2022-07-30 06:14] LABS: VENT MODE S/T; VENT RATE 12
[2022-07-30] MEDS: hydrALAZINE HCL 10 MG TABLET PO SCH ×3 (06:33→23:58)
[2022-07-30] MEDS: methylPREDNISolone NA SUCC 40 MG/1 ML VIAL IVPUSH SCH ×3 (06:45→17:33)
[2022-07-30] MEDS ORDERED: methylPREDNISolone NA SUCC 40 MG/1 ML VIAL ONE ×3 (06:47→16:14)
[2022-07-30] MEDS ORDERED: ALBUTEROL SO4 2.5/IPRATROPIUM 0.5 INH SOL 3 ML VIAL.NEB. NEB ONE ×4 (08:03→23:38)
[2022-07-30] MEDS: ALBUTEROL SO4 2.5/IPRATROPIUM 0.5 INH SOL 3 ML VIAL.NEB. NEB SCH ×4 (08:05→23:58)
[2022-07-30] MEDS ORDERED: CARVEDILOL 25 MG TABLET (FP) ONE ×3 (08:25→23:46)
[2022-07-30] MEDS ORDERED: DOXYCYCLINE HYCLATE 100 MG VIAL ONE ×2 (08:25→23:39)
[2022-07-30] MEDS ORDERED: hydrALAZINE HCL 10 MG TABLET ONE ×2 (08:25→23:38)
[2022-07-30] MEDS ORDERED: CEFTRIAXONE 1 GM/50 ML BAG ONE (08:26)
[2022-07-30] MEDS: CARVEDILOL 25 MG TABLET (FP) PO SCH ×2 (09:02→23:58)
[2022-07-30] MEDS: DOXYCYCLINE INJECTION 100 MG in DEXTROSE 5%-WATER 100 ML IVPB SCH ×2 (09:02→23:58)
[2022-07-30] MEDS: MIDODRINE HCL 5 MG TABLET PO SCH ×2 (09:02→13:34)
[2022-07-30] MEDS: BUDESONIDE/FORMETEROL FUMARATE 160/4.5 mcg INHALER IH SCH (09:15)
[2022-07-30] MEDS: CEFTRIAXONE 1 GM in DEXTROSE 5%-WATER - 50 ML IVPB SCH (09:26)
[2022-07-30 10:15] LABS: INR 3.38 (0.83-1.09); PROTHROMBIN TIME (PATIENT) 39.4 SEC (9.7-13.0)
[2022-07-30 10:16] LABS: BASO % 0.2 % (0-2.0); EOS % 0.1 % (0-4.5); HEMATOCRIT 37.5 % (35.4-49); HEMOGLOBIN 12.5 GM/dL (11.7-16.9); LYMPH % 7.5 % (8-40); MCH 32.2 pg (25.7-33.7); MCHC 33.5 g/dl (32.0-35.9); MEAN CELL VOLUME 96.4 fl (80-96); MEAN PLT VOLUME 8.8 fl (7.5-11.1); MONO % 1.3 % (3.8-10.2); NEUT % 90.9 % (42.8-82.8); PLATELET COUNT 185 10^3/uL (134-434); RBC 3.89 M/mm3 (4.00-5.60); RDW 14.2 % (11.9-15.9); WHITE BLOOD COUNT 6.2 K/mm3 (4.0-10.0)
[2022-07-30 10:35] LABS: CHLORIDE 93 mmol/L (98-107); SODIUM 136 mmol/L (136-145)
[2022-07-30 10:42] LABS: GLUCOSE,RANDOM 222 mg/dL (74-106)
[2022-07-30 10:43] LABS: CALCIUM 8.3 mg/dL (8.5-10.1)
[2022-07-30 10:44] LABS: ALBUMIN 3.2 g/dl (3.4-5.0); ANION GAP 14 MMOL/L (8-16); BLOOD UREA NITROGEN 26.8 mg/dL (7-18); CO2 29 mmol/L (21-32); MAGNESIUM 1.9 mg/dL (1.8-2.4)
[2022-07-30 10:46] LABS: SGPT/ALT 18 U/L (13-61)
[2022-07-30 10:47] LABS: PHOSPHOROUS 4.5 mg/dL (2.5-4.9); SGOT/AST 16 U/L (15-37)
[2022-07-30 10:48] LABS: BILIRUBIN,TOTAL 0.4 mg/dL (0.2-1)
[2022-07-30 10:49] LABS: ALK PHOS 104 U/L (45-117)
[2022-07-30 10:54] LABS: CREATININE 8.1 mg/dL (0.55-1.3)
[2022-07-30] MEDS: WARFARIN NA 5 MG TABLET PO SCH (17:32)
[2022-07-30] MEDS ORDERED: WARFARIN NA 5 MG TABLET PO SCH ×2 (18:00)
[2022-07-30] MEDS ORDERED: ATORVASTATIN CA 10 MG TABLET (FP) ONE (23:38)
[2022-07-30] MEDS ORDERED: TAMSULOSIN HCL 0.4 MG CAP ONE (23:38)
[2022-07-30] MEDS: TAMSULOSIN HCL 0.4 MG CAP PO SCH (23:58)
[2022-07-30] MEDS: ATORVASTATIN CA 10 MG TABLET (FP) PO SCH (23:58)
[2022-07-31] MEDS: BUDESONIDE/FORMETEROL FUMARATE 160/4.5 mcg INHALER IH SCH ×3 (00:48→21:32)
[2022-07-31] MEDS ORDERED: methylPREDNISolone NA SUCC 40 MG/1 ML VIAL ONE (02:37)
[2022-07-31] MEDS: methylPREDNISolone NA SUCC 40 MG/1 ML VIAL IVPUSH SCH ×3 (03:00→21:33)
[2022-07-31] MEDS ORDERED: ALBUTEROL SO4 2.5/IPRATROPIUM 0.5 INH SOL 3 ML VIAL.NEB. NEB ONE (07:28)
[2022-07-31] MEDS: ALBUTEROL SO4 2.5/IPRATROPIUM 0.5 INH SOL 3 ML VIAL.NEB. NEB SCH ×4 (07:29→19:50)
[2022-07-31] MEDS ORDERED: FERROUS SO4 325 MG TABLET (FP) PO SCH (08:00)
[2022-07-31] MEDS: CEFTRIAXONE 1 GM in DEXTROSE 5%-WATER - 50 ML IVPB SCH (11:40)
[2022-07-31] MEDS: CARVEDILOL 25 MG TABLET (FP) PO SCH ×2 (11:42→21:30)
[2022-07-31] MEDS: hydrALAZINE HCL 10 MG TABLET PO SCH ×2 (17:55→21:32)
[2022-07-31] MEDS: DOXYCYCLINE INJECTION 100 MG in DEXTROSE 5%-WATER 100 ML IVPB SCH ×2 (21:13)
[2022-07-31] MEDS: TAMSULOSIN HCL 0.4 MG CAP PO SCH (21:29)
[2022-07-31] MEDS: ATORVASTATIN CA 10 MG TABLET (FP) PO SCH (21:30)
[2022-07-31] MEDS: MELATONIN 5 MG TABLETS PO PRN (21:31)
[2022-07-31] MEDS: WARFARIN NA 5 MG, WARFARIN NA 3 MG PO SCH (21:31)
[2022-08-01] MEDS: methylPREDNISolone NA SUCC 40 MG/1 ML VIAL IVPUSH SCH ×2 (01:41→09:58)
[2022-08-01] MEDS: ALBUTEROL SO4 2.5/IPRATROPIUM 0.5 INH SOL 3 ML VIAL.NEB. NEB SCH ×4 (08:10→20:08)
[2022-08-01] MEDS: PATIENT'S OWN MEDICATION (NON-FORMULARY) (Ferric Citrate [Auryxia] 210 MG Tablet) PO SCH ×3 (09:57→18:05)
[2022-08-01] MEDS: CEFTRIAXONE 1 GM in DEXTROSE 5%-WATER - 50 ML IVPB SCH (09:57)
[2022-08-01] MEDS: CARVEDILOL 25 MG TABLET (FP) PO SCH ×2 (09:57→21:09)
[2022-08-01] MEDS: BUDESONIDE/FORMETEROL FUMARATE 160/4.5 mcg INHALER IH SCH ×2 (09:58→21:11)
[2022-08-01] MEDS: hydrALAZINE HCL 10 MG TABLET PO SCH ×2 (10:12→21:10)
[2022-08-01 11:45] LABS: HEMATOCRIT 39.1 % (35.4-49); HEMOGLOBIN 12.6 GM/dL (11.7-16.9); MCH 31.6 pg (25.7-33.7); MCHC 32.2 g/dl (32.0-35.9); MEAN CELL VOLUME 98.2 fl (80-96); PLATELET COUNT 208 10^3/uL (134-434); RBC 3.98 M/mm3 (4.00-5.60); RDW 14.4 % (11.9-15.9); WHITE BLOOD COUNT 13.4 K/mm3 (4.0-10.0)
[2022-08-01 11:53] LABS: INR 1.86 (0.83-1.09); PROTHROMBIN TIME (PATIENT) 21.5 SEC (9.7-13.0)
[2022-08-01 12:15] LABS: CHLORIDE 94 mmol/L (98-107); SODIUM 138 mmol/L (136-145)
[2022-08-01 12:17] LABS: ANION GAP 14 MMOL/L (8-16); CALCIUM 9.3 mg/dL (8.5-10.1); CO2 30 mmol/L (21-32); GLUCOSE,RANDOM 171 mg/dL (74-106)
[2022-08-01] MEDS: DOXYCYCLINE INJECTION 100 MG in DEXTROSE 5%-WATER 100 ML IVPB SCH ×2 (12:26→21:09)
[2022-08-01 12:34] LABS: BLOOD UREA NITROGEN 53.8 mg/dL (7-18); CREATININE 8.6 mg/dL (0.55-1.3)
[2022-08-01 12:52] LABS: ANISOCYTOSIS 1+; MACROCYTOSIS 1+
[2022-08-01] MEDS: WARFARIN NA 5 MG TABLET PO SCH (18:05)
[2022-08-01] MEDS ORDERED: ACETAMINOPHEN 500 MG TABLET (FP) PO PRN (18:11)
[2022-08-01] MEDS: POLYETHYLENE GLYCOL (HEALTHYLAX) 3350 17 GM PACKET PO SCH (18:25)
[2022-08-01] MEDS: TAMSULOSIN HCL 0.4 MG CAP PO SCH (21:09)
[2022-08-01] MEDS: predniSONE 20 MG TABLET (UD) PO SCH (21:09)
[2022-08-01] MEDS: MELATONIN 5 MG TABLETS PO PRN (21:09)
[2022-08-01] MEDS: ATORVASTATIN CA 10 MG TABLET (FP) PO SCH (21:10)
[2022-08-02] MEDS: ALBUTEROL SO4 2.5/IPRATROPIUM 0.5 INH SOL 3 ML VIAL.NEB. NEB SCH ×3 (07:35→16:17)
[2022-08-02 09:19] LABS: HEMOGLOBIN 12.7 GM/dL (11.7-16.9); MCH 31.2 pg (25.7-33.7); MCHC 31.9 g/dl (32.0-35.9); MEAN CELL VOLUME 97.8 fl (80-96); PLATELET COUNT 213 10^3/uL (134-434); RBC 4.08 M/mm3 (4.00-5.60); RDW 14.5 % (11.9-15.9); WHITE BLOOD COUNT 13.9 K/mm3 (4.0-10.0)
[2022-08-02 09:28] LABS: INR 1.47 (0.83-1.09)
[2022-08-02 09:41] LABS: CHLORIDE 95 mmol/L (98-107); SODIUM 138 mmol/L (136-145)
[2022-08-02 09:45] LABS: ALBUMIN 3.4 g/dl (3.4-5.0); CALCIUM 9.4 mg/dL (8.5-10.1); GLUCOSE,RANDOM 124 mg/dL (74-106)
[2022-08-02] MEDS: hydrALAZINE HCL 10 MG TABLET PO SCH (09:45)
[2022-08-02] MEDS: predniSONE 20 MG TABLET (UD) PO SCH (09:45)
[2022-08-02] MEDS: CARVEDILOL 25 MG TABLET (FP) PO SCH (09:45)
[2022-08-02] MEDS: PATIENT'S OWN MEDICATION (NON-FORMULARY) (Ferric Citrate [Auryxia] 210 MG Tablet) PO SCH ×3 (09:45→17:12)
[2022-08-02] MEDS: CEFTRIAXONE 1 GM in DEXTROSE 5%-WATER - 50 ML IVPB SCH (09:45)
[2022-08-02] MEDS: POLYETHYLENE GLYCOL (HEALTHYLAX) 3350 17 GM PACKET PO SCH (09:45)
[2022-08-02 09:46] LABS: ANION GAP 14 MMOL/L (8-16); CO2 28 mmol/L (21-32); MAGNESIUM 2.2 mg/dL (1.8-2.4)
[2022-08-02] MEDS: BUDESONIDE/FORMETEROL FUMARATE 160/4.5 mcg INHALER IH SCH (09:46)
[2022-08-02] MEDS: DOXYCYCLINE INJECTION 100 MG in DEXTROSE 5%-WATER 100 ML IVPB SCH (09:46)
[2022-08-02 09:48] LABS: PHOSPHOROUS 3.8 mg/dL (2.5-4.9); SGOT/AST 20 U/L (15-37); SGPT/ALT 25 U/L (13-61)
[2022-08-02 09:50] LABS: BILIRUBIN,TOTAL 0.4 mg/dL (0.2-1); TOT PROT 7.9 g/dl (6.4-8.2)
[2022-08-02 09:51] LABS: ALK PHOS 93 U/L (45-117)
[2022-08-02 10:03] LABS: BLOOD UREA NITROGEN 84.6 mg/dL (7-18); CREATININE 10.5 mg/dL (0.55-1.3)
[2022-08-02] MEDS: WARFARIN NA 5 MG, WARFARIN NA 3 MG PO SCH (17:13)
[2022-08-02 17:20] VITALS: BP 151/91; PULSE 93; RESP 20; TEMP 99
== END 2022-08-02 20:37 | disposition home or self-care (01) | DRG 190 ==
LOC: JER 20:03 → JERBED 22:07 → J6W 07-31 10:19
PROVIDERS: ADMIT Internal Medicine; ATTEND Internal Medicine
PROC: 5A1D70Z Performance of Urinary Filtration, Intermittent, Less than 6 Hours Per Day (ICD-10-PCS; principal; 2022-07-31)
PROC: 5A1D70Z Performance of Urinary Filtration, Intermittent, Less than 6 Hours Per Day (ICD-10-PCS; 2022-08-02)
DX: J44.0 Chronic obstructive pulmonary disease with (acute) lower respiratory infection (principal); J18.9 Pneumonia, unspecified organism; N18.6 End stage renal disease; J96.21 Acute and chronic respiratory failure with hypoxia; I13.2 Hypertensive heart and chronic kidney disease with heart failure and with stage 5 chronic kidney disease, or end stage renal disease; I50.32 Chronic diastolic (congestive) heart failure; J98.11 Atelectasis; M46.37 Infection of intervertebral disc (pyogenic), lumbosacral region; N40.0 Benign prostatic hyperplasia without lower urinary tract symptoms; J44.1 Chronic obstructive pulmonary disease with (acute) exacerbation; E78.5 Hyperlipidemia, unspecified; I48.91 Unspecified atrial fibrillation; F10.10 Alcohol abuse, uncomplicated; M54.50 Low back pain, unspecified; E66.9 Obesity, unspecified; Z68.28 Body mass index [BMI] 28.0-28.9, adult; Z99.81 Dependence on supplemental oxygen; Z99.2 Dependence on renal dialysis
CPT/HCPCS: 0241U-QW; 36415; 36600; 71045-TC-FY; 71046-TC-FY; 80048; 80053; 82803; 83605; 83735; 83880; 84100; 84484; 85025; 85027; 85610; 85730; 86480; 86803; 86850; 86900; 86901; 87040; 87340; 87899; 93005; 93010; 94640; 94660; 99285-25; J1100

== ENCOUNTER 2025-01-29 06:01 | Inpatient (IN) | payer OTHER, BC ==
[2025-01-29 06:06] VITALS: BMI 28.5
[2025-01-29] MEDS ORDERED: ONDANSETRON 4 MG/2 ML VIAL ONE (07:46)
[2025-01-29] MEDS ORDERED: ACETAMINOPHEN INJECTION 100 ML ONE (07:46)
[2025-01-29 07:53] LABS: MCHC 31.7 g/dl (32.3-36.5); MEAN CELL VOLUME 99.3 fl (79.0-92.2); MEAN PLT VOLUME 9.6 fl (9.4-12.4); RDW 14.0 % (12.2-16.4)
[2025-01-29] MEDS: ACETAMINOPHEN 1000 MG/100 ML BAG IVPB ONE (08:01)
[2025-01-29] MEDS: ONDANSETRON 4 MG/2 ML VIAL IVPB ONE (08:01)
[2025-01-29 08:13] LABS: CO2 31 mmol/L (21-32); GLUCOSE,RANDOM 114 mg/dL (74-106)
[2025-01-29 08:15] LABS: SGOT/AST 19 U/L (15-37); SGPT/ALT 16 U/L (13-61)
[2025-01-29 08:16] LABS: CREATININE 7.6 mg/dL (0.55-1.3); TOT PROT 7.8 g/dl (6.4-8.2)
[2025-01-29 08:18] LABS: ALK PHOS 122 U/L (45-117)
[2025-01-29 08:19] LABS: INR 3.23 (0.83-1.09); PROTHROMBIN TIME (PATIENT) 35.5 SEC (9.7-13.0)
[2025-01-29 08:21] LABS: ACTIVATED PTT 46.8 SECONDS (25.2-36.5)
[2025-01-29 08:35] LABS: LACTIC ACID 3.3 mmol/L (0.4-2.0)
[2025-01-29] MEDS: LACTATED RINGERS SOLUTION 1000 ML INFUS.BAG IV ONE (10:22)
[2025-01-29] MEDS: SODIUM CHLORIDE 1,000 ML IV SCH ×2 (15:29→16:41)
[2025-01-29] MEDS ORDERED: SODIUM CHLORIDE 250 ML IV PRN (16:40)
[2025-01-29 18:14] LABS: LDL CHOLESTEROL (ONLY SJRH) 66 mg/dL (5-100)
[2025-01-29 18:40] LABS: HEPATITIS B SURF AG NON-MATERN NON-REACTIVE (NONREACTIVE)
[2025-01-29 19:08] LABS: HCV DIAGNOSTIC IN-HOUSE W/RFLX NON-REACTIVE (NONREACTIVE)
[2025-01-29] MEDS: ONDANSETRON 4 MG/2 ML VIAL IVPUSH PRN (19:33)
[2025-01-29] MEDS: ALBUTEROL SO4 2.5/IPRATROPIUM 0.5 INH SOL 3 ML VIAL.NEB. NEB SCH (20:22)
[2025-01-29] MEDS: ATORVASTATIN CA 80 MG TABLET (FP) PO SCH (21:03)
[2025-01-29] MEDS: TAMSULOSIN HCL 0.4 MG CAP PO SCH (21:03)
[2025-01-30] MEDS: ACETAMINOPHEN 1000 MG/100 ML BAG IVPB SCH (08:28)
[2025-01-30 09:01] LABS: MCHC 30.8 g/dl (32.3-36.5); MEAN CELL VOLUME 102.5 fl (79.0-92.2); MEAN PLT VOLUME 10.7 fl (9.4-12.4); RDW 14.2 % (12.2-16.4)
[2025-01-30 09:09] LABS: PROTHROMBIN TIME (PATIENT) 48.7 SEC (9.7-13.0)
[2025-01-30] MEDS: LOSARTAN POTASSIUM 50 MG TABLET PO SCH (09:28)
[2025-01-30 09:34] LABS: TOT PROT 6.6 g/dl (6.4-8.2)
[2025-01-30 09:35] LABS: ALK PHOS 102.0 U/L (45-117)
[2025-01-30 09:37] LABS: CO2 30.0 mmol/L (21-32); GLUCOSE,RANDOM 91.0 mg/dL (74-106); N-TERMINAL BNP 30824.4 pg/ml (5-125)
[2025-01-30 09:38] LABS: CREATININE 7.3 mg/dL (0.55-1.3); SGOT/AST 25.0 U/L (15-37); SGPT/ALT 14.0 U/L (13-61)
[2025-01-30 09:51] LABS: INR 4.47 (0.83-1.09)
[2025-01-30] MEDS: FOLIC ACID 1 MG TABLET (FP) PO SCH (09:55)
[2025-01-30] MEDS: THIAMINE 100 MG TABLET PO SCH (09:55)
[2025-01-30 09:56] LABS: LACTIC ACID 4.7 mmol/L (0.4-2.0)
[2025-01-30] MEDS: SODIUM CHLORIDE 500 ML IV STA (10:26)
[2025-01-30] MEDS: SODIUM CHLORIDE 1,000 ML IV SCH (11:47)
[2025-01-30] MEDS: MAGNESIUM SULF 50% (8.12 MEQ/2 ML-1 GM VIAL) IVPB ONE (15:02)
[2025-01-30 17:47] LABS: LACTIC ACID 3.6 mmol/L (0.4-2.0)
[2025-01-30] MEDS ORDERED: WARFARIN NA 5 MG TABLET PO SCH (18:00)
[2025-01-30] MEDS: SODIUM CHLORIDE 1,000 ML IV STA (19:41)
[2025-01-30] MEDS ORDERED: SODIUM CHLORIDE 250 ML IV PRN ×2 (21:32→21:33)
[2025-01-31] MEDS: SODIUM CHLORIDE 500 ML IV STA ×3 (05:33→22:44)
[2025-01-31 07:41] LABS: MCHC 30.3 g/dl (32.3-36.5); MEAN CELL VOLUME 102.6 fl (79.0-92.2); MEAN PLT VOLUME 10.9 fl (9.4-12.4); RDW 14.4 % (12.2-16.4)
[2025-01-31 08:04] LABS: CO2 27 mmol/L (21-32); GLUCOSE,RANDOM 68 mg/dL (74-106)
[2025-01-31 08:07] LABS: SGOT/AST 20 U/L (15-37); SGPT/ALT 13 U/L (13-61)
[2025-01-31 08:09] LABS: ALK PHOS 87 U/L (45-117); TOT PROT 5.7 g/dl (6.4-8.2)
[2025-01-31 08:19] LABS: CREATININE 8.7 mg/dL (0.55-1.3)
[2025-01-31 08:24] LABS: PROTHROMBIN TIME (PATIENT) 61.2 SEC (9.7-13.0)
[2025-01-31 08:36] LABS: INR 5.56 (0.83-1.09)
[2025-01-31 08:49] LABS: LACTIC ACID 3.8 mmol/L (0.4-2.0)
[2025-01-31] MEDS ORDERED: SIMETHICONE 40 MG/0.6 ML BOTTLE PO PRN (10:48)
[2025-01-31] MEDS: MIDODRINE HCL 5 MG TABLET PO ONE (11:05)
[2025-01-31] MEDS: ACETAMINOPHEN 1000 MG/100 ML BAG IVPB SCH (11:05)
[2025-01-31] MEDS: PHYTONADIONE 10 MG/1 ML AMP IVPB ONE (11:06)
[2025-01-31] MEDS: POLYETHYLENE GLYCOL (HEALTHYLAX) 3350 17 GM PACKET PO SCH (13:35)
[2025-01-31] MEDS ORDERED: MIDODRINE HCL 5 MG TABLET PO SCH (14:00)
[2025-01-31] MEDS: ALBUMIN HUMAN 25% 12.5 GM/50 ML VIAL IV SCH (16:30)
[2025-02-01] MEDS: SENNOSIDES 8.8 MG/5 ML SYRUP PO ONE (05:58)
[2025-02-01 08:13] LABS: ABSOLUTE IMMATURE GRANULOCYTES 0.07 x10^3/uL (0.0-0.031); MONOCYTE # 0.60 x10^3/uL (0.30-0.82)
[2025-02-01 08:14] LABS: BASOPHILS # 0.03 x10^3/uL (0.01-0.08); EOSINOPHIL % 1.8 % (0.8-7.0); EOSINOPHILS # 0.15 x10^3/uL (0.04-0.54); MCHC 31.4 g/dl (32.3-36.5); MEAN CELL VOLUME 100.6 fl (79.0-92.2); MEAN PLT VOLUME 10.9 fl (9.4-12.4); MONOCYTE % 7.0 % (5.3-12.2); RDW 14.2 % (12.2-16.4)
[2025-02-01 08:27] LABS: INR 1.28 (0.83-1.09); PROTHROMBIN TIME (PATIENT) 14.0 SEC (9.7-13.0)
[2025-02-01 08:35] LABS: CO2 32.0 mmol/L (21-32); GLUCOSE,RANDOM 75.0 mg/dL (74-106)
[2025-02-01 08:37] LABS: CREATININE 5.4 mg/dL (0.55-1.3)
[2025-02-01 08:38] LABS: SGOT/AST 22.0 U/L (15-37); SGPT/ALT 13.0 U/L (13-61)
[2025-02-01 08:39] LABS: TOT PROT 5.5 g/dl (6.4-8.2)
[2025-02-01 08:42] LABS: ALK PHOS 104.0 U/L (45-117)
[2025-02-01] MEDS ORDERED: SODIUM CHLORIDE 1,000 ML IV STA (09:04)
[2025-02-01] MEDS: MIDODRINE HCL 5 MG TABLET PO SCH (11:08)
[2025-02-01] MEDS: DOCUSATE SODIUM 100 MG CAPSULE (FP) PO SCH (14:38)
[2025-02-01 19:28] LABS: MCHC 31.5 g/dl (32.3-36.5); MEAN CELL VOLUME 99.1 fl (79.0-92.2); MEAN PLT VOLUME 10.8 fl (9.4-12.4); RDW 14.1 % (12.2-16.4)
[2025-02-01 19:49] LABS: CO2 32.0 mmol/L (21-32); GLUCOSE,RANDOM 100.0 mg/dL (74-106)
[2025-02-01 19:52] LABS: CREATININE 6.5 mg/dL (0.55-1.3); SGOT/AST 28.0 U/L (15-37); SGPT/ALT 15.0 U/L (13-61)
[2025-02-01 19:53] LABS: TOT PROT 5.6 g/dl (6.4-8.2)
[2025-02-01 19:55] LABS: ALK PHOS 126.0 U/L (45-117)
[2025-02-01] MEDS: SENNOSIDES 8.8 MG/5 ML SYRUP PO SCH (21:55)
[2025-02-02] MEDS: SODIUM CHLORIDE 500 ML IV STA (01:35)
[2025-02-02 08:20] LABS: MCHC 30.5 g/dl (32.3-36.5); MEAN CELL VOLUME 100.9 fl (79.0-92.2); MEAN PLT VOLUME 10.8 fl (9.4-12.4); RDW 14.1 % (12.2-16.4)
[2025-02-02 08:28] LABS: INR 1.1 (0.83-1.09); PROTHROMBIN TIME (PATIENT) 12.1 SEC (9.7-13.0)
[2025-02-02 09:04] LABS: LACTIC ACID 2.1 mmol/L (0.4-2.0)
[2025-02-02] MEDS ORDERED: SODIUM CHLORIDE 250 ML IV PRN (10:35)
[2025-02-02] MEDS: MINERAL OIL ENEMA 133 ML ENEMA RC ONE ×2 (14:51→17:30)
[2025-02-02] MEDS: WARFARIN NA 2.5 MG TABLET PO SCH (17:29)
[2025-02-02] MEDS: ACETAMINOPHEN 1000 MG/100 ML BAG IVPB SCH (17:30)
[2025-02-03 08:09] LABS: MCHC 31.0 g/dl (32.3-36.5); MEAN CELL VOLUME 99.1 fl (79.0-92.2); MEAN PLT VOLUME 11.4 fl (9.4-12.4); RDW 14.1 % (12.2-16.4)
[2025-02-03 08:10] LABS: INR 1.2 (0.83-1.09); PROTHROMBIN TIME (PATIENT) 13.1 SEC (9.7-13.0)
[2025-02-03] MEDS: MIDODRINE HCL 5 MG TABLET PO ONE (08:19)
[2025-02-03 08:45] LABS: CO2 33.0 mmol/L (21-32); GLUCOSE,RANDOM 101.0 mg/dL (74-106)
[2025-02-03 08:48] LABS: CREATININE 5.8 mg/dL (0.55-1.3); SGOT/AST 33.0 U/L (15-37); SGPT/ALT 15.0 U/L (13-61)
[2025-02-03 08:50] LABS: TOT PROT 5.9 g/dl (6.4-8.2)
[2025-02-03 08:55] LABS: ALK PHOS 169.0 U/L (45-117)
[2025-02-03] MEDS: LACTATED RINGERS SOLUTION 1,000 ML/1,000 ML INFUS.BAG IV ONE (09:33)
[2025-02-03] MEDS: LACTATED RINGERS SOLUTION 500 ML/500 ML INFUS.BAG IV ONE (10:45)
[2025-02-03] MEDS ORDERED: PATIENT'S OWN MEDICATION (NON-FORMULARY) (Ferric Citrate [Auryxia] 210 MG Tablet) PO SCH (14:00)
[2025-02-03] MEDS ORDERED: SODIUM CHLORIDE 250 ML IV PRN (14:35)
[2025-02-03] MEDS: ACETAMINOPHEN 325 MG TABLET (FP) PO ONE (21:58)
[2025-02-04] MEDS: TRIMETHOBENZAMIDE HCL 200MG/2ML INJ IM ONE (01:04)
[2025-02-04 01:55] LABS: CO2 31.0 mmol/L (21-32); GLUCOSE,RANDOM 114.0 mg/dL (74-106)
[2025-02-04 01:58] LABS: CREATININE 7.3 mg/dL (0.55-1.3); SGOT/AST 38.0 U/L (15-37); SGPT/ALT 20.0 U/L (13-61)
[2025-02-04] MEDS ORDERED: MAGNESIUM 1GM/D5W - 1 GM/100 ML IVPB IVPB ONE (01:59)
[2025-02-04 02:00] LABS: TOT PROT 5.9 g/dl (6.4-8.2)
[2025-02-04 02:01] LABS: ALK PHOS 182.0 U/L (45-117)
[2025-02-04] MEDS ORDERED: morphine CARPU-JECT 4 MG/1 ML DISP.SYRIN IVPUSH ONE (02:53)
[2025-02-04] MEDS: MAGNESIUM SULFATE IN WATER 2 GM/50 ML IVPB IVPB ONE (03:27)
[2025-02-04] MEDS: MELATONIN 5 MG TABLETS PO ONE (03:29)
[2025-02-04] MEDS: ACETAMINOPHEN 325 MG TABLET (FP) PO PRN (04:07)
[2025-02-04] MEDS: METOPROLOL TARTRATE 5 MG/5 ML VIAL IVPUSH ONE (05:17)
[2025-02-04 06:54] LABS: MCHC 31.1 g/dl (32.3-36.5); MEAN PLT VOLUME 11.5 fl (9.4-12.4)
[2025-02-04 06:55] LABS: MEAN CELL VOLUME 100.0 fl (79.0-92.2); RDW 14.4 % (12.2-16.4)
[2025-02-04 06:57] LABS: MCHC 30.9 g/dl (32.3-36.5); MEAN CELL VOLUME 99.4 fl (79.0-92.2); MEAN PLT VOLUME 11.6 fl (9.4-12.4); RDW 14.2 % (12.2-16.4)
[2025-02-04 07:09] LABS: INR 1.67 (0.83-1.09); PROTHROMBIN TIME (PATIENT) 18.2 SEC (9.7-13.0)
[2025-02-04] MEDS ORDERED: METOPROLOL TARTRATE 25 MG TABLET (FP) PO SCH (10:00)
[2025-02-04] MEDS: LIDOCAINE 4% PATCH TP SCH (15:00)
[2025-02-04] MEDS: MELATONIN 5 MG TABLETS PO SCH (21:57)
[2025-02-04] MEDS: LIDOCAINE PATCH REMOVAL MC SCH (23:30)
[2025-02-05 07:33] LABS: ABSOLUTE IMMATURE GRANULOCYTES 0.51 x10^3/uL (0.0-0.031); BASOPHILS # 0.03 x10^3/uL (0.01-0.08); EOSINOPHIL % 1.4 % (0.8-7.0); EOSINOPHILS # 0.18 x10^3/uL (0.04-0.54); MCHC 30.7 g/dl (32.3-36.5); MEAN CELL VOLUME 99.4 fl (79.0-92.2); MEAN PLT VOLUME 11.6 fl (9.4-12.4); MONOCYTE # 0.64 x10^3/uL (0.30-0.82); MONOCYTE % 5.0 % (5.3-12.2); RDW 14.3 % (12.2-16.4)
[2025-02-05 08:14] LABS: CO2 32.0 mmol/L (21-32); GLUCOSE,RANDOM 87.0 mg/dL (74-106)
[2025-02-05 08:17] LABS: CREATININE 5.6 mg/dL (0.55-1.3); SGPT/ALT 17.0 U/L (13-61)
[2025-02-05 08:18] LABS: SGOT/AST 33.0 U/L (15-37)
[2025-02-05 08:19] LABS: TOT PROT 5.3 g/dl (6.4-8.2)
[2025-02-05 08:20] LABS: ALK PHOS 185.0 U/L (45-117)
[2025-02-05 08:34] LABS: INR 2.04 (0.83-1.09); PROTHROMBIN TIME (PATIENT) 22.2 SEC (9.7-13.0)
[2025-02-05] MEDS ORDERED: PIPERACILLIN/TAZOB 3.375 GM 3.375 GM in DEXTROSE 5%-WATER - 50 ML IVPB SCH (10:45)
[2025-02-05] MEDS: PIPERACILLIN/TAZOB 2.25 GM 2.25 GM in DEXTROSE 5%-WATER - 50 ML IVPB SCH (11:44)
[2025-02-05 12:08] LABS: ERYTHROCYTE SEDIMENTATION RATE > 140 mm/hr (0-20)
[2025-02-05] MEDS: AMPICILLIN NA/SULBACTAM NA 3 GM in SODIUM CHLORIDE 100 ML IVPB SCH (21:05)
[2025-02-06 06:33] LABS: ABSOLUTE IMMATURE GRANULOCYTES 0.46 x10^3/uL (0.0-0.031); BASOPHILS # 0.05 x10^3/uL (0.01-0.08); EOSINOPHIL % 1.1 % (0.8-7.0); EOSINOPHILS # 0.15 x10^3/uL (0.04-0.54); MCHC 31.2 g/dl (32.3-36.5); MEAN CELL VOLUME 99.7 fl (79.0-92.2); MEAN PLT VOLUME 11.4 fl (9.4-12.4); MONOCYTE # 0.58 x10^3/uL (0.30-0.82); MONOCYTE % 4.3 % (5.3-12.2); RDW 14.5 % (12.2-16.4)
[2025-02-06 06:49] LABS: INR 2.63 (0.83-1.09); PROTHROMBIN TIME (PATIENT) 28.7 SEC (9.7-13.0)
[2025-02-06 07:01] LABS: CO2 29.0 mmol/L (21-32); GLUCOSE,RANDOM 85.0 mg/dL (74-106)
[2025-02-06 07:04] LABS: CREATININE 7.4 mg/dL (0.55-1.3); SGPT/ALT 17.0 U/L (13-61)
[2025-02-06 07:05] LABS: SGOT/AST 34.0 U/L (15-37)
[2025-02-06 07:06] LABS: TOT PROT 5.6 g/dl (6.4-8.2)
[2025-02-06 07:07] LABS: ALK PHOS 201.0 U/L (45-117)
[2025-02-06] MEDS ORDERED: SODIUM CHLORIDE 250 ML IV PRN (15:25)
[2025-02-06] MEDS ORDERED: SIMETHICONE 40 MG/0.6 ML BOTTLE PO PRN (21:00)
[2025-02-06] MEDS: DOCUSATE SODIUM 100 MG CAPSULE (FP) PO SCH (21:19)
[2025-02-06] MEDS: ACETAMINOPHEN 325 MG TABLET (FP) PO PRN (21:19)
[2025-02-06] MEDS: MELATONIN 5 MG TABLETS PO SCH (21:19)
[2025-02-06] MEDS: ATORVASTATIN CA 80 MG TABLET (FP) PO SCH (21:19)
[2025-02-06] MEDS: LIDOCAINE PATCH REMOVAL MC SCH (21:21)
[2025-02-06] MEDS: SENNOSIDES 8.8 MG/5 ML SYRUP PO SCH (21:21)
[2025-02-06] MEDS ORDERED: LIDOCAINE PATCH REMOVAL MC SCH (22:00)
[2025-02-06] MEDS: AMPICILLIN NA/SULBACTAM NA 3 GM in SODIUM CHLORIDE 100 ML IVPB SCH (23:19)
[2025-02-07] MEDS: ALBUTEROL SO4 2.5/IPRATROPIUM 0.5 INH SOL 3 ML VIAL.NEB. NEB SCH (07:15)
[2025-02-07 08:31] LABS: ABSOLUTE IMMATURE GRANULOCYTES 0.33 x10^3/uL (0.0-0.031); BASOPHILS # 0.03 x10^3/uL (0.01-0.08); EOSINOPHIL % 0.9 % (0.8-7.0); EOSINOPHILS # 0.13 x10^3/uL (0.04-0.54); MCHC 30.4 g/dl (32.3-36.5); MEAN CELL VOLUME 99.7 fl (79.0-92.2); MEAN PLT VOLUME 11.4 fl (9.4-12.4); MONOCYTE # 0.49 x10^3/uL (0.30-0.82); MONOCYTE % 3.5 % (5.3-12.2); RDW 14.6 % (12.2-16.4)
[2025-02-07 08:59] LABS: CO2 27 mmol/L (21-32); GLUCOSE,RANDOM 80 mg/dL (74-106)
[2025-02-07 09:02] LABS: SGOT/AST 33 U/L (15-37); SGPT/ALT 17 U/L (13-61)
[2025-02-07 09:04] LABS: TOT PROT 6.0 g/dl (6.4-8.2)
[2025-02-07 09:05] LABS: ALK PHOS 213 U/L (45-117)
[2025-02-07 09:12] LABS: CREATININE 8.9 mg/dL (0.55-1.3)
[2025-02-07 09:43] LABS: ERYTHROCYTE SEDIMENTATION RATE 107 mm/hr (0-20)
[2025-02-07] MEDS: LIDOCAINE 4% PATCH TP SCH (09:43)
[2025-02-07] MEDS: MIDODRINE HCL 5 MG TABLET PO SCH (09:44)
[2025-02-07 10:11] LABS: INR 3.19 (0.83-1.09); PROTHROMBIN TIME (PATIENT) 34.8 SEC (9.7-13.0)
[2025-02-07] MEDS: EPOETIN ALFA-EPBX 3,000 UNIT/ML VIAL IVPUSH ONE (10:53)
[2025-02-07] MEDS ORDERED: PIPERACILLIN/TAZOB 2.25 GM 2.25 GM in DEXTROSE 5%-WATER - 50 ML IVPB SCH (15:15)
[2025-02-07] MEDS: PIPERACILLIN/TAZOB 2.25 GM 2.25 GM in DEXTROSE 5%-WATER - 50 ML IVPB SCH (15:41)
[2025-02-08 08:42] LABS: ABSOLUTE IMMATURE GRANULOCYTES 0.17 x10^3/uL (0.0-0.031); BASOPHILS # 0.04 x10^3/uL (0.01-0.08); EOSINOPHIL % 0.8 % (0.8-7.0); EOSINOPHILS # 0.11 x10^3/uL (0.04-0.54); MCHC 30.8 g/dl (32.3-36.5); MEAN CELL VOLUME 99.3 fl (79.0-92.2); MEAN PLT VOLUME 11.1 fl (9.4-12.4); MONOCYTE # 0.57 x10^3/uL (0.30-0.82); MONOCYTE % 4.3 % (5.3-12.2); RDW 14.6 % (12.2-16.4)
[2025-02-08 08:49] LABS: INR 2.77 (0.83-1.09); PROTHROMBIN TIME (PATIENT) 30.5 SEC (9.7-13.0)
[2025-02-08 09:12] LABS: CREATININE 6.1 mg/dL (0.55-1.3); SGPT/ALT 16.0 U/L (13-61)
[2025-02-08 09:13] LABS: CO2 33.0 mmol/L (21-32); GLUCOSE,RANDOM 83.0 mg/dL (74-106)
[2025-02-08 09:14] LABS: TOT PROT 5.7 g/dl (6.4-8.2)
[2025-02-08 09:15] LABS: ALK PHOS 194.0 U/L (45-117)
[2025-02-08 09:16] LABS: SGOT/AST 36.0 U/L (15-37)
[2025-02-08] MEDS: WARFARIN NA 2.5 MG TABLET PO SCH (17:32)
[2025-02-08] MEDS: PIPERACILLIN/TAZOB 2.25 GM 2.25 GM/50 ML BAG IVPB SCH (17:32)
[2025-02-09 09:06] LABS: ABSOLUTE IMMATURE GRANULOCYTES 0.16 x10^3/uL (0.0-0.031); BASOPHILS # 0.06 x10^3/uL (0.01-0.08); EOSINOPHIL % 1.3 % (0.8-7.0); EOSINOPHILS # 0.19 x10^3/uL (0.04-0.54); MCHC 30.7 g/dl (32.3-36.5); MEAN CELL VOLUME 100.7 fl (79.0-92.2); MEAN PLT VOLUME 11.2 fl (9.4-12.4); MONOCYTE # 0.49 x10^3/uL (0.30-0.82); MONOCYTE % 3.4 % (5.3-12.2); RDW 14.6 % (12.2-16.4)
[2025-02-09 09:07] LABS: MCHC 30.5 g/dl (32.3-36.5); MEAN CELL VOLUME 100.6 fl (79.0-92.2); MEAN PLT VOLUME 11.0 fl (9.4-12.4); RDW 14.6 % (12.2-16.4)
[2025-02-09 09:15] LABS: INR 2.58 (0.83-1.09); PROTHROMBIN TIME (PATIENT) 28.1 SEC (9.7-13.0)
[2025-02-09 10:03] LABS: CO2 31 mmol/L (21-32)
[2025-02-09 10:04] LABS: GLUCOSE,RANDOM 78 mg/dL (74-106)
[2025-02-09 10:06] LABS: SGOT/AST 34 U/L (15-37); SGPT/ALT 18 U/L (13-61)
[2025-02-09 10:08] LABS: TOT PROT 6.5 g/dl (6.4-8.2)
[2025-02-09 10:09] LABS: ALK PHOS 222 U/L (45-117)
[2025-02-09 10:10] LABS: CO2 30 mmol/L (21-32); GLUCOSE,RANDOM 79 mg/dL (74-106)
[2025-02-09 10:12] LABS: CREATININE 7.7 mg/dL (0.55-1.3)
[2025-02-09 10:14] LABS: CREATININE 7.6 mg/dL (0.55-1.3)
[2025-02-09] MEDS ORDERED: EPOETIN ALFA-EPBX 4,000 UNIT/ML VIAL SQ ONE (12:54)
[2025-02-09] MEDS ORDERED: SODIUM CHLORIDE 250 ML IV PRN (12:54)
[2025-02-09] MEDS: EPOETIN ALFA-EPBX 2,000 UNIT, EPOETIN ALFA-EPBX 3,000 UNIT IVPUSH ONE (13:12)
[2025-02-09] MEDS: TRIMETHOBENZAMIDE HCL 200MG/2ML INJ IM PRN (14:34)
[2025-02-09] MEDS: TAMSULOSIN HCL 0.4 MG CAP PO SCH (22:13)
[2025-02-09] MEDS: ACETAMINOPHEN 325 MG TABLET (FP) PO ONE (23:02)
[2025-02-10] MEDS ORDERED: COSYNTROPIN 0.25 MG VIAL IVPUSH ONE (08:00)
[2025-02-10 10:13] LABS: MCHC 29.7 g/dl (32.3-36.5); MEAN CELL VOLUME 102.0 fl (79.0-92.2); MEAN PLT VOLUME 11.3 fl (9.4-12.4); RDW 14.6 % (12.2-16.4)
[2025-02-10] MEDS: COSYNTROPIN 0.25 MG VIAL IVPUSH ONE (10:31)
[2025-02-10 10:36] LABS: GLUCOSE,RANDOM 108.0 mg/dL (74-106)
[2025-02-10 10:37] LABS: CO2 32.0 mmol/L (21-32)
[2025-02-10 10:40] LABS: CREATININE 5.8 mg/dL (0.55-1.3); SGPT/ALT 16.0 U/L (13-61)
[2025-02-10 10:41] LABS: SGOT/AST 29.0 U/L (15-37)
[2025-02-10 10:43] LABS: ALK PHOS 197.0 U/L (45-117)
[2025-02-10 10:44] LABS: TOT PROT 6.6 g/dl (6.4-8.2)
[2025-02-10 11:53] VITALS: RESP 18
[2025-02-10 12:22] LABS: INR 2.68 (0.83-1.09); PROTHROMBIN TIME (PATIENT) 29.5 SEC (9.7-13.0)
[2025-02-10] MEDS ORDERED: SODIUM CHLORIDE 250 ML IV PRN (14:14)
[2025-02-10 15:41] VITALS: BP 120/73; PULSE 81; TEMP 98.6
[2025-02-10] MEDS ORDERED: SEVELAMER CARBONATE 800 MG TAB (FP) PO SCH (17:30)
[2025-02-11] MEDS ORDERED: EPOETIN ALFA-EPBX 10,000 UNIT/ML VIAL SQ ONE (14:14)
== END 2025-02-10 18:05 | disposition home or self-care (01) | DRG 438 ==
LOC: JER 06:01 → JERBED 11:17 → J6S 12:51 → J2W 02-04 02:42 → J6S 02-06 13:00
PROVIDERS: ADMIT Student in an Organized Health Care Education/Training Program; ATTEND Internal Medicine
PROC: 5A1D70Z Performance of Urinary Filtration, Intermittent, Less than 6 Hours Per Day (ICD-10-PCS; principal; 2025-02-01)
DX: K85.20 Alcohol induced acute pancreatitis without necrosis or infection (principal); N18.6 End stage renal disease; I13.2 Hypertensive heart and chronic kidney disease with heart failure and with stage 5 chronic kidney disease, or end stage renal disease; I50.22 Chronic systolic (congestive) heart failure; I42.9 Cardiomyopathy, unspecified; E87.20 Acidosis, unspecified; Z99.2 Dependence on renal dialysis; J44.9 Chronic obstructive pulmonary disease, unspecified; Z99.81 Dependence on supplemental oxygen; N40.0 Benign prostatic hyperplasia without lower urinary tract symptoms; I48.91 Unspecified atrial fibrillation; F10.10 Alcohol abuse, uncomplicated; D53.9 Nutritional anemia, unspecified; I95.89 Other hypotension; K42.9 Umbilical hernia without obstruction or gangrene
CPT/HCPCS: 36415; 71045-TC-FY; 74018-TC-FY; 74176-TC; 74177-TC; 76700-TC; 80048; 80053; 80061; 82248; 82533; 82962; 82977; 83605; 83690; 83735; 83880; 84080; 84100; 84436; 84443; 84478; 84484; 85025; 85027; 85610; 85651; 85730; 86140; 86704; 86803; 86850; 86900; 86901; 87040; 87338; 87340; 87517; 93005; 93010; 93306-TC; 94640; 99285-25; J0834; P9047; Q5106